=== PATIENT | male | born 1955 | race Caucasian/White ===

== ENCOUNTER → 2016-07-05 | Outpatient (CLI) | payer OTHER ==
[~2016-07-05] MED LIST: CHOL100010 PO; ESCI10TA17 PO; FIBER; FRS/40 PO; HYDROMORPHONE PUMP; LEVO-217 PO; LISI5TAB3 PO; MORP15TA PO; MRPSR60 PO; MULT-506 PO; POLY335019 PO; TOPI25TA99 PO; TRAZ50TA35 PO
--- NOTE | 2016-07-05 16:28 | DIAGNOSTIC IMAGING REPORT ---
THORACOLUMBAR SPINE 2 VIEWS CLINICAL HISTORY: Lumbago. Post laminectomy syndrome. Lead placement. FINDINGS: AP and lateral views of the thoracolumbar spine are compared to study dated 05/02/2011. The skeletal structures are osteopenic. There is moderate lumbosacral levocurvature. There are postoperative changes from laminectomy and posterior fusion with interposition bone grafting from L4 to S1. A spinal stimulator device projects over the right lower quadrant. The pain pump catheter appears intact, and enters the central spinal canal posteriorly at the level of L2-L3. This extends superiorly into the thoracic region, and intrathecal leads have been placed. These enter the spinal canal at the level of T11 and terminate at the level of T8-T9. Vertebral body height is grossly intact. Alignment appears preserved. There is a nonobstructed abdominal bowel gas pattern noting moderate colonic fecal retention. It likely terminates at the level of T10. A benign appearing sclerotic lesion in the medial left ilium is unchanged from previous. The bony pelvis is intact as visualized. IMPRESSION: 1. Intrathecal leads and pain pump as above. The leads and pump appear intact. 2. Extensive chronic and postoperative changes as above. Dictated: 07/05/2016 4:10 PM Transcribed: 07/05/2016 4:27 PM [email or web address] Electronically signed by: Davey Trejo M.D. 07/05/2016 4:43 PM Dictated Date/Time: 07/05/2016 4:10 PM
== END | disposition home or self-care (01) ==
LOC: C.RADBC 15:28
PROVIDERS: ATTEND Anesthesiology
DX: M54.5 Low back pain (principal); M96.1 Postlaminectomy syndrome, not elsewhere classified

== ENCOUNTER → 2016-09-13 | Outpatient (CLI) | payer OTHER ==
[~2016-09-13] MED LIST changes: +OPTIRAY 320 IV PRN
--- NOTE | 2016-09-13 15:45 | DIAGNOSTIC IMAGING REPORT ---
THORACIC SPINE CT WITH AND WITHOUT INTRAVENOUS CONTRAST HISTORY: Intrathecal catheter. Evaluate for catheter tip granuloma. TECHNIQUE: Multiaxial CT images of the thoracic spine were performed both before and after the intravenous administration of contrast. COMPARISON STUDY: Thoracic spine CT 03/12/2013. FINDINGS: Severe levoscoliosis of the thoracolumbar spine. Posterior fusion at L4-L5. No acute fracture or subluxation within the thoracic or visualized lumbar spine. There is again noted an intrathecal catheter entering the spinal canal at the L2-L3 level. This extends cephalad T11 level. The catheter appears intact. There are also spinal electrodes which enter the central canal at the T10-T11 level and extends cephalad terminating at the T8-T9 disc space level. There is a 4 mm partially partially calcified and slightly enhancing nodule at the tip of the intrathecal catheter. This is consistent with a granuloma. IMPRESSION: 1. A 4 mm partially calcified and slightly enhancing nodule at the tip of the intrathecal catheter. This is consistent with a granuloma. 2. The intrathecal catheter appears intact. 3. Spinal electrodes are unchanged in position. 4. Levoscoliosis. Electronically signed by: Darian Wiseman M.D. 09/13/2016 3:43 PM Dictated Date/Time: 09/13/2016 3:14 PM
== END | disposition home or self-care (01) ==
LOC: C.CTS 14:25
PROVIDERS: ATTEND Physician Assistant
DX: M54.5 Low back pain (principal)

== ENCOUNTER → 2017-03-23 | Outpatient (CLI) | payer OTHER ==
[~2017-03-23] MED LIST changes: -FIBER; -HYDROMORPHONE PUMP; -TOPI25TA99 PO
--- NOTE | 2017-03-26 08:01 | DIAGNOSTIC IMAGING REPORT ---
THORACIC SPINE CT WITH AND WITHOUT INTRAVENOUS CONTRAST HISTORY: Back pain. Intrathecal catheter. Evaluate for catheter tip granuloma. TECHNIQUE: Multiaxial CT images of the thoracic spine were performed both before and after the intravenous administration of contrast. COMPARISON STUDY: Thoracic spine CT 09/13/2016. FINDINGS: Severe levoscoliosis of the thoracolumbar spine as well as kyphosis. No acute fracture or subluxation within the thoracic spine. There is again noted an intrathecal catheter. The entry level project engineer is not included on this study. This extends cephalad to the T11 level. The visualized catheter appears intact. There are also spinal electrodes which enter the central canal at the T10-T11 level and extends cephalad terminating at the T8-T9 disc space level. There is a 4 mm partially calcified and slightly enhancing nodule at the tip of the intrathecal catheter. This is consistent with a granuloma and is not significantly changed. There are few punctate stones within the left kidney. IMPRESSION: 1. A 4 mm partially calcified and slightly enhancing nodule at the tip of the intrathecal catheter. This is consistent with a granuloma and is not significantly change. 2. The visualized intrathecal catheter appears intact. 3. Spinal electrodes are unchanged in position. 4. Levoscoliosis. Electronically signed by: Darian Wiseman M.D. 03/23/2017 2:26 PM Dictated Date/Time: 03/23/2017 2:17 PM
== END | disposition home or self-care (01) ==
LOC: C.CTS 11:54
PROVIDERS: ATTEND Physician Assistant Medical
DX: M54.9 Dorsalgia, unspecified (principal); Z96.89 Presence of other specified functional implants

== ENCOUNTER → 2017-09-11 | Outpatient (CLI) | payer OTHER ==
--- NOTE | 2017-09-11 12:48 | DIAGNOSTIC IMAGING REPORT ---
CT OF THE THORACIC SPINE WITH AND WITHOUT CONTRAST CLINICAL HISTORY: Intrathecal catheter. Evaluate for catheter tip granuloma. COMPARISON STUDY: CT of the thoracic spine March 23, 2017. TECHNIQUE: Axial images of the thoracic spine were obtained before and after intravenous administration of 121 cc of Optiray 320. Sagittal and coronal reconstructions were viewed. FINDINGS: Severe levoscoliosis of the proximal lumbar spine is noted with exaggerated kyphosis. No acute fracture or subluxation within the thoracic spine is identified. Intrathecal catheter is noted that enters the canal at the L2-L3 level. Visualized portions of the catheter appear intact although the subcutaneous portion of the catheter is not visualized in its entirety. Catheter extends caudally with the tip at the upper T11 level. Note is made of an 8 mm partially calcified and slightly enhancing nodule at the tip of the intrathecal catheter which was shown on previous exam. This suggests a catheter tip granuloma. Note is made of spinal electrodes which enter the canal at the T10-T11 level with tip at the T8-T9 level. No additional intracanalicular masses are present. Visualized portions of the lungs are unremarkable. Biliary ductal dilatation is unchanged and likely related to cholecystectomy. IMPRESSION: 1. 8 mm partially calcified slightly enhancing nodule at the tip of the intrathecal catheter, as shown on prior exam. This suggests a catheter tip granuloma. 2. Visualized portions of the intrathecal catheter appear intact. However, the catheter is not imaged in its entirety on this exam. 3. Spinal intracanalicular electrodes, as described above. 4. Levoscoliosis. Electronically signed by: Salazar Turner M.D. 09/11/2017 12:47 PM Dictated Date/Time: 09/11/2017 9:55 AM
== END | disposition home or self-care (01) ==
LOC: C.CTS 09:07
PROVIDERS: ATTEND Physician Assistant
DX: M41.9 Scoliosis, unspecified (principal); Z97.8 Presence of other specified devices; M53.84 Other specified dorsopathies, thoracic region

== ENCOUNTER 2022-04-01 12:26 | Inpatient (IN) ==
[2022-04-01] MEDS ORDERED: SODIUM CHLORIDE 0.9% 1000ML 1,000 ML IV STA (12:46)
[2022-04-01] MEDS ORDERED: dilTIAZem HCl 5 MG/ML 5 ML VIAL IV ONE (12:49)
[2022-04-01] MEDS ORDERED: AMIODARONE 150MG / 100ML D5W IV ONE (12:51)
[2022-04-01] MEDS ORDERED: AMIODARONE HCL INJ 50 MG/ML 3 ML VIAL IV ONE (12:51)
[2022-04-01] MEDS ORDERED: AMIODARONE IV BOLUS & DRIP IV STA (12:52)
[2022-04-01] MEDS ORDERED: 0.2 MICRON FILTER SET 1 EACH IV STA (12:52)
[2022-04-01] MEDS ORDERED: STAT IV Infusion **Titration per Protocol STA (12:52)
[2022-04-01] MEDS ORDERED: AMIODARONE / D5W 150 MG/100 ML BAG IV STA (12:52)
[2022-04-01] MEDS ORDERED: AMIODARONE / D5W 360 MG/200 ML BAG IV ONE (13:02)
--- NOTE | 2022-04-01 13:02 | Emergency Department Note ---
Impression & Plan Atrial fibrillation with rapid ventricular response Admission ED Provider Note HPI: The patient is a 66-year-old gentleman with history of hypertension, BPH, hypothyroidism, depression, presents the emergency department with a chief complaint of generalized weakness, fatigue, shortness of breath, and chest discomfort. On my initial assessment patient is tachycardic in the 160s, although he is also noted to be hypotensive in the 80s on my initial evaluation he is alert and conversational. He states he does have some mild chest discomfort that has been constant for the past 4 days. Patient states he has not had a sensation of palpitations at all during this time. Patient is alert and oriented otherwise on arrival, he does not display any focal deficits. De nies any recent fevers or cough, states he generally has just felt unwell, short of breath, and states he has not had much energy. ROS: -Cardio: Tachycardia, chest pressure/pain -General: Generalized weakness, fatigue -Pulmonary: Shortness of breath *10 point review systems was conducted and is otherwise negative unless stated above *Outpatient medications and allergy history reviewed PE: General: Alert HEENT: Normocephalic, trachea midline Eyes: Extraocular eye movement is intact, no scleral erythema Pulmonary: Clear to auscultation bilaterally, no wheezing Cardio: Tachycardic rate with irregular rhythm GI: Abdomen is soft, nontender : No suprapubic tenderness MSK: No evidence of trauma or malformation of the extremities, no edema Skin: No evidence of rash Neuro: Alert, no focal deficits Psychiatric: Cooperative hall monitor: - An order was placed for continuous cardiac monitoring - Patient was noted to be in atrial fibrillation with a rate of 170 EKG: Rate: 174 Rhythm: Atrial fibrillation with RVR Intervals: Within normal limits ST changes: No ST elevation Time: 1246 EKG #2: Rate: 120 Rhythm: Atrial fibrillation Intervals: QTC 511 ms, QRS [address] changes: No ST elevation Time: 1349 Interventions provided in ED: -IV amiodarone, IV metoprolol, IV fluid bolus, IV cefepime Medical Decision Making: Patient presented to the emergency department with symptoms of generalized weakness, shortness of breath, mild chest pain. On arrival he is noted to be in atrial fibrillation with RVR with high heart rates into the 170s. Patient was placed on traffic monitor specialist and [place] was applied, patient was initially hypotensive in the 80s systolic therefore fluid bolus was initiated and patient was initiated on amiodarone bolus and drip. Following these interventions, the patient's heart rate did improve into the 130s, blood pressure improved to greater than 100 systolic. Patient states he was symptomatically beginning to feel improved. Initial EKG shows atrial fibrillation with RVR with no obvious ischemic changes. Repeat EKG does not show any evidence of ST elevation and rate is more controlled now 120. Lab work shows an elevated high-sensitivity troponin level of 57, on my reassessment the patient states he is feeling improved. CT angiography of the chest was obtained that does not show any evidence of aortic dissection or PE, is suggestive of right-sided pneumonia. Blood cultures were ordered and patient was ordered a dose of IV cefepime for potential pneumonia, will hold on azithromycin secondary to interaction with amiodarone. Case was discussed with on-call cardiology, Dr. Uriarte, who was in agreement with initiation of amiodarone given the patient's initial hypotension. Patient will be continued on amiodarone drip. He was placed on heparin drip for elevated troponin and new onset atrial fibrillation and is placed for inpatient admission for further discussion on anticoagulation strategy and trending of troponin. No evidence of ST elevation on repeat EKG, no indication for heart alert at this time, patient states he is feeling much improved from his presentation on my reassessment. [facility] was consulted for admission. I discussed the case with the on-call admitting midlevel provider. Patient was admitted in stable condition for further care. * CRITICAL CARE TIME: (55) minutes -Time spent at the bedside and stabilization of tachyarrhythmia/atrial fibrillation with RVR requiring IV medications for rate control, time spent at the bedside, interpretation of diagnostic studies, discussion with other physicians and arrangement of admission. Diagnosis: 1. Atrial fibrillation with RVR, new onset 2. Elevated troponin 3. Community-acquired pneumonia, right-sided 4. Chest pain, acute 5. Generalized weakness 6. Dyspnea Disposition: Admission Jp Tuttle DO Emergency Medicine Past Med/Surg History Medical History Chronic venous stasis dermatitis Depression History of broken collarbone Hypertension Hypothyroidism Kyphoscoliosis Lower extremity venous stasis Lumbar stenosis Osteoporosis Postlaminectomy syndrome of lumbosacral region Sacroiliitis Scoliosis Testicular hernia history of Surgical History Encounter for post-sterilization vasoplasty History of appendectomy Previous back surgery S/P hernia repair Family History Mother Colitis Brother Colitis Hypertension Sister Hypertension Father Hypertension Prostate cancer Myocardial infarction Denies family history of Ovarian cancer Coronary heart disease Breast cancer Colorectal cancer Social History Smoking Status: Never smoker Second Hand Exposure: No; Hx Alcohol Use: No Hx Substance Use: No Preferred Language: Faroese Communication Ability: Effective Visual Impairment: Limited Hearing Ability: Normal Beliefs That Will Affect Care: None marital status: Current Living Situation: Spouse current occupational status: disabled Feels Safe at Home: Yes Childhood Exposure to Second-Hand Smoke: No caffeine: Yes Dental Care, Regularly: Yes Physical Activity Frequency: Daily Seatbelt Use: always Sunscreen Use: Yes Allergies Allergies Allergy/AdvReac Type Severity Reaction Status Date / Time Penicillins Allergy Unknown Rash Verified 04/01/22 15:22 sumatriptan [From Imitrex] Allergy Rash Verified 04/01/22 15:22 Home Meds Home Medications Medication Instructions Recorded Confirmed multivitamin 1 tab PO DAILY 05/17/18 04/01/22 cholecalciferol (vitamin D3) 25 1,000 unit PO DAILY 01/28/19 04/01/22 mcg (1,000 unit) tablet albuterol sulfate 90 mcg/actuation 2 puff inhalation Q6H PRN 09/29/21 04/01/22 aerosol inhaler (ProAir HFA) Shortness Of Breath fluticasone 500 mcg-salmeterol 50 1 inh inhalation BID 09/29/21 04/01/22 mcg/dose blistr powdr for inhalation (Wixela Inhub) escitalopram oxalate 20 mg tablet 20 mg PO DAILY 02/02/22 04/01/22 (Lexapro) Previous Rx's Medication Instructions Recorded polyethylene glycol 3350 8.5 gram 17 gm PO DAILY #72 ea 03/14/19 oral powder packet furosemide 40 mg tablet 40 mg PO DAILY #90 tabs 05/24/21 naloxone 4 mg/actuation nasal 4 mg intranasal Q2M PRN opioid 07/21/21 spray (Narcan) overdose #2 ea baclofen 10 mg tablet 10 mg PO TID #30 tabs 10/27/21 lisinopril 5 mg tablet 5 mg PO DAILY #90 tabs 01/24/22 trazodone 50 mg tablet 100 mg PO HS 90 days #180 tabs 01/26/22 hydrocodone 5 mg-acetaminophen 325 1 tab PO BID PRN break through 02/02/22 mg tablet pain #60 tabs levothyroxine 100 mcg tablet 100 mcg PO QAM #90 tabs 02/20/22 Results & Data (ED) Vital Signs Vital Signs - 24 hr 04/01/22 12:31 04/01/22 12:48 04/01/22 12:49 Temperature 36.9 C Temperature Source Temporal Artery Scan Pulse Rate 105 H Pulse Rate [Right Finger] 168 H Pulse Rhythm [Right Finger] Irregular Pulse Strength [Right Finger] Respiratory Rate 22 40 H Respiratory Effort / Characteristics Non-Labored Respiratory Depth Normal Respiratory Pattern Blood Pressure 99/63 L Blood Pressure [Right Arm] 103/54 L 82/60 L Blood Pressure Mean 75 Blood Pressure Mean [Right Arm] 70 67 Blood Pressure Position [Right Arm] Pulse Oximetry 97 95 Oxygen Delivery Method Room Air Nasal Cannula Oxygen Flow Rate 3 Sepsis New/Unexplained Change in Mental Status No Sepsis Action Taken by Nursing No Action Required Pulse Oximetry Post Tiitration 04/01/22 13:14 04/01/22 13:14 04/01/22 13:16 Temperature Temperature Source Pulse Rate Pulse Rate [Right Finger] 129 H Pulse Rhythm [Right Finger] Pulse Strength [Right Finger] Respiratory Rate Respiratory Effort / Characteristics Respiratory Depth Respiratory Pattern Blood Pressure Blood Pressure [Right Arm] 87/71 L Blood Pressure Mean Blood Pressure Mean [Right Arm] 76 Blood Pressure Position [Right Arm] Pulse Oximetry 98 98 Oxygen Delivery Method Nasal Cannula Nasal Cannula Nasal Cannula Oxygen Flow Rate 3 3 3 Sepsis New/Unexplained Change in Mental Status Sepsis Action Taken by Nursing Pulse Oximetry Post Tiitration 98 04/01/22 13:20 04/01/22 13:30 04/01/22 13:36 Temperature Temperature Source Pulse Rate Pulse Rate [Right Finger] 128 H 144 H 136 H Pulse Rhythm [Right Finger] Pulse Strength [Right Finger] Respiratory Rate Respiratory Effort / Characteristics Respiratory Depth Respiratory Pattern Blood Pressure Blood Pressure [Right Arm] 100/73 124/63 118/70 Blood Pressure Mean Blood Pressure Mean [Right Arm] 82 83 86 Blood Pressure Position [Right Arm] Pulse Oximetry 99 Oxygen Delivery Method Nasal Cannula Oxygen Flow Rate 3 Sepsis New/Unexplained Change in Mental Status Sepsis Action Taken by Nursing Pulse Oximetry Post Tiitration 04/01/22 13:41 04/01/22 13:51 04/01/22 14:06 Temperature Temperature Source Pulse Rate 127 H Pulse Rate [Right Finger] 110 H 115 H Pulse Rhythm [Right Finger] Pulse Strength [Right Finger] Respiratory Rate Respiratory Effort / Characteristics Respiratory Depth Respiratory Pattern Blood Pressure 106/64 Blood Pressure [Right Arm] 117/71 94/69 L Blood Pressure Mean Blood Pressure Mean [Right Arm] 86 77 Blood Pressure Position [Right Arm] Pulse Oximetry Oxygen Delivery Method Oxygen Flow Rate Sepsis New/Unexplained Change in Mental Status Sepsis Action Taken by Nursing Pulse Oximetry Post Tiitration 04/01/22 14:48 04/01/22 15:13 Temperature Temperature Source Pulse Rate Pulse Rate [Right Finger] 123 H 115 H Pulse Rhythm [Right Finger] Irregular Pulse Strength [Right Finger] Normal Respiratory Rate 20 Respiratory Effort / Characteristics Non-Labored Respiratory Depth Normal Respiratory Pattern Regular Blood Pressure Blood Pressure [Right Arm] 106/71 108/70 Blood Pressure Mean Blood Pressure Mean [Right Arm] 82 82 Blood Pressure Position [Right Arm] Lying Pulse Oximetry 99 99 Oxygen Delivery Method Nasal Cannula Room Air Oxygen Flow Rate 3 Sepsis New/Unexplained Change in Mental Status Sepsis Action Taken by Nursing Pulse Oximetry Post Tiitration Laboratory Data Result diagrams: 04/01/22 12:45 04/01/22 12:45 Lab Results 04/01/22 04/01/22 04/01/22 Range/Units 12:45 12:45 12:45 WBC 9.81 (4.8-10.8) K/ul RBC 4.95 (4.63-6.08) M/uL Hgb 15.5 (14.0-18.0) g/dl Hct 44.7 (40.1-51.0) % MCV 90.3 (80.0-100.0) fL MCH 31.3 (25.0-34.0) pg MCHC 34.7 (32.0-36.0) g/dL RDW Std Deviation 46.0 (36.4-46.3) fL RDW Coeff of Kj 13.7 (11.5-14.5) % Plt Count 212 (130-400) K/uL MPV 9.9 (9.4-12.4) fL Immature Gran % (Auto) 0.2 % Neut % (Auto) 81.1 % Lymph % (Auto) 5.7 % [place] % (Auto) 12.7 % Eos % (Auto) 0.0 % Baso % (Auto) 0.3 % Neut # (Auto) 7.95 H (1.4-6.5) K/uL Lymph # (Auto) 0.56 L (1.2-3.4) K/uL [place] # (Auto) 1.25 H (0.24-0.82) K/uL Eos # (Auto) 0.00 (0-0.50) K/uL Baso # (Auto) 0.03 (0-0.2) K/uL Immature Gran # (Auto) 0.02 (0.00-0.02) K/uL PT 11.3 (9.0-12.0) Seconds INR 1.1 (0.9-1.1) APTT 34.4 H (21.0-31.0) Seconds PTT Ratio 1.3 Sodium 141 (136-145) mmol/L Potassium 3.8 (3.5-5.1) mmol/L Chloride 107 (98-107) mmol/L Carbon Dioxide 24 (21-32) mmol/L Anion Gap 10 (3-11) BUN 18 (6-23) mg/dl Creatinine 1.03 (0.6-1.4) mg/dl Est Cr Clr Drug Dosing Not Reportable Est GFR ( Amer) 87.9 ml/min Est GFR (Non-Af Amer) 75.9 ml/min BUN/Creatinine Ratio 17.5 (10-20) Glucose 105 H (70-99(Fasting)) mg/dl Calcium 9.8 (8.5-10.1) mg/dl Magnesium 1.5 L (1.7-2.4) mg/dl Total Bilirubin 1.4 H (0.2-1.0) mg/dl AST 13 (13-39) U/L ALT 9 (7-52) U/L Alkaline Phosphatase 53 (34-104) U/L Troponin I High Sens 57.3 H* (0-20) pg/ml Total Protein 7.0 (6.0-8.3) gm/dl Albumin 3.8 (3.4-5.0) gm/dl Globulin 3.2 (2.5-4.0) gm/dl Albumin/Globulin Ratio 1.2 (0.9-2) Lipase 3 L (11-82) U/L TSH (0.300-4.500) uIu/ml SARS-CoV-2, RNA, NAAT (NEGATIVE) 04/01/22 04/01/22 Range/Units 12:45 13:45 WBC (4.8-10.8) K/ul RBC (4.63-6.08) M/uL Hgb (14.0-18.0) g/dl Hct (40.1-51.0) % MCV (80.0-100.0) fL MCH (25.0-34.0) pg MCHC (32.0-36.0) g/dL RDW Std Deviation (36.4-46.3) fL RDW Coeff of Kj (11.5-14.5) % Plt Count (130-400) K/uL MPV (9.4-12.4) fL Immature Gran % (Auto) % Neut % (Auto) % Lymph % (Auto) % [place] % (Auto) % Eos % (Auto) % Baso % (Auto) % Neut # (Auto) (1.4-6.5) K/uL Lymph # (Auto) (1.2-3.4) K/uL [place] # (Auto) (0.24-0.82) K/uL Eos # (Auto) (0-0.50) K/uL Baso # (Auto) (0-0.2) K/uL Immature Gran # (Auto) (0.00-0.02) K/uL PT (9.0-12.0) Seconds INR (0.9-1.1) APTT (21.0-31.0) Seconds PTT Ratio Sodium (136-145) mmol/L Potassium (3.5-5.1) mmol/L Chloride (98-107) mmol/L Carbon Dioxide (21-32) mmol/L Anion Gap (3-11) BUN (6-23) mg/dl Creatinine (0.6-1.4) mg/dl Est Cr Clr Drug Dosing Est GFR ( Amer) ml/min Est GFR (Non-Af Amer) ml/min BUN/Creatinine Ratio (10-20) Glucose (70-99(Fasting)) mg/dl Calcium (8.5-10.1) mg/dl Magnesium (1.7-2.4) mg/dl Total Bilirubin (0.2-1.0) mg/dl AST (13-39) U/L ALT (7-52) U/L Alkaline Phosphatase (34-104) U/L Troponin I High Sens (0-20) pg/ml Total Protein (6.0-8.3) gm/dl Albumin (3.4-5.0) gm/dl Globulin (2.5-4.0) gm/dl Albumin/Globulin Ratio (0.9-2) Lipase (11-82) U/L TSH 1.899 (0.300-4.500) uIu/ml SARS-CoV-2, RNA, NAAT NEGATIVE (NEGATIVE) Administered Medications Amiodarone HCl/Dextrose (Nexterone / D5w) 360 mg in 200 mls @ 33.333 mls/hr IV ONE ONE Stop: 04/01/22 19:01 Last Admin: 04/01/22 13:08 Dose: 1 mg/min, 33.3 mls/hr Documented By: NGOC Co-signed By: LINA Discontinued Medications Amiodarone HCl/Dextrose (Amiodarone 150mg / 100ml D5w) Confirm Administered Dose 150 mg IV .STTapingo-MED ONE Stop: 04/01/22 12:52 Last Admin: 04/01/22 13:10 Dose: Not Given Documented By: NGOC Amiodarone HCl (Amiodarone Hcl Inj 50 Mg/Ml 3 Ml Vial) Confirm Administered Dose 150 mg IV .STK-MED ONE Stop: 04/01/22 12:52 Last Admin: 04/01/22 13:10 Dose: Not Given Documented By: NGOC Amiodarone HCl (Amiodarone Iv Bolus & Drip) 1 each IV NOW STA; Protocol Stop: 04/01/22 12:53 Last Admin: 04/01/22 13:08 Dose: 1 each Documented By: NGOC Diltiazem HCl (Diltiazem Hcl 5 Mg/Ml 5 Ml Vial) Confirm Administered Dose 25 mg IV .STK-MED ONE Stop: 04/01/22 12:50 Last Admin: 04/01/22 13:09 Dose: Not Given Documented By: NGOC Sodium Chloride (Nss 1000ml) 1,000 mls @ 999 mls/hr IV .Q1H1M STA Stop: 04/01/22 13:46 Last Infusion: 04/01/22 14:09 Dose: 0 mls/hr Documented By: Admin: 04/01/22 13:08 Dose: 999 mls/hr Documented By: NGOC Amiodarone HCl/Dextrose (Nexterone / D5w) 150 mg in 100 mls @ 600 mls/hr IV NOW STA Stop: 04/01/22 13:01 Last Infusion: 04/01/22 13:27 Dose: 0 mls/hr Documented By: NGOC Co-signed By: KAYLA Admin: 04/01/22 13:09 Dose: 600 mls/hr Documented By: NGOC Co-signed By: LINA Magnesium Sulfate/Dextrose (Magnesium Sulfate / D5w) 1 gm in 100 mls @ 100 mls/hr IV NOW STA Stop: 04/01/22 14:39 Last Infusion: 04/01/22 14:57 Dose: 0 mls/hr Documented By: Admin: 04/01/22 13:56 Dose: 100 mls/hr Documented By: NGOC Cefepime HCl (Maxipime) 2,000 mg in 20 mls @ 5 mls/min IV NOW STA; Protocol Stop: 04/01/22 15:01 Last Admin: 04/01/22 15:25 Dose: 5 mls/min Documented By: RSL Ioversol (Optiray 320 500ml) 117 ml IV ONCE ONE Stop: 04/01/22 14:41 Last Admin: 04/01/22 14:40 Dose: 117 ml Documented By: LEXA Metoprolol Tartrate (Metoprolol Tartrate 1 Mg/Ml Vial) 5 mg IV NOW STA Stop: 04/01/22 13:33 Last Admin: 04/01/22 13:41 Dose: 5 mg Documented By: NGOC Miscellaneous (Stat Iv Infusion Titration Per Protocol) 1 each N/A NOW STA Stop: 04/01/22 12:53 Last Admin: 04/01/22 13:32 Dose: Not Given Documented By: [facility] [place] Imaging Data Radiologist's Impression: Chest X-Ray 04/01/22 12:46 XR chest 1V portable HISTORY: 66 years-old Male Chest Pain acute chest pain COMPARISON: Chest radiograph 06/18/2021 TECHNIQUE: AP view of the chest FINDINGS: Cardiac silhouette is enlarged. Subsegmental bibasilar opacities with probable trace pleural effusions. No pneumothorax or overt pulmonary edema. Degenerative changes of the shoulders and spine. Stimulator leads overlie the midthoracic spine. IMPRESSION: 1. Cardiomegaly without overt pulmonary edema. 2. Mild bibasilar opacities favor atelectasis. Pneumonitis could appear similar ly. ACT 112: Negative or not required by law. The above report was generated using voice recognition software. It may contain grammatical, syntax or spelling errors. Electronically signed by: Regulo Shabazz M.D. 04/01/2022 1:49 PM Chest CTA 04/01/22 13:48 CT angio chest PE protocol CT DOSE: 804.01 mGy.cm HISTORY: 66 years-old Male with PE. Acute shortness of breath TECHNIQUE: Multiple CTA images of the chest were obtained after the intravenous administration of 117 ml Optiray. Coronal and sagittal MIPS were obtained from the axial data set and were submitted for review. All measurements were obtained according to NASCET criteria. A dose lowering technique was utilized adhering to the principles of ALARA. COMPARISON: Chest radiograph of same day FINDINGS: Limited exam secondary to positioning and respiratory motion artifact. CTA: Moderate cardiomegaly. Piriform dilation of the ascending thoracic aorta measur es up to 4.5 cm at the level of the main pulmonary artery. No dissection. Dilated pulmonary arteries suggestive of pulmonary arterial hypertension. No pulmonary emboli identified. CT CHEST: No thyroid nodule. Nonspecific mediastinal and hilar lymphadenopathy include subcarinal lymph nodes measuring up to 1.7 cm. No pneumothorax. Trace right ple ural effusion. Subsegmental left basilar atelectasis. No overt pulmonary edema. Dense airspace opacities throughout the right lung are most pronounced in the right lower lobe. Tracheobronchial secretions with mucous plugging. Bronchial wall thickening throughout the right lung. Calculated left kidney measure up to 7 mm. Nonspecific diffuse esophageal wall thickening. Unremarkable soft tissues. No acute fracture. Degenerative changes of the shoulders and spine. Partially imaged catheter is are noted within the central canal of the thoracic spine. No acute fracture identified. IMPRESSION: 1. Cardiomegaly without pulmonary emboli identified. 2. Dense airspace opacities throughout the right lung, most pronounced within the right lower lobe compatible with pneumonia. Follow-up imaging after treatment course is needed to document resolution. 3. Mediastinal and hilar lymphadenopathy, favored to be reactive. 4. Left nephrolithiasis. ACT 112: Negative or not required by law. The above report was generated using voice recognition software. It may contain grammatical, syntax or spelling errors. Electronically signed by: Regulo Shabazz M.D. 04/01/2022 2:52 PM Discharge Plan Visit Data Chief Complaint: Shortness of Breath/Dyspnea Stated Complaint: SOB,CHEST/BACK PAIN,THROAT PAIN ED Provider: Jp Tuttle Discharge Problem: Atrial fibrillation with rapid ventricular response Forms Stand Alone Forms: PrePay Prescriptions Prescriptions: No Action multivitamin tablet 1 tab PO DAILY hydrocodone-acetaminophen 5-325 mg tablet 1 tab PO BID PRN (Reason: break through pain) Qty: 60 0RF Rx Instructions: ONGOING THERAPY escitalopram oxalate [Lexapro] 20 mg tablet 20 mg PO DAILY Narcan 4 mg/actuation spray,non-aerosol 4 mg intranasal Q2M PRN (Reason: opioid overdose) Qty: 2 0RF Rx Instructions: spray 1 dose into ONE nostril; alternate nostrils w each dose until help arrives baclofen 10 mg tablet 10 mg PO TID Qty: 30 0RF polyethylene glycol 3350 8.5 gram powder in packet 17 gm PO DAILY Qty: 72 0RF furosemide 40 mg tablet 40 mg PO DAILY Qty: 90 3RF lisinopril 5 mg tablet 5 mg PO DAILY Qty: 90 3RF trazodone 50 mg tablet 100 mg PO HS 90 Days Qty: 180 1RF levothyroxine 100 mcg tablet 100 mcg PO QAM Qty: 90 3RF fluticasone propion-salmeterol [Wixela Inhub] 500-50 mcg/dose blister with device 1 inh inhalation BID albuterol sulfate [ProAir HFA] 90 mcg/actuation HFA aerosol inhaler 2 puff inhalation Q6H PRN (Reason: Shortness Of Breath) cholecalciferol (vitamin D3) 1,000 unit (25 mcg) tablet 1,000 unit PO DAILY Referrals Referrals: Felix Reyes MD [Primary Care Provider] -
[2022-04-01 13:08] LABS: INR 1.1 (0.9-1.1); Partial Thromboplastin Ratio 1.3; Partial Thromboplastin Time 34.4 Seconds (21.0-31.0); Prothrombin Time 11.3 Seconds (9.0-12.0)
[2022-04-01 13:16] LABS: Alanine Aminotransferase 9 U/L (7-52); Albumin Globulin Ratio 1.2 (0.9-2); Albumin Level 3.8 gm/dl (3.4-5.0); Alkaline Phosphatase 53 U/L (34-104); Anion Gap 10 (3-11); Aspartate Aminotransferase 13 U/L (13-39); BUN Creatinine Ratio 17.5 (10-20); Bilirubin,Total 1.4 mg/dl (0.2-1.0); Blood Urea Nitrogen 18 mg/dl (6-23); Calcium 9.8 mg/dl (8.5-10.1); Carbon Dioxide 24 mmol/L (21-32); Chloride 107 mmol/L (98-107); Est GFR (African American) 87.9 ml/min; Est GFR (Non-African American) 75.9 ml/min; Globulin 3.2 gm/dl (2.5-4.0); Glucose 105 mg/dl (70-99(Fasting)); Lipase 3 U/L (11-82); Magnesium 1.5 mg/dl (1.7-2.4); Potassium 3.8 mmol/L (3.5-5.1); Sodium 141 mmol/L (136-145)
[2022-04-01 13:18] LABS: Basophils # (auto) 0.03 K/uL (0-0.2); Basophils % (auto) 0.3 %; Hematocrit (blood only) 44.7 % (40.1-51.0); Hemoglobin 15.5 g/dl (14.0-18.0); Immature Granulocytes # (auto) 0.02 K/uL (0.00-0.02); Immature Granulocytes % (auto) 0.2 %; Lymphocytes # (auto) 0.56 K/uL (1.2-3.4); Lymphocytes % (auto) 5.7 %; Mean Corpuscular Hemoglobin 31.3 pg (25.0-34.0); Mean Corpuscular Hgb Conc 34.7 g/dL (32.0-36.0); Mean Corpuscular Volume 90.3 fL (80.0-100.0); Mean Platelet Volume 9.9 fL (9.4-12.4); Monocytes # (auto) 1.25 K/uL (0.24-0.82); Monocytes % (auto) 12.7 %; Neutrophils # (auto) 7.95 K/uL (1.4-6.5); Neutrophils % (auto) 81.1 %; Platelet Count 212 K/uL (130-400); RDW Coefficient of Variation 13.7 % (11.5-14.5); Red Blood Count 4.95 M/uL (4.63-6.08); White Blood Count 9.81 K/ul (4.8-10.8)
[2022-04-01 13:32] LABS: Troponin I High Sensitivity 57.3 pg/ml (0-20)
[2022-04-01] MEDS ORDERED: METOPROLOL TARTRATE 1 MG/ML VIAL IV STA (13:32)
[2022-04-01] MEDS ORDERED: MAGNESIUM SULFATE / D5W 1 GM/100 ML BAG IV STA (13:40)
--- NOTE | 2022-04-01 13:51 | XRay Report ---
XR chest 1V portable HISTORY: 66 years-old Male Chest Pain acute chest pain COMPARISON: Chest radiograph 06/18/2021 TECHNIQUE: AP view of the chest FINDINGS: Cardiac silhouette is enlarged. Subsegmental bibasilar opacities with probable trace pleural effusion s. No pneumothorax or overt pulmonary edema. Degenerative changes of the shoulders and spine. Stimula tor leads overlie the midthoracic spine. IMPRESSION: 1. Cardiomegaly without overt pulmonary edema. 2. Mild bibasilar opacities favor atelectasis. Pneumonitis could appear similarly. ACT 112: Negative or not required by law. The above report was generated using voice recognition software. It may contain grammatical, syntax o r spelling errors. Electronically signed by: Regulo Shabazz M.D. 04/01/2022 1:49 PM
[2022-04-01] MEDS ORDERED: OPTIRAY 320 500ml IV ONE (14:40)
--- NOTE | 2022-04-01 14:54 | CT Scan Report ---
CT angio chest PE protocol CT DOSE: 804.01 mGy.cm HISTORY: 66 years-old Male with PE. Acute shortness of breath TECHNIQUE: Multiple CTA images of the chest were obtained after the intravenous administration of 117 ml Optiray. Coronal and sagittal MIPS were obtained from the axial data set and were submitted for review. All measurements were obtained according to NASCET criteria. A dose lowering technique was u tilized adhering to the principles of ALARA. COMPARISON: Chest radiograph of same day FINDINGS: Limited exam secondary to positioning and respiratory motion artifact. CTA: Moderate cardiomegaly. Piriform dilation of the ascending thoracic aorta measures up to 4.5 cm at the level of the main pulmonary artery. No dissection. Dilated pulmonary arteries suggestive of pulmonar y arterial hypertension. No pulmonary emboli identified. CT CHEST: No thyroid nodule. Nonspecific mediastinal and hilar lymphadenopathy include subcarinal lymph nodes m easuring up to 1.7 cm. No pneumothorax. Trace right pleural effusion. Subsegmental left basilar atele ctasis. No overt pulmonary edema. Dense airspace opacities throughout the right lung are most pronoun noe in the right lower lobe. Tracheobronchial secretions with mucous plugging. Bronchial wall thicken ing throughout the right lung. Calculated left kidney measure up to 7 mm. Nonspecific diffuse esophageal wall thickening. Unremarkab le soft tissues. No acute fracture. Degenerative changes of the shoulders and spine. Partially imaged catheter is are noted within the central canal of the thoracic spine. No acute fracture identified. IMPRESSION: 1. Cardiomegaly without pulmonary emboli identified. 2. Dense airspace opacities throughout the right lung, most pronounced within the right lower lobe co mpatible with pneumonia. Follow-up imaging after treatment course is needed to document resolution. 3. Mediastinal and hilar lymphadenopathy, favored to be reactive. 4. Left nephrolithiasis. ACT 112: Negative or not required by law. The above report was generated using voice recognition software. It may contain grammatical, syntax o r spelling errors. Electronically signed by: Regulo Shabazz M.D. 04/01/2022 2:52 PM
[2022-04-01] MEDS ORDERED: Heparin IV Adult Wt-Based Standard WITH Bolus Protocol IV STA (14:56)
[2022-04-01] MEDS ORDERED: CEFEPIME 2,000 MG/20 ML VIAL IV STA (14:58)
[2022-04-01] MEDS ORDERED: HEPARIN SOD (PORCINE) 1000 UNIT/ML IV ONE (15:11)
--- NOTE | 2022-04-01 15:19 | History & Physical Report ---
Date of Service April 01, 2022 Assessment & Plan (1) New onset atrial fibrillation: Plan: - Patient presented with some shortness of breath, weakness, chest pain. He was initially found to be in A. fib RVR with HR in 170s, SBP 80 on presentation. He was given a liter bolus and started on amiodarone drip with bolus. Also received 5 mg of Lopressor, with improvement of BP with latest recorded pressure 108/70. HR in 110s. - We will continue him on amiodarone drip, as well as a heparin drip. - Echo ordered. - Cardiology consulted, appreciate their recommendations and assistance. - Repeating magnesium and potassium with goal of mag >2.0, potassium >4.0. (2) Elevated troponin: Plan: - Likely elevated in the setting of new onset A. fib with HR in 170s, hypotension on arrival, as well as pneumonia. - Did present with chest discomfort, 8/10 and associated shortness of breath fatigue/weakness likely due to A. fib/pneumonia. - He is on heparin drip given new onset A. fib and elevated troponin. - We will trend troponin, obtain an echo. (3) Pneumonia: Plan: - Generalized weakness, fatigue, shortness of breath with chest discomfort x4 days. - No leukocytosis, Pro-Eagle negative. - CXR: Mild bibasilar opacities favor atelectasis. Pneumonitis could appear similarly. - Chest CT: Dense airspace opacities throughout the right lung, most pronounced within the right lower lobe compatible with pneumonia. - Started on cefepime in ED, azithromycin held given potential interaction with amiodarone. - QTC 511. - Start on Rocephin plus doxycycline for community-acquired pneumonia, patient coming from home, no recent hospitalizations. (4) Hypertension: Plan: Holding lisinopril and Lasix for now given hypotension in setting of A. fib RVR. (5) Depression: Plan: - Hold Lexapro for now given prolonged QTC. (6) Hypothyroidism: Plan: - Continue levothyroxine 100 mcg daily. - TSH on admission 1.9. (7) Lumbar stenosis: Plan: - Intrathecal pump, baclofen 10 mg 3 times daily. - Has severe kyphosis/scoliosis, chronic shortness of breath for years. He has home inhalers, using albuterol rescue inhaler 3-5 times a day for months at this point. - Not present previous tobacco use, background without chemical exposures. - May benefit from pulmonology consult on discharge for further work-up of shortness of breath. Plan - Admit to PCU. - SCDs, heparin drip for VTE PPx. - Full code. History of Present Illness Chief Complaint: shortness of breath, chest discomfort, weakness and fatigue x 4 days Primary Care Provider: Felix Reyes MD Thom Choe is a 66-year-old male with past medical history significant for hypertension, prediabetes, BPH, hypothyroidism, depression, insomnia, chronic back pain with intrathecal pump who presents today with shortness of breath for the past 4 days associated with chest tightness, congestion, and cough. He has been feeling well at home and has not been able to eat much and has been sleeping majority of the day. His shortness of breath has been ongoing for years at this point, however has been acutely worse over the past week and he is more winded with activities he is typically able to tolerate. Had chest pain for 4 days, but was associated with full body aches so he did not think much of it until today when his chest discomfort got significantly worse and his shortness of breath was too difficult to deal with at home. He states his chest pain was an 8/10 on presentation, now 5/10. Patient presented with initial HR in the 160s, BP 82/60, but was alert and conversational. >95% on 3 L NC, afebrile. He was in A. fib with HR [id number], and given 5 mg IV metoprolol before being started on an amiodarone drip with bolus. Also repleted magnesium with 1 g IV mag. BP improved 117/71, HR 110s, patient remained stable throughout. He was also found to have an elevated tr oponin at 57.3. The case was discussed with cardiology, who recommended continuing amiodarone given his hypotension, as well as starting on heparin drip given new onset A. fib and elevated troponin with chest pain. Labs notable for magnesium 1.5. TSH is within normal limits. T bili mildly elevated at 1.4. His creatinine is somewhat elevated, 1.03 with a baseline 0.60.7. No leukocytosis or anemia, coag panel within normal limits, no electrolyte disturbances other than magnesium. His CXR shows cardiomegaly without overt pulmonary edema, mild bibasilar opacities favor atelectasis. Chest CTA with cardiomegaly, no pulmonary emboli noted. Large anterior stated masses throughout the right lung most pronounced within the right lower lobe compatible with pneumonia. There is mediastinal and hilar lymphadenopathy likely reactive. Left nephrolithiasis. Diffuse esophageal wall thickening. Allergies Allergy/AdvReac Type Severity Reaction Status Date / Time Penicillins Allergy Unknown Rash Verified 04/01/22 15:22 sumatriptan [From Imitrex] Allergy Rash Verified 04/01/22 15:22 Home Medications Medication Instructions Recorded Confirmed Type multivitamin 1 tab PO DAILY 05/17/18 04/01/22 History cholecalciferol (vitamin D3) 25 1,000 unit PO DAILY 01/28/19 04/01/22 History mcg (1,000 unit) tablet polyethylene glycol 3350 8.5 gram 17 gm PO DAILY #72 ea 03/14/19 04/01/22 Rx oral powder packet furosemide 40 mg tablet 40 mg PO DAILY #90 tabs 05/24/21 04/01/22 Rx naloxone 4 mg/actuation nasal 4 mg intranasal Q2M PRN opioid 07/21/21 04/01/22 Rx spray (Narcan) overdose #2 ea albuterol sulfate 90 mcg/actuation 2 puff inhalation Q6H PRN 09/29/21 04/01/22 History aerosol inhaler (ProAir HFA) Shortness Of Breath fluticasone 500 mcg-salmeterol 50 1 inh inhalation BID 09/29/21 04/01/22 History mcg/dose blistr powdr for inhalation (Wixela Inhub) baclofen 10 mg tablet 10 mg PO TID #30 tabs 10/27/21 04/01/22 Rx lisinopril 5 mg tablet 5 mg PO DAILY #90 tabs 01/24/22 04/01/22 Rx trazodone 50 mg tablet 100 mg PO HS 90 days #180 tabs 01/26/22 04/01/22 Rx escitalopram oxalate 20 mg tablet 20 mg PO DAILY 02/02/22 04/01/22 History (Lexapro) hydrocodone 5 mg-acetaminophen 325 1 tab PO BID PRN break through 02/02/22 04/01/22 Rx mg tablet pain #60 tabs levothyroxine 100 mcg tablet 100 mcg PO QAM #90 tabs 02/20/22 04/01/22 Rx Past Med/Surg History Medical History Chronic venous stasis dermatitis Depression History of broken collarbone Hypertension Hypothyroidism Kyphoscoliosis Lower extremity venous stasis Lumbar stenosis Osteoporosis Postlaminectomy syndrome of lumbosacral region Sacroiliitis Scoliosis Testicular hernia history of Surgical History Encounter for post-sterilization vasoplasty History of appendectomy Previous back surgery S/P hernia repair Family History Mother Colitis Brother Colitis Hypertension Sister Hypertension Father Hypertension Prostate cancer Myocardial infarction Denies family history of Ovarian cancer Coronary heart disease Breast cancer Colorectal cancer Social History Smoking Status: Never smoker Second Hand Exposure: No; Hx Alcohol Use: No Hx Substance Use: No Preferred Language: [place]an Communication Ability: Effective Visual Impairment: Limited Hearing Ability: Normal 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 Beliefs That Will Affect Care: None marital status: Current Living Situation: Spouse current occupational status: disabled Other Information That Helps Us Care for You: No Feels Safe at Home: Yes Safety Concerns: Feels Safe At This Time Childhood Exposure to Second-Hand Smoke: No caffeine: Yes Dental Care, Regularly: Yes Physical Activity Frequency: Daily Seatbelt Use: always Sunscreen Use: Yes Assistive Devices: Cane, Glasses, Scooter/Electric Scooter and Walker Review of Systems Review of Systems: Constitutional: Body aches, weakness, fatigue x4 days; no fever/chills, anorexia, night sweats Eyes: No diplopia, no worsening or blurred vision ENT: normal hearing, no trouble swallowing Respiratory: Cough, sinus congestion x4 days, with worsening dyspnea on exertion Cardiovascular: Central chest discomfort for 4 days, worse today 8/10 on presentation, 5/10 now; no tightness or palpitations Abdomen: No pain, nausea, vomiting, diarrhea or constipation : Denies dysuria, hematuria, increased urgency/frequency, urinary retention Musculoskeletal: No joint pain, calf pain, swelling Neurologic: No weakness, numbness/tingling, or balance problems Psychiatric: No anxiety or depression Skin: No rash or itch Physical Exam Physical Exam: Physical exam: General: awake, alert, no apparent distress, on 3 LNC Head: Normocephalic, atraumatic ENT: PERRL, EOMI, no pharyngeal exudate, mucous membranes moist Chest: Some decreased breath sounds in right lower lobes with expiratory wheezing Cardiac: Tachycardic rate, regular rhythm consistent with A. fib; no murmur, no JVD, normal peripheral pulses, good capillary refill Abdominal: NABS x 4 quadrants, soft, nontender to palpation, no rebound, guarding or tenderness Extremities: Normal inspection, no peripheral edema or erythema, calfs n ontender to palpation Psych: Normal mood and affect Neuro: AAO x 3, strength intact bilaterally and rated 5/5, no motor deficits, speech is clear, no peripheral sensory deficits Skin: no rash or erythema Results & Data Results & Data ([facility]) Vital Signs (Past 12 Hours) Vital Signs Temp Pulse Pulse Resp BP BP Pulse Ox 04/01/22 15:13 115 H 20 108/70 99 04/01/22 14:48 123 H 106/71 99 04/01/22 14:06 115 H 94/69 L 04/01/22 13:51 110 H 117/71 04/01/22 13:41 127 H 106/64 04/01/22 13:36 136 H 118/70 04/01/22 13:30 144 H 124/63 99 04/01/22 13:20 128 H 100/73 04/01/22 13:16 129 H 87/71 L 98 04/01/22 13:14 98 04/01/22 13:14 04/01/22 12:49 82/60 L 04/01/22 12:48 168 H 40 H 103/54 L 95 04/01/22 12:31 36.9 C 105 H 22 99/63 L 97 O2 Del Method O2 Flow Rate 04/01/22 15:13 Room Air 04/01/22 14:48 Nasal Cannula 3 04/01/22 14:06 04/01/22 13:51 04/01/22 13:41 04/01/22 13:36 04/01/22 13:30 Nasal Cannula 3 04/01/22 13:20 04/01/22 13:16 Nasal Cannula 3 04/01/22 13:14 Nasal Cannula 3 04/01/22 13:14 Nasal Cannula 3 04/01/22 12:49 04/01/22 12:48 Nasal Cannula 3 04/01/22 12:31 Room Air Laboratory Results Abnormal lab results 04/01/22 04/01/22 04/01/22 Range/Units 12:45 12:45 12:45 Neut # (Auto) 7.95 H (1.4-6.5) K/uL Lymph # (Auto) 0.56 L (1.2-3.4) K/uL [place] # (Auto) 1.25 H (0.24-0.82) K/uL APTT 34.4 H (21.0-31.0) Seconds Glucose 105 H (70-99(Fasting)) mg/dl Magnesium 1.5 L (1.7-2.4) mg/dl Total Bilirubin 1.4 H (0.2-1.0) mg/dl Troponin I High Sens 57.3 H* (0-20) pg/ml Lipase 3 L (11-82) U/L Diagnostic Findings Chest X-Ray 04/01/22 12:46 XR chest 1V portable HISTORY: 66 years-old Male Chest Pain acute chest pain COMPARISON: Chest radiograph 06/18/2021 TECHNIQUE: AP view of the chest FINDINGS: Cardiac silhouette is enlarged. Subsegmental bibasilar opacities with probable trace pleural effusions. No pneumothorax or overt pulmonary edema. Degenerative changes of the shoulders and spine. Stimulator leads overlie the midthoracic spine. IMPRESSION: 1. Cardiomegaly without overt pulmonary edema. 2. Mild bibasilar opacities favor atelectasis. Pneumonitis could appear similarly. ACT 112: Negative or not required by law. The above report was generated using voice recognition software. It may contain grammatical, syntax or spelling errors. Electronically signed by: Regulo Shabazz M.D. 04/01/2022 1:49 PM Chest CTA 04/01/22 13:48 CT angio chest PE protocol CT DOSE: 804.01 mGy.cm HISTORY: 66 years-old Male with PE. Acute shortness of breath TECHNIQUE: Multiple CTA images of the chest were obtained after the intravenous administration of 117 ml Optiray. Coronal and sagittal MIPS were obtained from the axial data set and were submitted for review. All measurements were obtained according to NASCET criteria. A dose lowering technique was utilized ad peter to the principles of ALARA. COMPARISON: Chest radiograph of same day FINDINGS: Limited exam secondary to positioning and respiratory motion artifact. CTA: Moderate cardiomegaly. Piriform dilation of the ascending thoracic aorta measures up to 4.5 cm at the level of the main pulmonary artery. No dissection. Dilated pulmonary arteries suggestive of pulmonary arterial hypertension. No pulmonary emboli identified. CT CHEST: No thyroid nodule. Nonspecific mediastinal and hilar lymphadenopathy include subcarinal lymph nodes measuring up to 1.7 cm. No pneumothorax. Trace right p leural effusion. Subsegmental left basilar atelectasis. No overt pulmonary edema. Dense airspace opacities throughout the right lung are most pronounced in the right lower lobe. Tracheobronchial secretions with mucous plugging. Bronchial wall thickening throughout the right lung. Calculated left kidney measure up to 7 mm. Nonspecific diffuse esophageal wall thickening. Unremarkable soft tissues. No acute fracture. Degenerative changes of the shoulders and spine. Partially imaged catheter is are noted within the central canal of the thoracic spine. No acute fracture identified. IMPRESSION: 1. Cardiomegaly without pulmonary emboli identified. 2. Dense airspace opacities throughout the right lung, most pronounced within the right lower lobe compatible with pneumonia. Follow-up imaging after treatment course is needed to document resolution. 3. Mediastinal and hilar lymphadenopathy, favored to be reactive. 4. Left nephrolithiasis. ACT 112: Negative or not required by law. The above report was generated using voice recognition software. It may contain grammatical, syntax or spelling errors. Electronically signed by: Regulo Shabazz M.D. 04/01/2022 2:52 PM ECG Additional Comments: 04/01/22 12:46 PM: Poor data quality, interpretation may be adversely affected Atrial fibrillation with rapid ventricular response Incomplete right bundle branch block Possible Right ventricular hypertrophy Marked ST abnormality, possible inferior subendocardial injury Abnormal ECG When compared with ECG of 18-JUN-2021 08:11, Significant changes have occurred 04/01/22 1:09 PM: Atrial fibrillation with rapid ventricular response Right bundle branch block Lateral infarct , age undetermined Abnormal ECG When compared with ECG of 01-APR-2022 12:46, (unconfirmed) ST less depressed in Anterior leads Nonspecific T wave abnormality no longer evident in Lateral leads 04/01/22 1:49 PM: Atrial fibrillation with rapid ventricular response Right bundle branch block Possible Lateral infarct (cited on or before 01-APR-2022) Cannot rule out Inferior infarct , age undetermined Abnormal ECG When compared with ECG of 01-APR-2022 13:09, (unconfirmed) No significant change was found Code Status & VTE Plan Code Status Full code. Supervising Physician Co-Signing Physician Notes Patient seen and examined, chart reviewed, case discussed with Dulce Maria Quintero PA-C and I agree with the assessment and plan as above except as otherwise noted Labs and images reviewed 66-year-old male with history of hypertension, impaired fasting glucose, hypothyroidism, back pain with intrathecal pump who presents with several days of chest tightness, congestion, cough, and shortness of breath. Patient is found to be in new onset A. fib with rate improvement with fluids, 1 dose of IV Lopressor, and amiodarone load plus gtt. Echo pending. Troponin mildly elevated, trended and patient started on heparin drip for new A. fib. Presented with chest pain/shortness of breath, pain is improved at time of bedside assessment. CT shows dense airspace opacities consistent with pneumonia likely precipitating factor for A. fib. Continue antibiotics as above, A. fib rate control as noted, and cardiology consulted. Patient is tachycardic at bedside, has diffuse expiratory wheezing and diminished breath sounds in right without crackles/rales. PG Care Time/CCT Total # of Minutes Spent Total Time Spent with Patient: Total time spent is greater than 50% in coordination of care (as documented) at patient's floor/unit and/or counseling patient: Coding Level of Care Code 73926 Initial Inpt Care Lvl 3 Diagnoses New onset atrial fibrillation I48.91 Elevated troponin R77.8 Pneumonia J18.9 Hypertension I10 Depression F32.9 Hypothyroidism E03.9 Lumbar stenosis M48.061
[2022-04-01] MEDS ORDERED: MAGNESIUM SULFATE / D5W 1 GM/100 ML BAG IV ONE (15:38)
[2022-04-01] MEDS ORDERED: POTASSIUM CHLORIDE CRTAB 20 MEQ TABCR PO STA (15:47)
[2022-04-01] MEDS: HEPARIN SODIUM/DEXTROSE 25,000 UNITS/500 ML BAG IV SCH (16:35)
[2022-04-01] MEDS ORDERED: POLYETHYLENE (MIRALAX) 17 GM PACK PO PRN (17:48)
[2022-04-01] MEDS: AMIODARONE / D5W 360 MG/200 ML BAG IV SCH (18:35)
[2022-04-01] MEDS: LEVALBUTEROL HCL 0.63 MG/3 ML NEB NEB SCH (19:26)
[2022-04-01] MEDS: DOXYCYCLINE HYCLATE 100 MG in DEXTROSE 5% 100 ML IV SCH (19:46)
[2022-04-01] MEDS: POTASSIUM CHLORIDE CRTAB 20 MEQ TABCR PO SCH (19:46)
[2022-04-01] MEDS: BACLOFEN 10 MG TAB PO SCH (19:46)
[2022-04-01] MEDS: MAGNESIUM SULFATE / D5W 1 GM/100 ML BAG IV SCH ×2 (19:55→21:55)
[2022-04-01] MEDS: ACETAMINOPHEN 325 MG TAB PO PRN (19:59)
--- NOTE | 2022-04-01 21:54 | Communication Note ---
Date of Service: April 01, 2022 Notified by RN that patient complaining of left sided chest pressure and she did obtain repeat EKGs. On my evaluation of patient in room, he states that he has some L sided chest pressure radiating to the right side that feels like his hx of heart burn. Patient reports recent hx of heart burn that has been well controlled with Tums OTC at home. He has not monitored for triggers of the heart burn but does note that he ate some chocolate ice cream just prior to current increase in pain. Patient rates that current pain at a 4/10. He notes that it is not nearly as bad as the pain that initially brought him to the ER which was more of a 7/10. Additionally, patient complains of a metallic taste in his mouth. Heart is RRR. No murmur appreciated. Abd is soft and nontender. Lungs CTAB. repeat trop pending -- 57.3 on admission --> 132.8 (peaked) --> 115.1. Suspect demand ischemia secondary to new onset a fib on presentation. Echo ordered and is pending Patient did convert to NSR shortly after 8pm and has remained in sinus with rates in the 70s. Discussed with patient that current symptoms could also be related to GI/GERD. Will trial tums (as patient takes these at home with relief). Can consider initiation of PPI Resident Activity Tracking Resident Involvement: Resident Care Provided Care Provided: Adult Hospital Medicine
[2022-04-01] MEDS ORDERED: CALCIUM CARBONATE 500 MG CHEWABLE TAB PO ONE (22:15)
[2022-04-02] MEDS: LEVALBUTEROL HCL 0.63 MG/3 ML NEB NEB SCH ×4 (00:19→19:49)
[2022-04-02 00:59] LABS: Partial Thromboplastin Ratio 4.5
[2022-04-02] MEDS ORDERED: COUGH DROP (SUGAR FREE) LOZ 24 LOZ/1 BOX BUCCAL PRN (03:07)
[2022-04-02] MEDS ORDERED: COUGH DROP (SUGAR FREE) LOZ 24 LOZ/1 BOX BUCCAL ONE (03:21)
[2022-04-02] MEDS: ALUMINUM/MAGNESIUM SUSP 30 ML UDC PO PRN ×4 (03:31→22:06)
[2022-04-02] MEDS: LEVOTHYROXINE SODIUM 100 MCG TABLET PO SCH (06:28)
[2022-04-02] MEDS: AMIODARONE / D5W 360 MG/200 ML BAG IV SCH ×2 (06:38→17:59)
[2022-04-02 07:51] LABS: Partial Thromboplastin Ratio 2.1
[2022-04-02 08:02] LABS: Partial Thromboplastin Time 58.7 Seconds (21.0-31.0)
[2022-04-02] MEDS: POTASSIUM CHLORIDE CRTAB 20 MEQ TABCR PO SCH ×2 (08:26→20:21)
[2022-04-02] MEDS: FLUTICASONE/VILANTEROL 200/25MCG 14 PUFFS/INHALER INH SCH (08:27)
[2022-04-02] MEDS: BACLOFEN 10 MG TAB PO SCH ×3 (08:27→20:21)
[2022-04-02] MEDS: MULTIVITAMIN TAB PO SCH (08:28)
[2022-04-02] MEDS: CHOLECALCIFEROL 1,000 UNITS 25 MCG TAB PO SCH (08:28)
[2022-04-02] MEDS: DOXYCYCLINE HYCLATE 100 MG in DEXTROSE 5% 100 ML IV SCH ×2 (08:29→20:18)
[2022-04-02] MEDS: POLYETHYLENE (MIRALAX) 17 GM PACK PO SCH (08:29)
[2022-04-02] MEDS: HEPARIN SODIUM/DEXTROSE 25,000 UNITS/500 ML BAG IV SCH ×2 (08:37→20:17)
[2022-04-02] MEDS: cefTRIAXone SODIUM 2,000 MG in DEXTROSE 5% 50 ML IV SCH (08:37)
[2022-04-02 08:45] LABS: Albumin Globulin Ratio 1.2 (0.9-2); Albumin Level 3.1 gm/dl (3.4-5.0); BUN Creatinine Ratio 27.1 (10-20); Bilirubin,Total 0.7 mg/dl (0.2-1.0); Creatinine Clr Calc Pharmacy 126.5 ml/min; Est GFR (African American) 114.8 ml/min; Globulin 2.6 gm/dl (2.5-4.0); Potassium 3.8 mmol/L (3.5-5.1); Total Protein 5.7 gm/dl (6.0-8.3)
[2022-04-02] MEDS ORDERED: PANTOprazole 40 MG in SYRINGE 0 ML IV SCH (12:50)
[2022-04-02] MEDS ORDERED: FAMOTIDINE 20 MG in SYRINGE 3 ML IV STA (12:56)
[2022-04-02] MEDS ORDERED: PANTOPRAZOLE BOLUS/DRIP 1 EACH IV STA (12:58)
[2022-04-02] MEDS ORDERED: PANTOprazole 80 MG in DEXTROSE 5% 100 ML IV ONE (13:00)
[2022-04-02 13:09] LABS: Hematocrit (blood only) 37.4 % (40.1-51.0); Hemoglobin 12.8 g/dl (14.0-18.0); Mean Corpuscular Hemoglobin 31.4 pg (25.0-34.0); Mean Corpuscular Hgb Conc 34.2 g/dL (32.0-36.0); Mean Corpuscular Volume 91.7 fL (80.0-100.0); Mean Platelet Volume 10.1 fL (9.4-12.4); Platelet Count 163 K/uL (130-400); RDW Coefficient of Variation 13.7 % (11.5-14.5); RDW Standard Deviation 46.3 fL (36.4-46.3); Red Blood Count 4.08 M/uL (4.63-6.08); White Blood Count 9.56 K/ul (4.8-10.8)
[2022-04-02 13:38] LABS: Basophils # (auto) 0.02 K/uL (0-0.2); Basophils % (auto) 0.2 %; Dohle Bodies 1+; Echinocytes 1+; Eosinophils # (auto) 0.04 K/uL (0-0.50); Eosinophils % (auto) 0.4 %; Immature Granulocytes # (auto) 0.01 K/uL (0.00-0.02); Immature Granulocytes % (auto) 0.1 %; Lymphocytes # (auto) 1.44 K/uL (1.2-3.4); Lymphocytes % (auto) 15.1 %; Monocytes # (auto) 0.91 K/uL (0.24-0.82); Monocytes % (auto) 9.5 %; Neutrophils # (auto) 7.14 K/uL (1.4-6.5); Neutrophils % (auto) 74.7 %
[2022-04-02] MEDS: PANTOprazole 40 MG in DEXTROSE 5% 100 ML IV SCH ×2 (14:43→17:11)
[2022-04-02] MEDS ORDERED: OPTIRAY 350 100ml IV ONE (15:35)
--- NOTE | 2022-04-02 16:16 | CT Scan Report ---
CT OF THE ABDOMEN AND PELVIS WITH CONTRAST CLINICAL HISTORY: acute abdominal pain, melena ?perforation COMPARISON STUDY: Chest CT April 01, 2022. CT of the abdomen and pelvis August 06, 2007. TECHNIQUE: Following IV administration of 87 mL of Optiray, axial images of the abdomen and pelvis we re obtained from the lung bases to the proximal femurs. Images were reviewed in the axial, sagittal, and coronal planes. IV contrast was administered without complication. Automated exposure control wa s utilized for the study. A dose lowering technique was utilized adhering to the principles of ALARA . Oral contrast was administered. CT DOSE: 1412.07 mGy.cm FINDINGS: Extensive right middle lobe and right lower lobe airspace opacity is again noted. This was shown on prior chest CT and suggests pneumonia/aspiration pneumonitis. There is a trace right pleural effusion. Evaluation of the abdomen and pelvis is compromised given difficulty positioning and artif act from surgical hardware and intracanalicular devices. Intracanalicular catheters are partially carlos ged. No pneumatosis, free air or portal venous gas is present. Liver, spleen, adrenal glands and panc reas are unremarkable. Clustered calculi within lower pole of the left kidney are noted. There are no ureteral calculi. There is no hydronephrosis. A cyst within lower pole of the left kidney is present . There is no evidence for a bowel obstruction. Mild gaseous distention of the sigmoid colon is prese nt. Moderate amount of poorly formed stool within the colon and rectum is present. There is no ascite s or lymphadenopathy. No fluid collection is identified to suggest an abscess. Major vasculature is g rossly patent. IMPRESSION: 1. Technically compromised exam but no acute findings identified within the abdomen or pelvis. 2. Mild gaseous distention of the sigmoid colon without convincing evidence for a bowel obstruction. No bowel wall thickening identified. Moderate amount of poorly formed stool within the colon and rect um. 3. Left-sided nephrolithiasis. No ureteral calculi or hydronephrosis. 4. Pneumonia/aspiration pneumonitis within the visualized right lower lung. Trace right pleural effus ion. ACT 112: Negative or not required by law. Electronically signed by: Salazar Turner M.D. 04/02/2022 4:14 PM
--- NOTE | 2022-04-02 17:18 | Cardiology Consultation ---
Date of Consultation April 02, 2022 Assessment & Plan (1) Paroxysmal atrial fibrillation: (2) Elevated troponin: Plan ASSESSMENT/PLAN: 1. Atrial fibrillation with rapid ventricular response: Was quite symptomatic and unstable with hypotension. Converted while on amiodarone. Onset not clear. May be lone A. fib given significant pneumonia. Given that he was quite hypotensive during the episode, can continue amiodarone drip for today. Continue anticoagulation for stroke risk reduction for at least 4 weeks following cardioversion. 2. Elevated troponin: Likely due to demand ischemia in the setting of A. fib with RVR and hypotension and significant pneumonia. Chest pain was likely due to the A. fib and rapid ventricular response. Echo performed and preliminary review demonstrated normal LV systolic function and wall motion. He otherwise has not had anginal symptoms. No indication for urgent cardiac catheterization. 3. Pneumonia: As per primary hospitalist service. 4. Disposition: Dr. Mckenzie will assume his cardiology care tomorrow. Please call with other questions or concerns. Thank you for allowing me to participate in the care of your patient. Please call for any other questions or concerns. Sincerely, Edson Sebastian M.D. History of Present Illness Reason for Consultation: New onset atrial fibrillation Requesting Physician: Dulce Maria Quintero Attending Physician: Don Le MD History of Present Illness Mr. Choe ('mustapha lambert') is a very pleasant 66-year-old gentleman with a history significant for hypertension, hypothyroidism, kyphoscoliosis, lumbar stenosis, and morphine pump and stimulator implantation. He was admitted on 04/01/2022 after presenting with generalized weakness, fatigue, shortness of breath, and chest pain. For the past week, he has been mostly in bed feeling quite ill. His estimates that he would sleep 23 of 24 hours. He was not eating. There was no documented fever but he states that he felt warm. He denies shaking chills. He has a productive cough with brown sputum. He felt short of breath but denies orthopnea. He has chronic swelling and venous stasis dermatitis. He denies melena, hematochezia, or hematuria. While in the emergency department, he was noted to be in A. fib with RVR with heart rates of 174 on initial ECG. He was hypotensive with systolic blood pressure in the 80s at times. He was given intravenous amiodarone bolus and drip as per emergency department provider. With this, his heart rate slowed and his blood pressure improved. He remained on amiodarone drip and heparin drip and converted to sinus rhythm on 04/01/2022 at 8:23 PM. He had chest pain across his chest, describing it as a "weird" feeling. The chest discomfort resolved when his heart rate improved after initiation of amiodarone. The chest pain had been rather constant. Chest pain has since resolved. Review of systems: As above. Review of systems otherwise negative/unremarkable. Family history: Noncontributory. Social history: No smoking. Lives at home with his . His , Anna Marie, was present at the bedside. Allergies Allergy/AdvReac Type Severity Reaction Status Date / Time Penicillins Allergy Unknown Rash Verified 04/01/22 15:22 sumatriptan [From Imitrex] Allergy Rash Verified 04/01/22 15:22 Home Medications Medication Instructions Recorded Confirmed Type multivitamin 1 tab PO DAILY 05/17/18 04/01/22 History cholecalciferol (vitamin D3) 25 1,000 unit PO DAILY 01/28/19 04/01/22 History mcg (1,000 unit) tablet polyethylene glycol 3350 8.5 gram 17 gm PO DAILY #72 ea 03/14/19 04/01/22 Rx oral powder packet furosemide 40 mg tablet 40 mg PO DAILY #90 tabs 05/24/21 04/01/22 Rx naloxone 4 mg/actuation nasal 4 mg intranasal Q2M PRN opioid 07/21/21 04/01/22 Rx spray (Narcan) overdose #2 ea albuterol sulfate 90 mcg/actuation 2 puff inhalation Q6H PRN 09/29/21 04/01/22 History aerosol inhaler (ProAir HFA) Shortness Of Breath fluticasone 500 mcg-salmeterol 50 1 inh inhalation BID 09/29/21 04/01/22 History mcg/dose blistr powdr for inhalation (Viviela Inhub) baclofen 10 mg tablet 10 mg PO TID #30 tabs 10/27/21 04/01/22 Rx lisinopril 5 mg tablet 5 mg PO DAILY #90 tabs 01/24/22 04/01/22 Rx trazodone 50 mg tablet 100 mg PO HS 90 days #180 tabs 01/26/22 04/01/22 Rx escitalopram oxalate 20 mg tablet 20 mg PO DAILY 02/02/22 04/01/22 History (Lexapro) hydrocodone 5 mg-acetaminophen 325 1 tab PO BID PRN break through 02/02/22 04/01/22 Rx mg tablet pain #60 tabs levothyroxine 100 mcg tablet 100 mcg PO QAM #90 tabs 02/20/22 04/01/22 Rx Patient History Medical History Chronic venous stasis dermatitis Depression History of broken collarbone Hypertension Hypothyroidism Kyphoscoliosis Lower extremity venous stasis Lumbar stenosis Osteoporosis Postlaminectomy syndrome of lumbosacral region Sacroiliitis Scoliosis Testicular hernia history of Surgical History Encounter for post-sterilization vasoplasty History of appendectomy Previous back surgery S/P hernia repair Family History Mother Colitis Brother Colitis Hypertension Sister Hypertension Father Hypertension Prostate cancer Myocardial infarction Denies family history of Ovarian cancer Coronary heart disease Breast cancer Colorectal cancer Social History Smoking Status: Never smoker Second Hand Exposure: No; Hx Alcohol Use: No Hx Substance Use: No Preferred Language: Haitian Communication Ability: Effective Visual Impairment: Limited Hearing Ability: Normal Prefabricated Houses Trimmer Required: No Beliefs That Will Affect Care: None marital status: Current Living Situation: Spouse current occupational status: disabled Other Information That Helps Us Care for You: No Feels Safe at Home: Yes Safety Concerns: Feels Safe At This Time Childhood Exposure to Second-Hand Smoke: No caffeine: Yes Dental Care, Regularly: Yes Physical Activity Frequency: Daily Seatbelt Use: always Sunscreen Use: Yes Assistive Devices: Cane, Glasses, Scooter/Electric Scooter and Walker Physical Exam Physical Exam: Gen.: No acute distress. Alert and oriented. HEENT: Anicteric sclera. Neck: No JVD. No bruits. Normal carotid upstrokes bilaterally. Cardiac: No ventricular heave. Regular. Normal S1-S2. No murmurs, rubs, or gallops. Pulmonary: Coarse breath sounds/rhonchi throughout the right lung field. Extremities: 2+ radial pulses bilaterally. 2+ posterior tibialis pulses bilaterally. Bilateral lower extremity venous stasis changes. Trace bilateral lower extremity edema. No cyanosis. Psychiatric: Affect appears appropriate. Results & Data ([facility]) Vital Signs (Past 12 Hours) Vital Signs Temp Pulse Pulse Resp BP Pulse Ox O2 Del Method 04/02/22 16:23 36.6 C 75 18 129/75 99 Nasal Cannula 04/02/22 11:21 71 20 152/70 H 93 Room Air 04/02/22 09:39 Room Air 04/02/22 07:58 36.6 C 62 18 98/61 L 94 Nasal Cannula 04/02/22 07:28 60 04/02/22 07:12 62 18 94 Nasal Cannula O2 Flow Rate 04/02/22 16:23 1 04/02/22 11:21 04/02/22 09:39 04/02/22 07:58 6 04/02/22 07:28 04/02/22 07:12 6 Intake & Output 03/31/22 04/01/22 04/02/22 04/03/22 06:59 06:59 06:59 06:59 Intake Total 2572.243 / 2572.243 912.8 / 912.8 Output Total 400 / 400 Balance 2572.243 / 2572.243 512.8 / 512.8 Weight 211 lb 13.828 oz 211 lb 13.828 oz Laboratory Results Laboratory Results - last 24 hr 04/01/22 04/01/22 04/01/22 19:41 22:34 22:34 WBC RBC Hgb Hct MCV MCH MCHC RDW Std Deviation RDW Coeff of Kj Plt Count MPV Immature Gran % (Auto) Neut % (Auto) Lymph % (Auto) Price % (Auto) Eos % (Auto) Baso % (Auto) Neut # (Auto) Lymph # (Auto) Price # (Auto) Eos # (Auto) Baso # (Auto) Immature Gran # (Auto) Dohle Bodies Echinocytes APTT Cancelled PTT Ratio Cancelled Sodium Potassium Chloride Carbon Dioxide Anion Gap BUN Creatinine Est Cr Clr Drug Dosing Est GFR ( Amer) Est GFR (Non-Af Amer) BUN/Creatinine Ratio Glucose Calcium Magnesium Total Bilirubin AST ALT Alkaline Phosphatase Troponin I High Sens Cancelled 132.8 H* D Total Protein Albumin Globulin Albumin/Globulin Ratio Hepatitis C Ab (EIA) Hep C Ab Signal/Cutoff Blood Type Antibody Screen 04/02/22 04/02/22 04/02/22 00:24 00:24 07:07 WBC RBC Hgb Hct MCV MCH MCHC RDW Std Deviation RDW Coeff of Kj Plt Count MPV Immature Gran % (Auto) Neut % (Auto) Lymph % (Auto) Price % (Auto) Eos % (Auto) Baso % (Auto) Neut # (Auto) Lymph # (Auto) Price # (Auto) Eos # (Auto) Baso # (Auto) Immature Gran # (Auto) Dohle Bodies Echinocytes APTT 123.0 H* PTT Ratio 4.5 Sodium Potassium Chloride Carbon Dioxide Anion Gap BUN Creatinine Est Cr Clr Drug Dosing Est GFR ( Amer) Est GFR (Non-Af Amer) BUN/Creatinine Ratio Glucose Calcium Magnesium Total Bilirubin AST ALT Alkaline Phosphatase Troponin I High Sens 115.1 H* Total Protein Albumin Globulin Albumin/Globulin Ratio Hepatitis C Ab (EIA) Pending Hep C Ab Signal/Cutoff Pending Blood Type Antibody Screen 04/02/22 04/02/22 04/02/22 07:07 07:07 07:07 WBC RBC Hgb Hct MCV MCH MCHC RDW Std Deviation RDW Coeff of Kj Plt Count MPV Immature Gran % (Auto) Neut % (Auto) Lymph % (Auto) Price % (Auto) Eos % (Auto) Baso % (Auto) Neut # (Auto) Lymph # (Auto) Price # (Auto) Eos # (Auto) Baso # (Auto) Immature Gran # (Auto) Dohle Bodies Echinocytes APTT 58.7 H* PTT Ratio 2.1 Sodium 138 Potassium 3.8 Chloride 107 Carbon Dioxide 25 Anion Gap 6 BUN 19 Creatinine 0.70 D Est Cr Clr Drug Dosing 126.5 Est GFR ( Amer) 114.8 Est GFR (Non-Af Amer) 99.0 BUN/Creatinine Ratio 27.1 H Glucose 121 H Calcium 9.0 Magnesium 2.0 Total Bilirubin 0.7 D AST 12 L ALT 8 Alkaline Phosphatase 41 Troponin I High Sens 67.8 H* D Total Protein 5.7 L Albumin 3.1 L Globulin 2.6 Albumin/Globulin Ratio 1.2 Hepatitis C Ab (EIA) Hep C Ab Signal/Cutoff Blood Type Antibody Screen 04/02/22 04/02/22 04/02/22 12:25 12:57 12:57 WBC 9.56 RBC 4.08 L Hgb 12.8 L Hct 37.4 L MCV 91.7 MCH 31.4 MCHC 34.2 RDW Std Deviation 46.3 RDW Coeff of Kj 13.7 Plt Count 163 MPV 10.1 Immature Gran % (Auto) 0.1 Neut % (Auto) 74.7 Lymph % (Auto) 15.1 Price % (Auto) 9.5 Eos % (Auto) 0.4 Baso % (Auto) 0.2 Neut # (Auto) 7.14 H Lymph # (Auto) 1.44 Price # (Auto) 0.91 H Eos # (Auto) 0.04 Baso # (Auto) 0.02 Immature Gran # (Auto) 0.01 Dohle Bodies 1+ Echinocytes 1+ APTT PTT Ratio Sodium Potassium Chloride Carbon Dioxide Anion Gap BUN Creatinine Est Cr Clr Drug Dosing Est GFR ( Amer) Est GFR (Non-Af Amer) BUN/Creatinine Ratio Glucose Calcium Magnesium Total Bilirubin AST ALT Alkaline Phosphatase Troponin I High Sens 51.7 H* D Total Protein Albumin Globulin Albumin/Globulin Ratio Hepatitis C Ab (EIA) Hep C Ab Signal/Cutoff Blood Type O Positive Antibody Screen NEGATIVE Diagnostic Findings Telemetry personally reviewed: Atrial fibrillation converted to sinus rhythm on 04/01/2022 at 8:[address] abdomen/pelvis 04/02/2022: No acute findings per radiology. Pneumonia/aspiration pneumonitis within visualized right lower lung. CTA chest 04/01/2022: No PE. Dense airspace opacities throughout the right lung, most pronounced within the right lower lobe compatible with pneumonia. ECG personally reviewed 04/01/2022 at 12:46 PM: A. fib RVR 174 bpm. RBBB. ECG 04/01/2022 at 1:09 PM: A. fib 128 bpm. RBBB. ECG 04/01/2022 at 1:49 PM: A. fib 128 bpm. RBBB. ECG 04/01/2022 at 8:57 PM: Sinus rhythm 73 bpm. RBBB. Medications Administered Current Inpatient Medications Acetaminophen (Acetaminophen 325 Mg Tab) 650 mg PO Q4H PRN PRN Reason: Pain or Fever Stop: 05/01/22 17:47 Last Admin: 04/01/22 19:59 Dose: 650 mg Hydrocodone Bitart/Acetaminophen (Hydrocodone/Acetamophen 5/325mg Tab) 1 tab PO BID PRN PRN Reason: break through pain Stop: 04/15/22 17:47 Al Hydrox/Mg Hydrox/Simethicone (Aluminum/Magnesium Susp 30 Ml Udc) 15 ml PO Q4H PRN PRN Reason: Dyspepsia Stop: 05/01/22 17:47 Last Admin: 04/02/22 12:33 Dose: 15 ml Baclofen (Baclofen 10 Mg Tab) 10 mg PO TID SHANKAR Stop: 05/01/22 20:59 Last Admin: 04/02/22 14:15 Dose: 10 mg Escitalopram Oxalate (Escitalopram Oxalate 20 Mg Tab) 20 mg PO DAILY SHANKAR Stop: 05/02/22 08:59 Fluticasone/Vilanterol (Fluticasone/Vilanterol 200/25mcg 14 Puffs/Inhaler) 1 puffs INH DAILY SHANKAR; Protocol Stop: 05/02/22 08:59 Last Admin: 04/02/22 08:27 Dose: 1 puffs Amiodarone HCl/Dextrose (Nexterone / D5w) 360 mg in 200 mls @ 16.667 mls/hr IV .Q12H SHANKAR Stop: 05/01/22 18:59 Last Admin: 04/02/22 06:38 Dose: 0.5 mg/min, 16.7 mls/hr Heparin Sodium/Dextrose (Heparin Sodium/Dextrose) 25,000 units in 500 mls @ 0 mls/hr IV .Q0M SHANKAR; Protocol Stop: 05/01/22 15:14 Last Titration: 04/02/22 12:50 Dose: 0 units/hr, 0 mls/hr Ceftriaxone Sodium 2,000 mg/ (Dextrose) 70 mls @ 100 mls/hr IV DAILY SHANKAR; Protocol Stop: 04/09/22 08:59 Last Infusion: 04/02/22 09:24 Dose: Infused Doxycycline Hyclate 100 mg/ (Dextrose) 110 mls @ 50 mls/hr IV Q12H SHANKAR Stop: 04/08/22 19:59 Last Infusion: 04/02/22 10:48 Dose: Infused Famotidine 20 mg/ Syringe 5 mls @ 2.5 mls/min IV QAM SHANKAR Stop: 05/03/22 08:59 Pantoprazole Sodium 40 mg/ (Dextrose) 100 mls @ 20 mls/hr IV Q5H SHANKAR Stop: 05/02/22 13:14 Last Admin: 04/02/22 17:11 Dose: Not Given Levalbuterol HCl (Levalbuterol Hcl 0.63 Mg/3 Ml Neb) 0.63 mg NEB Q6R SHANKAR; Protocol Stop: 05/01/22 18:59 Last Admin: 04/02/22 13:00 Dose: Not Given Levothyroxine Sodium (Levothyroxine Sodium 100 Mcg Tablet) 100 mcg PO DAILYBB SHANKAR Stop: 05/02/22 06:29 Last Admin: 04/02/22 06:28 Dose: Not Given Menthol (Cough Drop (Sugar Free) Madie 24 Madie/1 Box) 1 madie BUCCAL NOW PRN PRN Reason: Sore Throat Stop: 05/02/22 03:06 Multivitamins (Multivitamin Tab) 1 tab PO QAM SHANKAR Stop: 05/02/22 08:59 Last Admin: 04/02/22 08:28 Dose: 1 tab Ondansetron HCl (Ondansetron Inj 2 Mg/Ml 2 Ml Vial) 4 mg IV Q6H PRN PRN Reason: Nausea Stop: 05/01/22 17:47 Polyethylene Glycol (Polyethylene (Miralax) 17 Gm Pack) 17 gm PO QAM SHANKAR Stop: 05/02/22 08:59 Last Admin: 04/02/22 08:29 Dose: Not Given Potassium Chloride (Potassium Chloride Crtab 20 Meq Tabcr) 20 meq PO BID SHANKAR Stop: 04/03/22 09:01 Last Admin: 04/02/22 08:26 Dose: 20 meq Trazodone HCl (Trazodone Hcl 100 Mg Tab) 100 mg PO HS SHANKAR Stop: 05/01/22 20:59 Vitamin D (Cholecalciferol 1,000 Units 25 Mcg Tab) 1,000 units PO DAILY SHANKAR Stop: 05/02/22 08:59 Last Admin: 04/02/22 08:28 Dose: 1,000 units PG Care Time/CCT Total # of Minutes Spent Total Time Spent with Patient: Total time spent is greater than 50% in coordination of care (as documented) at patient's floor/unit and/or counseling patient: Coding Level of Care Code 43090 Initial Inpt Care Lvl 2 Diagnoses Paroxysmal atrial fibrillation I48.0 Elevated troponin R77.8
--- NOTE | 2022-04-02 19:16 | Hospitalist Progress Note ---
Date of Service April 02, 2022 Assessment & Plan (1) Pneumonia: Plan: - Generalized weakness, fatigue, shortness of breath with chest discomfort x4 days. - No leukocytosis, Pro-Eagle negative. - CXR: Mild bibasilar opacities favor atelectasis. Pneumonitis could appear similarly. - Chest CT: Dense airspace opacities throughout the right lung, most pronounced within the right lower lobe compatible with pneumonia. - Concerning right lower quadrant for aspiration pneumonia. Patient is allergic to penicillins therefore will continue treatment with ceftriaxone and doxycycline. - Speech consult to assess swallowing given concern for aspiration pneumonia. - QTC 511 (2) New onset atrial fibrillation: Plan: - Patient presented with some shortness of breath, weakness, chest pain. He was initially found to be in A. fib RVR with HR in 170s, SBP 80 on presentation. He was given a liter bolus and started on amiodarone drip with bolus. Also received 5 mg of Lopressor, with improvement of BP with latest recorded pressure 108/70. HR in 110s. - We will continue him on amiodarone drip, as well as a heparin drip (temporarily on hold due to concern for GI bleed). - Echo ordered. - Cardiology consulted, appreciate their recommendations and assistance. - Repeating magnesium and potassium with goal of mag >2.0, potassium >4.0. (3) Abdominal pain: Plan: Suspect gastritis/heartburn. Famotidine 20 mg IV now. Initially ordered pantoprazole IV bolus and drip however hemoglobin appears stable therefore switch to pantoprazole 40 mg IV twice daily. Maalox as needed. CT abdomen pelvis with IV and oral contrast showed mild gaseous distention of the sigmoid colon without convincing evidence of bowel obstruction and moderate amounts of poorly formed stool in the colon and rectum. (4) Elevated troponin: Plan: - Appears to be demand related (5) Hypertension: Plan: Holding lisinopril and Lasix for now given hypotension in setting of A. fib RVR. (6) Depression: Plan: - Hold Lexapro for now given prolonged QTC. (7) Hypothyroidism: Plan: - Continue levothyroxine 100 mcg daily. - TSH on admission 1.9. (8) Lumbar stenosis: Plan: - Intrathecal pump, baclofen 10 mg 3 times daily. - Has severe kyphosis/scoliosis, chronic shortness of breath for years. He has home inhalers, using albuterol rescue inhaler 3-5 times a day for months at this point. - Not present previous tobacco use, background without chemical exposures. Plan - Admit to PCU. - SCDs, heparin drip for VTE PPx. - Full code. Admission and Anticipated Discharge Date Admission Date: April 01, 2022 Subjective Main concern today from patient today is abdominal and chest pain. He reports this feels like heartburn. He also reports black stool although this is denied by his nursing staff. Also reporting coughing up blood. No hematemesis. Occurs every time he eats. No rise in troponin following this pain. Review of Systems Review of Systems: All systems reviewed & are unremarkable except as noted in Subjective Physical Exam Constitutional: WD/WN, vitals as above Respiratory: + respiratory distress, + labored breathing, + retractions, + uses accessory muscles and + prolonged expiratory phase; + abnormal respiratory effort Auscultation: + crackles (right base); no diminished lung sounds, no rales, no rhonchi and no wheezes Cardiovascular: Rate/Rhythm: regular rate and regular rhythm Heart Sounds: no murmur Extremities: normal capillary refill; no calf tenderness and no pedal edema Gastrointestinal (Abdomen): Percussion/Palpation: + abdomen tender (generalized but worse in epigastric area) and abdomen soft; no guarding and abdomen not rigid Musculoskeletal: no cyanosis or clubbing, extremities motor strength 5/5 Skin: no rashes, warm and dry Neurologic: moves all extremities and awake; not confused Psychiatric: A+Ox3, euthymic affect Results & Data Results & Data ([facility]) Vital Signs (Past 12 Hours) Vital Signs Temp Pulse Pulse Resp BP Pulse Ox O2 Del Method 04/02/22 18:15 75 04/02/22 16:23 36.6 C 75 18 129/75 99 Nasal Cannula 04/02/22 11:21 71 20 152/70 H 93 Room Air 04/02/22 09:39 Room Air 04/02/22 07:58 36.6 C 62 18 98/61 L 94 Nasal Cannula 04/02/22 07:28 60 O2 Flow Rate 04/02/22 18:15 04/02/22 16:23 1 04/02/22 11:21 04/02/22 09:39 04/02/22 07:58 6 04/02/22 07:28 PG Care Time/CCT Total # of Minutes Spent Total Time Spent with Patient: Total time spent is greater than 50% in coordination of care (as documented) at patient's floor/unit and/or counseling patient: Coding Level of Care Code 93268 Subseq Hosp Care Lvl 3 Diagnoses Pneumonia J18.9 New onset atrial fibrillation I48.91 Abdominal pain R10.9 Elevated troponin R77.8 Hypertension I10 Depression F32.9 Hypothyroidism E03.9 Lumbar stenosis M48.061
[2022-04-02 20:12] LABS: Hematocrit (blood only) 36.6 % (40.1-51.0)
--- NOTE | 2022-04-02 20:47 | Electrocardiogram Report ---
Test Reason : Blood Pressure : / mmHG Vent. Rate : 174 BPM Atrial Rate : 187 BPM P-R Int : 000 ms QRS Dur : 128 ms QT Int : 258 ms P-R-T Axes : 000 060 -16 degrees QTc Int : 439 ms Poor data quality, interpretation may be adversely affected Atrial fibrillation with rapid ventricular response Right bundle branch block Possible Right ventricular hypertrophy Abnormal ECG When compared with ECG of 18-JUN-2021 08:11, Vent. rate has increased by 106 bpm Atrial fibrillation has replaced Sinus rhythm Confirmed by Johnny Sebastian ([id number]) on 04/02/2022 8:47:29 PM Referred By: Confirmed By:Johnny Sebastian
--- NOTE | 2022-04-02 20:52 | Electrocardiogram Report ---
Test Reason : Blood Pressure : / mmHG Vent. Rate : 128 BPM Atrial Rate : 102 BPM P-R Int : 000 ms QRS Dur : 136 ms QT Int : 344 ms P-R-T Axes : 000 047 003 degrees QTc Int : 502 ms Atrial fibrillation with rapid ventricular response Right bundle branch block Possible Lateral infarct , age undetermined Abnormal ECG When compared with ECG of 01-APR-2022 12:46, No significant change Confirmed by Johnny Sebastian ([id number]) on 04/02/2022 8:51:43 PM Referred By: REFERRED SELF Confirmed By:Johnny Sebastian
--- NOTE | 2022-04-02 20:53 | Electrocardiogram Report ---
Test Reason : Blood Pressure : / mmHG Vent. Rate : 120 BPM Atrial Rate : 133 BPM P-R Int : 000 ms QRS Dur : 132 ms QT Int : 362 ms P-R-T Axes : 000 047 008 degrees QTc Int : 511 ms Atrial fibrillation with rapid ventricular response Right bundle branch block Possible Lateral infarct (cited on or before 01-APR-2022) Abnormal ECG When compared with ECG of 01-APR-2022 13:09, No significant change was found Confirmed by Johnny Sebastian ([id number]) on 04/02/2022 8:53:28 PM Referred By: REFERRED SELF Confirmed By:Johnny Sebastian
[2022-04-02] MEDS: PANTOprazole 40 MG in SYRINGE 0 ML IV SCH (21:00)
--- NOTE | 2022-04-02 21:38 | Electrocardiogram Report ---
Test Reason : Blood Pressure : / mmHG Vent. Rate : 073 BPM Atrial Rate : 073 BPM P-R Int : 140 ms QRS Dur : 144 ms QT Int : 416 ms P-R-T Axes : 023 054 001 degrees QTc Int : 458 ms Normal sinus rhythm Right bundle branch block Cannot rule out Lateral infarct (cited on or before 01-APR-2022) Abnormal ECG When compared with ECG of 01-APR-2022 13:49, Sinus rhythm has replaced Atrial fibrillation Vent. rate has decreased BY 47 BPM Confirmed by Johnny Sebastian ([id number]) on 04/02/2022 9:37:50 PM Referred By: REFERRED SELF Confirmed By:Johnny Sebastian
[2022-04-02] MEDS: HYDROCODONE/ACETAMOPHEN 5/325MG TAB PO PRN (22:30)
[2022-04-03] MEDS: LEVALBUTEROL HCL 0.63 MG/3 ML NEB NEB SCH ×4 (01:00→19:11)
[2022-04-03] MEDS ORDERED: HYDROCODONE/ACETAMOPHEN 5/325MG TAB PO ONE (02:25)
--- NOTE | 2022-04-03 05:47 | XCELERA ---
[id number]
[2022-04-03] MEDS: AMIODARONE / D5W 360 MG/200 ML BAG IV SCH ×2 (06:06→18:34)
[2022-04-03] MEDS: LEVOTHYROXINE SODIUM 100 MCG TABLET PO SCH (06:26)
[2022-04-03] MEDS: FLUTICASONE/VILANTEROL 200/25MCG 14 PUFFS/INHALER INH SCH (08:41)
[2022-04-03] MEDS: MULTIVITAMIN TAB PO SCH (08:42)
[2022-04-03] MEDS: CHOLECALCIFEROL 1,000 UNITS 25 MCG TAB PO SCH (08:42)
[2022-04-03] MEDS: PANTOprazole 40 MG in SYRINGE 0 ML IV SCH ×2 (08:43→20:37)
[2022-04-03] MEDS: BACLOFEN 10 MG TAB PO SCH ×3 (08:43→20:37)
[2022-04-03] MEDS: POTASSIUM CHLORIDE CRTAB 20 MEQ TABCR PO SCH (08:43)
[2022-04-03] MEDS: POLYETHYLENE (MIRALAX) 17 GM PACK PO SCH (08:43)
[2022-04-03] MEDS: FAMOTIDINE 20 MG in SYRINGE 3 ML IV SCH (08:49)
[2022-04-03 09:14] LABS: Basophils # (auto) 0.02 K/uL (0-0.2); Basophils % (auto) 0.3 %; Eosinophils # (auto) 0.12 K/uL (0-0.50); Eosinophils % (auto) 1.8 %; Hematocrit (blood only) 40.9 % (40.1-51.0); Hemoglobin 14.1 g/dl (14.0-18.0); Immature Granulocytes # (auto) 0.02 K/uL (0.00-0.02); Immature Granulocytes % (auto) 0.3 %; Lymphocytes # (auto) 1.14 K/uL (1.2-3.4); Lymphocytes % (auto) 16.7 %; Mean Corpuscular Hemoglobin 31.1 pg (25.0-34.0); Mean Corpuscular Hgb Conc 34.5 g/dL (32.0-36.0); Mean Corpuscular Volume 90.3 fL (80.0-100.0); Mean Platelet Volume 10.1 fL (9.4-12.4); Monocytes # (auto) 0.44 K/uL (0.24-0.82); Monocytes % (auto) 6.5 %; Neutrophils # (auto) 5.08 K/uL (1.4-6.5); Neutrophils % (auto) 74.4 %; Platelet Count 180 K/uL (130-400); RDW Coefficient of Variation 13.4 % (11.5-14.5); RDW Standard Deviation 44.9 fL (36.4-46.3); Red Blood Count 4.53 M/uL (4.63-6.08); White Blood Count 6.82 K/ul (4.8-10.8)
[2022-04-03 09:25] LABS: Partial Thromboplastin Ratio 0.9; Partial Thromboplastin Time 25.3 Seconds (21.0-31.0); Prothrombin Time 10.3 Seconds (9.0-12.0)
[2022-04-03 09:41] LABS: Albumin Globulin Ratio 1.2 (0.9-2); Albumin Level 3.6 gm/dl (3.4-5.0); BUN Creatinine Ratio 19.7 (10-20); Bilirubin,Total 0.6 mg/dl (0.2-1.0); Calcium 9.8 mg/dl (8.5-10.1); Creatinine Clr Calc Pharmacy 145.3 ml/min; Est GFR (African American) 121.5 ml/min; Est GFR (Non-African American) 104.8 ml/min; Magnesium 1.7 mg/dl (1.7-2.4); Potassium 3.8 mmol/L (3.5-5.1); Total Protein 6.6 gm/dl (6.0-8.3)
[2022-04-03] MEDS: cefTRIAXone SODIUM 2,000 MG in DEXTROSE 5% 50 ML IV SCH (09:45)
[2022-04-03] MEDS: DOXYCYCLINE HYCLATE 100 MG in DEXTROSE 5% 100 ML IV SCH ×2 (09:45→19:28)
[2022-04-03] MEDS ORDERED: ENOXAPARIN 1 MG/KG SQ SCH (10:00)
[2022-04-03] MEDS: APIXABAN 5 MG TABLET PO SCH ×2 (10:40→20:37)
--- NOTE | 2022-04-03 10:45 | Cardiology Progress Note ---
Date of Service April 03, 2022 Assessment & Plan (1) Paroxysmal atrial fibrillation: (2) Elevated troponin: Plan ASSESSMENT/PLAN: 1. Atrial fibrillation with rapid ventricular response: Likely related to his acute pulmonary process. Certainly places him at risk of additional events subsequently. He apparently had some hemodynamic compromise with rapid ventricular rate yesterday. He did convert to sinus rhythm on amiodarone and infusion has been continued. We will transition to an oral regimen this evening. He will continue on systemic anticoagulation with apixaban. 2. Elevated troponin: Likely due to demand ischemia in the setting of A. fib with RVR and hypotension and significant pneumonia. Chest pain was likely due to the A. fib and rapid ventricular response. Echo performed and preliminary review demonstrated normal LV systolic function and wall motion. He otherwise has not had anginal symptoms. No indication for urgent cardiac catheterization. 3. Pneumonia: There appears to be some debate regarding the etiology of his abnormal imaging. Being treated for bacterial infection. Possibly pneumonitis. Will continue to monitor his rhythm on telemetry. I will transition him to an oral regimen of amiodarone this evening. He will take 400 mg of amiodarone twice daily for 10 days and this can be reduced to 200 mg daily. Will arrange for follow-up in our clinic subsequent to discharge. Admission and Anticipated Discharge Date Admission Date: April 01, 2022 Subjective This morning patient continues to feel poorly. He states that his lungs hurt. This appears to involve just generalized sense of discomfort throughout the thorax. Perhaps worse with deep inspiration. Some mild dyspnea. Coughing. Overall generalized weakness. Review of Systems Review of Systems: Per HPI Physical Exam Physical Exam: The patient is alert and oriented. Mood and affect appeared normal. He answered all questions appropriately. He did appear ill. HEENT: Pupils are equal and reactive to light and accommodation. Extraocular movements are intact. The sclerae are anicteric. Neuro: Cranial nerves intact Lungs: Coarse breath sounds in both bases. Bronchial breath sounds. No expiratory wheezes. Somewhat increased respiratory effort. Cardiac: Heart demonstrates a regular rate and rhythm. Normal S1 and S2. No murmurs on examination. Pulses: The patient has palpable radial pulses bilaterally that are equal in intensity Extremities: There was no evidence of hypoperfusion. There is no cyanosis or clubbing. Mild bilateral lower extremity edema with trophic changes. Skin: I did not appreciate any rashes on examination today. Results & Data ([facility]) Vital Signs (Past 12 Hours) Vital Signs Temp Pulse Pulse Resp BP Pulse Ox O2 Del Method 04/03/22 08:00 Nasal Cannula 04/03/22 07:11 98 H 16 91 Room Air 04/03/22 06:13 36.6 C 56 L 18 115/62 95 Room Air 04/02/22 22:46 80 04/03/22 02:22 36.8 C 66 18 113/59 L 97 Room Air O2 Flow Rate 04/03/22 08:00 1 04/03/22 07:11 04/03/22 06:13 04/02/22 22:46 04/03/22 02:22 Laboratory Results Abnormal Lab Results 04/02/22 04/02/22 04/02/22 12:25 12:57 12:57 WBC 9.56 RBC 4.08 L Hgb 12.8 L Hct 37.4 L MCV 91.7 MCH 31.4 MCHC 34.2 RDW Std Deviation 46.3 RDW Coeff of Kj 13.7 Plt Count 163 MPV 10.1 Immature Gran % (Auto) 0.1 Neut % (Auto) 74.7 Lymph % (Auto) 15.1 Sevier % (Auto) 9.5 Eos % (Auto) 0.4 Baso % (Auto) 0.2 Neut # (Auto) 7.14 H Lymph # (Auto) 1.44 [place]vier # (Auto) 0.91 H Eos # (Auto) 0.04 Baso # (Auto) 0.02 Immature Gran # (Auto) 0.01 Dohle Bodies 1+ Echinocytes 1+ PT INR APTT PTT Ratio Sodium Potassium Chloride Carbon Dioxide Anion Gap BUN Creatinine Est Cr Clr Drug Dosing Est GFR ( Amer) Est GFR (Non-Af Amer) BUN/Creatinine Ratio Glucose Calcium Magnesium Total Bilirubin AST ALT Alkaline Phosphatase Troponin I High Sens 51.7 H* D Total Protein Albumin Globulin Albumin/Globulin Ratio Stool Occult Bld Scrn Blood Type O Positive Antibody Screen NEGATIVE 04/02/22 04/02/22 04/03/22 19:42 23:10 08:56 WBC 6.82 RBC 4.53 L Hgb 13.0 L 14.1 Hct 36.6 L 40.9 MCV 90.3 MCH 31.1 MCHC 34.5 RDW Std Deviation 44.9 RDW Coeff of Kj 13.4 Plt Count 180 MPV 10.1 Immature Gran % (Auto) 0.3 Neut % (Auto) 74.4 Lymph % (Auto) 16.7 Sevier % (Auto) 6.5 Eos % (Auto) 1.8 Baso % (Auto) 0.3 Neut # (Auto) 5.08 Lymph # (Auto) 1.14 L [place] # (Auto) 0.44 Eos # (Auto) 0.12 Baso # (Auto) 0.02 Immature Gran # (Auto) 0.02 Dohle Bodies Echinocytes PT INR APTT PTT Ratio Sodium Potassium Chloride Carbon Dioxide Anion Gap BUN Creatinine Est Cr Clr Drug Dosing Est GFR ( Amer) Est GFR (Non-Af Amer) BUN/Creatinine Ratio Glucose Calcium Magnesium Total Bilirubin AST ALT Alkaline Phosphatase Troponin I High Sens Total Protein Albumin Globulin Albumin/Globulin Ratio Stool Occult Bld Scrn Positive A Blood Type Antibody Screen 04/03/22 04/03/22 08:56 08:56 WBC RBC Hgb Hct MCV MCH MCHC RDW Std Deviation RDW Coeff of Kj Plt Count MPV Immature Gran % (Auto) Neut % (Auto) Lymph % (Auto) Sevier % (Auto) Eos % (Auto) Baso % (Auto) Neut # (Auto) Lymph # (Auto) Sevier # (Auto) Eos # (Auto) Baso # (Auto) Immature Gran # (Auto) Dohle Bodies Echinocytes PT 10.3 INR 1.0 APTT 25.3 PTT Ratio 0.9 Sodium 137 Potassium 3.8 Chloride 105 Carbon Dioxide 24 Anion Gap 8 BUN 12 Creatinine 0.61 Est Cr Clr Drug Dosing 145.3 Est GFR ( Amer) 121.5 Est GFR (Non-Af Amer) 104.8 BUN/Creatinine Ratio 19.7 Glucose 116 H Calcium 9.8 Magnesium 1.7 Total Bilirubin 0.6 AST 14 ALT 10 Alkaline Phosphatase 53 Troponin I High Sens Total Protein 6.6 Albumin 3.6 Globulin 3.0 Albumin/Globulin Ratio 1.2 Stool Occult Bld Scrn Blood Type Antibody Screen Diagnostic Findings Echocardiogram performed today revealed preserved LV systolic function with ejection fraction of 55-60%. No regional wall motion abnormalities. Mild concentric LVH. Mild mitral regurgitation. Moderate left atrial dilation. PG Care Time/CCT Total # of Minutes Spent Total Time Spent with Patient: Total time spent is greater than 50% in coordination of care (as documented) at patient's floor/unit and/or counseling patient: Coding Level of Care Code 81900 Subseq Hosp Care Lvl 2 Diagnoses Paroxysmal atrial fibrillation I48.0 Elevated troponin R77.8
--- NOTE | 2022-04-03 10:59 | Hospitalist Progress Note ---
Date of Service April 03, 2022 Assessment & Plan (1) Pneumonia: Plan: - Generalized weakness, fatigue, shortness of breath with chest discomfort x4 days. - Given generalized muscle aches today will take a bio fire as suspect he has some underlying viral illness in addition to his bacterial pneumonia. - No leukocytosis, Pro-Eagle negative. - CXR: Mild bibasilar opacities favor atelectasis. Pneumonitis could appear similarly. - Chest CT: Dense airspace opacities throughout the right lung, most pronounced within the right lower lobe compatible with pneumonia. - Concerning right lower quadrant for aspiration pneumonia. Patient is allergic to penicillins therefore will continue treatment with ceftriaxone and doxycycline. - Appreciate speech consult. Aspiration precautions ordered. -Chest pain appears to be musculoskeletal in nature. We will continue on [place] ordered overnight for this. (2) New onset atrial fibrillation: Plan: - Patient presented with some shortness of breath, weakness, chest pain. He was initially found to be in A. fib RVR with HR in 170s, SBP 80 on presentation. He was given a liter bolus and started on amiodarone drip with bolus. Also received 5 mg of Lopressor, with improvement of BP with latest recorded pressure 108/70. HR in 110s. - Continue on amiodarone intravenous drip per cardiology recommendations - discussed care with Dr. Mckenzie - Anticoagulation with Eliquis 5 mg p.o. twice daily - We will continue to replete magnesium potassium with a goal of magnesium greater than 2 and potassium greater than 4. (3) Abdominal pain: Plan: Suspect gastritis/heartburn. This appears to be improving and he is currently a poor EGD candidate therefore will defer GI consult at this time. Continue pantoprazole 40 mg IV twice daily and famotidine 20 mg IV daily. Maalox as needed. Will consider adding Carafate if pain continues. Doxycycline possibly making this worse however he does not have of a good choice for atypical coverage given his prolonged QTC. If his QTC improves will consider switching to azithromycin. CT abdomen pelvis with IV and oral contrast showed mild gaseous distention of the sigmoid colon without convincing evidence of bowel obstruction and moderate amounts of poorly formed stool in the colon and rectum. (4) Elevated troponin: Plan: - Appears to be demand related (5) Hypertension: Plan: Continue to hold lisinopril and Lasix with currently normal blood pressure. (6) Depression: Plan: Repeat EKG in a.m. for QTC. We will consider restarting his Lexapro at this time. (7) Hypothyroidism: Plan: - Continue levothyroxine 100 mcg daily. - TSH on admission 1.9. (8) Lumbar stenosis: Plan: - Intrathecal pump, baclofen 10 mg 3 times daily. - Has severe kyphosis/scoliosis, chronic shortness of breath for years. He has home inhalers, using albuterol rescue inhaler 3-5 times a day for months at this point. No wheezing to suggest need for steroids. - Not present previous tobacco use, background without chemical exposures. Plan VTE prophylaxis - Eliquis Diet - heart healthy Disposition - continue on PCU due to amiodarone and intravenous drip. Admission and Anticipated Discharge Date Admission Date: April 01, 2022 Subjective Patient reports waking up this morning feeling pain will of his chest. No physically worse on inspiration or lying down. Appears to be worse on palpation. No radiation. Severity 3 out of 10. He reports his pain when eating has improved but his appetite is also significantly suppressed Tried calling his to update her however no answer on number provided and did not appear to go through to voicemail. Review of Systems Review of Systems: All systems reviewed & are unremarkable except as noted in Subjective Physical Exam Constitutional: WD/WN, vitals as above Respiratory: + respiratory distress, + labored breathing, + retractions, + uses accessory muscles and + prolonged expiratory phase; + abnormal respiratory effort Auscultation: + crackles (right base); no diminished lung sounds, no rales, no rhonchi and no wheezes Cardiovascular: Rate/Rhythm: regular rate and regular rhythm Heart Sounds: no murmur Extremities: normal capillary refill; no calf tenderness and no pedal edema Chest (Breasts): Additional Comments: Reproducible chest pain on exam. Gastrointestinal (Abdomen): Percussion/Palpation: + abdomen tender (generalized but worse in epigastric area, improved from yesterday) and abdomen soft; no guarding and abdomen not rigid Musculoskeletal: no cyanosis or clubbing, extremities motor strength 5/5 Skin: no rashes, warm and dry Neurologic: moves all extremities and awake; not confused Psychiatric: A+Ox3, euthymic affect Results & Data Results & Data ([facility]) Vital Signs (Past 12 Hours) Vital Signs Temp Pulse Resp BP Pulse Ox O2 Del Method O2 Flow Rate 04/03/22 08:00 Nasal Cannula 1 04/03/22 07:11 98 H 16 91 Room Air 04/03/22 06:13 36.6 C 56 L 18 115/62 95 Room Air 04/03/22 02:22 36.8 C 66 18 113/59 L 97 Room Air PG Care Time/CCT Total # of Minutes Spent Total Time Spent with Patient: Total time spent is greater than 50% in coordination of care (as documented) at patient's floor/unit and/or counseling patient: Coding Level of Care Code 14571 Subseq Hosp Care Lvl 3 Diagnoses Pneumonia J18.9 New onset atrial fibrillation I48.91 Abdominal pain R10.9 Elevated troponin R77.8 Hypertension I10 Depression F32.9 Hypothyroidism E03.9 Lumbar stenosis M48.061
[2022-04-03] MEDS ORDERED: PANTOprazole 40 MG in SYRINGE 0 ML IV SCH (11:00)
[2022-04-03] MEDS: HYDROCODONE/ACETAMOPHEN 5/325MG TAB PO PRN ×2 (12:55→19:27)
[2022-04-03 18:37] LABS: Adenovirus PCR Not Detected (NotDetected); Bordetella parapertussis PCR Not Detected (NotDetected); Bordetella pertussis PCR Not Detected (NotDetected); Chlamydia pneumoniae PCR Not Detected (NotDetected); Coronavirus 229E PCR Not Detected (NotDetected); Coronavirus CoV-2 (COVID19)PCR Not Detected (NotDetected); Coronavirus HKU1 PCR Not Detected (NotDetected); Coronavirus NL63 PCR Not Detected (NotDetected); Coronavirus OC43PCR Not Detected (NotDetected); Human Metapneumovirus PCR Not Detected (NotDetected); Influenza A PCR Not Detected (NotDetected); Influenza B PCR Not Detected (NotDetected); Mycoplasma pneumoniae PCR Not Detected (NotDetected); Parainfluenza Virus 1 PCR Not Detected (NotDetected); Parainfluenza Virus 2 PCR Not Detected (NotDetected); Parainfluenza Virus 3 PCR Not Detected (NotDetected); Parainfluenza Virus 4 PCR Not Detected (NotDetected); Rhinovirus/Enterovirus PCR Not Detected (NotDetected)
[2022-04-03 19:28] LABS: Respiratory Syncytial VirusPCR DETECTED (NotDetected)
[2022-04-03] MEDS ORDERED: MAGNESIUM SULFATE / D5W 1 GM/100 ML BAG IV ONE (20:00)
[2022-04-03] MEDS: ALUMINUM/MAGNESIUM SUSP 30 ML UDC PO PRN (22:24)
[2022-04-04] MEDS: LEVOTHYROXINE SODIUM 100 MCG TABLET PO SCH (05:26)
[2022-04-04] MEDS ORDERED: LEVALBUTEROL HCL 0.63 MG/3 ML NEB NEB SCH (07:00)
[2022-04-04] MEDS: AMIODARONE / D5W 360 MG/200 ML BAG IV SCH ×2 (08:28→09:53)
[2022-04-04] MEDS: APIXABAN 5 MG TABLET PO SCH ×2 (08:32→21:06)
[2022-04-04] MEDS: BACLOFEN 10 MG TAB PO SCH ×3 (08:34→21:06)
[2022-04-04] MEDS: CHOLECALCIFEROL 1,000 UNITS 25 MCG TAB PO SCH (08:36)
[2022-04-04] MEDS: FAMOTIDINE 20 MG in SYRINGE 3 ML IV SCH (08:39)
[2022-04-04 08:40] LABS: BUN Creatinine Ratio 15.1 (10-20); Calcium 8.7 mg/dl (8.5-10.1); Creatinine Clr Calc Pharmacy 167.2 ml/min; Est GFR (African American) 128.7 ml/min; Magnesium 1.7 mg/dl (1.7-2.4); Potassium 4.7 mmol/L (3.5-5.1)
[2022-04-04] MEDS: FLUTICASONE/VILANTEROL 200/25MCG 14 PUFFS/INHALER INH SCH (08:40)
[2022-04-04] MEDS: MULTIVITAMIN TAB PO SCH (08:41)
[2022-04-04] MEDS: POLYETHYLENE (MIRALAX) 17 GM PACK PO SCH (08:42)
[2022-04-04 08:48] LABS: Basophils # (auto) 0.03 K/uL (0-0.2); Basophils % (auto) 0.5 %; Eosinophils # (auto) 0.09 K/uL (0-0.50); Eosinophils % (auto) 1.4 %; Hematocrit (blood only) 37.8 % (40.1-51.0); Hemoglobin 12.8 g/dl (14.0-18.0); Immature Granulocytes # (auto) 0.03 K/uL (0.00-0.02); Immature Granulocytes % (auto) 0.5 %; Lymphocytes % (auto) 19.1 %; Mean Corpuscular Hemoglobin 30.5 pg (25.0-34.0); Mean Corpuscular Hgb Conc 33.9 g/dL (32.0-36.0); Mean Corpuscular Volume 90.2 fL (80.0-100.0); Monocytes # (auto) 0.62 K/uL (0.24-0.82); Monocytes % (auto) 9.9 %; Neutrophils # (auto) 4.32 K/uL (1.4-6.5); Neutrophils % (auto) 68.6 %; Platelet Count 167 K/uL (130-400); RDW Coefficient of Variation 13.3 % (11.5-14.5); RDW Standard Deviation 44.2 fL (36.4-46.3); Red Blood Count 4.19 M/uL (4.63-6.08); White Blood Count 6.29 K/ul (4.8-10.8)
[2022-04-04] MEDS: AMIODARONE 200 MG TAB PO SCH ×2 (09:37→17:46)
[2022-04-04] MEDS: cefTRIAXone SODIUM 2,000 MG in DEXTROSE 5% 50 ML IV SCH (09:38)
[2022-04-04] MEDS: DOXYCYCLINE HYCLATE 100 MG in DEXTROSE 5% 100 ML IV SCH ×2 (09:48→21:05)
[2022-04-04] MEDS: PANTOprazole 40 MG in SYRINGE 0 ML IV SCH ×2 (09:56→21:05)
[2022-04-04] MEDS ORDERED: LEVALBUTEROL HCL 0.63 MG/3 ML NEB NEB PRN (10:28)
--- NOTE | 2022-04-04 11:18 | Electrocardiogram Report ---
Test Reason : Blood Pressure : / mmHG Vent. Rate : 067 BPM Atrial Rate : 067 BPM P-R Int : 138 ms QRS Dur : 136 ms QT Int : 440 ms P-R-T Axes : 046 041 020 degrees QTc Int : 464 ms Normal sinus rhythm Right bundle branch block Possible Lateral infarct (cited on or before 01-APR-2022) Abnormal ECG Confirmed by Felix Mckenzie ([id number]) on 04/04/2022 11:17:44 AM Referred By: REFERRED SELF Confirmed By:Dick Mckenzie
--- NOTE | 2022-04-04 21:27 | Hospitalist Progress Note ---
Date of Service April 04, 2022 Assessment & Plan (1) Pneumonia: Plan: RSV, possible aspiration, possible community-acquired pneumonia - CXR: Mild bibasilar opacities favor atelectasis. Pneumonitis could appear similarly. - Chest CT: Dense airspace opacities throughout the right lung, most pronounced within the right lower lobe compatible with pneumonia. - Concerning right lower quadrant for aspiration pneumonia. Patient is allergic to penicillins therefore will continue treatment with ceftriaxone and doxycycline as he appears to be improving on this. - Appreciate speech consult. Aspiration precautions ordered. - Chest pain appears to be musculoskeletal in nature. We will continue on [place] ordered overnight for this. (2) New onset atrial fibrillation: Plan: - Patient presented with some shortness of breath, weakness, chest pain. He was initially found to be in A. fib RVR with HR in 170s, SBP 80 on presentation. He was given a liter bolus and started on amiodarone drip with bolus. Also received 5 mg of Lopressor, with improvement of BP with latest recorded pressure 108/70. HR in 110s. - Continue on amiodarone intravenous drip per cardiology recommendations - discussed care with Dr. Mkcenzie - Anticoagulation with Eliquis 5 mg p.o. twice daily - We will continue to replete magnesium potassium with a goal of magnesium greater than 2 and potassium greater than 4. (3) Abdominal pain: Plan: Suspect gastritis/heartburn, alternatively this may be musculoskeletal This was initially improving but now static. He is currently a poor EGD candidate due to concurrent pneumonia however given persistence of symptoms will consult GI and keep patient NPO after midnight Continue pantoprazole 40 mg IV twice daily and famotidine 20 mg IV daily. Maalox as needed. Will consider adding Carafate if pain continues. Low likelihood doxycycline making this worse given his previous good tolerance to this therefore we will continue. CT abdomen pelvis with IV and oral contrast showed mild gaseous distention of the sigmoid colon without convincing evidence of bowel obstruction and moderate amounts of poorly formed stool in the colon and rectum - he has been having regular bowel movements. (4) Elevated troponin: Plan: - Appears to be demand related (5) Hypertension: Plan: Continue to hold lisinopril and Lasix with currently normal blood pressure. (6) Depression: Plan: Restart Lexapro 20 mg p.o. daily and trazodone 100 mg p.o. at bedtime (7) Hypothyroidism: Plan: - Continue levothyroxine 100 mcg daily. - TSH on admission 1.9. (8) Lumbar stenosis: Plan: - Intrathecal pump, baclofen 10 mg 3 times daily. - Has severe kyphosis/scoliosis, chronic shortness of breath for years. He has home inhalers, using albuterol rescue inhaler 3-5 times a day for months at this point. No wheezing to suggest need for steroids. - Not present previous tobacco use, background without chemical exposures. Plan VTE prophylaxis - Eliquis Diet - heart healthy Disposition -stable for downgrade to [facility] telemetry Admission and Anticipated Discharge Date Admission Date: April 01, 2022 Subjective Patient reports feeling much better in general and no longer having the chest pain. However his epigastric pain after eating is persisting despite pantoprazole and famotidine. No change in his epigastric pain since yesterday and he feels this is severely decreasing his appetite. When discussing doxycy diaz causing GI side effects he reports taking this medication previously without any side effects. Cleared by speech with any mild aspiration precautions -no evidence of aspiration seen and patient declined instrumental testing. Review of Systems Review of Systems: All systems reviewed & are unremarkable except as noted in Subjective Physical Exam Constitutional: WD/WN, vitals as above Respiratory: normal respiratory effort Auscultation: + diminished lung sounds (Right base); no crackles, no rales, no rhonchi and no wheezes Cardiovascular: Rate/Rhythm: regular rate and regular rhythm Heart Sounds: no murmur Extremities: normal capillary refill; no calf tenderness and no p edal edema Gastrointestinal (Abdomen): Percussion/Palpation: + abdomen tender (generalized but worse in epigastric area, improved from yesterday) and abdomen soft; no guarding and abdomen not rigid Musculoskeletal: no cyanosis or clubbing, extremities motor strength 5/5 Skin: no rashes, warm and dry Neurologic: moves all extremities and awake; not confused Psychiatric: A+Ox3, euthymic affect Results & Data Results & Data ([facility]) Vital Signs (Past 12 Hours) Vital Signs Temp Pulse Pulse Resp BP Pulse Ox O2 Del Method 04/04/22 18:54 36.5 C 75 20 120/67 97 Room Air 04/04/22 15:29 36.8 C 78 18 148/71 H 96 Room Air 04/04/22 14:00 62 04/04/22 11:27 36.6 C 80 20 137/74 98 Nasal Cannula O2 Flow Rate 04/04/22 18:54 04/04/22 15:29 04/04/22 14:00 04/04/22 11:27 1 PG Care Time/CCT Total # of Minutes Spent Total Time Spent with Patient: Total time spent is greater than 50% in coordination of care (as documented) at patient's floor/unit and/or counseling patient: Coding Level of Care Code 57305 Subseq Hosp Care Lvl 3 Diagnoses Pneumonia J18.9 New onset atrial fibrillation I48.91 Abdominal pain R10.9 Elevated troponin R77.8 Hypertension I10 Depression F32.9 Hypothyroidism E03.9 Lumbar stenosis M48.061
[2022-04-04] MEDS: traZODone HCL 100 MG TAB PO SCH (21:28)
[2022-04-05] MEDS ORDERED: MAGNESIUM SULFATE / D5W 1 GM/100 ML BAG IV ONE (01:48)
[2022-04-05] MEDS: LEVOTHYROXINE SODIUM 100 MCG TABLET PO SCH (05:46)
[2022-04-05] MEDS: PANTOprazole 40 MG in SYRINGE 0 ML IV SCH ×2 (07:48→21:51)
[2022-04-05] MEDS: AMIODARONE 200 MG TAB PO SCH ×2 (08:35→16:54)
[2022-04-05 08:40] LABS: BUN Creatinine Ratio 17.6 (10-20); Calcium 8.9 mg/dl (8.5-10.1); Creatinine Clr Calc Pharmacy 177.3 ml/min; Est GFR (African American) 130.7 ml/min; Est GFR (Non-African American) 112.8 ml/min; Magnesium 1.9 mg/dl (1.7-2.4); Potassium 4.1 mmol/L (3.5-5.1)
--- NOTE | 2022-04-05 09:34 | Gastrointestinal Consultation ---
Date of Consultation April 05, 2022 Assessment & Plan (1) Abdominal pain: Discussed case with Dr. English who advised on plan. - continue protonix 40mg IV BID, famotidine 20mg IV once daily. - will add carafate 1 gm qid. - would plan for outpatient EGD once recovered from pneumonia. - since pain is coming on with eating, will start patient on clears today to see how he tolerates this. - continue miralax 17gm once daily given moderate amount of stool seen in colon/rectum. History of Present Illness Reason for Consultation: Gastritis/esophagitis Requesting Physician: Dr. Don Le Attending Physician: Don Le MD History of Present Illness Patient is a 66 year old male with past medical history of htn, prediabetes, BPH, hypothyroidism, depression, insomnia, chronic back pain with intrathecal pain pump who presented to ED a few days ago with complaints of shortness of breath, chest tightness, congestion, cough, abdominal pain. He tells me that he had not been feeling well for a period of 2-3 weeks. Since admission he has been diagnosed with pneumonia as well as new A fib with RVR. he tells me that his abdominal pain has been ongoing for a few weeks but has been worse recently. He points to epigastric region. feels sharp. rated 8/10. He tells me that currently he feels fine but notes that his pain only seems to come on after eating. he does admit to frequent heartburn at home but only uses tums. bowel movements regular per patient. Patient denies any current issues with nausea, vomiting, dysphagia, unintentional weight loss, change in bowels, melena, or bright red blood per rectum. He tells me he has never had an egd but does report that he had a colonoscopy a few years ago with the [place] that was unremarkable. Allergies Allergy/AdvReac Type Severity Reaction Status Date / Time Penicillins Allergy Unknown Rash Verified 04/01/22 15:22 sumatriptan [From Imitrex] Allergy Rash Verified 04/01/22 15:22 Home Medications Medication Instructions Recorded Confirmed Type multivitamin 1 tab PO DAILY 05/17/18 04/01/22 History cholecalciferol (vitamin D3) 25 1,000 unit PO DAILY 01/28/19 04/01/22 History mcg (1,000 unit) tablet polyethylene glycol 3350 8.5 gram 17 gm PO DAILY #72 ea 03/14/19 04/01/22 Rx oral powder packet furosemide 40 mg tablet 40 mg PO DAILY #90 tabs 05/24/21 04/01/22 Rx naloxone 4 mg/actuation nasal 4 mg intranasal Q2M PRN opioid 07/21/21 04/01/22 Rx spray (Narcan) overdose #2 ea albuterol sulfate 90 mcg/actuation 2 puff inhalation Q6H PRN 09/29/21 04/01/22 History aerosol inhaler (ProAir HFA) Shortness Of Breath fluticasone 500 mcg-salmeterol 50 1 inh inhalation BID 09/29/21 04/01/22 History mcg/dose blistr powdr for inhalation (Wixela Inhub) baclofen 10 mg tablet 10 mg PO TID #30 tabs 10/27/21 04/01/22 Rx lisinopril 5 mg tablet 5 mg PO DAILY #90 tabs 01/24/22 04/01/22 Rx trazodone 50 mg tablet 100 mg PO HS 90 days #180 tabs 01/26/22 04/01/22 Rx escitalopram oxalate 20 mg tablet 20 mg PO DAILY 02/02/22 04/01/22 History (Lexapro) hydrocodone 5 mg-acetaminophen 325 1 tab PO BID PRN break through 02/02/22 04/01/22 Rx mg tablet pain #60 tabs levothyroxine 100 mcg tablet 100 mcg PO QAM #90 tabs 02/20/22 04/01/22 Rx Patient History Medical History Chronic venous stasis dermatitis Depression History of broken collarbone Hypertension Hypothyroidism Kyphoscoliosis Lower extremity venous stasis Lumbar stenosis Osteoporosis Postlaminectomy syndrome of lumbosacral region Sacroiliitis Scoliosis Testicular hernia history of Surgical History Encounter for post-sterilization vasoplasty History of appendectomy Previous back surgery S/P hernia repair Family History Mother Colitis Brother Colitis Hypertension Sister Hypertension Father Hypertension Prostate cancer Myocardial infarction Denies family history of Ovarian cancer Coronary heart disease Breast cancer Colorectal cancer Social History Smoking Status: Never smoker Second Hand Exposure: No; Hx Alcohol Use: No Hx Substance Use: No Preferred Language: Jamaican Communication Ability: Effective Visual Impairment: Limited Hearing Ability: Normal Hotel Superintendent Required: No Beliefs That Will Affect Care: None marital status: Current Living Situation: Spouse current occupational status: disabled Feels Safe at Home: Yes Childhood Exposure to Second-Hand Smoke: No caffeine: Yes Dental Care, Regularly: Yes Physical Activity Frequency: Daily Seatbelt Use: always Sunscreen Use: Yes Assistive Devices: Cane, Scooter/Electric Scooter and Walker Review of Systems Review of Systems: All systems reviewed & are unremarkable except as noted in HPI & below Physical Exam Constitutional: WD/WN, vitals as above Respiratory: diminished breath sounds, normal respiratory effort. Cardiovascular: RRR, no murmur, no edema Gastrointestinal (Abdomen): epigastric tenderness to palpation, soft, no guarding, normal bowel sounds. Skin: no rashes, warm and dry Psychiatric: Orientation: alert and oriented x 3 Affect: euthymic affect Results & Data ([facility]) Vital Signs (Past 12 Hours) Vital Signs Temp Pulse Pulse Resp BP Pulse Ox O2 Del Method 04/05/22 07:57 36.8 C 71 18 119/79 94 Room Air 04/05/22 06:10 73 04/05/22 02:25 36.8 C 69 20 115/65 96 Room Air 04/04/22 23:01 67 04/04/22 22:29 36.6 C 70 18 133/72 97 Room Air Diagnostic Findings CT OF THE ABDOMEN AND PELVIS WITH CONTRAST CLINICAL HISTORY: acute abdominal pain, melena ?perforation COMPARISON STUDY: Chest CT April 01, 2022. CT of the abdomen and pelvis August 06, 2007. TECHNIQUE: Following IV administration of 87 mL of Optiray, axial images of the abdomen and pelvis were obtained from the lung bases to the proximal femurs. Images were reviewed in the axial, sagittal, and coronal planes. IV contrast was administered without complication. Automated exposure control was utilized for the study. A dose lowering technique was utilized adhering to the principles of ALARA. Oral contrast was administered. CT DOSE: 1412.07 mGy.cm FINDINGS: Extensive right middle lobe and right lower lobe airspace opacity is again noted. This was shown on prior chest CT and suggests pneumonia/aspiration pneumonitis. There is a trace right pleural effusion. Evaluation of the abdomen and pelvis is compromised given difficulty positioning and artifact from benito gical hardware and intracanalicular devices. Intracanalicular catheters are partially imaged. No pneumatosis, free air or portal venous gas is present. Liver, spleen, adrenal glands and pancreas are unremarkable. Clustered calculi within lower pole of the left kidney are noted. There are no ureteral calculi. There is no hydronephrosis. A cyst within lower pole of the left kidney is present. There is no evidence for a bowel obstruction. Mild gaseous distention of the sigmoid colon is present. Moderate amount of poorly formed stool within the colon and rectum is present. There is no ascites or lymphadenopathy. No fluid collection is identified to suggest an abscess. Major vasculature is grossly patent. IMPRESSION: 1. Technically compromised exam but no acute findings identified within the abdomen or pelvis. 2. Mild gaseous distention of the sigmoid colon without convincing evidence for a bowel obstruction. No bowel wall thickening identified. Moderate amount of poorly formed stool within the colon and rectum. 3. Left-sided nephrolithiasis. No ureteral calculi or hydronephrosis. 4. Pneumonia/aspiration pneumonitis within the visualized right lower lung. Trace right pleural effusion. ACT 112: Negative or not required by law. Electronically signed by: Salazar Turner M.D. 04/02/2022 4:14 PM PG Care Time/CCT Total # of Minutes Spent Total Time Spent with Patient: Total time spent is greater than 50% in coordination of care (as documented) at patient's floor/unit and/or counseling patient: Coding Level of Care Code 34788 Initial Inpt Care Lvl 3 Diagnoses Abdominal pain R10.9
[2022-04-05] MEDS: DOXYCYCLINE HYCLATE 100 MG in DEXTROSE 5% 100 ML IV SCH ×2 (10:36→21:00)
[2022-04-05] MEDS: APIXABAN 5 MG TABLET PO SCH ×2 (10:37→21:04)
[2022-04-05] MEDS: BACLOFEN 10 MG TAB PO SCH ×3 (10:37→21:04)
[2022-04-05] MEDS: FLUTICASONE/VILANTEROL 200/25MCG 14 PUFFS/INHALER INH SCH (10:38)
[2022-04-05] MEDS: POLYETHYLENE (MIRALAX) 17 GM PACK PO SCH (10:38)
[2022-04-05] MEDS: MULTIVITAMIN TAB PO SCH (10:38)
[2022-04-05] MEDS: FAMOTIDINE 20 MG in SYRINGE 3 ML IV SCH (11:46)
[2022-04-05] MEDS: ESCITALOPRAM OXALATE 20 MG TAB PO SCH (11:46)
[2022-04-05] MEDS: cefTRIAXone SODIUM 2,000 MG in DEXTROSE 5% 50 ML IV SCH (11:46)
[2022-04-05] MEDS: CHOLECALCIFEROL 1,000 UNITS 25 MCG TAB PO SCH (11:46)
[2022-04-05] MEDS: SUCRALFATE 1 GM/10 ML UDC PO SCH ×3 (11:47→21:04)
[2022-04-05] MEDS: ACETAMINOPHEN 325 MG TAB PO PRN (12:38)
[2022-04-05] MEDS: ONDANSETRON INJ 2 MG/ML 2 ML VIAL IV PRN (12:39)
[2022-04-05] MEDS ORDERED: PROCHLORPERAZINE 10 MG in SYRINGE 8 ML IV ONE (14:00)
--- NOTE | 2022-04-05 19:12 | Hospitalist Progress Note ---
Date of Service April 05, 2022 Assessment & Plan (1) Pneumonia: Plan: RSV, possible aspiration, possible community-acquired pneumonia - CXR: Mild bibasilar opacities favor atelectasis. Pneumonitis could appear similarly. - Chest CT: Dense airspace opacities throughout the right lung, most pronounced within the right lower lobe compatible with pneumonia. - Concerning right lower quadrant for aspiration pneumonia. Patient is allergic to penicillins therefore will continue treatment with ceftriaxone and doxycycline as he appears to be improving on this. - Appreciate speech consult. Aspiration precautions ordered. - Chest pain appears to be musculoskeletal in nature. We will continue on [place] ordered overnight for this. (2) New onset atrial fibrillation: Plan: - Patient presented with some shortness of breath, weakness, chest pain. He was initially found to be in A. fib RVR with HR in 170s, SBP 80 on presentation. He was given a liter bolus and started on amiodarone drip with bolus. Also received 5 mg of Lopressor, with improvement of BP with latest recorded pressure 108/70. HR in 110s. - Continue on amiodarone intravenous drip per cardiology recommendations - discussed care with Dr. Mckenzie - Anticoagulation with Eliquis 5 mg p.o. twice daily - We will continue to replete magnesium potassium with a goal of magnesium greater than 2 and potassium greater than 4. (3) Abdominal pain: Plan: Suspect gastritis/heartburn, alternatively this may be musculoskeletal This was initially improving but now static. He is currently a poor EGD candidate due to concurrent pneumonia however given persistence of symptoms will consult GI and keep patient NPO after midnight Continue pantoprazole 40 mg IV twice daily and famotidine 20 mg IV daily. Maalox as needed. Will consider adding Carafate if pain continues. Low likelihood doxycycline making this worse given his previous good tolerance to this therefore we will continue. CT abdomen pelvis with IV and oral contrast showed mild gaseous distention of the sigmoid colon without convincing evidence of bowel obstruction and moderate amounts of poorly formed stool in the colon and rectum - he has been having regular bowel movements. (4) Elevated troponin: Plan: - Appears to be demand related (5) Hypertension: Plan: Continue to hold lisinopril and Lasix with currently normal blood pressure. (6) Depression: Plan: Restart Lexapro 20 mg p.o. daily and trazodone 100 mg p.o. at bedtime (7) Hypothyroidism: Plan: - Continue levothyroxine 100 mcg daily. - TSH on admission 1.9. (8) Lumbar stenosis: Plan: - Intrathecal pump, baclofen 10 mg 3 times daily. - Has severe kyphosis/scoliosis, chronic shortness of breath for years. He has home inhalers, using albuterol rescue inhaler 3-5 times a day for months at this point. No wheezing to suggest need for steroids. - Not present previous tobacco use, background without chemical exposures. Plan VTE prophylaxis - Eliquis Diet - heart healthy Disposition -stable for downgrade to [facility] telemetry Admission and Anticipated Discharge Date Admission Date: April 01, 2022 Supervising Physician Co-Signing Physician Notes . Subjective Patient reports feeling much better in general and no longer having the chest pain. No change in his epigastric pain since yesterday and he feels this is severely decreasing his appetite. Cleared by speech with any mild aspiration precautions -no evidence of aspiration seen and patient declined instrumental testing. Review of Systems Review of Systems: Constitutional: no fever/chills, anorexia, night sweats Eyes: No diplopia, no worsening or blurred vision Physical Exam Constitutional: WD/WN, vitals as above Respiratory: b/l air entry fair Cardiovascular: RRR, no murmur, no edema Results & Data Results & Data ([facility]) Vital Signs (Past 12 Hours) Vital Signs Temp Pulse Pulse Resp BP Pulse Ox O2 Del Method 04/05/22 10:30 Room Air 04/05/22 16:56 36.5 C 62 18 126/70 99 Room Air 04/05/22 16:20 04/05/22 15:07 65 04/05/22 12:45 36.6 C 67 14 129/77 96 Room Air 04/05/22 11:29 69 04/05/22 10:44 36.7 C 68 14 145/88 H 95 Room Air 04/05/22 07:57 36.8 C 71 18 119/79 94 Room Air O2 Del Method 04/05/22 10:30 04/05/22 16:56 04/05/22 16:20 Room Air 04/05/22 15:07 04/05/22 12:45 04/05/22 11:29 04/05/22 10:44 04/05/22 07:57 PG Care Time/CCT Total # of Minutes Spent Total Time Spent with Patient: Total time spent is greater than 50% in coordination of care (as documented) at patient's floor/unit and/or counseling patient: Coding Level of Care Code 19019 Subseq Hosp Care Lvl 1 Diagnoses Pneumonia J18.9 New onset atrial fibrillation I48.91 Abdominal pain R10.9 Elevated troponin R77.8 Hypertension I10 Depression F32.9 Hypothyroidism E03.9 Lumbar stenosis M48.061
[2022-04-05] MEDS: HYDROCODONE/ACETAMOPHEN 5/325MG TAB PO PRN (19:28)
[2022-04-05] MEDS: traZODone HCL 100 MG TAB PO SCH (21:04)
[2022-04-06] MEDS: LEVOTHYROXINE SODIUM 100 MCG TABLET PO SCH (06:05)
[2022-04-06 07:00] LABS: Hematocrit (blood only) 33.4 % (40.1-51.0); Hemoglobin 11.5 g/dl (14.0-18.0); Mean Corpuscular Hemoglobin 31.3 pg (25.0-34.0); Mean Corpuscular Hgb Conc 34.4 g/dL (32.0-36.0); Mean Corpuscular Volume 90.8 fL (80.0-100.0); Mean Platelet Volume 9.6 fL (9.4-12.4); Platelet Count 160 K/uL (130-400); RDW Coefficient of Variation 13.3 % (11.5-14.5); RDW Standard Deviation 44.3 fL (36.4-46.3); Red Blood Count 3.68 M/uL (4.63-6.08); White Blood Count 3.72 K/ul (4.8-10.8)
[2022-04-06 07:32] LABS: BUN Creatinine Ratio 13.3 (10-20); Calcium 8.9 mg/dl (8.5-10.1); Creatinine Clr Calc Pharmacy 200.9 ml/min; Est GFR (African American) 137.6 ml/min; Est GFR (Non-African American) 118.8 ml/min; Potassium 3.8 mmol/L (3.5-5.1)
[2022-04-06] MEDS: DOXYCYCLINE HYCLATE 100 MG in DEXTROSE 5% 100 ML IV SCH ×2 (07:40→20:24)
[2022-04-06] MEDS: FAMOTIDINE 20 MG in SYRINGE 3 ML IV SCH (07:41)
[2022-04-06] MEDS: PANTOprazole 40 MG in SYRINGE 0 ML IV SCH ×2 (07:41→21:25)
[2022-04-06] MEDS: SUCRALFATE 1 GM/10 ML UDC PO SCH ×4 (07:42→20:24)
[2022-04-06] MEDS: BACLOFEN 10 MG TAB PO SCH ×3 (07:42→20:24)
[2022-04-06] MEDS: APIXABAN 5 MG TABLET PO SCH ×2 (07:42→20:24)
[2022-04-06] MEDS: FLUTICASONE/VILANTEROL 200/25MCG 14 PUFFS/INHALER INH SCH (07:42)
[2022-04-06] MEDS: AMIODARONE 200 MG TAB PO SCH ×2 (07:43→16:50)
[2022-04-06] MEDS: MULTIVITAMIN TAB PO SCH (07:43)
[2022-04-06] MEDS: ESCITALOPRAM OXALATE 20 MG TAB PO SCH (07:43)
[2022-04-06] MEDS: CHOLECALCIFEROL 1,000 UNITS 25 MCG TAB PO SCH (07:44)
[2022-04-06] MEDS: POLYETHYLENE (MIRALAX) 17 GM PACK PO SCH (07:44)
--- NOTE | 2022-04-06 08:15 | Electrocardiogram Report ---
Test Reason : Blood Pressure : / mmHG Vent. Rate : 068 BPM Atrial Rate : 068 BPM P-R Int : 150 ms QRS Dur : 136 ms QT Int : 470 ms P-R-T Axes : 000 151 170 degrees QTc Int : 499 ms Normal sinus rhythm Right bundle branch block T wave abnormality, consider inferior ischemia Abnormal ECG When compared with ECG of 04-APR-2022 04:43, QRS axis Shifted right Borderline criteria for Lateral infarct are no longer Present Minimal criteria for Inferior infarct are no longer Present T wave inversion now evident in Lateral leads Confirmed by Felix Mckenzie ([id number]) on 04/05/2022 2:07:45 PM Also confirmed by Felix Mckenzie ([id number]), script editor Rodrigo Jordan ([id number]) on 04/06/2022 8:15:00 AM Referred By: REFERRED SELF Confirmed By:Dick Mckenzie
--- NOTE | 2022-04-06 09:43 | Gastroenterology Progress Note ---
Date of Service April 06, 2022 Assessment & Plan (1) Abdominal pain: Plan: Discussed with Dr. English who advised on plan. - continue protonix 40mg IV BID, famotidine 20mg IV once daily. - will continue carafate 1 gm qid. Only had one day of this thus far. Can monit or how patient does with continued use. - would plan for outpatient EGD once recovered from pneumonia. - continue clear liquid diet since tolerating this. - continue miralax 17gm once daily given moderate amount of stool seen in colon/rectum and no bowel movements yesterday. Admission and Anticipated Discharge Date Admission Date: April 01, 2022 Subjective Patient tells me he feels no different today in regards to stomach pain. yesterday he started carafate and tells me vomited this up once. no hematemesis. Has not noticed difference in starting. no further emesis. no nausea, heartburn, dysphagia. He was started on clears and tells me he is tolerating this. no pain with doing clears. no bowel movement yesterday. Physical Exam Constitutional: WD/WN, vitals as above Respiratory: coughing, diminished breath sounds. Cardiovascular: RRR, no murmur, no edema Gastrointestinal (Abdomen): normal bowel sounds. mild epigastric tenderness, no guarding. soft Skin: no rashes, warm and dry Psychiatric: Orientation: alert and oriented x 3 Affect: euthymic affect Results & Data Results & Data ([facility]) Vital Signs (Past 12 Hours) Vital Signs Temp Pulse Pulse Resp BP Pulse Ox O2 Del Method 04/06/22 07:37 36.5 C 68 14 136/66 96 Room Air 04/06/22 07:08 62 04/06/22 02:42 55 L 04/06/22 02:26 36.5 C 60 18 129/70 94 Room Air 04/05/22 22:32 36.5 C 63 18 130/78 98 Room Air PG Care Time/CCT Total # of Minutes Spent Total Time Spent with Patient: Total time spent is greater than 50% in coordination of care (as documented) at patient's floor/unit and/or counseling patient: Coding Level of Care Code 32962 Subseq Hosp Care Lvl 2 Diagnoses Abdominal pain R10.9
[2022-04-06] MEDS: cefTRIAXone SODIUM 2,000 MG in DEXTROSE 5% 50 ML IV SCH (09:53)
--- NOTE | 2022-04-06 12:06 | Electrocardiogram Report ---
Test Reason : Blood Pressure : / mmHG Vent. Rate : 069 BPM Atrial Rate : 069 BPM P-R Int : 160 ms QRS Dur : 138 ms QT Int : 458 ms P-R-T Axes : 040 030 018 degrees QTc Int : 490 ms Normal sinus rhythm Right bundle branch block Abnormal ECG When compared with ECG of 05-APR-2022 07:17, QRS axis Shifted left Confirmed by Felix Mckenzie ([id number]) on 04/06/2022 12:06:14 PM Referred By: REFERRED SELF Confirmed By:Dick Mckenzie
[2022-04-06] MEDS: HYDROCODONE/ACETAMOPHEN 5/325MG TAB PO PRN (14:38)
--- NOTE | 2022-04-06 20:21 | Hospitalist Progress Note ---
Date of Service April 06, 2022 Assessment & Plan (1) Pneumonia: Plan: RSV, possible aspiration, possible community-acquired pneumonia - CXR: Mild bibasilar opacities favor atelectasis. Pneumonitis could appear similarly. - Chest CT: Dense airspace opacities throughout the right lung, most pronounced within the right lower lobe compatible with pneumonia. - Concerning right lower quadrant for aspiration pneumonia. Patient is allergic to penicillins therefore will continue treatment with ceftriaxone and doxycycline as he appears to be improving on this. - Appreciate speech consult. Aspiration precautions ordered. - Chest pain appears to be musculoskeletal in nature. We will continue on [place] ordered overnight for this. (2) New onset atrial fibrillation: Plan: - Patient presented with some shortness of breath, weakness, chest pain. He was initially found to be in A. fib RVR with HR in 170s, SBP 80 on presentation. He was given a liter bolus and started on amiodarone drip with bolus. Also received 5 mg of Lopressor, with improvement of BP with latest recorded pressure 108/70. HR in 110s. - Continue on amiodarone intravenous drip per cardiology recommendations - discussed care with Dr. Mckenzie - Anticoagulation with Eliquis 5 mg p.o. twice daily - We will continue to replete magnesium potassium with a goal of magnesium greater than 2 and potassium greater than 4. (3) Abdominal pain: Plan: Suspect gastritis/heartburn, Patient started on Carafate with slight improvement CT abdomen pelvis with IV and oral contrast showed mild gaseous distention of the sigmoid colon without convincing evidence of bowel obstruction and moderate amounts of poorly formed stool in the colon and rectum - he has been having regular bowel movements. (4) Elevated troponin: Plan: - Appears to be demand related (5) Hypertension: Plan: Continue to hold lisinopril and Lasix with currently normal blood pressure. (6) Depression: Plan: Restart Lexapro 20 mg p.o. daily and trazodone 100 mg p.o. at bedtime (7) Hypothyroidism: Plan: - Continue levothyroxine 100 mcg daily. - TSH on admission 1.9. (8) Lumbar stenosis: Plan: - Intrathecal pump, baclofen 10 mg 3 times daily. - Has severe kyphosis/scoliosis, chronic shortness of breath for years. He has home inhalers, using albuterol rescue inhaler 3-5 times a day for months at this point. No wheezing to suggest need for steroids. - Not present previous tobacco use, background without chemical exposures. Plan VTE prophylaxis - Eliquis Diet - heart healthy Disposition -stable for downgrade to [facility] telemetry Admission and Anticipated Discharge Date Admission Date: April 01, 2022 Subjective Patient has slight improvement in his abdominal discomfort with Carafate started Denies chest pain no further emesis noted Started on clears and patient tolerating . Physical Exam Physical Exam: Head and ENT no thyroid enlargement trachea midline Cardiovascular S1-S2 are normal no S3 Lungs bilateral air entry fair no wheezing Abdomen soft nondistended positive bowel sounds no rebound tenderness Extremity shows trace edema Neurologically no focal deficits Skin shows no rash no cyanosis Results & Data Results & Data ([facility]) Vital Signs (Past 12 Hours) Vital Signs Temp Pulse Pulse Resp BP Pulse Ox O2 Del Method 04/06/22 18:39 36.8 C 66 18 128/72 95 Room Air 04/06/22 17:00 04/06/22 16:50 36.5 C 65 18 163/68 H 96 04/06/22 14:48 55 L 04/06/22 11:56 36.3 C L 63 18 135/80 94 Room Air 04/06/22 09:39 Room Air O2 Del Method 04/06/22 18:39 04/06/22 17:00 Room Air 04/06/22 16:50 04/06/22 14:48 04/06/22 11:56 04/06/22 09:39 PG Care Time/CCT Total # of Minutes Spent Total Time Spent with Patient: Coding Level of Care Code 48852 Subseq Hosp Care Lvl 2 Diagnoses Pneumonia J18.9 New onset atrial fibrillation I48.91 Abdominal pain R10.9 Elevated troponin R77.8 Hypertension I10 Depression F32.9 Hypothyroidism E03.9 Lumbar stenosis M48.061
[2022-04-06] MEDS: traZODone HCL 100 MG TAB PO SCH (20:24)
[2022-04-07] MEDS: LEVOTHYROXINE SODIUM 100 MCG TABLET PO SCH (05:26)
[2022-04-07] MEDS: HYDROCODONE/ACETAMOPHEN 5/325MG TAB PO PRN ×2 (06:07→15:41)
[2022-04-07 07:37] LABS: Hematocrit (blood only) 33.2 % (40.1-51.0); Hemoglobin 11.4 g/dl (14.0-18.0); Mean Corpuscular Hemoglobin 31.1 pg (25.0-34.0); Mean Corpuscular Hgb Conc 34.3 g/dL (32.0-36.0); Mean Corpuscular Volume 90.5 fL (80.0-100.0); Mean Platelet Volume 9.5 fL (9.4-12.4); Platelet Count 181 K/uL (130-400); RDW Coefficient of Variation 13.3 % (11.5-14.5); RDW Standard Deviation 44.3 fL (36.4-46.3); Red Blood Count 3.67 M/uL (4.63-6.08); White Blood Count 3.53 K/ul (4.8-10.8)
[2022-04-07 07:56] LABS: BUN Creatinine Ratio 8.5 (10-20); Calcium 8.9 mg/dl (8.5-10.1); Est GFR (African American) 123.1 ml/min; Est GFR (Non-African American) 106.2 ml/min; Potassium 3.8 mmol/L (3.5-5.1)
[2022-04-07] MEDS: ESCITALOPRAM OXALATE 20 MG TAB PO SCH (08:58)
[2022-04-07] MEDS: APIXABAN 5 MG TABLET PO SCH ×2 (08:58→20:10)
[2022-04-07] MEDS: CHOLECALCIFEROL 1,000 UNITS 25 MCG TAB PO SCH (08:59)
[2022-04-07] MEDS: BACLOFEN 10 MG TAB PO SCH ×3 (08:59→20:09)
[2022-04-07] MEDS: MULTIVITAMIN TAB PO SCH (08:59)
[2022-04-07] MEDS: FLUTICASONE/VILANTEROL 200/25MCG 14 PUFFS/INHALER INH SCH (08:59)
[2022-04-07] MEDS: AMIODARONE 200 MG TAB PO SCH ×2 (08:59→16:39)
[2022-04-07] MEDS: PANTOprazole 40 MG in SYRINGE 0 ML IV SCH ×2 (09:00→20:11)
[2022-04-07] MEDS: SUCRALFATE 1 GM/10 ML UDC PO SCH ×4 (09:00→20:09)
[2022-04-07] MEDS: cefTRIAXone SODIUM 2,000 MG in DEXTROSE 5% 50 ML IV SCH (09:15)
[2022-04-07] MEDS: POLYETHYLENE (MIRALAX) 17 GM PACK PO SCH (09:15)
[2022-04-07] MEDS: FAMOTIDINE 20 MG in SYRINGE 3 ML IV SCH (09:15)
[2022-04-07] MEDS: DOXYCYCLINE HYCLATE 100 MG in DEXTROSE 5% 100 ML IV SCH ×2 (09:15→20:05)
--- NOTE | 2022-04-07 10:59 | Electrocardiogram Report ---
Test Reason : Blood Pressure : / mmHG Vent. Rate : 069 BPM Atrial Rate : 069 BPM P-R Int : 160 ms QRS Dur : 140 ms QT Int : 496 ms P-R-T Axes : 044 026 019 degrees QTc Int : 531 ms Normal sinus rhythm Right bundle branch block Lateral infarct (cited on or before 07-APR-2022) Abnormal ECG When compared with ECG of 06-APR-2022 06:01, No significant change was found Confirmed by Felix Mckenzie ([id number] on 04/07/2022 10:59:47 AM Referred By: REFERRED SELF Confirmed By:Dick Mckenzie
[2022-04-07] MEDS: ALUMINUM/MAGNESIUM SUSP 30 ML UDC PO PRN (19:04)
--- NOTE | 2022-04-07 19:59 | Hospitalist Progress Note ---
Date of Service April 07, 2022 Assessment & Plan (1) Pneumonia: Plan: RSV, possible aspiration, possible community-acquired pneumonia - CXR: Mild bibasilar opacities favor atelectasis. Pneumonitis could appear similarly. - Chest CT: Dense airspace opacities throughout the right lung, most pronounced within the right lower lobe compatible with pneumonia. - Concerning right lower quadrant for aspiration pneumonia. Patient is allergic to penicillins therefore will continue treatment with ceftriaxone and doxycycline as he appears to be improving on this. - Appreciate speech consult. Aspiration precautions ordered. - Chest pain appears to be musculoskeletal in nature. We will continue on [place] ordered overnight for this. (2) New onset atrial fibrillation: Plan: - Patient presented with some shortness of breath, weakness, chest pain. He was initially found to be in A. fib RVR with HR in 170s, SBP 80 on presentation. He was given a liter bolus and started on amiodarone drip with bolus. Also received 5 mg of Lopressor, with improvement of BP with latest recorded pressure 108/70. HR in 110s. - Continue on amiodarone intravenous drip per cardiology recommendations - discussed care with Dr. Mckenzie - Anticoagulation with Eliquis 5 mg p.o. twice daily - We will continue to replete magnesium potassium with a goal of magnesium greater than 2 and potassium greater than 4. (3) Abdominal pain: Plan: Suspect gastritis/heartburn, Patient started on Carafate with slight improvement CT abdomen pelvis with IV and oral contrast showed mild gaseous distention of the sigmoid colon without convincing evidence of bowel obstruction and moderate amounts of poorly formed stool in the colon and rectum - he has been having regular bowel movements. (4) Elevated troponin: Plan: - Appears to be demand related (5) Hypertension: Plan: Continue to hold lisinopril and Lasix with currently normal blood pressure. (6) Depression: Plan: Restart Lexapro 20 mg p.o. daily and trazodone 100 mg p.o. at bedtime (7) Hypothyroidism: Plan: - Continue levothyroxine 100 mcg daily. - TSH on admission 1.9. (8) Lumbar stenosis: Plan: - Intrathecal pump, baclofen 10 mg 3 times daily. - Has severe kyphosis/scoliosis, chronic shortness of breath for years. He has home inhalers, using albuterol rescue inhaler 3-5 times a day for months at this point. No wheezing to suggest need for steroids. - Not present previous tobacco use, background without chemical exposures. Plan VTE prophylaxis - Eliquis Diet - heart healthy Disposition -stable for downgrade to [facility] telemetry Admission and Anticipated Discharge Date Admission Date: April 01, 2022 Subjective Patient has slight improvement in his abdominal discomfort with Carafate started Denies chest pain no further emesis noted Started on clears and patient tolerating . Physical Exam Physical Exam: Head and ENT no thyroid enlargement trachea midline Cardiovascular S1-S2 are normal no S3 Lungs bilateral air entry fair no wheezing Abdomen soft nondistended positive bowel sounds no rebound tenderness Extremity shows trace edema Neurologically no focal deficits Skin shows no rash no cyanosis Constitutional: WD/WN, vitals as above Cardiovascular: RRR, no murmur, no edema Results & Data Results & Data ([facility]) Vital Signs (Past 12 Hours) Vital Signs Temp Pulse Pulse Resp BP Pulse Ox O2 Del Method 04/07/22 15:27 36.6 C 61 20 136/75 95 Room Air 04/07/22 14:40 59 L 04/07/22 11:49 36.4 C L 70 18 144/73 H 96 Room Air 04/07/22 11:41 Room Air 04/07/22 11:40 67 PG Care Time/CCT Total # of Minutes Spent Total Time Spent with Patient: Total time spent is greater than 50% in coordination of care (as documented) at patient's floor/unit and/or counseling patient: Coding Level of Care Code 02532 Subseq Hosp Care Lvl 2 Diagnoses Pneumonia J18.9 New onset atrial fibrillation I48.91 Abdominal pain R10.9 Elevated troponin R77.8 Hypertension I10 Depression F32.9 Hypothyroidism E03.9 Lumbar stenosis M48.061
[2022-04-07] MEDS: traZODone HCL 100 MG TAB PO SCH (20:10)
--- NOTE | 2022-04-08 04:02 | Communication Note ---
Date of Service: April 08, 2022 Notified by nursing of firm, reddened, warm to touch area at left AC, prior IV site. Will add order for No BP checks or lab draws in that extremity. Deferring exam to dayshift.
[2022-04-08] MEDS: LEVOTHYROXINE SODIUM 100 MCG TABLET PO SCH (06:00)
[2022-04-08 07:45] LABS: Hemoglobin 12.4 g/dl (14.0-18.0); Mean Corpuscular Hemoglobin 30.6 pg (25.0-34.0); Mean Corpuscular Hgb Conc 34.4 g/dL (32.0-36.0); Mean Corpuscular Volume 88.9 fL (80.0-100.0); Mean Platelet Volume 9.7 fL (9.4-12.4); Platelet Count 215 K/uL (130-400); RDW Coefficient of Variation 13.2 % (11.5-14.5); Red Blood Count 4.05 M/uL (4.63-6.08)
[2022-04-08] MEDS: FAMOTIDINE 20 MG in SYRINGE 3 ML IV SCH (08:04)
[2022-04-08] MEDS: PANTOprazole 40 MG in SYRINGE 0 ML IV SCH ×2 (08:04→20:07)
[2022-04-08] MEDS: AMIODARONE 200 MG TAB PO SCH ×2 (08:05→15:59)
[2022-04-08] MEDS: FLUTICASONE/VILANTEROL 200/25MCG 14 PUFFS/INHALER INH SCH (08:05)
[2022-04-08] MEDS: MULTIVITAMIN TAB PO SCH (08:05)
[2022-04-08] MEDS: APIXABAN 5 MG TABLET PO SCH ×2 (08:06→20:07)
[2022-04-08] MEDS: DOXYCYCLINE HYCLATE 100 MG in DEXTROSE 5% 100 ML IV SCH (08:06)
[2022-04-08] MEDS: cefTRIAXone SODIUM 2,000 MG in DEXTROSE 5% 50 ML IV SCH (08:06)
[2022-04-08] MEDS: ESCITALOPRAM OXALATE 20 MG TAB PO SCH (08:07)
[2022-04-08] MEDS: CHOLECALCIFEROL 1,000 UNITS 25 MCG TAB PO SCH (08:07)
[2022-04-08] MEDS: SUCRALFATE 1 GM/10 ML UDC PO SCH ×4 (08:09→20:06)
[2022-04-08] MEDS: BACLOFEN 10 MG TAB PO SCH ×3 (08:09→20:12)
[2022-04-08] MEDS: POLYETHYLENE (MIRALAX) 17 GM PACK PO SCH (08:09)
[2022-04-08 08:47] LABS: BUN Creatinine Ratio 8.3 (10-20); Calcium 8.8 mg/dl (8.5-10.1); Creatinine Clr Calc Pharmacy 185.8 ml/min; Est GFR (Non-African American) 115.6 ml/min; Potassium 3.8 mmol/L (3.5-5.1)
[2022-04-08] MEDS: HYDROCODONE/ACETAMOPHEN 5/325MG TAB PO PRN (11:44)
--- NOTE | 2022-04-08 15:05 | Hospitalist Progress Note ---
Date of Service April 08, 2022 Assessment & Plan (1) Pneumonia: Plan: RSV, possible aspiration, possible community-acquired pneumonia - CXR: Mild bibasilar opacities favor atelectasis. Pneumonitis could appear similarly. - Chest CT: Dense airspace opacities throughout the right lung, most pronounced within the right lower lobe compatible with pneumonia. - Concerning right lower quadrant for aspiration pneumonia. Patient is allergic to penicillins therefore will continue treatment with ceftriaxone and doxycycline as he appears to be improving on this. - Appreciate speech consult. Aspiration precautions ordered. - Chest pain appears to be musculoskeletal in nature. We will continue on [place] ordered overnight for this. (2) New onset atrial fibrillation: Plan: - Patient presented with some shortness of breath, weakness, chest pain. He was initially found to be in A. fib RVR with HR in 170s, SBP 80 on presentation. He was given a liter bolus and started on amiodarone drip with bolus. Also received 5 mg of Lopressor, with improvement of BP with latest recorded pressure 108/70. HR in 110s. - Continue on amiodarone intravenous drip per cardiology recommendations - discussed care with Dr. Mckenzie - Anticoagulation with Eliquis 5 mg p.o. twice daily - We will continue to replete magnesium potassium with a goal of magnesium greater than 2 and potassium greater than 4. (3) Abdominal pain: Plan: Suspect gastritis/heartburn, Patient started on Carafate with slight improvement CT abdomen pelvis with IV and oral contrast showed mild gaseous distention of the sigmoid colon without convincing evidence of bowel obstruction and moderate amounts of poorly formed stool in the colon and rectum - he has been having regular bowel movements. (4) Elevated troponin: Plan: - Appears to be demand related (5) Hypertension: Plan: Continue to hold lisinopril and Lasix with currently normal blood pressure. (6) Depression: Plan: Restart Lexapro 20 mg p.o. daily and trazodone 100 mg p.o. at bedtime (7) Hypothyroidism: Plan: - Continue levothyroxine 100 mcg daily. - TSH on admission 1.9. (8) Lumbar stenosis: Plan: - Intrathecal pump, baclofen 10 mg 3 times daily. - Has severe kyphosis/scoliosis, chronic shortness of breath for years. He has home inhalers, using albuterol rescue inhaler 3-5 times a day for months at this point. No wheezing to suggest need for steroids. - Not present previous tobacco use, background without chemical exposures. Plan VTE prophylaxis - Eliquis Diet - heart healthy Disposition -stable for downgrade to [facility] telemetry Admission and Anticipated Discharge Date Admission Date: April 01, 2022 Subjective Patient has slight improvement in his abdominal discomfort with Carafate started Denies chest pain no further emesis noted Started on clears and patient tolerating Reports of his shortness of breath slightly improved . Physical Exam Physical Exam: Head and ENT no thyroid enlargement trachea midline Cardiovascular S1-S2 are normal no S3 Lungs bilateral air entry fair no wheezing Abdomen soft nondistended positive bowel sounds no rebound tenderness Extremity shows trace edema Neurologically no focal deficits Skin shows erythema adj to IV site Results & Data Results & Data ([facility]) Vital Signs (Past 12 Hours) Vital Signs Temp Pulse Pulse Resp BP BP Pulse Ox 04/08/22 07:46 36.6 C 60 20 150/85 H 93 04/08/22 07:07 62 04/08/22 03:36 36.7 C 62 20 137/71 94 O2 Del Method 04/08/22 07:46 Room Air 04/08/22 07:07 04/08/22 03:36 Room Air PG Care Time/CCT Total # of Minutes Spent Total Time Spent with Patient: Total time spent is greater than 50% in coordination of care (as documented) at patient's floor/unit and/or counseling patient: Coding Level of Care Code 63234 Subseq Hosp Care Lvl 2 Diagnoses Pneumonia J18.9 New onset atrial fibrillation I48.91 Abdominal pain R10.9 Elevated troponin R77.8 Hypertension I10 Depression F32.9 Hypothyroidism E03.9 Lumbar stenosis M48.061
[2022-04-08] MEDS: traZODone HCL 100 MG TAB PO SCH (20:07)
[2022-04-09] MEDS: LEVOTHYROXINE SODIUM 100 MCG TABLET PO SCH (05:37)
[2022-04-09] MEDS: PANTOprazole 40 MG in SYRINGE 0 ML IV SCH ×2 (08:19→20:25)
[2022-04-09] MEDS: APIXABAN 5 MG TABLET PO SCH ×2 (08:19→20:24)
[2022-04-09] MEDS: AMIODARONE 200 MG TAB PO SCH ×2 (08:19→16:27)
[2022-04-09] MEDS: BACLOFEN 10 MG TAB PO SCH ×3 (08:20→20:24)
[2022-04-09] MEDS: MULTIVITAMIN TAB PO SCH (08:20)
[2022-04-09] MEDS: ESCITALOPRAM OXALATE 20 MG TAB PO SCH (08:21)
[2022-04-09] MEDS: FLUTICASONE/VILANTEROL 200/25MCG 14 PUFFS/INHALER INH SCH (08:21)
[2022-04-09] MEDS: CHOLECALCIFEROL 1,000 UNITS 25 MCG TAB PO SCH (08:21)
[2022-04-09 09:06] LABS: Hematocrit (blood only) 37.1 % (40.1-51.0); Hemoglobin 12.8 g/dl (14.0-18.0); Mean Corpuscular Hemoglobin 31.5 pg (25.0-34.0); Mean Corpuscular Hgb Conc 34.5 g/dL (32.0-36.0); Mean Corpuscular Volume 91.4 fL (80.0-100.0); Mean Platelet Volume 9.3 fL (9.4-12.4); Platelet Count 225 K/uL (130-400); RDW Coefficient of Variation 13.6 % (11.5-14.5); RDW Standard Deviation 45.8 fL (36.4-46.3); Red Blood Count 4.06 M/uL (4.63-6.08)
[2022-04-09 09:32] LABS: BUN Creatinine Ratio 8.3 (10-20); Calcium 9.2 mg/dl (8.5-10.1); Creatinine Clr Calc Pharmacy 148.1 ml/min; Est GFR (African American) 122.3 ml/min; Est GFR (Non-African American) 105.5 ml/min; Potassium 4.1 mmol/L (3.5-5.1)
[2022-04-09] MEDS: HYDROCODONE/ACETAMOPHEN 5/325MG TAB PO PRN (10:20)
[2022-04-09] MEDS: POLYETHYLENE (MIRALAX) 17 GM PACK PO SCH (10:21)
[2022-04-09] MEDS: SUCRALFATE 1 GM/10 ML UDC PO SCH ×4 (10:27→20:24)
[2022-04-09] MEDS ORDERED: Nursing to Pharmacy Communication SCH (10:30)
[2022-04-09] MEDS: FAMOTIDINE 20 MG in SYRINGE 3 ML IV SCH (10:59)
[2022-04-09] MEDS: traZODone HCL 100 MG TAB PO SCH (20:24)
--- NOTE | 2022-04-09 20:24 | Hospitalist Progress Note ---
Date of Service April 09, 2022 Assessment & Plan (1) Pneumonia: Plan: RSV, possible aspiration, possible community-acquired pneumonia - CXR: Mild bibasilar opacities favor atelectasis. Pneumonitis could appear similarly. - Chest CT: Dense airspace opacities throughout the right lung, most pronounced within the right lower lobe compatible with pneumonia. - Concerning right lower quadrant for aspiration pneumonia. Patient is allergic to penicillins therefore will continue treatment with ceftriaxone and doxycycline as he appears to be improving on this. - Appreciate speech consult. Aspiration precautions ordered. Chest pain which appears to be musculoskeletal has improved (2) New onset atrial fibrillation: Plan: - Patient presented with some shortness of breath, weakness, chest pain. He was initially found to be in A. fib RVR with HR in 170s, SBP 80 on presentation. He was given a liter bolus and started on amiodarone drip with bolus. Also received 5 mg of Lopressor, with improvement of BP with latest recorded pressure 108/70 upon admission Heart rate has improved - Anticoagulation with Eliquis 5 mg p.o. twice daily (3) Abdominal pain: Plan: Suspect gastritis/heartburn, Patient started on Carafate with slight improvement CT abdomen pelvis with IV and oral contrast showed mild gaseous distention of th e sigmoid colon without convincing evidence of bowel obstruction and moderate amounts of poorly formed stool in the colon and rectum - he has been having regular bowel movements. Continue Carafate (4) Elevated troponin: Plan: - Appears to be demand related No evidence of ongoing ischemia (5) Hypertension: Plan: Continue to hold lisinopril and Lasix with currently normal blood pressure. (6) Depression: Plan: Restart Lexapro 20 mg p.o. daily and trazodone 100 mg p.o. at bedtime (7) Hypothyroidism: Plan: - Continue levothyroxine 100 mcg daily. - TSH on admission 1.9. (8) Lumbar stenosis: Plan: - Intrathecal pump, baclofen 10 mg 3 times daily. - Has severe kyphosis/scoliosis, chronic shortness of breath for years. He has home inhalers, using albuterol rescue inhaler 3-5 times a day for months at this point. No wheezing to suggest need for steroids. - Not present previous tobacco use, background without chemical exposures. Admission and Anticipated Discharge Date Admission Date: April 01, 2022 Subjective Patient has improvement in his reflux symptoms with Carafate Patient has left upper extremity possible phlebitis improving Denies chest pain no further emesis noted Reports of his shortness of breath improving progressively with antibiotics . Physical Exam Physical Exam: Head and ENT no thyroid enlargement Cardiovascular S1-S2 are normal no S3 Lungs bilateral air entry slightly decreased at bases with scattered rhonchi Abdomen soft nondistended positive bowel sounds no rebound tenderness Extremity shows trace edema Neurologically no focal deficits Skin left upper extremity shows erythema likely phlebitis improving Results & Data Results & Data ([facility]) Vital Signs (Past 12 Hours) Vital Signs Temp Pulse Pulse Resp BP BP Pulse Ox 04/09/22 18:40 36.7 C 66 18 126/76 99 04/09/22 14:10 61 04/09/22 15:40 36.6 C 55 L 18 157/85 H 99 04/09/22 11:27 36.6 C 59 L 18 137/77 96 O2 Del Method 04/09/22 18:40 Room Air 04/09/22 14:10 04/09/22 15:40 Room Air 04/09/22 11:27 Room Air PG Care Time/CCT Total # of Minutes Spent Total Time Spent with Patient: Total time spent is greater than 50% in coordination of care (as documented) at patient's floor/unit and/or counseling patient: Coding Level of Care Code 39486 Subseq Hosp Care Lvl 2 Diagnoses Pneumonia J18.9 New onset atrial fibrillation I48.91 Abdominal pain R10.9 Elevated troponin R77.8 Hypertension I10 Depression F32.9 Hypothyroidism E03.9 Lumbar stenosis M48.061
[2022-04-10] MEDS: LEVOTHYROXINE SODIUM 100 MCG TABLET PO SCH (05:34)
[2022-04-10 08:50] LABS: Hematocrit (blood only) 36.6 % (40.1-51.0); Hemoglobin 12.4 g/dl (14.0-18.0); Mean Corpuscular Hgb Conc 33.9 g/dL (32.0-36.0); Mean Corpuscular Volume 91.5 fL (80.0-100.0); Mean Platelet Volume 9.1 fL (9.4-12.4); Platelet Count 229 K/uL (130-400); RDW Coefficient of Variation 13.5 % (11.5-14.5); RDW Standard Deviation 45.4 fL (36.4-46.3); White Blood Count 2.48 K/ul (4.8-10.8)
[2022-04-10] MEDS: AMIODARONE 200 MG TAB PO SCH ×2 (09:05→16:45)
[2022-04-10] MEDS: PANTOprazole 40 MG in SYRINGE 0 ML IV SCH ×2 (09:05→21:31)
[2022-04-10] MEDS: SUCRALFATE 1 GM/10 ML UDC PO SCH ×2 (09:06→11:19)
[2022-04-10] MEDS: APIXABAN 5 MG TABLET PO SCH ×2 (09:06→21:34)
[2022-04-10] MEDS: ESCITALOPRAM OXALATE 20 MG TAB PO SCH (09:06)
[2022-04-10] MEDS: MULTIVITAMIN TAB PO SCH (09:06)
[2022-04-10] MEDS: CHOLECALCIFEROL 1,000 UNITS 25 MCG TAB PO SCH (09:06)
[2022-04-10] MEDS: FLUTICASONE/VILANTEROL 200/25MCG 14 PUFFS/INHALER INH SCH (09:07)
[2022-04-10 09:11] LABS: BUN Creatinine Ratio 8.5 (10-20); Calcium 8.9 mg/dl (8.5-10.1); Creatinine Clr Calc Pharmacy 150.6 ml/min; Est GFR (African American) 123.1 ml/min; Est GFR (Non-African American) 106.2 ml/min; Potassium 4.1 mmol/L (3.5-5.1)
[2022-04-10] MEDS: BACLOFEN 10 MG TAB PO SCH ×3 (09:12→21:37)
[2022-04-10] MEDS: FAMOTIDINE 20 MG in SYRINGE 3 ML IV SCH (09:12)
[2022-04-10] MEDS: POLYETHYLENE (MIRALAX) 17 GM PACK PO SCH ×3 (09:12→21:32)
[2022-04-10] MEDS: DOCUSATE SODIUM/SENNA 50/8.6MG TAB PO SCH ×2 (11:19→21:32)
[2022-04-10] MEDS: HYDROCODONE/ACETAMOPHEN 5/325MG TAB PO PRN (12:11)
--- NOTE | 2022-04-10 15:36 | Hospitalist Progress Note ---
Date of Service April 10, 2022 Assessment & Plan (1) Pneumonia: Plan: Presented with symptoms of pneumonia and tested positive for RSV CT angiogram chest suggests aspiration pneumonia - CXR: Mild bibasilar opacities favor atelectasis. Pneumonitis could appear similarly. - Chest CT: Dense airspace opacities throughout the right lung, most pronounced within the right lower lobe compatible with pneumonia. -He has now completed a course of ceftriaxone and doxycycline x7 days -Sputum culture and blood cultures no growth - Appreciate speech consult. Aspiration precautions ordered. Greatly improved, on room air, no cough and lungs sound clear Follow chest x-ray in the morning and then in 4 to 6 weeks as an outpatient to ensure resolution of infiltrate (2) New onset atrial fibrillation: Plan: - Patient presented with some shortness of breath, weakness, chest pain. He was initially found to be in A. fib RVR with HR in 170s, SBP 80 on presentation. He was given a liter bolus and started on amiodarone drip with bolus. Also received 5 mg of Lopressor, with improvement of BP with latest recorded pressure 108/70 upon admission He then spontaneously converted to sinus rhythm Appreciate cardiology consultation -Continue amiodarone 400 Mg p.o. twice daily x10-day course and then convert to 200 mg daily on 04/13 -Continue anticoagulation with Eliquis 5 mg p.o. twice daily-asked nurse navigator to infante this out-it needs to be called into pharmacy in advance-we will do this today -No AV kayla blocking agents used as he had significant hypotension in the setting of rapid atrial fibrillation -Follow BMP, magnesium and keep electrolytes replete -Needs follow-up with cardiology as an outpatient (3) Ileus: Plan: Noted to have colonic distention and constipation on CT abdomen/pelvis on admission He then apparently continued to complain of mostly mid and lower abdominal pain off and on throughout his hospitalization He had 1 bowel movement near the beginning of the hospital stay and then only a few small "conchita" of stool on 04/07 noted With development of severe lower abdominal pain on 04/10 after receiving senna/docusate earlier in the day KUB with colonic ileus Almost certainly related to chronic opioid use with hydrocodone as well as his intrathecal pain pump -Gave bisacodyl 10 mg VT x1 stat and had to moderate sized bowel movements and significant relief of his abdominal pain afterwards -Continue senna/docusate 1 tab p.o. twice daily started on 04/10 -Increased MiraLAX to 17 g p.o. 3 times daily -Simethicone as needed for gas pains -Made NPO for second half a day on 04/10, but after having to moderate bowel movements, will advance diet back to clear liquids for 04/11 -Advance diet as tolerated as long as continues to move bowels -Follow KUB again in the morning -Could consider Relistor -Discussed case with GI on 04/10 who will see the patient again in consultation on 04/11, but most likely will not need a colonoscopy during inpatient stay (4) Abdominal pain: Plan: Had indigestion which was suspected to be gastritis Also has lower abdominal pain as above secondary to colonic ileus Patient started on Carafate with slight improvement Now has resolution of indigestion with being on IV Protonix and IV Pepcid as well as Carafate CT abdomen pelvis with IV and oral contrast showed mild gaseous distention of the sigmoid colon without convincing evidence of bowel obstruction and moderate amounts of poorly formed stool in the colon and rectum -DC Carafate -DC IV Pepcid and Protonix and convert to Protonix 40 Mg p.o. once daily only -Give 1 dose of IV morphine for severe abdominal pain on 04/10 (5) Elevated troponin: Plan: - Appears to be demand related No evidence of ongoing ischemia echocardiogram without any wall motion abnormalities and with preserved EF (6) Hypertension: Plan: Continue to hold lisinopril and Lasix with currently normal blood pressure. (7) Depression: Plan: Continue Lexapro 20 mg p.o. daily and trazodone 100 mg p.o. at bedtime (8) Hypothyroidism: Plan: - Continue levothyroxine 100 mcg daily. - TSH on admission 1.89 (9) Lumbar stenosis: Plan: - Intrathecal pump, baclofen 10 mg 3 times daily. - Has severe kyphosis/scoliosis, chronic shortness of breath for years. He has home inhalers, using albuterol rescue inhaler 3-5 times a day for months at this point. No wheezing to suggest need for steroids. - Not present previous tobacco use, background without chemical exposures. (10) Thoracic aortic aneurysm (TAA): Plan: Noted on CT chest to be 4.5 cm Follow-up as an outpatient Needs good blood pressure control Plan DVT prophylaxis-Eliquis. Of note, he has a left AC fossa superficial thrombophlebitis-should use warm compresses on this as discussed with nursing Disposition-continued stay on medical-telemetry, but stable for discharge after colonic ileus resolved and tolerating regular diet PT/OT consults placed Admission and Anticipated Discharge Date Admission Date: April 01, 2022 Subjective Patient started on laxatives this morning due to severe constipation and in the early afternoon, he began having severe lower abdominal pain. He reports this pain is an 8 out of 10 in severity and feels similar to the abdominal pain has been having intermittently throughout his hospital stay but this is the worst. He is passing gas, denies nausea or vomiting. Denies any further indigestion or heartburn. No cough or chest pain, no shortness of breath. He is on room air. Telemetry with normal sinus rhythm and sinus bradycardia with rates in the 50s to 60s Review of Systems Review of Systems: All systems reviewed & are unremarkable except as noted in HPI & below Physical Exam Constitutional: WD/WN, vitals as above Eyes: + anicteric sclerae Neck: trachea midline, no thyromegaly Respiratory: normal respiratory effort, lungs clear to auscultation Cardiovascular: RRR, no murmur, no edema Chest (Breasts): Chest: normal inspection of chest Gastrointestinal (Abdomen): Inspection/Auscultation: abdomen normal to inspection, + abdomen distended (Mild) and normal bowel sounds Percussion/Palpation: + abdomen tender (+TTP lower abdomen L>R without guarding or rebound) and abdomen soft Musculoskeletal: Extremities: + extremities abnormal to inspection (Left AC fossa and biceps with tender erythematous cord palpable), no cyanosis and no clubbing Skin: no rashes, warm and dry Neurologic: moves all extremities and awake; no focal motor deficits Psychiatric: A+Ox3, euthymic affect Lymphatic: no lymphedema Results & Data Results & Data ([facility]) Vital Signs (Past 12 Hours) Vital Signs Temp Pulse Resp BP BP Pulse Ox O2 Del Method 04/10/22 12:00 37 C 65 18 133/80 96 04/10/22 07:31 36.7 C 54 L 18 157/86 H 96 Room Air 04/10/22 03:39 36.5 C 55 L 18 128/70 97 Room Air Laboratory Results 04/10/22 04/10/22 Range/Units 08:08 08:08 WBC 2.48 L (4.8-10.8) K/ul RBC 4.00 L (4.63-6.08) M/uL Hgb 12.4 L (14.0-18.0) g/dl Hct 36.6 L (40.1-51.0) % MCV 91.5 (80.0-100.0) fL MCH 31.0 (25.0-34.0) pg MCHC 33.9 (32.0-36.0) g/dL RDW Std Deviation 45.4 (36.4-46.3) fL RDW Coeff of Kj 13.5 (11.5-14.5) % Plt Count 229 (130-400) K/uL MPV 9.1 L (9.4-12.4) fL Sodium 140 (136-145) mmol/L Potassium 4.1 (3.5-5.1) mmol/L Chloride 106 (98-107) mmol/L Carbon Dioxide 30 (21-32) mmol/L Anion Gap 4 (3-11) BUN 5 L (6-23) mg/dl Creatinine 0.59 L (0.6-1.4) mg/dl Est Cr Clr Drug Dosing 150.6 ml/min Est GFR ( Amer) 123.1 ml/min Est GFR (Non-Af Amer) 106.2 ml/min BUN/Creatinine Ratio 8.5 L (10-20) Glucose 94 (70-99(Fasting)) mg/dl Calcium 8.9 (8.5-10.1) mg/dl Diagnostic Findings KUB image personally reviewed by me and agree with the following report: KUB X-Ray 04/10/22 15:01 KUB CLINICAL HISTORY: Abdominal pain. COMPARISON STUDY: CT of the abdomen and pelvis April 02, 2022. FINDINGS: Intracanalicular catheter is partially imaged. There are postoperative findings within the lumbosacral spine. Levoscoliosis of the lumbar spine is noted. Gaseous distention of the colon is similar to prior CT. There is no convincing evidence for a bowel obstruction. Small bilateral pleural effusions are noted. Sensitivity for detection of free air is diminished on this supine exam but there is no evidence for free air. IMPRESSION: Gaseous distention of the colon, similar to prior exam. This could reflect a colonic ileus. No convincing evidence for a bowel obstruction. ACT 112: Negative or not required by law. Electronically signed by: Salazar Turner M.D. 04/10/2022 4:00 PM PG Care Time/CCT Total # of Minutes Spent Total Time Spent with Patient: Total time spent is greater than 50% in coordination of care (as documented) at patient's floor/unit and/or counseling patient: Coding Level of Care Code 36478 Subseq Hosp Care Lvl 3 Diagnoses Pneumonia J18.9 New onset atrial fibrillation I48.91 Ileus K56.7 Abdominal pain R10.9 Elevated troponin R77.8 Hypertension I10 Depression F32.9 Hypothyroidism E03.9 Lumbar stenosis M48.061 Thoracic aortic aneurysm (TAA) I71.20
--- NOTE | 2022-04-10 16:03 | XRay Report ---
KUB CLINICAL HISTORY: Abdominal pain. COMPARISON STUDY: CT of the abdomen and pelvis April 02, 2022. FINDINGS: Intracanalicular catheter is partially imaged. There are postoperative findings within the lumbosacral spine. Levoscoliosis of the lumbar spine is noted. Gaseous distention of the colon is sim ilar to prior CT. There is no convincing evidence for a bowel obstruction. Small bilateral pleural ef fusions are noted. Sensitivity for detection of free air is diminished on this supine exam but there is no evidence for free air. IMPRESSION: Gaseous distention of the colon, similar to prior exam. This could reflect a colonic ile us. No convincing evidence for a bowel obstruction. ACT 112: Negative or not required by law. Electronically signed by: Salazar Turner M.D. 04/10/2022 4:00 PM
[2022-04-10] MEDS ORDERED: bisacodyL 10 MG SUPP PR STA (16:17)
[2022-04-10] MEDS: MoRPHine SULFATE 2 MG/ML CARP IV PRN (16:44)
[2022-04-10] MEDS ORDERED: SIMETHICONE 80 MG CHEW PO PRN (21:18)
[2022-04-10] MEDS: traZODone HCL 100 MG TAB PO SCH (21:36)
[2022-04-11] MEDS: LEVOTHYROXINE SODIUM 100 MCG TABLET PO SCH (05:59)
[2022-04-11 06:59] LABS: Hematocrit (blood only) 33.7 % (40.1-51.0); Hemoglobin 11.4 g/dl (14.0-18.0); Mean Corpuscular Hemoglobin 30.9 pg (25.0-34.0); Mean Corpuscular Hgb Conc 33.8 g/dL (32.0-36.0); Mean Corpuscular Volume 91.3 fL (80.0-100.0); Mean Platelet Volume 10.3 fL (9.4-12.4); Platelet Count 223 K/uL (130-400); RDW Coefficient of Variation 13.8 % (11.5-14.5); RDW Standard Deviation 44.9 fL (36.4-46.3); Red Blood Count 3.69 M/uL (4.63-6.08)
[2022-04-11] MEDS: DOCUSATE SODIUM/SENNA 50/8.6MG TAB PO SCH ×2 (07:41→20:13)
[2022-04-11] MEDS: MULTIVITAMIN TAB PO SCH (07:41)
[2022-04-11] MEDS: AMIODARONE 200 MG TAB PO SCH ×2 (07:42→16:29)
[2022-04-11] MEDS: PANTOprazole 40 MG TAB PO SCH (07:42)
[2022-04-11] MEDS: CHOLECALCIFEROL 1,000 UNITS 25 MCG TAB PO SCH (07:42)
[2022-04-11] MEDS: POLYETHYLENE (MIRALAX) 17 GM PACK PO SCH ×3 (07:42→20:13)
[2022-04-11] MEDS: FLUTICASONE/VILANTEROL 200/25MCG 14 PUFFS/INHALER INH SCH (07:43)
[2022-04-11] MEDS: APIXABAN 5 MG TABLET PO SCH ×2 (07:43→20:13)
[2022-04-11] MEDS: ESCITALOPRAM OXALATE 20 MG TAB PO SCH (07:43)
[2022-04-11] MEDS: ONDANSETRON INJ 2 MG/ML 2 ML VIAL IV PRN (07:45)
[2022-04-11] MEDS: BACLOFEN 10 MG TAB PO SCH ×3 (07:45→21:50)
[2022-04-11 08:04] LABS: Calcium 8.7 mg/dl (8.5-10.1); Creatinine Clr Calc Pharmacy 132.8 ml/min; Est GFR (African American) 116.9 ml/min; Est GFR (Non-African American) 100.8 ml/min; Magnesium 1.7 mg/dl (1.7-2.4); Phosphorus 3.6 mg/dl (2.5-4.9); Potassium 3.9 mmol/L (3.5-5.1)
--- NOTE | 2022-04-11 12:15 | XRay Report ---
XR chest 2V PA/lateral CLINICAL HISTORY: f/u Pneumonia COMPARISON STUDY: Chest radiograph and chest CT April 01, 2022. FINDINGS: Low lung volumes are again noted. Intracanalicular electrodes are incidentally noted. There is no pneumothorax. Small right pleural effusion is present. Right basilar opacity has improved sinc e prior chest radiograph and chest CT. There is mild left basilar opacity. Cardiomediastinal silhouet te is stable when allowing for patient rotation. There is no evidence for pulmonary edema. IMPRESSION: 1. Significant improvement in right lower lobe pneumonia. Mild residual opacity. 2. Low lung volumes, unchanged. 3. Cardiomegaly. No evidence for pulmonary edema. ACT 112: Negative or not required by law. Electronically signed by: Salazar Turner M.D. 04/11/2022 12:14 PM
[2022-04-11] MEDS: HYDROCODONE/ACETAMOPHEN 5/325MG TAB PO PRN (12:30)
--- NOTE | 2022-04-11 13:40 | Hospitalist Progress Note ---
Date of Service April 11, 2022 Assessment & Plan (1) Pneumonia: Plan: viral (RSV) + bacterial superinfection (suspected). b/l, worst location RLL. s/p ceftriaxone and doxycycline x7 days - completed. Sputum culture and blood cultures no growth Appreciate speech consult. CXR today with nice radiographic improvement. (2) New onset atrial fibrillation: Plan: paroxysmal, resolved. now in NSR. Continue amiodarone 400 Mg p.o. twice daily x10-day course and then convert to 200 mg daily on 04/13/22. Continue anticoagulation with Eliquis 5 mg p.o. twice daily. no AV kayla agents - had significant hypotension with beta blockers earlier this admission. (3) Ileus: Plan: over the last few days he has appeared to have a colonic ileus, thought 2nd to chronic narcotics. he has had incomplete response to multiple constipation agents (has had severe constipation in addition to ileus). despite aggressive Rx of ileus/constipation he has had ongoing LLQ abd pain. this was his largest complaint today. due to the severity of the pain we elected to obtain repeat CT a/p with PO/IV contrast. this did NOT show any acute pathology although they mentioned liquid stool throughout the left colon/rectum. c diff test was obtained -- negative. etiology of his ongoing pain? will ask GI to see in am. keep on clear liquids. resume IV fluids. pain meds prn. (4) Abdominal pain: Plan: LLQ see #3 above (5) Elevated troponin: Plan: 2nd to myocardial demand ischemia in setting of rapid a.fib earlier this admission Echocardiogram without any wall motion abnormalities and with preserved EF (6) Hypertension: Plan: Continue to hold lisinopril and Lasix with currently normal blood pressure (7) Depression: Plan: Continue Lexapro 20 mg p.o. daily and trazodone 100 mg p.o. at bedtime (8) Hypothyroidism: Plan: Continue levothyroxine 100 mcg daily. TSH on admission 1.89 (9) Lumbar stenosis: Plan: Intrathecal pump, baclofen 10 mg 3 times daily. norco prn morphine prn (10) Thoracic aortic aneurysm (TAA): Plan: Noted on CT chest to be 4.5 cm Follow-up as an outpatient with ongoing surveillance Plan DVT prophylaxis-Eliquis. Of note, he has a left AC fossa superficial thrombophlebitis-should use warm compresses prn (patient did not complain of this today) attempted to call pt's today but phone just rang, unable to leave message Admission and Anticipated Discharge Date Admission Date: April 01, 2022 Subjective patient states that his cough is largely resolved scant sputum production no dyspnea very poor appetite main complaint is that of LLQ pain persistent, mod-severe does not radiate no upper abdominal pain denies vomiting passed flatus only 1x today passed a tiny, soft, mildly loose stool this am having the stool did not help his abdominal pain tele overnight - NSR or sinus garo Review of Systems Review of Systems: gen - no fevers, no chills cv - no cp pulm - no dyspnea GI - see HPI Physical Exam Physical Exam: gen - NAD mouth - MMM neck - no JVD heart - RRR, s1 s2, no murmur lungs - minimal rales R base abd - tender LLQ, BS+, soft, ND ext - no edema, pulses 2+ b/l Results & Data Results & Data ([facility]) Vital Signs (Past 12 Hours) Vital Signs Temp Pulse Resp BP Pulse Ox O2 Del Method 04/11/22 11:29 36.8 C 56 L 16 136/75 97 04/11/22 08:02 36.8 C 65 16 127/68 94 Room Air 04/11/22 04:00 36.5 C 57 L 18 125/74 95 Room Air Laboratory Results Laboratory Results - last 24 hr 04/11/22 04/11/22 04/11/22 05:45 05:45 07:19 WBC 2.90 L RBC 3.69 L Hgb 11.4 L Hct 33.7 L MCV 91.3 MCH 30.9 MCHC 33.8 RDW Std Deviation 44.9 RDW Coeff of Kj 13.8 Plt Count 223 MPV 10.3 Sodium Cancelled 140 Potassium Cancelled 3.9 Chloride Cancelled 105 Carbon Dioxide Cancelled 30 Anion Gap Cancelled 5 BUN Cancelled 6 Creatinine Cancelled 0.67 Est Cr Clr Drug Dosing Cancelled 132.8 Est GFR ( Amer) Cancelled 116.9 Est GFR (Non-Af Amer) Cancelled 100.8 BUN/Creatinine Ratio Cancelled 9.0 L Glucose Cancelled 93 Calcium Cancelled 8.7 Phosphorus Cancelled 3.6 Magnesium Cancelled 1.7 Lipase Stl C. diff Tox B Gene 04/11/22 04/11/22 07:19 23:17 WBC RBC Hgb Hct MCV MCH MCHC RDW Std Deviation RDW Coeff of Kj Plt Count MPV Sodium Potassium Chloride Carbon Dioxide Anion Gap BUN Creatinine Est Cr Clr Drug Dosing Est GFR ( Amer) Est GFR (Non-Af Amer) BUN/Creatinine Ratio Glucose Calcium Phosphorus Magnesium Lipase 7 L Stl C. diff Tox B Gene Negative Cdiff Gene PG Care Time/CCT Total # of Minutes Spent Total Time Spent with Patient: Total time spent is greater than 50% in coordination of care (as documented) at patient's floor/unit and/or counseling patient: Coding Level of Care Code 25293 Subseq Hosp Care Lvl 3 Diagnoses Pneumonia J18.9 New onset atrial fibrillation I48.91 Ileus K56.7 Abdominal pain R10.9 Elevated troponin R77.8 Hypertension I10 Depression F32.9 Hypothyroidism E03.9 Lumbar stenosis M48.061 Thoracic aortic aneurysm (TAA) I71.20
[2022-04-11] MEDS: MoRPHine SULFATE 2 MG/ML CARP IV PRN ×2 (14:09→21:07)
[2022-04-11] MEDS: D5W AND LACTATED RINGERS 1,000 ML IV SCH (14:13)
--- NOTE | 2022-04-11 14:35 | XRay Report ---
XR KUB/Abdomen 1 view CLINICAL HISTORY: f/u colonic ileus,abdominal pain TECHNIQUE: 1 view of the abdomen was obtained. Comparison: Comparison is made to abdomen radiograph 04/10/2022 FINDINGS: Fixation hardware is seen in the lower spine. Scoliosis is noted. A pain pump is noted. There is no l onger definite small bowel dilation. Large bowel gas is seen, decreased in conspicuity prior exam, wi th no significant stool burden. IMPRESSION: Interval improvement in previously noted large and small bowel gaseous dilation. ACT 112: Negative or not required by law. Electronically signed by: Bebeto Loya M.D. 04/11/2022 2:33 PM
[2022-04-11] MEDS ORDERED: OPTIRAY 350 100ml IV ONE (16:11)
--- NOTE | 2022-04-11 16:27 | CT Scan Report ---
CT SCAN OF THE ABDOMEN AND PELVIS WITH IV CONTRAST CLINICAL HISTORY: Left lower quadrant abdominal pain. COMPARISON STUDY: Abdominal CT dated 04/02/2022. TECHNIQUE: Following the IV administration of 90 cc of Optiray threaded and 50, CT scan of the abdom en and pelvis is performed from the lung bases to the proximal femora. Images are reviewed in the axi al, sagittal, and coronal planes. IV contrast was administered without complication. Oral contrast wa s utilized. A dose lowering technique was utilized adhering to the principles of ALARA. The examinati on is significantly degraded by motion artifact, as well as by streak artifact from the arms which co uld not be elevated above the abdomen. There is also metallic streak artifact from spinal hardware an d electronic device in the abdominal wall. CT DOSE: 1350.31 mGycm FINDINGS: Lung bases: The heart is normal in size and without pericardial effusion. There are small right and t race left pleural effusions with dependent consolidation. There is a moderate hiatal hernia. Liver: The contrast-enhanced liver is normal in size, contour, and attenuation. There is no intrahepa tic biliary ductal dilatation. The hepatic veins and portal veins are patent. Gallbladder: Unremarkable. Spleen: Normal in size and attenuation. Pancreas: Moderately atrophic and grossly unremarkable. Adrenal glands: Unremarkable. Kidneys: The contrast enhanced kidneys demonstrate mild cortical atrophy and are without hydronephros is. The kidneys enhance symmetrically. There are at least 2 nonobstructing left renal calculi measuri ng up to 13 mm. An indeterminate 16 mm cortical hypodensity in the left lower pole is unchanged. Abdominal vasculature: The abdominal aorta is normal in course and caliber. Bowel: There is moderate fecal retention in the right colon. There is no bowel obstruction. Enteric c ontrast reaches the cecum. Liquid stool is noted in the rectosigmoid. The appendix is not identified and reported surgically absent. Peritoneum: There is no intraperitoneal free air or abdominal ascites. Lymphadenopathy: None. Pelvic viscera: The prostate gland is diminutive and heterogeneous. The bladder is largely decompress ed. The wall appears thickened/trabeculated indicating chronic outlet obstruction. Surgical clips are noted along the spermatic cord. Skeletal structures: The skeletal structures are osteopenic. There is lumbosacral spondylosis and sco liosis. Postoperative changes seen throughout the lumbar spine. Benign-appearing sclerotic change is again seen in the medial left ilium. No lytic or blastic lesions are identified. Chronic deformity of the bony pelvis is similar to previous. A pain pump device is present in the wall of the right ventr al pelvis. The catheter extends into the spinal canal in the lumbar region. A neurostimulator device is present in the left ventral pelvic wall. The leads anterior the central canal in the lower thoraci c region. IMPRESSION: 1. Significantly streak and motion compromised examination. 2. Liquid stool is noted in the left colon. Correlate clinically for evidence of a diarrheal illness. 3. There is no bowel obstruction. 4. Small right and trace left pleural effusions with dependent consolidation. This could represent at electasis and/or pneumonia and clinical correlation will be required. Right basilar consolidation has improved as compared to 04/02/2022. 5. Left-sided nephrolithiasis. 6. Additional findings as above. ACT 112: Negative or not required by law. Electronically signed by: Davey Trejo M.D. 04/11/2022 4:26 PM
[2022-04-11] MEDS: traZODone HCL 100 MG TAB PO SCH (20:14)
[2022-04-12] MEDS: D5W AND LACTATED RINGERS 1,000 ML IV SCH ×2 (01:38→14:31)
[2022-04-12] MEDS: LEVOTHYROXINE SODIUM 100 MCG TABLET PO SCH (05:55)
[2022-04-12] MEDS: MULTIVITAMIN TAB PO SCH (07:48)
[2022-04-12] MEDS: DOCUSATE SODIUM/SENNA 50/8.6MG TAB PO SCH ×2 (07:49→20:39)
[2022-04-12] MEDS: AMIODARONE 200 MG TAB PO SCH ×2 (07:50→17:20)
[2022-04-12] MEDS: PANTOprazole 40 MG TAB PO SCH (07:51)
[2022-04-12] MEDS: CHOLECALCIFEROL 1,000 UNITS 25 MCG TAB PO SCH (07:51)
[2022-04-12] MEDS: APIXABAN 5 MG TABLET PO SCH ×2 (07:51→20:38)
[2022-04-12] MEDS: ESCITALOPRAM OXALATE 20 MG TAB PO SCH (07:52)
[2022-04-12] MEDS: FLUTICASONE/VILANTEROL 200/25MCG 14 PUFFS/INHALER INH SCH (07:52)
[2022-04-12] MEDS: POLYETHYLENE (MIRALAX) 17 GM PACK PO SCH ×3 (07:53→20:39)
[2022-04-12] MEDS: BACLOFEN 10 MG TAB PO SCH ×3 (07:57→20:38)
[2022-04-12] MEDS: HYDROCODONE/ACETAMOPHEN 5/325MG TAB PO PRN (09:17)
[2022-04-12] MEDS ORDERED: METHYLNALTREXONE BROMIDE 12 MG/0.6 ML VIAL SQ ONE (09:46)
--- NOTE | 2022-04-12 09:49 | Gastroenterology Progress Note ---
Date of Service April 12, 2022 Assessment & Plan (1) Abdominal pain: Plan: -Spoke with Dr. Cardenas. -Relistor 12 mg SQ x 1 dose. -Continue supportive care. -Will monitor for clinical response. Admission and Anticipated Discharge Date Admission Date: April 01, 2022 Supervising Physician Co-Signing Physician Notes Agree with SYLVIA Shearer as above Abd: Soft, tender LLQ, slightly distended, +BS Continue current therapy and supportive care Received Relistor this AM, with no significant BM as of this time. Subjective Thom Choe was evaluated today in regard to ongoing LLQ pain. He rates the pain as 6/[address] a/p with po/iv contrast reviewed. Right colon fecal retention noted. No obstruction or inflammatory change. Did have a small bm last evening. Review of Systems Constitutional: no fever and no chills Gastrointestinal: as per Subjective / HPI Physical Exam Constitutional: well developed and well nourished Eyes: EOM intact bilaterally Neck: normal visual inspection Respiratory: normal respiratory effort Gastrointestinal (Abdomen): Inspection/Auscultation: + abdomen distended Percussion/Palpation: + abdomen tender (moderate LLQ) and abdomen soft Skin: normal color Psychiatric: A+Ox3, euthymic affect Results & Data Results & Data ([facility]) Vital Signs (Past 12 Hours) Vital Signs Temp Pulse Pulse Resp BP Pulse Ox O2 Del Method 04/12/22 07:34 36.6 C 55 L 18 129/72 95 Room Air 04/12/22 00:00 Room Air 04/12/22 03:15 36.4 C L 54 L 20 114/55 L 93 Room Air 04/11/22 22:08 50 L 04/11/22 23:05 36.5 C 60 18 120/63 95 Room Air Diagnostic Findings Laboratory Results WBC 2.90 K/ul (4.8-10.8) L 04/11/22 05:45 RBC 3.69 M/uL (4.63-6.08) L 04/11/22 05:45 Hgb 11.4 g/dl (14.0-18.0) L 04/11/22 05:45 Hct 33.7 % (40.1-51.0) L 04/11/22 05:45 MCV 91.3 fL (80.0-100.0) 04/11/22 05:45 MCH 30.9 pg (25.0-34.0) 04/11/22 05:45 MCHC 33.8 g/dL (32.0-36.0) 04/11/22 05:45 RDW Std Deviation 44.9 fL (36.4-46.3) 04/11/22 05:45 RDW Coeff of Kj 13.8 % (11.5-14.5) 04/11/22 05:45 Plt Count 223 K/uL (130-400) 04/11/22 05:45 MPV 10.3 fL (9.4-12.4) 04/11/22 05:45 Immature Gran % (Auto) 0.5 % 04/04/22 08:34 Neut % (Auto) 68.6 % 04/04/22 08:34 Lymph % (Auto) 19.1 % 04/04/22 08:34 [place] % (Auto) 9.9 % 04/04/22 08:34 Eos % (Auto) 1.4 % 04/04/22 08:34 Baso % (Auto) 0.5 % 04/04/22 08:34 Neut # (Auto) 4.32 K/uL (1.4-6.5) 04/04/22 08:34 Lymph # (Auto) 1.20 K/uL (1.2-3.4) 04/04/22 08:34 [place] # (Auto) 0.62 K/uL (0.24-0.82) 04/04/22 08:34 Eos # (Auto) 0.09 K/uL (0-0.50) 04/04/22 08:34 Baso # (Auto) 0.03 K/uL (0-0.2) 04/04/22 08:34 Immature Gran # (Auto) 0.03 K/uL (0.00-0.02) H 04/04/22 08:34 Absolute Nucleated RBC Cancelled 04/04/22 08:08 Nucleated RBC % (auto) Cancelled 04/04/22 08:08 Neutrophils % (Manual) Cancelled 04/04/22 08:08 Band Neutrophils % Cancelled 04/04/22 08:08 Lymphocytes % (Manual) Cancelled 04/04/22 08:08 Prolymphocyte % Cancelled 04/04/22 08:08 Reactive Lymphs % (Man) Cancelled 04/04/22 08:08 Monocytes % (Manual) Cancelled 04/04/22 08:08 Eosinophils % (Manual) Cancelled 04/04/22 08:08 Basophils % (Manual) Cancelled 04/04/22 08:08 Metamyelocytes % (Man) Cancelled 04/04/22 08:08 Myelocytes % (Man) Cancelled 04/04/22 08:08 Promyelocytes % (Man) Cancelled 04/04/22 08:08 Blast Cells % (Manual) Cancelled 04/04/22 08:08 Plasma Cell % (Manual) Cancelled 04/04/22 08:08 Other Cells % Cancelled 04/04/22 08:08 Nucleated RBC % Cancelled 04/04/22 08:08 Neutrophils # (Manual) Cancelled 04/04/22 08:08 Band Neutrophils # Cancelled 04/04/22 08:08 Total Absolute Neuts Cancelled 04/04/22 08:08 Lymphocytes # (Manual) Cancelled 04/04/22 08:08 Prolymphocyte # Cancelled 04/04/22 08:08 Reactive Lymphs # Cancelled 04/04/22 08:08 Total Abs Lymphocytes Cancelled 04/04/22 08:08 Monocytes # (Manual) Cancelled 04/04/22 08:08 Eosinophils # (Manual) Cancelled 04/04/22 08:08 Basophils # (Manual) Cancelled 04/04/22 08:08 Metamyelocytes # (Man) Cancelled 04/04/22 08:08 Myelocytes # (Manual) Cancelled 04/04/22 08:08 Promyelocytes # (Man) Cancelled 04/04/22 08:08 Blast Cells # (Man) Cancelled 04/04/22 08:08 Plasma Cell # (Manual) Cancelled 04/04/22 08:08 Other Cells # Cancelled 04/04/22 08:08 Nucleated RBCs # (Man) Cancelled 04/04/22 08:08 Hypersegmented Neuts Cancelled 04/04/22 08:08 Hyposegmented Neuts Cancelled 04/04/22 08:08 Hypogranular Neuts Cancelled 04/04/22 08:08 Large Granular Lymphs Cancelled 04/04/22 08:08 # Lrg Granular Lymphs Cancelled 04/04/22 08:08 Hairy Cells Cancelled 04/04/22 08:08 Smudge Cells Cancelled 04/04/22 08:08 Toxic Granulation Cancelled 04/04/22 08:08 Toxic Vacuolation Cancelled 04/04/22 08:08 Dohle Bodies Cancelled 04/04/22 08:08 Lee Rods Cancelled 04/04/22 08:08 Platelet Estimate Cancelled 04/04/22 08:08 Hypogranular Platelets Cancelled 04/04/22 08:08 Clumped Platelets Cancelled 04/04/22 08:08 Giant Platelets Cancelled 04/04/22 08:08 Platelet Satelliting Cancelled 04/04/22 08:08 RBC Morphology Cancelled 04/04/22 08:08 Polychromasia Cancelled 04/04/22 08:08 Hypochromasia Cancelled 04/04/22 08:08 Poikilocytosis Cancelled 04/04/22 08:08 Basophilic Stippling Cancelled 04/04/22 08:08 Anisocytosis Cancelled 04/04/22 08:08 Microcytosis Cancelled 04/04/22 08:08 Macrocytosis Cancelled 04/04/22 08:08 Spherocytes Cancelled 04/04/22 08:08 Pappenheimer Bodies Cancelled 04/04/22 08:08 Sickle Cells Cancelled 04/04/22 08:08 Target Cells Cancelled 04/04/22 08:08 Tear Drop Cells Cancelled 04/04/22 08:08 Ovalocytes Cancelled 04/04/22 08:08 Stomatocytes Cancelled 04/04/22 08:08 Pride-[place] Bodies Cancelled 04/04/22 08:08 Echinocytes Cancelled 04/04/22 08:08 Acanthocytes (Spur) Cancelled 04/04/22 08:08 Rouleaux Cancelled 04/04/22 08:08 RBC Agglutinates Cancelled 04/04/22 08:08 Schistocytes Cancelled 04/04/22 08:08 Sezary Cell Cancelled 04/04/22 08:08 PT 10.3 Seconds (9.0-12.0) 04/03/22 08:56 INR 1.0 (0.9-1.1) 04/03/22 08:56 APTT 25.3 Seconds (21.0-31.0) 04/03/22 08:56 PTT Ratio 0.9 04/03/22 08:56 Sodium 140 mmol/L (136-145) 04/11/22 07:19 Potassium 3.9 mmol/L (3.5-5.1) 04/11/22 07:19 Chloride 105 mmol/L (98-107) 04/11/22 07:19 Carbon Dioxide 30 mmol/L (21-32) 04/11/22 07:19 Anion Gap 5 (3-11) 04/11/22 07:19 BUN 6 mg/dl (6-23) 04/11/22 07:19 Creatinine 0.67 mg/dl (0.6-1.4) 04/11/22 07:19 Est Cr Clr Drug Dosing 132.8 ml/min 04/11/22 07:19 Est GFR ( Amer) 116.9 ml/min 04/11/22 07:19 Est GFR (Non-Af Amer) 100.8 ml/min 04/11/22 07:19 BUN/Creatinine Ratio 9.0 (10-20) L 04/11/22 07:19 Glucose 93 mg/dl (70-99(Fasting)) 04/11/22 07:19 Calcium 8.7 mg/dl (8.5-10.1) 04/11/22 07:19 Phosphorus 3.6 mg/dl (2.5-4.9) 04/11/22 07:19 Magnesium 1.7 mg/dl (1.7-2.4) 04/11/22 07:19 Total Bilirubin 0.6 mg/dl (0.2-1.0) 04/03/22 08:56 AST 14 U/L (13-39) 04/03/22 08:56 ALT 10 U/L (7-52) 04/03/22 08:56 Alkaline Phosphatase 53 U/L (34-104) 04/03/22 08:56 Troponin I High Sens 51.7 pg/ml (0-20) H* D 04/02/22 12:25 Total Protein 6.6 gm/dl (6.0-8.3) 04/03/22 08:56 Albumin 3.6 gm/dl (3.4-5.0) 04/03/22 08:56 Globulin 3.0 gm/dl (2.5-4.0) 04/03/22 08:56 Albumin/Globulin Ratio 1.2 (0.9-2) 04/03/22 08:56 Lipase 7 U/L (11-82) L 04/11/22 07:19 Procalcitonin 4.54 ng/ml (0-0.5) H 04/01/22 12:45 TSH 1.899 uIu/ml (0.300-4.500) 04/01/22 12:45 Stool Occult Bld Scrn Positive (Negative) A 04/02/22 23:10 Stl C. diff Tox B Gene Negative Cdiff Gene (Neg) 04/11/22 23:17 Adenovirus (PCR) Not Detected (NotDetected) 04/03/22 Unknown B. pertussis DNA (PCR) Not Detected (NotDetected) 04/03/22 Unknown B.parapertussis DNA PCR Not Detected (NotDetected) 04/03/22 Unknown C. pneumoniae DNA (PCR) Not Detected (NotDetected) 04/03/22 Unknown Coronavirus OC43 (PCR) Not Detected (NotDetected) 04/03/22 Unknown Coronavirus HKU1 (PCR) Not Detected (NotDetected) 04/03/22 Unknown Coronavirus 229E (PCR) Not Detected (NotDetected) 04/03/22 Unknown SARS-CoV-2 (PCR) Not Detected (NotDetected) 04/03/22 Unknown Coronavirus NL63 (PCR) Not Detected (NotDetected) 04/03/22 Unknown Hepatitis C Ab (EIA) NON-REACTIVE (NON-REACTIVE) 04/02/22 07:07 Hep C Ab Signal/Cutoff 0.03 (<1.00) 04/02/22 07:07 Human Metapneumovir PCR Not Detected (NotDetected) 04/03/22 Unknown Influenza Type A (PCR) Not Detected (NotDetected) 04/03/22 Unknown Influenza Type B (PCR) Not Detected (NotDetected) 04/03/22 Unknown M. pneumoniae (PCR) Not Detected (NotDetected) 04/03/22 Unknown Parainfluenza 1 (PCR) Not Detected (NotDetected) 04/03/22 Unknown Parainfluenza 2 (PCR) Not Detected (NotDetected) 04/03/22 Unknown Parainfluenza 3 (PCR) Not Detected (NotDetected) 04/03/22 Unknown Parainfluenza 4 (PCR) Not Detected (NotDetected) 04/03/22 Unknown RSV (PCR) DETECTED (NotDetected) A* 04/03/22 Unknown Entero/Rhino (PCR) Not Detected (NotDetected) 04/03/22 Unknown SARS-CoV-2, RNA, NAAT NEGATIVE (NEGATIVE) 04/01/22 13:45 Blood Parasites ID Cancelled 04/04/22 08:08 Blood Type O Positive 04/02/22 12:57 Antibody Screen NEGATIVE 04/02/22 12:57 Impressions Chest CTA 04/01/22 13:48 CT angio chest PE protocol CT DOSE: 804.01 mGy.cm HISTORY: 66 years-old Male with PE. Acute shortness of breath TECHNIQUE: Multiple CTA images of the chest were obtained after the intravenous administration of 117 ml Optiray. Coronal and sagittal MIPS were obtained from the axial data set and were submitted for review. All measurements were obtained according to NASCET criteria. A dose lowering technique was utilized adhering to the principles of ALARA. COMPARISON: Chest radiograph of same day FINDINGS: Limited exam secondary to positioning and respiratory motion artifact. CTA: Moderate cardiomegaly. Piriform dilation of the ascending thoracic aorta measures up to 4.5 cm at the level of the main pulmonary artery. No dissection. Dilated pulmonary arteries suggestive of pulmonary arterial hypertension. No pulmonary emboli identified. CT CHEST: No thyroid nodule. Nonspecific mediastinal and hilar lymphadenopathy include subcarinal lymph nodes measuring up to 1.7 cm. No pneumothorax. Trace right pleural effusion. Subsegmental left basilar atelectasis. No overt pulmonary edema. Dense airspace opacities throughout the right lung are most pronounced in the right lower lobe. Tracheobronchial secretions with mucous plugging. Bronchial wall thickening throughout the right lung. Calculated left kidney measure up to 7 mm. Nonspecific diffuse esophageal wall thickening. Unremarkable soft tissues. No acute fracture. Degenerative changes of the shoulders and spine. Partially imaged catheter is are noted within the central canal of the thoracic spine. No acute fracture identified. IMPRESSION: 1. Cardiomegaly without pulmonary emboli identified. 2. Dense airspace opacities throughout the right lung, most pronounced within the right lower lobe compatible with pneumonia. Follow-up imaging after treatment course is needed to document resolution. 3. Mediastinal and hilar lymphadenopathy, favored to be reactive. 4. Left nephrolithiasis. ACT 112: Negative or not required by law. The above report was generated using voice recognition software. It may contain grammatical, syntax or spelling errors. Electronically signed by: Regulo Shabazz M.D. 04/01/2022 2:52 PM Chest X-Ray 04/11/22 07:00 XR chest 2V PA/lateral CLINICAL HISTORY: f/u Pneumonia COMPARISON STUDY: Chest radiograph and chest CT April 01, 2022. FINDINGS: Low lung volumes are again noted. Intracanalicular electrodes are incidentally noted. There is no pneumothorax. Small right pleural effusion is present. Right basilar opacity has improved since prior chest radiograph and chest CT. There is mild left basilar opacity. Cardiomediastinal silhouette is stable when allowing for patient rotation. There is no evidence for pulmonary edema. IMPRESSION: 1. Significant improvement in right lower lobe pneumonia. Mild residual opacity. 2. Low lung volumes, unchanged. 3. Cardiomegaly. No evidence for pulmonary edema. ACT 112: Negative or not required by law. Electronically signed by: Salazar Turner M.D. 04/11/2022 12:14 PM KUB X-Ray 04/11/22 07:00 XR KUB/Abdomen 1 view CLINICAL HISTORY: f/u colonic ileus,abdominal pain TECHNIQUE: 1 view of the abdomen was obtained. Comparison: Comparison is made to abdomen radiograph 04/10/2022 FINDINGS: Fixation hardware is seen in the lower spine. Scoliosis is noted. A pain pump is noted. There is no longer definite small bowel dilation. Large bowel gas is see n, decreased in conspicuity prior exam, with no significant stool burden. IMPRESSION: Interval improvement in previously noted large and small bowel gaseous dilation. ACT 112: Negative or not required by law. Electronically signed by: Bebeto Loya M.D. 04/11/2022 2:33 PM Abdomen/Pelvis CT 04/11/22 13:38 CT SCAN OF THE ABDOMEN AND PELVIS WITH IV CONTRAST CLINICAL HISTORY: Left lower quadrant abdominal pain. COMPARISON STUDY: Abdominal CT dated 04/02/2022. TECHNIQUE: Following the IV administration of 90 cc of Optiray threaded and 50, CT scan of the abdomen and pelvis is performed from the lung bases to the proximal femora. Images are reviewed in the axial, sagittal, and coronal planes. IV contrast was administered without complication. Oral contrast was utilized. A dose lowering technique was utilized adhering to the principles of ALARA. The examination is significantly degraded by motion artifact, as well as by streak artifact from the arms which could not be elevated above the abdomen. There is also metallic streak artifact from spinal hardware and electronic device in the abdominal wall. CT DOSE: 1350.31 mGycm FINDINGS: Lung bases: The heart is normal in size and without pericardial effusion. There are small right and trace left pleural effusions with dependent consolidation. There is a moderate hiatal hernia. Liver: The contrast-enhanced liver is normal in size, contour, and attenuation. There is no intrahepatic biliary ductal dilatation. The hepatic veins and portal veins are patent. Gallbladder: Unremarkable. Spleen: Normal in size and attenuation. Pancreas: Moderately atrophic and grossly unremarkable. Adrenal glands: Unremarkable. Kidneys: The contrast enhanced kidneys demonstrate mild cortical atrophy and are without hydronephrosis. The kidneys enhance symmetrically. There are at least 2 nonobstructing left renal calculi measuring up to 13 mm. An indeterminate 16 mm cortical hypodensity in the left lower pole is unchanged. Abdominal vasculature: The abdominal aorta is normal in course and caliber. Bowel: There is moderate fecal retention in the right colon. There is no bowel obstruction. Enteric contrast reaches the cecum. Liquid stool is noted in the rectosigmoid. The appendix is not identified and reported surgically absent. Peritoneum: There is no intraperitoneal free air or abdominal ascites. Lymphadenopathy: None. Pelvic viscera: The prostate gland is diminutive and heterogeneous. The bladder is largely decompressed. The wall appears thickened/trabeculated indicating chronic outlet obstruction. Surgical clips are noted along the spermatic cord. Skeletal structures: The skeletal structures are osteopenic. There is lumbosacral spondylosis and scoliosis. Postoperative changes seen throughout the lumbar spine. Benign-appearing sclerotic change is again seen in the medial left ilium. No lytic or blastic lesions are identified. Chronic deformity of the bony pelvis is similar to previous. A pain pump device is present in the wall of the right ventral pelvis. The catheter extends into the spinal canal in the lumbar region. A neurostimulator device is present in the left ventral pelvic wall. The leads anterior the central canal in the lower thoracic region. IMPRESSION: 1. Significantly streak and motion compromised examination. 2. Liquid stool is noted in the left colon. Correlate clinically for evidence of a diarrheal illness. 3. There is no bowel obstruction. 4. Small right and trace left pleural effusions with dependent consolidation. This could represent atelectasis and/or pneumonia and clinical correlation will be required. Right basilar consolidation has improved as compared to 04/02/2022. 5. Left-sided nephrolithiasis. 6. Additional findings as above. ACT 112: Negative or not required by law. Electronically signed by: Davey Trejo M.D. 04/11/2022 4:26 PM PG Care Time/CCT Total # of Minutes Spent Total Time Spent with Patient: Total time spent is greater than 50% in coordination of care (as documented) at patient's floor/unit and/or counseling patient: Coding Level of Care Code 29148 Subseq Hosp Care Lvl 3 Diagnoses Abdominal pain R10.9
[2022-04-12 09:53] LABS: Basophils # (auto) 0.02 K/uL (0-0.2); Basophils % (auto) 0.7 %; Eosinophils # (auto) 0.06 K/uL (0-0.50); Hematocrit (blood only) 36.4 % (40.1-51.0); Hemoglobin 12.1 g/dl (14.0-18.0); Immature Granulocytes # (auto) 0.01 K/uL (0.00-0.02); Immature Granulocytes % (auto) 0.3 %; Lymphocytes # (auto) 1.01 K/uL (1.2-3.4); Lymphocytes % (auto) 34.1 %; Mean Corpuscular Hemoglobin 30.6 pg (25.0-34.0); Mean Corpuscular Hgb Conc 33.2 g/dL (32.0-36.0); Mean Corpuscular Volume 92.2 fL (80.0-100.0); Mean Platelet Volume 9.5 fL (9.4-12.4); Monocytes % (auto) 10.1 %; Neutrophils # (auto) 1.56 K/uL (1.4-6.5); Neutrophils % (auto) 52.8 %; Platelet Count 275 K/uL (130-400); RDW Coefficient of Variation 13.9 % (11.5-14.5); RDW Standard Deviation 46.3 fL (36.4-46.3); Red Blood Count 3.95 M/uL (4.63-6.08); White Blood Count 2.96 K/ul (4.8-10.8)
[2022-04-12 10:17] LABS: BUN Creatinine Ratio 4.5 (10-20); Est GFR (African American) 116.9 ml/min; Est GFR (Non-African American) 100.8 ml/min; Potassium 4.1 mmol/L (3.5-5.1)
--- NOTE | 2022-04-12 18:49 | Hospitalist Progress Note ---
Date of Service April 12, 2022 Assessment & Plan (1) Pneumonia: Plan: resolved. viral (RSV) + bacterial superinfection (suspected). b/l, worst location RLL. s/p ceftriaxone and doxycycline x7 days - completed. Sputum culture and blood cultures no growth Appreciate speech consult. most recent CXR with nice radiographic improvement. I corresponded with infection control - ok to remove droplet isolation given his recovery, time course (2+ weeks out from start of respiratory illness), and scant cough. (2) New onset atrial fibrillation: Plan: paroxysmal, resolved. remains in NSR. Continue amiodarone 400 Mg p.o. twice daily but convert to 200 mg daily on 04/13/22. Continue anticoagulation with Eliquis 5 mg p.o. twice daily. no AV kayla agents - had significant hypotension with beta blockers earlier this admission. (3) Ileus: Plan: colonic - 2nd to opiate-induced constipation actual ileus improved/resolved on CT imaging s/p multiple agents to treat his constipation [facility] saw today - recommended relistor x 1 and follow response (4) Abdominal pain: Plan: LLQ ongoing - perhaps slightly improved today s/p CT abd/pelvis 04/11/22 -- no significant pathology seen; no colitis; no diverticulitis; no pancreatitis; no obstructing kidney stones GI saw today - feels constipation may still be playing a role in his pain relistor x 1 today per GI advance diet to full liquids, then low fiber tomorrow serial exams (5) Elevated troponin: Plan: 2nd to myocardial demand ischemia in setting of rapid a.fib earlier this admission Echocardiogram without any wall motion abnormalities and with preserved EF (6) Hypertension: Plan: Continue to hold lisinopril and Lasix with currently normal blood pressure (7) Depression: Plan: Continue Lexapro 20 mg p.o. daily and trazodone 100 mg p.o. at bedtime (8) Hypothyroidism: Plan: Continue levothyroxine 100 mcg daily. TSH on admission 1.89 (9) Lumbar stenosis: Plan: Intrathecal pump, baclofen 10 mg 3 times daily. norco prn morphine prn (10) Thoracic aortic aneurysm (TAA): Plan: Noted on CT chest to be 4.5 cm Follow-up as an outpatient with ongoing surveillance Plan DVT prophylaxis-Eliquis. Of note, he has a left AC fossa superficial thrombophlebitis-should use warm compresses prn (patient did not complain of this today) attempted to call pt's yesterday and again today but phone just rings, unable to leave message Admission and Anticipated Discharge Date Admission Date: April 01, 2022 Subjective patient states that last night following his CT ab/pelvis he did have a small, liquid bowel movement this did not provide much in the way of relief of his abdominal pain he has intermittent, mild nausea at times he is somewhat afraid to eat for fear of making his abdomen feel worse no vomiting, however scant cough only no dyspnea anxious to get home I had a discussion this am with GI regarding plan of care Review of Systems Review of Systems: gen - no fever cv - no chest pain pulm - no dyspnea or [facility] - no blood per rectum; ongoing LLQ abd pain Physical Exam Physical Exam: gen - NAD, sitting in the chair, looks better today mouth - MMM neck - no JVD heart - RRR, s1 s2, no murmur lungs - scant rales R base otherwise CTA B/l abd - tender LLQ but less so than yesterday, BS+, soft, ND, no peritoneal signs; palpable pain pump right side of abdomen ext - no edema, pulses 2+ b/l Results & Data Results & Data ([facility]) Vital Signs (Past 12 Hours) Vital Signs Temp Pulse Pulse Resp BP Pulse Ox O2 Del Method 04/12/22 16:00 Room Air 04/12/22 16:09 36.6 C 54 L 18 125/72 98 Room Air 04/12/22 16:07 57 L 04/12/22 11:02 36.3 C L 54 L 18 125/71 98 Room Air 04/12/22 08:00 53 L 04/12/22 07:34 36.6 C 55 L 18 129/72 95 Room Air Laboratory Results Laboratory Results - last 24 hr 04/11/22 04/12/22 04/12/22 23:17 09:18 09:18 WBC 2.96 L RBC 3.95 L Hgb 12.1 L Hct 36.4 L MCV 92.2 MCH 30.6 MCHC 33.2 RDW Std Deviation 46.3 RDW Coeff of Kj 13.9 Plt Count 275 MPV 9.5 Immature Gran % (Auto) 0.3 Neut % (Auto) 52.8 Lymph % (Auto) 34.1 [place] % (Auto) 10.1 Eos % (Auto) 2.0 Baso % (Auto) 0.7 Neut # (Auto) 1.56 Lymph # (Auto) 1.01 L [place] # (Auto) 0.30 Eos # (Auto) 0.06 Baso # (Auto) 0.02 Immature Gran # (Auto) 0.01 Sodium 140 Potassium 4.1 Chloride 105 Carbon Dioxide 31 Anion Gap 4 BUN 3 L Creatinine 0.67 Est Cr Clr Drug Dosing 133.0 Est GFR ( Amer) 116.9 Est GFR (Non-Af Amer) 100.8 BUN/Creatinine Ratio 4.5 L Glucose 84 Calcium 9.0 Stl C. diff Tox B Gene Negative Cdiff Gene PG Care Time/CCT Total # of Minutes Spent Total Time Spent with Patient: Total time spent is greater than 50% in coordination of care (as documented) at patient's floor/unit and/or counseling patient: Coding Level of Care Code 00375 Subseq Hosp Care Lvl 2 Diagnoses Pneumonia J18.9 New onset atrial fibrillation I48.91 Ileus K56.7 Abdominal pain R10.9 Elevated troponin R77.8 Hypertension I10 Depression F32.9 Hypothyroidism E03.9 Lumbar stenosis M48.061 Thoracic aortic aneurysm (TAA) I71.20
[2022-04-12] MEDS: MoRPHine SULFATE 2 MG/ML CARP IV PRN (19:36)
[2022-04-12] MEDS: traZODone HCL 100 MG TAB PO SCH (20:39)
[2022-04-13] MEDS: LEVOTHYROXINE SODIUM 100 MCG TABLET PO SCH (05:42)
[2022-04-13] MEDS: AMIODARONE 200 MG TAB PO SCH (08:30)
[2022-04-13] MEDS: MULTIVITAMIN TAB PO SCH (08:31)
[2022-04-13] MEDS: CHOLECALCIFEROL 1,000 UNITS 25 MCG TAB PO SCH (08:31)
[2022-04-13] MEDS: POLYETHYLENE (MIRALAX) 17 GM PACK PO SCH ×3 (08:31→19:30)
[2022-04-13] MEDS: APIXABAN 5 MG TABLET PO SCH (08:31)
[2022-04-13] MEDS: ESCITALOPRAM OXALATE 20 MG TAB PO SCH (08:31)
[2022-04-13] MEDS: PANTOprazole 40 MG TAB PO SCH (08:31)
[2022-04-13] MEDS: FLUTICASONE/VILANTEROL 200/25MCG 14 PUFFS/INHALER INH SCH (08:31)
[2022-04-13] MEDS: DOCUSATE SODIUM/SENNA 50/8.6MG TAB PO SCH ×2 (08:31→19:30)
[2022-04-13] MEDS: BACLOFEN 10 MG TAB PO SCH ×3 (08:34→19:30)
[2022-04-13] MEDS: ONDANSETRON INJ 2 MG/ML 2 ML VIAL IV PRN (09:28)
[2022-04-13 10:15] LABS: Basophils # (auto) 0.02 K/uL (0-0.2); Basophils % (auto) 0.5 %; Eosinophils # (auto) 0.09 K/uL (0-0.50); Eosinophils % (auto) 2.4 %; Hematocrit (blood only) 38.5 % (40.1-51.0); Hemoglobin 12.9 g/dl (14.0-18.0); Immature Granulocytes # (auto) 0.01 K/uL (0.00-0.02); Immature Granulocytes % (auto) 0.3 %; Lymphocytes # (auto) 0.95 K/uL (1.2-3.4); Lymphocytes % (auto) 25.1 %; Mean Corpuscular Hemoglobin 31.2 pg (25.0-34.0); Mean Corpuscular Hgb Conc 33.5 g/dL (32.0-36.0); Mean Platelet Volume 9.5 fL (9.4-12.4); Monocytes # (auto) 0.36 K/uL (0.24-0.82); Monocytes % (auto) 9.5 %; Neutrophils # (auto) 2.36 K/uL (1.4-6.5); Neutrophils % (auto) 62.2 %; Platelet Count 296 K/uL (130-400); RDW Coefficient of Variation 13.8 % (11.5-14.5); RDW Standard Deviation 46.2 fL (36.4-46.3); Red Blood Count 4.14 M/uL (4.63-6.08); White Blood Count 3.79 K/ul (4.8-10.8)
[2022-04-13 10:47] LABS: BUN Creatinine Ratio 11.8 (10-20); Calcium 8.9 mg/dl (8.5-10.1); Creatinine Clr Calc Pharmacy 131.1 ml/min; Est GFR (African American) 116.2 ml/min; Est GFR (Non-African American) 100.2 ml/min; Potassium 3.9 mmol/L (3.5-5.1)
--- NOTE | 2022-04-13 11:10 | Gastroenterology Progress Note ---
Date of Service April 13, 2022 Assessment & Plan (1) Abdominal pain: Plan: -Encourage ambulation -Relistor 12 mg SQ tomorrow if no bm today. -Continue MiraLAX 17 g TID. -Will monitor for clinical response. Admission and Anticipated Discharge Date Admission Date: April 01, 2022 Supervising Physician Co-Signing Physician Notes Agree with SYLVIA Shearer as above Abd: Soft, Tender, LLQ, slightly distended, +BS Discussed case with Dr. Cardenas of Hospitalist group Will give bowel prep tonight, NPO after midnight, colonoscopy in the AM Continue current therapy and supportive care. Subjective Patient states he has not moved his bowels since receiving the Relistor yesterday. Abdominal pain is down to 4/10. Feels "rumbling". States he cannot "push" to move his bowels due to back pain. Review of Systems Constitutional: no fever and no chills Gastrointestinal: as per Subjective / HPI Physical Exam Constitutional: WD/WN, vitals as above Respiratory: normal respiratory effort, lungs clear to auscultation Cardiovascular: Rate/Rhythm: regular rate and regular rhythm Gastrointestinal (Abdomen): Inspection/Auscultation: + hyperactive bowel sounds Percussion/Palpation: + abdomen tender (lower abdomen) and abdomen soft Psychiatric: A+Ox3, euthymic affect Results & Data Results & Data ([facility]) Vital Signs (Past 12 Hours) Vital Signs Temp Pulse Pulse Resp BP Pulse Ox O2 Del Method 04/13/22 10:12 49 L 04/13/22 05:52 36.6 C 53 L 18 129/67 95 Room Air 04/13/22 02:55 36.5 C 49 L 18 119/60 97 Room Air 04/13/22 00:00 52 L 04/13/22 00:00 Room Air PG Care Time/CCT Total # of Minutes Spent Total Time Spent with Patient: Total time spent is greater than 50% in coordination of care (as documented) at patient's floor/unit and/or counseling patient: Coding Level of Care Code 86314 Subseq Hosp Care Lvl 3 Diagnoses Abdominal pain R10.9
--- NOTE | 2022-04-13 18:07 | Hospitalist Progress Note ---
Date of Service April 13, 2022 Assessment & Plan (1) Pneumonia: Plan: resolved. viral (RSV) + bacterial superinfection (suspected). b/l, worst location RLL. s/p ceftriaxone and doxycycline x7 days - completed. Sputum culture and blood cultures no growth Appreciate speech consult. most recent CXR with nice radiographic improvement. he is off droplet isolation (2) New onset atrial fibrillation: Plan: paroxysmal, resolved. remains in NSR. no a.fib since. Completed amiodarone 400 Mg BID load. Converted to 200 mg daily on 04/13/22. On eliquis typically but hold for colonoscopy. no AV kayla agents - had significant hypotension with beta blockers earlier this admission. (3) Ileus: Plan: colonic - 2nd to opiate-induced constipation actual ileus improved/resolved on CT imaging s/p multiple agents to treat his constipation [facility] continues to follow - despite numerous doses of miralax, CT contrast, relistor - only 1 stool. Continues with LLQ abd pain despite moving his bowels. etiology?? spoke with Dr Rucker - likely colonoscopy tomorrow to ondina. (4) Abdominal pain: Plan: LLQ ongoing s/p CT abd/pelvis 04/11/22 -- no significant pathology seen; no colitis; no diverticulitis; no pancreatitis; no obstructing kidney stones despite Rx of constipation his pain continues likely colonoscopy tomorrow by Dr Rucker NPO after MN prep tonight hold eliquis (5) Elevated troponin: Plan: 2nd to myocardial demand ischemia in setting of rapid a.fib earlier this admission Echocardiogram without any wall motion abnormalities and with preserved EF (6) Hypertension: Plan: Continue to hold lisinopril and Lasix with currently normal blood pressure (7) Depression: Plan: Continue Lexapro 20 mg p.o. daily and trazodone 100 mg p.o. at bedtime (8) Hypothyroidism: Plan: Continue levothyroxine 100 mcg daily. TSH on admission 1.89 (9) Lumbar stenosis: Plan: Intrathecal pump, baclofen 10 mg 3 times daily. norco prn morphine prn (10) Thoracic aortic aneurysm (TAA): Plan: Noted on CT chest to be 4.5 cm Follow-up as an outpatient with ongoing surveillance Plan left AC fossa superficial thrombophlebitis- cont warm compresses prn did update pt's today - patient called her during my visit Admission and Anticipated Discharge Date Admission Date: April 01, 2022 Subjective had a moderate sized BM this afternoon despite such he continues with LLQ abdominal pain the pain is constant eating makes the pain worse - usually has pain in this location following meals no nausea or vomiting tolerated regular diet at breakfast, lunch no dyspnea or cough tele overnight wnl Review of Systems Review of Systems: gen - no fever cv - no chest pain pulm - no cough, wheezing or dyspnea GI - ongoing LLQ pain; no blood per rectum; no melena Physical Exam Physical Exam: gen - NAD, looks comfortable despite c/o pain in abdomen mouth - MMM neck - no JVD heart - RRR, s1 s2, no murmur lungs - scant rales R base otherwise CTA B/l abd - tender LLQ - ongoing, same as yesterday; BS+, soft, ND, no peritoneal signs; palpable pain pump right side of abdomen ext - no edema, pulses 2+ b/l psych - a/o x 3 vasc - 3-4cm superficial phlebitis of left antecubital region; no warmth, just palpable cord/clot; no redness Results & Data Results & Data ([facility]) Vital Signs (Past 12 Hours) Vital Signs Temp Pulse Pulse Resp BP Pulse Ox O2 Del Method 04/13/22 11:21 36.8 C 53 L 20 124/73 97 Room Air 04/13/22 10:12 49 L Laboratory Results Laboratory Results - last 24 hr 04/13/22 04/13/22 09:41 09:41 WBC 3.79 L RBC 4.14 L Hgb 12.9 L Hct 38.5 L MCV 93.0 MCH 31.2 MCHC 33.5 RDW Std Deviation 46.2 RDW Coeff of Kj 13.8 Plt Count 296 MPV 9.5 Immature Gran % (Auto) 0.3 Neut % (Auto) 62.2 Lymph % (Auto) 25.1 [place] % (Auto) 9.5 Eos % (Auto) 2.4 Baso % (Auto) 0.5 Neut # (Auto) 2.36 Lymph # (Auto) 0.95 L [place] # (Auto) 0.36 Eos # (Auto) 0.09 Baso # (Auto) 0.02 Immature Gran # (Auto) 0.01 Sodium 139 Potassium 3.9 Chloride 103 Carbon Dioxide 35 H Anion Gap 1 L BUN 8 Creatinine 0.68 Est Cr Clr Drug Dosing 131.1 Est GFR ( Amer) 116.2 Est GFR (Non-Af Amer) 100.2 BUN/Creatinine Ratio 11.8 Glucose 87 Calcium 8.9 PG Care Time/CCT Total # of Minutes Spent Total Time Spent with Patient: Total time spent is greater than 50% in coordination of care (as documented) at patient's floor/unit and/or counseling patient: Coding Level of Care Code 48800 Subseq Hosp Care Lvl 2 Diagnoses Pneumonia J18.9 New onset atrial fibrillation I48.91 Ileus K56.7 Abdominal pain R10.9 Elevated troponin R77.8 Hypertension I10 Depression F32.9 Hypothyroidism E03.9 Lumbar stenosis M48.061 Thoracic aortic aneurysm (TAA) I71.20
[2022-04-13] MEDS ORDERED: LAVAGE SOLUTION 4000ML PO SCH (19:00)
[2022-04-13] MEDS: traZODone HCL 100 MG TAB PO SCH (19:30)
[2022-04-14] MEDS: LEVOTHYROXINE SODIUM 100 MCG TABLET PO SCH (00:11)
--- NOTE | 2022-04-14 08:02 | Anesthesiology Consultation ---
Date of Service April 14, 2022 Assessment & Plan (1) Encounter for pre-operative examination: Chart Review Chart Review: Acceptable Risk for Surgery, Patient NOT seen in Pre Admission Testing and order entry administrator initiated Consults Requested none History Surgery Operation Date: 04/14/22 16:30 Proposed Procedures p Colonoscopy Dr. Chaim French Case, DO Height/Weight Height: 6 ft Weight: 97.8 kg Allergies Allergy/AdvReac Type Severity Reaction Status Date / Time Penicillins Allergy Unknown Rash Verified 04/01/22 15:22 sumatriptan [From Imitrex] Allergy Rash Verified 04/01/22 15:22 Medications Home Medications Medication Instructions Recorded Confirmed Last Taken multivitamin 1 tab PO DAILY 05/17/18 04/01/22 03/28/22 cholecalciferol (vitamin D3) 25 1,000 unit PO DAILY 01/28/19 04/01/22 03/28/22 mcg (1,000 unit) tablet polyethylene glycol 3350 8.5 gram 17 gm PO DAILY #72 ea 03/14/19 04/01/22 03/28/22 oral powder packet furosemide 40 mg tablet 40 mg PO DAILY #90 tabs 05/24/21 04/01/22 03/28/22 naloxone 4 mg/actuation nasal 4 mg intranasal Q2M PRN opioid 07/21/21 04/01/22 Unknown spray (Narcan) overdose #2 ea albuterol sulfate 90 mcg/actuation 2 puff inhalation Q6H PRN 09/29/21 04/01/22 Unknown aerosol inhaler (ProAir HFA) Shortness Of Breath fluticasone 500 mcg-salmeterol 50 1 inh inhalation BID 09/29/21 04/01/22 03/28/22 mcg/dose blistr powdr for inhalation (Wixela Inhub) baclofen 10 mg tablet 10 mg PO TID #30 tabs 10/27/21 04/01/22 03/28/22 lisinopril 5 mg tablet 5 mg PO DAILY #90 tabs 01/24/22 04/01/22 03/28/22 trazodone 50 mg tablet 100 mg PO HS 90 days #180 tabs 01/26/22 04/01/22 03/28/22 escitalopram oxalate 20 mg tablet 20 mg PO DAILY 02/02/22 04/01/22 03/28/22 (Lexapro) hydrocodone 5 mg-acetaminophen 325 1 tab PO BID PRN break through 02/02/2203/05 Unknown mg tablet pain #60 tabs levothyroxine 100 mcg tablet 100 mcg PO QAM #90 tabs 02/20/22 04/01/22 03/28/22 Active Medications Generic Name Dose Route Start Last Admin Trade Name Hectorq PRN Reason Stop Dose Admin Acetaminophen 650 mg 04/01/22 17:48 04/05/22 12:38 Acetaminophen 325 Mg Tab PO 05/01/22 17:47 650 mg Q4H PRN Administration Mild Pain or Fever Hydrocodone Bitart/Acetaminophen 1 tab 04/01/22 17:48 04/12/22 09:17 Hydrocodone/Acetamophen 5/325mg Tab PO 04/15/22 17:47 1 tab BID PRN Administration moderate/severe pain Al Hydrox/Mg Hydrox/Simethicone 15 ml 04/01/22 17:48 04/07/22 19:04 Aluminum/Magnesium Susp 30 Ml Udc PO 05/01/22 17:47 15 ml Q4H PRN Administration Dyspepsia Amiodarone HCl 200 mg 04/13/22 09:00 04/13/22 08:30 Amiodarone 200 Mg Tab PO 05/13/22 08:59 200 mg DAILY SHANKAR Administration Apixaban 5 mg 04/03/22 10:00 04/13/22 08:31 Apixaban 5 Mg Tablet PO 05/03/22 09:59 5 mg BID SHANKAR Administration Baclofen 10 mg 04/01/22 21:00 04/13/22 19:30 Baclofen 10 Mg Tab PO 05/01/22 20:59 10 mg TID SHANKAR Administration Escitalopram Oxalate 20 mg 04/02/22 09:00 04/13/22 08:31 Escitalopram Oxalate 20 Mg Tab PO 05/02/22 08:59 20 mg DAILY SHANKAR Administration Fluticasone/Vilanterol 1 puffs 04/02/22 09:00 04/13/22 08:31 Fluticasone/Vilanterol 200/25mcg 14 Puffs/Inhaler INH 05/02/22 08:59 1 puffs DAILY SHANKAR Administration Protocol Levothyroxine Sodium 100 mcg 04/02/22 06:30 04/14/22 00:11 Levothyroxine Sodium 100 Mcg Tablet PO 05/02/22 06:29 Not Given DAILYBB SHANKAR Morphine Sulfate 2 mg 04/10/22 15:32 04/12/22 19:36 Morphine Sulfate 2 Mg/Ml Carp IV 04/24/22 15:31 2 mg Q4H PRN Administration moderate-severe pain Multivitamins 1 tab 04/02/22 09:00 04/13/22 08:31 Multivitamin Tab PO 05/02/22 08:59 1 tab QAM SHANKAR Administration Ondansetron HCl 4 mg 04/01/22 17:48 04/13/22 09:28 Ondansetron Inj 2 Mg/Ml 2 Ml Vial IV 05/01/22 17:47 4 mg Q6H PRN Administration Nausea Pantoprazole Sodium 40 mg 04/11/22 09:00 04/13/22 08:31 Pantoprazole 40 Mg Tab PO 05/11/22 08:59 40 mg QAM SHANKAR Administration Polyethylene Glycol 17 gm 04/10/22 14:00 04/13/22 19:30 Polyethylene (Miralax) 17 Gm Pack PO 05/10/22 13:59 Not Given TID SHANKAR Senna/Docusate Sodium 1 tab 04/10/22 11:00 04/13/22 19:30 Docusate Sodium/Senna 50/8.6mg Tab PO 05/10/22 10:59 Not Given BID SHANKAR Simethicone 80 mg 04/10/22 21:18 04/11/22 07:43 Simethicone 80 Mg Chew PO 05/10/22 21:17 80 mg Q6H PRN Administration abdominal pain Trazodone HCl 100 mg 04/01/22 21:00 04/13/22 19:30 Trazodone Hcl 100 Mg Tab PO 05/01/22 20:59 Not Given HS SHANKAR Vitamin D 1,000 units 04/02/22 09:00 04/13/22 08:31 Cholecalciferol 1,000 Units 25 Mcg Tab PO 05/02/22 08:59 1,000 units DAILY SHANKAR Administration NPO Date Last Intake of Fluids: 04/14/22 Time Last Intake of Fluids: 00:01 Past Medical History Medical History (Updated 04/14/22 @ 08:05 by Zeyad Bettencourt MD) Chronic venous stasis dermatitis Depression Encounter for pre-operative examination History of broken collarbone Hypertension Hypothyroidism Kyphoscoliosis Lower extremity venous stasis Lumbar stenosis Osteoporosis Postlaminectomy syndrome of lumbosacral region Sacroiliitis Scoliosis Testicular hernia history of Thoracic aortic aneurysm (TAA) Past Family History Family History Mother Colitis Brother Colitis Hypertension Sister Hypertension Father Hypertension Prostate cancer Myocardial infarction Denies family history of Ovarian cancer Coronary heart disease Breast cancer Colorectal cancer Past Surgical History Surgical History Encounter for post-sterilization vasoplasty History of appendectomy Previous back surgery S/P hernia repair Social History Smoking Status: Never smoker Hx Alcohol Use: No Hx Substance Use: No Physical Exam Vital Signs Last Vital Signs Temp 36.6 C 04/14/22 03:14 Pulse 55 L 04/14/22 07:58 Resp 18 04/14/22 03:14 BP 125/71 04/14/22 03:14 Pulse Ox 95 04/14/22 03:14 O2 Del Method 04/14/22 03:14 O2 Flow Rate 1 04/04/22 11:27 Testing Laboratory Results 04/13/22 09:41 04/13/22 09:41 PT 10.3 Seconds (9.0-12.0) 04/03/22 08:56 INR 1.0 (0.9-1.1) 04/03/22 08:56 APTT 25.3 Seconds (21.0-31.0) 04/03/22 08:56 Blood Type O Positive 04/02/22 12:57 Antibody Screen NEGATIVE 04/02/22 12:57 04/01/22 15:09 Aerobic Blood Culture - Final Blood No growth in Aerobic bottle after 5 days. Anaerobic Blood Culture - Final 04/01/22 12:45 Aerobic Blood Culture - Final Blood No growth in Aerobic bottle after 5 days. Anaerobic Blood Culture - Final No growth in Anaerobic bottle after 5 days. 04/04/22 09:16 Gram Stain - Final Sputum, Expectorated Sputum Culture - Final Light normal diana. Electrocardiogram Date: 04/07/22 Test Reason : Blood Pressure : / mmHG Vent. Rate : 069 BPM Atrial Rate : 069 BPM P-R Int : 160 ms QRS Dur : 140 ms QT Int : 496 ms P-R-T Axes : 044 026 019 degrees QTc Int : 531 ms Normal sinus rhythm Right bundle branch block Lateral infarct (cited on or before 07-APR-2022) Abnormal ECG When compared with ECG of 06-APR-2022 06:01, No significant change was found Confirmed by Felix Mckenzie ([id number]) on 04/07/2022 10:59:47 AM Chest X-Ray Date: 04/11/22 XR chest 2V PA/lateral CLINICAL HISTORY: f/u Pneumonia COMPARISON STUDY: Chest radiograph and chest CT April 01, 2022. FINDINGS: Low lung volumes are again noted. Intracanalicular electrodes are incidentally noted. There is no pneumothorax. Small right pleural effusion is present. Right basilar opacity has improved since prior chest radiograph and chest CT. There is mild left basilar opacity. Cardiomediastinal silhouette is stable when allowing for patient rotation. There is no evidence for pulmonary edema. IMPRESSION: 1. Significant improvement in right lower lobe pneumonia. Mild residual opacity. 2. Low lung volumes, unchanged. 3. Cardiomegaly. No evidence for pulmonary edema. Echocardiogram Date: 04/03/22 EF: 55-60% LV Function: normal RWMA: + none Other Findings: + atrial enlargement (mod left) Valvular Disease: + MR (mild)
[2022-04-14] MEDS: AMIODARONE 200 MG TAB PO SCH (08:58)
[2022-04-14] MEDS: BACLOFEN 10 MG TAB PO SCH ×3 (08:58→19:45)
[2022-04-14] MEDS: CHOLECALCIFEROL 1,000 UNITS 25 MCG TAB PO SCH (08:58)
[2022-04-14] MEDS: DOCUSATE SODIUM/SENNA 50/8.6MG TAB PO SCH ×2 (08:59→19:46)
[2022-04-14] MEDS: ESCITALOPRAM OXALATE 20 MG TAB PO SCH (08:59)
[2022-04-14] MEDS: POLYETHYLENE (MIRALAX) 17 GM PACK PO SCH ×3 (08:59→19:46)
[2022-04-14] MEDS: MULTIVITAMIN TAB PO SCH (08:59)
[2022-04-14] MEDS: PANTOprazole 40 MG TAB PO SCH (08:59)
[2022-04-14] MEDS: FLUTICASONE/VILANTEROL 200/25MCG 14 PUFFS/INHALER INH SCH (08:59)
--- NOTE | 2022-04-14 09:18 | History & Physical Bridge Note ---
Date of Service April 14, 2022 History & Physical Bridge Note I have examined the patient, reviewed the History & Physical and in the interval since the performance of the History & Physical I have noted the following changes of clinical significance: Patient completed bowel preparation. Reports slightly improved abdominal pain after prep. Rates 3/10. No rectal bleeding. PE:A&Ox3. RRR, Lungs CTA bilaterally. Abdomen soft, tender LLQ. Hyperactive bowel sounds. Plan: Persistent LLQ pain and constipation. -Diagnostic colonoscopy by Dr. Rucker today. -NPO for now. -No need for additional Relistor. -Further recommendations pending results of testing. Supervising Physician Co-Signing Physician Notes Agree with SYLVIA Shearer as above Abd: Soft, Tender LUQ/LLQ, ND, +BS Continue current therapy and supportive care Proceed with colonoscopy now
[2022-04-14 09:45] LABS: BUN Creatinine Ratio 14.5 (10-20); Calcium 8.4 mg/dl (8.5-10.1); Creatinine Clr Calc Pharmacy 117.4 ml/min; Est GFR (Non-African American) 95.7 ml/min; Magnesium 1.6 mg/dl (1.7-2.4); Potassium 4.3 mmol/L (3.5-5.1)
[2022-04-14] MEDS: MAGNESIUM SULFATE / D5W 1 GM/100 ML BAG IV SCH ×2 (11:29→16:06)
[2022-04-14] MEDS ORDERED: PROPOFOL IV EMULSION 10 MG/ML 20 ML VIAL IV ONE (12:58)
[2022-04-14] MEDS ORDERED: LIDOCAINE 2% MPF LOCAL 5 ML VIAL INFIL ONE (12:58)
--- NOTE | 2022-04-14 13:27 | GI REPORT ---
Patient Name: Thom Choe Procedure Date: 04/14/2022 12:45 PM Date of : 1955 Admit Type: Inpatient Age: 66 Gender: Male Attending MD: Garth Rucker DO Procedure: Colonoscopy Providers: Garth Rucker DO Referring MD: Don Cardenas Indications: Abdominal pain in the left lower quadrant Medicines: Monitored Anesthesia Care Complications: No immediate complications. Estimated Blood Loss: Estimated blood loss: none. Procedure: Pre-Anesthesia Assessment: - Prior to the procedure, a History and Physical was performed, and patient medications and allergies were reviewed. The patient's tolerance of previous anesthesia was also reviewed. The risks and benefits of the procedure and the sedation options and risks were discussed with the patient. All questions were answered, and informed consent was obtained. Prior Anticoagulants: The patient has taken Eliquis (apixaban), last dose was 1 day prior to procedure. ASA Grade Assessment: III - A patient with severe systemic disease. After reviewing the risks and benefits, the patient was deemed in satisfactory condition to undergo the procedure. After I obtained informed consent, the scope was passed under direct vision. Throughout the procedure, the patient's blood pressure, pulse, and oxygen saturations were monitored continuously. The Colonoscope was introduced through the anus and advanced to the cecum, identified by appendiceal orifice and ileocecal valve. The colonoscopy was performed without difficulty. The patient tolerated the procedure well. The quality of the bowel preparation was fair. The ileocecal valve, appendiceal orifice, and rectum were photographed. Findings: The perianal and digital rectal examinations were normal. A 3 mm polyp was found in the ascending colon. The polyp was sessile. The polyp was removed with a cold snare. Resection and retrieval were complete. Multiple small-mouthed diverticula were found in the sigmoid colon. Non-bleeding internal hemorrhoids were found during retroflexion. Impression: - Preparation of the colon was fair. - One 3 mm polyp in the ascending colon, removed with a cold snare. Resected and retrieved. - Diverticulosis in the sigmoid colon. - Non-bleeding internal hemorrhoids. Recommendation: - Return patient to [facility] for [facility] care. - Advance diet as tolerated. - Continue present medications. - Await pathology results. Garth Rucker DO 04/14/2022 1:26:42 PM This report has been signed electronically. Note Initiated On: 04/14/2022 12:45 PM Number of Addenda: 0 I attest to the content of the Intraoperative Record and orders documented therein, exceptions below {[id number]}
--- NOTE | 2022-04-14 13:53 | Anesthesiology Progress Note ---
Date of Service April 14, 2022 Anesthesia Post Procedure Vital Signs Vital Signs: Temp Pulse Pulse Resp BP BP Pulse Ox 04/14/22 13:47 51 L 16 138/71 96 04/14/22 13:32 52 L 16 149/75 H 96 04/14/22 13:17 52 L 16 120/64 98 04/14/22 11:53 36.7 C 57 L 16 174/77 H 94 04/14/22 11:20 36.7 C 58 L 18 121/70 96 04/14/22 08:04 36.5 C 60 16 128/76 93 04/14/22 07:58 55 L 04/14/22 03:14 36.6 C 55 L 18 125/71 95 04/13/22 23:01 36.8 C 52 L 18 160/81 H 97 04/13/22 22:20 54 L 04/13/22 19:00 36.8 C 57 L 18 134/75 96 04/13/22 18:13 63 O2 Del Method 04/14/22 13:47 Room Air 04/14/22 13:32 Room Air 04/14/22 13:17 Room Air 04/14/22 11:53 Room Air 04/14/22 11:20 Room Air 04/14/22 08:04 Room Air 04/14/22 07:58 04/14/22 03:14 Room Air 04/13/22 23:01 Room Air 04/13/22 22:20 04/13/22 19:00 Room Air 04/13/22 18:13 Pain Intensity Medial Chest: Pain Intensity: 7 Bilateral Abdomen: Pain Intensity: 5 Transfer of Care Handoff Completed per policy Notes Mental Status: alert / awake / arousable and participated in evaluation Patient Amnestic to Procedure: Yes Nausea / Vomiting: adequately controlled Pain: adequately controlled Airway Patency, RR, SpO2: stable & adequate BP & HR: stable & adequate Hydration State: stable & adequate Anesthetic Complications: no major complications apparent and Pt Satisfied with anesthetic care
--- NOTE | 2022-04-14 19:21 | Communication Note ---
Date of Service: April 14, 2022 Messaged by nursing about Eliquis (for parox afib) that was held prior to colonoscopy. Polyp was removed during colonoscopy; will continue holding Eliquis until tomorrow. 5AM: Messaged by nursing about some SOB and chest pain. Per my review, ecg w/o new ischemic changes when compared to previous. Checking trop and cxr. Per dayshift yesterday, patient also scheduled to have venous duplex RUE to f/o dvt. Follow clinically and order additional workup if needed (e.g. if becomes tachycardic/hypoxic). Symptoms somewhat improved when I arrived at bedside. 2/10 constant chest pressure, no radiation. He states his dyspnea is worst than the chest discomfort. The dyspnea feels similar to when he had pneumonia last week. not pleuritic. lungs: severely diminished. no crackles. Jugular vein 1 finger breadth above R clavicle, but pulsation is easily visible. 1-2+ BLE, wearing compression stockings, has chronic venous stasis. differential: pneumonia, CHF exac, msk. vitals stable. 94% on room air; lower suspicion for PE, though grossly swollen R forearm noted.
[2022-04-14] MEDS: traZODone HCL 100 MG TAB PO SCH (19:46)
--- NOTE | 2022-04-14 20:21 | Hospitalist Progress Note ---
Date of Service April 14, 2022 Assessment & Plan (1) Pneumonia: Plan: resolved. viral (RSV) + bacterial superinfection (suspected). b/l, worst location RLL. s/p ceftriaxone and doxycycline x7 days - completed. Sputum culture and blood cultures no growth most recent CXR with nice radiographic improvement. no symptoms at this time. (2) New onset atrial fibrillation: Plan: paroxysmal, resolved. remains in NSR. no a.fib since. Completed amiodarone 400 Mg BID load. Converted to 200 mg daily on 04/13/22. On eliquis typically but on hold for colonoscopy. no AV kayla agents - had significant hypotension with beta blockers earlier this admission. (3) Ileus: Plan: colonic - 2nd to opiate-induced constipation resolved (4) Abdominal pain: Plan: LLQ etiology was uncertain despite [address] a/p except for constipation most recent CT abd/pelvis 04/11/22 -- no significant pathology seen; no colitis; no diverticulitis; no pancreatitis; no obstructing kidney stones copious stool on that CT however c diff negative s/p colonoscopy today - fair prep (event after relistor x 2 this week, golytely prep, etc) but nothing on scope to explain his pain post-colonoscopy he had NO pain thus, pain was in fact probably constipation related (5) Elevated troponin: Plan: 2nd to myocardial demand ischemia in setting of rapid a.fib earlier this admission Echocardiogram without any wall motion abnormalities and with preserved EF (6) Hypertension: Plan: Continue to hold lisinopril and Lasix with currently normal blood pressure (7) Depression: Plan: Continue Lexapro 20 mg p.o. daily and trazodone 100 mg p.o. at bedtime (8) Hypothyroidism: Plan: Continue levothyroxine 100 mcg daily. TSH on admission 1.89 (9) Lumbar stenosis: Plan: Intrathecal pump, baclofen 10 mg 3 times daily. norco prn morphine prn (10) Thoracic aortic aneurysm (TAA): Plan: Noted on CT chest to be 4.5 cm Follow-up as an outpatient with ongoing surveillance Plan left AC fossa superficial thrombophlebitis- cont warm compresses prn pt's RIGHT arm is grossly swollen; has u/s guided IV in that arm - check Doppler replace low mag; mag level in am hopeful for d/c home tomorrow did update pt's yesterday Admission and Anticipated Discharge Date Admission Date: April 01, 2022 Subjective saw patient post-colonoscopy he was resting comfortably ate dinner without incident no abdominal pain no nausea no vomiting had copious stools with his prep for colonoscopy colonoscopy was normal; mild sigmoid diverticulosis; 1 polyp tele overnight wnl Review of Systems Review of Systems: gen - good energy, walking ok cv - no cp pulm - no dyspnea; no [facility] - abd pain resolved Physical Exam Physical Exam: gen - NAD, looks comfortable; best he has looked all week mouth - MMM neck - no JVD heart - RRR, s1 s2, no murmur lungs - CTA B/l abd - soft, NT, ND, BS+ ext - no edema, pulses 2+ b/l psych - a/o x 3 vasc - 3-4cm superficial phlebitis of left antecubital region; no warmth, just palpable cord/clot; no redness; right arm is grossly swollen above the level of his peripherally inserted u/s-guided IV; mildly warm upper arm Results & Data Results & Data ([facility]) Vital Signs (Past 12 Hours) Vital Signs Temp Pulse Resp BP Pulse Ox O2 Del Method 04/14/22 18:55 36.7 C 61 20 125/73 97 Room Air 04/14/22 16:12 36.6 C 53 L 18 133/76 95 Room Air 04/14/22 13:47 51 L 16 138/71 96 Room Air 04/14/22 13:32 52 L 16 149/75 H 96 Room Air 04/14/22 13:17 52 L 16 120/64 98 Room Air 04/14/22 11:53 36.7 C 57 L 16 174/77 H 94 Room Air 04/14/22 11:20 36.7 C 58 L 18 121/70 96 Room Air Laboratory Results Laboratory Results - last 24 hr 04/14/22 07:37 Sodium 143 Potassium 4.3 Chloride 106 Carbon Dioxide 36 H Anion Gap 1 L BUN 11 Creatinine 0.76 Est Cr Clr Drug Dosing 117.4 Est GFR ( Amer) 111.0 Est GFR (Non-Af Amer) 95.7 BUN/Creatinine Ratio 14.5 Glucose 92 Calcium 8.4 L Magnesium 1.6 L PG Care Time/CCT Total # of Minutes Spent Total Time Spent with Patient: Total time spent is greater than 50% in coordination of care (as documented) at patient's floor/unit and/or counseling patient: Coding Level of Care Code 54797 Subseq Hosp Care Lvl 2 Diagnoses Pneumonia J18.9 New onset atrial fibrillation I48.91 Ileus K56.7 Abdominal pain R10.9 Elevated troponin R77.8 Hypertension I10 Depression F32.9 Hypothyroidism E03.9 Lumbar stenosis M48.061 Thoracic aortic aneurysm (TAA) I71.20
[2022-04-15] MEDS: LEVOTHYROXINE SODIUM 100 MCG TABLET PO SCH (05:21)
[2022-04-15 06:20] LABS: Troponin I High Sensitivity 7.3 pg/ml (0-20)
[2022-04-15 06:25] LABS: BUN Creatinine Ratio 13.8 (10-20); Calcium 8.2 mg/dl (8.5-10.1); Creatinine Clr Calc Pharmacy 155.1 ml/min; Magnesium 1.9 mg/dl (1.7-2.4); Potassium 3.9 mmol/L (3.5-5.1)
--- NOTE | 2022-04-15 07:53 | Electrocardiogram Report ---
Test Reason : Blood Pressure : / mmHG Vent. Rate : 053 BPM Atrial Rate : 053 BPM P-R Int : 166 ms QRS Dur : 136 ms QT Int : 524 ms P-R-T Axes : 035 056 039 degrees QTc Int : 491 ms Sinus bradycardia Right bundle branch block Possible Old Lateral infarct (cited on or before 07-APR-2022) Abnormal ECG When compared with ECG of 07-APR-2022 05:21, No significant change Confirmed by Anthony Campos ([id number]) on 04/15/2022 7:52:40 AM Referred By: REFERRED SELF Confirmed By:Anthony Campos
--- NOTE | 2022-04-15 08:46 | XRay Report ---
XR chest 1V portable HISTORY: Atypical chest pain, sob. recent pneumonia COMPARISON: Chest 04/11/2022. FINDINGS: There are low lung volumes with bibasilar linear densities and small bilateral pleural effu sions. This is similar to the prior study. The heart remains enlarged. No pneumothorax. Old, healed l eft-sided rib fractures. Spinal stimulator leads are in place. IMPRESSION: No change in the small bilateral pleural effusions and bibasilar densities. ACT 112: Negative or not required by law. Electronically signed by: Darian Wiseman M.D. 04/15/2022 8:44 AM
[2022-04-15] MEDS: ONDANSETRON INJ 2 MG/ML 2 ML VIAL IV PRN (09:19)
[2022-04-15] MEDS: AMIODARONE 200 MG TAB PO SCH (10:52)
[2022-04-15] MEDS: CHOLECALCIFEROL 1,000 UNITS 25 MCG TAB PO SCH (10:52)
[2022-04-15] MEDS: ESCITALOPRAM OXALATE 20 MG TAB PO SCH (10:53)
[2022-04-15] MEDS: FLUTICASONE/VILANTEROL 200/25MCG 14 PUFFS/INHALER INH SCH (10:53)
[2022-04-15] MEDS: DOCUSATE SODIUM/SENNA 50/8.6MG TAB PO SCH ×2 (10:53→20:06)
[2022-04-15] MEDS: MULTIVITAMIN TAB PO SCH (10:54)
[2022-04-15] MEDS: PANTOprazole 40 MG TAB PO SCH ×2 (10:54→20:06)
[2022-04-15] MEDS: POLYETHYLENE (MIRALAX) 17 GM PACK PO SCH ×2 (10:54→20:06)
[2022-04-15] MEDS: SUCRALFATE 1 GM/10 ML UDC PO SCH ×4 (10:55→20:06)
[2022-04-15] MEDS: BACLOFEN 10 MG TAB PO SCH ×3 (10:57→20:05)
--- NOTE | 2022-04-15 13:53 | Ultrasound Report ---
RIGHT UPPER EXTREMITY VENOUS DOPPLER HISTORY: Right arm swelling, eval DVT COMPARISON STUDY: None. FINDINGS: The right internal jugular vein is patent. There is normal flow within the right subclavian vein. There is normal flow and compressibility within the right axillary, basilic, brachial, radial, and ulnar veins. Thrombosed right cephalic vein measuring approximately 18 cm in length from the mid upper arm to the proximal forearm. There is thrombus seen surrounding the intravenous line. IMPRESSION: No DVT within the right upper extremity. Thrombosed right cephalic vein as described above which is c onsidered to be a superficial vein. ACT 112: Negative or not required by law. Electronically signed by: Darian Wiseman M.D. 04/15/2022 1:52 PM
--- NOTE | 2022-04-15 19:34 | Hospitalist Progress Note ---
Date of Service April 15, 2022 Assessment & Plan (1) Pneumonia: Plan: resolved. viral (RSV) + bacterial superinfection (suspected). b/l, worst location RLL. s/p ceftriaxone and doxycycline x7 days - completed. Sputum culture and blood cultures no growth o2 sats wnl. no further symptoms. serial cxr's have shown ongoing improvement. droplet isolation stopped. (2) Acute thrombosis of cephalic vein: Plan: Patient has right-sided cephalic vein thrombosis, long segment, due to u/s- guided IV. I asked the IV team to remove this catheter. This is concerning that he developed this because he had been on Eliquis 5mg BID since 04/03. He also has a superficial clot in his left antecubital region. Does he have hypercoagulable state? Reason for such? Is this an Eliquis failure? switch to lovenox? Will d/w hematology in am. (3) GERD (gastroesophageal reflux disease): Plan: daily symptoms at home. CT chest at admission showed diffuse inflammation of his esophagus (see CT chest report). he was NOT on PPI at home - PPI daily was started earlier this admission. CP episode this am was likely GI/GERD. Trops neg x 2. EKG w/o changes. Nothing on tele. will increase PPI to BID dosing; add carafate. will d/w GI in am - EGD while here? could he have upper GI tract malignancy given #2?? (4) New onset atrial fibrillation: Plan: paroxysmal, resolved. remains in NSR. no a.fib since. Completed amiodarone 400 Mg BID load. Converted to 200 mg daily on 04/13/22. On eliquis typically but on hold for recent colonoscopy. no AV kayla agents - had significant hypotension with beta blockers earlier this admission. (5) Ileus: Plan: colonic - 2nd to opiate-induced constipation resolved (6) Abdominal pain: Plan: LLQ etiology was uncertain despite [address] a/p except for constipation most recent CT abd/pelvis 04/11/22 -- no significant pathology seen; no colitis; no diverticulitis; no pancreatitis; no obstructing kidney stones copious stool on that CT however c diff negative s/p colonoscopy 04/14 - fair prep (event after relistor x 2 this week, golytely prep, etc) but nothing on scope to explain his pain post-colonoscopy he had NO pain thus, pain was in fact probably constipation related (7) Elevated troponin: Plan: 2nd to myocardial demand ischemia in setting of rapid a.fib earlier this admission Echocardiogram without any wall motion abnormalities and with preserved EF trop again negative x 2 today despite chest pain episode at 5am this am unlikely to be cardiac had negative nuclear stress test in 2019 (8) Hypertension: Plan: Continue to hold lisinopril and Lasix with currently normal blood pressure (9) Depression: Plan: Continue Lexapro 20 mg p.o. daily and trazodone 100 mg p.o. at bedtime (10) Hypothyroidism: Plan: Continue levothyroxine 100 mcg daily. TSH on admission 1.89 (11) Lumbar stenosis: Plan: Intrathecal pump, baclofen 10 mg 3 times daily. norco prn morphine prn (12) Thoracic aortic aneurysm (TAA): Plan: Noted on CT chest to be 4.5 cm Follow-up as an outpatient with ongoing surveillance Plan attempted to call pt's today - like previous attempts phone just rang; no answer, unable to leave message observe overnight speak with GI and hematology in am Admission and Anticipated Discharge Date Admission Date: April 01, 2022 Subjective patient states that about 5am he was awoken by chest discomfort "dull ache" central chest/substernal felt different than his typical GERD he has frequent GERD at home - takes tums on daily basis was short of breath and had nausea with the pain this am self-resolved after 15 min EKG unchanged from prior CXR unchanged from prior ate breakfast and lunch today w/o issue LLQ abd pain resolved ambulating tele overnight including during his episode wnl no a.fib Review of Systems Review of Systems: gen - no fever pulm - no cough, no wheeze CV - no orthopnea GI - no further abd pain; no vomiting Physical Exam Physical Exam: gen - NAD, looks good, eating stuffed shells for lunch mouth - MMM neck - no JVD heart - RRR, s1 s2, no murmur lungs - CTA B/l chest - no reproducible chest wall pain to palpation abd - soft, NT, ND, BS+ ext - no edema, pulses 2+ b/l psych - a/o x 3 vasc - 3-4cm superficial phlebitis of left antecubital region unchanged; no warmth, just palpable cord/clot; no redness; right arm is grossly swollen above the level of his peripherally inserted u/s-guided IV; mildly warm upper arm -- no change from prior Results & Data Results & Data ([facility]) Vital Signs (Past 12 Hours) Vital Signs Temp Pulse Pulse Resp BP Pulse Ox O2 Del Method 04/15/22 16:00 60 04/15/22 15:06 36.8 C 62 18 112/66 96 Room Air 04/15/22 11:33 36.7 C 58 L 18 128/77 94 Room Air 04/15/22 08:00 51 L 04/15/22 07:36 36.6 C 46 L 18 146/76 H 97 Room Air Laboratory Results Laboratory Results - last 24 hr 04/15/22 04/15/22 05:23 11:50 Sodium 139 Potassium 3.9 Chloride 105 Carbon Dioxide 29 Anion Gap 5 BUN 8 Creatinine 0.58 L Est Cr Clr Drug Dosing 155.1 Est GFR ( Amer) 124.0 Est GFR (Non-Af Amer) 107.0 BUN/Creatinine Ratio 13.8 Glucose 87 Calcium 8.2 L Magnesium 1.9 Troponin I High Sens 7.3 D 7.9 Diagnostic Findings Venous Doppler Study 04/15/22 00:00 RIGHT UPPER EXTREMITY VENOUS DOPPLER HISTORY: Right arm swelling, eval DVT COMPARISON STUDY: None. FINDINGS: The right internal jugular vein is patent. There is normal flow within the right subclavian vein. There is normal flow and compressibility within the right axillary, basilic, brachial, radial, and ulnar veins. Thrombosed right cephalic vein measuring approximately 18 cm in length from the mid upper arm to the proximal forearm. There is thrombus seen surrounding the intravenous line. IMPRESSION: No DVT within the right upper extremity. Thrombosed right cephalic vein as described above which is considered to be a superficial vein. ACT 112: Negative or not required by law. Electronically signed by: Darian Wiseman M.D. 04/15/2022 1:52 PM Chest X-Ray 04/15/22 05:11 XR chest 1V portable HISTORY: Atypical chest pain, sob. recent pneumonia COMPARISON: Chest 04/11/2022. FINDINGS: There are low lung volumes with bibasilar linear densities and small bilateral pleural effusions. This is similar to the prior study. The heart remains enlarged. No pneumothorax. Old, healed left-sided rib fractures. Spinal stimulator leads are in place. IMPRESSION: No change in the small bilateral pleural effusions and bibasilar densities. ACT 112: Negative or not required by law. Electronically signed by: Darian Wiseman M.D. 04/15/2022 8:44 AM PG Care Time/CCT Total # of Minutes Spent Total Time Spent with Patient: Total time spent is greater than 50% in coordination of care (as documented) at patient's floor/unit and/or counseling patient: Coding Level of Care Code 45175 Subseq Hosp Care Lvl 3 Diagnoses Pneumonia J18.9 Acute thrombosis of cephalic vein I82.619 GERD (gastroesophageal reflux disease) K21.9 New onset atrial fibrillation I48.91 Ileus K56.7 Abdominal pain R10.9 Elevated troponin R77.8 Hypertension I10 Depression F32.9 Hypothyroidism E03.9 Lumbar stenosis M48.061 Thoracic aortic aneurysm (TAA) I71.20
[2022-04-15] MEDS: traZODone HCL 100 MG TAB PO SCH (20:10)
[2022-04-16] MEDS: LEVOTHYROXINE SODIUM 100 MCG TABLET PO SCH (05:33)
[2022-04-16 06:11] LABS: Hemoglobin 11.3 g/dl (14.0-18.0); Mean Corpuscular Hemoglobin 30.9 pg (25.0-34.0); Mean Corpuscular Hgb Conc 33.2 g/dL (32.0-36.0); Mean Corpuscular Volume 92.9 fL (80.0-100.0); Mean Platelet Volume 9.6 fL (9.4-12.4); Platelet Count 205 K/uL (130-400); RDW Coefficient of Variation 14.2 % (11.5-14.5); Red Blood Count 3.66 M/uL (4.63-6.08); White Blood Count 2.98 K/ul (4.8-10.8)
[2022-04-16 06:50] LABS: BUN Creatinine Ratio 17.8 (10-20); Calcium 8.2 mg/dl (8.5-10.1); Creatinine Clr Calc Pharmacy 122.3 ml/min; Est GFR (African American) 112.8 ml/min; Est GFR (Non-African American) 97.3 ml/min
[2022-04-16 07:05] LABS: Ferritin 83.8 ng/ml (8-388); Iron 44 mcg/dl (35-175); Total Iron Binding Cap Calc 194 mcg/dl (250-450); Transferrin (FE) Percent Satur 23 % (20-50); Unsaturated Iron Binding Cap 150 mcg/dl (155-355)
[2022-04-16] MEDS: PANTOprazole 40 MG TAB PO SCH ×2 (09:18→20:44)
[2022-04-16] MEDS: CHOLECALCIFEROL 1,000 UNITS 25 MCG TAB PO SCH (09:18)
[2022-04-16] MEDS: AMIODARONE 200 MG TAB PO SCH (09:18)
[2022-04-16] MEDS: POLYETHYLENE (MIRALAX) 17 GM PACK PO SCH ×2 (09:18→20:44)
[2022-04-16] MEDS: MULTIVITAMIN TAB PO SCH (09:22)
[2022-04-16] MEDS: DOCUSATE SODIUM/SENNA 50/8.6MG TAB PO SCH ×2 (09:22→20:44)
[2022-04-16] MEDS: FLUTICASONE/VILANTEROL 200/25MCG 14 PUFFS/INHALER INH SCH (09:23)
[2022-04-16] MEDS: ESCITALOPRAM OXALATE 20 MG TAB PO SCH (09:23)
[2022-04-16] MEDS: CYANOCOBALAMIN (B-12) 500 MCG TABLET PO SCH (09:24)
[2022-04-16] MEDS: SUCRALFATE 1 GM/10 ML UDC PO SCH ×4 (09:31→20:44)
[2022-04-16] MEDS: BACLOFEN 10 MG TAB PO SCH ×3 (09:31→20:44)
[2022-04-16] MEDS ORDERED: Heparin IV Adult Wt-Based Standard *NO* Bolus Protocol IV SCH (09:38)
[2022-04-16] MEDS: HEPARIN SODIUM/DEXTROSE 25,000 UNITS/500 ML BAG IV SCH (11:22)
[2022-04-16 12:23] LABS: INR 1.1 (0.9-1.1); Partial Thromboplastin Ratio 1.2; Partial Thromboplastin Time 32.6 Seconds (21.0-31.0); Prothrombin Time 11.6 Seconds (9.0-12.0)
[2022-04-16 17:51] LABS: Partial Thromboplastin Ratio 4.1
[2022-04-16 17:57] LABS: Partial Thromboplastin Time 113.3 Seconds (21.0-31.0)
[2022-04-16] MEDS: traZODone HCL 100 MG TAB PO SCH (20:47)
[2022-04-17 01:55] LABS: Partial Thromboplastin Ratio 3.6
[2022-04-17 02:30] LABS: Partial Thromboplastin Time 97.7 Seconds (21.0-31.0)
[2022-04-17] MEDS: LEVOTHYROXINE SODIUM 100 MCG TABLET PO SCH (05:35)
--- NOTE | 2022-04-17 06:04 | Hospitalist Progress Note ---
Date of Service April 16, 2022 Assessment & Plan (1) Pneumonia: Plan: resolved. viral (RSV) + bacterial superinfection (suspected). b/l, worst location RLL. s/p ceftriaxone and doxycycline x7 days - completed. Sputum culture and blood cultures no growth o2 sats wnl. no further symptoms. serial cxr's have shown ongoing improvement. droplet isolation stopped. (2) Acute thrombosis of cephalic vein: Plan: Patient has right-sided cephalic vein thrombosis, long segment, due to u/s- guided IV. Catheter has been removed. This is concerning that he developed this because he had been on Eliquis 5mg BID since 04/03. He also has a superficial clot in his left antecubital region. Does he have hypercoagulable state? Reason for such? Is this an Eliquis failure? switch to lovenox? Would consider this Eliquis failure. I spoke with Dr Cleary from hematology today - we both agree that Eliquis should not be resumed. When ready for discharge would send home on therapeutic lovenox. I spoke with GI today about potentially obtaining EGD to r/o esophageal ca or gastric ca - EGD to be performed tomorrow. Will place on heparin infusion today while awaiting EGD 04/17. (3) GERD (gastroesophageal reflux disease): Plan: daily symptoms at home. CT chest at admission showed diffuse inflammation of his esophagus (see CT chest report). he was NOT on PPI at home - PPI daily was started earlier this admission. CP episode 04/15 likely GI/GERD. Trops neg x 2. EKG w/o changes. Nothing on tele. increased PPI to BID dosing; added carafate. discussed care with [facility] [place] [facility] today - EGD to be performed tomorrow in light of above discussion. NPO after MN tonight. (4) New onset atrial fibrillation: Plan: paroxysmal, resolved. remains in NSR. no a.fib since. Completed amiodarone 400 Mg BID load. Converted to 200 mg daily on 04/13/22. Previously on eliquis - now stopped as noted above; heparin drip today; lovenox at d/c. no AV kayla agents - had significant hypotension with beta blockers earlier this admission. (5) Ileus: Plan: colonic - 2nd to opiate-induced constipation resolved (6) Abdominal pain: Plan: LLQ etiology was uncertain despite [address] a/p except for constipation most recent CT abd/pelvis 04/11/22 -- no significant pathology seen; no colitis; no diverticulitis; no pancreatitis; no obstructing kidney stones copious stool on that CT however c diff negative s/p colonoscopy 04/14 - fair prep (event after relistor x 2 this week, golytely prep, etc) but nothing on scope to explain his pain post-colonoscopy he had NO pain thus, pain was in fact probably constipation related (7) Elevated troponin: Plan: 2nd to myocardial demand ischemia in setting of rapid a.fib earlier this admission Echocardiogram without any wall motion abnormalities and with preserved EF trop again negative x 2 despite chest pain episode on 04/15 -- thought to be GI in origin unlikely to be cardiac had negative nuclear stress test in 2019 (8) Hypertension: Plan: Continue to hold lisinopril and Lasix with currently normal blood pressure (9) Depression: Plan: Continue Lexapro 20 mg p.o. daily and trazodone 100 mg p.o. at bedtime (10) Hypothyroidism: Plan: Continue levothyroxine 100 mcg daily. TSH on admission 1.89 (11) Lumbar stenosis: Plan: Intrathecal pump, baclofen 10 mg 3 times daily. norco prn morphine prn (12) Thoracic aortic aneurysm (TAA): Plan: Noted on CT chest to be 4.5 cm Follow-up as an outpatient with ongoing surveillance Plan attempted to call pt's again today - like previous attempts phone just rang; no answer, unable to leave message Admission and Anticipated Discharge Date Admission Date: April 01, 2022 Subjective no issues overnight no GERD symptoms or chest symptoms overnight or today tele wnl overnight he feels good offers no complaints understands need for heparin drip then lovenox due to b/l arm superficial clots eating well no abdominal pain Review of Systems Review of Systems: gen - good appetite, good energy, no fever cv - no cp pulm - mild cough intermittently; no dyspnea or [facility] - no N/V/abd pain Physical Exam Physical Exam: gen - NAD, looks great mouth - MMM neck - no JVD heart - RRR, s1 s2, no murmur lungs - CTA B/l abd - soft, NT, ND, BS+; palpable intrathecal pump right side of abdomen ext - <1+ edema b/l LEs; TEDs hose in place; right upper arm swollen, palpable cord in right arm; palpable cord left AC region improved; pulses 2+ b/l feet psych - a/o x 3 vasc - 3-4cm superficial phlebitis of left antecubital region unchanged; no warmth, just palpable cord/clot; no redness; right arm is grossly swollen mainly upper portion of arm-- no change from prior Results & Data Results & Data ([facility]) Vital Signs (Past 12 Hours) Vital Signs Temp Pulse Pulse Resp BP Pulse Ox O2 Del Method 04/17/22 04:03 36.5 C 54 L 16 126/74 94 Room Air 04/16/22 22:10 53 L 04/16/22 22:00 36.6 C 56 L 16 129/74 95 Room Air 04/16/22 19:45 36.8 C 58 L 18 139/73 96 Room Air Laboratory Results Laboratory Results - last 24 hr 04/16/22 04/16/22 04/16/22 05:56 05:56 05:56 WBC 2.98 L RBC 3.66 L Hgb 11.3 L Hct 34.0 L MCV 92.9 MCH 30.9 MCHC 33.2 RDW Std Deviation 48.0 H RDW Coeff of Kj 14.2 Plt Count 205 MPV 9.6 PT INR APTT PTT Ratio Sodium 138 Potassium 4.0 Chloride 104 Carbon Dioxide 32 Anion Gap 2 L BUN 13 Creatinine 0.73 Est Cr Clr Drug Dosing 122.3 Est GFR ( Amer) 112.8 Est GFR (Non-Af Amer) 97.3 BUN/Creatinine Ratio 17.8 Glucose 93 Calcium 8.2 L Iron TIBC Unsaturated IBC Transferrin % Sat Ferritin 83.8 Vitamin B12 323 Folate 10.99 04/16/22 04/16/22 04/16/22 05:56 11:58 17:19 WBC RBC Hgb Hct MCV MCH MCHC RDW Std Deviation RDW Coeff of Kj Plt Count MPV PT 11.6 INR 1.1 APTT 32.6 H 113.3 H* PTT Ratio 1.2 4.1 Sodium Potassium Chloride Carbon Dioxide Anion Gap BUN Creatinine Est Cr Clr Drug Dosing Est GFR ( Amer) Est GFR (Non-Af Amer) BUN/Creatinine Ratio Glucose Calcium Iron 44 TIBC 194 L Unsaturated IBC 150 L Transferrin % Sat 23 Ferritin Vitamin B12 Folate PG Care Time/CCT Total # of Minutes Spent Total Time Spent with Patient: Total time spent is greater than 50% in coordination of care (as documented) at patient's floor/unit and/or counseling patient: Coding Level of Care Code 76703 Subseq Hosp Care Lvl 3 Diagnoses Pneumonia J18.9 Acute thrombosis of cephalic vein I82.619 GERD (gastroesophageal reflux disease) K21.9 New onset atrial fibrillation I48.91 Ileus K56.7 Abdominal pain R10.9 Elevated troponin R77.8 Hypertension I10 Depression F32.9 Hypothyroidism E03.9 Lumbar stenosis M48.061 Thoracic aortic aneurysm (TAA) I71.20
[2022-04-17] MEDS: ALUMINUM/MAGNESIUM SUSP 30 ML UDC PO PRN (07:10)
[2022-04-17] MEDS ORDERED: Nursing to Pharmacy Communication SCH ×2 (07:15→10:15)
[2022-04-17] MEDS: DOCUSATE SODIUM/SENNA 50/8.6MG TAB PO SCH ×2 (07:35→21:28)
[2022-04-17] MEDS: POLYETHYLENE (MIRALAX) 17 GM PACK PO SCH ×2 (07:35→21:28)
[2022-04-17] MEDS: SUCRALFATE 1 GM/10 ML UDC PO SCH ×4 (07:35→21:28)
[2022-04-17] MEDS: PANTOprazole 40 MG TAB PO SCH ×2 (07:35→21:28)
[2022-04-17] MEDS: ESCITALOPRAM OXALATE 20 MG TAB PO SCH (07:35)
[2022-04-17] MEDS: BACLOFEN 10 MG TAB PO SCH ×3 (07:35→21:28)
[2022-04-17] MEDS: AMIODARONE 200 MG TAB PO SCH (07:35)
[2022-04-17] MEDS: MULTIVITAMIN TAB PO SCH (07:35)
[2022-04-17] MEDS: FLUTICASONE/VILANTEROL 200/25MCG 14 PUFFS/INHALER INH SCH (07:35)
[2022-04-17] MEDS: CHOLECALCIFEROL 1,000 UNITS 25 MCG TAB PO SCH (07:36)
[2022-04-17] MEDS: CYANOCOBALAMIN (B-12) 500 MCG TABLET PO SCH (07:36)
[2022-04-17] MEDS ORDERED: HEPARIN STOP ORDER ONE (07:45)
--- NOTE | 2022-04-17 08:15 | Anesthesiology Consultation ---
Date of Service April 17, 2022 Assessment & Plan (1) Encounter for pre-operative examination: History Surgery Operation Date: 04/14/22 16:30 Proposed Procedures p Colonoscopy Dr. Chaim Rucker, DO Operation Date: 04/17/22 16:30 Proposed Procedures p Esophagogastroduodenoscopy Dr. Amador English MD Height/Weight Height: 6 ft Weight: 97.8 kg Allergies Allergy/AdvReac Type Severity Reaction Status Date / Time Penicillins Allergy Unknown Rash Verified 04/17/22 08:04 sumatriptan [From Imitrex] Allergy Rash Verified 04/17/22 08:04 Medications Home Medications Medication Instructions Recorded Confirmed Last Taken multivitamin 1 tab PO DAILY 05/17/18 04/01/22 03/28/22 cholecalciferol (vitamin D3) 25 1,000 unit PO DAILY 01/28/19 04/01/22 03/28/22 mcg (1,000 unit) tablet polyethylene glycol 3350 8.5 gram 17 gm PO DAILY #72 ea 03/14/19 04/01/22 03/28/22 oral powder packet furosemide 40 mg tablet 40 mg PO DAILY #90 tabs 05/24/21 04/01/22 03/28/22 naloxone 4 mg/actuation nasal 4 mg intranasal Q2M PRN opioid 07/21/21 04/01/22 Unknown spray (Narcan) overdose #2 ea albuterol sulfate 90 mcg/actuation 2 puff inhalation Q6H PRN 09/29/21 04/01/22 Unknown aerosol inhaler (ProAir HFA) Shortness Of Breath fluticasone 500 mcg-salmeterol 50 1 inh inhalation BID 09/29/21 04/01/22 03/28/22 mcg/dose blistr powdr for inhalation (Wixela Inhub) baclofen 10 mg tablet 10 mg PO TID #30 tabs 10/27/21 04/01/22 03/28/22 lisinopril 5 mg tablet 5 mg PO DAILY #90 tabs 01/24/22 04/01/22 03/28/22 trazodone 50 mg tablet 100 mg PO HS 90 days #180 tabs 01/26/22 04/01/22 03/28/22 escitalopram oxalate 20 mg tablet 20 mg PO DAILY 02/02/22 04/01/2222 (Lexapro) hydrocodone 5 mg-acetaminophen 325 1 tab PO BID PRN break through 02/02/22 04/01/22 Unknown mg tablet pain #60 tabs levothyroxine 100 mcg tablet 100 mcg PO QAM #90 tabs 02/20/22 04/01/22 03/28/22 Active Medications Generic Name Dose Route Start Last Admin Trade Name Freq PRN Reason Stop Dose Admin Acetaminophen 650 mg 04/01/22 17:48 04/05/22 12:38 Acetaminophen 325 Mg Tab PO 05/01/22 17:47 650 mg Q4H PRN Administration Mild Pain or Fever Al Hydrox/Mg Hydrox/Simethicone 15 ml 04/01/22 17:48 04/17/22 07:10 Aluminum/Magnesium Susp 30 Ml Udc PO 05/01/22 17:47 15 ml Q4H PRN Administration Dyspepsia Amiodarone HCl 200 mg 04/13/22 09:00 04/17/22 07:35 Amiodarone 200 Mg Tab PO 05/13/22 08:59 200 mg DAILY SHANKAR Administration Apixaban 5 mg 04/03/22 10:00 04/13/22 08:31 Apixaban 5 Mg Tablet PO 05/03/22 09:59 5 mg BID SHANKAR Administration Baclofen 10 mg 04/01/22 21:00 04/17/22 07:35 Baclofen 10 Mg Tab PO 05/01/22 20:59 10 mg TID SHANKAR Administration Cyanocobalamin 1,000 mcg 04/16/22 09:00 04/17/22 07:36 Cyanocobalamin (B-12) 500 Mcg Tablet PO 05/16/22 08:59 1,000 mcg QAM SHANKAR Administration Escitalopram Oxalate 20 mg 04/02/22 09:00 04/17/22 07:35 Escitalopram Oxalate 20 Mg Tab PO 05/02/22 08:59 20 mg DAILY SHANKAR Administration Fluticasone/Vilanterol 1 puffs 04/02/22 09:00 04/17/22 07:35 Fluticasone/Vilanterol 200/25mcg 14 Puffs/Inhaler INH 05/02/22 08:59 1 puffs DAILY SHANKAR Administration Protocol Heparin Sodium/Dextrose 25,000 units in 500 mls @ 23 mls/hr 04/16/22 10:00 04/17/22 07:07 Heparin Sodium/Dextrose IV 05/16/22 09:59 1,150 units/hr .[id number] SHANKAR 23 mls/hr Titration Protocol 1,150 UNITS/HR Levothyroxine Sodium 100 mcg 04/02/22 06:30 04/17/22 05:35 Levothyroxine Sodium 100 Mcg Tablet PO 05/02/22 06:29 100 mcg DAILYBB SHANKAR Administration Multivitamins 1 tab 04/02/22 09:00 04/17/22 07:35 Multivitamin Tab PO 05/02/22 08:59 1 tab QAM SHANKAR Administration Ondansetron HCl 4 mg 04/01/22 17:48 04/15/22 09:19 Ondansetron Inj 2 Mg/Ml 2 Ml Vial IV 05/01/22 17:47 4 mg Q6H PRN Administration Nausea Pantoprazole Sodium 40 mg 04/15/22 09:00 04/17/22 07:35 Pantoprazole 40 Mg Tab PO 05/15/22 08:59 40 mg BID SHANKAR Administration Polyethylene Glycol 17 gm 04/15/22 09:00 04/17/22 07:35 Polyethylene (Miralax) 17 Gm Pack PO 05/15/22 08:59 17 gm BID SHANKAR Administration Senna/Docusate Sodium 1 tab 04/10/22 11:00 04/17/22 07:35 Docusate Sodium/Senna 50/8.6mg Tab PO 05/10/22 10:59 1 tab BID SHANKAR Administration Simethicone 80 mg 04/10/22 21:18 04/11/22 07:43 Simethicone 80 Mg Chew PO 05/10/22 21:17 80 mg Q6H PRN Administration abdominal pain Sucralfate 1 gm 04/15/22 09:00 04/17/22 07:35 Sucralfate 1 Gm/10 Ml Udc PO 05/15/22 08:59 1 gm QID SHANKAR Administration Trazodone HCl 100 mg 04/01/22 21:00 04/16/22 20:47 Trazodone Hcl 100 Mg Tab PO 05/01/22 20:59 Not Given HS SHANKAR Vitamin D 1,000 units 04/02/22 09:00 04/17/22 07:36 Cholecalciferol 1,000 Units 25 Mcg Tab PO 05/02/22 08:59 1,000 units DAILY SHANKAR Administration NPO Date Last Intake of Fluids: 04/17/22 Time Last Intake of Fluids: 06:30 Date Last Intake of Solids: 04/16/22 Time Last Intake of Solids: 17:00 Past Medical History Medical History (Updated 04/17/22 @ 08:14 by Ainsley Junior MD) Acute thrombosis of cephalic vein Chronic venous stasis dermatitis Depression Encounter for pre-operative examination GERD (gastroesophageal reflux disease) History of broken collarbone Hypertension Hypothyroidism Kyphoscoliosis Lower extremity venous stasis Lumbar stenosis New onset atrial fibrillation Osteoporosis Paroxysmal atrial fibrillation Pneumonia Postlaminectomy syndrome of lumbosacral region Presence of intrathecal pump Sacroiliitis Scoliosis Testicular hernia history of Thoracic aortic aneurysm (TAA) Past Family History Family History Mother Colitis Brother Colitis Hypertension Sister Hypertension Father Hypertension Prostate cancer Myocardial infarction Denies family history of Ovarian cancer Coronary heart disease Breast cancer Colorectal cancer Past Surgical History Surgical History Encounter for post-sterilization vasoplasty History of appendectomy Previous back surgery S/P hernia repair Social History Smoking Status: Never smoker Hx Alcohol Use: No Hx Substance Use: No Physical Exam Vital Signs Last Vital Signs Temp 36.5 C 04/17/22 08:05 Pulse 57 L 04/17/22 08:05 Resp 18 04/17/22 08:05 BP 146/80 H 04/17/22 08:05 Pulse Ox 96 04/17/22 08:05 O2 Del Method 04/17/22 08:05 O2 Flow Rate 1 04/04/22 11:27 Testing Laboratory Results 04/16/22 05:56 04/16/22 05:56 PT 11.6 Seconds (9.0-12.0) 04/16/22 11:58 INR 1.1 (0.9-1.1) 04/16/22 11:58 APTT 97.7 Seconds (21.0-31.0) H* 04/17/22 01:13 Blood Type O Positive 04/02/22 12:57 Antibody Screen NEGATIVE 04/02/22 12:57 04/01/22 15:09 Aerobic Blood Culture - Final Blood No growth in Aerobic bottle after 5 days. Anaerobic Blood Culture - Final 04/01/22 12:45 Aerobic Blood Culture - Final Blood No growth in Aerobic bottle after 5 days. Anaerobic Blood Culture - Final No growth in Anaerobic bottle after 5 days. 04/04/22 09:16 Gram Stain - Final Sputum, Expectorated Sputum Culture - Final Light normal diana. Electrocardiogram Date: 04/07/22 Test Reason : Blood Pressure : / mmHG Vent. Rate : 069 BPM Atrial Rate : 069 BPM P-R Int : 160 ms QRS Dur : 140 ms QT Int : 496 ms P-R-T Axes : 044 026 019 degrees QTc Int : 531 ms Normal sinus rhythm Right bundle branch block Lateral infarct (cited on or before 07-APR-2022) Abnormal ECG When compared with ECG of 06-APR-2022 06:01, No significant change was found Confirmed by Felix Mckenzie ([id number]) on 04/07/2022 10:59:47 AM Chest X-Ray Date: 04/11/22 XR chest 2V PA/lateral CLINICAL HISTORY: f/u Pneumonia COMPARISON STUDY: Chest radiograph and chest CT April 01, 2022. FINDINGS: Low lung volumes are again noted. Intracanalicular electrodes are incidentally noted. There is no pneumothorax. Small right pleural effusion is present. Right basilar opacity has improved since prior chest radiograph and chest CT. There is mild left basilar opacity. Cardiomediastinal silhouette is stable when allowing for patient rotation. There is no evidence for pulmonary edema. IMPRESSION: 1. Significant improvement in right lower lobe pneumonia. Mild residual opacity. 2. Low lung volumes, unchanged. 3. Cardiomegaly. No evidence for pulmonary edema. Echocardiogram Date: 04/03/22 EF: 55-60% LV Function: normal RWMA: + none Other Findings: + atrial enlargement (mod left) Valvular Disease: + MR (mild)
--- NOTE | 2022-04-17 08:30 | History & Physical Bridge Note ---
Date of Service April 17, 2022 History & Physical Bridge Note I have examined the patient, reviewed the History & Physical and in the interval since the performance of the History & Physical I have noted the following changes of clinical significance: no changes noted Proceed with EGD. risks/benefits and procedure discussed with patient, who agrees to proceed
--- NOTE | 2022-04-17 09:11 | GI REPORT ---
Patient Name: Thom Choe Procedure Date: 04/17/2022 8:36 AM Date of : 1955 Admit Type: Inpatient Age: 66 Gender: Male Attending MD: Aaron English MD Procedure: Upper GI endoscopy Providers: Aaron English MD Referring MD: Don Cardenas Indications: Dysphagia Medicines: Monitored Anesthesia Care Complications: No immediate complications. Estimated blood loss: None. Estimated Blood Loss: Estimated blood loss: none. Procedure: Pre-Anesthesia Assessment: - Prior Anticoagulants: The patient has taken no previous anticoagulant or antiplatelet agents. - ASA Grade Assessment: II - A patient with mild systemic disease. After obtaining informed consent, the endoscope was passed under direct vision. Throughout the procedure, the patient's blood pressure, pulse, and oxygen saturations were monitored continuously. The Endoscope was introduced through the mouth, and advanced to the second part of duodenum. The upper GI endoscopy was accomplished without difficulty. The patient tolerated the procedure well. Findings: A medium-sized hiatal hernia was present. The Z-line was irregular. Biopsies were taken with a cold forceps for histology. Estimated blood loss: none. Diffuse mild inflammation characterized by erythema was found in the stomach. Biopsies were taken with a cold forceps for Helicobacter pylori testing. Estimated blood loss: none. The duodenal bulb and second portion of the duodenum were normal. Impression: - Medium-sized hiatal hernia. - Z-line irregular. Biopsied. - Gastritis. Biopsied. - Normal duodenal bulb and second portion of the duodenum. Recommendation: - Return patient to [facility] for [facility] care. - Resume previous diet today. - Await pathology results. Aaron English MD 04/17/2022 9:10:44 AM This report has been signed electronically. Note Initiated On: 04/17/2022 8:36 AM Number of Addenda: 0 I attest to the content of the Intraoperative Record and orders documented therein, exceptions below {[id number]}
[2022-04-17] MEDS ORDERED: LIDOCAINE 2% MPF LOCAL 5 ML VIAL INFIL ONE (10:05)
[2022-04-17] MEDS ORDERED: PROPOFOL IV EMULSION 10 MG/ML 20 ML VIAL IV ONE (10:05)
[2022-04-17 10:40] LABS: BUN Creatinine Ratio 18.2 (10-20); Creatinine Clr Calc Pharmacy 115.9 ml/min; Est GFR (African American) 110.4 ml/min; Est GFR (Non-African American) 95.2 ml/min; Potassium 3.8 mmol/L (3.5-5.1)
[2022-04-17 10:52] LABS: Partial Thromboplastin Ratio 1.7
[2022-04-17 10:53] LABS: Partial Thromboplastin Time 46.8 Seconds (21.0-31.0)
[2022-04-17] MEDS: HEPARIN SODIUM/DEXTROSE 25,000 UNITS/500 ML BAG IV SCH (11:13)
[2022-04-17] MEDS: ONDANSETRON INJ 2 MG/ML 2 ML VIAL IV PRN (11:13)
--- NOTE | 2022-04-17 13:07 | Anesthesiology Progress Note ---
Date of Service April 17, 2022 Anesthesia Post Procedure Vital Signs Vital Signs: Temp Pulse Pulse Resp BP Pulse Ox O2 Del Method 04/17/22 11:10 36.4 C L 59 L 16 142/80 H 99 Room Air 04/17/22 09:27 50 L 18 135/78 96 Room Air 04/17/22 08:15 Room Air 04/17/22 09:12 53 L 18 135/86 95 Room Air 04/17/22 08:57 56 L 18 134/79 94 Room Air 04/17/22 08:05 36.5 C 57 L 18 146/80 H 96 Room Air 04/17/22 07:26 36.6 C 57 L 15 148/73 H 95 Room Air 04/17/22 04:03 36.5 C 54 L 16 126/74 94 Room Air 04/16/22 22:10 53 L 04/16/22 22:00 36.6 C 56 L 16 129/74 95 Room Air 04/16/22 19:45 36.8 C 58 L 18 139/73 96 Room Air 04/16/22 15:25 36.7 C 54 L 18 136/77 96 Room Air 04/16/22 15:00 58 L Transfer of Care Handoff Completed per policy Notes Mental Status: alert / awake / arousable Patient Amnestic to Procedure: Yes Nausea / Vomiting: adequately controlled Pain: adequately controlled Airway Patency, RR, SpO2: stable & adequate BP & HR: stable & adequate Hydration State: stable & adequate Anesthetic Complications: no major complications apparent
[2022-04-17] MEDS ORDERED: WARFARIN SOD 7.5 MG TAB PO ONE (16:00)
[2022-04-17] MEDS ORDERED: WARFARIN SOD 5 MG TAB PO SCH (16:00)
[2022-04-17] MEDS: ENOXAPARIN 100 MG/1ML SYR SQ SCH (18:39)
--- NOTE | 2022-04-17 19:49 | Hospitalist Progress Note ---
Date of Service April 17, 2022 Assessment & Plan (1) Pneumonia: Plan: fully resolved. RSV + bacterial superinfection (suspected). b/l, worst location RLL. s/p ceftriaxone and doxycycline x7 days - completed. Sputum culture and blood cultures no growth o2 sats wnl. no further symptoms. serial cxr's have shown ongoing improvement. droplet isolation stopped. (2) Acute thrombosis of cephalic vein: Plan: Patient has right-sided cephalic vein thrombosis, long segment, due to u/s- guided IV. Catheter has been removed. This is concerning that he developed this because he had been on Eliquis 5mg BID since 04/03. He also has a superficial clot in his left antecubital region. b/l cephalic vein clots suggests hypercoagulable state clots occurred while on Eliquis suggesting Eliquis failure I spoke with Dr Cleary from hematology over the weekend - we both agree that Eliquis should not be resumed. He advised checking Lupus anticoagulant, anti-phospholipid ab's. Will also check homocysteine level. I spoke with Dr Noel from anticoagulation clinic - we both agree stopping heparin, changing to lovenox 1mg/kg BID bridge, and initiating coumadin is safest option. Given concomitant amiodarone use will not load with large dose - start coumadin 5mg daily. Nursing staff to teach lovenox injection technique to patient. Start lovenox tonight at 7pm. will need pharmacy check for lovenox cost - [facility] Nurse navigator aware. Of note - CT chest/abd/pelvis without obvious site of malignancy. Colonoscopy with 1 polyp, path pending. EGD today without esophageal tumor or gastric tumor but Z line irregular - biopsy pending. Refer to [facility] anticoagulation clinic at discharge with Dr Noel for coumadin management. Coumadin may be lifelong due to a.fib. (3) GERD (gastroesophageal reflux disease): Plan: daily symptoms at home. CT chest at admission showed diffuse inflammation of his esophagus (see CT chest report). he was NOT on PPI at home - PPI daily was started earlier this admission. CP episode 11/ likely GI/GERD. Trops neg x 2. EKG w/o changes. Nothing on tele. increased PPI to BID dosing; added carafate. s/p EGD today -- no esophagitis seen but Z line irregular - biopsy taken. did have gastritis. send home with PPI - probably once daily - along with a few more days of carafate. f/u with GI as outpatient due to numerous GI issues this admission (severe opiate-induced constipation, GERD/gastritis, etc). (4) New onset atrial fibrillation: Plan: paroxysmal, resolved. remains in NSR. no a.fib since. Completed amiodarone 400 Mg BID load. Converted to 200 mg daily on 04/13/22. Previously on eliquis - now stopped as noted above in #2; heparin drip to stop tonight, transitioning to lovenox bridge w/ coumadin. no AV kayla agents - had significant hypotension with beta blockers earlier this admission. (5) Ileus: Plan: colonic - 2nd to opiate-induced constipation resolved (6) Abdominal pain: Plan: LLQ etiology was uncertain despite [address] a/p except for constipation most recent CT abd/pelvis 04/11/22 -- no significant pathology seen; no colitis; no diverticulitis; no pancreatitis; no obstructing kidney stones copious stool on that CT however c diff negative s/p colonoscopy 04/14 - fair prep (event after relistor x 2 this week, golytely prep, etc) but nothing on scope to explain his pain post-colonoscopy he had NO pain thus, pain was in fact probably constipation related (7) Elevated troponin: Plan: 2nd to myocardial demand ischemia in setting of rapid a.fib earlier this admission Echocardiogram without any wall motion abnormalities and with preserved EF trop again negative x 2 despite chest pain episode on 04/15 -- thought to be GI in origin unlikely to be cardiac had negative nuclear stress test in 2019 (8) Hypertension: Plan: Continue to hold lisinopril and Lasix with currently normal blood pressure (9) Depression: Plan: Continue Lexapro 20 mg p.o. daily and trazodone 100 mg p.o. at bedtime (10) Hypothyroidism: Plan: Continue levothyroxine 100 mcg daily. TSH on admission 1.89 (11) Lumbar stenosis: Plan: Intrathecal pump, baclofen 10 mg 3 times daily. norco prn morphine prn (12) Thoracic aortic aneurysm (TAA): Plan: Noted on CT chest to be 4.5 cm Follow-up as an outpatient with ongoing surveillance (13) Gastritis: Plan: as seen on EGD today PPI daily carafate x 5 more days (14) Irregular Z line of esophagus: Plan: s/p biopsy to exclude Potts's, etc. await path Plan extensively updated at bedside today with plan of care care d/w GI care d/w anticoagulation clinical nursing professor Dr Amber Noel hopeful for d/c home tomorrow 04/18 Admission and Anticipated Discharge Date Admission Date: April 01, 2022 Subjective saw patient post-EGD was present at bedside he was able to eat lunch, but stomach was upset afterwards no vomiting we reviewed his EGD results in detail I reviewed with him recommendations from hematology and anticoagulation physician - stopping IV heparin later tonight, transitioning to lovenox 1mg/kg BID + coumadin we discussed options for INR checks - he is willing to go to coumadin clinic at [facility] with Dr Noel he is agreeable to lovenox injections no new issues tele overnight wnl he reports that his mother recently - she had dementia and lived at [facility] - he was hospitalized when the occurred Review of Systems Review of Systems: gen - energy good, ambulating, eating cv - no cp pulm - no dyspnea; minimal cough GI - no N/V Physical Exam Physical Exam: gen - NAD, looks good, sitting in chair mouth - MMM neck - no JVD heart - RRR, s1 s2, no murmur lungs - CTA B/l, minimally decreased BS right base abd - soft, NT, ND, BS+; palpable intrathecal pump right side of abdomen ext - <1+ edema b/l LEs; TEDs hose in place; right upper arm swollen, palpable cord in right arm - slightly better than previous; palpable cord left AC region improved; pulses 2+ b/l feet psych - a/o x 3 vasc - 3-4cm superficial phlebitis of left antecubital region unchanged; no warmth, just palpable cord/clot; no redness; right arm is grossly swollen mainly upper portion of arm-- modestly improved Results & Data Results & Data ([facility]) Vital Signs (Past 12 Hours) Vital Signs Temp Pulse Pulse Resp BP Pulse Ox O2 Del Method 04/17/22 18:02 57 L 04/17/22 15:17 36.5 C 57 L 18 134/67 96 Room Air 04/17/22 11:10 36.4 C L 59 L 16 142/80 H 99 Room Air 04/17/22 09:27 50 L 18 135/78 96 Room Air 04/17/22 08:15 Room Air 04/17/22 09:12 53 L 18 135/86 95 Room Air 04/17/22 08:57 56 L 18 134/79 94 Room Air 04/17/22 08:05 36.5 C 57 L 18 146/80 H 96 Room Air Laboratory Results Laboratory Results - last 24 hr 04/17/22 04/17/22 04/17/22 01:13 10:01 10:02 APTT 97.7 H* 46.8 H* PTT Ratio 3.6 1.7 Lupus Anticoagulant Lupus Anticoag aPTT Dil Noel Viper Venom Sodium 139 Potassium 3.8 Chloride 101 Carbon Dioxide 32 Anion Gap 6 BUN 14 Creatinine 0.77 Est Cr Clr Drug Dosing 115.9 Est GFR ( Amer) 110.4 Est GFR (Non-Af Amer) 95.2 BUN/Creatinine Ratio 18.2 Glucose 89 Calcium 9.0 Homocysteine Anti-Cardiolipin IgG Ab Anti-Cardiolipin IgA Ab Anti-Cardiolipin IgM Ab 04/17/22 04/17/22 10:02 10:02 APTT PTT Ratio Lupus Anticoagulant Pending Lupus Anticoag aPTT Pending Dil Noel Viper Venom Pending Sodium Potassium Chloride Carbon Dioxide Anion Gap BUN Creatinine Est Cr Clr Drug Dosing Est GFR ( Amer) Est GFR (Non-Af Amer) BUN/Creatinine Ratio Glucose Calcium Homocysteine Pending Anti-Cardiolipin IgG Ab Pending Anti-Cardiolipin IgA Ab Pending Anti-Cardiolipin IgM Ab Pending PG Care Time/CCT Total # of Minutes Spent Total Time Spent with Patient: Total time spent is greater than 50% in coordination of care (as documented) at patient's floor/unit and/or counseling patient: Coding Level of Care Code 11948 Subseq Hosp Care Lvl 3 Diagnoses Pneumonia J18.9 Acute thrombosis of cephalic vein I82.619 GERD (gastroesophageal reflux disease) K21.9 New onset atrial fibrillation I48.91 Ileus K56.7 Abdominal pain R10.9 Elevated troponin R77.8 Hypertension I10 Depression F32.9 Hypothyroidism E03.9 Lumbar stenosis M48.061 Thoracic aortic aneurysm (TAA) I71.20 Gastritis K29.70 Irregular Z line of esophagus K22.9
[2022-04-17] MEDS: traZODone HCL 100 MG TAB PO SCH (21:29)
[2022-04-18] MEDS: LEVOTHYROXINE SODIUM 100 MCG TABLET PO SCH (05:41)
[2022-04-18] MEDS: ENOXAPARIN 100 MG/1ML SYR SQ SCH (06:13)
[2022-04-18 07:18] LABS: Basophils # (auto) 0.03 K/uL (0-0.2); Basophils % (auto) 0.7 %; Eosinophils # (auto) 0.12 K/uL (0-0.50); Eosinophils % (auto) 2.7 %; Hematocrit (blood only) 33.9 % (40.1-51.0); Hemoglobin 11.5 g/dl (14.0-18.0); Immature Granulocytes # (auto) 0.02 K/uL (0.00-0.02); Immature Granulocytes % (auto) 0.4 %; Lymphocytes # (auto) 1.02 K/uL (1.2-3.4); Lymphocytes % (auto) 22.7 %; Mean Corpuscular Hemoglobin 31.1 pg (25.0-34.0); Mean Corpuscular Hgb Conc 33.9 g/dL (32.0-36.0); Mean Corpuscular Volume 91.6 fL (80.0-100.0); Monocytes # (auto) 0.42 K/uL (0.24-0.82); Monocytes % (auto) 9.4 %; Neutrophils # (auto) 2.88 K/uL (1.4-6.5); Neutrophils % (auto) 64.1 %; Platelet Count 202 K/uL (130-400); RDW Coefficient of Variation 14.3 % (11.5-14.5); RDW Standard Deviation 48.2 fL (36.4-46.3); White Blood Count 4.49 K/ul (4.8-10.8)
[2022-04-18 07:59] LABS: INR 1.1 (0.9-1.1); Partial Thromboplastin Ratio 1.6; Prothrombin Time 11.9 Seconds (9.0-12.0)
[2022-04-18 08:03] LABS: Partial Thromboplastin Time 45.3 Seconds (21.0-31.0)
[2022-04-18] MEDS: DOCUSATE SODIUM/SENNA 50/8.6MG TAB PO SCH (08:12)
[2022-04-18] MEDS: PANTOprazole 40 MG TAB PO SCH (08:13)
[2022-04-18] MEDS: ESCITALOPRAM OXALATE 20 MG TAB PO SCH (08:13)
[2022-04-18] MEDS: MULTIVITAMIN TAB PO SCH (08:13)
[2022-04-18] MEDS: CYANOCOBALAMIN (B-12) 500 MCG TABLET PO SCH (08:13)
[2022-04-18] MEDS: CHOLECALCIFEROL 1,000 UNITS 25 MCG TAB PO SCH (08:13)
[2022-04-18] MEDS: AMIODARONE 200 MG TAB PO SCH (08:13)
[2022-04-18] MEDS: SUCRALFATE 1 GM/10 ML UDC PO SCH (08:13)
[2022-04-18] MEDS: FLUTICASONE/VILANTEROL 200/25MCG 14 PUFFS/INHALER INH SCH (08:14)
[2022-04-18] MEDS: POLYETHYLENE (MIRALAX) 17 GM PACK PO SCH (08:14)
[2022-04-18] MEDS: BACLOFEN 10 MG TAB PO SCH (08:20)
--- NOTE | 2022-04-18 11:57 | Discharge Summary ---
Date of Service April 18, 2022 Admission HPI Per Admitting Provider Thom Choe is a 66-year-old male with past medical history significant for hypertension, prediabetes, BPH, hypothyroidism, depression, insomnia, chronic back pain with intrathecal pump who presents today with shortness of breath for the past 4 days associated with chest tightness, congestion, and cough. He has been feeling well at home and has not been able to eat much and has been sleeping majority of the day. His shortness of breath has been ongoing for years at this point, however has been acutely worse over the past week and he is more winded with activities he is typically able to tolerate. Had chest pain for 4 days, but was associated with full body aches so he did not think much of it until today when his chest discomfort got significantly worse and his shortness of breath was too difficult to deal with at home. He states his chest pain was an 8/10 on presentation, now 5/10. Patient presented with initial HR in the 160s, BP 82/60, but was alert and conversational. >95% on 3 L NC, afebrile. He was in A. fib with HR [id number], and given 5 mg IV metoprolol before being started on an amiodarone drip with bolus. Also repleted magnesium with 1 g IV mag. BP improved 117/71, HR 110s, patient remained stable throughout. He was also found to have an elevated troponin at 57.3. The case was discussed with cardiology, who recommended continuing amiodarone given his hypotension, as well as starting on heparin drip given new onset A. fib and elevated troponin with chest pain. Labs notable for magnesium 1.5. TSH is within normal limits. T bili mildly elevated at 1.4. His creatinine is somewhat elevated, 1.03 with a baseline 0.60.7. No leukocytosis or anemia, coag panel within normal limits, no electrolyte disturbances other than magnesium. His CXR shows cardiomegaly without overt pulmonary edema, mild bibasilar opacities favor atelectasis. Chest CTA with cardiomegaly, no pulmonary emboli noted. Large anterior stated masses throughout the right lung most pronounced within the right lower lobe compatible with pneumonia. There is mediastinal and hilar lymphadenopathy likely reactive. Left nephrolithiasis. Diffuse esophageal wall thickening. Principal Diagnosis RSV, Pneumonia, Upper extremity venous thromboses, Severe constipation, gastritis Discharge Exam Constitutional WD/WN, vitals as above Eyes + anicteric sclerae Neck trachea midline, no thyromegaly Respiratory normal respiratory effort, lungs clear to auscultation Cardiovascular RRR, no murmur, no edema Chest (Breasts) Chest: normal inspection of chest Gastrointestinal (Abdomen) normal bowel sounds, soft, nontender, no hepatosplenomegaly Musculoskeletal Extremities: + extremities abnormal to inspection (RUE edema), no cyanosis and no clubbing Skin no rashes, warm and dry (except chronic venous stasis legs bilat) Neurologic moves all extremities and awake; no focal motor deficits Psychiatric A+Ox3, euthymic affect Discharge Data Allergies Allergy/AdvReac Type Severity Reaction Status Date / Time Penicillins Allergy Unknown Rash Verified 04/17/22 08:04 sumatriptan [From Imitrex] Allergy Rash Verified 04/17/22 08:04 Consultations 04/01/22 15:05 ED Decision to Admit Stat 04/01/22 17:48 Consult Cardiology Routine 04/04/22 16:10 Consult Gastroenterology Routine Procedures Performed Operation Date: 04/14/22 16:30 Actual Procedures p Colonoscopy Polypectomy - Garth French Case, DO Operation Date: 04/17/22 16:30 Actual Procedures p EGD Biopsy Cytology - Aaron English MD Ordered Studies 04/01/22 13:48 CT angio chest PE protocol Stat 04/02/22 12:52 CT Abd and Pelvis [CT abd pelvis oral and IV con] Stat 04/11/22 13:38 CT Abd and Pelvis [CT abd pelvis oral and IV con] Stat 04/15/22 US venous doppler UE RT Routine ECHO Hospital Course (1) Pneumonia: fully resolved. RSV + bacterial superinfection (suspected). b/l, worst location RLL. s/p ceftriaxone and doxycycline x7 days - completed. Sputum culture and blood cultures no growth o2 sats wnl. no further symptoms. serial cxr's have shown ongoing improvement. droplet isolation stopped. follow CXR in 4-6 weeks to ensure complete resolution (2) Acute thrombosis of cephalic vein: Patient has right-sided cephalic vein thrombosis, long segment, due to u/s- guided IV. Catheter has been removed. This is concerning that he developed this because he had been on Eliquis 5mg BID since 04/03. He also has a superficial clot in his left antecubital region. b/l cephalic vein clots suggests hypercoagulable state clots occurred while on Eliquis suggesting Eliquis failure Dr. Cardenas spoke with Dr Cleary from hematology-agree that Eliquis should not be resumed. He advised checking Lupus anticoagulant, anti-phospholipid ab's. Will also check homocysteine level. All pending at time of discharge Dr Noel from anticoagulation clinic - recommended stopping heparin, changed to lovenox 1mg/kg BID bridge, and initiating coumadin is safest option. Given concomitant amiodarone use will not load with large dose - start coumadin 5mg daily. Nursing staff to teach lovenox injection technique to patient. -continue coumadin and Lovenox bridge, f/u anticoag clinic arranged Of note - CT chest/abd/pelvis without obvious site of malignancy. Colonoscopy with 1 polyp, path pending. EGD without esophageal tumor or gastric tumor but Z line irregular - biopsy pending. Refer to [facility] anticoagulation clinic at discharge with Dr Noel for coumadin management. Coumadin may be lifelong due to a.fib. (3) GERD (gastroesophageal reflux disease): daily symptoms at home. CT chest at admission showed diffuse inflammation of his esophagus (see CT chest report). he was NOT on PPI at home - PPI daily was started earlier this admission. CP episode 04/15 likely GI/GERD. Trops neg x 2. EKG w/o changes. Nothing on tele. increased PPI to BID dosing, treated with carafate and course complete s/p EGD today -- no esophagitis seen but Z line irregular - biopsy taken. did have gastritis. send home with PPI f/u with GI as outpatient due to numerous GI issues this admission (severe opiate-induced constipation, GERD/gastritis, etc) as desired (4) New onset atrial fibrillation: paroxysmal, resolved. remains in NSR. no a.fib since. Completed amiodarone 400 Mg BID load. Converted to 200 mg daily on 04/13/22. Previously on eliquis - now stopped as noted above in #2; transitioning to lovenox bridge w/ coumadin. no AV kayla agents - had significant hypotension with beta blockers earlier this admission. -dcd lisinopril due to hypotension and will not restart -f/u with Cardiology as outpt (5) Ileus: colonic - 2nd to opiate-induced constipation resolved -continue on Miralax bid, senna/docusate bid on discharge (6) Abdominal pain: LLQ etiology was uncertain despite [address] a/p except for constipation most recent CT abd/pelvis 04/11/22 -- no significant pathology seen; no colitis; no diverticulitis; no pancreatitis; no obstructing kidney stones copious stool on that CT however c diff negative s/p colonoscopy 04/14 - fair prep (event after relistor x 2 this week, golytely prep, etc) but nothing on scope to explain his pain post-colonoscopy he had NO pain thus, pain was in fact probably constipation related (7) Elevated troponin: 2nd to myocardial demand ischemia in setting of rapid a.fib earlier this admission Echocardiogram without any wall motion abnormalities and with preserved EF trop again negative x 2 despite chest pain episode on 04/15 -- thought to be GI in origin unlikely to be cardiac had negative nuclear stress test in 2019 (8) Hypertension: Continue to hold lisinopril but can restart Lasix (9) Depression: Continue Lexapro 20 mg p.o. daily and trazodone 100 mg p.o. at bedtime (10) Hypothyroidism: Continue levothyroxine 100 mcg daily. TSH on admission 1.89 (11) Lumbar stenosis: Intrathecal pump, baclofen 10 mg 3 times daily. norco prn (12) Thoracic aortic aneurysm (TAA): Noted on CT chest to be 4.5 cm Follow-up as an outpatient with ongoing surveillance (13) Gastritis: as seen on EGD PPI bid (14) Irregular Z line of esophagus: s/p biopsy to exclude Potts's, etc. await path Plan Dispo-dc to home today, no services desired Discussed acre with 2 daughters at bedside, currently having a colonoscopy Total Time Total Time Spent Total Time Spent (In Minutes): 40 min Discharge Plan Discharge Items Patient Disposition: Home - Self-Care Reason For Visit: NEW ONSET A. FIB, PNEUMONIA Discharge Diagnosis: New onset atrial fibrillation, Pneumonia, RSV, Abdominal pain from severe constipation, gastritis, upper extremity venous thrombosis Condition on Discharge: Good Activity: As commented below Bathing: No limitations Exercise/Sports: Gradually increase as tolerated Weightbearing: Full weightbearing Non-emergency contact: Primary Care Provider and [employer]visor [employer] Call non-emergency contact if: you have any medication questions and your symptoms worsen Follow-up/Referrals: Felix Reyes MD [Primary Care Provider] - 04/24/22 11:30 am Johnny Sebastian MD [Physician] - (Follow up within 2-3 weeks.) Amber Noel MD, PhD [Pathologist] - (An appointment for the anticoagulation clinic will be made for you. ) Diet: Heart Healthy Addtl Attending Provider Instructions: You were admitted with RSV and pneumonia and completed antibiotics for this with improvement. You also had severe abdominal pains from both gastritis and from constipation. You had an EGD and a colonoscopy and no other significant findings were noted. It is important to keep up with a good bowel regimen to prevent this from happening again. You should also take the antacid Protonix for the gastritis. The biopsies from the EGD and colonoscopy can be followed up on at your PCP follow up appointment. For the rapid irregular heart rhythm, you were started on amiodarone and a blood thinner. Please continue the shots of Lovenox twice a day in addition to the daily Coumadin pill until your coumadin level (PT/INR) gets to the right level. You will have an appointment with the Anticoagulation clinic to check your coumadin levels on a rgular basis. Please follow up with the Supervisor [employer] within 2-3 weeks. Pending Studies at Discharge: Yes Studies:: Homocysteine level, anticardiolipin antibodies, lupus anticoagulant, biopsy results Stand-Alone Forms: [facility], Smoking Cessation Medications and DC Order Prescriptions: New enoxaparin 100 mg/mL Syringe 100 mg subcut Q12H 5 Days Qty: 10 0RF warfarin 5 mg Tablet 5 mg PO DAILY@1600 Qty: 30 0RF amiodarone 200 mg Tablet 200 mg PO DAILY Qty: 30 0RF pantoprazole 40 mg Tablet,Delayed Release (Dr/Ec) 40 mg PO BID Qty: 60 0RF sennosides-docusate sodium [Senokot-S] 8.6-50 mg Tablet 1 tab PO BID Qty: 60 0RF cyanocobalamin (vitamin B-12) 1,000 mcg capsule 1,000 mcg PO DAILY Qty: 30 0RF Rx Instructions: OTC Continued multivitamin tablet 1 tab PO DAILY hydrocodone-acetaminophen 5-325 mg tablet 1 tab PO BID PRN (Reason: break through pain) Qty: 60 0RF Rx Instructions: ONGOING THERAPY escitalopram oxalate [Lexapro] 20 mg tablet 20 mg PO DAILY Narcan 4 mg/actuation spray,non-aerosol 4 mg intranasal Q2M PRN (Reason: opioid overdose) Qty: 2 0RF Rx Instructions: spray 1 dose into ONE nostril; alternate nostrils w each dose until help arrives baclofen 10 mg tablet 10 mg PO TID Qty: 30 0RF furosemide 40 mg tablet 40 mg PO DAILY Qty: 90 3RF trazodone 50 mg tablet 100 mg PO HS 90 Days Qty: 180 1RF levothyroxine 100 mcg tablet 100 mcg PO QAM Qty: 90 3RF fluticasone propion-salmeterol [Wixela Inhub] 500-50 mcg/dose blister with device 1 inh inhalation BID albuterol sulfate [ProAir HFA] 90 mcg/actuation HFA aerosol inhaler 2 puff inhalation Q6H PRN (Reason: Shortness Of Breath) cholecalciferol (vitamin D3) 1,000 unit (25 mcg) tablet 1,000 unit PO DAILY Changed polyethylene glycol 3350 8.5 gram powder in packet 17 gm PO BID Qty: 72 0RF Discontinued lisinopril 5 mg tablet 5 mg PO DAILY Qty: 90 3RF Discharge Orders: Discharge Order (Routine); Ordered 04/18/22 Ordered By: Lilo Snider Admission Data Admit Date/Time: 04/01/22 15:29 Attending Provider: Lilo Snider Admit Provider: Franklin العراقي Primary Care Provider: Felix Reyes Other Providers: Franklin العراقي ; Johnny Sebastian ; Aaron English ; Don Le Other Interventions: Discharge Summary Assessment (RN) Last Done: 04/17/22 08:59 Coding Level of Care Code D/C DAY MANAGEMENT >30 MINS Diagnoses Pneumonia J18.9 Acute thrombosis of cephalic vein I82.619 GERD (gastroesophageal reflux disease) K21.9 New onset atrial fibrillation I48.91 Ileus K56.7 Abdominal pain R10.9 Elevated troponin R77.8 Hypertension I10 Depression F32.9 Hypothyroidism E03.9 Lumbar stenosis M48.061 Thoracic aortic aneurysm (TAA) I71.20 Gastritis K29.70 Irregular Z line of esophagus K22.9
[2022-04-18] MEDS ORDERED: LOVENOX TEACHING KIT ONE (12:30)
[2022-04-22 02:06] LABS: Anti Cardiolipin Ab IgG <2.0 GPL-U/mL; Anti Cardiolipin Ab IgM <2.0 MPL-U/mL; Anti-Cardiolipin Ab IgA <2.0 APL-U/mL
[2022-04-24 09:21] LABS: Lupus Hex Phase (Rflxdonotord) Weak Positive (Negative); Thrombin Time (reflex only) 27 sec (13-19)
== END 2022-04-18 14:40 | disposition home or self-care (01) | DRG 194 ==
LOC: ED 12:26 → SUATTDRO 15:29 → 2S 15:29 → 2W 04-05 09:51

== ENCOUNTER 2022-04-23 14:58 | Inpatient (IN) ==
[2022-04-23 15:32] LABS: Basophils # (auto) 0.02 K/uL (0-0.2); Basophils % (auto) 0.8 %; Eosinophils # (auto) 0.02 K/uL (0-0.50); Eosinophils % (auto) 0.8 %; Hematocrit (blood only) 39.4 % (40.1-51.0); Hemoglobin 13.3 g/dl (14.0-18.0); Immature Granulocytes # (auto) 0.01 K/uL (0.00-0.02); Immature Granulocytes % (auto) 0.4 %; Lymphocytes # (auto) 0.58 K/uL (1.2-3.4); Lymphocytes % (auto) 22.3 %; Mean Corpuscular Hemoglobin 31.3 pg (25.0-34.0); Mean Corpuscular Hgb Conc 33.8 g/dL (32.0-36.0); Mean Corpuscular Volume 92.7 fL (80.0-100.0); Mean Platelet Volume 9.9 fL (9.4-12.4); Monocytes # (auto) 0.63 K/uL (0.24-0.82); Monocytes % (auto) 24.2 %; Neutrophils # (auto) 1.34 K/uL (1.4-6.5); Neutrophils % (auto) 51.5 %; Platelet Count 181 K/uL (130-400); RDW Standard Deviation 51.2 fL (36.4-46.3); Red Blood Count 4.25 M/uL (4.63-6.08)
--- NOTE | 2022-04-23 15:37 | XRay Report ---
XR chest 1V portable HISTORY: Shortness of breath. COMPARISON: Chest 04/15/2022. FINDINGS: No pneumothorax. There are low lung volumes. The heart remains mildly enlarged. There are b ibasilar linear densities consistent with subsegmental atelectasis. This remains unchanged. No new fo morris lung consolidations to suggest a pneumonia. No evidence for pulmonary edema. Spinal stimulator le ads again noted. IMPRESSION: No change in bibasilar linear densities. This favors atelectasis. A pneumonia could also have a simil ar appearance in the appropriate clinical setting. ACT 112: Negative or not required by law. Electronically signed by: Darian Wiseman M.D. 04/23/2022 3:34 PM
--- NOTE | 2022-04-23 15:56 | Emergency Department Note ---
Impression & Plan [place] (dyspnea on exertion), Abdominal pain, Hematuria, Chest pain ED Provider Note NAME: SHRUTHI CUEVA AGE: 66 SEX: M : 1955 ARRIVES VIA: Walk-In INFORMANT: Patient, the patient's family member ED PROVIDER(S): Eduardo Cummins DO CHIEF COMPLAINT: Chest pain HPI: The patient is a 66-year-old male who presented to the emergency department for an evaluation of chest pain. The patient describes chest pain. He also describes a cough. He states the chest pain began last night. He was recently admitted to our facility for atrial fibrillation. He was started on multiple new medications including warfarin. The patient states he has been compliant with his outpatient medications. He also notices abdominal pain. He states the abdominal pain is left-sided. He notices no vomiting. He notices no black or bloody bowel moods. He states he also has congestion. He notices more of a sore throat congestion. The patient was in our facility recently and discharged Sunday. He returns emergency department today because of ongoing symptoms. He has a follow-up appoint with his doctor this week. The patient notices no hemoptysis. ROS: See above HPI for pertinent positives & negatives. A total of 10 systems reviewed and were otherwise negative. PAST MEDICAL HISTORY: See Below PAST SURGICAL HISTORY: See Below FAMILY HISTORY: See Below SOCIAL HISTORY: See Below HOME MEDICATIONS: See Below ALLERGIES: See Below VITALS: See Below PHYSICAL EXAMINATION: GENERAL: Patient is awake alert in no acute distress patient is resting comfortably and showing no signs of anxiety EYES: The conjunctivae are clear. The pupils are round and reactive. EARS, NOSE, MOUTH AND THROAT: The nose is without any evidence of any deformity. NECK: The neck is nontender and supple. RESPIRATORY: Manage breath sounds are noted at both bases. There is no tachypnea or conversational dyspnea. CARDIOVASCULAR: Regular rate and rhythm noted there no murmurs rubs or gallops normal S1 normal S2. GASTROINTESTINAL: The abdomen is soft and nondistended. There is no guarding or rigidity. MUSCULOSKELETAL/EXTREMITIES: There is no evidence of gross deformity full range of motion is noted in the hips and shoulders. SKIN: Venous stasis changes are noted. There is pedal edema bilaterally. Skin is warm and dry. NEUROLOGIC: Patient is awake alert and oriented x3. MEDICAL DECISION MAKING: The patient is a 66-year-old male who presented to the emergency department for an evaluation of shortness of breath chest pain and abdominal pain. The patient was recently discharged from our facility. He was diagnosed this week with atrial fibrillation. He was started on new medications. The patient did not have an acute surgical abdomen on physical exam. I discussed the patient's laboratory and radiographic studies with him. He was able to ambulate but had significant shortness of breath while doing so. The patient may have some degree of decompensation after his admission. He is not comfortable going home. He states has been compliant with his medications and appears to be on all the appropriate medications for his medical conditions. For this reason I will discuss his case with the on-call [facility]. Triage Nursing notes reviewed. Prior medical records reviewed Vital Signs: reviewed and remarkable for tachypnea and tachycardia. Differential diagnosis: Cardiac ischemia, aortic dissection, pulmonary embolism, pneumothorax, pneumonia, pericarditis, myocarditis, esophageal rupture, GERD, cholecystitis, pancreatitis, musculoskeletal, as well as other pathologies. ER treatment provided: See below Diagnostics interpreted by me: ECG: EKG was obtained in the emergency department. My interpretation is normal sinus rhythm at 80 bpm. There were no PVCs noted. Right bundle-branch block pattern was noted. This was compared to a tracing from April 15, 2022. No changes were noted. Cardiac Monitoring: An order was placed for continuous cardiac monitoring. The monitor shows a rate of 92 bpm with sinus rhythm. Laboratory studies: As stated above and show below. Imaging studies: See below Consultation(s): I discussed this case with Dr. Camarena who is on-call for the [facility] group. 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 with INR goal of 2.0-3.0 Lower extremity venous stasis Lumbar stenosis New onset atrial fibrillation Osteoporosis Paroxysmal atrial fibrillation Paroxysmal atrial fibrillation Pneumonia Postlaminectomy syndrome of lumbosacral region Presence of intrathecal pump Sacroiliitis Scoliosis Testicular hernia history of Thoracic aortic aneurysm (TAA) Surgical History Encounter for post-sterilization vasoplasty History of appendectomy Previous back surgery S/P hernia repair Family History Mother Colitis Brother Colitis Hypertension Sister Hypertension Father Hypertension Prostate cancer Myocardial infarction Denies family history of Ovarian cancer Coronary heart disease Breast cancer Colorectal cancer Social History Smoking Status: Never smoker Second Hand Exposure: No; Hx Alcohol Use: No Hx Substance Use: No Preferred Language: Belarusian Communication Ability: Effective Visual Impairment: Limited Hearing Ability: Normal Real Estate Representative Required: No Beliefs That Will Affect Care: Temple marital status: Current Living Situation: Spouse current occupational status: disabled Feels Safe at Home: Yes Childhood Exposure to Second-Hand Smoke: No caffeine: Yes Dental Care, Regularly: Yes Physical Activity Frequency: Daily Seatbelt Use: always Sunscreen Use: Yes Assistive Devices: Cane, Scooter/Electric Scooter and Walker Allergies Allergies Allergy/AdvReac Type Severity Reaction Status Date / Time Penicillins Allergy Unknown Rash Verified 04/23/22 15:38 sumatriptan [From Imitrex] Allergy Rash Verified 04/23/22 15:38 Home Meds Home Medications Medication Instructions Recorded Confirmed multivitamin 1 tab PO DAILY 05/17/18 04/23/22 cholecalciferol (vitamin D3) 25 1,000 unit PO DAILY 01/28/19 04/23/22 mcg (1,000 unit) tablet albuterol sulfate 90 mcg/actuation 2 puff inhalation Q6H PRN 09/29/21 04/23/22 aerosol inhaler (ProAir HFA) Shortness Of Breath fluticasone 500 mcg-salmeterol 50 1 inh inhalation BID 09/29/21 04/23/22 mcg/dose blistr powdr for inhalation (Wixela Inhub) escitalopram oxalate 20 mg tablet 20 mg PO DAILY 02/02/22 04/23/22 (Lexapro) Previous Rx's Medication Instructions Recorded furosemide 40 mg tablet 40 mg PO DAILY #90 tabs 05/24/21 naloxone 4 mg/actuation nasal 4 mg intranasal Q2M PRN opioid 07/21/21 spray (Narcan) overdose #2 ea baclofen 10 mg tablet 10 mg PO TID #30 tabs 10/27/21 trazodone 50 mg tablet 100 mg PO HS 90 days #180 tabs 01/26/22 hydrocodone 5 mg-acetaminophen 325 1 tab PO BID PRN break through 02/02/22 mg tablet pain #60 tabs levothyroxine 100 mcg tablet 100 mcg PO QAM #90 tabs 02/20/22 amiodarone 200 mg tablet 200 mg PO DAILY #30 tabs 04/18/22 cyanocobalamin (vitamin B-12) 1,000 mcg PO DAILY #30 caps 04/18/22 1,000 mcg capsule pantoprazole 40 mg tablet,delayed 40 mg PO BID #60 tabs 04/18/22 release polyethylene glycol 3350 8.5 gram 17 gm PO BID #72 ea 04/18/22 oral powder packet sennosides 8.6 mg-docusate sodium 1 tab PO BID #60 tabs 04/18/22 50 mg tablet (Senokot-S) warfarin 5 mg tablet 5 mg PO DAILY@1600 #30 tabs 04/18/22 Results & Data (ED) Vital Signs Vital Signs - 24 hr 04/23/22 15:02 04/23/22 15:02 04/23/22 15:22 Temperature 37.3 C Temperature Source Oral Pulse Rate 87 Pulse Rate [Exercises] Pulse Rate [Recovery] Pulse Rate [Resting] Pulse Rate from SpO2 Sensor Pulse Rhythm Regular Pulse Strength Normal Respiratory Rate 24 Respiratory Rate [Exercises] Respiratory Rate [Recovery] Respiratory Rate [Resting] Respiratory Effort / Characteristics Labored Labored Respiratory Pattern Regular Blood Pressure 125/76 Blood Pressure Mean 92 Blood Pressure Position Sitting Pulse Oximetry 98 96 Pulse Oximetry [Exercises] Pulse Oximetry [Recovery] Pulse Oximetry [Resting] Oxygen Delivery Method Room Air Room Air Sepsis Recent Fever Within 48 Hours No Sepsis New/Unexplained Change in Mental Status No Sepsis Action Taken by Nursing No Action Required 04/23/22 15:07 04/23/22 15:07 04/23/22 15:32 Temperature Temperature Source Pulse Rate 80 Pulse Rate [Exercises] Pulse Rate [Recovery] Pulse Rate [Resting] Pulse Rate from SpO2 Sensor Pulse Rhythm Pulse Strength Respiratory Rate 18 Respiratory Rate [Exercises] Respiratory Rate [Recovery] Respiratory Rate [Resting] Respiratory Effort / Characteristics Respiratory Pattern Blood Pressure Blood Pressure Mean Blood Pressure Position Pulse Oximetry 97 97 97 Pulse Oximetry [Exercises] Pulse Oximetry [Recovery] Pulse Oximetry [Resting] Oxygen Delivery Method Room Air Room Air Sepsis Recent Fever Within 48 Hours Sepsis New/Unexplained Change in Mental Status Sepsis Action Taken by Nursing 04/23/22 16:00 04/23/22 16:27 04/23/22 16:59 Temperature Temperature Source Pulse Rate 71 75 Pulse Rate [Exercises] Pulse Rate [Recovery] Pulse Rate [Resting] Pulse Rate from SpO2 Sensor Pulse Rhythm Pulse Strength Respiratory Rate Respiratory Rate [Exercises] Respiratory Rate [Recovery] Respiratory Rate [Resting] Respiratory Effort / Characteristics Respiratory Pattern Blood Pressure 138/64 Blood Pressure Mean 88 Blood Pressure Position Pulse Oximetry Pulse Oximetry [Exercises] Pulse Oximetry [Recovery] Pulse Oximetry [Resting] Oxygen Delivery Method Sepsis Recent Fever Within 48 Hours Sepsis New/Unexplained Change in Mental Status Sepsis Action Taken by Nursing 04/23/22 17:00 04/23/22 17:02 04/23/22 17:30 Temperature Temperature Source Pulse Rate Pulse Rate [Exercises] Pulse Rate [Recovery] Pulse Rate [Resting] Pulse Rate from SpO2 Sensor 73 Pulse Rhythm Pulse Strength Respiratory Rate Respiratory Rate [Exercises] Respiratory Rate [Recovery] Respiratory Rate [Resting] Respiratory Effort / Characteristics Respiratory Pattern Blood Pressure 126/79 128/83 Blood Pressure Mean 94 98 Blood Pressure Position Pulse Oximetry 96 Pulse Oximetry [Exercises] Pulse Oximetry [Recovery] Pulse Oximetry [Resting] Oxygen Delivery Method Sepsis Recent Fever Within 48 Hours Sepsis New/Unexplained Change in Mental Status Sepsis Action Taken by Nursing 04/23/22 18:04 04/23/22 18:17 Temperature Temperature Source Pulse Rate Pulse Rate [Exercises] 92 H Pulse Rate [Recovery] 90 Pulse Rate [Resting] 85 Pulse Rate from SpO2 Sensor Pulse Rhythm Pulse Strength Respiratory Rate Respiratory Rate [Exercises] 26 H Respiratory Rate [Recovery] 24 Respiratory Rate [Resting] 20 Respiratory Effort / Characteristics Respiratory Pattern Blood Pressure Blood Pressure Mean Blood Pressure Position Pulse Oximetry 97 Pulse Oximetry [Exercises] 96 Pulse Oximetry [Recovery] 97 Pulse Oximetry [Resting] 97 Oxygen Delivery Method Room Air Sepsis Recent Fever Within 48 Hours Sepsis New/Unexplained Change in Mental Status Sepsis Action Taken by Detention Medications Current Medication List: was personally reviewed by me Laboratory Data Attestation: I reviewed the patient's lab results. Result diagrams: 04/23/22 15:25 04/23/22 15:25 Lab Results 04/23/22 04/23/22 04/23/22 Range/Units 15:25 15:25 15:25 WBC 2.60 L (4.8-10.8) K/ul RBC 4.25 L (4.63-6.08) M/uL Hgb 13.3 L (14.0-18.0) g/dl Hct 39.4 L (40.1-51.0) % MCV 92.7 (80.0-100.0) fL MCH 31.3 (25.0-34.0) pg MCHC 33.8 (32.0-36.0) g/dL RDW Std Deviation 51.2 H (36.4-46.3) fL RDW Coeff of Kj 15.0 H (11.5-14.5) % Plt Count 181 (130-400) K/uL MPV 9.9 (9.4-12.4) fL Immature Gran % (Auto) 0.4 % Neut % (Auto) 51.5 % Lymph % (Auto) 22.3 % [place] % (Auto) 24.2 % Eos % (Auto) 0.8 % Baso % (Auto) 0.8 % Neut # (Auto) 1.34 L (1.4-6.5) K/uL Lymph # (Auto) 0.58 L (1.2-3.4) K/uL [place] # (Auto) 0.63 (0.24-0.82) K/uL Eos # (Auto) 0.02 (0-0.50) K/uL Baso # (Auto) 0.02 (0-0.2) K/uL Immature Gran # (Auto) 0.01 (0.00-0.02) K/uL PT Cancelled INR Cancelled APTT Cancelled PTT Ratio Cancelled Sodium 139 (136-145) mmol/L Potassium 3.4 L (3.5-5.1) mmol/L Chloride 102 (98-107) mmol/L Carbon Dioxide 30 (21-32) mmol/L Anion Gap 7 (3-11) BUN 9 (6-23) mg/dl Creatinine 0.62 (0.6-1.4) mg/dl Est Cr Clr Drug Dosing Not Reportable Est GFR ( Amer) 120.7 ml/min Est GFR (Non-Af Amer) 104.1 ml/min BUN/Creatinine Ratio 14.5 (10-20) Glucose 93 (70-99(Fasting)) mg/dl Calcium 8.9 (8.5-10.1) mg/dl Magnesium 1.6 L (1.7-2.4) mg/dl Total Bilirubin 0.6 (0.2-1.0) mg/dl AST 51 H (13-39) U/L ALT 38 (7-52) U/L Alkaline Phosphatase 61 (34-104) U/L Troponin I High Sens 7.2 (0-20) pg/ml Total Protein 6.7 (6.0-8.3) gm/dl Albumin 3.9 (3.4-5.0) gm/dl Globulin 2.8 (2.5-4.0) gm/dl Albumin/Globulin Ratio 1.4 (0.9-2) Urine Color Urine Appearance (Clear) Urine pH (4.5-7.5) Ur Specific [place] (1.000-1.030) Urine Protein (Negative) Urine Glucose (UA) (Negative) Urine Ketones (Negative) Urine Blood (Negative) Urine Nitrite (Negative) Urine Bilirubin (Negative) Urine Urobilinogen (Negative) Ur Leukocyte Esterase (Negative) Urine WBC (Auto) (0-5) /hpf Urine RBC (Auto) (0-4) /hpf U Hyaline Cast (Auto) (0-5) /lpf U Epithel Cells (Auto) (0-5) /lpf Urine Bacteria (Auto) (Negative) SARS-CoV-2 (PCR) (Negative) Influenza Type A (PCR) (Neg) Influenza Type B (PCR) (Neg) RSV (RT-PCR) (Neg) 04/23/22 04/23/22 04/23/22 Range/Units 15:25 15:45 16:00 WBC (4.8-10.8) K/ul RBC (4.63-6.08) M/uL Hgb (14.0-18.0) g/dl Hct (40.1-51.0) % MCV (80.0-100.0) fL MCH (25.0-34.0) pg MCHC (32.0-36.0) g/dL RDW Std Deviation (36.4-46.3) fL RDW Coeff of Kj (11.5-14.5) % Plt Count (130-400) K/uL MPV (9.4-12.4) fL Immature Gran % (Auto) % Neut % (Auto) % Lymph % (Auto) % [place] % (Auto) % Eos % (Auto) % Baso % (Auto) % Neut # (Auto) (1.4-6.5) K/uL Lymph # (Auto) (1.2-3.4) K/uL [place] # (Auto) (0.24-0.82) K/uL Eos # (Auto) (0-0.50) K/uL Baso # (Auto) (0-0.2) K/uL Immature Gran # (Auto) (0.00-0.02) K/uL PT 16.7 H INR 1.6 H APTT 62.6 H* PTT Ratio 2.3 Sodium (136-145) mmol/L Potassium (3.5-5.1) mmol/L Chloride (98-107) mmol/L Carbon Dioxide (21-32) mmol/L Anion Gap (3-11) BUN (6-23) mg/dl Creatinine (0.6-1.4) mg/dl Est Cr Clr Drug Dosing Est GFR ( Amer) ml/min Est GFR (Non-Af Amer) ml/min BUN/Creatinine Ratio (10-20) Glucose (70-99(Fasting)) mg/dl Calcium (8.5-10.1) mg/dl Magnesium (1.7-2.4) mg/dl Total Bilirubin (0.2-1.0) mg/dl AST (13-39) U/L ALT (7-52) U/L Alkaline Phosphatase (34-104) U/L Troponin I High Sens Cancelled (0-20) pg/ml Total Protein (6.0-8.3) gm/dl Albumin (3.4-5.0) gm/dl Globulin (2.5-4.0) gm/dl Albumin/Globulin Ratio (0.9-2) Urine Color Urine Appearance (Clear) Urine pH (4.5-7.5) Ur Specific [place] (1.000-1.030) Urine Protein (Negative) Urine Glucose (UA) (Negative) Urine Ketones (Negative) Urine Blood (Negative) Urine Nitrite (Negative) Urine Bilirubin (Negative) Urine Urobilinogen (Negative) Ur Leukocyte Esterase (Negative) Urine WBC (Auto) (0-5) /hpf Urine RBC (Auto) (0-4) /hpf U Hyaline Cast (Auto) (0-5) /lpf U Epithel Cells (Auto) (0-5) /lpf Urine Bacteria (Auto) (Negative) SARS-CoV-2 (PCR) NEGATIVE (Negative) Influenza Type A (PCR) Negative (Neg) Influenza Type B (PCR) Negative (Neg) RSV (RT-PCR) Negative (Neg) 04/23/22 Range/Units Unknown WBC (4.8-10.8) K/ul RBC (4.63-6.08) M/uL Hgb (14.0-18.0) g/dl Hct (40.1-51.0) % MCV (80.0-100.0) fL MCH (25.0-34.0) pg MCHC (32.0-36.0) g/dL RDW Std Deviation (36.4-46.3) fL RDW Coeff of Kj (11.5-14.5) % Plt Count (130-400) K/uL MPV (9.4-12.4) fL Immature Gran % (Auto) % Neut % (Auto) % Lymph % (Auto) % [place] % (Auto) % Eos % (Auto) % Baso % (Auto) % Neut # (Auto) (1.4-6.5) K/uL Lymph # (Auto) (1.2-3.4) K/uL [place] # (Auto) (0.24-0.82) K/uL Eos # (Auto) (0-0.50) K/uL Baso # (Auto) (0-0.2) K/uL Immature Gran # (Auto) (0.00-0.02) K/uL PT INR APTT PTT Ratio Sodium (136-145) mmol/L Potassium (3.5-5.1) mmol/L Chloride (98-107) mmol/L Carbon Dioxide (21-32) mmol/L Anion Gap (3-11) BUN (6-23) mg/dl Creatinine (0.6-1.4) mg/dl Est Cr Clr Drug Dosing Est GFR ( Amer) ml/min Est GFR (Non-Af Amer) ml/min BUN/Creatinine Ratio (10-20) Glucose (70-99(Fasting)) mg/dl Calcium (8.5-10.1) mg/dl Magnesium (1.7-2.4) mg/dl Total Bilirubin (0.2-1.0) mg/dl AST (13-39) U/L ALT (7-52) U/L Alkaline Phosphatase (34-104) U/L Troponin I High Sens (0-20) pg/ml Total Protein (6.0-8.3) gm/dl Albumin (3.4-5.0) gm/dl Globulin (2.5-4.0) gm/dl Albumin/Globulin Ratio (0.9-2) Urine Color Yellow Urine Appearance Clear (Clear) Urine pH 6.5 (4.5-7.5) Ur Specific [place] 1.036 H (1.000-1.030) Urine Protein Negative (Negative) Urine Glucose (UA) Negative (Negative) Urine Ketones Trace H (Negative) Urine Blood 2+ H (Negative) Urine Nitrite Negative (Negative) Urine Bilirubin Negative (Negative) Urine Urobilinogen Negative (Negative) Ur Leukocyte Esterase Negative (Negative) Urine WBC (Auto) 1-5 (0-5) /hpf Urine RBC (Auto) >30 H (0-4) /hpf U Hyaline Cast (Auto) 1-5 (0-5) /lpf U Epithel Cells (Auto) 0-5 (0-5) /lpf Urine Bacteria (Auto) Negative (Negative) SARS-CoV-2 (PCR) (Negative) Influenza Type A (PCR) (Neg) Influenza Type B (PCR) (Neg) RSV (RT-PCR) (Neg) Administered Medications Discontinued Medications Magnesium Sulfate/Dextrose (Magnesium Sulfate / D5w) 1 gm in 100 mls @ 100 mls/hr IV NOW STA Stop: 04/23/22 17:26 Last Admin: 04/23/22 16:57 Dose: 100 mls/hr Documented By: RDD Imaging Data Radiologist's Impression: Chest X-Ray 04/23/22 15:07 XR chest 1V portable HISTORY: Shortness of breath. COMPARISON: Chest 04/15/2022. FINDINGS: No pneumothorax. There are low lung volumes. The heart remains mildly enlarged. There are bibasilar linear densities consistent with subsegmental atelectasis. This remains unchanged. No new focal lung consolidations to suggest a pneumonia. No evidence for pulmonary edema. Spinal stimulator leads again noted. IMPRESSION: No change in bibasilar linear densities. This favors atelectasis. A pneumonia could also have a similar appearance in the appropriate clinical setting. ACT 112: Negative or not required by law. Electronically signed by: Darian Wiseman M.D. 04/23/2022 3:34 PM Abdomen/Pelvis CT 04/23/22 16:[address] WITH IV CONTRAST CT DOSE: HISTORY: Left-sided abdominal pain. TECHNIQUE: Multiaxial CT images of the abdomen and pelvis were performed following the use of intravenous contrast. A dose lowering technique was utilized adhering to the principles of ALARA. COMPARISON STUDY: Abdomen and pelvis CT 04/11/2022. FINDINGS: The lung bases are better appreciated on the same day chest CT. No pneumoperitoneum. No pneumatosis. Scoliosis again noted. Postoperative changes within the lumbar spine. Benign-appearing sclerotic change within the left iliac bone again noted. Right lower quadrant subcutaneous pain pump device with an intrathecal catheter remains unchanged. There is also a left lower quadrant spinal stimulator pack again noted. The liver, gallbladder, pancreas, spleen, and adrenal glands unremarkable. The right kidney enhances normally. Stable 1.5 cm hypodense lesion within the left kidney. This favors a cyst. Stable left- sided nephrolithiasis. No ureteral stones. No hydronephrosis. The main portal vein is patent. Normal caliber abdominal aorta. No retroperitoneal lymphadenopathy. The metallic artifact results in suboptimal evaluation of the mid to lower abdomen. The bladder is unremarkable. No pelvic free fluid. No bowel wall thickening or obstruction. IMPRESSION: 1. Suboptimal evaluation of the abdomen and pelvis due to the metallic artifact. 2. No definite bowel wall thickening or obstruction. 3. Left-sided nephrolithiasis, unchanged. No ureteral stones. No hydronephrosis. 4. Additional findings as described above. ACT 112: Negative or not required by law. Electronically signed by: Darian Wiseman M.D. 04/23/2022 5:12 PM Chest CTA 04/23/22 16:01 CHEST CTA for PULMONARY ARTERIES CT DOSE: 2049.95 mGy.cm HISTORY: Shortness of breath. TECHNIQUE: Multiaxial CT images of the chest were performed following the intravenous administration of contrast to evaluate the pulmonary arteries. Maximal intensity projection images were also obtained. A dose lowering technique was utilized adhering to the principles of ALARA. COMPARISON STUDY: Chest CTA 04/01/2022. FINDINGS: Severe scoliosis. Intrathecal catheter and spinal stimulator leads are noted. The heart remains normal in size. Trace right pleural effusion which has improved. No pericardial effusion. Normal thyroid gland. A few prominent mediastinal lymph nodes remain stable. No hilar lymphadenopathy. Normal esophagus. No evidence for an aortic dissection. Nondiagnostic evaluation of the right lower lobe subsegmental pulmonary arteries due to the respiratory motion artifact. Otherwise, the remaining pulmonary arteries show no filling defects to suggest a pulmonary embolus. No acute fractures within the visualized osseous structures. No pneumothorax. The central airways are patent. Mild right bronchial wall thickening has improved. There are few bibasilar linear densities likely representing subsegmental atelectasis. No evidence for pulmonary edema. IMPRESSION: 1. No evidence for a pulmonary embolus with limitations as described above. 2. Low lung volumes with basilar linear densities likely representing subsegmental atelectasis. 3. Prominent mediastinal lymph nodes remain stable. 4. Interval improvement in the trace right pleural effusion. 5. Please refer to the same day abdomen and pelvis CT for further evaluation of the abdominal structures. ACT 112: Negative or not required by law. Electronically signed by: Darian Wiseman M.D. 04/23/2022 5:03 PM Discharge Plan Visit Data Chief Complaint: Shortness of Breath/Dyspnea Stated Complaint: SOB,COUGH,CONGESTION,ABD PAIN ED Provider: Eduardo Cummins Discharge Problem: [place]IL[place] (dyspnea on exertion), Abdominal pain, Hematuria, Chest pain Patient Disposition: Being Evaluated by Hospitalist Forms Stand Alone Forms: My [facility] Prescriptions Prescriptions: No Action multivitamin tablet 1 tab PO DAILY hydrocodone-acetaminophen 5-325 mg tablet 1 tab PO BID PRN (Reason: break through pain) Qty: 60 0RF Rx Instructions: ONGOING THERAPY escitalopram oxalate [Lexapro] 20 mg tablet 20 mg PO DAILY Narcan 4 mg/actuation spray,non-aerosol 4 mg intranasal Q2M PRN (Reason: opioid overdose) Qty: 2 0RF Rx Instructions: spray 1 dose into ONE nostril; alternate nostrils w each dose until help arrives baclofen 10 mg tablet 10 mg PO TID Qty: 30 0RF furosemide 40 mg tablet 40 mg PO DAILY Qty: 90 3RF trazodone 50 mg tablet 100 mg PO HS 90 Days Qty: 180 1RF levothyroxine 100 mcg tablet 100 mcg PO QAM Qty: 90 3RF fluticasone propion-salmeterol [Wixela Inhub] 500-50 mcg/dose blister with device 1 inh inhalation BID albuterol sulfate [ProAir HFA] 90 mcg/actuation HFA aerosol inhaler 2 puff inhalation Q6H PRN (Reason: Shortness Of Breath) cholecalciferol (vitamin D3) 1,000 unit (25 mcg) tablet 1,000 unit PO DAILY warfarin 5 mg Tablet 5 mg PO DAILY@1600 Qty: 30 0RF Protocol: Dose Management Condition: Sunday Dose/Route: 7.5 mg Instruction: 1.5 x 5 mg tablets Condition: Sunday Dose/Route: 7.5 mg Instruction: 1.5 x 5 mg tablets Condition: Sunday Dose/Route: 7.5 mg Instruction: 1.5 x 5 mg tablets Condition: Sunday Dose/Route: 7.5 mg Instruction: 1.5 x 5 mg tablets Condition: Dose/Route: 7.5 mg Instruction: 1.5 x 5 mg tablets Condition: Sunday Dose/Route: 7.5 mg Instruction: 1.5 x 5 mg tablets Condition: Sunday Dose/Route: 7.5 mg Instruction: 1.5 x 5 mg tablets Protocol Text: Adjustment Start Date: Sunday04/21/22 INR Value: 1.2 INR Date: 04/21/22 Recheck Date: 04/24/22 amiodarone 200 mg Tablet 200 mg PO DAILY Qty: 30 0RF pantoprazole 40 mg Tablet,Delayed Release (Dr/Ec) 40 mg PO BID Qty: 60 0RF sennosides-docusate sodium [Senokot-S] 8.6-50 mg Tablet 1 tab PO BID Qty: 60 0RF cyanocobalamin (vitamin B-12) 1,000 mcg capsule 1,000 mcg PO DAILY Qty: 30 0RF Rx Instructions: OTC polyethylene glycol 3350 8.5 gram powder in packet 17 gm PO BID Qty: 72 0RF Referrals Referrals: Felix Reyes MD [Primary Care Provider] - : Abdominal pain Qualifiers: Abdominal location: unspecified location Qualified Code(s): R10.9 - Unspecified abdominal pain Hematuria Qualifiers: Hematuria type: unspecified type Qualified Code(s): R31.9 - Hematuria, unspecified Chest pain Qualifiers: Chest pain type: unspecified Qualified Code(s): R07.9 - Chest pain, unspecified
[2022-04-23 16:11] LABS: Troponin I High Sensitivity 7.2 pg/ml (0-20)
[2022-04-23 16:17] LABS: Alanine Aminotransferase 38 U/L (7-52); Albumin Globulin Ratio 1.4 (0.9-2); Albumin Level 3.9 gm/dl (3.4-5.0); Alkaline Phosphatase 61 U/L (34-104); Anion Gap 7 (3-11); Aspartate Aminotransferase 51 U/L (13-39); BUN Creatinine Ratio 14.5 (10-20); Bilirubin,Total 0.6 mg/dl (0.2-1.0); Blood Urea Nitrogen 9 mg/dl (6-23); Calcium 8.9 mg/dl (8.5-10.1); Carbon Dioxide 30 mmol/L (21-32); Chloride 102 mmol/L (98-107); Est GFR (African American) 120.7 ml/min; Est GFR (Non-African American) 104.1 ml/min; Globulin 2.8 gm/dl (2.5-4.0); Glucose 93 mg/dl (70-99(Fasting)); Magnesium 1.6 mg/dl (1.7-2.4); Potassium 3.4 mmol/L (3.5-5.1); Sodium 139 mmol/L (136-145); Total Protein 6.7 gm/dl (6.0-8.3)
[2022-04-23] MEDS ORDERED: MAGNESIUM SULFATE / D5W 1 GM/100 ML BAG IV STA (16:27)
[2022-04-23 16:35] LABS: INR 1.6 (0.9-1.1); Partial Thromboplastin Ratio 2.3; Prothrombin Time 16.7 Seconds (9.0-12.0)
[2022-04-23 16:43] LABS: Partial Thromboplastin Time 62.6 Seconds (21.0-31.0)
[2022-04-23] MEDS ORDERED: OPTIRAY 320 500ml IV ONE (16:45)
[2022-04-23 16:55] LABS: Influenza A virus by PCR Negative (Neg); Influenza B virus by PCR Negative (Neg); RSV by PCR Negative (Neg); SARS CoV2 RNA(COVID-19)Cepheid NEGATIVE (Negative)
--- NOTE | 2022-04-23 17:06 | CT Scan Report ---
CHEST CTA for PULMONARY ARTERIES CT DOSE: 2049.95 mGy.cm HISTORY: Shortness of breath. TECHNIQUE: Multiaxial CT images of the chest were performed following the intravenous administration of contrast to evaluate the pulmonary arteries. Maximal intensity projection images were also obtaine d. A dose lowering technique was utilized adhering to the principles of ALARA. COMPARISON STUDY: Chest CTA 04/01/2022. FINDINGS: Severe scoliosis. Intrathecal catheter and spinal stimulator leads are noted. The heart rem ains normal in size. Trace right pleural effusion which has improved. No pericardial effusion. Normal thyroid gland. A few prominent mediastinal lymph nodes remain stable. No hilar lymphadenopathy. Norm al esophagus. No evidence for an aortic dissection. Nondiagnostic evaluation of the right lower lobe subsegmental pulmonary arteries due to the respiratory motion artifact. Otherwise, the remaining pulm onary arteries show no filling defects to suggest a pulmonary embolus. No acute fractures within the visualized osseous structures. No pneumothorax. The central airways are patent. Mild right bronchial wall thickening has improved. There are few bibasilar linear densities likely representing subsegment al atelectasis. No evidence for pulmonary edema. IMPRESSION: 1. No evidence for a pulmonary embolus with limitations as described above. 2. Low lung volumes with basilar linear densities likely representing subsegmental atelectasis. 3. Prominent mediastinal lymph nodes remain stable. 4. Interval improvement in the trace right pleural effusion. 5. Please refer to the same day abdomen and pelvis CT for further evaluation of the abdominal structu res. ACT 112: Negative or not required by law. Electronically signed by: Darian Wiseman M.D. 04/23/2022 5:03 PM
--- NOTE | 2022-04-23 17:14 | CT Scan Report ---
ABDOMEN AND PELVIS CT WITH IV CONTRAST CT DOSE: HISTORY: Left-sided abdominal pain. TECHNIQUE: Multiaxial CT images of the abdomen and pelvis were performed following the use of intrave nous contrast. A dose lowering technique was utilized adhering to the principles of ALARA. COMPARISON STUDY: Abdomen and pelvis CT 04/11/2022. FINDINGS: The lung bases are better appreciated on the same day chest CT. No pneumoperitoneum. No pne umatosis. Scoliosis again noted. Postoperative changes within the lumbar spine. Benign-appearing scle rotic change within the left iliac bone again noted. Right lower quadrant subcutaneous pain pump sumaya ce with an intrathecal catheter remains unchanged. There is also a left lower quadrant spinal stimula tor pack again noted. The liver, gallbladder, pancreas, spleen, and adrenal glands unremarkable. The right kidney enhances normally. Stable 1.5 cm hypodense lesion within the left kidney. This favors a cyst. Stable left-sided nephrolithiasis. No ureteral stones. No hydronephrosis. The main portal vein is patent. Normal caliber abdominal aorta. No retroperitoneal lymphadenopathy. The metallic artifact results in suboptimal evaluation of the mid to lower abdomen. The bladder is unremarkable. No pelvic free fluid. No bowel wall thickening or obstruction. IMPRESSION: 1. Suboptimal evaluation of the abdomen and pelvis due to the metallic artifact. 2. No definite bowel wall thickening or obstruction. 3. Left-sided nephrolithiasis, unchanged. No ureteral stones. No hydronephrosis. 4. Additional findings as described above. ACT 112: Negative or not required by law. Electronically signed by: Darian Wiseman M.D. 04/23/2022 5:12 PM
[2022-04-23 17:53] LABS: Appearance Urine Clear (Clear); Bacteria Urine Automated Negative (Negative); Bilirubin Urine Negative (Negative); Blood Urine 2+ (Negative); Color Urine Yellow; Epithelial Cell Urine Auto 0-5 /lpf (0-5); Glucose Urine UA Negative (Negative); Ketones Urine Trace (Negative); Leukocyte Esterase Urine Negative (Negative); Nitrite Urine Negative (Negative); Protein Urine Negative (Negative); RBC Urine Automated >30 /hpf (0-4); Specific Gravity Urine 1.036 (1.000-1.030); Urobilinogen Urine Negative (Negative); pH Urine 6.5 (4.5-7.5)
--- NOTE | 2022-04-23 18:58 | History & Physical Report ---
Date of Service April 23, 2022 Assessment & Plan (1) Fatigue: Plan: Thom is a 66-year-old male with a past medical history of hypertension, prediabetes, hypothyroidism, depression, insomnia, chronic back pain with intrathecal pump, BPH who presents with chest pain Shortness of breath/rib pain suspect deconditioning and costochondritis Recently discharged after treatment for pneumonia 04/18. No evidence of recurrent/worsening pneumonia on CTA. Completed antibiotics. Tachypneic but improved with rest, is not hypoxic on room air Troponin normal, no EKG changes Minimal wheezing on exam Anticoagulated - Low suspicion for amio toxicity at this time We will add lidocaine patches and Voltaren for suspected costochondritis Chronic back pain With postlaminectomy syndrome of lumbosacral region, with spinal cord stimulator in place with Dilaudid pump Follows with pain management Continue pain pump Patient endorses some intermittent numbness/tingling in his saddle, none present at time of exam. No bowel/bladder incontinence, does get some right foot tingling intermittently in the heel. 5/5 strength to ankle dorsiflexion/plantarflexion, 4/5 strength limited by pain to hip flexion bilaterally - Given new/worsened saddle anesthesia Anemia Hemoglobin 13.3 Ferritin 83 on 04/16/2022, transferrin saturation 23% 04/16 Low normal iron stores, recommend iron q. OD Cephalic vein thrombosis Clots occurred while on Eliquis suggesting failure, patient was switched to warfarin after Lovenox bridge on prior discharge due to concern for recurrent clots and suspected hypercoagulable state Subtherapeutic, 1 dose of Lovenox given and warfarin continued GERD Daily symptoms at home Continue PPI twice daily Carafate as needed A. fib Sinus on admission - Continue amiodarone Continue warfarin as noted. Patient's INR subtherapeutic, he did take a dose of Lovenox this morning. We will extend Lovenox bridge until therapeutic. His warfarin was increased this morning to 5 daily No AV kayla agents, history of significant hypotension previously Lisinopril previously discontinued due to hypotension No evidence of RVR/exacerbation or ACS at this time Depression Continue Lexapro, trazodone nightly Hypothyroidism TSH recently normal, continue Synthroid 100 mcg daily Lumbar stenosis With baclofen intrathecal pump, no acute change in management Thoracic aortic aneurysm Continued outpatient surveillance, no acute change DVT prophylaxis: Warfarin Diet: Heart healthy Disposition: Medical/surgical. No acute reversible signs weakness, suspect severe deconditioning. 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 Tachypneic and difficulty ambulating more than 30 feet in room. Recommended for admission for additional eval of weakness and possible rehab. CTA: No evidence of PE. Low lung volumes. Interval improvement of prior right pleural effusion. Stable mediastinal lymph nodes. No acute findings. CTA/P: Suboptimal due to metallic artifact but without acute findings, left- sided nephrolithiasis is appreciated CXR: No change, atelectasis versus pneumonia. CTA as above. Hemoglobin 13.3, potassium 3.4, creatinine with normal baseline and admitting creatinine 0.62 High-sensitivity troponin 7.2, EKG poor quality but sinus with right bundle with comparable morphology to comparison on 04/15, no ST segment changes PCR/flu/RSV negative UA uninfected appearing INR 1.6, patient is on warfarin since discharge Patient seen at the bedside with his present. He reports that he has felt like he is not recovered well, did okay at home for about a day but then progressively continued to be weak, had difficulty ambulating, tired, and achy particularly in his ribs which is worse when he coughs frustrated, reports he has continued to have a cough and when he coughs it hurts his lower rib borders. Reports he just feels generally achy including the chest, ribs, and abdomen. [place] CT does not show any evidence of blood clots, and his troponin is normal patient feels this is also somewhat frustrating as there is not things to immediately fix. Notes that he has felt weaker and just not right. Denies fever/chills/sweats. In the bedside with his present. He notes that he has chronic tingling which is slightly worse in his right foot, and has intermittent tingling in his thigh since having a laminectomy and cage placed for lumbar decompression in the . Notes that this has not changed recently, but the pain in his lower ribs is new. Medical History: Reviewed Medications: Reviewed Surgical History: Reviewed Allergies: Reviewed Social History: Reviewed Code Status: Reviewed Allergies Allergy/AdvReac Type Severity Reaction Status Date / Time Penicillins Allergy Unknown Rash Verified 04/23/22 15:38 sumatriptan [From Imitrex] Allergy Rash Verified 04/23/22 15:38 Home Medications Medication Instructions Recorded Confirmed Type multivitamin 1 tab PO DAILY 05/17/18 04/23/22 History cholecalciferol (vitamin D3) 25 1,000 unit PO DAILY 01/28/19 04/23/22 History mcg (1,000 unit) tablet furosemide 40 mg tablet 40 mg PO DAILY #90 tabs 05/24/21 04/23/22 Rx naloxone 4 mg/actuation nasal 4 mg intranasal Q2M PRN opioid 07/21/21 04/23/22 Rx spray (Narcan) overdose #2 ea albuterol sulfate 90 mcg/actuation 2 puff inhalation Q6H PRN 09/29/21 04/23/22 History aerosol inhaler (ProAir HFA) Shortness Of Breath fluticasone 500 mcg-salmeterol 50 1 inh inhalation BID 09/29/21 04/23/22 History mcg/dose blistr powdr for inhalation (Wixela Inhub) baclofen 10 mg tablet 10 mg PO TID #30 tabs 10/27/21 04/23/22 Rx trazodone 50 mg tablet 100 mg PO HS 90 days #180 tabs 01/26/22 04/23/22 Rx escitalopram oxalate 20 mg tablet 20 mg PO DAILY 02/02/22 04/23/22 History (Lexapro) hydrocodone 5 mg-acetaminophen 325 1 tab PO BID PRN break through 02/02/22 04/23/22 Rx mg tablet pain #60 tabs levothyroxine 100 mcg tablet 100 mcg PO QAM #90 tabs 02/20/22 04/23/22 Rx amiodarone 200 mg tablet 200 mg PO DAILY #30 tabs 04/18/22 04/23/22 Rx cyanocobalamin (vitamin B-12) 1,000 mcg PO DAILY #30 caps 04/18/22 04/23/22 Rx 1,000 mcg capsule pantoprazole 40 mg tablet,delayed 40 mg PO BID #60 tabs 04/18/22 04/23/22 Rx release polyethylene glycol 3350 8.5 gram 17 gm PO BID #72 ea 04/18/22 04/23/22 Rx oral powder packet sennosides 8.6 mg-docusate sodium 1 tab PO BID #60 tabs 04/18/22 04/23/22 Rx 50 mg tablet (Senokot-S) warfarin 5 mg tablet 5 mg PO DAILY@1600 #30 tabs 04/18/22 04/23/22 Rx Past Med/Surg History Medical History Acute thrombosis of cephalic vein Atrial fibrillation Chronic venous stasis dermatitis Depression Encounter for pre-operative examination GERD (gastroesophageal reflux disease) History of broken collarbone Hypertension Hypothyroidism Kyphoscoliosis continuous churn buttermaker current use of anticoagulants with INR goal of 2.0-3.0 Lower extremity venous stasis Lumbar stenosis New onset atrial fibrillation Osteoporosis Paroxysmal atrial fibrillation Paroxysmal atrial fibrillation Pneumonia Postlaminectomy syndrome of lumbosacral region Presence of intrathecal pump Sacroiliitis Scoliosis Testicular hernia history of Thoracic aortic aneurysm (TAA) Surgical History Encounter for post-sterilization vasoplasty History of appendectomy Previous back surgery S/P hernia repair Family History Mother Colitis Brother Colitis Hypertension Sister Hypertension Father Hypertension Prostate cancer Myocardial infarction Denies family history of Ovarian cancer Coronary heart disease Breast cancer Colorectal cancer Social History Smoking Status: Never smoker Second Hand Exposure: No; Hx Alcohol Use: No Hx Substance Use: No Preferred Language: Venezuelan Communication Ability: Effective Visual Impairment: Limited Hearing Ability: Normal Early Morning Required: No Beliefs That Will Affect Care: Syn[employer] marital status: Current Living Situation: Spouse current occupational status: disabled Feels Safe at Home: Yes Childhood Exposure to Second-Hand Smoke: No caffeine: Yes Dental Care, Regularly: Yes Physical Activity Frequency: Daily Seatbelt Use: always Sunscreen Use: Yes Assistive Devices: Cane, Scooter/Electric Scooter and Walker Review of Systems Review of Systems: All systems reviewed & are unremarkable except as noted in HPI & below Physical Exam Physical Exam: General: A&Ox3. NAD. Cooperative. HEENT: Atraumatic, normocephalic. Pulm: CTAB A&P. -wheezes, -rales, -rhonchi. Symmetrical chest rise. No increase in work of breathing. No respiratory distress. Cardiac: RRR, -mrg. Radial pulses intact and symmetrical. Abdominal: Nontender, nondistended, soft. BS present. Extremities: Warm, dry. Sensation soft touch intact in feet bilaterally without asymmetry. Able to hip flex against antigravity with resistance, mildly limited by pain in the back bilaterally with 4+/5 strength overall. Cap refill brisk. Sensation to soft touch in saddle is intact, patient does report some intermittent numbness tingling in this area in the past few years and with a history of chronic back pain. Denies urinary incontinence/overflow, denies bowel incontinence/overflow Results & Data Results & Data ([facility]) Vital Signs (Past 12 Hours) Vital Signs Temp Pulse Pulse Pulse Pulse Resp Resp 04/23/22 18:17 92 H 90 85 26 H 04/23/22 18:04 04/23/22 17:30 04/23/22 17:02 04/23/22 17:00 04/23/22 16:59 04/23/22 16:27 75 04/23/22 16:00 71 04/23/22 15:32 80 18 04/23/22 15:07 04/23/22 15:07 04/23/22 15:22 04/23/22 15:02 37.3 C 87 24 Resp Resp BP Pulse Ox Pulse Ox Pulse Ox Pulse Ox 04/23/22 18:17 24 20 96 97 97 04/23/22 18:04 97 04/23/22 17:30 128/83 04/23/22 17:02 96 04/23/22 17:00 126/79 04/23/22 16:59 138/64 04/23/22 16:27 04/23/22 16:00 04/23/22 15:32 97 04/23/22 15:07 97 04/23/22 15:07 97 04/23/22 15:22 96 04/23/22 15:02 125/76 98 O2 Del Method 04/23/22 18:17 Room Air 04/23/22 18:04 04/23/22 17:30 04/23/22 17:02 04/23/22 17:00 04/23/22 16:59 04/23/22 16:27 04/23/22 16:00 04/23/22 15:32 04/23/22 15:07 Room Air 04/23/22 15:07 Room Air 04/23/22 15:22 Room Air 04/23/22 15:02 Room Air PG Care Time/CCT Total # of Minutes Spent Total Time Spent with Patient: Total time spent is greater than 50% in coordination of care (as documented) at patient's floor/unit and/or counseling patient: Coding Level of Care Code INT OBSERVATION CARE 51M LVL 2 Diagnoses Fatigue R53.83 BPH (benign prostatic hyperplasia) N40.0 Complex sleep apnea syndrome G47.31 Chronic venous insufficiency I87.2 Depression F32.9 Keke's thyroiditis E06.3 Hypertension I10 Hypothyroidism E03.9 retirement current use of anticoagulants with INR goal of 2.0-3.0 Z79.01 Paroxysmal atrial fibrillation I48.0 Sleep apnea G47.30 Thoracic aortic aneurysm (TAA) I71.20
[2022-04-23] MEDS ORDERED: Patient's HEIGHT &/or WEIGHT Needed SCH (21:00)
[2022-04-23] MEDS: LIDOCAINE 5% 1 PATCH TD SCH (21:23)
[2022-04-23] MEDS: POLYETHYLENE (MIRALAX) 17 GM PACK PO SCH (21:25)
[2022-04-23] MEDS: traZODone HCL 100 MG TAB PO SCH (21:27)
[2022-04-23] MEDS: PANTOprazole 40 MG TAB PO SCH (21:28)
[2022-04-23] MEDS: BACLOFEN 10 MG TAB PO SCH (21:28)
[2022-04-23] MEDS: DOCUSATE SODIUM/SENNA 50/8.6MG TAB PO SCH (21:28)
[2022-04-23] MEDS ORDERED: Patient's HEIGHT &/or WEIGHT Needed STA (21:31)
[2022-04-23] MEDS: HYDROCODONE/ACETAMOPHEN 5/325MG TAB PO PRN (22:15)
[2022-04-23] MEDS: ENOXAPARIN 100 MG/1ML SYR SQ SCH (22:15)
[2022-04-24] MEDS: LEVOTHYROXINE SODIUM 100 MCG TABLET PO SCH (06:10)
[2022-04-24] MEDS: AMIODARONE 200 MG TAB PO SCH (07:59)
[2022-04-24] MEDS: CHOLECALCIFEROL 1,000 UNITS 25 MCG TAB PO SCH (07:59)
[2022-04-24] MEDS: BACLOFEN 10 MG TAB PO SCH ×3 (07:59→20:54)
[2022-04-24] MEDS: DOCUSATE SODIUM/SENNA 50/8.6MG TAB PO SCH ×2 (08:00→20:54)
[2022-04-24] MEDS: ESCITALOPRAM OXALATE 20 MG TAB PO SCH (08:00)
[2022-04-24] MEDS: CYANOCOBALAMIN (B-12) 500 MCG TABLET PO SCH (08:00)
[2022-04-24] MEDS: MULTIVITAMIN TAB PO SCH (08:01)
[2022-04-24] MEDS: FUROSEMIDE 40 MG TAB PO SCH (08:01)
[2022-04-24] MEDS: FLUTICASONE/VILANTEROL 200/25MCG 14 PUFFS/INHALER INH SCH (08:01)
[2022-04-24] MEDS: POLYETHYLENE (MIRALAX) 17 GM PACK PO SCH ×2 (08:02→20:54)
[2022-04-24] MEDS: PANTOprazole 40 MG TAB PO SCH ×2 (08:02→20:56)
[2022-04-24] MEDS: LIDOCAINE 5% 1 PATCH TD SCH ×2 (08:02→18:35)
[2022-04-24] MEDS: HYDROCODONE/ACETAMOPHEN 5/325MG TAB PO PRN ×2 (08:11→18:42)
[2022-04-24 08:38] LABS: Hemoglobin 12.1 g/dl (14.0-18.0); Mean Corpuscular Hemoglobin 31.1 pg (25.0-34.0); Mean Corpuscular Hgb Conc 33.6 g/dL (32.0-36.0); Mean Corpuscular Volume 92.5 fL (80.0-100.0); Mean Platelet Volume 9.8 fL (9.4-12.4); Platelet Count 137 K/uL (130-400); RDW Coefficient of Variation 15.2 % (11.5-14.5); RDW Standard Deviation 51.7 fL (36.4-46.3); Red Blood Count 3.89 M/uL (4.63-6.08); White Blood Count 2.64 K/ul (4.8-10.8)
[2022-04-24 08:51] LABS: INR 1.4 (0.9-1.1); Prothrombin Time 15.1 Seconds (9.0-12.0)
[2022-04-24 09:00] LABS: BUN Creatinine Ratio 13.2 (10-20); Calcium 8.5 mg/dl (8.5-10.1); Creatinine Clr Calc Pharmacy 115.1 ml/min; Est GFR (Non-African American) 95.7 ml/min
[2022-04-24 09:29] LABS: Large Granular Lymph # (manua 0.58 K/uL; Large Granular Lymph % (manual) 22 %; Lymphocytes # (manual) 0.74 K/uL (1.2-3.4); Lymphocytes % (manual) 28 %; Monocytes # (manual) 0.34 K/uL (0.24-0.82); Monocytes % (manual) 13 %; Neutrophils # (manual) 0.98 K/uL (1.4-6.5); Neutrophils % (manual) 37 %; Smudge Cells Present
[2022-04-24] MEDS: ENOXAPARIN 100 MG/1ML SYR SQ SCH ×2 (12:01→20:56)
--- NOTE | 2022-04-24 15:14 | Hospitalist Progress Note ---
Date of Service April 24, 2022 Assessment & Plan (1) Chest pain: Plan: Thom is a 66-year-old male with a past medical history of hypertension, prediabetes, hypothyroidism, depression, insomnia, chronic back pain with intrathecal pump, BPH, with a recent prolonged admission for RSV with pneumonia, respiratory failure and colonic ileus,who presents with chest pain and generalized weakness after being home for 5 days. Shortness of breath/rib pain suspect deconditioning and costochondritis TTP over lower ribs no new PNA, no fevers/chills, no hypoxia Troponin normal, no EKG changes therapeutically Anticoagulated - Low suspicion for amio toxicity at this time Definitely costochondritis based on exam continue lidocaine patches and Voltaren gel -increase hydrocodone to 1 tab q4h prn mod-severe pain -w/ diminished BS at bases--> add on ICS (2) Generalized weakness: Plan: 2/2 prolonged (17 day) recent hospital stay. He was ambulating 80 feet during that stay with PT and felt well enough to go home at the time But obviously was not doing as well as he htought he was once he returned home PT/OT recommending rehab here referrals made to [facility] (3) Hematoma: Plan: left arm at site of previous thrombophlebitis now on Lovenox and coumadin (bridging) causing pain but no associated signs or symptoms of infection of hematoma -elevate limb above heart -increase frequency of hydrocodone prn -warm compresses did not help -hgb stable-ok to continue Lovenox/coumadin -follow CBC (4) Constipation: Plan: with severe colonic ileus prior hospitalization, now moving bowels regularly -continue Miralax and senna/docusate bid (5) Chronic venous insufficiency: Plan: noted (6) Depression: Plan: stable Continue Lexapro, trazodone nightly (7) Hypothyroidism: Plan: TSH recently normal, continue Synthroid 100 mcg daily (8) Paroxysmal atrial fibrillation: Plan: last admission had new diagnosis of WESLEY. AV kayla agents caused significant hypotension and was started on amiodarone Sinus on admission and examines in regular rhythm not on tele - Continue amiodarone 200mg daily Continue warfarin/Lovenox bridge (9) Thoracic aortic aneurysm (TAA): Plan: Thoracic aortic aneurysm Continued outpatient surveillance, no acute change (10) Intractable back pain: Plan: Chronic back pain With postlaminectomy syndrome of lumbosacral region, with spinal cord stimulator in place with Dilaudid pump Follows with pain management Continue pain pump Patient endorses some intermittent numbness/tingling in his saddle, none present at time of exam. No bowel/bladder incontinence, does get some right foot tingling intermittently in the heel. 5/5 strength to ankle dorsiflexion/plantarflexion, 4/5 strength limited by pain to hip flexion bilaterally - Given new/worsened saddle anesthesia (11) Anemia: Plan: Hemoglobin 12 down from 13, some blood loss may be from hematoma in arm No obvious bleeding anywhere else and just had EGD/colonoscopy last admission without bleeding Ferritin 83 on 04/16/2022, transferrin saturation 23% 04/16, normal serum iron and low TIBC suggestive of anemia of chronic disease B12 low normal at 323 last admission and folate normal With smudge cells but is leukopenic, no evidence of CLL on peripheral smear peripheral smear here interpreted as anemia of chronic disease (12) Venous thrombosis: Plan: Cephalic vein thrombosis Clots occurred while on Eliquis last admission suggesting failure; patient was switched to warfarin after Lovenox bridge on prior discharge due to concern for recurrent clots and suspected hypercoagulable state remains subtherapeutic at INR 1.4 -continue therapeutic Lovenox dosing bid and coumadin dose increased to 7.5mg po daily -follow INR in AM Lupus anticoagulant weak positive from previous admission--> recommend repeat testing in 12 weeks anti-phospholipid abs negative homocysteine level elevated at 14.4 and had low normal B12 previously -continue to replace B12 for hyperhomocysteinemia -recommend outpt f/u with Hematology -is already set up with anticoagulation clinic from prior admission but first appointment to be cancelled as is admitted to hospital (13) GERD (gastroesophageal reflux disease): Plan: found to have gastritis on EGD last admit Continue PPI twice daily (14) Complex sleep apnea syndrome: Plan Dispo-continued stay on med/surg PT/OT recommending rehab, referral placed to [facility] as per my d/w CM Admission and Anticipated Discharge Date Admission Date: April 23, 2022 Subjective Pt having a lot of pain in left arm from hematoma which developed after discharge last admission at site where he previous superficial thrombophlebitis had been. Denies fevers/chills. Stil having ongoing bilateral lower rib pain, tender to touch. Feels generally weak all over and is agreeable to rehab. Has continued to move his bowels daily at home but none so far today. Review of Systems Review of Systems: All systems reviewed & are unremarkable except as noted in HPI & below Physical Exam Constitutional: WD/WN, vitals as above Eyes: + anicteric sclerae Neck: trachea midline, no thyromegaly Respiratory: normal respiratory effort, lungs clear to auscultation (except diminished BS at bases bilat) Cardiovascular: Rate/Rhythm: regular rate and regular rhythm Heart Sounds: no murmur Extremities: + edema (1+ woody edema legs bilat,left forearm 1+) left AC fossa with 6 cm hematoma, tender to touch, no erythema or warmth, purple discoloration of skin Chest (Breasts): Chest: normal inspection of chest Additional Comments: +TTP over lower ribs bilat Gastrointestinal (Abdomen): normal bowel sounds, soft, nontender, no hepatosplenomegaly Musculoskeletal: Extremities: + extremities abnormal to inspection (LUE as above), no cyanosis and no clubbing Skin: + rash (purplish discoloration legs,chronic venous stasis changes bilat) Neurologic: moves all extremities and awake; no focal motor deficits Psychiatric: A+Ox3, euthymic affect Results & Data Results & Data ([facility]) Vital Signs (Past 12 Hours) Vital Signs Temp Pulse Resp BP Pulse Ox O2 Del Method 04/24/22 07:45 Room Air 04/24/22 07:14 37.1 C 66 16 118/70 94 Room Air Laboratory Results 04/24/22 04/24/22 04/24/22 Range/Units 08:18 08:18 08:18 WBC 2.64 L (4.8-10.8) K/ul RBC 3.89 L (4.63-6.08) M/uL Hgb 12.1 L (14.0-18.0) g/dl Hct 36.0 L (40.1-51.0) % MCV 92.5 (80.0-100.0) fL MCH 31.1 (25.0-34.0) pg MCHC 33.6 (32.0-36.0) g/dL RDW Std Deviation 51.7 H (36.4-46.3) fL RDW Coeff of Kj 15.2 H (11.5-14.5) % Plt Count 137 (130-400) K/uL MPV 9.8 (9.4-12.4) fL Immature Gran % (Auto) % Neut % (Auto) % Lymph % (Auto) % Cedar % (Auto) % Eos % (Auto) % Baso % (Auto) % Neut # (Auto) (1.4-6.5) K/uL Lymph # (Auto) (1.2-3.4) K/uL Cedar # (Auto) (0.24-0.82) K/uL Eos # (Auto) (0-0.50) K/uL Baso # (Auto) (0-0.2) K/uL Immature Gran # (Auto) (0.00-0.02) K/uL Neutrophils % (Manual) 37 % Lymphocytes % (Manual) 28 % Monocytes % (Manual) 13 % Neutrophils # (Manual) 0.98 L (1.4-6.5) K/uL Lymphocytes # (Manual) 0.74 L (1.2-3.4) K/uL Monocytes # (Manual) 0.34 (0.24-0.82) K/uL Large Granular Lymphs 22 % # Lrg Granular Lymphs 0.58 K/uL Smudge Cells Present Blood Smear Review PT 15.1 H INR 1.4 H APTT PTT Ratio Sodium 139 (136-145) mmol/L Potassium 4.0 (3.5-5.1) mmol/L Chloride 105 (98-107) mmol/L Carbon Dioxide 29 (21-32) mmol/L Anion Gap 5 (3-11) BUN 10 (6-23) mg/dl Creatinine 0.76 (0.6-1.4) mg/dl Est Cr Clr Drug Dosing 115.1 Est GFR ( Amer) 111.0 ml/min Est GFR (Non-Af Amer) 95.7 ml/min BUN/Creatinine Ratio 13.2 (10-20) Glucose 103 H (70-99(Fasting)) mg/dl Calcium 8.5 (8.5-10.1) mg/dl Magnesium (1.7-2.4) mg/dl Total Bilirubin (0.2-1.0) mg/dl AST (13-39) U/L ALT (7-52) U/L Alkaline Phosphatase (34-104) U/L Troponin I High Sens (0-20) pg/ml Total Protein (6.0-8.3) gm/dl Albumin (3.4-5.0) gm/dl Globulin (2.5-4.0) gm/dl Albumin/Globulin Ratio (0.9-2) Urine Color Urine Appearance (Clear) Urine pH (4.5-7.5) Ur Specific Achille (1.000-1.030) Urine Protein (Negative) Urine Glucose (UA) (Negative) Urine Ketones (Negative) Urine Blood (Negative) Urine Nitrite (Negative) Urine Bilirubin (Negative) Urine Urobilinogen (Negative) Ur Leukocyte Esterase (Negative) Urine WBC (Auto) (0-5) /hpf Urine RBC (Auto) (0-4) /hpf U Hyaline Cast (Auto) (0-5) /lpf U Epithel Cells (Auto) (0-5) /lpf Urine Bacteria (Auto) (Negative) SARS-CoV-2 (PCR) (Negative) Influenza Type A (PCR) (Neg) Influenza Type B (PCR) (Neg) RSV (RT-PCR) (Neg) 04/23/22 04/23/22 04/23/22 Range/Units Unknown 21:12 16:00 WBC (4.8-10.8) K/ul RBC (4.63-6.08) M/uL Hgb (14.0-18.0) g/dl Hct (40.1-51.0) % MCV (80.0-100.0) fL MCH (25.0-34.0) pg MCHC (32.0-36.0) g/dL RDW Std Deviation (36.4-46.3) fL RDW Coeff of Kj (11.5-14.5) % Plt Count (130-400) K/uL MPV (9.4-12.4) fL Immature Gran % (Auto) % Neut % (Auto) % Lymph % (Auto) % Cedar % (Auto) % Eos % (Auto) % Baso % (Auto) % Neut # (Auto) (1.4-6.5) K/uL Lymph # (Auto) (1.2-3.4) K/uL Cedar # (Auto) (0.24-0.82) K/uL Eos # (Auto) (0-0.50) K/uL Baso # (Auto) (0-0.2) K/uL Immature Gran # (Auto) (0.00-0.02) K/uL Neutrophils % (Manual) % Lymphocytes % (Manual) % Monocytes % (Manual) % Neutrophils # (Manual) (1.4-6.5) K/uL Lymphocytes # (Manual) (1.2-3.4) K/uL Monocytes # (Manual) (0.24-0.82) K/uL Large Granular Lymphs % # Lrg Granular Lymphs K/uL Smudge Cells Blood Smear Review PT INR APTT PTT Ratio Sodium (136-145) mmol/L Potassium (3.5-5.1) mmol/L Chloride (98-107) mmol/L Carbon Dioxide (21-32) mmol/L Anion Gap (3-11) BUN (6-23) mg/dl Creatinine (0.6-1.4) mg/dl Est Cr Clr Drug Dosing Est GFR ( Amer) ml/min Est GFR (Non-Af Amer) ml/min BUN/Creatinine Ratio (10-20) Glucose (70-99(Fasting)) mg/dl Calcium (8.5-10.1) mg/dl Magnesium 1.7 (1.7-2.4) mg/dl Total Bilirubin (0.2-1.0) mg/dl AST (13-39) U/L ALT (7-52) U/L Alkaline Phosphatase (34-104) U/L Troponin I High Sens (0-20) pg/ml Total Protein (6.0-8.3) gm/dl Albumin (3.4-5.0) gm/dl Globulin (2.5-4.0) gm/dl Albumin/Globulin Ratio (0.9-2) Urine Color Yellow Urine Appearance Clear (Clear) Urine pH 6.5 (4.5-7.5) Ur Specific [place]ille 1.036 H (1.000-1.030) Urine Protein Negative (Negative) Urine Glucose (UA) Negative (Negative) Urine Ketones Trace H (Negative) Urine Blood 2+ H (Negative) Urine Nitrite Negative (Negative) Urine Bilirubin Negative (Negative) Urine Urobilinogen Negative (Negative) Ur Leukocyte Esterase Negative (Negative) Urine WBC (Auto) 1-5 (0-5) /hpf Urine RBC (Auto) >30 H (0-4) /hpf U Hyaline Cast (Auto) 1-5 (0-5) /lpf U Epithel Cells (Auto) 0-5 (0-5) /lpf Urine Bacteria (Auto) Negative (Negative) SARS-CoV-2 (PCR) NEGATIVE (Negative) Influenza Type A (PCR) Negative (Neg) Influenza Type B (PCR) Negative (Neg) RSV (RT-PCR) Negative (Neg) 04/23/22 04/23/22 04/23/22 Range/Units 15:45 15:25 15:25 WBC (4.8-10.8) K/ul RBC (4.63-6.08) M/uL Hgb (14.0-18.0) g/dl Hct (40.1-51.0) % MCV (80.0-100.0) fL MCH (25.0-34.0) pg MCHC (32.0-36.0) g/dL RDW Std Deviation (36.4-46.3) fL RDW Coeff of Kj (11.5-14.5) % Plt Count (130-400) K/uL MPV (9.4-12.4) fL Immature Gran % (Auto) % Neut % (Auto) % Lymph % (Auto) % Cedar % (Auto) % Eos % (Auto) % Baso % (Auto) % Neut # (Auto) (1.4-6.5) K/uL Lymph # (Auto) (1.2-3.4) K/uL Cedar # (Auto) (0.24-0.82) K/uL Eos # (Auto) (0-0.50) K/uL Baso # (Auto) (0-0.2) K/uL Immature Gran # (Auto) (0.00-0.02) K/uL Neutrophils % (Manual) % Lymphocytes % (Manual) % Monocytes % (Manual) % Neutrophils # (Manual) (1.4-6.5) K/uL Lymphocytes # (Manual) (1.2-3.4) K/uL Monocytes # (Manual) (0.24-0.82) K/uL Large Granular Lymphs % # Lrg Granular Lymphs K/uL Smudge Cells Blood Smear Review PT 16.7 H INR 1.6 H APTT 62.6 H* PTT Ratio 2.3 Sodium 139 (136-145) mmol/L Potassium 3.4 L (3.5-5.1) mmol/L Chloride 102 (98-107) mmol/L Carbon Dioxide 30 (21-32) mmol/L Anion Gap 7 (3-11) BUN 9 (6-23) mg/dl Creatinine 0.62 (0.6-1.4) mg/dl Est Cr Clr Drug Dosing Not Reportable Est GFR ( Amer) 120.7 ml/min Est GFR (Non-Af Amer) 104.1 ml/min BUN/Creatinine Ratio 14.5 (10-20) Glucose 93 (70-99(Fasting)) mg/dl Calcium 8.9 (8.5-10.1) mg/dl Magnesium 1.6 L (1.7-2.4) mg/dl Total Bilirubin 0.6 (0.2-1.0) mg/dl AST 51 H (13-39) U/L ALT 38 (7-52) U/L Alkaline Phosphatase 61 (34-104) U/L Troponin I High Sens Cancelled 7.2 (0-20) pg/ml Total Protein 6.7 (6.0-8.3) gm/dl Albumin 3.9 (3.4-5.0) gm/dl Globulin 2.8 (2.5-4.0) gm/dl Albumin/Globulin Ratio 1.4 (0.9-2) Urine Color Urine Appearance (Clear) Urine pH (4.5-7.5) Ur Specific Achille (1.000-1.030) Urine Protein (Negative) Urine Glucose (UA) (Negative) Urine Ketones (Negative) Urine Blood (Negative) Urine Nitrite (Negative) Urine Bilirubin (Negative) Urine Urobilinogen (Negative) Ur Leukocyte Esterase (Negative) Urine WBC (Auto) (0-5) /hpf Urine RBC (Auto) (0-4) /hpf U Hyaline Cast (Auto) (0-5) /lpf U Epithel Cells (Auto) (0-5) /lpf Urine Bacteria (Auto) (Negative) SARS-CoV-2 (PCR) (Negative) Influenza Type A (PCR) (Neg) Influenza Type B (PCR) (Neg) RSV (RT-PCR) (Neg) 04/23/22 04/23/22 Range/Units 15:25 15:25 WBC 2.60 L (4.8-10.8) K/ul RBC 4.25 L (4.63-6.08) M/uL Hgb 13.3 L (14.0-18.0) g/dl Hct 39.4 L (40.1-51.0) % MCV 92.7 (80.0-100.0) fL MCH 31.3 (25.0-34.0) pg MCHC 33.8 (32.0-36.0) g/dL RDW Std Deviation 51.2 H (36.4-46.3) fL RDW Coeff of Kj 15.0 H (11.5-14.5) % Plt Count 181 (130-400) K/uL MPV 9.9 (9.4-12.4) fL Immature Gran % (Auto) 0.4 % Neut % (Auto) 51.5 % Lymph % (Auto) 22.3 % Cedar % (Auto) 24.2 % Eos % (Auto) 0.8 % Baso % (Auto) 0.8 % Neut # (Auto) 1.34 L (1.4-6.5) K/uL Lymph # (Auto) 0.58 L (1.2-3.4) K/uL Cedar # (Auto) 0.63 (0.24-0.82) K/uL Eos # (Auto) 0.02 (0-0.50) K/uL Baso # (Auto) 0.02 (0-0.2) K/uL Immature Gran # (Auto) 0.01 (0.00-0.02) K/uL Neutrophils % (Manual) % Lymphocytes % (Manual) % Monocytes % (Manual) % Neutrophils # (Manual) (1.4-6.5) K/uL Lymphocytes # (Manual) (1.2-3.4) K/uL Monocytes # (Manual) (0.24-0.82) K/uL Large Granular Lymphs % # Lrg Granular Lymphs K/uL Smudge Cells Blood Smear Review PT Cancelled INR Cancelled APTT Cancelled PTT Ratio Cancelled Sodium (136-145) mmol/L Potassium (3.5-5.1) mmol/L Chloride (98-107) mmol/L Carbon Dioxide (21-32) mmol/L Anion Gap (3-11) BUN (6-23) mg/dl Creatinine (0.6-1.4) mg/dl Est Cr Clr Drug Dosing Est GFR ( Amer) ml/min Est GFR (Non-Af Amer) ml/min BUN/Creatinine Ratio (10-20) Glucose (70-99(Fasting)) mg/dl Calcium (8.5-10.1) mg/dl Magnesium (1.7-2.4) mg/dl Total Bilirubin (0.2-1.0) mg/dl AST (13-39) U/L ALT (7-52) U/L Alkaline Phosphatase (34-104) U/L Troponin I High Sens (0-20) pg/ml Total Protein (6.0-8.3) gm/dl Albumin (3.4-5.0) gm/dl Globulin (2.5-4.0) gm/dl Albumin/Globulin Ratio (0.9-2) Urine Color Urine Appearance (Clear) Urine pH (4.5-7.5) Ur Specific [place] (1.000-1.030) Urine Protein (Negative) Urine Glucose (UA) (Negative) Urine Ketones (Negative) Urine Blood (Negative) Urine Nitrite (Negative) Urine Bilirubin (Negative) Urine Urobilinogen (Negative) Ur Leukocyte Esterase (Negative) Urine WBC (Auto) (0-5) /hpf Urine RBC (Auto) (0-4) /hpf U Hyaline Cast (Auto) (0-5) /lpf U Epithel Cells (Auto) (0-5) /lpf Urine Bacteria (Auto) (Negative) SARS-CoV-2 (PCR) (Negative) Influenza Type A (PCR) (Neg) Influenza Type B (PCR) (Neg) RSV (RT-PCR) (Neg) PG Care Time/CCT Total # of Minutes Spent Total Time Spent with Patient: Total time spent is greater than 50% in coordination of care (as documented) at patient's floor/unit and/or counseling patient: Coding Level of Care Code 40570 Subseq Obs Care Lvl 3 Diagnoses Chest pain R07.9 Chest pain type: unspecified Generalized weakness R53.1 Hematoma T14.8XXA Constipation K59.00 Chronic venous insufficiency I87.2 Depression F32.9 Hypothyroidism E03.9 Paroxysmal atrial fibrillation I48.0 Thoracic aortic aneurysm (TAA) I71.20 Intractable back pain M54.9 Anemia D64.9 Venous thrombosis I82.90 GERD (gastroesophageal reflux disease) K21.9 Complex sleep apnea syndrome G47.31 (1) Chest pain Chest pain type: unspecified Qualified Code(s): R07.9 - Chest pain, unspecified
[2022-04-24] MEDS: WARFARIN SOD 7.5 MG TAB PO SCH (19:40)
[2022-04-24] MEDS: traZODone HCL 100 MG TAB PO SCH (20:54)
[2022-04-25] MEDS: LEVOTHYROXINE SODIUM 100 MCG TABLET PO SCH (05:43)
--- NOTE | 2022-04-25 06:11 | Electrocardiogram Report ---
Test Reason : Blood Pressure : / mmHG Vent. Rate : 080 BPM Atrial Rate : 080 BPM P-R Int : 142 ms QRS Dur : 134 ms QT Int : 422 ms P-R-T Axes : 090 015 -13 degrees QTc Int : 486 ms Poor data quality, interpretation may be adversely affected Normal sinus rhythm Right bundle branch block Possible Lateral infarct (cited on or before 07-APR-2022) T wave abnormality, consider inferior ischemia Abnormal ECG When compared with ECG of 15-APR-2022 04:58, Vent. rate has increased BY 27 BPM T wave inversion now evident in Inferior leads T wave inversion more evident in Anterior leads Confirmed by Johnny Sebastian ([id number]) on 04/25/2022 6:11:37 AM Referred By: Confirmed By:Johnny Sebastian
[2022-04-25] MEDS: HYDROCODONE/ACETAMOPHEN 5/325MG TAB PO PRN ×3 (07:52→20:06)
[2022-04-25] MEDS: guaiFENesin SUGAR FREE 100 MG/5 ML UDC PO PRN (07:52)
[2022-04-25 07:58] LABS: Eosinophils # (auto) 0.02 K/uL (0-0.50); Eosinophils % (auto) 0.7 %; Hematocrit (blood only) 36.8 % (40.1-51.0); Hemoglobin 12.5 g/dl (14.0-18.0); Lymphocytes # (auto) 1.13 K/uL (1.2-3.4); Lymphocytes % (auto) 41.4 %; Mean Corpuscular Hemoglobin 31.3 pg (25.0-34.0); Mean Platelet Volume 10.7 fL (9.4-12.4); Monocytes # (auto) 0.45 K/uL (0.24-0.82); Monocytes % (auto) 16.5 %; Neutrophils # (auto) 1.13 K/uL (1.4-6.5); Neutrophils % (auto) 41.4 %; Platelet Count 143 K/uL (130-400); RDW Coefficient of Variation 15.1 % (11.5-14.5); RDW Standard Deviation 51.8 fL (36.4-46.3); White Blood Count 2.73 K/ul (4.8-10.8)
[2022-04-25 08:08] LABS: INR 1.4 (0.9-1.1); Prothrombin Time 14.2 Seconds (9.0-12.0)
[2022-04-25 08:25] LABS: BUN Creatinine Ratio 16.9 (10-20); Calcium 8.4 mg/dl (8.5-10.1); Creatinine Clr Calc Pharmacy 148.3 ml/min; Est GFR (African American) 123.1 ml/min; Est GFR (Non-African American) 106.2 ml/min; Magnesium 1.8 mg/dl (1.7-2.4); Potassium 3.9 mmol/L (3.5-5.1)
[2022-04-25] MEDS: AMIODARONE 200 MG TAB PO SCH (09:17)
[2022-04-25] MEDS: BACLOFEN 10 MG TAB PO SCH ×3 (09:17→20:07)
[2022-04-25] MEDS: CHOLECALCIFEROL 1,000 UNITS 25 MCG TAB PO SCH (09:17)
[2022-04-25] MEDS: CYANOCOBALAMIN (B-12) 500 MCG TABLET PO SCH (09:18)
[2022-04-25] MEDS: DOCUSATE SODIUM/SENNA 50/8.6MG TAB PO SCH ×2 (09:18→20:08)
[2022-04-25] MEDS: FLUTICASONE/VILANTEROL 200/25MCG 14 PUFFS/INHALER INH SCH (09:19)
[2022-04-25] MEDS: FUROSEMIDE 40 MG TAB PO SCH (09:19)
[2022-04-25] MEDS: ESCITALOPRAM OXALATE 20 MG TAB PO SCH (09:19)
[2022-04-25] MEDS: MULTIVITAMIN TAB PO SCH (09:20)
[2022-04-25] MEDS: PANTOprazole 40 MG TAB PO SCH ×2 (09:20→20:08)
[2022-04-25] MEDS: POLYETHYLENE (MIRALAX) 17 GM PACK PO SCH ×2 (09:20→20:04)
[2022-04-25] MEDS: LIDOCAINE 5% 1 PATCH TD SCH (09:24)
[2022-04-25] MEDS: ENOXAPARIN 100 MG/1ML SYR SQ SCH ×2 (13:53→21:34)
[2022-04-25] MEDS: WARFARIN SOD 7.5 MG TAB PO SCH (19:01)
[2022-04-25 19:35] LABS: C Reactive Protein 3.18 mg/dl (0-0.5)
[2022-04-25] MEDS: traZODone HCL 100 MG TAB PO SCH (20:08)
--- NOTE | 2022-04-25 21:08 | Orthopedic Consultation ---
Date of Consultation April 25, 2022 Assessment & Plan (1) Hematoma: It is not clear what the cause is but it looks like he has a hematoma involving the medial elbow area. May have been related to prior IV site or blood draw in the setting of anticoagulation. Presently he is neurovascularly intact. While it is painful I do not see any evidence to support a diagnosis of compartment syndrome. A CT scan is pending and will be helpful to evaluate size and location. Elbow x-rays are also ordered. Given the absence of trauma the likelihood of fracture or tendon injury is remote. Elevation has not helped. We can try some gentle compression with a Tubigrip sleeve tomorrow. I think there is likely a lot of inflammation secondary to the hematoma. I do not see any skin compromise. No cellulitis. Surgical decompression potential consideration. Present on Admission?: Yes History of Present Illness Attending Physician: Franklin العراقي MD History of Present Illness Patient is 66 years old. [id number]. He reports being admitted early to mid April. He developed some swelling of the left elbow area at that time. Things seem to worsen in terms of pain and swelling of the left elbow area over the past 2 days. He has been readmitted to the hospital for multiple issues. He is not having any tingling or numbness. He does not report any injury to the elbow or recall having an IV placed in that area. He has been on multiple different forms of anticoagulation. Currently on Coumadin. He reports 10 out of 10 pain at rest worsened with movement. Heat and elevation have not helped. The whole arm hurts but pain is centered on the elbow. Allergies Allergy/AdvReac Type Severity Reaction Status Date / Time Penicillins Allergy Unknown Rash Verified 04/23/22 15:38 sumatriptan [From Imitrex] Allergy Rash Verified 04/23/22 15:38 Home Medications Medication Instructions Recorded Confirmed Type multivitamin 1 tab PO DAILY 05/17/18 04/23/22 History cholecalciferol (vitamin D3) 25 1,000 unit PO DAILY 01/28/19 04/23/22 History mcg (1,000 unit) tablet furosemide 40 mg tablet 40 mg PO DAILY #90 tabs 05/24/21 04/23/22 Rx naloxone 4 mg/actuation nasal 4 mg intranasal Q2M PRN opioid 07/21/21 04/23/22 Rx spray (Narcan) overdose #2 ea albuterol sulfate 90 mcg/actuation 2 puff inhalation Q6H PRN 09/29/21 04/23/22 History aerosol inhaler (ProAir HFA) Shortness Of Breath fluticasone 500 mcg-salmeterol 50 1 inh inhalation BID 09/29/21 04/23/22 History mcg/dose blistr powdr for inhalation (Wixela Inhub) baclofen 10 mg tablet 10 mg PO TID #30 tabs 10/27/21 04/23/22 Rx trazodone 50 mg tablet 100 mg PO HS 90 days #180 tabs 01/26/22 04/23/22 Rx escitalopram oxalate 20 mg tablet 20 mg PO DAILY 02/02/22 04/23/22 History (Lexapro) hydrocodone 5 mg-acetaminophen 325 1 tab PO BID PRN break through 02/02/22 04/23/22 Rx mg tablet pain #60 tabs levothyroxine 100 mcg tablet 100 mcg PO QAM #90 tabs 02/20/22 04/23/22 Rx amiodarone 200 mg tablet 200 mg PO DAILY #30 tabs 04/18/22 04/23/22 Rx cyanocobalamin (vitamin B-12) 1,000 mcg PO DAILY #30 caps 04/18/22 04/23/22 Rx 1,000 mcg capsule pantoprazole 40 mg tablet,delayed 40 mg PO BID #60 tabs 04/18/22 04/23/22 Rx release polyethylene glycol 3350 8.5 gram 17 gm PO BID #72 ea 04/18/22 04/23/22 Rx oral powder packet sennosides 8.6 mg-docusate sodium 1 tab PO BID #60 tabs 04/18/22 04/23/22 Rx 50 mg tablet (Senokot-S) warfarin 5 mg tablet 5 mg PO DAILY@1600 #30 tabs 04/18/22 04/23/22 Rx Patient History Medical History (Updated 04/24/22 @ 15:26 by Lilo Snider MD) Acute thrombosis of cephalic vein Anemia Atrial fibrillation Chronic venous stasis dermatitis Constipation Depression Encounter for pre-operative examination GERD (gastroesophageal reflux disease) History of broken collarbone Hypertension Hypothyroidism 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 with INR goal of 2.0-3.0 Lower extremity venous stasis Lumbar stenosis New onset atrial fibrillation Osteoporosis Paroxysmal atrial fibrillation Paroxysmal atrial fibrillation Pneumonia Postlaminectomy syndrome of lumbosacral region Presence of intrathecal pump Sacroiliitis Scoliosis Testicular hernia history of Thoracic aortic aneurysm (TAA) Venous thrombosis Surgical History Encounter for post-sterilization vasoplasty History of appendectomy Previous back surgery S/P hernia repair Family History Mother Colitis Brother Colitis Hypertension Sister Hypertension Father Hypertension Prostate cancer Myocardial infarction Denies family history of Ovarian cancer Coronary heart disease Breast cancer Colorectal cancer Social History Smoking Status: Never smoker Second Hand Exposure: No; Hx Alcohol Use: No Hx Substance Use: No Preferred Language: Grenadian Communication Ability: Effective Visual Impairment: Limited Hearing Ability: Normal Clinical Assessment Manager Required: No Beliefs That Will Affect Care: None marital status: Current Living Situation: Spouse and Family current occupational status: disabled Other Information That Helps Us Care for You: No Feels Safe at Home: Yes Safety Concerns: Feels Safe At This Time Childhood Exposure to Second-Hand Smoke: No caffeine: Yes Dental Care, Regularly: Yes Physical Activity Frequency: Daily Seatbelt Use: always Sunscreen Use: Yes Assistive Devices: Cane, Scooter/Electric Scooter and Walker Review of Systems Review of Systems: Past history noted and reviewed. Physical Exam Physical Exam: There is moderately substantial swelling mainly around the left medial elbow going up into the arm slightly but more so into the proximal forearm. The area is tender to palpation it is ecchymotic and firm. Elbow flexion and extension 0/45/90 with some pain. Supination 60 pronation full. No pain. He can flex and extend the elbow against resistance 4+ to 5- out of 5 strength. The dorsal forearm compartment and the distal two thirds of the volar forearm compartment are soft. The arm compartments are soft. Median radial and ulnar motor and sensory functions are intact. He has flexion deformity of bilateral little fingers. The hands are warm with capillary refill less than 2 seconds radial pulses 2+. 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 He has full active and passive range of motion of the wrist as well as full active and passive movement of the fingers with minimal increase in discomfort. Results & Data ([facility]) Vital Signs (Past 12 Hours) Vital Signs Temp Pulse Resp BP Pulse Ox O2 Del Method 04/25/22 20:10 36.6 C 86 16 156/88 H 98 Room Air 04/25/22 15:35 36.4 C L 72 16 126/75 95 Room Air Laboratory Results 04/25/22 04/25/22 04/25/22 Range/Units 18:38 18:38 18:38 WBC (4.8-10.8) K/ul RBC (4.63-6.08) M/uL Hgb (14.0-18.0) g/dl Hct (40.1-51.0) % MCV (80.0-100.0) fL MCH (25.0-34.0) pg MCHC (32.0-36.0) g/dL RDW Std Deviation (36.4-46.3) fL RDW Coeff of Kj (11.5-14.5) % Plt Count (130-400) K/uL MPV (9.4-12.4) fL Immature Gran % (Auto) % Neut % (Auto) % Lymph % (Auto) % [place] % (Auto) % Eos % (Auto) % Baso % (Auto) % Neut # (Auto) (1.4-6.5) K/uL Lymph # (Auto) (1.2-3.4) K/uL [place] # (Auto) (0.24-0.82) K/uL Eos # (Auto) (0-0.50) K/uL Baso # (Auto) (0-0.2) K/uL Immature Gran # (Auto) (0.00-0.02) K/uL ESR 20 (0-20) mm/hr PT (9.0-12.0) Seconds INR (0.9-1.1) Sodium (136-145) mmol/L Potassium (3.5-5.1) mmol/L Chloride (98-107) mmol/L Carbon Dioxide (21-32) mmol/L Anion Gap (3-11) BUN (6-23) mg/dl Creatinine (0.6-1.4) mg/dl Est Cr Clr Drug Dosing ml/min Est GFR ( Amer) ml/min Est GFR (Non-Af Amer) ml/min BUN/Creatinine Ratio (10-20) Glucose (70-99(Fasting)) mg/dl Calcium (8.5-10.1) mg/dl Magnesium (1.7-2.4) mg/dl Total Creatine Kinase 68 (30-223) U/L C-Reactive Protein 3.18 H (0-0.5) mg/dl Procalcitonin < 0.05 (0-0.5) ng/ml 04/25/22 04/25/22 04/25/22 Range/Units 07:11 07:11 07:11 WBC 2.73 L (4.8-10.8) K/ul RBC 4.00 L (4.63-6.08) M/uL Hgb 12.5 L (14.0-18.0) g/dl Hct 36.8 L (40.1-51.0) % MCV 92.0 (80.0-100.0) fL MCH 31.3 (25.0-34.0) pg MCHC 34.0 (32.0-36.0) g/dL RDW Std Deviation 51.8 H (36.4-46.3) fL RDW Coeff of Kj 15.1 H (11.5-14.5) % Plt Count 143 (130-400) K/uL MPV 10.7 (9.4-12.4) fL Immature Gran % (Auto) 0.0 % Neut % (Auto) 41.4 % Lymph % (Auto) 41.4 % [place] % (Auto) 16.5 % Eos % (Auto) 0.7 % Baso % (Auto) 0.0 % Neut # (Auto) 1.13 L (1.4-6.5) K/uL Lymph # (Auto) 1.13 L (1.2-3.4) K/uL [place] # (Auto) 0.45 (0.24-0.82) K/uL Eos # (Auto) 0.02 (0-0.50) K/uL Baso # (Auto) 0.00 (0-0.2) K/uL Immature Gran # (Auto) 0.00 (0.00-0.02) K/uL ESR (0-20) mm/hr PT 14.2 H (9.0-12.0) Seconds INR 1.4 H (0.9-1.1) Sodium 138 (136-145) mmol/L Potassium 3.9 (3.5-5.1) mmol/L Chloride 105 (98-107) mmol/L Carbon Dioxide 27 (21-32) mmol/L Anion Gap 6 (3-11) BUN 10 (6-23) mg/dl Creatinine 0.59 L (0.6-1.4) mg/dl Est Cr Clr Drug Dosing 148.3 ml/min Est GFR ( Amer) 123.1 ml/min Est GFR (Non-Af Amer) 106.2 ml/min BUN/Creatinine Ratio 16.9 (10-20) Glucose 87 (70-99(Fasting)) mg/dl Calcium 8.4 L (8.5-10.1) mg/dl Magnesium 1.8 (1.7-2.4) mg/dl Total Creatine Kinase (30-223) U/L C-Reactive Protein (0-0.5) mg/dl Procalcitonin (0-0.5) ng/ml
--- NOTE | 2022-04-25 22:21 | Hospitalist Progress Note ---
Date of Service April 25, 2022 Assessment & Plan (1) Hematoma: Plan: left arm at site of previous thrombophlebitis now on Lovenox and coumadin (bridging) causing pain but no associated signs or symptoms of infection of hematoma -elevate limb above heart -increase frequency of hydrocodone prn -warm compresses did not help -hgb stable-ok to continue Lovenox/coumadin -follow CBC On 04/25 Patient appears to be worseneing. Swelling outside delineatd line. Will obtain a cat scan. No signs of infection, will order culture, inflammatory markers. Concern over compartment syndrom,e will consult ortho, may need surgical decompression if conservative management does not help. Will hold off antibiotics as no fever or signs of infection. Also consulted vascular surgery. (2) Chest pain: Plan: Thom is a 66-year-old male with a past medical history of hypertension, prediabetes, hypothyroidism, depression, insomnia, chronic back pain with intrathecal pump, BPH, with a recent prolonged admission for RSV with pneumonia, respiratory failure and colonic ileus,who presents with chest pain and generalized weakness after being home for 5 days. Shortness of breath/rib pain suspect deconditioning and costochondritis TTP over lower ribs no new PNA, no fevers/chills, no hypoxia Troponin normal, no EKG changes therapeutically Anticoagulated - Low suspicion for amio toxicity at this time Definitely costochondritis based on exam continue lidocaine patches and Voltaren gel -increase hydrocodone to 1 tab q4h prn mod-severe pain -w/ diminished BS at bases--> add on ICS (3) Generalized weakness: Plan: 2/2 prolonged (17 day) recent hospital stay. He was ambulating 80 feet during that stay with PT and felt well enough to go home at the time But obviously was not doing as well as he htought he was once he returned home PT/OT recommending rehab here referrals made to [facility] (4) Constipation: Plan: with severe colonic ileus prior hospitalization, now moving bowels regularly -continue Miralax and senna/docusate bid (5) Chronic venous insufficiency: Plan: noted (6) Depression: Plan: stable Continue Lexapro, trazodone nightly (7) Hypothyroidism: Plan: TSH recently normal, continue Synthroid 100 mcg daily (8) Paroxysmal atrial fibrillation: Plan: last admission had new diagnosis of WESLEY. AV kayla agents caused significant hypotension and was started on amiodarone Sinus on admission and examines in regular rhythm not on tele - Continue amiodarone 200mg daily Continue warfarin/Lovenox bridge (9) Thoracic aortic aneurysm (TAA): Plan: Thoracic aortic aneurysm Continued outpatient surveillance, no acute change (10) Intractable back pain: Plan: Chronic back pain With postlaminectomy syndrome of lumbosacral region, with spinal cord stimulator in place with Dilaudid pump Follows with pain management Continue pain pump Patient endorses some intermittent numbness/tingling in his saddle, none present at time of exam. No bowel/bladder incontinence, does get some right foot tingling intermittently in the heel. 5/5 strength to ankle dorsiflexion/plantarflexion, 4/5 strength limited by pain to hip flexion bilaterally - Given new/worsened saddle anesthesia (11) Anemia: Plan: Hemoglobin 12 down from 13, some blood loss may be from hematoma in arm No obvious bleeding anywhere else and just had EGD/colonoscopy last admission without bleeding Ferritin 83 on 04/16/2022, transferrin saturation 23% 04/16, normal serum iron and low TIBC suggestive of anemia of chronic disease B12 low normal at 323 last admission and folate normal With smudge cells but is leukopenic, no evidence of CLL on peripheral smear peripheral smear here interpreted as anemia of chronic disease (12) Venous thrombosis: Plan: Cephalic vein thrombosis Clots occurred while on Eliquis last admission suggesting failure; patient was switched to warfarin after Lovenox bridge on prior discharge due to concern for recurrent clots and suspected hypercoagulable state remains subtherapeutic at INR 1.4 -continue therapeutic Lovenox dosing bid and coumadin dose increased to 7.5mg po daily -follow INR in AM Lupus anticoagulant weak positive from previous admission--> recommend repeat testing in 12 weeks anti-phospholipid abs negative homocysteine level elevated at 14.4 and had low normal B12 previously -continue to replace B12 for hyperhomocysteinemia -recommend outpt f/u with Hematology -is already set up with anticoagulation clinic from prior admission but first appointment to be cancelled as is admitted to hospital (13) GERD (gastroesophageal reflux disease): Plan: found to have gastritis on EGD last admit Continue PPI twice daily (14) Complex sleep apnea syndrome: Plan Dispo-continued stay on med/surg PT/OT recommending rehab, referral placed to [facility] as per my d/w CM Admission and Anticipated Discharge Date Admission Date: April 25, 2022 Subjective Patient reports severe pain to his left arm. Review of Systems Review of Systems: All systems reviewed & are unremarkable except as noted in HPI & below Physical Exam Constitutional: WD/WN, vitals as above Eyes: + anicteric sclerae Neck: trachea midline, no thyromegaly Respiratory: normal respiratory effort, lungs clear to auscultation (except diminished BS at bases bilat) Cardiovascular: Rate/Rhythm: regular rate and regular rhythm Heart Sounds: no murmur Extremities: + edema (1+ woody edema legs bilat,left forearm 1+) Gastrointestinal (Abdomen): normal bowel sounds, soft, nontender, no hepatosplenomegaly Musculoskeletal: Extremities: + extremities abnormal to inspection (LUE as above), no cyanosis and no clubbing Skin: no rashes, warm and dry + rash (purplish discoloration legs,chronic venous stasis changes bilat) Neurologic: moves all extremities and awake; no focal motor deficits Psychiatric: A+Ox3, euthymic affect Results & Data Results & Data ([facility]) Vital Signs (Past 12 Hours) Vital Signs Temp Pulse Resp BP Pulse Ox O2 Del Method 04/25/22 20:10 36.6 C 86 16 156/88 H 98 Room Air 04/25/22 15:35 36.4 C L 72 16 126/75 95 Room Air PG Care Time/CCT Total # of Minutes Spent Total Time Spent with Patient: Total time spent is greater than 50% in coordination of care (as documented) at patient's floor/unit and/or counseling patient: Coding Level of Care Code 73935 Subseq Hosp Care Lvl 3 Diagnoses Hematoma T14.8XXA Chest pain R07.9 Chest pain type: unspecified Generalized weakness R53.1 Constipation K59.00 Chronic venous insufficiency I87.2 Depression F32.9 Hypothyroidism E03.9 Paroxysmal atrial fibrillation I48.0 Thoracic aortic aneurysm (TAA) I71.20 Intractable back pain M54.9 Anemia D64.9 Venous thrombosis I82.90 GERD (gastroesophageal reflux disease) K21.9 Complex sleep apnea syndrome G47.31 (1) Chest pain Chest pain type: unspecified Qualified Code(s): R07.9 - Chest pain, unspecified
[2022-04-26] MEDS: LEVOTHYROXINE SODIUM 100 MCG TABLET PO SCH (05:49)
[2022-04-26] MEDS: HYDROCODONE/ACETAMOPHEN 5/325MG TAB PO PRN ×5 (05:49→22:24)
[2022-04-26] MEDS: PANTOprazole 40 MG TAB PO SCH ×2 (07:57→20:37)
[2022-04-26] MEDS: MULTIVITAMIN TAB PO SCH (07:58)
[2022-04-26] MEDS: FUROSEMIDE 40 MG TAB PO SCH (07:58)
[2022-04-26] MEDS: ESCITALOPRAM OXALATE 20 MG TAB PO SCH (07:58)
[2022-04-26] MEDS: AMIODARONE 200 MG TAB PO SCH (07:58)
[2022-04-26] MEDS: POLYETHYLENE (MIRALAX) 17 GM PACK PO SCH ×2 (07:58→20:37)
[2022-04-26] MEDS: CYANOCOBALAMIN (B-12) 500 MCG TABLET PO SCH (07:58)
[2022-04-26] MEDS: CHOLECALCIFEROL 1,000 UNITS 25 MCG TAB PO SCH (07:58)
[2022-04-26] MEDS: BACLOFEN 10 MG TAB PO SCH ×3 (07:59→20:37)
[2022-04-26] MEDS: FLUTICASONE/VILANTEROL 200/25MCG 14 PUFFS/INHALER INH SCH (07:59)
[2022-04-26] MEDS: LIDOCAINE 5% 1 PATCH TD SCH (07:59)
[2022-04-26] MEDS: DOCUSATE SODIUM/SENNA 50/8.6MG TAB PO SCH ×2 (07:59→20:37)
--- NOTE | 2022-04-26 09:09 | XRay Report ---
XR elbow LT min 3V routine HISTORY: 66 years-old Male pain acute pain and swelling of the left elbow COMPARISON: Left forearm CT of same day TECHNIQUE: 3 views of the left elbow FINDINGS: Considerable soft tissue swelling of the distal upper arm, elbow and proximal forearm is most pronoun noe medially. Soft tissue collection within the volar and medial tissues measures up to approximately 9.6 cm. No acute fracture or dislocation identified. IMPRESSION: 1. No acute fracture or dislocation identified. 2. Soft tissue swelling with volar medial collection of the elbow. Please refer to the forearm CT of same day for additional details. ACT 112: Negative or not required by law. The above report was generated using voice recognition software. It may contain grammatical, syntax o r spelling errors. Electronically signed by: Regulo Shabazz M.D. 04/26/2022 9:07 AM
--- NOTE | 2022-04-26 09:09 | CT Scan Report ---
CT forearm LT wo con HISTORY: 66 years-old Male left arm swelling acute pain and swelling of the left upper extremity COMPARISON: Left elbow radiographs of same day, CTA chest with CT abdomen and pelvis 04/23/2022 TECHNIQUE: Multiple axial CT images of the left forearm were obtained without the use of IV contrast. A dose lowering technique was used consistent with the principals of TRU. FINDINGS: Limited study secondary to positioning. 10.4 x 4.9 x 10.0 cm collection is noted within the subcutane ous medial tissues of the left upper extremity extending from the distal upper arm into the proximal forearm. This demonstrates layering hematocrit level. Moderate subcutaneous edema of the left elbow a nd forearm. No large joint effusion identified. Ill-defined linear lucency of the radial head. Left nephrolithiasis. Moderate colonic fecal retention. Partially imaged catheter within the central canal. Lumbar spinal fusion hardware. Sclerotic foci of the left iliac bone are likely postsurgical. No displaced acute fracture or dislocation of the forearm identified considering the limitations of t he study. Osteoarthritis of the hand and wrist. IMPRESSION: 1. Limited exam secondary to positioning. There is an ill-defined linear lucency of the radial head w hich may be artifactual or represent a subtle acute nondisplaced fracture. Correlate with point tende rness. 2. 10 cm hematoma of the medial elbow and forearm predominantly appears to be located within the subc utaneous tissues. Moderate adjacent subcutaneous edema/hemorrhage. 3. Additional findings as above. ACT 112: Negative or not required by law. The above report was generated using voice recognition software. It may contain grammatical, syntax o r spelling errors. Electronically signed by: Regulo Shabazz M.D. 04/26/2022 9:07 AM
[2022-04-26] MEDS ORDERED: PHYTONADIONE 5 MG in DEXTROSE 5% 50 ML IV ONE (10:30)
[2022-04-26 10:41] LABS: Basophils # (auto) 0.01 K/uL (0-0.2); Basophils % (auto) 0.3 %; Eosinophils # (auto) 0.04 K/uL (0-0.50); Eosinophils % (auto) 1.4 %; Hematocrit (blood only) 35.1 % (40.1-51.0); Lymphocytes # (auto) 0.97 K/uL (1.2-3.4); Lymphocytes % (auto) 33.1 %; Mean Corpuscular Hemoglobin 31.3 pg (25.0-34.0); Mean Corpuscular Hgb Conc 34.2 g/dL (32.0-36.0); Mean Corpuscular Volume 91.4 fL (80.0-100.0); Mean Platelet Volume 10.1 fL (9.4-12.4); Monocytes # (auto) 0.58 K/uL (0.24-0.82); Monocytes % (auto) 19.8 %; Neutrophils # (auto) 1.33 K/uL (1.4-6.5); Neutrophils % (auto) 45.4 %; Platelet Count 136 K/uL (130-400); RDW Coefficient of Variation 15.2 % (11.5-14.5); RDW Standard Deviation 50.7 fL (36.4-46.3); Red Blood Count 3.84 M/uL (4.63-6.08); White Blood Count 2.93 K/ul (4.8-10.8)
--- NOTE | 2022-04-26 10:50 | Progress Notes ---
DATE OF SERVICE: 04/26/2022 Patient reports increased size, redness and pain with the left elbow. He has also noted some tingling in his fingers. He is afebrile. His vital signs are stable. ESR 20, CRP 3. Elbow x-ray shows no acute bony injury, fracture, or dislocation. No arthritis, but there is soft tissue swelling. Forearm CT shows a subcutaneous 4 x 10 cm hematoma. Reports noted. On exam, arm and forearm compartments remain soft. There has been possibly some increased size of the elbow area with marked tenderness to touch over the medial elbow with bruising. Capillary refill less than 2 seconds. He reports mild numbness and tingling at the tips of all of his fingers. Radial pulses 2+. Median, radial, and ulnar motor and sensory functions are intact. He has supination to neutral, pronation of 60 degrees, elbow flexion to 90, extension to 60. He is able to make a fist, fully straighten and flex his fingers. He is able to flex and extend the wrist. There is no significant increased pain with passive or active movement of the fingers and wrist. The arm and forearm are not swollen. IMPRESSION:leftelbow subcutaneous hematoma. PLAN: I discussed my findings with the patient. This includes observation, stopping blood thinners and possibly considering surgery. I do not see an emergent need for any operative intervention at present. There is no evidence of compartment syndrome. However, because of the size of the lesion and potential increase in size, I would recommend that we stop the blood thinners. In an effort to promote healing and relief pain, I think evacuation would be appropriate. He is eating breakfast today and he received his blood thinners last evening. INR was 1.4 and he declined rechecked today. I think it is reasonable to prepare him for surgery tomorrow. I spoke with Dr. Crowell and he agrees. Vitamin K will be given to reverse the INR. Coumadin and Lovenox will be held. Dr. cesar will be physician web solutions architect for the holiday and I will discuss the case with him. For now, we will try to keep him comfortable with pain medication, elevation, etc. Job ID: [id number] [facility]
[2022-04-26 10:51] LABS: INR 1.7 (0.9-1.1); Prothrombin Time 17.2 Seconds (9.0-12.0)
[2022-04-26 11:05] LABS: C Reactive Protein 3.39 mg/dl (0-0.5); Calcium 8.3 mg/dl (8.5-10.1); Creatinine Clr Calc Pharmacy 143.4 ml/min; Est GFR (African American) 121.5 ml/min; Est GFR (Non-African American) 104.8 ml/min; Potassium 3.3 mmol/L (3.5-5.1)
--- NOTE | 2022-04-26 12:28 | Orthopedic Progress Note ---
Date of Service April 26, 2022 Assessment & Plan (1) Hematoma: Plan: Dr. Holley was consulted last evening on the patient a 66 yo male with left forearm hematoma and severe pain who is on anticoagulation. I saw the patient today ass I will be on-call over the holiday weekend and will be assuming his orthopedic care. Discussed the risks and benefits of conservative treatment vs surgical intervention. As the patient is not reversed at this time he would benefit from conservative treatment and see if the hematoma resolves. Unfortunately, the OR is only open for emergencies on . He did sign the consent form for I&D of the left arm. Will re-evaluate tomorrow and if limb threatening will add-on tomorrow, otherwise will continue to monitor and if not resolved and patient is still in significant pain Sunday and wants to proceed with surgery he has already been placed on the add-on list for Sunday. Will need to be reversed, NPO after midnight with IV fluids. IV site will need to be changed out of left hand to be out of the surgical field. Antibiotics on-call to OR. He was placed in a Cruz compressive dressing. Primary team notified. Present on Admission?: Yes Admission and Anticipated Discharge Date Admission Date: April 25, 2022 Subjective Patient reports severe pain to his left arm. Physical Exam Physical Exam: LLU: Sensation to Light touch intact distally. BCR < 2 sec. Motor median, radial, ulna, AIN, PIN intact. IV dorsum left hand. Diffuse swelling upper and forearm. Bruising medial elbow, firm, and exquisitely tender. Forearm and upper arm otherwise soft. No evidence of compartment syndrome. Results & Data ([facility]) Vital Signs (Past 12 Hours) Vital Signs Temp Pulse Resp BP Pulse Ox O2 Del Method 04/26/22 07:30 36.8 C 65 16 151/70 H 94 Room Air Laboratory Results Laboratory Results WBC 2.93 K/ul (4.8-10.8) L 04/26/22 10:28 RBC 3.84 M/uL (4.63-6.08) L 04/26/22 10:28 Hgb 12.0 g/dl (14.0-18.0) L 04/26/22 10:28 Hct 35.1 % (40.1-51.0) L 04/26/22 10:28 MCV 91.4 fL (80.0-100.0) 04/26/22 10:28 MCH 31.3 pg (25.0-34.0) 04/26/22 10: MCHC 34.2 g/dL (32.0-36.0) 04/26/22 10:28 RDW Std Deviation 50.7 fL (36.4-46.3) H 04/26/22 10: RDW Coeff of Kj 15.2 % (11.5-14.5) H 04/26/22 10:28 Plt Count 136 K/uL (130-400) 04/26/22 10: MPV 10.1 fL (9.4-12.4) 04/26/22 10: Immature Gran % (Auto) 0.0 % 04/26/22 10:28 Neut % (Auto) 45.4 % 04/26/22 10:28 Lymph % (Auto) 33.1 % 04/26/22 10:28 [place] % (Auto) 19.8 % 04/26/22 10:28 Eos % (Auto) 1.4 % 04/26/22 10:28 Baso % (Auto) 0.3 % 04/26/22 10: Neut # (Auto) 1.33 K/uL (1.4-6.5) L 04/26/22 10:28 Lymph # (Auto) 0.97 K/uL (1.2-3.4) L 04/26/22 10:28 [place] # (Auto) 0.58 K/uL (0.24-0.82) 04/26/22 10:28 Eos # (Auto) 0.04 K/uL (0-0.50) 04/26/22 10:28 Baso # (Auto) 0.01 K/uL (0-0.2) 04/26/22 10:28 Immature Gran # (Auto) 0.00 K/uL (0.00-0.02) 04/26/22 10:28 Neutrophils % (Manual) 37 % 04/24/22 08:18 Lymphocytes % (Manual) 28 % 04/24/22 08:18 Monocytes % (Manual) 13 % 04/24/22 08:18 Neutrophils # (Manual) 0.98 K/uL (1.4-6.5) L 04/24/22 08:18 Lymphocytes # (Manual) 0.74 K/uL (1.2-3.4) L 04/24/22 08:18 Monocytes # (Manual) 0.34 K/uL (0.24-0.82) 04/24/22 08:18 Large Granular Lymphs 22 % 04/24/22 08:18 # Lrg Granular Lymphs 0.58 K/uL 04/24/22 08:18 Smudge Cells Present 04/24/22 08:18 Blood Smear Review 04/24/22 08:18 ESR 20 mm/hr (0-20) 04/25/22 18:38 PT 17.2 Seconds (9.0-12.0) H 04/26/22 10:28 INR 1.7 (0.9-1.1) H 04/26/22 10:28 APTT 62.6 Seconds (21.0-31.0) H* 04/23/22 15:45 PTT Ratio 2.3 04/23/22 15:45 Sodium 138 mmol/L (136-145) 04/26/22 10:28 Potassium 3.3 mmol/L (3.5-5.1) L 04/26/22 10:28 Chloride 105 mmol/L (98-107) 04/26/22 10:28 Carbon Dioxide 27 mmol/L (21-32) 04/26/22 10:28 Anion Gap 6 (3-11) 04/26/22 10:28 BUN 11 mg/dl (6-23) 04/26/22 10:28 Creatinine 0.61 mg/dl (0.6-1.4) 04/26/22 10:28 Est Cr Clr Drug Dosing 143.4 ml/min 04/26/22 10:28 Est GFR ( Amer) 121.5 ml/min 04/26/22 10:28 Est GFR (Non-Af Amer) 104.8 ml/min 04/26/22 10:28 BUN/Creatinine Ratio 18.0 (10-20) 04/26/22 10:28 Glucose 114 mg/dl (70-99(Fasting)) H 04/26/22 10:28 Calcium 8.3 mg/dl (8.5-10.1) L 04/26/22 10:28 Magnesium 1.8 mg/dl (1.7-2.4) 04/25/22 07:11 Total Bilirubin 0.6 mg/dl (0.2-1.0) 04/23/22 15:25 AST 51 U/L (13-39) H 04/23/22 15:25 ALT 38 U/L (7-52) 04/23/22 15:25 Alkaline Phosphatase 61 U/L (34-104) 04/23/22 15:25 Total Creatine Kinase 68 U/L (30-223) 04/25/22 18:38 Troponin I High Sens 7.2 pg/ml (0-20) 04/23/22 15:25 Troponin I High Sens Cancelled 04/23/22 15:25 C-Reactive Protein 3.39 mg/dl (0-0.5) H 04/26/22 10:28 Total Protein 6.7 gm/dl (6.0-8.3) 04/23/22 15:25 Albumin 3.9 gm/dl (3.4-5.0) 04/23/22 15:25 Globulin 2.8 gm/dl (2.5-4.0) 04/23/22 15:25 Albumin/Globulin Ratio 1.4 (0.9-2) 04/23/22 15:25 Procalcitonin < 0.05 ng/ml (0-0.5) 04/25/22 18:38 Urine Color Yellow 04/23/22 Unknown Urine Appearance Clear (Clear) 04/23/22 Unknown Urine pH 6.5 (4.5-7.5) 04/23/22 Unknown Ur Specific [place] 1.036 (1.000-1.030) H 04/23/22 Unknown Urine Protein Negative (Negative) 04/23/22 Unknown Urine Glucose (UA) Negative (Negative) 04/23/22 Unknown Urine Ketones Trace (Negative) H 04/23/22 Unknown Urine Blood 2+ (Negative) H 04/23/22 Unknown Urine Nitrite Negative (Negative) 04/23/22 Unknown Urine Bilirubin Negative (Negative) 04/23/22 Unknown Urine Urobilinogen Negative (Negative) 04/23/22 Unknown Ur Leukocyte Esterase Negative (Negative) 04/23/22 Unknown Urine WBC (Auto) 1-5 /hpf (0-5) 04/23/22 Unknown Urine RBC (Auto) >30 /hpf (0-4) H 04/23/22 Unknown U Hyaline Cast (Auto) 1-5 /lpf (0-5) 04/23/22 Unknown U Epithel Cells (Auto) 0-5 /lpf (0-5) 04/23/22 Unknown Urine Bacteria (Auto) Negative (Negative) 04/23/22 Unknown SARS-CoV-2 (PCR) NEGATIVE (Negative) 04/23/22 16:00 Influenza Type A (PCR) Negative (Neg) 04/23/22 16:00 Influenza Type B (PCR) Negative (Neg) 04/23/22 16:00 RSV (RT-PCR) Negative (Neg) 04/23/22 16:00 Impressions Chest X-Ray 04/23/22 15:07 XR chest 1V portable HISTORY: Shortness of breath. COMPARISON: Chest 04/15/2022. FINDINGS: No pneumothorax. There are low lung volumes. The heart remains mildly enlarged. There are bibasilar linear densities consistent with subsegmental atelectasis. This remains unchanged. No new focal lung consolidations to suggest a pneumonia. No evidence for pulmonary edema. Spinal stimulator leads again noted. IMPRESSION: No change in bibasilar linear densities. This favors atelectasis. A pneumonia could also have a similar appearance in the appropriate clinical setting. ACT 112: Negative or not required by law. Electronically signed by: Darian Wiseman M.D. 04/23/2022 3:34 PM Abdomen/Pelvis CT 04/23/22 16:[address] WITH IV CONTRAST CT DOSE: HISTORY: Left-sided abdominal pain. TECHNIQUE: Multiaxial CT images of the abdomen and pelvis were performed following the use of intravenous contrast. A dose lowering technique was utilized adhering to the principles of ALARA. COMPARISON STUDY: Abdomen and pelvis CT 04/11/2022. FINDINGS: The lung bases are better appreciated on the same day chest CT. No pneumoperitoneum. No pneumatosis. Scoliosis again noted. Postoperative changes within the lumbar spine. Benign-appearing sclerotic change within the left iliac bone again noted. Right lower quadrant subcutaneous pain pump device with an intrathecal catheter remains unchanged. There is also a left lower quadrant spinal stimulator pack again noted. The liver, gallbladder, pancreas, spleen, and adrenal glands unremarkable. The right kidney enhances normally. Stable 1.5 cm hypodense lesion within the left kidney. This favors a cyst. Stable left- sided nephrolithiasis. No ureteral stones. No hydronephrosis. The main portal vein is patent. Normal caliber abdominal aorta. No retroperitoneal lymphadenopathy. The metallic artifact results in suboptimal evaluation of the mid to lower abdomen. The bladder is unremarkable. No pelvic free fluid. No bowel wall thickening or obstruction. IMPRESSION: 1. Suboptimal evaluation of the abdomen and pelvis due to the metallic artifact. 2. No definite bowel wall thickening or obstruction. 3. Left-sided nephrolithiasis, unchanged. No ureteral stones. No hydronephrosis. 4. Additional findings as described above. ACT 112: Negative or not required by law. Electronically signed by: Darian Wiseman M.D. 04/23/2022 5:12 PM Chest CTA 04/23/22 16:01 CHEST CTA for PULMONARY ARTERIES CT DOSE: 2049.95 mGy.cm HISTORY: Shortness of breath. TECHNIQUE: Multiaxial CT images of the chest were performed following the intravenous administration of contrast to evaluate the pulmonary arteries. Maximal intensity projection images were also obtained. A dose lowering technique was utilized adhering to the principles of ALARA. COMPARISON STUDY: Chest CTA 04/01/2022. FINDINGS: Severe scoliosis. Intrathecal catheter and spinal stimulator leads are noted. The heart remains normal in size. Trace right pleural effusion which has improved. No pericardial effusion. Normal thyroid gland. A few prominent mediastinal lymph nodes remain stable. No hilar lymphadenopathy. Normal esophagus. No evidence for an aortic dissection. Nondiagnostic evaluation of the right lower lobe subsegmental pulmonary arteries due to the respiratory motion artifact. Otherwise, the remaining pulmonary arteries show no filling defects to suggest a pulmonary embolus. No acute fractures within the visualized osseous structures. No pneumothorax. The central airways are patent. Mild right bronchial wall thickening has improved. There are few bibasilar linear densities likely representing subsegmental atelectasis. No evidence for pulmonary edema. IMPRESSION: 1. No evidence for a pulmonary embolus with limitations as described above. 2. Low lung volumes with basilar linear densities likely representing subsegmental atelectasis. 3. Prominent mediastinal lymph nodes remain stable. 4. Interval improvement in the trace right pleural effusion. 5. Please refer to the same day abdomen and pelvis CT for further evaluation of the abdominal structures. ACT 112: Negative or not required by law. Electronically signed by: Darian Wiseman M.D. 04/23/2022 5:[address] 04/25/22 17:48 CT forearm LT wo con HISTORY: 66 years-old Male left arm swelling acute pain and swelling of the left upper extremity COMPARISON: Left elbow radiographs of same day, CTA chest with CT abdomen and pelvis 04/23/2022 TECHNIQUE: Multiple axial CT images of the left forearm were obtained without the use of IV contrast. A dose lowering technique was used consistent with the principals of TRU. FINDINGS: Limited study secondary to positioning. 10.4 x 4.9 x 10.0 cm collection is noted within the subcutaneous medial tissues of the left upper extremity extending from the distal upper arm into the proximal forearm. This demonstrates layering hematocrit level. Moderate subcutaneous edema of the left elbow and forearm. No large joint effusion identified. Ill-defined linear lucency of the radial head. Left nephrolithiasis. Moderate colonic fecal retention. Partially imaged catheter within the central canal. Lumbar spinal fusion hardware. Sclerotic foci of the left iliac bone are likely postsurgical. No displaced acute fracture or dislocation of the forearm identified considering the limitations of the study. Osteoarthritis of the hand and wrist. IMPRESSION: 1. Limited exam secondary to positioning. There is an ill-defined linear lucency of the radial head which may be artifactual or represent a subtle acute nondisplaced fracture. Correlate with point tenderness. 2. 10 cm hematoma of the medial elbow and forearm predominantly appears to be located within the subcutaneous tissues. Moderate adjacent subcutaneous edema/hemorrhage. 3. Additional findings as above. ACT 112: Negative or not required by law. The above report was generated using voice recognition software. It may contain grammatical, syntax or spelling errors. Electronically signed by: Regulo Shabazz M.D. 04/26/2022 9:07 AM Elbow X-Ray 04/25/22 20:58 XR elbow LT min 3V routine HISTORY: 66 years-old Male pain acute pain and swelling of the left elbow COMPARISON: Left forearm CT of same day TECHNIQUE: 3 views of the left elbow FINDINGS: Considerable soft tissue swelling of the distal upper arm, elbow and proximal forearm is most pronounced medially. Soft tissue collection within the volar and medial tissues measures up to approximately 9.6 cm. No acute fracture or dislocation identified. IMPRESSION: 1. No acute fracture or dislocation identified. 2. Soft tissue swelling with volar medial collection of the elbow. Please refer to the forearm CT of same day for additional details. ACT 112: Negative or not required by law. The above report was generated using voice recognition software. It may contain grammatical, syntax or spelling errors. Electronically signed by: Regulo Shabazz M.D. 04/26/2022 9:07 AM
[2022-04-26] MEDS: traZODone HCL 100 MG TAB PO SCH (20:37)
--- NOTE | 2022-04-26 22:05 | Hospitalist Progress Note ---
Date of Service April 26, 2022 Assessment & Plan (1) Hematoma: Plan: left arm at site of previous thrombophlebitis now on Lovenox and coumadin (bridging) causing pain but no associated signs or symptoms of infection of hematoma -elevate limb above heart -increase frequency of hydrocodone prn -warm compresses did not help -hgb stable-ok to continue Lovenox/coumadin -follow CBC On 04/26 Hematoma appears larger, forearm is tighter. cat scan obtained, No signs of infection Ortho not concerned about compartment syndrome, CK is normal may need surgical decompression if conservative management does not help. Will hold off antibiotics as no fever or signs of infection. ordered vitamin k (2) Chest pain: Plan: Thom is a 66-year-old male with a past medical history of hypertension, prediabetes, hypothyroidism, depression, insomnia, chronic back pain with intrathecal pump, BPH, with a recent prolonged admission for RSV with pneumonia, respiratory failure and colonic ileus,who presents with chest pain and generalized weakness after being home for 5 days. Shortness of breath/rib pain suspect deconditioning and costochondritis TTP over lower ribs no new PNA, no fevers/chills, no hypoxia Troponin normal, no EKG changes therapeutically Anticoagulated - Low suspicion for amio toxicity at this time Definitely costochondritis based on exam continue lidocaine patches and Voltaren gel -increase hydrocodone to 1 tab q4h prn mod-severe pain -w/ diminished BS at bases--> add on ICS (3) Generalized weakness: Plan: 2/2 prolonged (17 day) recent hospital stay. He was ambulating 80 feet during that stay with PT and felt well enough to go home at the time But obviously was not doing as well as he htought he was once he returned home PT/OT recommending rehab here referrals made to [facility] (4) Constipation: Plan: with severe colonic ileus prior hospitalization, now moving bowels regularly -continue Miralax and senna/docusate bid (5) Chronic venous insufficiency: Plan: noted (6) Depression: Plan: stable Continue Lexapro, trazodone nightly (7) Hypothyroidism: Plan: TSH recently normal, continue Synthroid 100 mcg daily (8) Paroxysmal atrial fibrillation: Plan: last admission had new diagnosis of WESLEY. AV kayla agents caused significant hypotension and was started on amiodarone Sinus on admission and examines in regular rhythm not on tele - Continue amiodarone 200mg daily Continue warfarin/Lovenox bridge (9) Thoracic aortic aneurysm (TAA): Plan: Thoracic aortic aneurysm Continued outpatient surveillance, no acute change (10) Intractable back pain: Plan: Chronic back pain With postlaminectomy syndrome of lumbosacral region, with spinal cord stimulator in place with Dilaudid pump Follows with pain management Continue pain pump Patient endorses some intermittent numbness/tingling in his saddle, none present at time of exam. No bowel/bladder incontinence, does get some right foot tingling intermittently in the heel. 5/5 strength to ankle dorsiflexion/plantarflexion, 4/5 strength limited by pain to hip flexion bilaterally - Given new/worsened saddle anesthesia (11) Anemia: Plan: Hemoglobin 12 down from 13, some blood loss may be from hematoma in arm No obvious bleeding anywhere else and just had EGD/colonoscopy last admission without bleeding Ferritin 83 on 04/16/2022, transferrin saturation 23% 04/16, normal serum iron and low TIBC suggestive of anemia of chronic disease B12 low normal at 323 last admission and folate normal With smudge cells but is leukopenic, no evidence of CLL on peripheral smear peripheral smear here interpreted as anemia of chronic disease (12) Venous thrombosis: Plan: Cephalic vein thrombosis Clots occurred while on Eliquis last admission suggesting failure; patient was switched to warfarin after Lovenox bridge on prior discharge due to concern for recurrent clots and suspected hypercoagulable state remains subtherapeutic at INR 1.4 -continue therapeutic Lovenox dosing bid and coumadin dose increased to 7.5mg po daily -follow INR in AM Lupus anticoagulant weak positive from previous admission--> recommend repeat testing in 12 weeks anti-phospholipid abs negative homocysteine level elevated at 14.4 and had low normal B12 previously -continue to replace B12 for hyperhomocysteinemia -recommend outpt f/u with Hematology -is already set up with anticoagulation clinic from prior admission but first appointment to be cancelled as is admitted to hospital (13) GERD (gastroesophageal reflux disease): Plan: found to have gastritis on EGD last admit Continue PPI twice daily (14) Complex sleep apnea syndrome: Plan Dispo-continued stay on med/surg PT/OT recommending rehab, referral placed to [facility] as per my d/w CM Admission and Anticipated Discharge Date Admission Date: April 25, 2022 Subjective Patient reports he continues to have pain in his left forearm.He states it is getting tighter. He is refusing the compressive dressing Review of Systems Review of Systems: All systems reviewed & are unremarkable except as noted in HPI & below Physical Exam Constitutional: WD/WN, vitals as above Eyes: + anicteric sclerae Neck: trachea midline, no thyromegaly Respiratory: normal respiratory effort, lungs clear to auscultation (except diminished BS at bases bilat) Cardiovascular: Rate/Rhythm: regular rate and regular rhythm Heart Sounds: no murmur Extremities: + edema (1+ woody edema legs bilat,left forearm 1+) Gastrointestinal (Abdomen): normal bowel sounds, soft, nontender, no hepatosplenomegaly Musculoskeletal: Extremities: + extremities abnormal to inspection (LUE as above), no cyanosis and no clubbing Skin: no rashes, warm and dry + rash (purplish discoloration legs,chronic venous stasis changes bilat) hematoma noted on left forearm, it is more swollen and painful to touch Neurologic: moves all extremities and awake; no focal motor deficits Psychiatric: A+Ox3, euthymic affect Results & Data Results & Data ([facility]) Vital Signs (Past 12 Hours) Vital Signs Temp Pulse Resp BP Pulse Ox O2 Del Method 04/26/22 20:41 36.5 C 65 16 123/69 93 Room Air 04/26/22 15:11 95 Room Air 04/26/22 14:35 36.7 C 77 16 104/74 93 Room Air PG Care Time/CCT Total # of Minutes Spent Total Time Spent with Patient: Total time spent is greater than 50% in coordination of care (as documented) at patient's floor/unit and/or counseling patient: Coding Level of Care Code 98259 Subseq Hosp Care Lvl 3 Diagnoses Hematoma T14.8XXA Chest pain R07.9 Chest pain type: unspecified Generalized weakness R53.1 Constipation K59.00 Chronic venous insufficiency I87.2 Depression F32.9 Hypothyroidism E03.9 Paroxysmal atrial fibrillation I48.0 Thoracic aortic aneurysm (TAA) I71.20 Intractable back pain M54.9 Anemia D64.9 Venous thrombosis I82.90 GERD (gastroesophageal reflux disease) K21.9 Complex sleep apnea syndrome G47.31 Time Spent (min) 35 (1) Chest pain Chest pain type: unspecified Qualified Code(s): R07.9 - Chest pain, unspecified
[2022-04-27] MEDS: LEVOTHYROXINE SODIUM 100 MCG TABLET PO SCH (05:54)
[2022-04-27] MEDS: HYDROCODONE/ACETAMOPHEN 5/325MG TAB PO PRN ×4 (05:54→20:17)
[2022-04-27] MEDS ORDERED: ceFAZolin 2000MG 2,000 MG/15 ML SYR IV SCH (06:00)
[2022-04-27 06:51] LABS: Prothrombin Time 10.9 Seconds (9.0-12.0)
--- NOTE | 2022-04-27 08:09 | Anesthesiology Consultation ---
Date of Service April 27, 2022 Assessment & Plan Chart Review Chart Review: Acceptable Risk for Surgery Consults Requested none ASA ASA3 Proposed Anesthesia Anesthesia Type: General Risk / Benefits Reviewed With: PT / POA / Parent / Guardian, Accepts Plan and Informed Consent Obtained History Surgery Operation Date: 04/28/22 07:30 Proposed Procedures p Incision and Drainage Left Arm - Juan Diego Ina Woodruff MD Height/Weight Height: 6 ft Weight: 93.6 kg Allergies Allergy/AdvReac Type Severity Reaction Status Date / Time Penicillins Allergy Unknown Rash Verified 04/23/22 15:38 sumatriptan [From Imitrex] Allergy Rash Verified 04/23/22 15:38 Medications Home Medications Medication Instructions Recorded Confirmed Last Taken multivitamin 1 tab PO DAILY 05/17/18 04/23/22 04/23/22 cholecalciferol (vitamin D3) 25 1,000 unit PO DAILY 01/28/19 04/23/22 04/23/22 mcg (1,000 unit) tablet furosemide 40 mg tablet 40 mg PO DAILY #90 tabs 05/24/21 04/23/22 04/23/22 naloxone 4 mg/actuation nasal 4 mg intranasal Q2M PRN opioid 07/21/21 04/23/22 04/23/22 spray (Narcan) overdose #2 ea albuterol sulfate 90 mcg/actuation 2 puff inhalation Q6H PRN 09/29/21 04/23/22 04/23/22 aerosol inhaler (ProAir HFA) Shortness Of Breath fluticasone 500 mcg-salmeterol 50 1 inh inhalation BID 09/29/21 04/23/22 04/23/22 mcg/dose blistr powdr for inhalation (Viviela Inhub) baclofen 10 mg tablet 10 mg PO TID #30 tabs 10/27/21 04/23/22 04/23/22 trazodone 50 mg tablet 100 mg PO HS 90 days #180 tabs 01/26/22 04/23/22 04/22/22 escitalopram oxalate 20 mg tablet 20 mg PO DAILY 02/02/22 04/23/22 04/23/22 (Lexapro) hydrocodone 5 mg-acetaminophen 325 1 tab PO BID PRN break through 02/02/22 04/23/22 04/23/22 mg tablet pain #60 tabs levothyroxine 100 mcg tablet 100 mcg PO QAM #90 tabs 02/20/22 04/23/22 04/23/22 amiodarone 200 mg tablet 200 mg PO DAILY #30 tabs 04/18/22 04/23/22 04/23/22 cyanocobalamin (vitamin B-12) 1,000 mcg PO DAILY #30 caps 04/18/22 04/23/22 04/23/22 1,000 mcg capsule pantoprazole 40 mg tablet,delayed 40 mg PO BID #60 tabs 04/18/22 04/23/22 04/23/22 release polyethylene glycol 3350 8.5 gram 17 gm PO BID #72 ea 04/18/22 04/23/22 04/23/22 oral powder packet sennosides 8.6 mg-docusate sodium 1 tab PO BID #60 tabs 04/18/22 04/23/22 04/23/22 50 mg tablet (Senokot-S) warfarin 5 mg tablet 5 mg PO DAILY@1600 #30 tabs 04/18/22 04/23/22 04/22/22 Active Medications Generic Name Dose Route Start Last Admin Trade Name Freq PRN Reason Stop Dose Admin Hydrocodone Bitart/Acetaminophen 1 tab 04/24/22 15:07 04/27/22 15:58 Hydrocodone/Acetamophen 5/325mg Tab PO 05/07/22 20:30 1 tab Q4H PRN Administration moderate-severe pain Amiodarone HCl 200 mg 04/24/22 09:00 04/27/22 08:33 Amiodarone 200 Mg Tab PO 05/24/22 08:59 200 mg DAILY SHANKAR Administration Baclofen 10 mg 04/23/22 21:00 04/27/22 13:55 Baclofen 10 Mg Tab PO 05/23/22 20:59 10 mg TID SHANKAR Administration Cyanocobalamin 1,000 mcg 04/24/22 09:00 04/27/22 08:33 Cyanocobalamin (B-12) 500 Mcg Tablet PO 05/24/22 08:59 1,000 mcg DAILY SHANKAR Administration Enoxaparin Sodium 90 mg 04/23/22 22:00 04/25/22 21:34 Enoxaparin 100 Mg/1ml Syr SQ 05/23/22 20:59 90 mg Q12H SHANKAR Administration Escitalopram Oxalate 20 mg 04/24/22 09:00 04/27/22 08:31 Escitalopram Oxalate 20 Mg Tab PO 05/24/22 08:59 20 mg DAILY SHANKAR Administration Fluticasone/Vilanterol 1 puffs 04/24/22 09:00 04/27/22 08:36 Fluticasone/Vilanterol 200/25mcg 14 Puffs/Inhaler INH 05/24/22 08:59 1 puffs DAILY SHANKAR Administration Furosemide 40 mg 04/24/22 09:00 04/27/22 08:33 Furosemide 40 Mg Tab PO 05/24/22 08:59 40 mg DAILY SHANKAR Administration Guaifenesin 100 mg 04/23/22 19:32 04/25/22 07:52 Guaifenesin Sugar Free 100 Mg/5 Ml Udc PO 05/23/22 19:31 100 mg Q6H PRN Administration Cough Levothyroxine Sodium 100 mcg 04/24/22 06:30 04/27/22 05:54 Levothyroxine Sodium 100 Mcg Tablet PO 05/24/22 06:29 100 mcg DAILYBB SHANKAR Administration Lidocaine 2 patch 04/24/22 15:15 04/27/22 08:37 Lidocaine 5% 1 Patch TD 05/24/22 15:14 2 patch QAM SHANKAR Administration Miscellaneous 1 each 04/23/22 23:00 04/26/22 20:39 Remove Lidoderm Patch N/A 05/23/22 22:59 1 each DAILY@2100 SHANKAR Administration Multivitamins 1 tab 04/24/22 09:00 04/27/22 08:32 Multivitamin Tab PO 05/24/22 08:59 1 tab QAM SHANKAR Administration Pantoprazole Sodium 40 mg 04/23/22 21:00 04/27/22 08:35 Pantoprazole 40 Mg Tab PO 05/23/22 20:59 40 mg BID SHANKAR Administration Polyethylene Glycol 17 gm 04/23/22 21:00 04/27/22 08:35 Polyethylene (Miralax) 17 Gm Pack PO 05/23/22 20:59 17 gm BID SHANKAR Administration Senna/Docusate Sodium 1 tab 04/23/22 21:00 04/27/22 08:34 Docusate Sodium/Senna 50/8.6mg Tab PO 05/23/22 20:59 1 tab BID SHANKAR Administration Trazodone HCl 100 mg 04/23/22 21:00 04/26/22 20:37 Trazodone Hcl 100 Mg Tab PO 05/23/22 20:59 100 mg HS SHANKAR Administration Vitamin D 1,000 units 04/24/22 09:00 04/27/22 08:32 Cholecalciferol 1,000 Units 25 Mcg Tab PO 05/24/22 08:59 1,000 units DAILY SHANKAR Administration Warfarin Sodium 7.5 mg 04/24/22 16:00 04/25/22 19:01 Warfarin Sod 7.5 Mg Tab PO 05/24/22 15:59 7.5 mg DAILY@1600 SHANKAR Administration NPO Date Last Intake of Fluids: 04/27/22 Time Last Intake of Fluids: 23:59 Last Intake of Fluids Comment: advised Date Last Intake of Solids: 04/27/22 Time Last Intake of Solids: 23:59 Last Intake of Solids Comment: advised Past Medical History Medical History (Updated 04/27/22 @ 08:07 by Esha Chavez DO) Acute thrombosis of cephalic vein Anemia Chronic venous stasis dermatitis Complex sleep apnea syndrome Constipation Depression HILTON (dyspnea on exertion) GERD (gastroesophageal reflux disease) History of broken collarbone Hypertension Hypothyroidism Kyphoscoliosis snf current use of anticoagulants with INR goal of 2.0-3.0 Lower extremity venous stasis Lumbar stenosis Osteoporosis Paroxysmal atrial fibrillation Pneumonia Postlaminectomy syndrome of lumbosacral region Presence of intrathecal pump Sacroiliitis Testicular hernia history of Thoracic aortic aneurysm (TAA) dilation of the ascending thoracic aorta measures up to 4.5 cm at the level of the main pulmonary artery Venous thrombosis Exercise / Class Metabolic Activity III < 4 Walking/Shop/Light housework Past Family History Family History Mother Colitis Brother Colitis Hypertension Sister Hypertension Father Hypertension Prostate cancer Myocardial infarction Denies family history of Ovarian cancer Coronary heart disease Breast cancer Colorectal cancer Past Surgical History Surgical History Encounter for post-sterilization vasoplasty History of appendectomy Previous back surgery S/P hernia repair Past Anesthesia History No Hx of Anesthesia Complications and No Family Hx of Anesthesia Complications History of PONV No Hx of PONV and No Hx of Motion Sickness Social History Smoking Status: Never smoker Hx Alcohol Use: No Hx Substance Use: No substance use type: does not use Physical Exam Vital Signs Last Vital Signs Temp 36.8 C 04/27/22 14:58 Pulse 68 04/27/22 14:58 Resp 16 04/27/22 14:58 BP 134/67 04/27/22 14:58 Pulse Ox 96 04/27/22 14:58 O2 Del Method 04/27/22 14:58 Constitutional WD/WN, vitals as above cooperative; no acute distress ENMT Mouth: + edentulous Thyromental Distance: > or= 3.5 Finger Breadths Mallampati Class: III Neck trachea midline, no thyromegaly Respiratory normal respiratory effort, lungs clear to auscultation Cardiovascular RRR, no murmur, no edema Musculoskeletal Head/Neck/Chest: normocephalic and head atraumatic Spine: normal cervical ROM Neurologic normal touch/pain/proprioception, CN's II-XI intact bilaterally (Grossly intact) and moves all extremities Psychiatric A+Ox3, euthymic affect poor IV access Testing Laboratory Results 04/26/22 10:28 04/26/22 10:28 PT 10.9 Seconds (9.0-12.0) 04/27/22 06:03 INR 1.0 (0.9-1.1) 04/27/22 06:03 APTT 62.6 Seconds (21.0-31.0) H* 04/23/22 15:45 Urine Color Yellow 04/23/22 Unknown Urine Appearance Clear (Clear) 04/23/22 Unknown Urine pH 6.5 (4.5-7.5) 04/23/22 Unknown Ur Specific [place] 1.036 (1.000-1.030) H 04/23/22 Unknown Urine Protein Negative (Negative) 04/23/22 Unknown Urine Glucose (UA) Negative (Negative) 04/23/22 Unknown Urine Ketones Trace (Negative) H 04/23/22 Unknown Urine Nitrite Negative (Negative) 04/23/22 Unknown Ur Leukocyte Esterase Negative (Negative) 04/23/22 Unknown Urine WBC (Auto) 1-5 /hpf (0-5) 04/23/22 Unknown Urine RBC (Auto) >30 /hpf (0-4) H 04/23/22 Unknown U Hyaline Cast (Auto) 1-5 /lpf (0-5) 04/23/22 Unknown U Epithel Cells (Auto) 0-5 /lpf (0-5) 04/23/22 Unknown Urine Bacteria (Auto) Negative (Negative) 04/23/22 Unknown 04/25/22 18:38 Aerobic Blood Culture - Preliminary Blood No growth in Aerobic bottle after 24 hours. Anaerobic Blood Culture - Preliminary No growth in Anaerobic bottle after 24 hours. Electrocardiogram Date: 04/23/22 Vent. Rate : 080 BPM Atrial Rate : 080 BPM P-R Int : 142 ms QRS Dur : 134 ms QT Int : 422 ms P-R-T Axes : 090 015 -13 degrees QTc Int : 486 ms Poor data quality, interpretation may be adversely affected Normal sinus rhythm Right bundle branch block Possible Lateral infarct (cited on or before 07-APR-2022) T wave abnormality, consider inferior ischemia Abnormal ECG When compared with ECG of 15-APR-2022 04:58, Vent. rate has increased BY 27 BPM T wave inversion now evident in Inferior leads T wave inversion more evident in Anterior leads Echocardiogram Date: 04/02/22 EF: 55-60 LV Function: normal RWMA: + none Other Findings: + LVH (mild concentric) Valvular Disease: + MR (mild) mod LAD Other Testing 04/01/22 CT angio chest PE protocol CT DOSE: 804.01 mGy.cm HISTORY: 66 years-old Male with PE. Acute shortness of breath TECHNIQUE: Multiple CTA images of the chest were obtained after the intravenous administration of 117 ml Optiray. Coronal and sagittal MIPS were obtained from the axial data set and were submitted for review. All measurements were obtained according to NASCET criteria. A dose lowering technique was utilized adhering to the principles of ALARA. COMPARISON: Chest radiograph of same day FINDINGS: Limited exam secondary to positioning and respiratory motion artifact. CTA: Moderate cardiomegaly. Piriform dilation of the ascending thoracic aorta measures up to 4.5 cm at the level of the main pulmonary artery. No dissection. Dilated pulmonary arteries suggestive of pulmonary arterial hypertension. No pulmonary emboli identified. CT CHEST: No thyroid nodule. Nonspecific mediastinal and hilar lymphadenopathy include subcarinal lymph nodes measuring up to 1.7 cm. No pneumothorax. Trace right pleural effusion. Subsegmental left basilar atelectasis. No overt pulmonary edema. Dense airspace opacities throughout the right lung are most pronounced in the right lower lobe. Tracheobronchial secretions with mucous plugging. Bronchial wall thickening throughout the right lung. Calculated left kidney measure up to 7 mm. Nonspecific diffuse esophageal wall thickening. Unremarkable soft tissues. No acute fracture. Degenerative changes of the shoulders and spine. Partially imaged catheter is are noted within the central canal of the thoracic spine. No acute fracture identified. IMPRESSION: 1. Cardiomegaly without pulmonary emboli identified. 2. Dense airspace opacities throughout the right lung, most pronounced within the right lower lobe compatible with pneumonia. Follow-up imaging after treatment course is needed to document resolution. 3. Mediastinal and hilar lymphadenopathy, favored to be reactive. 4. Left nephrolithiasis.
[2022-04-27] MEDS: ESCITALOPRAM OXALATE 20 MG TAB PO SCH (08:31)
[2022-04-27] MEDS: MULTIVITAMIN TAB PO SCH (08:32)
[2022-04-27] MEDS: CHOLECALCIFEROL 1,000 UNITS 25 MCG TAB PO SCH (08:32)
[2022-04-27] MEDS: FUROSEMIDE 40 MG TAB PO SCH (08:33)
[2022-04-27] MEDS: CYANOCOBALAMIN (B-12) 500 MCG TABLET PO SCH (08:33)
[2022-04-27] MEDS: AMIODARONE 200 MG TAB PO SCH (08:33)
[2022-04-27] MEDS: DOCUSATE SODIUM/SENNA 50/8.6MG TAB PO SCH ×2 (08:34→21:11)
[2022-04-27] MEDS: BACLOFEN 10 MG TAB PO SCH ×3 (08:34→21:12)
[2022-04-27] MEDS: POLYETHYLENE (MIRALAX) 17 GM PACK PO SCH ×2 (08:35→21:09)
[2022-04-27] MEDS: PANTOprazole 40 MG TAB PO SCH ×2 (08:35→21:13)
[2022-04-27] MEDS: FLUTICASONE/VILANTEROL 200/25MCG 14 PUFFS/INHALER INH SCH (08:36)
[2022-04-27] MEDS: LIDOCAINE 5% 1 PATCH TD SCH (08:37)
--- NOTE | 2022-04-27 08:59 | Orthopedic Progress Note ---
Date of Service April 27, 2022 Assessment & Plan (1) Hematoma: Plan: Discussed exam findings and plan with Dr. Woodruff via cell phone today LUE is NVI and not concerning for compartment syndrome or appear life threatening Continue to manage pain per current protocol, he is pleasant during the interaction despite the 25/10 Pt was advised on monitoring LUE. He would benefit from compression, however he is unable to tolerate this and refuses to try. We discussed elevating the LUE, he is only wanting to elevate the distal UE due to pain over the elbow refused ice to place over the UE He did sign the consent form for I&D of the left arm. Will re-evaluate tomorrow and if not resolved and patient is still in significant pain and wants to proceed with surgery we will proceed with surgery. I did discuss with pt his expectations and risks again today. He was advised he will have post op pain and mostlikely be in a splint/dressing that will have to be in place to prevent reoccurrence post operatively for a period of time. He was receptive to this. We will continue to hold anticoagulation. Advised Sarah Peacock to stop NPO for today. He is NPO after midnight with IV fluids. IV site will need to be changed out of left hand to be out of the surgical field. Spoke with Sarah Peacock in regards to the IV and she was contacting IV team. Antibiotics on-call to OR. Present on Admission?: Yes Admission and Anticipated Discharge Date Admission Date: April 25, 2022 Subjective Pt is a 66 y.o male who is a right hand dominant male. He was seen bedside this am approx 7:45. He was alert and oriented x3 . He is sitting upright in bed watching television with the distal LUE elevated on a pillow. He does not appear to be in any distress. He states he continues to have left UE pain. He states the pain is 25/10 as he sits and talks without grimacing. He states the swelling has been the same since last night. He denies any discoloration of the LUE besides the bruising.He denies any paresthesia or difficulty with moving the wrist/fingers. He states he is not able to tolerate anything touching the elbow including his dressing he had on yesterday and ice. He denies any fever, chills, CP or SOB. Review of Systems Review of Systems: Please refer to H&P Physical Exam Physical Exam: General: pt is alert and oriented x3 sitting upright talking and answering questions appropriately. He is pleasant Musculoskeletal: Pt has edematous area over the LUE Proximal forearm into bicep area.Neg for any edema in the distal forearm or hand. LUE hand has IV present. Proximal area is nonfluctuant and tender to palpate. Pt is able to flex and extend the elbow although this is limited due to pain, able to extend and flex the wrist, digits, close fist. He is limited w/ supination and pronation. Sensation is intact in all digits and UE. Radial pulse is palpable, strong 2+ Integumentary: skin has resolving ecchymosis over the antecubital and surrounding area, otherwise the UE is normal in color and temperature. outline has no erythema outside of this area Results & Data ([facility]) Vital Signs (Past 12 Hours) Vital Signs Temp Pulse Resp BP Pulse Ox O2 Del Method 04/27/22 07:27 36.7 C 69 18 149/67 H 92 Room Air
[2022-04-27] MEDS: traZODone HCL 100 MG TAB PO SCH (21:11)
--- NOTE | 2022-04-27 21:52 | Hospitalist Progress Note ---
Date of Service April 27, 2022 Assessment & Plan (1) Hematoma: Plan: left arm at site of previous thrombophlebitis now on Lovenox and coumadin (bridging) causing pain but no associated signs or symptoms of infection of hematoma -elevate limb above heart -increase frequency of hydrocodone prn -warm compresses did not help -hgb stable-ok to continue Lovenox/coumadin -follow CBC On 04/27 Hematoma appears stable, forearm remains painful to touch. cat scan obtained, No signs of infection Ortho not concerned about compartment syndrome, CK is normal may need surgical decompression if conservative management does not help. Will hold off antibiotics as no fever or signs of infection. ordered vitamin k Organized IV line placement as his current access is in his left hand. Anesthesia will do this in the evening. (2) Chest pain: Plan: Thom is a 66-year-old male with a past medical history of hypertension, prediabetes, hypothyroidism, depression, insomnia, chronic back pain with intrathecal pump, BPH, with a recent prolonged admission for RSV with pneumonia, respiratory failure and colonic ileus,who presents with chest pain and generalized weakness after being home for 5 days. Shortness of breath/rib pain suspect deconditioning and costochondritis TTP over lower ribs no new PNA, no fevers/chills, no hypoxia Troponin normal, no EKG changes therapeutically Anticoagulated - Low suspicion for amio toxicity at this time Definitely costochondritis based on exam continue lidocaine patches and Voltaren gel -increase hydrocodone to 1 tab q4h prn mod-severe pain -w/ diminished BS at bases--> add on ICS (3) Generalized weakness: Plan: 2/2 prolonged (17 day) recent hospital stay. He was ambulating 80 feet during that stay with PT and felt well enough to go home at the time But obviously was not doing as well as he htought he was once he returned home PT/OT recommending rehab here referrals made to [facility] (4) Constipation: Plan: with severe colonic ileus prior hospitalization, now moving bowels regularly -continue Miralax and senna/docusate bid (5) Chronic venous insufficiency: Plan: noted (6) Depression: Plan: stable Continue Lexapro, trazodone nightly (7) Hypothyroidism: Plan: TSH recently normal, continue Synthroid 100 mcg daily (8) Paroxysmal atrial fibrillation: Plan: last admission had new diagnosis of WESLEY. AV kayla agents caused significant hypotension and was started on amiodarone Sinus on admission and examines in regular rhythm not on tele - Continue amiodarone 200mg daily Continue warfarin/Lovenox bridge (9) Thoracic aortic aneurysm (TAA): Plan: Thoracic aortic aneurysm Continued outpatient surveillance, no acute change (10) Intractable back pain: Plan: Chronic back pain With postlaminectomy syndrome of lumbosacral region, with spinal cord stimulator in place with Dilaudid pump Follows with pain management Continue pain pump Patient endorses some intermittent numbness/tingling in his saddle, none present at time of exam. No bowel/bladder incontinence, does get some right foot tingling intermittently in the heel. 5/5 strength to ankle dorsiflexion/plantarflexion, 4/5 strength limited by pain to hip flexion bilaterally - Given new/worsened saddle anesthesia (11) Anemia: Plan: Hemoglobin 12 down from 13, some blood loss may be from hematoma in arm No obvious bleeding anywhere else and just had EGD/colonoscopy last admission without bleeding Ferritin 83 on 04/16/2022, transferrin saturation 23% 04/16, normal serum iron and low TIBC suggestive of anemia of chronic disease B12 low normal at 323 last admission and folate normal With smudge cells but is leukopenic, no evidence of CLL on peripheral smear peripheral smear here interpreted as anemia of chronic disease (12) Venous thrombosis: Plan: Cephalic vein thrombosis Clots occurred while on Eliquis last admission suggesting failure; patient was switched to warfarin after Lovenox bridge on prior discharge due to concern for recurrent clots and suspected hypercoagulable state remains subtherapeutic at INR 1.4 -continue therapeutic Lovenox dosing bid and coumadin dose increased to 7.5mg po daily -follow INR in AM Lupus anticoagulant weak positive from previous admission--> recommend repeat testing in 12 weeks anti-phospholipid abs negative homocysteine level elevated at 14.4 and had low normal B12 previously -continue to replace B12 for hyperhomocysteinemia -recommend outpt f/u with Hematology -is already set up with anticoagulation clinic from prior admission but first appointment to be cancelled as is admitted to hospital (13) GERD (gastroesophageal reflux disease): Plan: found to have gastritis on EGD last admit Continue PPI twice daily (14) Complex sleep apnea syndrome: Plan Dispo-continued stay on med/surg PT/OT recommending rehab, referral placed to [facility] as per my d/w CM Admission and Anticipated Discharge Date Admission Date: April 25, 2022 Subjective Patient reports continuing to have arm pain in his left forearm. Review of Systems Review of Systems: All systems reviewed & are unremarkable except as noted in HPI & below Physical Exam Constitutional: WD/WN, vitals as above Eyes: + anicteric sclerae Neck: trachea midline, no thyromegaly Respiratory: normal respiratory effort, lungs clear to auscultation (except diminished BS at bases bilat) Cardiovascular: Rate/Rhythm: regular rate and regular rhythm Heart Sounds: no murmur Extremities: + edema (1+ woody edema legs bilat,left forearm 1+) Gastrointestinal (Abdomen): normal bowel sounds, soft, nontender, no hepatosplenomegaly Musculoskeletal: Extremities: + extremities abnormal to inspection (LUE as above), no cyanosis and no clubbing Skin: no rashes, warm and dry + rash (purplish discoloration legs,chronic venous stasis changes bilat) Neurologic: moves all extremities and awake; no focal motor deficits Psychiatric: A+Ox3, euthymic affect Results & Data Results & Data ([facility]) Vital Signs (Past 12 Hours) Vital Signs Temp Pulse Resp BP Pulse Ox O2 Del Method 04/27/22 14:58 36.8 C 68 16 134/67 96 Room Air PG Care Time/CCT Total # of Minutes Spent Total Time Spent with Patient: Total time spent is greater than 50% in coordination of care (as documented) at patient's floor/unit and/or counseling patient: Coding Level of Care Code 05467 Subseq Hosp Care Lvl 3 Diagnoses Hematoma T14.8XXA Chest pain R07.9 Chest pain type: unspecified Generalized weakness R53.1 Constipation K59.00 Chronic venous insufficiency I87.2 Depression F32.9 Hypothyroidism E03.9 Paroxysmal atrial fibrillation I48.0 Thoracic aortic aneurysm (TAA) I71.20 Intractable back pain M54.9 Anemia D64.9 Venous thrombosis I82.90 GERD (gastroesophageal reflux disease) K21.9 Complex sleep apnea syndrome G47.31 Time Spent (min) 35 (1) Chest pain Chest pain type: unspecified Qualified Code(s): R07.9 - Chest pain, unspecified
[2022-04-28] MEDS ORDERED: ceFAZolin 2000MG 2,000 MG/15 ML SYR IV SCH (06:00)
[2022-04-28] MEDS: LEVOTHYROXINE SODIUM 100 MCG TABLET PO SCH (06:07)
[2022-04-28] MEDS ORDERED: SUGAMMADEX SODIUM 200 MG/2 ML VIAL IV ONE (06:57)
[2022-04-28] MEDS ORDERED: fentaNYL citrate 100 MCG/2 ML VIAL ONE ×2 (06:58→08:34)
[2022-04-28] MEDS ORDERED: ONDANSETRON INJ 2 MG/ML 2 ML VIAL IV PRN ×2 (07:15→08:39)
[2022-04-28] MEDS ORDERED: MoRPHine SULFATE 10 MG/ML CARP/VIAL IV PRN ×2 (07:15→08:39)
[2022-04-28] MEDS ORDERED: fentaNYL citrate 100 MCG/2 ML VIAL IV PRN ×2 (07:15→08:39)
[2022-04-28] MEDS ORDERED: ATROPINE SULFATE 0.1 MG/ML 10ML SYR IV PRN ×2 (07:15→08:39)
[2022-04-28] MEDS ORDERED: MEPERIDINE HCL 25 MG/ML CARP/VIAL IV PRN ×2 (07:15→08:39)
[2022-04-28] MEDS ORDERED: ePHEDrine sulfate 50 MG/ML AMP IV PRN ×2 (07:15→08:39)
[2022-04-28] MEDS ORDERED: BUPIVACAINE/EPINEPHRINE 0.5% MPF 1:200,000 30 ML VIAL ONE (07:17)
[2022-04-28] MEDS ORDERED: LIDOCAINE 1% LOCAL 20 ML VIAL ONE (07:17)
--- NOTE | 2022-04-28 07:20 | Orthopedic Progress Note ---
Date of Service April 28, 2022 Assessment & Plan (1) Hematoma: Plan: LUE Painful large hematoma. Patient wished to proceed with I&D LUE. LUE intialled. Pt has been NPO since midnight. Abx field service consultant to OR. Informed consent signed. Plan OR today. Admission and Anticipated Discharge Date Admission Date: April 25, 2022 Subjective Ready for surgery Physical Exam Physical Exam: LLU: Sensation to Light touch intact distally. BCR < 2 sec. Motor median, radial, ulna, AIN, PIN intact. IV dorsum left hand. Diffuse swelling upper and forearm. Bruising medial elbow, firm, and exquisitely tender. Forearm and upper arm otherwise soft. No evidence of compartment syndrome. Results & Data ([facility]) Vital Signs (Past 12 Hours) Vital Signs Temp Pulse Pulse Resp BP Pulse Ox O2 Del Method 04/28/22 06:56 36.9 C 84 22 136/78 92 Room Air 04/27/22 22:15 36.6 C 66 16 124/69 93 Room Air Laboratory Results Laboratory Results WBC 2.93 K/ul (4.8-10.8) L 04/26/22 10:28 RBC 3.84 M/uL (4.63-6.08) L 04/26/22 10:28 Hgb 12.0 g/dl (14.0-18.0) L 04/26/22 10:28 Hct 35.1 % (40.1-51.0) L 04/26/22 10:28 MCV 91.4 fL (80.0-100.0) 04/26/22 10:28 MCH 31.3 pg (25.0-34.0) 04/26/22 10:28 MCHC 34.2 g/dL (32.0-36.0) 04/26/22 10:28 RDW Std Deviation 50.7 fL (36.4-46.3) H 04/26/22 10:28 RDW Coeff of Kj 15.2 % (11.5-14.5) H 04/26/22 10:28 Plt Count 136 K/uL (130-400) 04/26/22 10:28 MPV 10.1 fL (9.4-12.4) 04/26/22 10:28 Immature Gran % (Auto) 0.0 % 04/26/22 10:28 Neut % (Auto) 45.4 % 04/26/22 10:28 Lymph % (Auto) 33.1 % 04/26/22 10:28 [place] % (Auto) 19.8 % 04/26/22 10:28 Eos % (Auto) 1.4 % 04/26/22 10:28 Baso % (Auto) 0.3 % 04/26/22 10:28 Neut # (Auto) 1.33 K/uL (1.4-6.5) L 04/26/22 10:28 Lymph # (Auto) 0.97 K/uL (1.2-3.4) L 04/26/22 10:28 [place] # (Auto) 0.58 K/uL (0.24-0.82) 04/26/22 10:28 Eos # (Auto) 0.04 K/uL (0-0.50) 04/26/22 10:28 Baso # (Auto) 0.01 K/uL (0-0.2) 04/26/22 10:28 Immature Gran # (Auto) 0.00 K/uL (0.00-0.02) 04/26/22 10:28 Neutrophils % (Manual) 37 % 04/24/22 08:18 Lymphocytes % (Manual) 28 % 04/24/22 08:18 Monocytes % (Manual) 13 % 04/24/22 08:18 Neutrophils # (Manual) 0.98 K/uL (1.4-6.5) L 04/24/22 08:18 Lymphocytes # (Manual) 0.74 K/uL (1.2-3.4) L 04/24/22 08:18 Monocytes # (Manual) 0.34 K/uL (0.24-0.82) 04/24/22 08:18 Large Granular Lymphs 22 % 04/24/22 08:18 # Lrg Granular Lymphs 0.58 K/uL 04/24/22 08:18 Smudge Cells Present 04/24/22 08:18 Blood Smear Review 04/24/22 08:18 ESR 20 mm/hr (0-20) 04/25/22 18:38 PT Cancelled 04/28/22 06:26 INR Cancelled 04/28/22 06:26 APTT 62.6 Seconds (21.0-31.0) H* 04/23/22 15:45 PTT Ratio 2.3 04/23/22 15:45 Sodium 138 mmol/L (136-145) 04/26/22 10:28 Potassium 3.3 mmol/L (3.5-5.1) L 04/26/22 10:28 Chloride 105 mmol/L (98-107) 04/26/22 10:28 Carbon Dioxide 27 mmol/L (21-32) 04/26/22 10:28 Anion Gap 6 (3-11) 04/26/22 10:28 BUN 11 mg/dl (6-23) 04/26/22 10:28 Creatinine 0.61 mg/dl (0.6-1.4) 04/26/22 10:28 Est Cr Clr Drug Dosing 143.4 ml/min 04/26/22 10:28 Est GFR ( Amer) 121.5 ml/min 04/26/22 10:28 Est GFR (Non-Af Amer) 104.8 ml/min 04/26/22 10:28 BUN/Creatinine Ratio 18.0 (10-20) 04/26/22 10:28 Glucose 114 mg/dl (70-99(Fasting)) H 04/26/22 10:28 Calcium 8.3 mg/dl (8.5-10.1) L 04/26/22 10:28 Magnesium 1.8 mg/dl (1.7-2.4) 04/25/22 07:11 Total Bilirubin 0.6 mg/dl (0.2-1.0) 04/23/22 15:25 AST 51 U/L (13-39) H 04/23/22 15:25 ALT 38 U/L (7-52) 04/23/22 15:25 Alkaline Phosphatase 61 U/L (34-104) 04/23/22 15:25 Total Creatine Kinase 68 U/L (30-223) 04/25/22 18:38 Troponin I High Sens 7.2 pg/ml (0-20) 04/23/22 15:25 Troponin I High Sens Cancelled 04/23/22 15:25 C-Reactive Protein 3.39 mg/dl (0-0.5) H 04/26/22 10:28 Total Protein 6.7 gm/dl (6.0-8.3) 04/23/22 15:25 Albumin 3.9 gm/dl (3.4-5.0) 04/23/22 15:25 Globulin 2.8 gm/dl (2.5-4.0) 04/23/22 15:25 Albumin/Globulin Ratio 1.4 (0.9-2) 04/23/22 15:25 Procalcitonin < 0.05 ng/ml (0-0.5) 04/25/22 18:38 Urine Color Yellow 04/23/22 Unknown Urine Appearance Clear (Clear) 04/23/22 Unknown Urine pH 6.5 (4.5-7.5) 04/23/22 Unknown Ur Specific [place] 1.036 (1.000-1.030) H 04/23/22 Unknown Urine Protein Negative (Negative) 04/23/22 Unknown Urine Glucose (UA) Negative (Negative) 04/23/22 Unknown Urine Ketones Trace (Negative) H 04/23/22 Unknown Urine Blood 2+ (Negative) H 04/23/22 Unknown Urine Nitrite Negative (Negative) 04/23/22 Unknown Urine Bilirubin Negative (Negative) 04/23/22 Unknown Urine Urobilinogen Negative (Negative) 04/23/22 Unknown Ur Leukocyte Esterase Negative (Negative) 04/23/22 Unknown Urine WBC (Auto) 1-5 /hpf (0-5) 04/23/22 Unknown Urine RBC (Auto) >30 /hpf (0-4) H 04/23/22 Unknown U Hyaline Cast (Auto) 1-5 /lpf (0-5) 04/23/22 Unknown U Epithel Cells (Auto) 0-5 /lpf (0-5) 04/23/22 Unknown Urine Bacteria (Auto) Negative (Negative) 04/23/22 Unknown SARS-CoV-2 (PCR) NEGATIVE (Negative) 04/23/22 16:00 Influenza Type A (PCR) Negative (Neg) 04/23/22 16:00 Influenza Type B (PCR) Negative (Neg) 04/23/22 16:00 RSV (RT-PCR) Negative (Neg) 04/23/22 16:00 Impressions Chest X-Ray 04/23/22 15:07 XR chest 1V portable HISTORY: Shortness of breath. COMPARISON: Chest 04/15/2022. FINDINGS: No pneumothorax. There are low lung volumes. The heart remains mildly enlarged. There are bibasilar linear densities consistent with subsegmental atelectasis. This remains unchanged. No new focal lung consolidations to suggest a pneumonia. No evidence for pulmonary edema. Spinal stimulator leads again noted. IMPRESSION: No change in bibasilar linear densities. This favors atelectasis. A pneumonia could also have a similar appearance in the appropriate clinical setting. ACT 112: Negative or not required by law. Electronically signed by: Darian Wiseman M.D. 04/23/2022 3:34 PM Abdomen/Pelvis CT 04/23/22 16:[address] WITH IV CONTRAST CT DOSE: HISTORY: Left-sided abdominal pain. TECHNIQUE: Multiaxial CT images of the abdomen and pelvis were performed following the use of intravenous contrast. A dose lowering technique was utilized adhering to the principles of ALARA. COMPARISON STUDY: Abdomen and pelvis CT 04/11/2022. FINDINGS: The lung bases are better appreciated on the same day chest CT. No pneumoperitoneum. No pneumatosis. Scoliosis again noted. Postoperative changes within the lumbar spine. Benign-appearing sclerotic change within the left iliac bone again noted. Right lower quadrant subcutaneous pain pump device with an intrathecal catheter remains unchanged. There is also a left lower quadrant spinal stimulator pack again noted. The liver, gallbladder, pancreas, spleen, and adrenal glands unremarkable. The right kidney enhances normally. Stable 1.5 cm hypodense lesion within the left kidney. This favors a cyst. Stable left- sided nephrolithiasis. No ureteral stones. No hydronephrosis. The main portal vein is patent. Normal caliber abdominal aorta. No retroperitoneal lymphadenopathy. The metallic artifact results in suboptimal evaluation of the mid to lower abdomen. The bladder is unremarkable. No pelvic free fluid. No bowel wall thickening or obstruction. IMPRESSION: 1. Suboptimal evaluation of the abdomen and pelvis due to the metallic artifact. 2. No definite bowel wall thickening or obstruction. 3. Left-sided nephrolithiasis, unchanged. No ureteral stones. No hydronephrosis. 4. Additional findings as described above. ACT 112: Negative or not required by law. Electronically signed by: Darian Wiseman M.D. 04/23/2022 5:12 PM Chest CTA 04/23/22 16:01 CHEST CTA for PULMONARY ARTERIES CT DOSE: 2049.95 mGy.cm HISTORY: Shortness of breath. TECHNIQUE: Multiaxial CT images of the chest were performed following the intravenous administration of contrast to evaluate the pulmonary arteries. Maximal intensity projection images were also obtained. A dose lowering technique was utilized adhering to the principles of ALARA. COMPARISON STUDY: Chest CTA 04/01/2022. FINDINGS: Severe scoliosis. Intrathecal catheter and spinal stimulator leads are noted. The heart remains normal in size. Trace right pleural effusion which has improved. No pericardial effusion. Normal thyroid gland. A few prominent mediastinal lymph nodes remain stable. No hilar lymphadenopathy. Normal esophagus. No evidence for an aortic dissection. Nondiagnostic evaluation of the right lower lobe subsegmental pulmonary arteries due to the respiratory motion artifact. Otherwise, the remaining pulmonary arteries show no filling defects to suggest a pulmonary embolus. No acute fractures within the visualized osseous structures. No pneumothorax. The central airways are patent. Mild right bronchial wall thickening has improved. There are few bibasilar linear densities likely representing subsegmental atelectasis. No evidence for pulmonary edema. IMPRESSION: 1. No evidence for a pulmonary embolus with limitations as described above. 2. Low lung volumes with basilar linear densities likely representing subsegmental atelectasis. 3. Prominent mediastinal lymph nodes remain stable. 4. Interval improvement in the trace right pleural effusion. 5. Please refer to the same day abdomen and pelvis CT for further evaluation of the abdominal structures. ACT 112: Negative or not required by law. Electronically signed by: Darian Wiseman M.D. 04/23/2022 5:[address] 04/25/22 17:48 CT forearm LT wo con HISTORY: 66 years-old Male left arm swelling acute pain and swelling of the left upper extremity COMPARISON: Left elbow radiographs of same day, CTA chest with CT abdomen and pelvis 04/23/2022 TECHNIQUE: Multiple axial CT images of the left forearm were obtained without the use of IV contrast. A dose lowering technique was used consistent with the principals of ALARA. FINDINGS: Limited study secondary to positioning. 10.4 x 4.9 x 10.0 cm collection is noted within the subcutaneous medial tissues of the left upper extremity extending from the distal upper arm into the proximal forearm. This demonstrates layering hematocrit level. Moderate subcutaneous edema of the left elbow and forearm. No large joint effusion identified. Ill-defined linear lucency of the radial head. Left nephrolithiasis. Moderate colonic fecal retention. Partially imaged catheter within the central canal. Lumbar spinal fusion hardware. Sclerotic foci of the left iliac bone are likely postsurgical. No displaced acute fracture or dislocation of the forearm identified considering the limitations of the study. Osteoarthritis of the hand and wrist. IMPRESSION: 1. Limited exam secondary to positioning. There is an ill-defined linear lucency of the radial head which may be artifactual or represent a subtle acute nondisplaced fracture. Correlate with point tenderness. 2. 10 cm hematoma of the medial elbow and forearm predominantly appears to be located within the subcutaneous tissues. Moderate adjacent subcutaneous edema/hemorrhage. 3. Additional findings as above. ACT 112: Negative or not required by law. The above report was generated using voice recognition software. It may contain grammatical, syntax or spelling errors. Electronically signed by: Regulo Shabazz M.D. 04/26/2022 9:07 AM Elbow X-Ray 04/25/22 20:58 XR elbow LT min 3V routine HISTORY: 66 years-old Male pain acute pain and swelling of the left elbow COMPARISON: Left forearm CT of same day TECHNIQUE: 3 views of the left elbow FINDINGS: Considerable soft tissue swelling of the distal upper arm, elbow and proximal forearm is most pronounced medially. Soft tissue collection within the volar and medial tissues measures up to approximately 9.6 cm. No acute fracture or dislocation identified. IMPRESSION: 1. No acute fracture or dislocation identified. 2. Soft tissue swelling with volar medial collection of the elbow. Please refer to the forearm CT of same day for additional details. ACT 112: Negative or not required by law. The above report was generated using voice recognition software. It may contain grammatical, syntax or spelling errors. Electronically signed by: Regulo Shabazz M.D. 04/26/2022 9:07 AM
[2022-04-28] MEDS ORDERED: MIDAZOLAM HCL 1 MG/ML 2ML VIAL ONE (07:29)
[2022-04-28] MEDS ORDERED: ONDANSETRON INJ 2 MG/ML 2 ML VIAL ONE (07:56)
[2022-04-28] MEDS ORDERED: PHENYLEPHRINE HCL 10 MG/ML VIAL ONE (07:56)
[2022-04-28] MEDS ORDERED: PROPOFOL IV EMULSION 10 MG/ML 20 ML VIAL IV ONE (07:56)
[2022-04-28] MEDS ORDERED: DEXAMETHASONE SOD INJ 4 MG/ML VIAL ONE (07:56)
[2022-04-28] MEDS ORDERED: DEXAMETHASONE SOD INJ 4 MG/ML VIAL IV PRN (08:39)
--- NOTE | 2022-04-28 09:07 | Post Operative Brief Note ---
Immediate Post Op Note v1 Date of Surgery April 28, 2022 Pre & Post Diagnosis Operation Date: 04/28/22 07:30 Pre-Op Diagnosis: Hematoma Left Arm Post-Op Diagnosis: Hematoma Left Arm I identified the patient and participated in the time-out.: Yes Procedure Operation Date: 04/28/22 07:30 Actual Procedures p Incision and Drainage Left Arm, placement of Prevena (Incisional wound vac) (Left) - Juan Diego Woodruff MD Surgeon Juan Diego Woodruff MD Ball Assembler Braydon osorio PA-C (No fellow avail) Estimated Blood Loss 50 Findings Consistent with Post-Op Diagnosis Fluids 800 cc Drains Other (Prevena) Anesthesia Type General Complications none
--- NOTE | 2022-04-28 09:08 | Operative Report ---
Post Operative Report Pre & Post Diagnosis Operation Date: 04/28/22 07:30 Pre-Op Diagnosis: Hematoma Left Arm Post-Op Diagnosis: Hematoma Left Arm I identified the patient and participated in the time-out.: Yes Procedure Operation Date: 04/28/22 07:30 Actual Procedures p Incision and Drainage Left Arm, placement of Prevena (Incisional wound vac) (Left) - Juan Diego Woodruff MD Surgeon Juan Diego Woodruff MD Extractive Metallurgist Braydon osorio PA-C (No fellow avail) Estimated Blood Loss 50 Findings See Below Large hematoma left forearm/elbow with old blood, only to the level of the fascia. Muscle looked red and beefy with good contractility. Fluids 800 cc Specimens n/a Drains Prevena Anesthesia Type General Complications none Indications The patient is a 66 yo male on anti-coagulation who has a large left elbow/forearm painful hematoma. The patient understands the risks of surgery, which include but are not limited to: bleeding, infection, re-operation, damage to nerves and arteries, continued pain and DVT. The patient understands all of these instructions and explanations, all of their questions have been satisfactorily addressed. The patient has elected to proceed with surgery and the informed consent was signed for an I&D of the left arm. Description of Procedure After preforming a time-out identifying the correct patient and left upper extremity as the correct limb, anesthesia preformed general anesthesia and switched his hand IV to jugular access. The planned medial incision 12 cm in length centered over the hematoma and anterior to the medial epicondyle was injected with a 50:50 mixture of 1% lidocaine and 0.5 % Marcaine with epi for a total of 10cc. Using a scalpel the incision was made. Upon entering the fat layer a large amount of old blood vigorously evacuated from the arm. The medial antebrachial nerve was protected throughout. The hematoma was exposed with a combination of sharp dissection with the scalpel and tenotomies. The hematoma was removed with curette, finger dissection, and rongeur. The wound was copiously irrigated with 3L normal saline. The hematoma only went to the level of the fascia. Hemostasis was obtained. Following irrigation and debridement there was healthy viable red beefy tissue with good contractility. The skin were closed with 0 & 2-0 Prolene. The wound was covered with Prevena, sterile cast padding, and an FELIX. The sponge and needle counts were correct. POST-OP: Patient will be re-admitted to hospitalist service. Continue RICE. Will continue to follow while in house. I attest to the content of the Intraoperative Record and any orders documented therein. Any exceptions are noted below.
--- NOTE | 2022-04-28 09:25 | Operative Report ---
Post Operative Report Pre & Post Diagnosis Operation Date: 04/28/22 07:30 Pre-Op Diagnosis: Hematoma Left Arm Post-Op Diagnosis: Hematoma Left Arm I identified the patient and participated in the time-out.: Yes Procedure Operation Date: 04/28/22 07:30 Actual Procedures p Incision and Drainage Left Arm(Left) - Juan Diego Ina Woodruff MD Surgeon D Kacy GIBSON Refuse Laborer C SATNAM osorio (No fellow avail) Estimated Blood Loss 50 Findings Consistent with Post-Op Diagnosis see operative report Specimens none Drains none Complications none Disposition Accompanied Patient To Recovery: Yes Indications This 66 year old male presented through the ED with complaints of severe left arm pain after developing hematoma. He elected to proceed with surgical intervention after being educated about potential risks and outcomes. Preoperative imaging was obtained. Description of Procedure Patient was taken to the operating room where he was given general anesthesia. He was prepped and draped in the usual sterile fashion. Please see Dr. Woodruff's operative report for specifics of the procedure. I was present for the entire case from initial patient positioning through final wound closure. Assistance was provided in tissue retraction, hemostasis, and final wound closure. Patient was taken to the recovery room in satisfactory condition. I attest to the content of the Intraoperative Record and any orders documented therein. Any exceptions are noted below.
[2022-04-28] MEDS ORDERED: NALOXONE HCL 0.4 MG/1 ML VIAL/CARP IV PRN (10:16)
--- NOTE | 2022-04-28 11:17 | Anesthesiology Progress Note ---
Date of Service April 28, 2022 Anesthesia Post Procedure Vital Signs Vital Signs: Temp Pulse Pulse Resp BP BP Pulse Ox 04/28/22 11:01 36.4 C L 68 18 147/69 H 93 04/28/22 10:43 36.5 C 66 18 141/64 H 94 04/28/22 10:00 36.5 C 68 16 142/68 H 91 04/28/22 09:30 72 21 153/67 H 95 04/28/22 09:40 36.6 C 70 16 149/64 H 93 04/28/22 09:20 72 18 159/76 H 96 04/28/22 09:13 36.5 C 81 14 183/84 H 93 04/28/22 06:56 36.9 C 84 22 136/78 92 04/27/22 22:15 36.6 C 66 16 124/69 93 04/27/22 14:58 36.8 C 68 16 134/67 96 O2 Del Method O2 Flow Rate 04/28/22 11:01 Nasal Cannula 2 04/28/22 10:43 Nasal Cannula 2 04/28/22 10:00 Nasal Cannula 2 04/28/22 09:30 Nasal Cannula 2 04/28/22 09:40 Nasal Cannula 2 04/28/22 09:20 Nasal Cannula 2 04/28/22 09:13 Nasal Cannula 2 04/28/22 06:56 Room Air 04/27/22 22:15 Room Air 04/27/22 14:58 Room Air Pain Intensity Abdomen: Pain Intensity: 8 Left Arm: Pain Intensity: 10 Head: Pain Intensity: 10 Transfer of Care Handoff Completed per policy Notes Mental Status: alert / awake / arousable Patient Amnestic to Procedure: Yes Nausea / Vomiting: adequately controlled Pain: adequately controlled Airway Patency, RR, SpO2: stable & adequate BP & HR: stable & adequate Hydration State: stable & adequate Anesthetic Complications: no major complications apparent and Pt Satisfied with anesthetic care
[2022-04-28] MEDS ORDERED: ceFAZolin 2000MG 2,000 MG/15 ML SYR IV ONE (12:00)
[2022-04-28] MEDS: BACLOFEN 10 MG TAB PO SCH ×3 (13:10→21:11)
[2022-04-28] MEDS: PANTOprazole 40 MG TAB PO SCH ×2 (13:27→21:10)
[2022-04-28] MEDS: MULTIVITAMIN TAB PO SCH (13:28)
[2022-04-28] MEDS: FUROSEMIDE 40 MG TAB PO SCH (13:28)
[2022-04-28] MEDS: CHOLECALCIFEROL 1,000 UNITS 25 MCG TAB PO SCH (13:28)
[2022-04-28] MEDS: AMIODARONE 200 MG TAB PO SCH (13:29)
[2022-04-28] MEDS: DOCUSATE SODIUM/SENNA 50/8.6MG TAB PO SCH ×2 (13:29→21:09)
[2022-04-28] MEDS: CYANOCOBALAMIN (B-12) 500 MCG TABLET PO SCH (13:29)
[2022-04-28] MEDS: ESCITALOPRAM OXALATE 20 MG TAB PO SCH (13:30)
[2022-04-28] MEDS: FLUTICASONE/VILANTEROL 200/25MCG 14 PUFFS/INHALER INH SCH (13:31)
[2022-04-28] MEDS: POLYETHYLENE (MIRALAX) 17 GM PACK PO SCH ×2 (13:37→21:06)
[2022-04-28] MEDS: LIDOCAINE 5% 1 PATCH TD SCH (13:39)
[2022-04-28] MEDS: WARFARIN SOD 7.5 MG TAB PO SCH (16:27)
[2022-04-28] MEDS: traZODone HCL 100 MG TAB PO SCH (21:10)
--- NOTE | 2022-04-28 21:43 | Hospitalist Progress Note ---
Date of Service April 28, 2022 Assessment & Plan (1) Hematoma: Plan: left arm at site of previous thrombophlebitis now on Lovenox and coumadin (bridging) causing pain but no associated signs or symptoms of infection of hematoma -elevate limb above heart -increase frequency of hydrocodone prn -warm compresses did not help -hgb stable-ok to continue Lovenox/coumadin -follow CBC On 04/28 S/P. Incision and Drainage Left Arm Patient appears comfortable. will monitor. (2) Chest pain: Plan: Thom is a 66-year-old male with a past medical history of hypertension, prediabetes, hypothyroidism, depression, insomnia, chronic back pain with intrathecal pump, BPH, with a recent prolonged admission for RSV with pneumonia, respiratory failure and colonic ileus,who presents with chest pain and gen eralized weakness after being home for 5 days. Shortness of breath/rib pain suspect deconditioning and costochondritis TTP over lower ribs no new PNA, no fevers/chills, no hypoxia Troponin normal, no EKG changes therapeutically Anticoagulated - Low suspicion for amio toxicity at this time Definitely costochondritis based on exam continue lidocaine patches and Voltaren gel -increase hydrocodone to 1 tab q4h prn mod-severe pain -w/ diminished BS at bases--> add on ICS (3) Generalized weakness: Plan: 2/2 prolonged (17 day) recent hospital stay. He was ambulating 80 feet during that stay with PT and felt well enough to go home at the time But obviously was not doing as well as he htought he was once he returned home PT/OT recommending rehab here referrals made to [facility] (4) Constipation: Plan: with severe colonic ileus prior hospitalization, now moving bowels regularly -continue Miralax and senna/docusate bid (5) Chronic venous insufficiency: Plan: noted (6) Depression: Plan: stable Continue Lexapro, trazodone nightly (7) Hypothyroidism: Plan: TSH recently normal, continue Synthroid 100 mcg daily (8) Paroxysmal atrial fibrillation: Plan: last admission had new diagnosis of WESLEY. AV kayla agents caused significant hypotension and was started on amiodarone Sinus on admission and examines in regular rhythm not on tele - Continue amiodarone 200mg daily Continue warfarin/Lovenox bridge (9) Thoracic aortic aneurysm (TAA): Plan: Thoracic aortic aneurysm Continued outpatient surveillance, no acute change (10) Intractable back pain: Plan: Chronic back pain With postlaminectomy syndrome of lumbosacral region, with spinal cord stimulator in place with Dilaudid pump Follows with pain management Continue pain pump Patient endorses some intermittent numbness/tingling in his saddle, none present at time of exam. No bowel/bladder incontinence, does get some right foot tingling intermittently in the heel. 5/5 strength to ankle dorsiflexion/plantarflexion, 4/5 strength limited by pain to hip flexion b ilaterally - Given new/worsened saddle anesthesia (11) Anemia: Plan: Hemoglobin 12 down from 13, some blood loss may be from hematoma in arm No obvious bleeding anywhere else and just had EGD/colonoscopy last admission without bleeding Ferritin 83 on 04/16/2022, transferrin saturation 23% 04/16, normal serum iron and low TIBC suggestive of anemia of chronic disease B12 low normal at 323 last admission and folate normal With smudge cells but is leukopenic, no evidence of CLL on peripheral smear peripheral smear here interpreted as anemia of chronic disease (12) Venous thrombosis: Plan: Cephalic vein thrombosis Clots occurred while on Eliquis last admission suggesting failure; patient was switched to warfarin after Lovenox bridge on prior discharge due to concern for recurrent clots and suspected hypercoagulable state remains subtherapeutic at INR 1.4 -continue therapeutic Lovenox dosing bid and coumadin dose increased to 7.5mg po daily -follow INR in AM Lupus anticoagulant weak positive from previous admission--> recommend repeat testing in 12 weeks anti-phospholipid abs negative homocysteine level elevated at 14.4 and had low normal B12 previously -continue to replace B12 for hyperhomocysteinemia -recommend outpt f/u with Hematology -is already set up with anticoagulation clinic from prior admission but first appointment to be cancelled as is admitted to hospital (13) GERD (gastroesophageal reflux disease): Plan: found to have gastritis on EGD last admit Continue PPI twice daily (14) Complex sleep apnea syndrome: Plan Dispo-continued stay on med/surg PT/OT recommending rehab, referral placed to [facility] as per my d/w CM Admission and Anticipated Discharge Date Admission Date: April 25, 2022 Subjective 66 yo male reports feeling tired after surgery. He has no new complaints. He states he has no pain in his arm currently. Review of Systems Review of Systems: All systems reviewed & are unremarkable except as noted in HPI & below Physical Exam Constitutional: WD/WN, vitals as above Eyes: + anicteric sclerae Neck: trachea midline, no thyromegaly Respiratory: normal respiratory effort, lungs clear to auscultation (except diminished BS at bases bilat) Cardiovascular: Rate/Rhythm: regular rate and regular rhythm Heart Sounds: no murmur Gastrointestinal (Abdomen): normal bowel sounds, soft, nontender, no hepatosplenomegaly Musculoskeletal: Extremities: + extremities abnormal to inspection (LUE as above, left arm is wrapped), no cyanosis and no clubbing Skin: no rashes, warm and dry + rash (purplish discoloration legs,chronic venous stasis changes bilat) Neurologic: moves all extremities and awake; no focal motor deficits Psychiatric: A+Ox3, euthymic affect Results & Data Results & Data ([facility]) Vital Signs (Past 12 Hours) Vital Signs Temp Pulse Resp BP Pulse Ox O2 Del Method O2 Flow Rate 04/28/22 19:17 36.4 C L 72 18 130/70 95 Room Air 04/28/22 19:35 Room Air 04/28/22 16:43 Nasal Cannula 2 04/28/22 14:40 36.5 C 70 18 148/67 H 94 Room Air 04/28/22 10:00 Nasal Cannula 2 04/28/22 12:00 37.0 C 66 18 137/66 91 Nasal Cannula 2 04/28/22 11:01 36.4 C L 68 18 147/69 H 93 Nasal Cannula 2 04/28/22 10:43 36.5 C 66 18 141/64 H 94 Nasal Cannula 2 04/28/22 10:00 36.5 C 68 16 142/68 H 91 Nasal Cannula 2 PG Care Time/CCT Total # of Minutes Spent Total Time Spent with Patient: Total time spent is greater than 50% in coordination of care (as documented) at patient's floor/unit and/or counseling patient: Coding Level of Care Code 01502 Subseq Hosp Care Lvl 2 Diagnoses Hematoma T14.8XXA Chest pain R07.9 Chest pain type: unspecified Generalized weakness R53.1 Constipation K59.00 Chronic venous insufficiency I87.2 Depression F32.9 Hypothyroidism E03.9 Paroxysmal atrial fibrillation I48.0 Thoracic aortic aneurysm (TAA) I71.20 Intractable back pain M54.9 Anemia D64.9 Venous thrombosis I82.90 GERD (gastroesophageal reflux disease) K21.9 Complex sleep apnea syndrome G47.31 Time Spent (min) 25 (1) Chest pain Chest pain type: unspecified Qualified Code(s): R07.9 - Chest pain, unspecified
[2022-04-29] MEDS: LEVOTHYROXINE SODIUM 100 MCG TABLET PO SCH (05:32)
[2022-04-29 06:28] LABS: INR 1.1 (0.9-1.1); Prothrombin Time 11.4 Seconds (9.0-12.0)
[2022-04-29 06:35] LABS: Creatinine Clr Calc Pharmacy 171.6 ml/min; Est GFR (African American) 130.7 ml/min; Est GFR (Non-African American) 112.8 ml/min
[2022-04-29 07:37] LABS: Hematocrit (blood only) 28.4 % (40.1-51.0); Hemoglobin 9.9 g/dl (14.0-18.0); Mean Platelet Volume 10.6 fL (9.4-12.4); Platelet Count 118 K/uL (130-400); White Blood Count 3.87 K/ul (4.8-10.8)
[2022-04-29 07:42] LABS: Mean Corpuscular Hemoglobin 30.8 pg (25.0-34.0); Mean Corpuscular Hgb Conc 34.9 g/dL (32.0-36.0); Mean Corpuscular Volume 88.5 fL (80.0-100.0); RDW Coefficient of Variation 14.2 % (11.5-14.5); RDW Standard Deviation 46.1 fL (36.4-46.3); Red Blood Count 3.21 M/uL (4.63-6.08)
[2022-04-29] MEDS: FLUTICASONE/VILANTEROL 200/25MCG 14 PUFFS/INHALER INH SCH (08:07)
[2022-04-29] MEDS: LIDOCAINE 5% 1 PATCH TD SCH (08:08)
[2022-04-29] MEDS: POLYETHYLENE (MIRALAX) 17 GM PACK PO SCH ×2 (08:09→21:07)
[2022-04-29] MEDS: FUROSEMIDE 40 MG TAB PO SCH (09:11)
[2022-04-29] MEDS: CHOLECALCIFEROL 1,000 UNITS 25 MCG TAB PO SCH (09:11)
[2022-04-29] MEDS: BACLOFEN 10 MG TAB PO SCH ×3 (09:11→21:06)
[2022-04-29] MEDS: ESCITALOPRAM OXALATE 20 MG TAB PO SCH (09:11)
[2022-04-29] MEDS: CYANOCOBALAMIN (B-12) 500 MCG TABLET PO SCH (09:11)
[2022-04-29] MEDS: PANTOprazole 40 MG TAB PO SCH ×2 (09:11→21:06)
[2022-04-29] MEDS: AMIODARONE 200 MG TAB PO SCH (09:11)
[2022-04-29] MEDS: DOCUSATE SODIUM/SENNA 50/8.6MG TAB PO SCH ×2 (09:11→21:07)
[2022-04-29] MEDS: MULTIVITAMIN TAB PO SCH (09:12)
[2022-04-29] MEDS: ENOXAPARIN INJ 30 MG/0.3 ML SYR SQ SCH ×2 (09:12→21:05)
--- NOTE | 2022-04-29 09:32 | Orthopedic Progress Note ---
Date of Service April 29, 2022 Assessment & Plan (1) Hematoma: Plan: POD #1 s/p I&D LUE, doing as well as expected. Resume diet. WBAT. Continue pain control. DVT prophylaxis: TEDs, SCDs while in hospital, Coumadin per Hospitalist service bridging with Lovenox 30 mg BID. Continue Prevena. PT/OT. D/C planning. Continue care per primary service. Present on Admission?: Yes Admission and Anticipated Discharge Date Admission Date: April 25, 2022 Subjective Feeling much better Physical Exam Physical Exam: LLU: Sensation to Light touch intact distally. BCR < 2 sec. Motor median, radial, ulna, AIN, PIN intact. IV dorsum left hand. Dressing clean, dry, intact. Prevena functioning without drainage. Results & Data ([facility]) Vital Signs (Past 12 Hours) Vital Signs Temp Pulse Resp BP Pulse Ox O2 Del Method 04/29/22 07:50 36.9 C 61 16 163/69 H 93 Room Air 04/29/22 04:13 36.6 C 61 18 117/57 L 93 Room Air 04/28/22 23:20 36.6 C 67 18 118/60 95 Room Air Laboratory Results 04/29/22 04/29/22 04/29/22 Range/Units 07:10 05:51 05:51 WBC 3.87 L RBC 3.21 L Hgb 9.9 L Hct 28.4 L MCV 88.5 MCH 30.8 MCHC 34.9 RDW Std Deviation 46.1 RDW Coeff of Kj 14.2 Plt Count 118 L MPV 10.6 Absolute Nucleated RBC Nucleated RBC % (auto) Platelet Estimate PT 11.4 (9.0-12.0) Seconds INR 1.1 (0.9-1.1) Creatinine 0.51 L (0.6-1.4) mg/dl Est Cr Clr Drug Dosing 171.6 ml/min Est GFR ( Amer) 130.7 ml/min Est GFR (Non-Af Amer) 112.8 ml/min 04/29/22 Range/Units 05:51 WBC Cancelled RBC Cancelled Hgb Cancelled Hct Cancelled MCV Cancelled MCH Cancelled MCHC Cancelled RDW Std Deviation Cancelled RDW Coeff of Kj Cancelled Plt Count Cancelled MPV Cancelled Absolute Nucleated RBC Cancelled Nucleated RBC % (auto) Cancelled Platelet Estimate Cancelled PT (9.0-12.0) Seconds INR (0.9-1.1) Creatinine (0.6-1.4) mg/dl Est Cr Clr Drug Dosing ml/min Est GFR ( Amer) ml/min Est GFR (Non-Af Amer) ml/min
[2022-04-29] MEDS: ALBUTEROL HFA 8 GM INHALER INH PRN (10:44)
--- NOTE | 2022-04-29 12:40 | Hospitalist Progress Note ---
Date of Service April 29, 2022 Assessment & Plan (1) Hematoma: Plan: left arm at site of previous thrombophlebitis now on Lovenox and coumadin (bridging) causing pain but no associated signs or symptoms of infection of hematoma -elevate limb above heart -increase frequency of hydrocodone prn -warm compresses did not help -hgb stable-ok to continue Lovenox/coumadin -follow CBC On 04/29 S/P. Incision and Drainage Left Arm Patient appears comfortable. will monitor. resumed coumadin, chrecking INR q2days. bridging with lovenox monitoring hemoglobin which dropped due to above problem. Held lasix due to orthostasis (2) Orthostatic dizziness: Plan: 04/29 unable to get viable orthostatic vitals as unable to use arms due to thrombosis on right ar, and s/p incision and drainage on left arm.. Patient gets dizzy when standing up. Likely worsened by his blood loss anemia. will hold lasix and monitor his symptoms. (3) Chest pain: Plan: Thom is a 66-year-old male with a past medical history of hypertension, prediabetes, hypothyroidism, depression, insomnia, chronic back pain with intrathecal pump, BPH, with a recent prolonged admission for RSV with pneumonia, respiratory failure and colonic ileus,who presents with chest pain and generalized weakness after being home for 5 days. Shortness of breath/rib pain suspect deconditioning and costochondritis TTP over lower ribs no new PNA, no fevers/chills, no hypoxia Troponin normal, no EKG changes therapeutically Anticoagulated - Low suspicion for amio toxicity at this time Definitely costochondritis based on exam continue lidocaine patches and Voltaren gel -increase hydrocodone to 1 tab q4h prn mod-severe pain -w/ diminished BS at bases--> add on ICS (4) Generalized weakness: Plan: 2/2 prolonged (17 day) recent hospital stay. He was ambulating 80 feet during that stay with PT and felt well enough to go home at the time But obviously was not doing as well as he htought he was once he returned home PT/OT recommending rehab here referrals made to [facility] (5) Constipation: Plan: with severe colonic ileus prior hospitalization, now moving bowels regularly -continue Miralax and senna/docusate bid (6) Chronic venous insufficiency: Plan: noted (7) Depression: Plan: stable Continue Lexapro, trazodone nightly (8) Hypothyroidism: Plan: TSH recently normal, continue Synthroid 100 mcg daily (9) Paroxysmal atrial fibrillation: Plan: last admission had new diagnosis of WESLEY. AV kayla agents caused significant hypotension and was started on amiodarone Sinus on admission and examines in regular rhythm not on tele - Continue amiodarone 200mg daily Continue warfarin/Lovenox bridge (10) Thoracic aortic aneurysm (TAA): Plan: Thoracic aortic aneurysm Continued outpatient surveillance, no acute change (11) Intractable back pain: Plan: Chronic back pain With postlaminectomy syndrome of lumbosacral region, with spinal cord stimulator in place with Dilaudid pump Follows with pain management Continue pain pump Patient endorses some intermittent numbness/tingling in his saddle, none present at time of exam. No bowel/bladder incontinence, does get some right foot tingling intermittently in the heel. 5/5 strength to ankle dorsiflexion/plantarflexion, 4/5 strength limited by pain to hip flexion bilaterally - Given new/worsened saddle anesthesia (12) Anemia: Plan: Hemoglobin 9.9 down from 13, blood loss may be from hematoma in arm should stabilize now hematoma was treated. No obvious bleeding anywhere else and just had EGD/colonoscopy last admission without bleeding Ferritin 83 on 04/16/2022, transferrin saturation 23% 04/16, normal serum iron and low TIBC suggestive of anemia of chronic disease B12 low normal at 323 last admission and folate normal With smudge cells but is leukopenic, no evidence of CLL on peripheral smear peripheral smear here interpreted as anemia of chronic disease (13) Venous thrombosis: Plan: Cephalic vein thrombosis Clots occurred while on Eliquis last admission suggesting failure; patient was switched to warfarin after Lovenox bridge on prior discharge due to concern for recurrent clots and suspected hypercoagulable state remains subtherapeutic at INR 1.4 -continue therapeutic Lovenox dosing bid and coumadin dose increased to 7.5mg po daily -follow INR in AM Lupus anticoagulant weak positive from previous admission--> recommend repeat testing in 12 weeks anti-phospholipid abs negative homocysteine level elevated at 14.4 and had low normal B12 previously -continue to replace B12 for hyperhomocysteinemia -recommend outpt f/u with Hematology -is already set up with anticoagulation clinic from prior admission but first appointment to be cancelled as is admitted to hospital (14) GERD (gastroesophageal reflux disease): Plan: found to have gastritis on EGD last admit Continue PPI twice daily (15) Complex sleep apnea syndrome: Plan Dispo-continued stay on med/surg PT/OT recommending rehab, referral placed to [facility] as per my d/w CM Admission and Anticipated Discharge Date Admission Date: April 25, 2022 Subjective Patient is very dizzy. Seeing stars when he stood up. Patient reports no new pain. Review of Systems Review of Systems: All systems reviewed & are unremarkable except as noted in HPI & below Physical Exam Constitutional: WD/WN, vitals as above Eyes: + anicteric sclerae Neck: trachea midline, no thyromegaly Respiratory: normal respiratory effort, lungs clear to auscultation (except diminished BS at bases bilat) Cardiovascular: Rate/Rhythm: regular rate and regular rhythm Heart Sounds: no murmur Extremities: + edema (1+ woody edema legs bilat,left forearm 1+) Gastrointestinal (Abdomen): normal bowel sounds, soft, nontender, no hepatosplenomegaly Musculoskeletal: Extremities: + extremities abnormal to inspection (LUE as above, left arm is wrapped), no cyanosis and no clubbing Skin: no rashes, warm and dry + rash (purplish discoloration legs,chronic venous stasis changes bilat) Neurologic: moves all extremities and awake; no focal motor deficits Psychiatric: A+Ox3, euthymic affect Results & Data Results & Data ([facility]) Vital Signs (Past 12 Hours) Vital Signs Temp Pulse Resp BP Pulse Ox O2 Del Method 04/29/22 10:44 81 18 94 Room Air 04/29/22 10:31 92 Room Air 04/29/22 10:18 87 151/92 H 92 Room Air 04/29/22 08:00 Room Air 04/29/22 07:50 36.9 C 61 16 163/69 H 93 Room Air 04/29/22 04:13 36.6 C 61 18 117/57 L 93 Room Air PG Care Time/CCT Total # of Minutes Spent Total Time Spent with Patient: Total time spent is greater than 50% in coordination of care (as documented) at patient's floor/unit and/or counseling patient: Coding Level of Care Code 05491 Subseq Hosp Care Lvl 3 Diagnoses Hematoma T14.8XXA Orthostatic dizziness R42 Chest pain R07.9 Chest pain type: unspecified Generalized weakness R53.1 Constipation K59.00 Chronic venous insufficiency I87.2 Depression F32.9 Hypothyroidism E03.9 Paroxysmal atrial fibrillation I48.0 Thoracic aortic aneurysm (TAA) I71.20 Intractable back pain M54.9 Anemia D64.9 Venous thrombosis I82.90 GERD (gastroesophageal reflux disease) K21.9 Complex sleep apnea syndrome G47.31 (1) Chest pain Chest pain type: unspecified Qualified Code(s): R07.9 - Chest pain, unspecified
[2022-04-29] MEDS ORDERED: POTASSIUM CHLORIDE CRTAB 20 MEQ TABCR PO STA (12:41)
[2022-04-29] MEDS: HYDROCODONE/ACETAMOPHEN 5/325MG TAB PO PRN (15:41)
[2022-04-29] MEDS: WARFARIN SOD 7.5 MG TAB PO SCH (15:41)
[2022-04-29] MEDS: traZODone HCL 100 MG TAB PO SCH (21:06)
[2022-04-30] MEDS: LEVOTHYROXINE SODIUM 100 MCG TABLET PO SCH (06:07)
[2022-04-30 06:24] LABS: INR 1.2 (0.9-1.1); Prothrombin Time 12.6 Seconds (9.0-12.0)
[2022-04-30 06:39] LABS: Albumin Globulin Ratio 1.2 (0.9-2); Albumin Level 2.9 gm/dl (3.4-5.0); BUN Creatinine Ratio 22.4 (10-20); Bilirubin,Total 0.5 mg/dl (0.2-1.0); C Reactive Protein 5.49 mg/dl (0-0.5); Calcium 8.5 mg/dl (8.5-10.1); Creatinine Clr Calc Pharmacy 178.6 ml/min; Est GFR (African American) 132.9 ml/min; Est GFR (Non-African American) 114.7 ml/min; Globulin 2.5 gm/dl (2.5-4.0); Magnesium 1.8 mg/dl (1.7-2.4); Phosphorus 2.7 mg/dl (2.5-4.9); Potassium 4.2 mmol/L (3.5-5.1); Total Protein 5.4 gm/dl (6.0-8.3)
[2022-04-30 06:50] LABS: Hematocrit (blood only) 31.3 % (40.1-51.0); Hemoglobin 10.4 g/dl (14.0-18.0); Mean Corpuscular Hemoglobin 31.1 pg (25.0-34.0); Mean Corpuscular Hgb Conc 33.2 g/dL (32.0-36.0); Mean Corpuscular Volume 93.7 fL (80.0-100.0); Mean Platelet Volume 9.9 fL (9.4-12.4); Platelet Count 137 K/uL (130-400); RDW Coefficient of Variation 14.6 % (11.5-14.5); RDW Standard Deviation 50.6 fL (36.4-46.3); Red Blood Count 3.34 M/uL (4.63-6.08); White Blood Count 3.37 K/ul (4.8-10.8)
[2022-04-30] MEDS: LIDOCAINE 5% 1 PATCH TD SCH (07:47)
[2022-04-30] MEDS: FLUTICASONE/VILANTEROL 200/25MCG 14 PUFFS/INHALER INH SCH (07:47)
[2022-04-30] MEDS: POLYETHYLENE (MIRALAX) 17 GM PACK PO SCH ×2 (07:47→20:55)
[2022-04-30] MEDS: AMIODARONE 200 MG TAB PO SCH (07:48)
[2022-04-30] MEDS: ENOXAPARIN INJ 30 MG/0.3 ML SYR SQ SCH ×2 (08:10→20:59)
[2022-04-30] MEDS: ALBUTEROL HFA 8 GM INHALER INH PRN (08:39)
[2022-04-30] MEDS: DOCUSATE SODIUM/SENNA 50/8.6MG TAB PO SCH ×2 (08:58→21:01)
[2022-04-30] MEDS: MULTIVITAMIN TAB PO SCH (08:58)
[2022-04-30] MEDS: CYANOCOBALAMIN (B-12) 500 MCG TABLET PO SCH (08:58)
[2022-04-30] MEDS: PANTOprazole 40 MG TAB PO SCH ×2 (08:58→21:00)
[2022-04-30] MEDS: ESCITALOPRAM OXALATE 20 MG TAB PO SCH (08:58)
[2022-04-30] MEDS: BACLOFEN 10 MG TAB PO SCH ×3 (08:58→21:00)
[2022-04-30] MEDS: CHOLECALCIFEROL 1,000 UNITS 25 MCG TAB PO SCH (08:58)
[2022-04-30] MEDS: HYDROCODONE/ACETAMOPHEN 5/325MG TAB PO PRN (10:26)
--- NOTE | 2022-04-30 10:44 | Orthopedic Progress Note ---
Date of Service April 30, 2022 Assessment & Plan (1) History of elbow surgery: Plan: Patient was educated regarding today's patient was educated regarding today's findings. His dressings were changed. Prevena wound VAC will be left in place until Sunday. He will have it removed here in the hospital if he is still admitted, or follow-up in the office for removal. Continue with ice and elevation. Continue with gentle motion. Dizziness complaint will be addressed by the hospitalist team. Continue with his blood thinners. Continue therapy to improve motion. Sutures out in 12 days. Admission and Anticipated Discharge Date Admission Date: April 25, 2022 Subjective Patient is seen in his room this morning. He is complaining of dizziness which is been present since right after surgery. He is not sure why. He denies any significant discomfort at the left elbow. Pain is improved since before surgery. No other complaints at this point. He denies any numbness or tingling in the left arm. Physical Exam Physical Exam: Left arm has an intact surgical dressing. Upon removal, his arm is significantly decompressed since prior to surgery. Ecchymosis and mild edema remain. Prevena wound VAC is in place. It is functioning well. There is no drainage within the tube or in the chamber. He has mild discomfort with palpation around the elbow medially. No severe pain. Skin is soft and supple. Musculoskeletal: Patient has intact flexion and extension of the elbow. He has full range of motion of his wrist. Full range of motion of his digits. He is able to extend the thumb, index finger, cross the fingers, and pinch. Neurologic: Gross sensation is intact across each of the digits of the left hand as well as across the forearm by soft touch. Peripheral pulses are 2+. Results & Data ([facility]) Vital Signs (Past 12 Hours) Vital Signs Temp Pulse Resp BP BP Pulse Ox O2 Del Method 04/30/22 08:00 Room Air 04/30/22 08:40 61 18 97 04/30/22 07:28 36.6 C 60 16 181/80 H 168/82 H 94 Room Air O2 Flow Rate 04/30/22 08:00 04/30/22 08:40 2 04/30/22 07:28 Laboratory Results H&H obtained today was 10.4 and 31.3. WBCs are stable at 3.37. CRP is unremarkable. C-reactive protein is elevated at 5.49. This is likely due to his surgical intervention.
--- NOTE | 2022-04-30 13:33 | Hospitalist Progress Note ---
Date of Service April 30, 2022 Assessment & Plan (1) Hematoma: Plan: left arm at site of previous thrombophlebitis now on Lovenox and coumadin (bridging) causing pain but no associated signs or symptoms of infection of hematoma -elevate limb above heart -increase frequency of hydrocodone prn -warm compresses did not help -hgb stable-ok to continue Lovenox/coumadin S/p incision and drainage left arm on April [address] Woodruff (2) Orthostatic dizziness: Plan: Sitting blood pressure 154/92, standing blood pressure 135/95 Patient gets dizzy when standing up. Agree with holding Lasix, first held dose this morning. (3) Chest pain: Plan: Resolved (4) Generalized weakness: Plan: 2/2 prolonged (17 day) recent hospital stay. He was ambulating 80 feet during that stay with PT and felt well enough to go home at the time But obviously was not doing as well as he thought he was once he returned home PT/OT recommending rehab here referrals made to [facility] (5) Constipation: Plan: with severe colonic ileus prior hospitalization, now moving bowels regularly -continue Miralax and senna/docusate bid (6) Chronic venous insufficiency: Plan: noted (7) Depression: Plan: stable Continue Lexapro, trazodone nightly (8) Hypothyroidism: Plan: TSH recently normal, continue Synthroid 100 mcg daily (9) Paroxysmal atrial fibrillation: Plan: last admission had new diagnosis of WESLEY. AV kayla agents caused significant hypotension and was started on amiodarone Sinus on admission and remains in regular rhythm on exam - Continue amiodarone 200mg daily Continue warfarin/Lovenox bridge (10) Thoracic aortic aneurysm (TAA): Plan: Thoracic aortic aneurysm Continued outpatient surveillance, no acute change (11) Intractable back pain: Plan: Chronic back pain With postlaminectomy syndrome of lumbosacral region, with spinal cord stimulator in place with Dilaudid pump Follows with pain management Continue pain pump Continue his usual hydrocodone and baclofen (12) Anemia: Plan: Hemoglobin 10.4 down from 13, blood loss suspect from hematoma should stabilize now hematoma was treated. No obvious bleeding anywhere else and just had EGD/colonoscopy last admission without bleeding Ferritin 83 on 04/16/2022, transferrin saturation 23% 04/16, normal serum iron and low TIBC suggestive of anemia of chronic disease B12 low normal at 323 last admission and folate normal With smudge cells but is leukopenic, no evidence of CLL on peripheral smear peripheral smear here interpreted as anemia of chronic disease (13) Venous thrombosis: Plan: Cephalic vein thrombosis Clots occurred while on Eliquis last admission suggesting failure; patient was switched to warfarin after Lovenox bridge on prior discharge due to concern for recurrent clots and suspected hypercoagulable state remains subtherapeutic at INR 1.4 -continue therapeutic Lovenox dosing bid and coumadin dose increased to 7.5mg po daily -follow INR in AM Lupus anticoagulant weak positive from previous admission--> recommend repeat testing in 12 weeks anti-phospholipid abs negative homocysteine level elevated at 14.4 and had low normal B12 previously -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 We discussed vertigo, orthostasis and decreased balance. He feels his symptoms most likely correlated with orthostasis. Furosemide discontinued by previous provider with his first day of this medication today. No significant history of vertigo. Symptoms are always on standing. No fever, chills, numbness or tingling in his left hand distal to hematoma operation site. Shortness of breath much improved since I last saw him for his pneumonia. Review of Systems Review of Systems: All systems reviewed & are unremarkable except as noted in Subjective Physical Exam Constitutional: WD/WN, vitals as above Eyes: + anicteric sclerae Neck: trachea midline, no thyromegaly Respiratory: normal respiratory effort, lungs clear to auscultation Cardiovascular: Rate/Rhythm: regular rate and regular rhythm Heart Sounds: no murmur Extremities: + edema (1+ bilat,left forearm 1+) Gastrointestinal (Abdomen): normal bowel sounds, soft, nontender, no hepatosplenomegaly Musculoskeletal: Extremities: + extremities abnormal to inspection (LUE as above, left arm is wrapped), no cyanosis and no clubbing Skin: + rash (Venous stasis changes of bilateral lower extremities) Neurologic: moves all extremities and awake; no focal motor deficits Psychiatric: A+Ox3, euthymic affect Results & Data Results & Data ([facility]) Vital Signs (Past 12 Hours) Vital Signs Temp Pulse Resp BP BP Pulse Ox O2 Del Method 04/30/22 08:00 Room Air 04/30/22 08:40 61 18 97 04/30/22 07:28 36.6 C 60 16 181/80 H 168/82 H 94 Room Air O2 Flow Rate 04/30/22 08:00 04/30/22 08:40 2 04/30/22 07:28 PG Care Time/CCT Total # of Minutes Spent Total Time Spent with Patient: Total time spent is greater than 50% in coordination of care (as documented) at patient's floor/unit and/or counseling patient: Coding Level of Care Code 88895 Subseq Hosp Care Lvl 2 Diagnoses Hematoma T14.8XXA Orthostatic dizziness R42 Chest pain R07.9 Chest pain type: unspecified Generalized weakness R53.1 Constipation K59.00 Chronic venous insufficiency I87.2 Depression F32.9 Hypothyroidism E03.9 Paroxysmal atrial fibrillation I48.0 Thoracic aortic aneurysm (TAA) I71.20 Intractable back pain M54.9 Anemia D64.9 Venous thrombosis I82.90 GERD (gastroesophageal reflux disease) K21.9 Complex sleep apnea syndrome G47.31 (1) Chest pain Chest pain type: unspecified Qualified Code(s): R07.9 - Chest pain, unspecified
[2022-04-30] MEDS ORDERED: BACLOFEN 10 MG TAB PO SCH (14:00)
[2022-04-30] MEDS: WARFARIN SOD 7.5 MG TAB PO SCH (17:03)
[2022-04-30] MEDS: traZODone HCL 100 MG TAB PO SCH (21:23)
[2022-05-01] MEDS: LEVOTHYROXINE SODIUM 100 MCG TABLET PO SCH (05:43)
[2022-05-01 06:28] LABS: INR 1.3 (0.9-1.1); Prothrombin Time 13.9 Seconds (9.0-12.0)
[2022-05-01] MEDS: FLUTICASONE/VILANTEROL 200/25MCG 14 PUFFS/INHALER INH SCH (07:37)
[2022-05-01] MEDS: HYDROCODONE/ACETAMOPHEN 5/325MG TAB PO PRN ×3 (07:44→20:12)
[2022-05-01] MEDS: ALBUTEROL HFA 8 GM INHALER INH PRN (07:51)
[2022-05-01] MEDS: POLYETHYLENE (MIRALAX) 17 GM PACK PO SCH ×2 (09:11→20:12)
[2022-05-01] MEDS ORDERED: ONDANSETRON INJ 2 MG/ML 2 ML VIAL IV PRN (09:11)
[2022-05-01] MEDS: ESCITALOPRAM OXALATE 20 MG TAB PO SCH (09:11)
[2022-05-01] MEDS: PANTOprazole 40 MG TAB PO SCH ×2 (09:12→20:09)
[2022-05-01] MEDS: ENOXAPARIN INJ 30 MG/0.3 ML SYR SQ SCH ×2 (09:12→20:10)
[2022-05-01] MEDS: MULTIVITAMIN TAB PO SCH (09:12)
[2022-05-01] MEDS: CYANOCOBALAMIN (B-12) 500 MCG TABLET PO SCH (09:13)
[2022-05-01] MEDS: DOCUSATE SODIUM/SENNA 50/8.6MG TAB PO SCH ×2 (09:13→20:09)
[2022-05-01] MEDS: CHOLECALCIFEROL 1,000 UNITS 25 MCG TAB PO SCH (09:13)
[2022-05-01] MEDS: BACLOFEN 10 MG TAB PO SCH ×3 (09:14→20:09)
[2022-05-01] MEDS: AMIODARONE 200 MG TAB PO SCH (09:15)
[2022-05-01] MEDS: LIDOCAINE 5% 1 PATCH TD SCH (09:15)
--- NOTE | 2022-05-01 09:44 | Orthopedic Progress Note ---
Date of Service May 01, 2022 Assessment & Plan (1) Hematoma: Plan: POD #3 s/p I&D LUE, doing as well as expected. Resume diet. WBAT. Continue pain control. DVT prophylaxis: TEDs, SCDs while in hospital, Coumadin per Hospitalist service bridging with Lovenox 30 mg BID. Continue Prevena until 05/05/2022 and then can be changed to DSD and compressive sleeve /[employer]/FELIX. PT/OT. D/C planning. From an ortho standpoint he is fine for discharge; would have him f/u 05/05/22 to remove Prevena and dressing change if not in house at that time. Continue care per primary service. Admission and Anticipated Discharge Date Admission Date: April 25, 2022 Subjective LUE is feeling much better. C/O dizziness Physical Exam Physical Exam: LUE: Sensation to Light touch intact distally. BCR < 2 sec. Motor median, radial, ulna, AIN, PIN intact.Dressing clean, dry, intact. Prevena functioning without drainage. Non-tender to palpation about the elbow and forearm. Results & Data ([facility]) Vital Signs (Past 12 Hours) Vital Signs Temp Pulse Resp BP Pulse Ox O2 Del Method O2 Flow Rate 05/01/22 08:06 36.5 C 66 24 148/75 H 92 Nasal Cannula 2 05/01/22 07:52 65 18 93 Nasal Cannula 2 04/30/22 22:04 36.5 C 69 20 154/87 H 94 Room Air Laboratory Results 05/01/22 Range/Units 05:52 PT 13.9 H (9.0-12.0) Seconds INR 1.3 H (0.9-1.1)
--- NOTE | 2022-05-01 10:56 | Electrocardiogram Report ---
Test Reason : Blood Pressure : / mmHG Vent. Rate : 076 BPM Atrial Rate : 076 BPM P-R Int : 162 ms QRS Dur : 144 ms QT Int : 440 ms P-R-T Axes : 043 021 028 degrees QTc Int : 495 ms Normal sinus rhythm Right bundle branch block Lateral infarct (cited on or before 07-APR-2022) Abnormal ECG When compared with ECG of 23-APR-2022 15:11, T wave inversion no longer evident in Inferior leads T wave inversion no longer evident in Anterior leads Confirmed by Felix Mckenzie ([id number]) on 05/01/2022 10:56:11 AM Referred By: REFERRED SELF Confirmed By:Dick Mckenzie
--- NOTE | 2022-05-01 11:02 | CT Scan Report ---
CT OF THE HEAD WITHOUT CONTRAST CLINICAL HISTORY: dizziness, headache on anticoagulation COMPARISON STUDY: Head CT October 23, 2014. MRI of the brain March 12, 2009. CT DOSE: 1575.59 mGy.cm TECHNIQUE: Helical axial images of the head were obtained without IV contrast. Automated exposure con trol was utilized for the study. A dose lowering technique was utilized adhering to the principles o f ALARA. FINDINGS: This study is mildly compromised given difficulty positioning and motion artifact. No acute intracranial hemorrhage, midline shift or mass effect is present. Ventricular system is stable. Basa l cisterns are patent. There are no extra axial collections. Mild atrophy is noted. Ossification melida g the falx is incidentally noted. There are no findings to suggest acute dural sinus thrombosis or ac deanna territorial infarct. There is no acute calvarial fracture. Left maxillary sinus is diminutive. Th is is chronic. No displaced calvarial fractures are identified. IMPRESSION: 1. No acute intracranial findings. Exam mildly compromised by artifact. 2. No change in appearance of the brain. ACT 112: Negative or not required by law. Electronically signed by: Salazar Turner M.D. 05/01/2022 11:00 AM
[2022-05-01] MEDS: WARFARIN SOD 7.5 MG TAB PO SCH (17:16)
[2022-05-01] MEDS: DICLOFENAC SOD 1% GEL 100 GM TUBE EXT SCH ×2 (18:35→20:10)
--- NOTE | 2022-05-01 18:50 | Hospitalist Progress Note ---
Date of Service May 01, 2022 Assessment & Plan (1) Hematoma: Plan: left arm at site of previous thrombophlebitis now on Lovenox and coumadin (bridging) causing pain but no associated signs or symptoms of infection of hematoma -elevate limb above heart -increase frequency of hydrocodone prn -warm compresses did not help -hgb stable-ok to continue Lovenox/coumadin - would stop Lovenox once INR > 1.5 S/p incision and drainage left arm on April [address] Woodruff (2) Headache: Plan: Consistent with tension type headache likely coming from spasm in his trapezius muscles. Given ongoing since his operation I suspect it was just from a certain position he was in during the operation. No radicular symptoms concerning for need for cervical spine MRI Given associated dizziness and significant anticoagulation CT head obtained to rule out acute intracranial bleed - subsequently negative Use diclofenac gel on trapezius muscles b/l, heating pad Will defer lorazepam given he was relatively sedated when I saw him - but low dose could be used overnight if needed and he is awake Pain consult placed to assess for local trigger point injection (3) Orthostatic dizziness: Plan: Question if dizziness more related to trapezius muscle spasm as above vs. orthostasis [04/29] Sitting blood pressure 154/92, standing blood pressure 135/95 Patient gets dizzy when standing up. Will continue to hold lasix at this time as BP appears well controlled without this (4) Chest pain: Plan: Resolved (5) Generalized weakness: Plan: 2/2 prolonged (17 day) recent hospital stay. He was ambulating 80 feet during that stay with PT and felt well enough to go home at the time But obviously was not doing as well as he thought he was once he returned home PT/OT recommending rehab here referrals made to [facility] (6) Constipation: Plan: with severe colonic ileus prior hospitalization, now moving bowels regularly -continue Miralax and senna/docusate bid (7) Chronic venous insufficiency: Plan: noted (8) Depression: Plan: stable Continue Lexapro, trazodone nightly (9) Hypothyroidism: Plan: TSH recently normal, continue Synthroid 100 mcg daily (10) Paroxysmal atrial fibrillation: Plan: last admission had new diagnosis of WESLEY. AV kayla agents caused significant hypotension and was started on amiodarone Sinus on admission and remains in regular rhythm on exam - Continue amiodarone 200mg daily Continue warfarin/Lovenox bridge, stop Lovenox once INR > 1.5, careful up titration given hematoma (11) Thoracic aortic aneurysm (TAA): Plan: Thoracic aortic aneurysm Continued outpatient surveillance, no acute change (12) Intractable back pain: Plan: Chronic back pain With postlaminectomy syndrome of lumbosacral region, with spinal cord stimulator in place with Dilaudid pump Follows with pain management Continue pain pump Continue his usual hydrocodone and baclofen (13) Anemia: Plan: Hemoglobin 10.4 down from 13, blood loss suspect from hematoma should stabilize now hematoma was treated. No obvious bleeding anywhere else and just had EGD/colonoscopy last admission without bleeding Ferritin 83 on 04/16/2022, transferrin saturation 23% 04/16, normal serum iron and low TIBC suggestive of anemia of chronic disease B12 low normal at 323 last admission and folate normal With smudge cells but is leukopenic, no evidence of CLL on peripheral smear peripheral smear here interpreted as anemia of chronic disease (14) Venous thrombosis: Plan: Cephalic vein thrombosis - superficial venous thrombosis Clots occurred while on Eliquis last admission suggesting failure; patient was switched to warfarin after Lovenox bridge on prior discharge due to concern for recurrent clots and suspected hypercoagulable state remains subtherapeutic at INR 1.3 -continue therapeutic Lovenox dosing bid and coumadin dose increased to 7.5mg po daily -follow INR daily Lupus anticoagulant weak positive from previous admission--> recommend repeat testing in 12 weeks anti-phospholipid abs negative homocysteine level elevated at 14.4 and had low normal B12 previously -continue to replace B12 for hyperhomocysteinemia -recommend outpt f/u with Hematology -is already set up with anticoagulation clinic from prior admission but first appointment to be cancelled as is admitted to hospital (15) GERD (gastroesophageal reflux disease): Plan: found to have gastritis on EGD last admit Continue PPI twice daily (16) Complex sleep apnea syndrome: Plan VTE Prophylaxis - Lovenox/warfarin, stop Lovenox once INR > 1.5 Diet - heart healthy Disposition - continued stay on med/surg, PT/OT recommending rehab, referral placed to [facility] Admission and Anticipated Discharge Date Admission Date: April 25, 2022 Subjective Woke up with a much worse headache this morning. No prior history of migraines. Associated dizziness - similar to what he has been having. Headache all around his head, constant ache, not in front sinuses. Worse with palpation on his trapezius muscles. He reports the headache has always been there with his dizziness since the operation but much worse today. Review of Systems Review of Systems: All systems reviewed & are unremarkable except as noted in Subjective Physical Exam Constitutional: WD/WN, vitals as above Eyes: + anicteric sclerae Neck: trachea midline, no thyromegaly Respiratory: normal respiratory effort, lungs clear to auscultation Cardiovascular: Rate/Rhythm: regular rate and regular rhythm Heart Sounds: no murmur Extremities: + edema (1+ bilat,left forearm 1+) Gastrointestinal (Abdomen): normal bowel sounds, soft, nontender, no hepatosplenomegaly Musculoskeletal: Extremities: + extremities abnormal to inspection (LUE as above, left arm is wrapped), no cyanosis and no clubbing Significant pain and stiffness on trapazius muscles L > R Skin: + rash (Venous stasis changes of bilateral lower extremities) Neurologic: moves all extremities and awake; no focal motor deficits Psychiatric: A+Ox3, euthymic affect Results & Data Results & Data ([facility]) Vital Signs (Past 12 Hours) Vital Signs Temp Pulse Resp BP Pulse Ox O2 Del Method O2 Flow Rate 05/01/22 17:57 36.8 C 63 16 142/73 H 96 Room Air 05/01/22 07:33 Room Air 05/01/22 08:06 36.5 C 66 24 148/75 H 92 Nasal Cannula 2 05/01/22 07:52 65 18 93 Nasal Cannula 2 PG Care Time/CCT Total # of Minutes Spent Total Time Spent with Patient: Total time spent is greater than 50% in coordination of care (as documented) at patient's floor/unit and/or counseling patient: Coding Level of Care Code 78256 Subseq Hosp Care Lvl 2 Diagnoses Hematoma T14.8XXA Headache R51.9 Orthostatic dizziness R42 Chest pain R07.9 Chest pain type: unspecified Generalized weakness R53.1 Constipation K59.00 Chronic venous insufficiency I87.2 Depression F32.9 Hypothyroidism E03.9 Paroxysmal atrial fibrillation I48.0 Thoracic aortic aneurysm (TAA) I71.20 Intractable back pain M54.9 Anemia D64.9 Venous thrombosis I82.90 GERD (gastroesophageal reflux disease) K21.9 Complex sleep apnea syndrome G47.31 (1) Chest pain Chest pain type: unspecified Qualified Code(s): R07.9 - Chest pain, unspecified
[2022-05-01] MEDS: traZODone HCL 100 MG TAB PO SCH (20:09)
[2022-05-02] MEDS: HYDROCODONE/ACETAMOPHEN 5/325MG TAB PO PRN (05:26)
[2022-05-02] MEDS: LEVOTHYROXINE SODIUM 100 MCG TABLET PO SCH (05:26)
[2022-05-02] MEDS: FLUTICASONE/VILANTEROL 200/25MCG 14 PUFFS/INHALER INH SCH (09:42)
[2022-05-02] MEDS: CHOLECALCIFEROL 1,000 UNITS 25 MCG TAB PO SCH (09:44)
[2022-05-02] MEDS: BACLOFEN 10 MG TAB PO SCH ×3 (09:44→20:39)
[2022-05-02] MEDS: ESCITALOPRAM OXALATE 20 MG TAB PO SCH (09:44)
[2022-05-02] MEDS: AMIODARONE 200 MG TAB PO SCH (09:44)
[2022-05-02] MEDS: DOCUSATE SODIUM/SENNA 50/8.6MG TAB PO SCH ×2 (09:44→20:38)
[2022-05-02] MEDS: MULTIVITAMIN TAB PO SCH (09:44)
[2022-05-02] MEDS: PANTOprazole 40 MG TAB PO SCH ×2 (09:44→20:37)
[2022-05-02] MEDS: CYANOCOBALAMIN (B-12) 500 MCG TABLET PO SCH (09:44)
[2022-05-02] MEDS: LIDOCAINE 5% 1 PATCH TD SCH (09:45)
[2022-05-02] MEDS: DICLOFENAC SOD 1% GEL 100 GM TUBE EXT SCH ×4 (09:45→20:35)
[2022-05-02] MEDS: POLYETHYLENE (MIRALAX) 17 GM PACK PO SCH ×2 (09:45→20:40)
[2022-05-02 10:47] LABS: Hemoglobin 11.6 g/dl (14.0-18.0); Mean Corpuscular Hemoglobin 30.7 pg (25.0-34.0); Mean Corpuscular Hgb Conc 33.1 g/dL (32.0-36.0); Mean Corpuscular Volume 92.6 fL (80.0-100.0); Mean Platelet Volume 9.8 fL (9.4-12.4); Platelet Count 240 K/uL (130-400); RDW Coefficient of Variation 14.6 % (11.5-14.5); RDW Standard Deviation 49.8 fL (36.4-46.3); Red Blood Count 3.78 M/uL (4.63-6.08); White Blood Count 4.95 K/ul (4.8-10.8)
--- NOTE | 2022-05-02 11:03 | Orthopedic Progress Note ---
Date of Service May 02, 2022 Assessment & Plan (1) Hematoma: Plan: POD #4 s/p I&D LUE, doing well Resume diet. WBAT. Continue pain control. DVT prophylaxis: TEDs, SCDs while in hospital, Coumadin per Hospitalist service bridging with Lovenox 30 mg BID. Continue Prevena until 05/05/2022 and then can be changed to DSD and compressive sleeve /[employer] operating manager/FELIX. PT/OT. D/C planning. From an ortho standpoint he is fine for discharge; would have him f/u 05/05/22 to remove Prevena and dressing change if not in house at that time. Continue care per primary service. Present on Admission?: Yes Admission and Anticipated Discharge Date Admission Date: April 25, 2022 Supervising Physician Co-Signing Physician Notes I, Dr. Woodruff, saw and examined the patient and discussed the management with my PA. I reviewed my PAs note and agree with the documented findings and the plan of care I developed. Subjective Pt is POD #4, I&D of a hematoma. He was seen bedside this am. He is alert and oriented x 3 He states he is doing well. He denies any pain in the LUE. He states he is still having dizziiness and a headache. He states he has a hx of migraines. He denies this being the "worse headache" of his life or any vision changes. He denies any fever, chills, CP, or SOB Review of Systems Review of Systems: Please refer to H&P Physical Exam Physical Exam: General: pt is alert and oriented x3 sitting upright talking and answering questions appropriately. He is pleasant Musculoskeletal: LUE is in dressing/acewrap. digits are normal in color and temperature. Pt has no edema in the LUE. He is able to move the digits and wrist without any restrictions or c/o pain. Elbow motion is limited due to dressing as anticipated. Radial pulse is palpable, strong 2+ Integumentary: skin exposed is normal in color and temperature. Results & Data ([facility]) Vital Signs (Past 12 Hours) Vital Signs Temp Pulse Resp BP Pulse Ox O2 Del Method O2 Flow Rate 05/02/22 09:41 79 05/02/22 07:40 Room Air 05/02/22 07:30 36.4 C L 55 L 18 152/78 H 96 Room Air 05/02/22 06:31 95 Room Air 05/01/22 23:21 36.4 C L 62 16 135/77 94 Nasal Cannula 2 Laboratory Results 05/02/22 05/02/22 05/02/22 Range/Units 10:06 10:06 10:06 WBC (4.8-10.8) K/ul RBC (4.63-6.08) M/uL Hgb (14.0-18.0) g/dl Hct (40.1-51.0) % MCV (80.0-100.0) fL MCH (25.0-34.0) pg MCHC (32.0-36.0) g/dL RDW Std Deviation (36.4-46.3) fL RDW Coeff of Kj (11.5-14.5) % Plt Count (130-400) K/uL MPV (9.4-12.4) fL ESR 50 H (0-20) mm/hr PT Pending INR Pending Sodium Pending Potassium Pending Chloride Pending Carbon Dioxide Pending Anion Gap Pending BUN Pending Creatinine Pending Est Cr Clr Drug Dosing Pending Est GFR ( Amer) Pending Est GFR (Non-Af Amer) Pending BUN/Creatinine Ratio Pending Glucose Pending Calcium Pending Total Creatine Kinase Pending 05/02/22 Range/Units 10:06 WBC 4.95 (4.8-10.8) K/ul RBC 3.78 L (4.63-6.08) M/uL Hgb 11.6 L (14.0-18.0) g/dl Hct 35.0 L (40.1-51.0) % MCV 92.6 (80.0-100.0) fL MCH 30.7 (25.0-34.0) pg MCHC 33.1 (32.0-36.0) g/dL RDW Std Deviation 49.8 H (36.4-46.3) fL RDW Coeff of Kj 14.6 H (11.5-14.5) % Plt Count 240 (130-400) K/uL MPV 9.8 (9.4-12.4) fL ESR (0-20) mm/hr PT INR Sodium Potassium Chloride Carbon Dioxide Anion Gap BUN Creatinine Est Cr Clr Drug Dosing Est GFR ( Amer) Est GFR (Non-Af Amer) BUN/Creatinine Ratio Glucose Calcium Total Creatine Kinase
[2022-05-02 11:18] LABS: BUN Creatinine Ratio 17.3 (10-20); Creatinine Clr Calc Pharmacy 168.3 ml/min; Est GFR (African American) 129.7 ml/min; Est GFR (Non-African American) 111.9 ml/min; INR 1.6 (0.9-1.1); Potassium 3.8 mmol/L (3.5-5.1); Prothrombin Time 16.2 Seconds (9.0-12.0)
[2022-05-02] MEDS: ENOXAPARIN INJ 30 MG/0.3 ML SYR SQ SCH (11:22)
[2022-05-02] MEDS ORDERED: methylPREDNISolone 4 MG TAB, 6 DAY TAPER PO SCH (11:30)
--- NOTE | 2022-05-02 11:34 | Hospitalist Progress Note ---
Date of Service May 02, 2022 Assessment & Plan (1) Hematoma: Plan: left arm at site of previous thrombophlebitis now on Lovenox and coumadin (bridging) causing pain but no associated signs or symptoms of infection of hematoma -elevate limb above heart -increase frequency of hydrocodone prn -warm compresses did not help -hgb stable-ok to continue Lovenox/coumadin - would stop Lovenox once INR > 1.5 S/p incision and drainage left arm on April [address] Woodruff (2) Headache: Plan: Suspect combination of tension - neck pain on exam and migraine headache. Per prior neurology note triptans not being effective. He reports steroid pack is usually effective. Per previous neurology notes he gets a Medrol Dosepak. We will start this today. (3) Orthostatic dizziness: Plan: Suspect his dizziness is related to his migraine as above. CT head negative for intracranial pathology (4) Chest pain: Plan: Resolved (5) Generalized weakness: Plan: 2/2 prolonged (17 day) recent hospital stay. He was ambulating 80 feet during that stay with PT and felt well enough to go home at the time But obviously was not doing as well as he thought he was once he returned home Patient now wishing to be discharged home. Physical therapy recommending 24/7 care and patient to be on a single-story with home health to be set up. He has no specific medical needs that he requires to be in a intermediate although as we uptitrate his warfarin he would likely be better served at [facility]. (6) Constipation: Plan: with severe colonic ileus prior hospitalization, now moving bowels regularly -continue Miralax and senna/docusate bid (7) Chronic venous insufficiency: Plan: noted (8) Depression: Plan: stable Continue Lexapro, trazodone nightly (9) Hypothyroidism: Plan: TSH recently normal, continue Synthroid 100 mcg daily (10) Paroxysmal atrial fibrillation: Plan: last admission had new diagnosis of WESLEY. AV kayla agents caused significant hypotension and was started on amiodarone Sinus on admission and remains in regular rhythm on exam - Continue amiodarone 200mg daily Continue warfarin bridge, stop Lovenox now INR > 1.5, careful up titration given hematoma (11) Thoracic aortic aneurysm (TAA): Plan: Thoracic aortic aneurysm Continued outpatient surveillance, no acute change (12) Intractable back pain: Plan: Chronic back pain With postlaminectomy syndrome of lumbosacral region, with spinal cord stimulator in place with Dilaudid pump Follows with pain management Continue pain pump Continue his usual hydrocodone and baclofen (13) Anemia: Plan: Hemoglobin 10.4 down from 13, blood loss suspect from hematoma should stabilize now hematoma was treated. No obvious bleeding anywhere else and just had EGD/colonoscopy last admission without bleeding Ferritin 83 on 04/16/2022, transferrin saturation 23% 04/16, normal serum iron and low TIBC suggestive of anemia of chronic disease B12 low normal at 323 last admission and folate normal With smudge cells but is leukopenic, no evidence of CLL on peripheral smear peripheral smear here interpreted as anemia of chronic disease (14) Venous thrombosis: Plan: Cephalic vein thrombosis - superficial venous thrombosis Clots occurred while on Eliquis last admission suggesting failure; patient was switched to warfarin after Lovenox bridge on prior discharge due to concern for recurrent clots and suspected hypercoagulable state remains subtherapeutic at INR 1.3 -continue therapeutic Lovenox dosing bid and coumadin dose increased to 7.5mg po daily -follow INR daily Lupus anticoagulant weak positive from previous admission--> recommend repeat testing in 12 weeks anti-phospholipid abs negative homocysteine level elevated at 14.4 and had low normal B12 previously -continue to replace B12 for hyperhomocysteinemia -recommend outpt f/u with Hematology -is already set up with anticoagulation clinic from prior admission but first appointment to be cancelled as is admitted to hospital (15) GERD (gastroesophageal reflux disease): Plan: found to have gastritis on EGD last admit Continue PPI twice daily (16) Complex sleep apnea syndrome: Plan VTE Prophylaxis -continue warfarin. Stop ceftriaxone ox now INR is greater than 1.5. Diet - heart healthy Disposition - continued stay on med/surg, PT/OT recommending rehab, patient is medically stable for discharge at this time Admission and Anticipated Discharge Date Admission Date: April 25, 2022 Subjective Reports that headache is similar to his previous migraines today. Previously triptans have not been effective for this. He usually gets a steroid pack from his neurologist. Pain management to see today. Apart from his headache and ongoing dizziness no other acute concerns or questions today. Review of Systems Review of Systems: All systems reviewed & are unremarkable except as noted in Subjective Physical Exam Constitutional: WD/WN, vitals as above Eyes: + anicteric sclerae Neck: trachea midline, no thyromegaly Respiratory: normal respiratory effort, lungs clear to auscultation Cardiovascular: Rate/Rhythm: regular rate and regular rhythm Heart Sounds: no murmur Extremities: + edema (1+ bilat,left forearm 1+) Gastrointestinal (Abdomen): normal bowel sounds, soft, nontender, no hepatosplenomegaly Musculoskeletal: Extremities: + extremities abnormal to inspection (LUE as above, left arm is wrapped), no cyanosis and no clubbing Skin: + rash (Venous stasis changes of bilateral lower extremities) Neurologic: moves all extremities and awake; no focal motor deficits Psychiatric: A+Ox3, euthymic affect Results & Data Results & Data ([facility]) Vital Signs (Past 12 Hours) Vital Signs Temp Pulse Resp BP Pulse Ox O2 Del Method 05/02/22 09:41 79 05/02/22 07:40 Room Air 05/02/22 07:30 36.4 C L 55 L 18 152/78 H 96 Room Air 05/02/22 06:31 95 Room Air PG Care Time/CCT Total # of Minutes Spent Total Time Spent with Patient: Total time spent is greater than 50% in coordination of care (as documented) at patient's floor/unit and/or counseling patient: Coding Level of Care Code 39766 Subseq Hosp Care Lvl 2 Diagnoses Hematoma T14.8XXA Headache R51.9 Orthostatic dizziness R42 Chest pain R07.9 Chest pain type: unspecified Generalized weakness R53.1 Constipation K59.00 Chronic venous insufficiency I87.2 Depression F32.9 Hypothyroidism E03.9 Paroxysmal atrial fibrillation I48.0 Thoracic aortic aneurysm (TAA) I71.20 Intractable back pain M54.9 Anemia D64.9 Venous thrombosis I82.90 GERD (gastroesophageal reflux disease) K21.9 Complex sleep apnea syndrome G47.31 (1) Chest pain Chest pain type: unspecified Qualified Code(s): R07.9 - Chest pain, unspecified
[2022-05-02] MEDS: methylPREDNISolone 4 MG TAB PO SCH ×4 (12:39→20:37)
--- NOTE | 2022-05-02 12:51 | Pain Management Consultation ---
Date of Consultation May 02, 2022 Assessment & Plan (1) Headache: (2) Kyphoscoliosis: (3) Intractable back pain: (4) Opioid dependence in controlled environment: Plan 1. Medrol pack already ordered. Patient states that this is typically effective towards diminishing his migraines. 2. Continue Baclofen 10mg three times daily. 3. Continue Voltaren gel onto the neck. 4. I would not recommend trigger point injections given that there is hyperalgesia from neck to low back and is nonfocal. Given his recent surgery, trigger point injections containing Ropivacaine, Toradol, and Kenalog could effect healing time and could increase chance of re-bleed. 5. I have interrogated the patient's intrathecal pump and lowered the low reservoir volume down from 2 mL to 1 mL which increases his pump refill alarm date to 06/07/2022. He will be contacted with the new pump refill date. 6. Continue Hydrocodone 5/325mg x 4 hours PRN pain. Thank you for the consultation. Please contact with any further questions or concerns. History of Present Illness Reason for Consultation: Migraine, neck pain Attending Physician: Don Le MD History of Present Illness This is a 66-year-old male that is well-known to the [facility] pain service with a history of chronic intractable thoracolumbar back pain that has required the implantation of an intrathecal pain pump and catheter delivery system. He did have an I&D performed of a left arm hematoma on 04/28/2022. Patient states that when he woke up after the surgical procedure he has been experiencing neck pain and a migraine headache. He does have a chronic history of migraine headaches which she does see neurology and receives intermittent oral steroids which does alleviate his symptoms. Voltaren gel and [place] has been provided for neck pain which is slightly helpful. Patient rates his pain a 7/10 at its best and 10/10 at its worst. He does also receive baclofen 10 mg 3 times daily. Patient denies any radicular symptoms down the arms. This migraine does feel like its typical. Migraine is diffusely aching. There is some brain fog, photosensitivity, phono sensitivity. No vision changes or extremity weakness. In regards to intrathecal pump he has not used the PTM during admission. He does have a spinal cord stimulator in place and has not used or charged it since admission. Case discussed with Dr. Esha Chavez Allergies Allergy/AdvReac Type Severity Reaction Status Date / Time Penicillins Allergy Unknown Rash Verified 04/23/22 15:38 sumatriptan [From Imitrex] Allergy Rash Verified 04/23/22 15:38 Home Medications Medication Instructions Recorded Confirmed Type multivitamin 1 tab PO DAILY 05/17/18 04/23/22 History cholecalciferol (vitamin D3) 25 1,000 unit PO DAILY 01/28/19 04/23/22 History mcg (1,000 unit) tablet furosemide 40 mg tablet 40 mg PO DAILY #90 tabs 05/24/21 04/23/22 Rx naloxone 4 mg/actuation nasal 4 mg intranasal Q2M PRN opioid 07/21/21 04/23/22 Rx spray (Narcan) overdose #2 ea albuterol sulfate 90 mcg/actuation 2 puff inhalation Q6H PRN 09/29/21 04/23/22 History aerosol inhaler (ProAir HFA) Shortness Of Breath fluticasone 500 mcg-salmeterol 50 1 inh inhalation BID 09/29/21 04/23/22 History mcg/dose blistr powdr for inhalation (Wixela Inhub) baclofen 10 mg tablet 10 mg PO TID #30 tabs 10/27/21 04/23/22 Rx trazodone 50 mg tablet 100 mg PO HS 90 days #180 tabs 01/26/22 04/23/22 Rx escitalopram oxalate 20 mg tablet 20 mg PO DAILY 02/02/22 04/23/22 History (Lexapro) hydrocodone 5 mg-acetaminophen 325 1 tab PO BID PRN break through 02/02/22 04/23/22 Rx mg tablet pain #60 tabs levothyroxine 100 mcg tablet 100 mcg PO QAM #90 tabs 02/20/22 04/23/22 Rx amiodarone 200 mg tablet 200 mg PO DAILY #30 tabs 04/18/22 04/23/22 Rx cyanocobalamin (vitamin B-12) 1,000 mcg PO DAILY #30 caps 04/18/22 04/23/22 Rx 1,000 mcg capsule pantoprazole 40 mg tablet,delayed 40 mg PO BID #60 tabs 04/18/22 04/23/22 Rx release polyethylene glycol 3350 8.5 gram 17 gm PO BID #72 ea 04/18/22 04/23/22 Rx oral powder packet sennosides 8.6 mg-docusate sodium 1 tab PO BID #60 tabs 04/18/22 04/23/22 Rx 50 mg tablet (Senokot-S) warfarin 5 mg tablet 5 mg PO DAILY@1600 #30 tabs 04/18/22 04/23/22 Rx Patient History Medical History Acute thrombosis of cephalic vein Anemia Chronic venous stasis dermatitis Complex sleep apnea syndrome Constipation Depression HILTON (dyspnea on exertion) GERD (gastroesophageal reflux disease) History of broken collarbone Hypertension Hypothyroidism 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 of anticoagulants with INR goal of 2.0-3.0 Lower extremity venous stasis Lumbar stenosis Osteoporosis Paroxysmal atrial fibrillation Pneumonia Postlaminectomy syndrome of lumbosacral region Presence of intrathecal pump Sacroiliitis Testicular hernia history of Thoracic aortic aneurysm (TAA) dilation of the ascending thoracic aorta measures up to 4.5 cm at the level of the main pulmonary artery Venous thrombosis Surgical History Encounter for post-sterilization vasoplasty History of appendectomy Previous back surgery S/P hernia repair Family History Mother Colitis Brother Colitis Hypertension Sister Hypertension Father Hypertension Prostate cancer Myocardial infarction Denies family history of Ovarian cancer Coronary heart disease Breast cancer Colorectal cancer Social History Smoking Status: Never smoker Second Hand Exposure: No; Hx Alcohol Use: No Hx Substance Use: No Preferred Language: Maori Communication Ability: Effective Visual Impairment: Limited Hearing Ability: Normal 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 EYES: No drainage or conjunctival injection. ENT: Nose without bleeding or discharge. Oral mucosa moist. NECK: Diffuse hyperalgesia along the upper cervical region and into the left trapezius muscle. RESPIRATORY: Patient with unlabored breathing. No signs of respiratory distress. CHEST/AXILLA: Chest movement symmetrical. No deformities noted. ABDOMEN/GI: Intrathecal pump is located in the right lower quadrant. BACK: Severe scoliosis. There is hyperalgesia from the mid thoracic to the lower lumbar region. Mild myofascial spasm noted. SKIN: [place], warm and dry. No rash noted. MS/EXTREMITY: No swelling, no deformities. Left arm is bandaged. NEURO: Alert and appears oriented. Speech is fluent. Cranial Nerves are grossly intact. PSYCH: Alert, pleasant, affect is calm
[2022-05-02] MEDS: WARFARIN SOD 7.5 MG TAB PO SCH (16:49)
[2022-05-02] MEDS: traZODone HCL 100 MG TAB PO SCH (20:38)
[2022-05-03] MEDS: methylPREDNISolone 4 MG TAB PO SCH ×3 (06:07→17:25)
[2022-05-03] MEDS: LEVOTHYROXINE SODIUM 100 MCG TABLET PO SCH (06:07)
[2022-05-03] MEDS: LIDOCAINE 5% 1 PATCH TD SCH (10:06)
[2022-05-03] MEDS: FLUTICASONE/VILANTEROL 200/25MCG 14 PUFFS/INHALER INH SCH (10:06)
[2022-05-03] MEDS: POLYETHYLENE (MIRALAX) 17 GM PACK PO SCH ×2 (10:06→21:57)
[2022-05-03] MEDS: CYANOCOBALAMIN (B-12) 500 MCG TABLET PO SCH (10:07)
[2022-05-03] MEDS: DOCUSATE SODIUM/SENNA 50/8.6MG TAB PO SCH ×2 (10:07→21:54)
[2022-05-03] MEDS: BACLOFEN 10 MG TAB PO SCH ×3 (10:07→21:55)
[2022-05-03] MEDS: CHOLECALCIFEROL 1,000 UNITS 25 MCG TAB PO SCH (10:07)
[2022-05-03] MEDS: AMIODARONE 200 MG TAB PO SCH (10:07)
[2022-05-03] MEDS: ESCITALOPRAM OXALATE 20 MG TAB PO SCH (10:07)
[2022-05-03] MEDS: MULTIVITAMIN TAB PO SCH (10:07)
[2022-05-03] MEDS: PANTOprazole 40 MG TAB PO SCH ×2 (10:07→21:58)
[2022-05-03] MEDS: DICLOFENAC SOD 1% GEL 100 GM TUBE EXT SCH ×4 (10:08→21:53)
[2022-05-03] MEDS: ALBUTEROL HFA 8 GM INHALER INH PRN ×2 (10:30→20:02)
[2022-05-03] MEDS: HYDROCODONE/ACETAMOPHEN 5/325MG TAB PO PRN ×2 (10:41→19:39)
[2022-05-03 12:31] LABS: INR 2.2 (0.9-1.1); Prothrombin Time 22.8 Seconds (9.0-12.0)
[2022-05-03] MEDS ORDERED: dexAMETHasone**PF** 10 MG/ML VIAL IM ONE (13:48)
[2022-05-03] MEDS ORDERED: dexAMETHasone 10 MG in SYRINGE 0 ML IV ONE (14:00)
--- NOTE | 2022-05-03 14:02 | Hospitalist Progress Note ---
Date of Service May 03, 2022 Assessment & Plan (1) Hematoma: Plan: left arm at site of previous thrombophlebitis causing pain but no associated signs or symptoms of infection of hematoma -elevate limb above heart -increase frequency of hydrocodone prn -warm compresses did not help -hgb stable-ok to continue warfarin with goal aim 2-3 S/p incision and drainage left arm on April [address] Woodruff, appreciate orthopedics ongoing management of this (2) Headache: Plan: Suspect combination of tension (neck pain on exam) and migraine headache (history of this). Suspect started after his operation due to head positioning during the surgery. Per prior neurology note triptans not being effective. He reports steroid pack is usually effective. Per previous neurology notes he gets a Medrol Dosepak. No significant improvement with medrol dosepak. No longer has IV access. Will give dexamethasone 10mg IM. If ongoing use lorazepam 0.5mg PO for neck spasm as prescribed. If lorazepam not effective will need to obtain IV access for further treatment such as Valproic acid / Compazine (will get EKG for up to date QTC in anticipation of this). Use warm compress / heating pad on left neck (3) Orthostatic dizziness: Plan: Suspect his dizziness is mostly related to his migraine as above. CT head negative for intracranial pathology Will hold off restarting lasix given headache and reasonaly controlled BP given his ongoing pain (4) Chest pain: Plan: Resolved (5) Generalized weakness: Plan: 2/2 prolonged (17 day) recent hospital stay. He was ambulating 80 feet during that stay with PT and felt well enough to go home at the time But obviously was not doing as well as he thought he was once he returned home Patient now wishing to be discharged home. Physical therapy recommending 24/ care and patient to be on a single-story with home health to be set up. He has no specific medical needs that he requires to be in a jail although as we titrate his warfarin he would likely be better served at [facility]. (6) Constipation: Plan: with severe colonic ileus prior hospitalization, now moving bowels regularly -continue Miralax and senna/docusate bid (7) Chronic venous insufficiency: Plan: noted (8) Depression: Plan: stable Continue Lexapro, trazodone nightly (9) Hypothyroidism: Plan: TSH recently normal, continue Synthroid 100 mcg daily (10) Paroxysmal atrial fibrillation: Plan: last admission had new diagnosis of WESLEY. AV kayla agents caused significant hypotension and was started on amiodarone Sinus on admission and remains in regular rhythm on exam - Continue amiodarone 200mg daily Continue warfarin as below (11) Thoracic aortic aneurysm (TAA): Plan: Thoracic aortic aneurysm Continued outpatient surveillance, no acute change (12) Intractable back pain: Plan: Chronic back pain With postlaminectomy syndrome of lumbosacral region, with spinal cord stimulat or in place with Dilaudid pump Follows with pain management - consulted this admission Continue pain pump Continue his usual hydrocodone and baclofen (13) Anemia: Plan: Hemoglobin 10.4 down from 13, blood loss suspect from hematoma should stabilize now hematoma was treated. No obvious bleeding anywhere else and just had EGD/colonoscopy last admission without bleeding Ferritin 83 on 04/16/2022, transferrin saturation 23% 04/16, normal serum iron and low TIBC suggestive of anemia of chronic disease B12 low normal at 323 last admission and folate normal With smudge cells but is leukopenic, no evidence of CLL on peripheral smear peripheral smear here interpreted as anemia of chronic disease (14) Venous thrombosis: Plan: Cephalic vein thrombosis - superficial venous thrombosis Clots occurred while on Eliquis last admission suggesting failure; patient was switched to warfarin after Lovenox bridge on prior discharge due to concern for recurrent clots and suspected hypercoagulable state - follow INR daily Lupus anticoagulant weak positive from previous admission--> recommend repeat testing in 12 weeks anti-phospholipid abs negative homocysteine level elevated at 14.4 and had low normal B12 previously -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 Diet - heart healthy Disposition - continued stay on med/surg, PT/OT recommending rehab Admission and Anticipated Discharge Date Admission Date: April 25, 2022 Subjective No improvement of his headache. No radicular pain. Mainly over the left side of his head. He is unsure if this is like his previous migraine anymore just asks me to help him. Unable to tell me if it is pulsating. Review of Systems Review of Systems: All systems reviewed & are unremarkable except as noted in Subjective Physical Exam Constitutional: WD/WN, vitals as above Neck: trachea midline, no thyromegaly Respiratory: normal respiratory effort, lungs clear to auscultation Cardiovascular: Rate/Rhythm: regular rate and regular rhythm Heart Sounds: no murmur Extremities: + edema (1+ bilat,left forearm 1+) Gastrointestinal (Abdomen): normal bowel sounds, soft, nontender, no hepatosplenomegaly Musculoskeletal: Extremities: + extremities abnormal to inspection (LUE as above, left arm is wrapped) Pain on palpation of left trapezius Skin: + rash (Venous stasis changes of bilateral lower extremities) Neurologic: moves all extremities and awake; no focal motor deficits Psychiatric: A+Ox3, euthymic affect Results & Data Results & Data ([facility]) Vital Signs (Past 12 Hours) Vital Signs Temp Pulse Resp BP Pulse Ox O2 Del Method 05/03/22 10:30 69 20 96 Room Air 05/03/22 07:13 36.7 C 60 19 149/74 H 94 Room Air PG Care Time/CCT Total # of Minutes Spent Total Time Spent with Patient: Total time spent is greater than 50% in coordination of care (as documented) at patient's floor/unit and/or counseling patient: Coding Level of Care Code 68885 Subseq Hosp Care Lvl 2 Diagnoses Hematoma T14.8XXA Headache R51.9 Orthostatic dizziness R42 Chest pain R07.9 Chest pain type: unspecified Generalized weakness R53.1 Constipation K59.00 Chronic venous insufficiency I87.2 Depression F32.9 Hypothyroidism E03.9 Paroxysmal atrial fibrillation I48.0 Thoracic aortic aneurysm (TAA) I71.20 Intractable back pain M54.9 Anemia D64.9 Venous thrombosis I82.90 GERD (gastroesophageal reflux disease) K21.9 Complex sleep apnea syndrome G47.31 (1) Chest pain Chest pain type: unspecified Qualified Code(s): R07.9 - Chest pain, unspecified
[2022-05-03] MEDS: WARFARIN SOD 2.5 MG TAB PO SCH (17:45)
--- NOTE | 2022-05-03 19:43 | Electrocardiogram Report ---
Test Reason : Blood Pressure : / mmHG Vent. Rate : 069 BPM Atrial Rate : 069 BPM P-R Int : 154 ms QRS Dur : 146 ms QT Int : 454 ms P-R-T Axes : 032 023 018 degrees QTc Int : 486 ms Normal sinus rhythm Right bundle branch block Abnormal ECG When compared with ECG of 01-MAY-2022 09:34, T wave inversion now evident in Anterior leads Confirmed by Felix Mckenzie ([id number]) on 05/03/2022 7:42:32 PM Referred By: REFERRED SELF Confirmed By:Dick Mckenzie
[2022-05-03] MEDS ORDERED: methylPREDNISolone 4 MG TAB PO SCH (21:00)
[2022-05-03] MEDS: traZODone HCL 100 MG TAB PO SCH (21:55)
[2022-05-04] MEDS: LEVOTHYROXINE SODIUM 100 MCG TABLET PO SCH (06:04)
[2022-05-04] MEDS: methylPREDNISolone 4 MG TAB PO SCH ×4 (06:04→20:34)
[2022-05-04] MEDS: HYDROCODONE/ACETAMOPHEN 5/325MG TAB PO PRN ×3 (06:45→19:26)
[2022-05-04] MEDS: DICLOFENAC SOD 1% GEL 100 GM TUBE EXT SCH ×4 (08:28→20:32)
[2022-05-04] MEDS: AMIODARONE 200 MG TAB PO SCH (08:28)
[2022-05-04] MEDS: MULTIVITAMIN TAB PO SCH (08:28)
[2022-05-04] MEDS: CYANOCOBALAMIN (B-12) 500 MCG TABLET PO SCH (08:28)
[2022-05-04] MEDS: BACLOFEN 10 MG TAB PO SCH ×3 (08:28→20:33)
[2022-05-04] MEDS: ESCITALOPRAM OXALATE 20 MG TAB PO SCH (08:28)
[2022-05-04] MEDS: CHOLECALCIFEROL 1,000 UNITS 25 MCG TAB PO SCH (08:28)
[2022-05-04] MEDS: DOCUSATE SODIUM/SENNA 50/8.6MG TAB PO SCH ×2 (08:28→20:33)
[2022-05-04] MEDS: PANTOprazole 40 MG TAB PO SCH ×2 (08:28→20:35)
[2022-05-04 08:29] LABS: Hematocrit (blood only) 32.6 % (40.1-51.0); Hemoglobin 10.8 g/dl (14.0-18.0); Mean Corpuscular Hemoglobin 30.5 pg (25.0-34.0); Mean Corpuscular Hgb Conc 33.1 g/dL (32.0-36.0); Mean Corpuscular Volume 92.1 fL (80.0-100.0); Mean Platelet Volume 9.7 fL (9.4-12.4); Platelet Count 258 K/uL (130-400); RDW Coefficient of Variation 14.5 % (11.5-14.5); RDW Standard Deviation 49.3 fL (36.4-46.3); Red Blood Count 3.54 M/uL (4.63-6.08)
[2022-05-04] MEDS: LIDOCAINE 5% 1 PATCH TD SCH (08:29)
[2022-05-04] MEDS: FLUTICASONE/VILANTEROL 200/25MCG 14 PUFFS/INHALER INH SCH (08:29)
[2022-05-04] MEDS: POLYETHYLENE (MIRALAX) 17 GM PACK PO SCH ×2 (08:29→20:34)
[2022-05-04 08:46] LABS: INR 2.7 (0.9-1.1); Prothrombin Time 27.4 Seconds (9.0-12.0)
[2022-05-04 08:55] LABS: BUN Creatinine Ratio 27.5 (10-20); Calcium 8.8 mg/dl (8.5-10.1); Creatinine Clr Calc Pharmacy 171.6 ml/min; Est GFR (African American) 130.7 ml/min; Est GFR (Non-African American) 112.8 ml/min; Potassium 4.6 mmol/L (3.5-5.1)
[2022-05-04] MEDS: ALBUTEROL HFA 8 GM INHALER INH PRN (09:18)
[2022-05-04] MEDS: WARFARIN SOD 2.5 MG TAB PO SCH (16:45)
--- NOTE | 2022-05-04 19:49 | Hospitalist Progress Note ---
Date of Service May 04, 2022 Assessment & Plan (1) Hematoma: Plan: left arm at site of previous thrombophlebitis causing pain but no associated signs or symptoms of infection of hematoma -elevate limb above heart -increase frequency of hydrocodone prn -warm compresses did not help -hgb stable-ok to continue warfarin with goal aim 2-3 S/p incision and drainage left arm on April [address] Woodruff, appreciate orthopedics ongoing management of this (2) Headache: Plan: Suspect combination of tension (neck pain on exam) and migraine headache (history of this). Suspect started after his operation due to head positioning during the surgery. Per prior neurology note triptans not being effective. He reports steroid pack is usually effective. Per previous neurology notes he gets a Medrol Dosepak. No significant improvement with medrol dosepak. No longer has IV access. Will give dexamethasone 10mg IM. If ongoing use lorazepam 0.5mg PO for neck spasm as prescribed. If lorazepam not effective will need to obtain IV access for further treatment such as Valproic acid / Compazine (will get EKG for up to date QTC in anticipation of this). Use warm compress / heating pad on left neck Patient appears to have a low pain threshold. Pateint will have spouse bring in Personal director of operations for therapy so he can use his pain medicine. Patient refusing discharge until his pain is better. LIkely this is related to his positioning. Recommended that he move around and sit in the chair. (3) Orthostatic dizziness: Plan: Suspect his dizziness is mostly related to his migraine as above. CT head negative for intracranial pathology Will hold off restarting lasix given headache and reasonaly controlled BP given his ongoing pain (4) Chest pain: Plan: Resolved (5) Generalized weakness: Plan: 2/2 prolonged (17 day) recent hospital stay. He was ambulating 80 feet during that stay with PT and felt well enough to go home at the time But obviously was not doing as well as he thought he was once he returned home Patient now wishing to be discharged home. Physical therapy recommending 24/ care and patient to be on a single-story with home health to be set up. He has no specific medical needs that he requires to be in a residential although as we titrate his warfarin [facility] (6) Constipation: Plan: with severe colonic ileus prior hospitalization, now moving bowels regularly -continue Miralax and senna/docusate bid (7) Chronic venous insufficiency: Plan: noted (8) Depression: Plan: stable Continue Lexapro, trazodone nightly (9) Hypothyroidism: Plan: TSH recently normal, continue Synthroid 100 mcg daily (10) Paroxysmal atrial fibrillation: Plan: last admission had new diagnosis of WESLEY. AV kayla agents caused significant hypotension and was started on amiodarone Sinus on admission and remains in regular rhythm on exam - Continue amiodarone 200mg daily Continue warfarin as below (11) Thoracic aortic aneurysm (TAA): Plan: Thoracic aortic aneurysm Continued outpatient surveillance, no acute change (12) Intractable back pain: Plan: Chronic back pain With postlaminectomy syndrome of lumbosacral region, with spinal cord stimulator in place with Dilaudid pump Follows with pain management - consulted this admission Continue pain pump Continue his usual hydrocodone and baclofen (13) Anemia: Plan: Hemoglobin 10.4 down from 13, blood loss suspect from hematoma should stabilize now hematoma was treated. No obvious bleeding anywhere else and just had EGD/colonoscopy last admission without bleeding Ferritin 83 on 04/16/2022, transferrin saturation 23% 04/16, normal serum iron and low TIBC suggestive of anemia of chronic disease B12 low normal at 323 last admission and folate normal With smudge cells but is leukopenic, no evidence of CLL on peripheral smear peripheral smear here interpreted as anemia of chronic disease (14) Venous thrombosis: Plan: Cephalic vein thrombosis - superficial venous thrombosis Clots occurred while on Eliquis last admission suggesting failure; patient was switched to warfarin after Lovenox bridge on prior discharge due to concern for recurrent clots and suspected hypercoagulable state - follow INR daily Lupus anticoagulant weak positive from previous admission--> recommend repeat testing in 12 weeks anti-phospholipid abs negative homocysteine level elevated at 14.4 and had low normal B12 previously -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 Diet - heart healthy Disposition - continued stay on med/surg, PT/OT recommending rehab Admission and Anticipated Discharge Date Admission Date: April 25, 2022 Subjective Patient reports that he continues to have pain in his left neck and left shouder. Review of Systems Review of Systems: All systems reviewed & are unremarkable except as noted in HPI & below Physical Exam Constitutional: WD/WN, vitals as above Eyes: + anicteric sclerae Neck: trachea midline, no thyromegaly Respiratory: normal respiratory effort, lungs clear to auscultation (except diminished BS at bases bilat) Cardiovascular: Rate/Rhythm: regular rate and regular rhythm Heart Sounds: no murmur Extremities: + edema (1+ woody edema legs bilat,left forearm 1+) Gastrointestinal (Abdomen): normal bowel sounds, soft, nontender, no hepatosplenomegaly Musculoskeletal: Extremities: + extremities abnormal to inspection (LUE as above, left arm is wrapped), no cyanosis and no clubbing Skin: no rashes, warm and dry + rash (purplish discoloration legs,chronic venous stasis changes bilat) Neurologic: moves all extremities and awake; no focal motor deficits Psychiatric: A+Ox3, euthymic affect Results & Data Results & Data ([facility]) Vital Signs (Past 12 Hours) Vital Signs Temp Pulse Resp BP Pulse Ox O2 Del Method 05/04/22 16:00 36.7 C 75 18 148/73 H 94 Room Air 05/04/22 09:19 20 96 Room Air PG Care Time/CCT Total # of Minutes Spent Total Time Spent with Patient: Total time spent is greater than 50% in coordination of care (as documented) at patient's floor/unit and/or counseling patient: Coding Level of Care Code 44391 Subseq Hosp Care Lvl 3 Diagnoses Hematoma T14.8XXA Headache R51.9 Orthostatic dizziness R42 Chest pain R07.9 Chest pain type: unspecified Generalized weakness R53.1 Constipation K59.00 Chronic venous insufficiency I87.2 Depression F32.9 Hypothyroidism E03.9 Paroxysmal atrial fibrillation I48.0 Thoracic aortic aneurysm (TAA) I71.20 Intractable back pain M54.9 Anemia D64.9 Venous thrombosis I82.90 GERD (gastroesophageal reflux disease) K21.9 Complex sleep apnea syndrome G47.31 Time Spent (min) 35 Comment d/w pain specialist and patient (1) Chest pain Chest pain type: unspecified Qualified Code(s): R07.9 - Chest pain, unspecified
[2022-05-04] MEDS: LORazepam 0.5 MG TAB PO PRN (20:33)
[2022-05-04] MEDS: traZODone HCL 100 MG TAB PO SCH (20:34)
[2022-05-05] MEDS: ONDANSETRON 4 MG OD TAB PO PRN ×2 (05:42→14:48)
[2022-05-05] MEDS: LEVOTHYROXINE SODIUM 100 MCG TABLET PO SCH (06:23)
[2022-05-05] MEDS: methylPREDNISolone 4 MG TAB PO SCH ×3 (06:24→20:02)
--- NOTE | 2022-05-05 08:29 | Orthopedic Progress Note ---
Date of Service May 05, 2022 Assessment & Plan (1) Hematoma: Plan: POD #5 s/p I&D LUE, doing well Resume diet. WBAT. Continue pain control. DVT prophylaxis: TEDs, SCDs while in hospital, Coumadin per Hospitalist service bridging with Lovenox 30 mg BID. D/C Prevena 05/05/2022 and changed to DSD and FELIX may alternatively use a compressive sleeve /Tuba movie extra. PT/OT. D/C planning. From an ortho standpoint he is fine for discharge; f/u in office in 1 week for suture removal. Continue care per primary service. Admission and Anticipated Discharge Date Admission Date: April 25, 2022 Subjective LUE feels good. Still with headache. Physical Exam Physical Exam: LUE: Sensation to Light touch intact distally. BCR < 2 sec. Motor median, radial, ulna, AIN, PIN intact. Incision clean, dry, intact. Non- tender to palpation about the elbow and forearm. + Bruising about the forearm. Results & Data ([facility]) Vital Signs (Past 12 Hours) Vital Signs Temp Pulse Resp BP Pulse Ox O2 Del Method 05/05/22 06:34 36.3 C L 60 18 156/75 H 95 Room Air 05/04/22 21:25 36.5 C 67 18 158/72 H 95 Room Air
[2022-05-05] MEDS: FLUTICASONE/VILANTEROL 200/25MCG 14 PUFFS/INHALER INH SCH (08:57)
[2022-05-05] MEDS: LIDOCAINE 5% 1 PATCH TD SCH (08:58)
[2022-05-05] MEDS: DICLOFENAC SOD 1% GEL 100 GM TUBE EXT SCH ×4 (09:02→20:04)
[2022-05-05] MEDS: BACLOFEN 10 MG TAB PO SCH ×3 (09:02→20:04)
[2022-05-05] MEDS: PANTOprazole 40 MG TAB PO SCH ×2 (09:02→20:04)
[2022-05-05] MEDS: DOCUSATE SODIUM/SENNA 50/8.6MG TAB PO SCH ×2 (09:03→20:02)
[2022-05-05] MEDS: CYANOCOBALAMIN (B-12) 500 MCG TABLET PO SCH (09:03)
[2022-05-05] MEDS: AMIODARONE 200 MG TAB PO SCH (09:04)
[2022-05-05] MEDS: ESCITALOPRAM OXALATE 20 MG TAB PO SCH (09:04)
[2022-05-05] MEDS: MULTIVITAMIN TAB PO SCH (09:04)
[2022-05-05] MEDS: POLYETHYLENE (MIRALAX) 17 GM PACK PO SCH ×2 (09:29→20:03)
[2022-05-05 09:45] LABS: INR 2.3 (0.9-1.1); Prothrombin Time 23.8 Seconds (9.0-12.0)
[2022-05-05 09:48] LABS: Hemoglobin 11.4 g/dl (14.0-18.0); Mean Corpuscular Hemoglobin 30.7 pg (25.0-34.0); Mean Corpuscular Hgb Conc 33.5 g/dL (32.0-36.0); Mean Corpuscular Volume 91.6 fL (80.0-100.0); Mean Platelet Volume 9.5 fL (9.4-12.4); Platelet Count 283 K/uL (130-400); RDW Coefficient of Variation 14.6 % (11.5-14.5); RDW Standard Deviation 49.6 fL (36.4-46.3); Red Blood Count 3.71 M/uL (4.63-6.08); White Blood Count 5.77 K/ul (4.8-10.8)
[2022-05-05 10:02] LABS: BUN Creatinine Ratio 27.9 (10-20); Calcium 8.7 mg/dl (8.5-10.1); Creatinine Clr Calc Pharmacy 143.4 ml/min; Est GFR (African American) 121.5 ml/min; Est GFR (Non-African American) 104.8 ml/min; Potassium 4.1 mmol/L (3.5-5.1)
[2022-05-05] MEDS: ALBUTEROL HFA 8 GM INHALER INH PRN (10:04)
[2022-05-05] MEDS: CHOLECALCIFEROL 1,000 UNITS 25 MCG TAB PO SCH (10:27)
[2022-05-05] MEDS: HYDROCODONE/ACETAMOPHEN 5/325MG TAB PO PRN (11:55)
[2022-05-05] MEDS: WARFARIN SOD 2.5 MG TAB PO SCH (16:43)
[2022-05-05] MEDS ORDERED: PROCHLORPERAZINE MALEATE 10 MG TAB PO ONE (18:00)
[2022-05-05] MEDS ORDERED: diphenhydrAMINE Capsule 25 MG CAP PO ONE (18:00)
[2022-05-05] MEDS: traZODone HCL 100 MG TAB PO SCH (21:08)
--- NOTE | 2022-05-05 21:35 | Hospitalist Progress Note ---
Date of Service May 05, 2022 Assessment & Plan (1) Hematoma: Plan: left arm at site of previous thrombophlebitis causing pain but no associated signs or symptoms of infection of hematoma -elevate limb above heart -increase frequency of hydrocodone prn -warm compresses did not help -hgb stable-ok to continue warfarin with goal aim 2-3 S/p incision and drainage left arm on April [address] Woodruff, appreciate orthopedics ongoing management of this (2) Headache: Plan: Suspect combination of tension (neck pain on exam) and migraine headache (history of this). Suspect started after his operation due to head positioning during the surgery. Per prior neurology note triptans not being effective. He reports steroid pack is usually effective. Per previous neurology notes he gets a Medrol Dosepak. No significant improvement with medrol dosepak. No longer has IV access. Will give dexamethasone 10mg IM. If ongoing use lorazepam 0.5mg PO for neck spasm as prescribed. If lorazepam not effective will need to obtain IV access for further treatment such as Valproic acid / Compazine (will get EKG for up to date QTC in anticipation of this). Use warm compress / heating pad on left neck Patient appears to have a low pain threshold. Pateint will have spouse bring in Personal cert occupational therapy asst so he can use his pain medicine. Patient refusing discharge until his pain is better. LIkely this is related to his positioning. Recommended that he move around and sit in the chair. On 05/05, patient will be placed on compazine and benadryl and will see if this helps. Patient continues to have significant headache. (3) Orthostatic dizziness: Plan: Suspect his dizziness is mostly related to his migraine as above. CT head negative for intracranial pathology Will hold off restarting lasix given headache and reasonaly controlled BP given his ongoing pain (4) Chest pain: Plan: Resolved (5) Generalized weakness: Plan: 2/2 prolonged (17 day) recent hospital stay. He was ambulating 80 feet during that stay with PT and felt well enough to go home at the time But obviously was not doing as well as he thought he was once he returned home Patient now wishing to be discharged home. Physical therapy recommending 24/ care and patient to be on a single-story with home health to be set up. He has no specific medical needs that he requires to be in a usp although as we titrate his warfarin he would likely be better served at [facility]. (6) Constipation: Plan: with severe colonic ileus prior hospitalization, now moving bowels regularly -continue Miralax and senna/docusate bid (7) Chronic venous insufficiency: Plan: noted (8) Depression: Plan: stable Continue Lexapro, trazodone nightly (9) Hypothyroidism: Plan: TSH recently normal, continue Synthroid 100 mcg daily (10) Paroxysmal atrial fibrillation: Plan: last admission had new diagnosis of WESLEY. AV kayla agents caused significant hypotension and was started on amiodarone Sinus on admission and remains in regular rhythm on exam - Continue amiodarone 200mg daily Continue warfarin as below (11) Thoracic aortic aneurysm (TAA): Plan: Thoracic aortic aneurysm Continued outpatient surveillance, no acute change (12) Intractable back pain: Plan: Chronic back pain With postlaminectomy syndrome of lumbosacral region, with spinal cord stimulator in place with Dilaudid pump Follows with pain management - consulted this admission Continue pain pump Continue his usual hydrocodone and baclofen (13) Anemia: Plan: Hemoglobin 10.4 down from 13, blood loss suspect from hematoma should stabilize now hematoma was treated. No obvious bleeding anywhere else and just had EGD/colonoscopy last admission without bleeding Ferritin 83 on 04/16/2022, transferrin saturation 23% 04/16, normal serum iron and low TIBC suggestive of anemia of chronic disease B12 low normal at 323 last admission and folate normal With smudge cells but is leukopenic, no evidence of CLL on peripheral smear peripheral smear here interpreted as anemia of chronic disease (14) Venous thrombosis: Plan: Cephalic vein thrombosis - superficial venous thrombosis Clots occurred while on Eliquis last admission suggesting failure; patient was switched to warfarin after Lovenox bridge on prior discharge due to concern for recurrent clots and suspected hypercoagulable state - follow INR daily Lupus anticoagulant weak positive from previous admission--> recommend repeat testing in 12 weeks anti-phospholipid abs negative homocysteine level elevated at 14.4 and had low normal B12 previously -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 Diet - heart healthy Disposition - continued stay on med/surg, PT/OT recommending rehab Admission and Anticipated Discharge Date Admission Date: April 25, 2022 Subjective 66 yo male reports doing well. He continues to have a headache however. Review of Systems Review of Systems: All systems reviewed & are unremarkable except as noted in HPI & below Physical Exam Constitutional: WD/WN, vitals as above Eyes: + anicteric sclerae Neck: trachea midline, no thyromegaly Respiratory: normal respiratory effort, lungs clear to auscultation (except diminished BS at bases bilat) Cardiovascular: Rate/Rhythm: regular rate and regular rhythm Heart Sounds: no murmur Extremities: + edema (1+ woody edema legs bilat,left forearm 1+) Gastrointestinal (Abdomen): normal bowel sounds, soft, nontender, no hepatosplenomegaly Musculoskeletal: Extremities: + extremities abnormal to inspection (LUE as above, left arm is wrapped), no cyanosis and no clubbing Skin: no rashes, warm and dry + rash (purplish discoloration legs,chronic venous stasis changes bilat) Neurologic: moves all extremities and awake; no focal motor deficits Psychiatric: A+Ox3, euthymic affect Results & Data Results & Data ([facility]) Vital Signs (Past 12 Hours) Vital Signs Temp Pulse Resp BP Pulse Ox O2 Del Method 05/05/22 15:51 36.5 C 68 16 134/73 95 Room Air PG Care Time/CCT Total # of Minutes Spent Total Time Spent with Patient: Total time spent is greater than 50% in coordination of care (as documented) at patient's floor/unit and/or counseling patient: Coding Level of Care Code 81647 Subseq Hosp Care Lvl 2 Diagnoses Hematoma T14.8XXA Headache R51.9 Orthostatic dizziness R42 Chest pain R07.9 Chest pain type: unspecified Generalized weakness R53.1 Constipation K59.00 Chronic venous insufficiency I87.2 Depression F32.9 Hypothyroidism E03.9 Paroxysmal atrial fibrillation I48.0 Thoracic aortic aneurysm (TAA) I71.20 Intractable back pain M54.9 Anemia D64.9 Venous thrombosis I82.90 GERD (gastroesophageal reflux disease) K21.9 Complex sleep apnea syndrome G47.31 Time Spent (min) 25 (1) Chest pain Chest pain type: unspecified Qualified Code(s): R07.9 - Chest pain, unspecified
[2022-05-06] MEDS: ONDANSETRON 4 MG OD TAB PO PRN (04:43)
[2022-05-06] MEDS: LEVOTHYROXINE SODIUM 100 MCG TABLET PO SCH (05:47)
[2022-05-06] MEDS: HYDROCODONE/ACETAMOPHEN 5/325MG TAB PO PRN ×3 (05:52→19:58)
[2022-05-06 06:51] LABS: INR 2.1 (0.9-1.1); Prothrombin Time 21.5 Seconds (9.0-12.0)
[2022-05-06] MEDS: ALBUTEROL HFA 8 GM INHALER INH PRN (07:22)
[2022-05-06] MEDS: LIDOCAINE 5% 1 PATCH TD SCH (08:27)
[2022-05-06] MEDS: DOCUSATE SODIUM/SENNA 50/8.6MG TAB PO SCH ×2 (08:28→20:02)
[2022-05-06] MEDS: PANTOprazole 40 MG TAB PO SCH ×2 (08:28→20:02)
[2022-05-06] MEDS: POLYETHYLENE (MIRALAX) 17 GM PACK PO SCH ×2 (08:28→20:03)
[2022-05-06] MEDS: BACLOFEN 10 MG TAB PO SCH ×3 (08:28→20:02)
[2022-05-06] MEDS: methylPREDNISolone 4 MG TAB PO SCH ×2 (08:28→20:01)
[2022-05-06] MEDS: CHOLECALCIFEROL 1,000 UNITS 25 MCG TAB PO SCH (08:28)
[2022-05-06] MEDS: ESCITALOPRAM OXALATE 20 MG TAB PO SCH (08:29)
[2022-05-06] MEDS: FLUTICASONE/VILANTEROL 200/25MCG 14 PUFFS/INHALER INH SCH (08:29)
[2022-05-06] MEDS: CYANOCOBALAMIN (B-12) 500 MCG TABLET PO SCH (08:29)
[2022-05-06] MEDS: AMIODARONE 200 MG TAB PO SCH (08:29)
[2022-05-06] MEDS: DICLOFENAC SOD 1% GEL 100 GM TUBE EXT SCH ×4 (08:30→20:03)
[2022-05-06] MEDS: MULTIVITAMIN TAB PO SCH (08:30)
[2022-05-06] MEDS: WARFARIN SOD 2.5 MG TAB PO SCH (15:03)
[2022-05-06] MEDS: traZODone HCL 100 MG TAB PO SCH (20:01)
--- NOTE | 2022-05-06 23:27 | Hospitalist Progress Note ---
Date of Service May 06, 2022 Assessment & Plan (1) Hematoma: Plan: left arm at site of previous thrombophlebitis causing pain but no associated signs or symptoms of infection of hematoma -elevate limb above heart -increase frequency of hydrocodone prn -warm compresses did not help -hgb stable-ok to continue warfarin with goal aim 2-3 S/p incision and drainage left arm on April [address] Woodruff, appreciate orthopedics ongoing management of this (2) Headache: Plan: Suspect combination of tension (neck pain on exam) and migraine headache (history of this). Suspect started after his operation due to head positioning during the surgery. Per prior neurology note triptans not being effective. He reports steroid pack is usually effective. Per previous neurology notes he gets a Medrol Dosepak. No significant improvement with medrol dosepak. No longer has IV access. Will give dexamethasone 10mg IM. If ongoing use lorazepam 0.5mg PO for neck spasm as prescribed. If lorazepam not effective will need to obtain IV access for further treatment such as Valproic acid / Compazine (will get EKG for up to date QTC in anticipation of this). Use warm compress / heating pad on left neck Patient appears to have a low pain threshold. Pateint will have spouse bring in Personal manipulative therapy specialist so he can use his pain medicine. Patient refusing discharge until his pain is better. LIkely this is related to his positioning. Recommended that he move around and sit in the chair. On 05/06, compazine and benadryl did not help Patient continues to have significant headache. will consult neurology. due to his thrombosis, and bleeding earlier in hospital stay, patient does not have any IV access. continues to use his personal staff physical therapy assistant. (3) Orthostatic dizziness: Plan: Suspect his dizziness is mostly related to his migraine as above. CT head negative for intracranial pathology Will hold off restarting lasix given headache and reasonaly controlled BP given his ongoing pain (4) Chest pain: Plan: Resolved (5) Generalized weakness: Plan: 2/2 prolonged (17 day) recent hospital stay. He was ambulating 80 feet during that stay with PT and felt well enough to go home at the time But obviously was not doing as well as he thought he was once he returned home Patient now wishing to be discharged home. Physical therapy recommending 25/12 care and patient to be on a single-story with home health to be set up. He has no specific medical needs that he requires to be in a fpc although as we titrate his warfarin he would likely be better served at [facility]. (6) Constipation: Plan: with severe colonic ileus prior hospitalization, now moving bowels regularly -continue Miralax and senna/docusate bid (7) Chronic venous insufficiency: Plan: noted (8) Depression: Plan: stable Continue Lexapro, trazodone nightly (9) Hypothyroidism: Plan: TSH recently normal, continue Synthroid 100 mcg daily (10) Paroxysmal atrial fibrillation: Plan: last admission had new diagnosis of WESLEY. AV kayla agents caused significant hyp otension and was started on amiodarone Sinus on admission and remains in regular rhythm on exam - Continue amiodarone 200mg daily Continue warfarin as below (11) Thoracic aortic aneurysm (TAA): Plan: Thoracic aortic aneurysm Continued outpatient surveillance, no acute change (12) Intractable back pain: Plan: Chronic back pain With postlaminectomy syndrome of lumbosacral region, with spinal cord stimulator in place with Dilaudid pump Follows with pain management - consulted this admission Continue pain pump Continue his usual hydrocodone and baclofen (13) Anemia: Plan: Hemoglobin 10.4 down from 13, blood loss suspect from hematoma should stabilize now hematoma was treated. No obvious bleeding anywhere else and just had EGD/colonoscopy last admission without bleeding Ferritin 83 on 04/16/2022, transferrin saturation 23% 04/16, normal serum iron and low TIBC suggestive of anemia of chronic disease B12 low normal at 323 last admission and folate normal With smudge cells but is leukopenic, no evidence of CLL on peripheral smear peripheral smear here interpreted as anemia of chronic disease (14) Venous thrombosis: Plan: Cephalic vein thrombosis - superficial venous thrombosis Clots occurred while on Eliquis last admission suggesting failure; patient was switched to warfarin after Lovenox bridge on prior discharge due to concern for recurrent clots and suspected hypercoagulable state - follow INR daily Lupus anticoagulant weak positive from previous admission--> recommend repeat testing in 12 weeks anti-phospholipid abs negative homocysteine level elevated at 14.4 and had low normal B12 previously -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 Diet - heart healthy Disposition - continued stay on med/surg, PT/OT recommending rehab Admission and Anticipated Discharge Date Admission Date: April 25, 2022 Subjective 66 yo male continues to be in pain for his headache. Requesting to be seen by his neurologist. Review of Systems Review of Systems: All systems reviewed & are unremarkable except as noted in HPI & below Physical Exam Constitutional: WD/WN, vitals as above Eyes: + anicteric sclerae Neck: trachea midline, no thyromegaly Respiratory: normal respiratory effort, lungs clear to auscultation (except diminished BS at bases bilat) Cardiovascular: Rate/Rhythm: regular rate and regular rhythm Heart Sounds: no murmur Extremities: + edema (1+ woody edema legs bilat,left forearm 1+) Gastrointestinal (Abdomen): normal bowel sounds, soft, nontender, no hepatosplenomegaly Musculoskeletal: Extremities: + extremities abnormal to inspection (LUE as above, left arm is wrapped), no cyanosis and no clubbing Skin: no rashes, warm and dry + rash (purplish discoloration legs,chronic venous stasis changes bilat) Neurologic: moves all extremities and awake; no focal motor deficits Psychiatric: A+Ox3, euthymic affect Results & Data Results & Data ([facility]) Vital Signs (Past 12 Hours) Vital Signs Temp Pulse Resp BP Pulse Ox O2 Del Method 05/06/22 19:56 36.5 C 68 18 147/76 H 95 Room Air 05/06/22 15:36 36.4 C L 75 16 146/72 H 94 Room Air PG Care Time/CCT Total # of Minutes Spent Total Time Spent with Patient: Total time spent is greater than 50% in coordination of care (as documented) at patient's floor/unit and/or counseling patient: Coding Level of Care Code 17146 Subseq Hosp Care Lvl 2 Diagnoses Hematoma T14.8XXA Headache R51.9 Orthostatic dizziness R42 Chest pain R07.9 Chest pain type: unspecified Generalized weakness R53.1 Constipation K59.00 Chronic venous insufficiency I87.2 Depression F32.9 Hypothyroidism E03.9 Paroxysmal atrial fibrillation I48.0 Thoracic aortic aneurysm (TAA) I71.20 Intractable back pain M54.9 Anemia D64.9 Venous thrombosis I82.90 GERD (gastroesophageal reflux disease) K21.9 Complex sleep apnea syndrome G47.31 (1) Chest pain Chest pain type: unspecified Qualified Code(s): R07.9 - Chest pain, unspecified
[2022-05-07] MEDS: ONDANSETRON 4 MG OD TAB PO PRN (02:52)
[2022-05-07] MEDS: HYDROCODONE/ACETAMOPHEN 5/325MG TAB PO PRN ×2 (03:13→11:09)
[2022-05-07] MEDS: LEVOTHYROXINE SODIUM 100 MCG TABLET PO SCH (06:19)
[2022-05-07] MEDS ORDERED: methylPREDNISolone 4 MG TAB PO SCH (07:00)
[2022-05-07] MEDS: ALBUTEROL HFA 8 GM INHALER INH PRN ×2 (07:54→16:16)
[2022-05-07 08:50] LABS: Hematocrit (blood only) 30.5 % (40.1-51.0); Hemoglobin 10.1 g/dl (14.0-18.0); Mean Corpuscular Hgb Conc 33.1 g/dL (32.0-36.0); Mean Corpuscular Volume 93.6 fL (80.0-100.0); Mean Platelet Volume 9.4 fL (9.4-12.4); Platelet Count 247 K/uL (130-400); RDW Coefficient of Variation 14.9 % (11.5-14.5); RDW Standard Deviation 51.3 fL (36.4-46.3); Red Blood Count 3.26 M/uL (4.63-6.08); White Blood Count 4.05 K/ul (4.8-10.8)
[2022-05-07 09:04] LABS: INR 1.8 (0.9-1.1); Prothrombin Time 18.4 Seconds (9.0-12.0)
[2022-05-07] MEDS: DICLOFENAC SOD 1% GEL 100 GM TUBE EXT SCH ×5 (09:06→20:52)
[2022-05-07] MEDS: AMIODARONE 200 MG TAB PO SCH (09:07)
[2022-05-07] MEDS: BACLOFEN 10 MG TAB PO SCH ×3 (09:07→20:45)
[2022-05-07] MEDS: POLYETHYLENE (MIRALAX) 17 GM PACK PO SCH ×2 (09:07→20:45)
[2022-05-07] MEDS: LIDOCAINE 5% 1 PATCH TD SCH (09:07)
[2022-05-07] MEDS: ESCITALOPRAM OXALATE 20 MG TAB PO SCH (09:08)
[2022-05-07] MEDS: CYANOCOBALAMIN (B-12) 500 MCG TABLET PO SCH (09:08)
[2022-05-07] MEDS: MULTIVITAMIN TAB PO SCH (09:08)
[2022-05-07] MEDS: DOCUSATE SODIUM/SENNA 50/8.6MG TAB PO SCH ×2 (09:08→20:45)
[2022-05-07] MEDS: PANTOprazole 40 MG TAB PO SCH ×2 (09:08→20:44)
[2022-05-07] MEDS: CHOLECALCIFEROL 1,000 UNITS 25 MCG TAB PO SCH (09:08)
[2022-05-07] MEDS: FLUTICASONE/VILANTEROL 200/25MCG 14 PUFFS/INHALER INH SCH (09:09)
[2022-05-07 09:31] LABS: BUN Creatinine Ratio 30.8 (10-20); Calcium 8.4 mg/dl (8.5-10.1); Creatinine Clr Calc Pharmacy 168.3 ml/min; Est GFR (African American) 129.7 ml/min; Est GFR (Non-African American) 111.9 ml/min; Potassium 4.5 mmol/L (3.5-5.1)
--- NOTE | 2022-05-07 11:07 | Neurology Consultation ---
Date of Consultation May 07, 2022 Assessment & Plan (1) Headache: Plan Refractory headache following surgical treatment, I&D, for a left elbow hematoma, on April 28. Although patient does have a history of episodic migraine, he does not really endorse significant migrainous features such as nausea or light or sound sensitivity at this time. In fact, he had just eaten a full breakfast. He did endorse some nonphysiologic symptoms including double vision and triple vision that did not improve with closing either eye as well as complete hearing loss that was not evident on examination or in carrying on a casual conversation with him at normal volume. Although I agree that he is more likely than not experiencing some residual headache and associated cervicalgia that may be related to positioning factors in the context of his recent surgical treatment, he does not appear to be in significant distress this morning, and again, did endorse some nonphysiologic symptoms. I see that he has been refusing discharge until his pain is improved. Because this patient does have a history of episodic migraine and he complains of a persistent headache that has been refractory to treatment thus far including a trial of corticosteroids, I think it would be reasonable to try additional headache treatment directed at refractory migraine. I would recommend Depakote IV 750 mg daily and olanzapine 5 mg daily. These medications may be continued for the next 1 to 3 days depending on clinical response. I would not give additional corticosteroids. Would also consider obtaining a repeat, up-to-date, noncontrast CT of the head. He is unable to have MRI due to presence of intrathecal pain pump. If his vision and hearing symptoms persist, I would recommend additional evaluations with ophthalmology and ENT. History of Present Illness Reason for Consultation: headache Requesting Physician: Nicholas Crowell Attending Physician: Nicholas Crowell History of Present Illness The patient is a 66-year-old male who is known to me, I last saw him in the outpatient neurology clinic August 17, 2021 for ongoing management of migraines and insomnia. He typically experiences 1-2 migrainous episodes per month, frontal location, throbbing quality, associated nausea and light sensitivity. Triptans have not been helpful. He has responded previously to corticosteroids for acute migraine treatment. I had also discussed a potential trial of a CGRP felicita such as Ubrelvy or Nurtec ODT. Further, I have been prescribing him trazodone which has been helpful for his insomnia. History also notable for chronic pain/postlaminectomy syndrome, intrathecal pain pump for which he follows at the [facility] pain clinic. He had presented to the emergency department on April 23 for chest pain. He was subsequently admitted for management of several issues, shortness of breath, chest pain, chronic back pain. He was seen by orthopedics for a left elbow hematoma for which he underwent incision and drainage on April 28. The patient reports that ever since undergoing the surgical procedure, he has been suffering from a refractory headache with some associated neck pain. He denies significant migrainous symptoms such as nausea or light or sound sensitivity. He had eaten a full breakfast this morning. He complained of persistent head and neck pain as above. He also had some somewhat nonspecific, vague complaints such as double vision, triple vision, not improving with closing either eye, then indicated that he could not hear at all with 1 or both ears, nonlocalizing, and he was able to carry on a conversation with me with normal volume levels. He reports that his chronic back pain has been stable. He denied any new motor or sensory symptoms for the limbs. No change in speech or swallowing function. He was given a Medrol Dosepak recently for his refractory headache. Unfortunately, this medication was not helpful. It looks like he was then given 10 mg of dexamethasone IV. He is also been seen by pain management in the cont ext of this current hospitalization. Trigger point injections to address his headache were not recommended in light of his recent surgery. Recommendation was to try corticosteroids as above as well as to continue with baclofen and Voltaren gel to the neck. Patient's persistent headache has been felt to be multifactorial, related to cervicogenic factors and occurring in the context of episodic migraine, potentially aggravated or triggered by recent surgical treatment for left upper limb hematoma with associated surgical positioning factors. I did independently review the CT of the head completed May 01, 2022 in the context of patient's current headache. No evidence of hemorrhage or acute process. No hydrocephalus. The study is mildly compromised by motion artifact. There is an incidental frontal falcine calcification. There is no obvious subdural collection/hematoma. Patient is unable to have an MRI due to his intrathecal pain pump. Allergies Allergy/AdvReac Type Severity Reaction Status Date / Time Penicillins Allergy Unknown Rash Verified 04/23/22 15:38 sumatriptan [From Imitrex] Allergy Rash Verified 04/23/22 15:38 Home Medications Medication Instructions Recorded Confirmed Type multivitamin 1 tab PO DAILY 05/17/18 04/23/22 History cholecalciferol (vitamin D3) 25 1,000 unit PO DAILY 01/28/19 04/23/22 History mcg (1,000 unit) tablet furosemide 40 mg tablet 40 mg PO DAILY #90 tabs 05/24/21 04/23/22 Rx naloxone 4 mg/actuation nasal 4 mg intranasal Q2M PRN opioid 07/21/21 04/23/22 Rx spray (Narcan) overdose #2 ea albuterol sulfate 90 mcg/actuation 2 puff inhalation Q6H PRN 09/29/21 04/23/22 History aerosol inhaler (ProAir HFA) Shortness Of Breath fluticasone 500 mcg-salmeterol 50 1 inh inhalation BID 09/29/21 04/23/22 History mcg/dose blistr powdr for inhalation (Wixela Inhub) baclofen 10 mg tablet 10 mg PO TID #30 tabs 10/27/21 04/23/22 Rx trazodone 50 mg tablet 100 mg PO HS 90 days #180 tabs 01/26/22 04/23/22 Rx escitalopram oxalate 20 mg tablet 20 mg PO DAILY 02/02/22 04/23/22 History (Lexapro) hydrocodone 5 mg-acetaminophen 325 1 tab PO BID PRN break through 02/02/22 04/23/22 Rx mg tablet pain #60 tabs levothyroxine 100 mcg tablet 100 mcg PO QAM #90 tabs 02/20/22 04/23/22 Rx amiodarone 200 mg tablet 200 mg PO DAILY #30 tabs 04/18/22 04/23/22 Rx cyanocobalamin (vitamin B-12) 1,000 mcg PO DAILY #30 caps 04/18/22 04/23/22 Rx 1,000 mcg capsule pantoprazole 40 mg tablet,delayed 40 mg PO BID #60 tabs 04/18/22 04/23/22 Rx release polyethylene glycol 3350 8.5 gram 17 gm PO BID #72 ea 04/18/22 04/23/22 Rx oral powder packet sennosides 8.6 mg-docusate sodium 1 tab PO BID #60 tabs 04/18/22 04/23/22 Rx 50 mg tablet (Senokot-S) warfarin 5 mg tablet 5 mg PO DAILY@1600 #30 tabs 04/18/22 04/23/22 Rx Patient History Medical History Acute thrombosis of cephalic vein Anemia Chronic venous stasis dermatitis Complex sleep apnea syndrome Constipation Depression HILTON (dyspnea on exertion) GERD (gastroesophageal reflux disease) History of broken collarbone Hypertension Hypothyroidism Kyphoscoliosis terminologist current use of anticoagulants with INR goal of 2.0-3.0 Lower extremity venous stasis Lumbar stenosis Osteoporosis Paroxysmal atrial fibrillation Pneumonia Postlaminectomy syndrome of lumbosacral region Presence of intrathecal pump Sacroiliitis Testicular hernia history of Thoracic aortic aneurysm (TAA) dilation of the ascending thoracic aorta measures up to 4.5 cm at the level of the main pulmonary artery Venous thrombosis Surgical History Encounter for post-sterilization vasoplasty History of appendectomy Previous back surgery S/P hernia repair Family History Mother Colitis Brother Colitis Hypertension Sister Hypertension Father Hypertension Prostate cancer Myocardial infarction Denies family history of Ovarian cancer Coronary heart disease Breast cancer Colorectal cancer Social History Smoking Status: Never smoker Second Hand Exposure: No; Hx Alcohol Use: No Hx Substance Use: No Preferred Language: Georgian Communication Ability: Effective Visual Impairment: Limited Hearing Ability: Normal Lathe Puller Required: No Beliefs That Will Affect Care: None marital status: Current Living Situation: Spouse and Family current occupational status: disabled Feels Safe at Home: Yes Childhood Exposure to Second-Hand Smoke: No caffeine: Yes Dental Care, Regularly: Yes Physical Activity Frequency: Daily Seatbelt Use: always Sunscreen Use: Yes Assistive Devices: Cane, Scooter/Electric Scooter and Walker Review of Systems Review of Systems: All systems reviewed & are unremarkable except as noted in Subjective Exam (Neuro) Constitutional: well developed; no acute distress Eyes: normal visual agustin by confrontation, PERRL and EOM intact bilaterally; no fundoscopic abnormality and no papilledema ENMT: Ears: no hearing impairment and no TM abnormality Cardiovascular: Vessels: normal carotid upstroke; no carotid bruit Neurologic: Oriented to:: Person, Place and Time Memory: Short Term Intact and Remote Intact Attention: Span Intact and Concentration Intact Language: Naming Objects and Repeating Phrases Speech Fluency: negative Dysarthria or Dysfluency Speech Aphasia: negative Aphasia Fund of Knowledge: Current Events, Past History and Vocabulary Cranial Nerves: Normal II, III, IV, , V, VII, VIII, IX, X, XI and XII Motor Strength: Normal Lower Extremities and Normal Upper Extremities Motor Tone: Normal Lower Extremities and Normal Upper Extremities Muscle Bulk/Involuntary Movements: No Involuntary Movements; negative Muscle Atrophy Sensation: Light Touch Intact, Pain/Temperature Intact, Vibration Intact and Proprioception Intact Coordination: Normal Deep Tendon Reflexes: Rt Triceps: 2+, Lt Triceps: 2+, Rt Biceps: 2+, Lt Biceps: 2+, Rt Brachioradialis: 2+, Lt Brachioradialis: 2+, Rt Patellar: 2+, Lt Patellar: 2+, Rt Ankle: 1+ and Lt Ankle: 1+ Special Tests: negative Babinski Present Details: Gait cannot be tested in the context of patient's current neurological status. Results & Data ([facility]) Vital Signs (Past 12 Hours) Vital Signs Pulse Resp Pulse Ox O2 Del Method 05/07/22 07:55 53 L 18 96 Room Air Laboratory Results WBC 4.05, hemoglobin 10.1, hematocrit 30.5, platelet count 247, sodium 137, potassium 4.5, BUN 16, creatinine 0.52, glucose [address] of the head is as described in the history of present illness, I independently reviewed these images. An electrocardiogram completed May 03, 2022 revealed a normal sinus rhythm, right bundle branch block. Coding Level of Care Code 91784 Initial Inpt Care Lvl 3 Diagnoses Headache R51.9
[2022-05-07] MEDS: DIVALPROEX EXTENDED RELEASE 500 MG TAB PO SCH ×2 (16:53→20:43)
[2022-05-07] MEDS: WARFARIN SOD 2.5 MG TAB PO SCH (16:53)
[2022-05-07] MEDS: OLANZapine 5 MG TABLET PO SCH (20:43)
[2022-05-07] MEDS: traZODone HCL 100 MG TAB PO SCH (20:45)
--- NOTE | 2022-05-07 21:36 | Hospitalist Progress Note ---
Date of Service May 07, 2022 Assessment & Plan (1) Hematoma: Plan: left arm at site of previous thrombophlebitis causing pain but no associated signs or symptoms of infection of hematoma -elevate limb above heart -increase frequency of hydrocodone prn -warm compresses did not help -hgb stable-ok to continue warfarin with goal aim 2-3 S/p incision and drainage left arm on April [address] Woodruff, appreciate orthopedics ongoing management of this (2) Headache: Plan: Suspect combination of tension (neck pain on exam) and migraine headache (history of this). Suspect started after his operation due to head positioning during the surgery. Per prior neurology note triptans not being effective. He reports steroid pack is usually effective. Per previous neurology notes he gets a Medrol Dosepak. No significant improvement with medrol dosepak. No longer has IV access. Will give dexamethasone 10mg IM. If ongoing use lorazepam 0.5mg PO for neck spasm as prescribed. If lorazepam not effective will need to obtain IV access for further treatment such as Valproic acid / Compazine (will get EKG for up to date QTC in anticipation of this). Use warm compress / heating pad on left neck Patient appears to have a low pain threshold. Pateint will have spouse bring in Personal credit card clerk so he can use his pain medicine. Patient refusing discharge until his pain is better. LIkely this is related to his positioning. Recommended that he move around and sit in the chair. On 05/07 compazine and benadryl did not help Patient continues to have significant headache. will consult neurology. due to his thrombosis, and bleeding earlier in hospital stay, patient does not have any IV access. continues to use his personal digital communications manager. placed on divalproex and olanzapine amador monitor improvement (3) Orthostatic dizziness: Plan: Suspect his dizziness is mostly related to his migraine as above. CT head negative for intracranial pathology Will hold off restarting lasix given headache and reasonaly controlled BP given his ongoing pain (4) Chest pain: Plan: Resolved (5) Generalized weakness: Plan: 2/2 prolonged (17 day) recent hospital stay. He was ambulating 80 feet during that stay with PT and felt well enough to go home at the time But obviously was not doing as well as he thought he was once he returned home Patient now wishing to be discharged home. Physical therapy recommending 25/12 care and patient to be on a single-story with home health to be set up. He has no specific medical needs that he requires to be in a usp although as we titrate his warfarin he would likely be better served at [facility]. (6) Constipation: Plan: with severe colonic ileus prior hospitalization, now moving bowels regularly -continue Miralax and senna/docusate bid (7) Chronic venous insufficiency: Plan: noted (8) Depression: Plan: stable Continue Lexapro, trazodone nightly (9) Hypothyroidism: Plan: TSH recently normal, continue Synthroid 100 mcg daily (10) Paroxysmal atrial fibrillation: Plan: last admission had new diagnosis of WESLEY. AV kayla agents caused significant hypotension and was started on amiodarone Sinus on admission and remains in regular rhythm on exam - Continue amiodarone 200mg daily Continue warfarin as below (11) Thoracic aortic aneurysm (TAA): Plan: Thoracic aortic aneurysm Continued outpatient surveillance, no acute change (12) Intractable back pain: Plan: Chronic back pain With postlaminectomy syndrome of lumbosacral region, with spinal cord stimulator in place with Dilaudid pump Follows with pain management - consulted this admission Continue pain pump Continue his usual hydrocodone and baclofen (13) Anemia: Plan: Hemoglobin 10.4 down from 13, blood loss suspect from hematoma should stabilize now hematoma was treated. No obvious bleeding anywhere else and just had EGD/colonoscopy last admission without bleeding Ferritin 83 on 04/16/2022, transferrin saturation 23% 04/16, normal serum iron and low TIBC suggestive of anemia of chronic disease B12 low normal at 323 last admission and folate normal With smudge cells but is leukopenic, no evidence of CLL on peripheral smear peripheral smear here interpreted as anemia of chronic disease (14) Venous thrombosis: Plan: Cephalic vein thrombosis - superficial venous thrombosis Clots occurred while on Eliquis last admission suggesting failure; patient was switched to warfarin after Lovenox bridge on prior discharge due to concern for recurrent clots and suspected hypercoagulable state - follow INR daily Lupus anticoagulant weak positive from previous admission--> recommend repeat testing in 12 weeks anti-phospholipid abs negative homocysteine level elevated at 14.4 and had low normal B12 previously -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 Diet - heart healthy Disposition - continued stay on med/surg, PT/OT recommending rehab Admission and Anticipated Discharge Date Admission Date: April 25, 2022 Subjective Patient reports pain of his headache is still excrutiating. Review of Systems Review of Systems: All systems reviewed & are unremarkable except as noted in HPI & below Physical Exam 2 Constitutional: WD/WN, vitals as above Eyes: + anicteric sclerae Neck: trachea midline, no thyromegaly Respiratory: normal respiratory effort, lungs clear to auscultation (except diminished BS at bases bilat) Cardiovascular: Rate/Rhythm: regular rate and regular rhythm Heart Sounds: no murmur Extremities: + edema (1+ woody edema legs bilat,left forearm 1+) Gastrointestinal (Abdomen): normal bowel sounds, soft, nontender, no hepatosplenomegaly Musculoskeletal: Extremities: + extremities abnormal to inspection (LUE as above, left arm is wrapped), no cyanosis and no clubbing Skin: no rashes, warm and dry + rash (purplish discoloration legs,chronic venous stasis changes bilat) Neurologic: moves all extremities and awake; no focal motor deficits Psychiatric: A+Ox3, euthymic affect Results & Data Results & Data ([facility]) Vital Signs (Past 12 Hours) Vital Signs Temp Pulse Pulse Resp BP Pulse Ox O2 Del Method 05/07/22 16:30 Room Air 05/07/22 16:17 71 26 H 96 Room Air 05/07/22 15:50 24 96 Room Air 05/07/22 15:50 Room Air 05/07/22 15:01 36.6 C 72 16 159/74 H 95 Room Air PG Care Time/CCT Total # of Minutes Spent Total Time Spent with Patient: Total time spent is greater than 50% in coordination of care (as documented) at patient's floor/unit and/or counseling patient: Coding Level of Care Code 58800 Subseq Hosp Care Lvl 2 Diagnoses Hematoma T14.8XXA Headache R51.9 Orthostatic dizziness R42 Chest pain R07.9 Chest pain type: unspecified Generalized weakness R53.1 Constipation K59.00 Chronic venous insufficiency I87.2 Depression F32.9 Hypothyroidism E03.9 Paroxysmal atrial fibrillation I48.0 Thoracic aortic aneurysm (TAA) I71.20 Intractable back pain M54.9 Anemia D64.9 Venous thrombosis I82.90 GERD (gastroesophageal reflux disease) K21.9 Complex sleep apnea syndrome G47.31 (1) Chest pain Chest pain type: unspecified Qualified Code(s): R07.9 - Chest pain, unspecified
[2022-05-08] MEDS: LEVOTHYROXINE SODIUM 100 MCG TABLET PO SCH (06:14)
[2022-05-08] MEDS: ONDANSETRON 4 MG OD TAB PO PRN ×2 (06:48→11:32)
[2022-05-08 08:06] LABS: Creatinine Clr Calc Pharmacy 143.4 ml/min; Est GFR (African American) 121.5 ml/min; Est GFR (Non-African American) 104.8 ml/min
[2022-05-08 08:16] LABS: INR 1.7 (0.9-1.1); Prothrombin Time 17.7 Seconds (9.0-12.0)
[2022-05-08] MEDS: CYANOCOBALAMIN (B-12) 500 MCG TABLET PO SCH (08:45)
[2022-05-08] MEDS: CHOLECALCIFEROL 1,000 UNITS 25 MCG TAB PO SCH (08:45)
[2022-05-08] MEDS: BACLOFEN 10 MG TAB PO SCH ×3 (08:45→20:34)
[2022-05-08] MEDS: DIVALPROEX EXTENDED RELEASE 500 MG TAB PO SCH ×2 (08:46→20:35)
[2022-05-08] MEDS: DICLOFENAC SOD 1% GEL 100 GM TUBE EXT SCH ×4 (08:46→20:45)
[2022-05-08] MEDS: ESCITALOPRAM OXALATE 20 MG TAB PO SCH (08:47)
[2022-05-08] MEDS: AMIODARONE 200 MG TAB PO SCH (08:47)
[2022-05-08] MEDS: DOCUSATE SODIUM/SENNA 50/8.6MG TAB PO SCH ×2 (08:47→20:34)
[2022-05-08] MEDS: PANTOprazole 40 MG TAB PO SCH ×2 (08:48→20:34)
[2022-05-08] MEDS: MULTIVITAMIN TAB PO SCH (08:48)
[2022-05-08] MEDS: FLUTICASONE/VILANTEROL 200/25MCG 14 PUFFS/INHALER INH SCH (08:48)
[2022-05-08] MEDS: POLYETHYLENE (MIRALAX) 17 GM PACK PO SCH ×2 (08:49→20:34)
[2022-05-08] MEDS: LIDOCAINE 5% 1 PATCH TD SCH (08:50)
[2022-05-08] MEDS: ALBUTEROL HFA 8 GM INHALER INH PRN ×2 (09:49→22:24)
--- NOTE | 2022-05-08 10:37 | Neurology Progress Note ---
Date of Service May 08, 2022 Assessment & Plan (1) Headache: Plan This patient has a history of migraine headaches but has a new, acute, severe headache different from his typical migraines. It is very left-sided and he is tender in the neck. I also note the hearing loss on the left with no other focal neurologic deficits on examination. CT scan of the head several days ago was unremarkable. Unfortunately we cannot get an MRI due to his pain pump implantation. I cannot exclude a vertebral artery dissection causing his pain and symptoms.Otherwise, this is a migraine variant which is refractory to steroids which typically helps his headaches. He has tried Triptans in the past which have not been helpful. Recommendations: 1. Repeat CT scan of the head with CT angiography of the head and neck and a CT of the cervical spine. 2. consider stronger pain medicine , such as could tore a lock or even judicious doses of narcotics. 3. I will follow. Overall, I spent a total 35 minutes with this case including review of records, review of CT films, direct evaluation the patient at bedside, and discussion of the case with patient and RN at bedside, and Dr. Crowell, including differential diagnosis and treatment options. Admission and Anticipated Discharge Date Admission Date: April 25, 2022 Subjective the patient continues to have significant headache pain that he grades as "10/10". It is a severe throbbing aching pain along the left side of his face and head and down the left side of his neck. He has nausea without vomiting and he has significant photophobia. Patient has a history of migraine headaches and is followed closely by Dr. Thompson over time, but the patient believes this ped pain is completely different compared to his previous migraines. In addition, the patient has hearing loss on the left which is new over the last day or so. Laboratory studies reveal anemia. The patient cannot get an MRI of the brain due to a pain pump that is implanted. Results & Data ([facility]) Vital Signs (Past 12 Hours) Vital Signs Temp Pulse Resp BP Pulse Ox O2 Del Method 05/08/22 09:49 18 96 Room Air 05/08/22 07:33 36.5 C 59 L 16 143/71 H 95 Room Air Exam (Neuro) Physical Exam: He is awake and alert. Speech is without obvious a facial dysarthria. Mood is reasonable and affect is appropriate. He seems in pain and does not want to move his head her neck and avoids the bright light. Extraocular eye muscles are intact without nystagmus. There is no facial droop or other facial motor asymmetry. Tongue is midline. Neck is supple and he can move in all directions but he is tender in the left side and paraspinal muscles compared to the right. Coordination is normal in the arms without tremor or ataxia. Strength seems 5/5 diffusely in all major muscle groups in the arms and legs both proximally distally with good tone and no atrophy. Reflexes are 1/4 in all 4 limbs. PG Care Time/CCT Total # of Minutes Spent Total Time Spent with Patient: Total time spent is greater than 50% in coordination of care (as documented) at patient's floor/unit and/or counseling patient: Coding Level of Care Code 74397 Subseq Hosp Care Lvl 3 Diagnoses Headache R51.9 Time Spent (min) 35
[2022-05-08] MEDS: WARFARIN SOD 2.5 MG TAB PO SCH (17:32)
--- NOTE | 2022-05-08 17:40 | Ultrasound Report ---
BILATERAL CAROTID DOPPLER STUDY HISTORY: headache/ checking for vertebral artery dissection COMPARISON: None. TECHNIQUE: Real-time, grayscale, and color Doppler sonography of the carotid arteries was performed. Imaging reviewed in the transverse and longitudinal planes. All measurements were calculated based on NASCET criteria. FINDINGS: Antegrade flow is seen in the bilateral vertebral arteries. No significant atherosclerotic plaque within the carotid or vertebral arteries. The right external ju gular vein is completely thrombosed. The peak systolic velocity within the right ICA is 98 cm/s. The right systolic ratio is 0.9. The peak systolic velocity within the left ICA is 83 cm/s. The left systolic ratio is 0.8. IMPRESSION: 1. No hemodynamically significant stenosis or occlusion seen within the carotid arteries or vertebral arteries. 2. The right external jugular vein is thrombosed. ACT 112: Negative or not required by law. Electronically signed by: Darian Wiseman M.D. 05/08/2022 5:39 PM
[2022-05-08] MEDS: OLANZapine 5 MG TABLET PO SCH (20:34)
[2022-05-08] MEDS: traZODone HCL 100 MG TAB PO SCH (20:59)
--- NOTE | 2022-05-08 22:07 | Hospitalist Progress Note ---
Date of Service May 08, 2022 Assessment & Plan (1) Hematoma: Plan: left arm at site of previous thrombophlebitis causing pain but no associated signs or symptoms of infection of hematoma -elevate limb above heart -increase frequency of hydrocodone prn -warm compresses did not help -hgb stable-ok to continue warfarin with goal aim 2-3 S/p incision and drainage left arm on April [address] Woodruff, appreciate orthopedics ongoing management of this (2) Headache: Plan: Suspect combination of tension (neck pain on exam) and migraine headache (history of this). Suspect started after his operation due to head positioning during the surgery. Per prior neurology note triptans not being effective. He reports steroid pack is usually effective. Per previous neurology notes he gets a Medrol Dosepak. No significant improvement with medrol dosepak. No longer has IV access. Will give dexamethasone 10mg IM. If ongoing use lorazepam 0.5mg PO for neck spasm as prescribed. If lorazepam not effective will need to obtain IV access for further treatment such as Valproic acid / Compazine (will get EKG for up to date QTC in anticipation of this). Use warm compress / heating pad on left neck Patient appears to have a low pain threshold. Pateint will have spouse bring in Personal hearing therapy teacher so he can use his pain medicine. Patient refusing discharge until his pain is better. LIkely this is related to his positioning. Recommended that he move around and sit in the chair. On 05/08 compazine and benadryl did not help Patient continues to have significant headache. will consult neurology. due to his thrombosis, and bleeding earlier in hospital stay, patient does not have any IV access. continues to use his personal therapy teacher. placed on divalproex and olanzapine this did not help either. will repeat imaging to rule out vertebral artery dissection, however, patient does not have good venous access. Will obtain carotid dopplers and will obtain ct head and ct cervical spine. will consider NSAID will consider OMT amador monitor improvement (3) Orthostatic dizziness: Plan: Suspect his dizziness is mostly related to his migraine as above. CT head negative for intracranial pathology Will hold off restarting lasix given headache and reasonaly controlled BP given his ongoing pain (4) Chest pain: Plan: Resolved (5) Generalized weakness: Plan: 2/2 prolonged (17 day) recent hospital stay. He was ambulating 80 feet during that stay with PT and felt well enough to go home at the time But obviously was not doing as well as he thought he was once he returned home Patient now wishing to be discharged home. Physical therapy recommending 24/ care and patient to be on a single-story with home health to be set up. He has no specific medical needs that he requires to be in a jail although as we titrate his warfarin he would likely be better served at [facility]. (6) Constipation: Plan: with severe colonic ileus prior hospitalization, now moving bowels regularly -continue Miralax and senna/docusate bid (7) Chronic venous insufficiency: Plan: noted (8) Depression: Plan: stable Continue Lexapro, trazodone nightly (9) Hypothyroidism: Plan: TSH recently normal, continue Synthroid 100 mcg daily (10) Paroxysmal atrial fibrillation: Plan: last admission had new diagnosis of WESLEY. AV kayla agents caused significant hypotension and was started on amiodarone Sinus on admission and remains in regular rhythm on exam - Continue amiodarone 200mg daily Continue warfarin as below (11) Thoracic aortic aneurysm (TAA): Plan: Thoracic aortic aneurysm Continued outpatient surveillance, no acute change (12) Intractable back pain: Plan: Chronic back pain With postlaminectomy syndrome of lumbosacral region, with spinal cord stimulator in place with Dilaudid pump Follows with pain management - consulted this admission Continue pain pump Continue his usual hydrocodone and baclofen (13) Anemia: Plan: Hemoglobin 10.4 down from 13, blood loss suspect from hematoma should stabilize now hematoma was treated. No obvious bleeding anywhere else and just had EGD/colonoscopy last admission without bleeding Ferritin 83 on 04/16/2022, transferrin saturation 23% 04/16, normal serum iron and low TIBC suggestive of anemia of chronic disease B12 low normal at 323 last admission and folate normal With smudge cells but is leukopenic, no evidence of CLL on peripheral smear peripheral smear here interpreted as anemia of chronic disease (14) Venous thrombosis: Plan: Cephalic vein thrombosis - superficial venous thrombosis Clots occurred while on Eliquis last admission suggesting failure; patient was switched to warfarin after Lovenox bridge on prior discharge due to concern for recurrent clots and suspected hypercoagulable state - follow INR daily Lupus anticoagulant weak positive from previous admission--> recommend repeat testing in 12 weeks anti-phospholipid abs negative homocysteine level elevated at 14.4 and had low normal B12 previously -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 Diet - heart healthy Disposition - continued stay on med/surg, PT/OT recommending rehab Admission and Anticipated Discharge Date Admission Date: April 25, 2022 Subjective 66 yo male reports still having headache. Review of Systems Review of Systems: All systems reviewed & are unremarkable except as noted in HPI & below Physical Exam Constitutional: WD/WN, vitals as above Eyes: + anicteric sclerae Neck: trachea midline, no thyromegaly Respiratory: normal respiratory effort, lungs clear to auscultation (except diminished BS at bases bilat) Cardiovascular: Rate/Rhythm: regular rate and regular rhythm Heart Sounds: no murmur Extremities: + edema (1+ woody edema legs bilat,left forearm 1+) Gastrointestinal (Abdomen): normal bowel sounds, soft, nontender, no hepatosplenomegaly Musculoskeletal: Extremities: + extremities abnormal to inspection (LUE as above, left arm is wrapped), no cyanosis and no clubbing Skin: no rashes, warm and dry + rash (purplish discoloration legs,chronic venous stasis changes bilat) Neurologic: moves all extremities and awake; no focal motor deficits Psychiatric: A+Ox3, euthymic affect Results & Data Results & Data ([facility]) Vital Signs (Past 12 Hours) Vital Signs Temp Pulse Resp BP Pulse Ox O2 Del Method 05/08/22 20:51 Room Air 05/08/22 14:14 36.6 C 62 16 140/69 96 Room Air PG Care Time/CCT Total # of Minutes Spent Total Time Spent with Patient: Total time spent is greater than 50% in coordination of care (as documented) at patient's floor/unit and/or counseling patient: Coding Level of Care Code 56064 Subseq Hosp Care Lvl 2 Diagnoses Hematoma T14.8XXA Headache R51.9 Orthostatic dizziness R42 Chest pain R07.9 Chest pain type: unspecified Generalized weakness R53.1 Constipation K59.00 Chronic venous insufficiency I87.2 Depression F32.9 Hypothyroidism E03.9 Paroxysmal atrial fibrillation I48.0 Thoracic aortic aneurysm (TAA) I71.20 Intractable back pain M54.9 Anemia D64.9 Venous thrombosis I82.90 GERD (gastroesophageal reflux disease) K21.9 Complex sleep apnea syndrome G47.31 Time Spent (min) 25 (1) Chest pain Chest pain type: unspecified Qualified Code(s): R07.9 - Chest pain, unspecified
[2022-05-09] MEDS: HYDROCODONE/ACETAMOPHEN 5/325MG TAB PO PRN (05:38)
[2022-05-09] MEDS: ONDANSETRON 4 MG OD TAB PO PRN ×2 (05:39→14:10)
[2022-05-09] MEDS: LEVOTHYROXINE SODIUM 100 MCG TABLET PO SCH (05:39)
--- NOTE | 2022-05-09 07:45 | CT Scan Report ---
CT head/brain wo con CLINICAL HISTORY: headache Technique: Contiguous axial CT images of the head were acquired from the base of the skull to the ludin leeroy without intravenous contrast administration. Images were viewed in brain, subdural and [facility]. Automated dose lowering techniques and/or adjustment according to patient size were utilized for this exam. Comparison: Comparison is made to CT head 05/01/2022 Findings: The ventricles, basal cisterns, and cerebral sulci are normal. There is no acute intracranial hemorrh age or evidence of acute territorial infarction. Neither mass effect, shift of the midline structures , nor abnormal extra-axial fluid collections are shown. Left maxillary sinus disease is seen. Calcification of falx is incidentally noted. The orbits appear normal. There are no acute fractures of the calvaria or scalp swelling. Impression: No acute intracranial hemorrhage, no evidence of acute territorial infarction or other acute intracra nial disease process. ACT 112: Negative or not required by law. Electronically signed by: Bebeto Loya M.D. 05/09/2022 7:44 AM
[2022-05-09] MEDS: DOCUSATE SODIUM/SENNA 50/8.6MG TAB PO SCH ×2 (08:47→20:05)
[2022-05-09] MEDS: LORazepam 0.5 MG TAB PO PRN (08:47)
[2022-05-09] MEDS: PANTOprazole 40 MG TAB PO SCH ×2 (08:47→20:03)
[2022-05-09] MEDS: DIVALPROEX EXTENDED RELEASE 500 MG TAB PO SCH ×2 (08:47→20:01)
[2022-05-09] MEDS: BACLOFEN 10 MG TAB PO SCH ×3 (08:47→20:03)
[2022-05-09] MEDS: AMIODARONE 200 MG TAB PO SCH (08:48)
[2022-05-09] MEDS: CHOLECALCIFEROL 1,000 UNITS 25 MCG TAB PO SCH (08:48)
[2022-05-09] MEDS: DICLOFENAC SOD 1% GEL 100 GM TUBE EXT SCH ×4 (08:48→20:04)
[2022-05-09] MEDS: CYANOCOBALAMIN (B-12) 500 MCG TABLET PO SCH (08:48)
[2022-05-09] MEDS: ESCITALOPRAM OXALATE 20 MG TAB PO SCH (08:48)
[2022-05-09] MEDS: POLYETHYLENE (MIRALAX) 17 GM PACK PO SCH ×2 (08:49→20:03)
[2022-05-09] MEDS: FLUTICASONE/VILANTEROL 200/25MCG 14 PUFFS/INHALER INH SCH (08:49)
[2022-05-09] MEDS: MULTIVITAMIN TAB PO SCH (08:49)
--- NOTE | 2022-05-09 08:49 | Neurology Progress Note ---
Date of Service May 09, 2022 Assessment & Plan (1) Headache: Plan This patient has a history of migraine headaches, but has a new, acute, severe headache different from his typical migraines over the past 3-4 days. It is very left-sided and he is tender in the neck. I also note the hearing loss on the left with no other focal neurologic deficits on examination. His headache is the same today as it was yesterday. He was refractory to steroids and low- dose hydrocodone. CT scan of the head several days ago was unremarkable. Unfortunately we cannot get an MRI due to his pain pump implantation. Repeat CT scan of the head was unremarkable and CT scan of the cervical spine showed degenerative changes of disc in bone which could cause pain but no significant bony fractures or spinal stenosis was noted. Carotid ultrasound was unremarkable. Unfortunately, CT angiography of the head and neck was not obtained. Recommendations: 1. Consider Ketorolac IV for pain if there is no contraindication. 2. Consider stronger narcotic pain medicine (temporarily) to decrease this headache. Overall, I spent a total 35 minutes with this case including review of records, review of CT films, direct evaluation the patient at bedside, and discussion of the case with patient and RN at bedside, Dr. Loya radiology, and Dr. Crowell, including differential diagnosis and treatment options. Admission and Anticipated Discharge Date Admission Date: April 25, 2022 Subjective Patient continues to have significant left-sided headache including the left neck. He is very photophobic. Steroids did not help his headache. hydrocodone 5/325 was of no help this morning. Blood pressure is 167/72. He is afebrile. The patient had CT scan of the head which was unremarkable. Carotid ultrasound was unremarkable without significant stenoses and vertebral artery had good flow without obvious abnormalities. CT scan of the cervical spine showed degenerative changes and disc in bone and foraminal narrowing particularly on the right side, with no significant spinal stenosis or changes that might create myelopathy. I reviewed these films with radiologist, Dr. Loya. Unfortunately, he did not get CT angiography of the head and neck ( as I was concerned about possible left vertebral artery dissection ), as he was a difficult "stick". Results & Data ([facility]) Vital Signs (Past 12 Hours) Vital Signs Temp Pulse Pulse Resp BP Pulse Ox O2 Del Method 05/09/22 07:41 36.3 C L 63 18 167/72 H 92 Room Air 05/09/22 00:21 18 92 Room Air 05/08/22 22:25 36.9 C 72 16 134/69 92 Room Air 05/08/22 22:27 80 22 92 Room Air 05/08/22 20:51 Room Air Exam (Neuro) Physical Exam: He is awake and alert. Speech is without aphasia or dysarthria. Mood seems somewhat down and affect is appropriate. Thought processes are intact. Extraocular eye muscles are intact without nystagmus. There is no facial droop. Coordination is normal. Stance sitting up in is normal. PG Care Time/CCT Total # of Minutes Spent Total Time Spent with Patient: Total time spent is greater than 50% in coordination of care (as documented) at patient's floor/unit and/or counseling patient: Coding Level of Care Code 01502 Subseq Hosp Care Lvl 3 Diagnoses Headache R51.9 Time Spent (min) 35
[2022-05-09] MEDS: LIDOCAINE 5% 1 PATCH TD SCH (08:50)
--- NOTE | 2022-05-09 09:01 | CT Scan Report ---
CT cervical spine wo con CLINICAL HISTORY: headache TECHNIQUE: Multidetector row helical CT of the cervical spine was performed without administration of intravenous contrast. Coronal and sagittal reformations were obtained. Automated dose lowering techn iques and/or adjustment according to patient size were utilized for this exam. Comparison: None available at the time of this dictation. FINDINGS: No acute fractures or subluxations are identified. Degenerative changes are seen in the visualized sp ine. Neuroforaminal stenosis is seen on the right. The alignment is normal. Soft tissues are unremark able. IMPRESSION: Degenerative changes without evidence of acute bony injury. ACT 112: Negative or not required by law. Electronically signed by: Bebeto Loya M.D. 05/09/2022 8:59 AM
[2022-05-09] MEDS ORDERED: KETOROLAC TROMETHAMINE 10 MG TABLET PO STA (10:50)
[2022-05-09 11:07] LABS: INR 1.5 (0.9-1.1); Prothrombin Time 15.6 Seconds (9.0-12.0)
[2022-05-09] MEDS: WARFARIN SOD 2.5 MG TAB PO SCH (16:11)
[2022-05-09] MEDS ORDERED: diazePAM 5 MG TABLET PO ONE (18:28)
[2022-05-09] MEDS ORDERED: MAGNESIUM OXIDE 400 MG TAB PO ONE (18:29)
[2022-05-09] MEDS ORDERED: CALCIUM CARBONATE 500 MG CHEWABLE TAB PO ONE (18:29)
--- NOTE | 2022-05-09 18:30 | Hospitalist Progress Note ---
Date of Service May 09, 2022 Assessment & Plan Admission and Anticipated Discharge Date Admission Date: April 25, 2022 Results & Data Results & Data ([facility]) Vital Signs (Past 12 Hours) Vital Signs Temp Pulse Resp BP Pulse Ox O2 Del Method 05/09/22 14:40 98.1 F 80 16 135/71 93 Room Air 05/09/22 07:41 97.3 F L 63 18 167/72 H 92 Room Air PG Care Time/CCT Total # of Minutes Spent Total Time Spent with Patient: Total time spent is greater than 50% in coordination of care (as documented) at patient's floor/unit and/or counseling patient: Coding Level of Care Code None CPT Codes Musculoskeletal - Musculoskeletal: [address] 1-2 Body regions ([id number])
--- NOTE | 2022-05-09 18:32 | Communication Note ---
Date of Service: May 09, 2022 Asked to see for evaluation for OMT. HPI reviewed, discussed with patientheadache, left-sided neck pain pretty bad for about a week. Vitals noted, in general he is awake and alert pleasant no distress. Laying still. Breathing unlabored no accessory muscle use good effort. Skin shows no rashes no pallor or icterus. Osteopathic structural exam shows left- sided C-spine paraspinals including suboccipitals to be high tone, tender, decreased range of motioncommendation of counterstrain, post isometric relaxation muscle energy, and indirect unwinding done with some improvement in tissue texturepatient tolerated well; while tissue texture improved, currently his symptoms did not Somatic dysfunction cervical regionOMT as above. Given severity of muscle spasmmagnesium/calcium/Valium now, likely will need ongoing OMT for the short- term.
[2022-05-09] MEDS: ALBUTEROL HFA 8 GM INHALER INH PRN (19:58)
[2022-05-09] MEDS: traZODone HCL 100 MG TAB PO SCH (20:03)
[2022-05-09] MEDS: OLANZapine 5 MG TABLET PO SCH (20:03)
--- NOTE | 2022-05-09 22:00 | Hospitalist Progress Note ---
Date of Service May 09, 2022 Assessment & Plan (1) Hematoma: Plan: left arm at site of previous thrombophlebitis causing pain but no associated signs or symptoms of infection of hematoma -elevate limb above heart -increase frequency of hydrocodone prn -warm compresses did not help -hgb stable-ok to continue warfarin with goal aim 2-3 S/p incision and drainage left arm on April [address] Woodruff, appreciate orthopedics ongoing management of this (2) Headache: Plan: Suspect combination of tension (neck pain on exam) and migraine headache (history of this). Suspect started after his operation due to head positioning during the surgery. Per prior neurology note triptans not being effective. He reports steroid pack is usually effective. Per previous neurology notes he gets a Medrol Dosepak. No significant improvement with medrol dosepak. No longer has IV access. Will give dexamethasone 10mg IM. If ongoing use lorazepam 0.5mg PO for neck spasm as prescribed. If lorazepam not effective will need to obtain IV access for further treatment such as Valproic acid / Compazine (will get EKG for up to date QTC in anticipation of this). Use warm compress / heating pad on left neck Patient appears to have a low pain threshold. Pateint will have spouse bring in Personal recreation therapy aide so he can use his pain medicine. Patient refusing discharge until his pain is better. LIkely this is related to his positioning. Recommended that he move around and sit in the chair. On 05/08 compazine and benadryl did not help Patient continues to have significant headache. will consult neurology. due to his thrombosis, and bleeding earlier in hospital stay, patient does not have any IV access. continues to use his personal behavioral therapy coordinator. placed on divalproex and olanzapine this did not help either. will repeat imaging to rule out vertebral artery dissection, however, patient does not have good venous access. Will obtain carotid dopplers and will obtain ct head and ct cervical spine. will consider NSAID will consider OMT discussed with Deuce. Patient will have OMT later today. amador monitor improvement (3) Orthostatic dizziness: Plan: Suspect his dizziness is mostly related to his migraine as above. CT head negative for intracranial pathology Will hold off restarting lasix given headache and reasonaly controlled BP given his ongoing pain (4) Chest pain: Plan: Resolved (5) Generalized weakness: Plan: 2/2 prolonged (17 day) recent hospital stay. He was ambulating 80 feet during that stay with PT and felt well enough to go home at the time But obviously was not doing as well as he thought he was once he returned home Patient now wishing to be discharged home. Physical therapy recommending 24 care and patient to be on a single-story with home health to be set up. He has no specific medical needs that he requires to be in a halfway although as we titrate his warfarin he would likely be better served at [facility]. (6) Constipation: Plan: with severe colonic ileus prior hospitalization, now moving bowels regularly -continue Miralax and senna/docusate bid (7) Chronic venous insufficiency: Plan: noted (8) Depression: Plan: stable Continue Lexapro, trazodone nightly (9) Hypothyroidism: Plan: TSH recently normal, continue Synthroid 100 mcg daily (10) Paroxysmal atrial fibrillation: Plan: last admission had new diagnosis of WESLEY. AV kayla agents caused significant hypotension and was started on amiodarone Sinus on admission and remains in regular rhythm on exam - Continue amiodarone 200mg daily Continue warfarin as below (11) Thoracic aortic aneurysm (TAA): Plan: Thoracic aortic aneurysm Continued outpatient surveillance, no acute change (12) Intractable back pain: Plan: Chronic back pain With postlaminectomy syndrome of lumbosacral region, with spinal cord stimulator in place with Dilaudid pump Follows with pain management - consulted this admission Continue pain pump Continue his usual hydrocodone and baclofen (13) Anemia: Plan: Hemoglobin 10.4 down from 13, blood loss suspect from hematoma should stabilize now hematoma was treated. No obvious bleeding anywhere else and just had EGD/colonoscopy last admission without bleeding Ferritin 83 on 04/16/2022, transferrin saturation 23% 04/16, normal serum iron and low TIBC suggestive of anemia of chronic disease B12 low normal at 323 last admission and folate normal With smudge cells but is leukopenic, no evidence of CLL on peripheral smear peripheral smear here interpreted as anemia of chronic disease (14) Venous thrombosis: Plan: Cephalic vein thrombosis - superficial venous thrombosis Clots occurred while on Eliquis last admission suggesting failure; patient was switched to warfarin after Lovenox bridge on prior discharge due to concern for recurrent clots and suspected hypercoagulable state - follow INR daily Lupus anticoagulant weak positive from previous admission--> recommend repeat testing in 12 weeks anti-phospholipid abs negative homocysteine level elevated at 14.4 and had low normal B12 previously -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 Diet - heart healthy Disposition - continued stay on med/surg, PT/OT recommending rehab Admission and Anticipated Discharge Date Admission Date: April 25, 2022 Subjective 66 yo male reports no improvement. Review of Systems Review of Systems: All systems reviewed & are unremarkable except as noted in HPI & below Physical Exam Constitutional: WD/WN, vitals as above Eyes: + anicteric sclerae Neck: trachea midline, no thyromegaly Respiratory: normal respiratory effort, lungs clear to auscultation (except diminished BS at bases bilat) Cardiovascular: Rate/Rhythm: regular rate and regular rhythm Heart Sounds: no murmur Extremities: + edema (1+ woody edema legs bilat,left forearm 1+) Gastrointestinal (Abdomen): normal bowel sounds, soft, nontender, no hepatos plenomegaly Musculoskeletal: Extremities: + extremities abnormal to inspection (LUE as above, left arm is wrapped), no cyanosis and no clubbing Skin: no rashes, warm and dry + rash (purplish discoloration legs,chronic venous stasis changes bilat) Neurologic: moves all extremities and awake; no focal motor deficits Psychiatric: A+Ox3, euthymic affect Results & Data Results & Data ([facility]) Vital Signs (Past 12 Hours) Vital Signs Temp Pulse Resp BP Pulse Ox O2 Del Method 05/09/22 20:00 Room Air 05/09/22 14:40 36.7 C 80 16 135/71 93 Room Air PG Care Time/CCT Total # of Minutes Spent Total Time Spent with Patient: Total time spent is greater than 50% in coordination of care (as documented) at patient's floor/unit and/or counseling patient: Coding Level of Care Code 75753 Subseq Hosp Care Lvl 2 Diagnoses Hematoma T14.8XXA Headache R51.9 Orthostatic dizziness R42 Chest pain R07.9 Chest pain type: unspecified Generalized weakness R53.1 Constipation K59.00 Chronic venous insufficiency I87.2 Depression F32.9 Hypothyroidism E03.9 Paroxysmal atrial fibrillation I48.0 Thoracic aortic aneurysm (TAA) I71.20 Intractable back pain M54.9 Anemia D64.9 Venous thrombosis I82.90 GERD (gastroesophageal reflux disease) K21.9 Complex sleep apnea syndrome G47.31 Time Spent (min) 25 (1) Chest pain Chest pain type: unspecified Qualified Code(s): R07.9 - Chest pain, uns pecified
[2022-05-10] MEDS: LEVOTHYROXINE SODIUM 100 MCG TABLET PO SCH (05:34)
[2022-05-10] MEDS: HYDROCODONE/ACETAMOPHEN 5/325MG TAB PO PRN ×2 (05:35→19:56)
[2022-05-10] MEDS: DICLOFENAC SOD 1% GEL 100 GM TUBE EXT SCH ×4 (07:44→20:02)
[2022-05-10] MEDS: ONDANSETRON 4 MG OD TAB PO PRN (08:17)
[2022-05-10 08:29] LABS: INR 1.5 (0.9-1.1); Prothrombin Time 15.8 Seconds (9.0-12.0)
[2022-05-10] MEDS: ESCITALOPRAM OXALATE 20 MG TAB PO SCH (09:10)
[2022-05-10] MEDS: FLUTICASONE/VILANTEROL 200/25MCG 14 PUFFS/INHALER INH SCH (09:10)
[2022-05-10] MEDS: CHOLECALCIFEROL 1,000 UNITS 25 MCG TAB PO SCH (09:10)
[2022-05-10] MEDS: CYANOCOBALAMIN (B-12) 500 MCG TABLET PO SCH (09:10)
[2022-05-10] MEDS: POLYETHYLENE (MIRALAX) 17 GM PACK PO SCH ×2 (09:10→20:00)
[2022-05-10] MEDS: AMIODARONE 200 MG TAB PO SCH (09:10)
[2022-05-10] MEDS: MULTIVITAMIN TAB PO SCH (09:10)
[2022-05-10] MEDS: BACLOFEN 10 MG TAB PO SCH ×3 (09:10→20:00)
[2022-05-10] MEDS: PANTOprazole 40 MG TAB PO SCH ×2 (09:11→20:01)
[2022-05-10] MEDS: LIDOCAINE 5% 1 PATCH TD SCH (09:11)
[2022-05-10] MEDS: DOCUSATE SODIUM/SENNA 50/8.6MG TAB PO SCH ×2 (09:11→20:01)
[2022-05-10] MEDS: DIVALPROEX EXTENDED RELEASE 500 MG TAB PO SCH ×2 (09:34→20:01)
--- NOTE | 2022-05-10 11:14 | Orthopedic Progress Note ---
Date of Service May 10, 2022 Assessment & Plan (1) Hematoma: Plan: POD #12 s/p I&D LUE, doing well Resume diet. WBAT. Continue pain control. DVT prophylaxis: TEDs, SCDs while in hospital, Coumadin per Hospitalist service bridging with Lovenox 30 mg BID. Sutures removed today. Steri-Strips applied. Liborio bandage was reapplied. He may put a padded dressing on the area if he feels comfortable. He may use his arm for light daily activities including using a walker. May weight-bear as tolerated through the left arm should avoid any strenuous lifting, pushing or pulling. Reapply Steri-Strips as needed. Okay to shower and get incision wet at this time.. PT/OT. D/C planning per case management. From an ortho standpoint he is fine for discharge; f/u in office in 4 weeks for reassessment. Will sign off, - please call [phone] or tiger text with any questions or concerns. Continue care per primary service. Admission and Anticipated Discharge Date Admission Date: April 25, 2022 Supervising Physician Co-Signing Physician Notes I, Dr. Woodruff, saw and examined the patient with my PA and discussed the management with my PA. I reviewed my PAs note and agree with the documented findings and the plan of care I developed. Subjective States that he continues to have some pain in the elbow, but it feels much better since surgery. States that he has a headache. Physical Exam Musculoskeletal: Incision clean, dry and intact. Sutures are retained. He is now 13 days status post surgery. He is seen and evaluated by Dr. Woodruff. We elected to remove the sutures. Surgical site was cleansed with alcohol and sutures removed. He tolerated this well. Steri-Strips were applied and his Liborio bandage was reapplied. He is full range of motion of his fingers, wrist and forearm. Tolerates gentle range of motion of the left elbow without significant discomfort. Distal pulses are 1+. Distal sensation is normal. No reaccumulation of the hematoma. Some resolving ecchymosis throughout the medial and undersurface of his elbow as expected. Results & Data ([facility]) Vital Signs (Past 12 Hours) Vital Signs Temp Pulse Resp BP Pulse Ox O2 Del Method 05/10/22 07:33 36.9 C 68 17 149/76 H 93 Room Air
[2022-05-10] MEDS: ALBUTEROL HFA 8 GM INHALER INH PRN (14:42)
[2022-05-10] MEDS ORDERED: WARFARIN SOD 4 MG TAB PO ONE (15:19)
[2022-05-10] MEDS ORDERED: diazePAM 5 MG TABLET PO ONE (17:27)
[2022-05-10] MEDS ORDERED: CALCIUM CARBONATE 500 MG CHEWABLE TAB PO ONE (17:27)
[2022-05-10] MEDS ORDERED: MAGNESIUM OXIDE 400 MG TAB PO ONE (17:27)
[2022-05-10] MEDS ORDERED: KETOROLAC TROMETHAMINE 15 MG/ML VIAL IM ONE (17:29)
--- NOTE | 2022-05-10 17:32 | Communication Note ---
Date of Service: May 10, 2022 Pain feels about the same. Headache about the same. Laying still. Breathing unlabored no accessory muscle use good effort. Skin shows no rashes no pallor or icterus. Osteopathic structural exam shows left- sided C-spine paraspinals including suboccipitals to be high tone, tender, decreased range of motionbut tissue did feel a bit softer than yesterday, and I was able to work with more pressure on soft tissue techniques than beforeutilized counterstrain, inhibitory pressure, and a degree of myofascial unwindingpatient tolerated welldefinitely better than yesterday. Somatic dysfunction cervical regionOMT as above. Given severity of muscle spasmmagnesium/calcium/Valium again now along with 1 IM dose of Toradol, likely will need ongoing OMT for the short-term.
--- NOTE | 2022-05-10 17:33 | Hospitalist Progress Note ---
Date of Service May 10, 2022 Assessment & Plan Admission and Anticipated Discharge Date Admission Date: April 25, 2022 Results & Data Results & Data ([facility]) Vital Signs (Past 12 Hours) Vital Signs Temp Pulse Resp BP BP Pulse Ox O2 Del Method 05/10/22 15:44 97.9 F 72 18 129/71 93 Room Air 05/10/22 14:43 76 18 93 Room Air 05/10/22 07:33 98.4 F 68 17 149/76 H 93 Room Air PG Care Time/CCT Total # of Minutes Spent Total Time Spent with Patient: Total time spent is greater than 50% in coordination of care (as documented) at patient's floor/unit and/or counseling patient: Coding Level of Care Code None CPT Codes Musculoskeletal - Musculoskeletal: [address] 1-2 Body regions ([id number])
[2022-05-10] MEDS: traZODone HCL 100 MG TAB PO SCH (20:00)
[2022-05-10] MEDS: OLANZapine 5 MG TABLET PO SCH (20:00)
--- NOTE | 2022-05-10 21:21 | Hospitalist Progress Note ---
Date of Service May 10, 2022 Assessment & Plan (1) Hematoma: Plan: left arm at site of previous thrombophlebitis causing pain but no associated signs or symptoms of infection of hematoma -elevate limb above heart -increase frequency of hydrocodone prn -warm compresses did not help -hgb stable-ok to continue warfarin with goal aim 2-3 S/p incision and drainage left arm on April [address] Woodruff, appreciate orthopedics ongoing management of this (2) Headache: Plan: Suspect combination of tension (neck pain on exam) and migraine headache (history of this). Suspect started after his operation due to head positioning during the surgery. Per prior neurology note triptans not being effective. He reports steroid pack is usually effective. Per previous neurology notes he gets a Medrol Dosepak. No significant improvement with medrol dosepak. No longer has IV access. Will give dexamethasone 10mg IM. If ongoing use lorazepam 0.5mg PO for neck spasm as prescribed. If lorazepam not effective will need to obtain IV access for further treatment such as Valproic acid / Compazine (will get EKG for up to date QTC in anticipation of this). Use warm compress / heating pad on left neck Patient appears to have a low pain threshold. Pateint will have spouse bring in Personal physical therapy manager so he can use his pain medicine. Patient refusing discharge until his pain is better. LIkely this is related to his positioning. Recommended that he move around and sit in the chair. On 05/08 compazine and benadryl did not help Patient continues to have significant headache. will consult neurology. due to his thrombosis, and bleeding earlier in hospital stay, patient does not have any IV access. continues to use his personal physical therapy director. placed on divalproex and olanzapine this did not help either. will repeat imaging to rule out vertebral artery dissection, however, patient does not have good venous access. Will obtain carotid dopplers and will obtain ct head and ct cervical spine. will consider NSAID OMT started on 05/09 and continued on 05/10 mild improvement (3) Orthostatic dizziness: Plan: Suspect his dizziness is mostly related to his migraine as above. CT head negative for intracranial pathology Will hold off restarting lasix given headache and reasonably controlled BP given his ongoing pain This has subsided, however, patient has not been out of bed. (4) Chest pain: Plan: Resolved (5) Generalized weakness: Plan: 2/2 prolonged (17 day) recent hospital stay. He was ambulating 80 feet during that stay with PT and felt well enough to go home at the time But obviously was not doing as well as he thought he was once he returned home Patient now wishing to be discharged home. Physical therapy recommending 24/ care and patient to be on a single-story with home health to be set up. He has no specific medical needs that he requires to be in a halfway although as we titrate his warfarin he would likely be better served at [facility]. (6) Constipation: Plan: with severe colonic ileus prior hospitalization, now moving bowels regularly -continue Miralax and senna/docusate bid (7) Chronic venous insufficiency: Plan: noted (8) Depression: Plan: stable Continue Lexapro, trazodone nightly (9) Hypothyroidism: Plan: TSH recently normal, continue Synthroid 100 mcg daily (10) Paroxysmal atrial fibrillation: Plan: last admission had new diagnosis of WESLEY. AV kayla agents caused significant hypotension and was started on amiodarone Sinus on admission and remains in regular rhythm on exam - Continue amiodarone 200mg daily Continue warfarin as below -Patient has INR of 1.5 with 2.5mg daily dose. Gave 4 mg of warfarin on 05/10 and will continue 3 mg in AM (11) Thoracic aortic aneurysm (TAA): Plan: Thoracic aortic aneurysm Continued outpatient surveillance, no acute change (12) Intractable back pain: Plan: Chronic back pain With postlaminectomy syndrome of lumbosacral region, with spinal cord stimulator in place with Dilaudid pump Follows with pain management - consulted this admission Continue pain pump Continue his usual hydrocodone and baclofen (13) Anemia: Plan: Hemoglobin 10.4 down from 13, blood loss suspect from hematoma should stabilize now hematoma was treated. No obvious bleeding anywhere else and just had EGD/colonoscopy last admission without bleeding Ferritin 83 on 04/16/2022, transferrin saturation 23% 04/16, normal serum iron and low TIBC suggestive of anemia of chronic disease B12 low normal at 323 last admission and folate normal With smudge cells but is leukopenic, no evidence of CLL on peripheral smear peripheral smear here interpreted as anemia of chronic disease (14) Venous thrombosis: Plan: Cephalic vein thrombosis - superficial venous thrombosis Clots occurred while on Eliquis last admission suggesting failure; patient was switched to warfarin after Lovenox bridge on prior discharge due to concern for recurrent clots and suspected hypercoagulable state - follow INR daily Lupus anticoagulant weak positive from previous admission--> recommend repeat testing in 12 weeks anti-phospholipid abs negative homocysteine level elevated at 14.4 and had low normal B12 previously -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 Diet - heart healthy Disposition - continued stay on med/surg, PT/OT recommending rehab/ patient wants to go home Admission and Anticipated Discharge Date Admission Date: April 25, 2022 Subjective 66 yo male reports not having improvement in his pain. Review of Systems Review of Systems: All systems reviewed & are unremarkable except as noted in HPI & below Physical Exam Constitutional: WD/WN, vitals as above Eyes: + anicteric sclerae Neck: trachea midline, no thyromegaly Respiratory: normal respiratory effort, lungs clear to auscultation (except diminished BS at bases bilat) Cardiovascular: Rate/Rhythm: regular rate and regular rhythm Heart Sounds: no murmur Extremities: + edema (1+ woody edema legs bilat,left forearm 1+) Gastrointestinal (Abdomen): normal bowel sounds, soft, nontender, no hepatosplenomegaly Musculoskeletal: Extremities: + extremities abnormal to inspection (LUE as above, left arm is wrapped), no cyanosis and no clubbing Skin: no rashes, warm and dry + rash (purplish discoloration legs,chronic venous stasis changes bilat) Neurologic: moves all extremities and awake; no focal motor deficits Psychiatric: A+Ox3, euthymic affect Results & Data Results & Data ([facility]) Vital Signs (Past 12 Hours) Vital Signs Temp Pulse Resp BP Pulse Ox O2 Del Method 05/10/22 19:45 Room Air 05/10/22 15:44 36.6 C 72 18 129/71 93 Room Air 05/10/22 14:43 76 18 93 Room Air PG Care Time/CCT Total # of Minutes Spent Total Time Spent with Patient: Total time spent is greater than 50% in coordination of care (as documented) at patient's floor/unit and/or counseling patient: Coding Level of Care Code 21953 Subseq Hosp Care Lvl 2 Diagnoses Hematoma T14.8XXA Headache R51.9 Orthostatic dizziness R42 Chest pain R07.9 Chest pain type: unspecified Generalized weakness R53.1 Constipation K59.00 Chronic venous insufficiency I87.2 Depression F32.9 Hypothyroidism E03.9 Paroxysmal atrial fibrillation I48.0 Thoracic aortic aneurysm (TAA) I71.20 Intractable back pain M54.9 Anemia D64.9 Venous thrombosis I82.90 GERD (gastroesophageal reflux disease) K21.9 Complex sleep apnea syndrome G47.31 Time Spent (min) 25 (1) Chest pain Chest pain type: unspecified Qualified Code(s): R07.9 - Chest pain, unspecified
[2022-05-11] MEDS: HYDROCODONE/ACETAMOPHEN 5/325MG TAB PO PRN (06:17)
[2022-05-11] MEDS: ONDANSETRON 4 MG OD TAB PO PRN ×2 (06:18→10:30)
[2022-05-11] MEDS: LEVOTHYROXINE SODIUM 100 MCG TABLET PO SCH (06:18)
[2022-05-11 08:42] LABS: INR 1.4 (0.9-1.1); Prothrombin Time 14.4 Seconds (9.0-12.0)
[2022-05-11] MEDS: MULTIVITAMIN TAB PO SCH (09:03)
[2022-05-11] MEDS: AMIODARONE 200 MG TAB PO SCH (09:03)
[2022-05-11] MEDS: CHOLECALCIFEROL 1,000 UNITS 25 MCG TAB PO SCH (09:04)
[2022-05-11] MEDS: CYANOCOBALAMIN (B-12) 500 MCG TABLET PO SCH (09:04)
[2022-05-11] MEDS: DOCUSATE SODIUM/SENNA 50/8.6MG TAB PO SCH ×2 (09:04→20:45)
[2022-05-11] MEDS: BACLOFEN 10 MG TAB PO SCH ×3 (09:04→20:45)
[2022-05-11] MEDS: ESCITALOPRAM OXALATE 20 MG TAB PO SCH (09:04)
[2022-05-11] MEDS: PANTOprazole 40 MG TAB PO SCH ×2 (09:05→20:44)
[2022-05-11] MEDS: LIDOCAINE 5% 1 PATCH TD SCH (09:05)
[2022-05-11] MEDS: POLYETHYLENE (MIRALAX) 17 GM PACK PO SCH ×2 (09:05→20:45)
[2022-05-11] MEDS: DIVALPROEX EXTENDED RELEASE 500 MG TAB PO SCH ×2 (09:05→20:44)
[2022-05-11] MEDS: FLUTICASONE/VILANTEROL 200/25MCG 14 PUFFS/INHALER INH SCH (09:06)
[2022-05-11 09:07] LABS: Creatinine Clr Calc Pharmacy 141.1 ml/min; Est GFR (African American) 120.7 ml/min; Est GFR (Non-African American) 104.1 ml/min
[2022-05-11] MEDS: DICLOFENAC SOD 1% GEL 100 GM TUBE EXT SCH ×4 (09:07→20:46)
--- NOTE | 2022-05-11 11:59 | Orthopedic Progress Note ---
Date of Service May 11, 2022 Assessment & Plan (1) History of elbow surgery: Plan: Plan: POD #13 s/p I&D LUE, doing well Continue pain control. DVT prophylaxis: TEDs, SCDs while in hospital, Coumadin per Hospitalist service bridging with Lovenox 30 mg BID. He may put a padded dressing on the area if he feels comfortable. He may use his arm for light daily activities including using a walker. May weight-bear as tolerated through the left arm should avoid any strenuous lifting, pushing or pulling. Reapply Steri-Strips as needed. Okay to shower and get incision wet at this time.. D/C planning per case management. From an ortho standpoint he is fine for discharge; f/u in office in 4 weeks for reassessment.Patient was educated regarding today's findings. His wound looks good. Liborio wrap was reapplied. Continue with icing and elevating as needed. Admission and Anticipated Discharge Date Admission Date: April 25, 2022 Subjective Patient is seen in his room this morning. He continues to complain of a headache. He states Tylenol does not touch it. He has very little discomfort in his left elbow. No other complaints at this time. He states he is still awaiting final discharge planning and arrangement of home health. Physical Exam Physical Exam: General: Well-developed, well-nourished, elderly male, in no acute distress. Sitting in bed. Alert and oriented. His left arm is propped on a pillow. Liborio wrap is in place. Skin: Warm and dry with good turgor. Upon removal of his Liborio wrap, he has small amount of edema present over the medial epicondyle. There is also some residual ecchymosis. It is also minor. Steri-Strips are in place. Wound edges remain approximated. There is no active drainage. No warmth. Musculoskeletal: Patient has intact motor function of his shoulder, elbow, and wrist. He has full motion of his elbow for flexion and extension as well as supination and pronation, all without discomfort. Neurologic: Gross sensation is intact across the left arm by soft touch. Results & Data ([facility]) Vital Signs (Past 12 Hours) Vital Signs Temp Pulse Resp BP Pulse Ox O2 Del Method 05/11/22 07:36 36.8 C 58 L 20 144/73 H 92 Room Air
[2022-05-11] MEDS ORDERED: LIDOCAINE 2% LOCAL 50 ML VIAL INFIL ONE (12:43)
[2022-05-11] MEDS ORDERED: LIDOCAINE 2% LOCAL 50 ML VIAL ONE (15:51)
[2022-05-11] MEDS ORDERED: WARFARIN SOD 3 MG TAB PO SCH (16:00)
[2022-05-11] MEDS ORDERED: MAGNESIUM OXIDE 400 MG TAB PO ONE (17:45)
[2022-05-11] MEDS ORDERED: diazePAM 5 MG TABLET PO ONE (17:45)
[2022-05-11] MEDS ORDERED: CALCIUM CARBONATE 500 MG CHEWABLE TAB PO ONE (17:46)
--- NOTE | 2022-05-11 17:52 | Hospitalist Progress Note ---
Date of Service May 11, 2022 Assessment & Plan (1) Hematoma: Plan: left arm at site of previous thrombophlebitis causing pain but no associated signs or symptoms of infection of hematoma -elevate limb above heart -Continue hydrocodone as needed -warm compresses did not help -hgb stable-ok to continue warfarin with goal aim 2-3 (held today given that his INR was 1.4 and trigger point injections done today) S/p incision and drainage left arm on April [address] Woodruff, appreciate orthopedics ongoing management of this (2) Headache: Plan: Suspect combination of tension (neck pain on exam) and migraine headache (history of this). Suspect started after his operation due to head positioning during the surgery. Continue current med management, I do suspect getting his neck muscle spasms to improve will help -Cervical somatic dysfunctionOMT as above -Cervical trigger pointsinjected x5 as above with a total of 5 cc of 2% lidocaine -Once again Valium 5 mg now, calcium/magnesium. (3) Orthostatic dizziness: Plan: Seems to have improved (4) Chest pain: Plan: Resolved (5) Generalized weakness: Plan: 2/2 prolonged (17 day) recent hospital stay. He was ambulating 80 feet during that stay with PT and felt well enough to go home at the time But obviously was not doing as well as he thought he was once he returned home Patient now wishing to be discharged home. Physical therapy recommending 24/ care and patient to be on a single-story with home health to be set up. He has no specific medical needs that he requires to be in a skilled nursing although as we titrate his warfarin he would likely be better served at [facility]. Continue to follow as we get closer to discharge (6) Constipation: Plan: with severe colonic ileus prior hospitalization, now moving bowels regularly -continue Miralax and senna/docusate bid (7) Chronic venous insufficiency: Plan: noted (8) Depression: Plan: stable Continue Lexapro, trazodone nightly (9) Hypothyroidism: Plan: TSH recently normal, continue Synthroid 100 mcg daily (10) Paroxysmal atrial fibrillation: Plan: Rate controlled, anticoagulation resumedINR today 1.4, and given trigger point injections today, Coumadin held for today. Resume tomorrow. (11) Thoracic aortic aneurysm (TAA): Plan: Thoracic aortic aneurysm Continued outpatient surveillance, no acute change (12) Intractable back pain: Plan: Chronic back pain With postlaminectomy syndrome of lumbosacral region, with spinal cord stimulator in place with Dilaudid pump Follows with pain management - consulted this admission Continue pain pump Continue his usual hydrocodone and baclofen (13) Anemia: Plan: Almost certainly due to hematoma that is now stable No obvious bleeding anywhere else and just had EGD/colonoscopy last admission without bleeding Ferritin 83 on 04/16/2022, transferrin saturation 23% 04/16, normal serum iron and low TIBC suggestive of anemia of chronic disease B12 low normal at 323 last admission and folate normal With smudge cells but is leukopenic, no evidence of CLL on peripheral smear peripheral smear here interpreted as anemia of chronic disease (14) Venous thrombosis: Plan: Cephalic vein thrombosis - superficial venous thrombosis Clots occurred while on Eliquis last admission suggesting failure; patient was switched to warfarin after Lovenox bridge on prior discharge due to concern for recurrent clots and suspected hypercoagulable state - follow INR daily Lupus anticoagulant weak positive from previous admission--> recommend repeat testing in 12 weeks anti-phospholipid abs negative homocysteine level elevated at 14.4 and had low normal B12 previously -continue to replace B12 for hyperhomocysteinemia -recommend outpt f/u with Hematology -is already set up with anticoagulation clinic from prior admission but first appointment to be cancelled as is admitted to hospital (15) GERD (gastroesophageal reflux disease): Plan: found to have gastritis on EGD last admit Continue PPI twice daily (16) Complex sleep apnea syndrome: Plan Home versus rehab once his neck spasms and headache have improved Admission and Anticipated Discharge Date Admission Date: April 25, 2022 Subjective Ongoing neck pain. Does not really feel like it is any better. Ongoing headaches. Discussed OMT as well as trigger points. Did OMT as well as trigger point injections. See notes. Review of Systems Review of Systems: All systems reviewed & are unremarkable except as noted in HPI & below Physical Exam Physical Exam: In general he is awake and alert pleasant no distress. HEENT normocephalic atraumatic mucous membranes moist. Breathing unlabored no accessory muscle use good effort. Left arm dressed, bruising does not extend outside of the dressing. Skin shows no rashes no pallor or icterus. Osteopathic/musculoskeletalhis left-sided cervical paraspinals and probably region of levator scapulae muscle are high tone, tender, decreased range of motioninhibitory pressure/counterstrain/indirect unwinding done with some improvement in tissue texturepatient tolerated well. Trigger point injections procedure note: Informed consent obtained, risks (bleeding or infection, possibly worsening of pain before getting better, possible failure to improve) benefits (improvement in spasm, and improvement in pain) discussed, alternativecontinuing current planalso discussed. Patient consented for injections. Area cleansed with alcohol and then Betadine, and then on left side paraspinals as well as periscapular in the region of levator scapulae muscle, 5 separate trigger points were identified and needled, followed by leaving behind a total of 5 cc of 2% lidocaine without epi. Patient tolerated well. He did note specific burning on the 3 more proximal (cervical paraspinal) trigger pointsconsistent with an injection into a more tight/spastic area. At no time did he note paresthesias or shooting sensations down his arm or into his hand. Area cleaned again with alcohol post procedure, and patient helped back into bed. Patient tolerated well. Results & Data Results & Data ([facility]) Vital Signs (Past 12 Hours) Vital Signs Temp Pulse Resp BP Pulse Ox O2 Del Method 05/11/22 16:13 97.9 F 66 20 151/74 H 93 Room Air 05/11/22 07:36 98.2 F 58 L 20 144/73 H 92 Room Air PG Care Time/CCT Total # of Minutes Spent Total Time Spent with Patient: Total time spent is greater than 50% in coordination of care (as documented) at patient's floor/unit and/or counseling patient: Coding Level of Care Code 21047 Subseq Hosp Care Lvl 3 Diagnoses Hematoma T14.8XXA Headache R51.9 Orthostatic dizziness R42 Chest pain R07.9 Chest pain type: unspecified Generalized weakness R53.1 Constipation K59.00 Chronic venous insufficiency I87.2 Depression F32.9 Hypothyroidism E03.9 Paroxysmal atrial fibrillation I48.0 Thoracic aortic aneurysm (TAA) I71.20 Intractable back pain M54.9 Anemia D64.9 Venous thrombosis I82.90 GERD (gastroesophageal reflux disease) K21.9 Complex sleep apnea syndrome G47.31 CPT Codes Musculoskeletal - Musculoskeletal: [address] 1-2 Body regions ([id number]) Comment procedure: trigger point injection x5 sites (1) Chest pain Chest pain type: unspecified Qualified Code(s): R07.9 - Chest pain, unspecified
[2022-05-11] MEDS: ALBUTEROL HFA 8 GM INHALER INH PRN (19:10)
--- NOTE | 2022-05-11 20:27 | Communication Note ---
Date of Service: May 11, 2022 notified by patients RN that he was reporting feeling short of breath RT was by earlier and he went down to 76% on RA so 4L NC was placed with saturations returning to >92% he is on warfarin, INR today at 1.4 seen at bedside, sleeping comfortably; went to listen to him and he did say he felt short of breath he says this happens at home quite frequently so he takes albuterol he is also unsure why he takes Breo - says its to help him with SOB BP 170/72 HR 99 RR 20 T 38.1 SaO2 94% 4L NC general- sleeping comfortably resp - upon waking, mildly tachypneic with coarse and rhonchus expiratory lung sounds R<L base. cardiac - high normal rate, normal rhythm, no m/r/g extremities - chronic venous stasis changes appreciated, no unilateral swelling shortness of breath - -- reviewed chart, cannot identify any chronic h/o lung disease (other than complex BUBBA syndrome) though he is on Breo and has intermittently required breathing treatments. -- he does sound rhoncharus however and has a low-grade temp of 100.5F with tachycardia. possible aspiration/pneumonitis or atelectasis or developing PNA? -- anticoagulated though subtherapeutic INR in setting of hematoma and trigger point injx. given above findings lower suspicion for PE but considered and will pursue further w/u if the below therapies/dx do not reveal anything -- he does not look volume overloaded and has a net negative fluid balance since hes been here, TTE from 03/2022 reviewed. * Check CXR * DuoNebs now * Flutter valve ordered * Incentive spirometry * May wish to consider PFTs as outpatient Plan communicated w/ RN
--- NOTE | 2022-05-11 20:41 | XRay Report ---
XR chest 1V portable CLINICAL HISTORY: Shortness of breath. COMPARISON STUDY: Chest radiograph and chest CT April 23, 2022. FINDINGS: Low lung volumes are unchanged. There is no pneumothorax or pleural effusion. Cardiomediast inal silhouette is stable. There is no evidence for pulmonary edema. Intracanalicular electrodes are incidentally noted. Mild left basilar opacity is unchanged. Right basilar opacity has increased. IMPRESSION: Increase in right basilar opacity which reflect pneumonia or aspiration pneumonitis. Ate lectasis could appear similar. ACT 112: Negative or not required by law. Electronically signed by: Salazar Turner M.D. 05/11/2022 8:40 PM
[2022-05-11] MEDS: traZODone HCL 100 MG TAB PO SCH (20:44)
[2022-05-11] MEDS: OLANZapine 5 MG TABLET PO SCH (20:45)
[2022-05-12] MEDS: LEVOTHYROXINE SODIUM 100 MCG TABLET PO SCH (06:39)
[2022-05-12] MEDS: ONDANSETRON 4 MG OD TAB PO PRN (06:43)
[2022-05-12 06:48] LABS: Basophils # (auto) 0.02 K/uL (0-0.2); Basophils % (auto) 0.2 %; Eosinophils # (auto) 0.11 K/uL (0-0.50); Eosinophils % (auto) 1.3 %; Hematocrit (blood only) 28.7 % (40.1-51.0); Hemoglobin 9.3 g/dl (14.0-18.0); Immature Granulocytes # (auto) 0.03 K/uL (0.00-0.02); Immature Granulocytes % (auto) 0.4 %; Lymphocytes # (auto) 0.95 K/uL (1.2-3.4); Lymphocytes % (auto) 11.4 %; Mean Corpuscular Hemoglobin 30.4 pg (25.0-34.0); Mean Corpuscular Hgb Conc 32.4 g/dL (32.0-36.0); Mean Corpuscular Volume 93.8 fL (80.0-100.0); Mean Platelet Volume 9.1 fL (9.4-12.4); Monocytes # (auto) 0.87 K/uL (0.24-0.82); Monocytes % (auto) 10.5 %; Neutrophils # (auto) 6.34 K/uL (1.4-6.5); Neutrophils % (auto) 76.2 %; Platelet Count 190 K/uL (130-400); RDW Standard Deviation 51.6 fL (36.4-46.3); Red Blood Count 3.06 M/uL (4.63-6.08); White Blood Count 8.32 K/ul (4.8-10.8)
[2022-05-12 07:00] LABS: INR 1.4 (0.9-1.1); Prothrombin Time 14.4 Seconds (9.0-12.0)
[2022-05-12] MEDS: AMIODARONE 200 MG TAB PO SCH (09:18)
[2022-05-12] MEDS: BACLOFEN 10 MG TAB PO SCH ×3 (09:19→20:13)
[2022-05-12] MEDS: CYANOCOBALAMIN (B-12) 500 MCG TABLET PO SCH (09:20)
[2022-05-12] MEDS: CHOLECALCIFEROL 1,000 UNITS 25 MCG TAB PO SCH (09:20)
[2022-05-12] MEDS: DICLOFENAC SOD 1% GEL 100 GM TUBE EXT SCH ×4 (09:21→20:13)
[2022-05-12] MEDS: DOCUSATE SODIUM/SENNA 50/8.6MG TAB PO SCH ×2 (09:21→20:13)
[2022-05-12] MEDS: ESCITALOPRAM OXALATE 20 MG TAB PO SCH (09:21)
[2022-05-12] MEDS: DIVALPROEX EXTENDED RELEASE 500 MG TAB PO SCH ×2 (09:21→20:13)
[2022-05-12] MEDS: FLUTICASONE/VILANTEROL 200/25MCG 14 PUFFS/INHALER INH SCH (09:22)
[2022-05-12] MEDS: LIDOCAINE 5% 1 PATCH TD SCH (09:22)
[2022-05-12] MEDS: PANTOprazole 40 MG TAB PO SCH ×2 (09:23→20:13)
[2022-05-12] MEDS: MULTIVITAMIN TAB PO SCH (09:23)
[2022-05-12] MEDS: POLYETHYLENE (MIRALAX) 17 GM PACK PO SCH ×2 (09:24→20:14)
[2022-05-12] MEDS: ALBUTEROL HFA 8 GM INHALER INH PRN (10:41)
[2022-05-12] MEDS: CEFDINIR 300 MG CAP PO SCH ×2 (11:23→20:13)
[2022-05-12] MEDS: HYDROCODONE/ACETAMOPHEN 5/325MG TAB PO PRN (11:28)
[2022-05-12] MEDS: WARFARIN SOD 3 MG TAB PO SCH (17:22)
--- NOTE | 2022-05-12 19:59 | Hospitalist Progress Note ---
Date of Service May 12, 2022 Assessment & Plan (1) Hematoma: Plan: left arm at site of previous thrombophlebitis causing pain but no associated signs or symptoms of infection of hematoma -elevate limb above heart -Continue hydrocodone as needed -warm compresses did not help -hgb stable-ok to continue warfarin with goal aim 2-3 S/p incision and drainage left arm on April [address] Woodruff, appreciate orthopedics ongoing management of this (2) Headache: Plan: Suspect combination of tension (neck pain on exam) and migraine headache (history of this). Suspect started after his operation due to head positioning during the surgery. Continue current med management, I do suspect getting his neck muscle spasms to improve will help -Cervical somatic dysfunctionOMT done for several days -Cervical trigger pointsinjected x5 as above with a total of 5 cc of 2% lidocaine on 129held off on further OMT or injections today given that we did so much work yesterday. Discussed with patient is very common to feel little bit worse before feeling better after trigger point injections, and therefore given that things feel different/worse in the area where I did the injections I am hopeful for improvement. (3) Pneumonia: Plan: Fortunately not severe sepsis, no septic shock, really no sepsis at all. Fairly low oxygen requirement. Start ceftriaxone and follow. (4) Orthostatic dizziness: Plan: Seems to have improved (5) Chest pain: Plan: Resolved (6) Generalized weakness: Plan: 2/2 prolonged (17 day) recent hospital stay. He was ambulating 80 feet during that stay with PT and felt well enough to go home at the time But obviously was not doing as well as he thought he was once he returned home Patient now wishing to be discharged home. Physical therapy recommending 25/12 care and patient to be on a single-story with home health to be set up. He has no specific medical needs that he requires to be in a long-term although as we titrate his warfarin he would likely be better [facility]. Continue to follow as we get closer to discharge Encourage movement todayshe noted "not today"discussed that my concern is that with his movement being so minimal he is getting weaker, it may have even contributed to him getting his current pneumoniaand implored him to at least get out of bed to chair for several hours a day. (7) Constipation: Plan: with severe colonic ileus prior hospitalization, now moving bowels regularly -continue Miralax and senna/docusate bid (8) Chronic venous insufficiency: Plan: noted (9) Depression: Plan: stable Continue Lexapro, trazodone nightly (10) Hypothyroidism: Plan: TSH recently normal, continue Synthroid 100 mcg daily (11) Paroxysmal atrial fibrillation: Plan: Rate controlled, anticoagulation resumed follow INR (12) Thoracic aortic aneurysm (TAA): Plan: Thoracic aortic aneurysm Continued outpatient surveillance, no acute change (13) Intractable back pain: Plan: Chronic back pain With postlaminectomy syndrome of lumbosacral region, with spinal cord s timulator in place with Dilaudid pump Follows with pain management - consulted this admission Continue pain pump Continue his usual hydrocodone and baclofen (14) Anemia: Plan: Almost certainly due to hematoma that is now stable No obvious bleeding anywhere else and just had EGD/colonoscopy last admission without bleeding Ferritin 83 on 04/16/2022, transferrin saturation 23% 04/16, normal serum iron and low TIBC suggestive of anemia of chronic disease B12 low normal at 323 last admission and folate normal With smudge cells but is leukopenic, no evidence of CLL on peripheral smear peripheral smear here interpreted as anemia of chronic disease (15) Venous thrombosis: Plan: Cephalic vein thrombosis - superficial venous thrombosis Clots occurred while on Eliquis last admission suggesting failure; patient was switched to warfarin after Lovenox bridge on prior discharge due to concern for recurrent clots and suspected hypercoagulable state - follow INR daily Lupus anticoagulant weak positive from previous admission--> recommend repeat testing in 12 weeks anti-phospholipid abs negative homocysteine level elevated at 14.4 and had low normal B12 previously -continue to replace B12 for hyperhomocysteinemia -recommend outpt f/u with Hematology -is already set up with anticoagulation clinic from prior admission but first appointment to be cancelled as is admitted to hospital (16) GERD (gastroesophageal reflux disease): Plan: found to have gastritis on EGD last admit Continue PPI twice daily (17) Complex sleep apnea syndrome: Plan Home versus rehab once his neck spasms and headache have improved Admission and Anticipated Discharge Date Admission Date: April 25, 2022 Subjective Neck feels different, may be a little worse, strictly in the area of trigger point injections. Breathing a bit worse as well. When encouraged to get out of bed he groaned "not today." Review of Systems Review of Systems: All systems reviewed & are unremarkable except as noted in HPI & below Physical Exam Physical Exam: Awake and alert fatigued but no distress. HEENT normocephalic atraumatic mucous membranes moist. Lungs show faint rales base right sounding a bit mucousy. No rhonchi no wheezes no accessory muscle use good effort. Skin shows no rashes no pallor or icterus. Neuro without focal deficits. Results & Data Results & Data ([facility]) Vital Signs (Past 12 Hours) Vital Signs Temp Pulse Pulse Resp BP Pulse Ox O2 Del Method 05/12/22 14:48 97.9 F 75 18 143/65 H 93 Nasal Cannula 05/12/22 10:42 76 20 96 Nasal Cannula 05/12/22 09:10 Nasal Cannula 05/12/22 08:02 97.5 F L 67 18 149/67 H 97 Nasal Cannula O2 Flow Rate 05/12/22 14:48 2 05/12/22 10:42 3 05/12/22 09:10 05/12/22 08:02 2 PG Care Time/CCT Total # of Minutes Spent Total Time Spent with Patient: Total time spent is greater than 50% in coordination of care (as documented) at patient's floor/unit and/or counseling patient: Coding Level of Care Code 05191 Subseq Hosp Care Lvl 3 Diagnoses Hematoma T14.8XXA Headache R51.9 Pneumonia J18.9 Orthostatic dizziness R42 Chest pain R07.9 Chest pain type: unspecified Generalized weakness R53.1 Constipation K59.00 Chronic venous insufficiency I87.2 Depression F32.9 Hypothyroidism E03.9 Paroxysmal atrial fibrillation I48.0 Thoracic aortic aneurysm (TAA) I71.20 Intractable back pain M54.9 Anemia D64.9 Venous thrombosis I82.90 GERD (gastroesophageal reflux disease) K21.9 Complex sleep apnea syndrome G47.31 (1) Chest pain Chest pain type: unspecified Qualified Code(s): R07.9 - Chest pain, u nspecified
[2022-05-12] MEDS: OLANZapine 5 MG TABLET PO SCH (20:13)
[2022-05-12] MEDS: traZODone HCL 100 MG TAB PO SCH (21:10)
[2022-05-13] MEDS: LEVOTHYROXINE SODIUM 100 MCG TABLET PO SCH (06:18)
[2022-05-13] MEDS: HYDROCODONE/ACETAMOPHEN 5/325MG TAB PO PRN (06:33)
[2022-05-13] MEDS: ONDANSETRON 4 MG OD TAB PO PRN (06:33)
[2022-05-13 07:56] LABS: Basophils # (auto) 0.01 K/uL (0-0.2); Basophils % (auto) 0.2 %; Eosinophils # (auto) 0.15 K/uL (0-0.50); Eosinophils % (auto) 3.5 %; Hematocrit (blood only) 27.5 % (40.1-51.0); Hemoglobin 8.8 g/dl (14.0-18.0); Immature Granulocytes # (auto) 0.01 K/uL (0.00-0.02); Immature Granulocytes % (auto) 0.2 %; Lymphocytes # (auto) 0.64 K/uL (1.2-3.4); Lymphocytes % (auto) 14.7 %; Mean Corpuscular Hemoglobin 30.7 pg (25.0-34.0); Mean Corpuscular Volume 95.8 fL (80.0-100.0); Mean Platelet Volume 9.4 fL (9.4-12.4); Monocytes # (auto) 0.66 K/uL (0.24-0.82); Monocytes % (auto) 15.2 %; Neutrophils # (auto) 2.87 K/uL (1.4-6.5); Neutrophils % (auto) 66.2 %; Platelet Count 160 K/uL (130-400); RDW Coefficient of Variation 15.1 % (11.5-14.5); Red Blood Count 2.87 M/uL (4.63-6.08); White Blood Count 4.34 K/ul (4.8-10.8)
[2022-05-13 08:13] LABS: INR 1.2 (0.9-1.1); Prothrombin Time 12.5 Seconds (9.0-12.0)
[2022-05-13 08:26] LABS: Calcium 7.6 mg/dl (8.5-10.1); Creatinine Clr Calc Pharmacy 156.3 ml/min; Est GFR (African American) 125.8 ml/min; Est GFR (Non-African American) 108.5 ml/min; Potassium 4.6 mmol/L (3.5-5.1)
[2022-05-13] MEDS: LIDOCAINE 5% 1 PATCH TD SCH (08:35)
[2022-05-13] MEDS: CEFDINIR 300 MG CAP PO SCH ×2 (08:36→21:32)
[2022-05-13] MEDS: CHOLECALCIFEROL 1,000 UNITS 25 MCG TAB PO SCH (08:36)
[2022-05-13] MEDS: AMIODARONE 200 MG TAB PO SCH (08:36)
[2022-05-13] MEDS: BACLOFEN 10 MG TAB PO SCH ×3 (08:36→21:33)
[2022-05-13] MEDS: MULTIVITAMIN TAB PO SCH (08:36)
[2022-05-13] MEDS: DIVALPROEX EXTENDED RELEASE 500 MG TAB PO SCH ×2 (08:36→21:32)
[2022-05-13] MEDS: FLUTICASONE/VILANTEROL 200/25MCG 14 PUFFS/INHALER INH SCH (08:36)
[2022-05-13] MEDS: CYANOCOBALAMIN (B-12) 500 MCG TABLET PO SCH (08:36)
[2022-05-13] MEDS: DOCUSATE SODIUM/SENNA 50/8.6MG TAB PO SCH ×2 (08:37→21:32)
[2022-05-13] MEDS: PANTOprazole 40 MG TAB PO SCH ×2 (08:37→21:30)
[2022-05-13] MEDS: ESCITALOPRAM OXALATE 20 MG TAB PO SCH (08:37)
[2022-05-13] MEDS: POLYETHYLENE (MIRALAX) 17 GM PACK PO SCH ×2 (08:38→21:35)
[2022-05-13] MEDS: DICLOFENAC SOD 1% GEL 100 GM TUBE EXT SCH ×4 (08:38→21:35)
[2022-05-13] MEDS: ALBUTEROL HFA 8 GM INHALER INH PRN (10:14)
--- NOTE | 2022-05-13 12:21 | XRay Report ---
XR chest 2V PA/lateral CLINICAL HISTORY: Pneumonia. COMPARISON STUDY: Chest CT April 23, 2022 and chest radiograph May 11, 2022. FINDINGS: Intracanalicular electrodes are incidentally noted. There is no pneumothorax or pleural eff usion. Lung volumes are diminished. This is unchanged. Cardiomegaly is unchanged. There is no evidenc e for overt pulmonary edema. Mild left basilar opacity favors atelectasis. Right basilar opacity is n oted. IMPRESSION: 1. Right basilar opacity which reflect pneumonia or atelectasis. Left basilar opacity favors atelecta sis. 2. Cardiomegaly. No evidence for overt pulmonary edema. ACT 112: Negative or not required by law. Electronically signed by: Salazar Turner M.D. 05/13/2022 12:20 PM
--- NOTE | 2022-05-13 13:30 | Hospitalist Progress Note ---
Date of Service May 13, 2022 Assessment & Plan (1) Hematoma: Plan: at left arm at site of previous thrombophlebitis. S/p I&D left arm on April [address] Woodruff. Appreciate orthopedics management. Local care until healed (2) Headache: Plan: Now resolved. Appears to be tension headache related. Cervical trigger points have been injected x5 with a total of 5 cc of 2% lidocaine on 05/12. (3) Pneumonia: Plan: Right lower lobe infiltrate noted on x-ray. He also has bilateral lower lobe atelectasis. Incentive spirometry ordered. He is now on cefdinir orally. Previously on intravenous Rocephin. (4) Orthostatic dizziness: Plan: Resolved (5) Chest pain: Plan: Resolved. No evidence of acute [place] (6) Generalized weakness: Plan: Improving with physical therapy. We will continue with home health at home (7) Constipation: Plan: continue Miralax and senna/docusate bid (8) Chronic venous insufficiency: Plan: Bilateral lower extremities. Supportive care (9) Depression: Plan: stable. Continue Lexapro, trazodone nightly (10) Hypothyroidism: Plan: TSH recently normal. Continue Synthroid 100 mcg daily (11) Paroxysmal atrial fibrillation: Plan: Rate controlled with current medical regiment. Continue Coumadin therapy. (12) Thoracic aortic aneurysm (TAA): Plan: Continued outpatient surveillance. No acute change (13) Intractable back pain: Plan: Chronic back pain with postlaminectomy syndrome of lumbosacral region, with spinal cord stimulator in place with Dilaudid pump. Follows with pain management. Continue usual hydrocodone and baclofen (14) Anemia: Plan: now stable. No sign of GI bleeding. Had EGD/colonoscopy last admission without signs of active bleeding. Lab tests suggestive of anemia of chronic disease. 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 Occurred while on Eliquis. Subsequently switched to warfarin due to concern for recurrent lyric ts and suspected hypercoagulable state. Lupus anticoagulant weak positive from previous admission. Anti-phospholipid abs negative, homocysteine level elevated at 14.4 and had low normal B12 previously. Recommend outpt f/u with Hematology (16) GERD (gastroesophageal reflux disease): Plan: found to have gastritis on EGD last admit. Continue PPI twice daily (17) Complex sleep apnea syndrome: Plan: CPAP at bedtime as needed Plan Anticipate eventual discharge to home with home health services. It appears he will need supplemental oxygen for a while until the atelectasis and mild hypoxemia resolves Admission and Anticipated Discharge Date Admission Date: April 25, 2022 Subjective Alert and oriented. No acute distress. Two-step oxygen evaluation reveals the need for 2 L of oxygen at rest and with ambulation. Repeat chest x-ray today, May 13, reviewed reveals bibasilar atelectasis and he may have right lower lobe infiltrate in addition. Incentive spirometry ordered. He is on cefdinir orally. Review of Systems 2 Review of Systems: Constitutional-no fever or chills ENT-no blurred vision, no double vision, no epistaxis, no sore throat Respiratory-no cough, no wheezing. Shortness of breath with exertion Cardiac-no palpitations, no chest pain, no syncope GI-no nausea, vomiting, diarrhea, melena, hematochezia -no urinary retention, no urinary incontinence, no dysuria, no hematuria Musculoskeletal-no joint pain, no muscle tenderness Skin-chronic venous insufficiency bilateral lower extremities Neuro-no isolated weakness, no paresthesia, no weakness Psych-no depression, no anxiety Physical Exam Physical Exam: General-alert and oriented x3, no fevers, no chills HEENT-head atraumatic and normocephalic, pupils equal and reactive to light, extraocular muscles intact Neck-no lymphadenopathy or thyromegaly, trachea midline Chest-diminished breath sounds bilaterally. No wheezing or rhonchi Cardiac-regular rate and rhythm, normal S1 and S2, no murmurs Abdomen-normal bowel sounds, nontender, no hepatosplenomegaly Extremities-chronic venous stasis changes bilateral lower extremities with brawny induration Neuro-cranial nerves II through XII intact, motor and sensory function within normal limits, strength symmetrical , no focal deficits Psych-normal affect, normal mood Results & Data Results & Data ([facility]) Vital Signs (Past 12 Hours) Vital Signs Temp Pulse Pulse Pulse Pulse Pulse Resp 05/13/22 10:16 92 H 20 05/13/22 10:15 96 H 110 H 94 H 05/13/22 08:00 05/13/22 07:56 36.7 C 69 18 Resp Resp Resp BP Pulse Ox Pulse Ox Pulse Ox 05/13/22 10:16 90 05/13/22 10:15 20 24 20 90 90 05/13/22 08:00 05/13/22 07:56 141/66 H Pulse Ox O2 Del Method O2 Flow Rate O2 Flow Rate O2 Flow Rate 05/13/22 10:16 Nasal Cannula 2 05/13/22 10:15 88 L 2 2 05/13/22 08:00 Nasal Cannula 1.5 05/13/22 07:56 Nasal Cannula 1.5 Laboratory Results 05/13/22 07:26 05/13/22 07:26 PG Care Time/CCT Total # of Minutes Spent Total Time Spent with Patient: Total time spent is greater than 50% in coordination of care (as documented) at patient's floor/unit and/or counseling patient: Coding Level of Care Code 28207 Subseq Hosp Care Lvl 3 Diagnoses Hematoma T14.8XXA Headache R51.9 Pneumonia J18.9 Orthostatic dizziness R42 Chest pain R07.9 Chest pain type: unspecified Generalized weakness R53.1 Constipation K59.00 Chronic venous insufficiency I87.2 Depression F32.9 Hypothyroidism E03.9 Paroxysmal atrial fibrillation I48.0 Thoracic aortic aneurysm (TAA) I71.20 Intractable back pain M54.9 Anemia D64.9 Venous thrombosis I82.90 GERD (gastroesophageal reflux disease) K21.9 Complex sleep apnea syndrome G47.31 (1) Chest pain Chest pain type: unspecified Qualified Code(s): R07.9 - Chest pain, unspecified
[2022-05-13] MEDS: WARFARIN SOD 3 MG TAB PO SCH (16:44)
[2022-05-13] MEDS: traZODone HCL 100 MG TAB PO SCH (21:29)
[2022-05-13] MEDS: OLANZapine 5 MG TABLET PO SCH (21:31)
[2022-05-14] MEDS: LEVOTHYROXINE SODIUM 100 MCG TABLET PO SCH (04:51)
[2022-05-14] MEDS: DICLOFENAC SOD 1% GEL 100 GM TUBE EXT SCH ×4 (08:06→20:07)
[2022-05-14] MEDS: FLUTICASONE/VILANTEROL 200/25MCG 14 PUFFS/INHALER INH SCH (08:09)
[2022-05-14] MEDS: LIDOCAINE 5% 1 PATCH TD SCH (08:09)
[2022-05-14] MEDS: POLYETHYLENE (MIRALAX) 17 GM PACK PO SCH ×2 (08:09→20:08)
[2022-05-14 08:43] LABS: INR 1.2 (0.9-1.1); Prothrombin Time 12.2 Seconds (9.0-12.0)
[2022-05-14 08:53] LABS: Creatinine Clr Calc Pharmacy 208.3 ml/min; Est GFR (African American) 141.6 ml/min; Est GFR (Non-African American) 122.2 ml/min
[2022-05-14] MEDS: AMIODARONE 200 MG TAB PO SCH (09:34)
[2022-05-14] MEDS: ESCITALOPRAM OXALATE 20 MG TAB PO SCH (09:34)
[2022-05-14] MEDS: CYANOCOBALAMIN (B-12) 500 MCG TABLET PO SCH (09:34)
[2022-05-14] MEDS: CEFDINIR 300 MG CAP PO SCH ×2 (09:34→20:10)
[2022-05-14] MEDS: MULTIVITAMIN TAB PO SCH (09:34)
[2022-05-14] MEDS: PANTOprazole 40 MG TAB PO SCH ×2 (09:34→20:09)
[2022-05-14] MEDS: DIVALPROEX EXTENDED RELEASE 500 MG TAB PO SCH ×2 (09:35→20:10)
[2022-05-14] MEDS: BACLOFEN 10 MG TAB PO SCH ×3 (09:35→20:10)
[2022-05-14] MEDS: CHOLECALCIFEROL 1,000 UNITS 25 MCG TAB PO SCH (09:35)
[2022-05-14] MEDS: DOCUSATE SODIUM/SENNA 50/8.6MG TAB PO SCH ×2 (09:35→20:09)
--- NOTE | 2022-05-14 11:58 | Hospitalist Progress Note ---
Date of Service May 14, 2022 Assessment & Plan (1) Hematoma: Plan: at left arm at site of previous thrombophlebitis. S/p I&D left arm on April [address] Woodruff. Appreciate orthopedics management. Local care until healed (2) Headache: Plan: Now resolved. Appears to be tension headache related. Cervical trigger points have been injected x5 with a total of 5 cc of 2% lidocaine on 05/12. (3) Pneumonia: Plan: Right lower lobe infiltrate noted on x-ray. He also has bilateral lower lobe atelectasis. Incentive spirometry has helped. He is now on cefdinir orally. Previously on intravenous Rocephin. (4) Orthostatic dizziness: Plan: Resolved (5) Chest pain: Plan: Resolved. No evidence of acute [place] (6) Generalized weakness: Plan: Improving with physical therapy. We will continue with home health at home (7) Constipation: Plan: continue Miralax and senna/docusate bid (8) Chronic venous insufficiency: Plan: Bilateral lower extremities. Supportive care (9) Depression: Plan: stable. Continue Lexapro, trazodone nightly (10) Hypothyroidism: Plan: TSH recently normal. Continue Synthroid 100 mcg daily (11) Paroxysmal atrial fibrillation: Plan: Rate controlled with current medical regiment. Continue Coumadin therapy. (12) Thoracic aortic aneurysm (TAA): Plan: Continued outpatient surveillance. No acute change (13) Intractable back pain: Plan: Chronic back pain with postlaminectomy syndrome of lumbosacral region, with spinal cord stimulator in place with Dilaudid pump. Follows with pain management. Continue usual hydrocodone and baclofen (14) Anemia: Plan: now stable. No sign of GI bleeding. Had EGD/colonoscopy last admission without signs of active bleeding. Lab tests suggestive of anemia of chronic disease. 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 Occurred while on Eliquis. Subsequently switched to warfarin due to concern for recurrent clots and suspected hypercoagulable state. Lupus anticoagulant weak positive from previous admission. Anti-phospholipid abs negative, homocysteine level elevated at 14.4 and had low normal B12 previously. Recommend outpt f/u with Hematology (16) GERD (gastroesophageal reflux disease): Plan: found to have gastritis on EGD last admit. Continue PPI twice daily (17) Complex sleep apnea syndrome: Plan: CPAP at bedtime as needed (18) Acute respiratory failure with hypoxia: Plan: Due to atelectasis. Much improved with addition of incentive spirometry. We will recheck room air resting pulse ox. He may not need oxygen at the time of discharge Plan Anticipate eventual discharge to home with home health services. Admission and Anticipated Discharge Date Admission Date: April 25, 2022 Subjective Alert and oriented. Chest x-ray revealed bilateral atelectasis and he is doing much better with incentive spirometry. Oxygen saturation is now 99% on 2 L. Room air pulse ox will be checked and he may not need home oxygen at discharge. Review of Systems Review of Systems: Constitutional-no fever or chills ENT-no blurred vision, no double vision, no epistaxis, no sore throat Respiratory-no cough, no wheezing, no shortness of breath Cardiac-no palpitations, no chest pain, no syncope GI-no nausea, vomiting, diarrhea, melena, hematochezia -no urinary retention, no urinary incontinence, no dysuria, no hematuria Musculoskeletal-no joint pain, no muscle tenderness Skin-no bruising, no rashes, no pruritus Neuro-no isolated weakness, no paresthesia, no weakness Psych-no depression, no anxiety Physical Exam Physical Exam: General-alert and oriented x3, no fevers, no chills HEENT-head atraumatic and normocephalic, pupils equal and reactive to light, extraocular muscles intact Neck-no lymphadenopathy or thyromegaly, trachea midline Chest-clear to auscultation percussion. No rales wheezing or rhonchi Cardiac-regular rate and rhythm, normal S1 and S2, no murmurs Abdomen-normal bowel sounds, nontender, no hepatosplenomegaly Extremities-no cyanosis, clubbing, or edema. Left arm remains bandaged with extensive bruising from the underlying hematoma Neuro-cranial nerves II through XII intact, motor and sensory function within normal limits, strength symmetrical , no focal deficits Psych-normal affect, normal mood Results & Data Results & Data ([facility]) Vital Signs (Past 12 Hours) Vital Signs Temp Pulse Resp BP Pulse Ox O2 Del Method O2 Flow Rate 05/14/22 09:33 160/76 H 05/14/22 08:18 Nasal Cannula 2 05/14/22 07:29 36.6 C 65 18 134/55 L 99 Nasal Cannula 2 Laboratory Results 05/13/22 07:26 05/14/22 08:01 PG Care Time/CCT Total # of Minutes Spent Total Time Spent with Patient: Total time spent is greater than 50% in coordination of care (as documented) at patient's floor/unit and/or counseling patient: Coding Level of Care Code 09983 Subseq Hosp Care Lvl 3 Diagnoses Hematoma T14.8XXA Headache R51.9 Pneumonia J18.9 Orthostatic dizziness R42 Chest pain R07.9 Chest pain type: unspecified Generalized weakness R53.1 Constipation K59.00 Chronic venous insufficiency I87.2 Depression F32.9 Hypothyroidism E03.9 Paroxysmal atrial fibrillation I48.0 Thoracic aortic aneurysm (TAA) I71.20 Intractable back pain M54.9 Anemia D64.9 Venous thrombosis I82.90 GERD (gastroesophageal reflux disease) K21.9 Complex sleep apnea syndrome G47.31 Acute respiratory failure with hypoxia J96.01 (1) Chest pain Chest pain type: unspecified Qualified Code(s): R07.9 - Chest pain, unspecified
[2022-05-14] MEDS: WARFARIN SOD 3 MG TAB PO SCH (17:27)
[2022-05-14] MEDS: traZODone HCL 100 MG TAB PO SCH (20:08)
[2022-05-14] MEDS: OLANZapine 5 MG TABLET PO SCH (20:11)
[2022-05-15] MEDS: HYDROCODONE/ACETAMOPHEN 5/325MG TAB PO PRN (05:04)
[2022-05-15] MEDS: LEVOTHYROXINE SODIUM 100 MCG TABLET PO SCH (06:12)
[2022-05-15 08:32] LABS: INR 1.3 (0.9-1.1); Prothrombin Time 13.2 Seconds (9.0-12.0)
[2022-05-15] MEDS: BACLOFEN 10 MG TAB PO SCH ×3 (09:12→20:21)
[2022-05-15] MEDS: CYANOCOBALAMIN (B-12) 500 MCG TABLET PO SCH (09:13)
[2022-05-15] MEDS: PANTOprazole 40 MG TAB PO SCH ×2 (09:13→20:22)
[2022-05-15] MEDS: DIVALPROEX EXTENDED RELEASE 500 MG TAB PO SCH ×2 (09:13→20:23)
[2022-05-15] MEDS: AMIODARONE 200 MG TAB PO SCH (09:13)
[2022-05-15] MEDS: DOCUSATE SODIUM/SENNA 50/8.6MG TAB PO SCH ×2 (09:13→20:23)
[2022-05-15] MEDS: ESCITALOPRAM OXALATE 20 MG TAB PO SCH (09:13)
[2022-05-15] MEDS: CEFDINIR 300 MG CAP PO SCH ×2 (09:13→20:22)
[2022-05-15] MEDS: LIDOCAINE 5% 1 PATCH TD SCH (09:14)
[2022-05-15] MEDS: MULTIVITAMIN TAB PO SCH (09:14)
[2022-05-15] MEDS: FLUTICASONE/VILANTEROL 200/25MCG 14 PUFFS/INHALER INH SCH (09:14)
[2022-05-15] MEDS: CHOLECALCIFEROL 1,000 UNITS 25 MCG TAB PO SCH (09:14)
[2022-05-15] MEDS: DICLOFENAC SOD 1% GEL 100 GM TUBE EXT SCH ×4 (09:19→20:22)
[2022-05-15] MEDS: POLYETHYLENE (MIRALAX) 17 GM PACK PO SCH ×2 (10:15→20:21)
[2022-05-15] MEDS: WARFARIN SOD 3 MG TAB PO SCH (16:13)
--- NOTE | 2022-05-15 18:47 | Hospitalist Progress Note ---
Date of Service May 15, 2022 Assessment & Plan (1) Hematoma: Plan: At left arm at site of previous thrombophlebitis. S/p I&D left arm on April [address] Woodruff. Appreciate orthopedics management. Local care until healed (2) Pneumonia: Plan: RLL infiltrate noted on x-ray on 05/13. He also has bilateral lower lobe atelectasis. Incentive spirometry has helped. He is now on cefdinir orally. Previously on intravenous Rocephin. - Get procal and BNP with AM labs to assess other causes. (3) Headache: Plan: Now resolved. Appears to be tension headache related. Cervical trigger points have been injected x5 with a total of 5 cc of 2% lidocaine on 05/12. (4) Orthostatic dizziness: Plan: Resolved (5) Chest pain: Plan: Resolved. No evidence of acute [place] (6) Generalized weakness: Plan: Improving with physical therapy. We will continue with home health at home. (7) Constipation: Plan: continue Miralax and senna/docusate bid (8) Chronic venous insufficiency: Plan: Bilateral lower extremities. Supportive care. (9) Depression: Plan: Stable. - Continue Lexapro, trazodone nightly (10) Hypothyroidism: Plan: TSH recently normal. - Continue Synthroid 100 mcg daily (11) Paroxysmal atrial fibrillation: Plan: Rate controlled with current medical regiment. - Continue Coumadin therapy. (12) Thoracic aortic aneurysm (TAA): Plan: Continued outpatient surveillance. No acute change (13) Intractable back pain: Plan: Chronic back pain with postlaminectomy syndrome of lumbosacral region, with spinal cord stimulator in place with Dilaudid pump. Follows with pain management. Continue usual hydrocodone and baclofen (14) Anemia: Plan: now stable. No sign of GI bleeding. Had EGD/colonoscopy last admission without signs of active bleeding. Lab tests suggestive of anemia of chronic disease. 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 Occurred while on Eliquis. Subsequently switched to warfarin due to concern for recurrent clots and suspected hypercoagulable state. Lupus anticoagulant weak positive from previous admission. Anti-phospholipid abs negative, homocysteine level elevated at 14.4 and had low normal B12 previously. Recommend outpt f/u with Hematology (16) GERD (gastroesophageal reflux disease): Plan: found to have gastritis on EGD last admit. Continue PPI twice daily (17) Complex sleep apnea syndrome: Plan: CPAP at bedtime as needed (18) Acute respiratory failure with hypoxia: Plan: Due to atelectasis. Much improved with addition of incentive spirometry. We will recheck room air resting pulse ox. He may not need oxygen at the time of d ischarge Admission and Anticipated Discharge Date Admission Date: April 25, 2022 Subjective Still feels short of breath today. No major change there though from over the last week. Physical Exam Constitutional: WD/WN, vitals as above Eyes: EOM intact bilaterally; no conjunctival abnormality ENMT: external ear and nose normal, oropharynx normal Neck: trachea midline, no thyromegaly normal visual inspection Respiratory: normal respiratory effort, lungs clear to auscultation no respiratory distress Cardiovascular: RRR, no murmur, no edema Gastrointestinal (Abdomen): Inspection/Auscultation: abdomen normal to inspection; abdomen not distended Musculoskeletal: no cyanosis or clubbing, extremities motor strength 5/5 Skin: no rashes, warm and dry Neurologic: moves all extremities and awake Psychiatric: Orientation: alert, oriented to person and cooperative Results & Data Results & Data ([facility]) Vital Signs (Past 12 Hours) Vital Signs Temp Pulse Resp BP Pulse Ox O2 Del Method O2 Flow Rate 05/15/22 10:00 Nasal Cannula 2 05/15/22 15:36 36.8 C 76 18 178/65 H 95 Nasal Cannula 2 05/15/22 07:57 36.6 C 60 18 142/74 H 95 Nasal Cannula 2 PG Care Time/CCT Total # of Minutes Spent Total Time Spent with Patient: Total time spent is greater than 50% in coordination of care (as documented) at patient's floor/unit and/or counseling patient: Coding Level of Care Code 92105 Subseq Hosp Care Lvl 2 Diagnoses Hematoma T14.8XXA Pneumonia J18.9 Headache R51.9 Orthostatic dizziness R42 Chest pain R07.9 Chest pain type: unspecified Generalized weakness R53.1 Constipation K59.00 Chronic venous insufficiency I87.2 Depression F32.9 Hypothyroidism E03.9 Paroxysmal atrial fibrillation I48.0 Thoracic aortic aneurysm (TAA) I71.20 Intractable back pain M54.9 Anemia D64.9 Venous thrombosis I82.90 GERD (gastroesophageal reflux disease) K21.9 Complex sleep apnea syndrome G47.31 Acute respiratory failure with hypoxia J96.01 (1) Chest pain Chest pain type: unspecified Qualified Code(s): R07.9 - Chest pain, unspecified
[2022-05-15] MEDS: traZODone HCL 100 MG TAB PO SCH (20:21)
[2022-05-15] MEDS: OLANZapine 5 MG TABLET PO SCH (20:22)
[2022-05-16] MEDS: ALBUT/IPRATROP 3MG/0.5MG NEB 3 ML VIAL NEB PRN (04:28)
[2022-05-16] MEDS: LEVOTHYROXINE SODIUM 100 MCG TABLET PO SCH (06:17)
[2022-05-16] MEDS: AMIODARONE 200 MG TAB PO SCH (08:59)
[2022-05-16] MEDS: MULTIVITAMIN TAB PO SCH (08:59)
[2022-05-16] MEDS: DIVALPROEX EXTENDED RELEASE 500 MG TAB PO SCH ×2 (08:59→21:21)
[2022-05-16] MEDS: CHOLECALCIFEROL 1,000 UNITS 25 MCG TAB PO SCH (08:59)
[2022-05-16] MEDS: DOCUSATE SODIUM/SENNA 50/8.6MG TAB PO SCH ×2 (08:59→21:22)
[2022-05-16] MEDS: CYANOCOBALAMIN (B-12) 500 MCG TABLET PO SCH (08:59)
[2022-05-16] MEDS: POLYETHYLENE (MIRALAX) 17 GM PACK PO SCH ×2 (08:59→21:21)
[2022-05-16] MEDS: FLUTICASONE/VILANTEROL 200/25MCG 14 PUFFS/INHALER INH SCH (09:00)
[2022-05-16] MEDS: LIDOCAINE 5% 1 PATCH TD SCH (09:00)
[2022-05-16] MEDS: CEFDINIR 300 MG CAP PO SCH ×2 (09:00→21:21)
[2022-05-16] MEDS: ESCITALOPRAM OXALATE 20 MG TAB PO SCH (09:00)
[2022-05-16] MEDS: PANTOprazole 40 MG TAB PO SCH ×2 (09:00→21:22)
[2022-05-16] MEDS: BACLOFEN 10 MG TAB PO SCH ×3 (09:00→21:21)
[2022-05-16] MEDS: DICLOFENAC SOD 1% GEL 100 GM TUBE EXT SCH ×4 (09:01→21:23)
[2022-05-16 09:04] LABS: Hematocrit (blood only) 32.8 % (40.1-51.0); Hemoglobin 10.6 g/dl (14.0-18.0); Mean Corpuscular Hemoglobin 30.6 pg (25.0-34.0); Mean Corpuscular Hgb Conc 32.3 g/dL (32.0-36.0); Mean Corpuscular Volume 94.8 fL (80.0-100.0); Mean Platelet Volume 9.2 fL (9.4-12.4); Platelet Count 166 K/uL (130-400); RDW Coefficient of Variation 14.6 % (11.5-14.5); RDW Standard Deviation 50.9 fL (36.4-46.3); Red Blood Count 3.46 M/uL (4.63-6.08); White Blood Count 4.24 K/ul (4.8-10.8)
[2022-05-16 09:21] LABS: INR 1.2 (0.9-1.1); Prothrombin Time 13.1 Seconds (9.0-12.0)
[2022-05-16 10:02] LABS: BUN Creatinine Ratio 15.8 (10-20); Calcium 8.5 mg/dl (8.5-10.1); Creatinine Clr Calc Pharmacy 153.5 ml/min; Est GFR (African American) 124.9 ml/min; Est GFR (Non-African American) 107.8 ml/min; Magnesium 1.8 mg/dl (1.7-2.4); Potassium 3.8 mmol/L (3.5-5.1)
[2022-05-16] MEDS ORDERED: OPTIRAY 320 500ml IV ONE (11:25)
--- NOTE | 2022-05-16 11:59 | CT Scan Report ---
CT ANGIOGRAM OF THE CHEST CLINICAL HISTORY: Dyspnea. Atypical chest pain. COMPARISON STUDY: Chest x-ray dated 05/13/2022. Chest CT dated 04/23/2022. TECHNIQUE: Following the IV administration of 120 cc of Optiray 320, CT angiogram of the chest was pe rformed from the upper abdomen to the thoracic inlet utilizing the pulmonary embolus protocol. Images are reviewed in the axial, sagittal, and coronal planes. 3-D MIPS images are created and assessed. I V contrast was administered without complication. A dose lowering technique was utilized adhering to the principles of ALARA. The examination is significantly degraded by streak artifact from the arms which could not be elevated above the chest as well as motion artifact. CT DOSE: 922.82 mGy.cm FINDINGS: Thyroid: Imaged portions of the thyroid gland are normal in size and attenuation. Thoracic aorta: The thoracic aorta is normal in caliber and demonstrates standard 3-vessel arch anato my. No dissection is seen. Pulmonary vasculature: The main pulmonary arteries are dilated suggesting pulmonary artery hypertensi on. There is suboptimal contrast opacification of the pulmonary arteries. There are no filling defect s identified in main or lobar pulmonary branches to suggest central pulmonary embolus. The segmental and subsegmental vessels could not be assessed due to lack of contrast opacification and severe artif act. Heart: The heart is enlarged and without pericardial effusion. Lungs and pleural spaces: Evaluation of the lung parenchyma is significantly degraded by motion artif act. There are small pleural effusions with dependent consolidation. Patchy airspace consolidation is seen in the right upper and right middle lobes. The trachea and central airways appear clear. Mediastinum: There is no mediastinal lymphadenopathy. Daria: Clear. Axillae: There is no axillary lymphadenopathy. Upper abdomen: Left renal calculi are partially visualized and measure up to 13 mm. A small hiatal he rnia is noted. Skeletal structures: The skeletal structures are osteopenic. Degenerative change and scoliosis is not ed in the thoracic spine. Intrathecal lesions and a pain pump catheter are present within the spinal canal. No lytic or blastic bony lesions are seen. IMPRESSION: 1. Significantly streak and motion compromised examination. 2. There is no evidence of central pulmonary embolus in the main or lobar pulmonary arteries. The seg mental and subsegmental vessels could not be assessed. 3. Cardiomegaly. 4. Small pleural effusions with dependent consolidation. This has significantly increased from 2021. Milder patchy consolidation is seen in the right upper and middle lobes. Correlate clinically f or evidence of an infectious/inflammatory pneumonitis and/or mild pulmonary edema. Radiographic follo w-up to resolution is recommended. 5. Left-sided nephrolithiasis. 6. Additional findings as above. ACT 112: Negative or not required by law. Electronically signed by: Davey Trejo M.D. 05/16/2022 11:57 AM
[2022-05-16] MEDS ORDERED: FUROSEMIDE 40 MG/4 ML VIAL IV ONE (12:21)
--- NOTE | 2022-05-16 14:22 | Hospitalist Progress Note ---
Date of Service May 16, 2022 Assessment & Plan (1) Pneumonia: Plan: RLL infiltrate noted on x-ray on 05/13. He also has bilateral lower lobe atelectasis. Incentive spirometry has helped. He is now on cefdinir orally. Previously on intravenous Rocephin. - Procal negatve on 05/16. BNP mildly elevated at 120. CTA chest done on 05/16 for concern for PE as patient had become more hypoxemic: Negative for PE, but noted to have diffuse infiltrates. - Will get RVP to help determine cause of diffuse infiltrates. (2) Hematoma: Plan: At left arm at site of previous thrombophlebitis. S/p I&D left arm on April [address] Woodruff. Appreciate orthopedics management. - Local care until healed. (3) Headache: Plan: Appears to be tension-headache related. Cervical trigger points have been injected x5 with a total of 5 cc of 2% lidocaine on 05/12. - Will trial Voltaren gel which he only tried for about 1 day. (4) Orthostatic dizziness: Plan: Resolved (5) Chest pain: Plan: Resolved. No evidence of acute ND. (6) Generalized weakness: Plan: Improving with physical therapy. We will continue with home health at home. (7) Constipation: Plan: - Continue Miralax and senna/docusate bid (8) Chronic venous insufficiency: Plan: Bilateral lower extremities. - Supportive care. (9) Depression: Plan: Stable. - Continue Lexapro, trazodone nightly (10) Hypothyroidism: Plan: TSH recently normal. - Continue Synthroid 100 mcg daily (11) Paroxysmal atrial fibrillation: Plan: Rate controlled with current medical regiment. - Continue Coumadin therapy. (12) Thoracic aortic aneurysm (TAA): Plan: Continued outpatient surveillance. No acute change (13) Intractable back pain: Plan: Chronic back pain with postlaminectomy syndrome of lumbosacral region, with spinal cord stimulator in place with Dilaudid pump. Follows with pain manageme nt. Continue usual hydrocodone and baclofen (14) Anemia: Plan: now stable. No sign of GI bleeding. Had EGD/colonoscopy last admission without signs of active bleeding. Lab tests suggestive of anemia of chronic disease. 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 Occurred while on Eliquis. Subsequently switched to warfarin due to concern for recurrent clots and suspected hypercoagulable state. Lupus anticoagulant weak positive from previous admission. Anti-phospholipid abs negative, homocysteine level elevated at 14.4 and had low normal B12 previously. Recommend outpt f/u with Hematology (16) GERD (gastroesophageal reflux disease): Plan: found to have gastritis on EGD last admit. Continue PPI twice daily (17) Complex sleep apnea syndrome: Plan: CPAP at bedtime as needed (18) Acute respiratory failure with hypoxia: Plan: Due to atelectasis. Much improved with addition of incentive spirometry. We will recheck room air resting pulse ox. He may not need oxygen at the time of discharge Admission and Anticipated Discharge Date Admission Date: April 25, 2022 Subjective Feels more shortness of breath today. Needed higher dose of O2 as well overnight. Reports no fevers/chills, chest pain, shortness of breath, abdominal pain, nausea, or vomiting. Physical Exam Constitutional: WD/WN, vitals as above Eyes: EOM intact bilaterally; no conjunctival abnormality ENMT: external ear and nose normal, oropharynx normal Neck: trachea midline, no thyromegaly normal visual inspection Respiratory: + tachypneic; no respiratory distress Auscultation: lungs clear to auscultation bilaterally Cardiovascular: RRR, no murmur, no edema Gastrointestinal (Abdomen): Inspection/Auscultation: abdomen normal to inspection; abdomen not distended Musculoskeletal: no cyanosis or clubbing, extremities motor strength 5/5 Skin: no rashes, warm and dry Neurologic: moves all extremities and awake Psychiatric: Orientation: alert, oriented to person and cooperative Results & Data Results & Data ([facility]) Vital Signs (Past 12 Hours) Vital Signs Temp Pulse Resp BP BP Pulse Ox O2 Del Method 05/16/22 12:42 78 20 95 Nasal Cannula 05/16/22 08:45 72 20 94 Nasal Cannula 05/16/22 07:45 36.7 C 69 20 185/71 H 90 Nasal Cannula 05/16/22 06:43 88 L Nasal Cannula 05/16/22 04:28 66 18 91 Nasal Cannula 05/16/22 03:52 179/67 H O2 Flow Rate 05/16/22 12:42 4 05/16/22 08:45 4 05/16/22 07:45 4 05/16/22 06:43 2 05/16/22 04:28 2 05/16/22 03:52 PG Care Time/CCT Total # of Minutes Spent Total Time Spent with Patient: Total time spent is greater than 50% in coordination of care (as documented) at patient's floor/unit and/or counseling patient: Coding Level of Care Code 51624 Subseq Hosp Care Lvl 2 Diagnoses Pneumonia J18.9 Hematoma T14.8XXA Headache R51.9 Orthostatic dizziness R42 Chest pain R07.9 Chest pain type: unspecified Generalized weakness R53.1 Constipation K59.00 Chronic venous insufficiency I87.2 Depression F32.9 Hypothyroidism E03.9 Paroxysmal atrial fibrillation I48.0 Thoracic aortic aneurysm (TAA) I71.20 Intractable back pain M54.9 Anemia D64.9 Venous thrombosis I82.90 GERD (gastroesophageal reflux disease) K21.9 Complex sleep apnea syndrome G47.31 Acute respiratory failure with hypoxia J96.01 (1) Chest pain Chest pain type: unspecified Qualified Code(s): R07.9 - Chest pain, unspecified
[2022-05-16] MEDS ORDERED: WARFARIN SOD 3 MG TAB PO STA (14:30)
[2022-05-16] MEDS: WARFARIN SOD 6 MG TAB PO SCH (15:41)
[2022-05-16 16:26] LABS: Adenovirus PCR Not Detected (NotDetected); Bordetella parapertussis PCR Not Detected (NotDetected); Bordetella pertussis PCR Not Detected (NotDetected); Chlamydia pneumoniae PCR Not Detected (NotDetected); Coronavirus 229E PCR Not Detected (NotDetected); Coronavirus CoV-2 (COVID19)PCR Not Detected (NotDetected); Coronavirus HKU1 PCR Not Detected (NotDetected); Coronavirus NL63 PCR Not Detected (NotDetected); Coronavirus OC43PCR Not Detected (NotDetected); Human Metapneumovirus PCR Not Detected (NotDetected); Influenza A PCR Not Detected (NotDetected); Influenza B PCR Not Detected (NotDetected); Mycoplasma pneumoniae PCR Not Detected (NotDetected); Parainfluenza Virus 1 PCR Not Detected (NotDetected); Parainfluenza Virus 2 PCR Not Detected (NotDetected); Parainfluenza Virus 3 PCR Not Detected (NotDetected); Parainfluenza Virus 4 PCR Not Detected (NotDetected); Respiratory Syncytial VirusPCR Not Detected (NotDetected); Rhinovirus/Enterovirus PCR Not Detected (NotDetected)
[2022-05-16] MEDS: traZODone HCL 100 MG TAB PO SCH (21:22)
[2022-05-16] MEDS: OLANZapine 5 MG TABLET PO SCH (21:22)
[2022-05-16] MEDS: ENOXAPARIN 80 MG/0.8 ML SYR SQ SCH (21:23)
[2022-05-16] MEDS: HYDROCODONE/ACETAMOPHEN 5/325MG TAB PO PRN (21:27)
[2022-05-17] MEDS: HYDROCODONE/ACETAMOPHEN 5/325MG TAB PO PRN ×2 (05:32→20:56)
[2022-05-17] MEDS: LEVOTHYROXINE SODIUM 100 MCG TABLET PO SCH (05:32)
[2022-05-17 07:21] LABS: Hematocrit (blood only) 28.6 % (40.1-51.0); Hemoglobin 9.3 g/dl (14.0-18.0); Mean Corpuscular Hemoglobin 30.5 pg (25.0-34.0); Mean Corpuscular Hgb Conc 32.5 g/dL (32.0-36.0); Mean Corpuscular Volume 93.8 fL (80.0-100.0); Mean Platelet Volume 9.5 fL (9.4-12.4); Platelet Count 141 K/uL (130-400); RDW Standard Deviation 51.8 fL (36.4-46.3); Red Blood Count 3.05 M/uL (4.63-6.08); White Blood Count 3.24 K/ul (4.8-10.8)
[2022-05-17 07:42] LABS: Albumin Globulin Ratio 1.1 (0.9-2); Albumin Level 2.6 gm/dl (3.4-5.0); BUN Creatinine Ratio 20.7 (10-20); Bilirubin,Total 0.3 mg/dl (0.2-1.0); Calcium 7.9 mg/dl (8.5-10.1); Creatinine Clr Calc Pharmacy 150.9 ml/min; Globulin 2.3 gm/dl (2.5-4.0); Magnesium 1.8 mg/dl (1.7-2.4); Potassium 3.7 mmol/L (3.5-5.1); Total Protein 4.9 gm/dl (6.0-8.3)
[2022-05-17] MEDS: DICLOFENAC SOD 1% GEL 100 GM TUBE EXT SCH ×4 (07:55→20:58)
[2022-05-17 07:59] LABS: INR 1.3 (0.9-1.1); Prothrombin Time 13.7 Seconds (9.0-12.0)
[2022-05-17] MEDS: AMIODARONE 200 MG TAB PO SCH (07:59)
[2022-05-17] MEDS: CEFDINIR 300 MG CAP PO SCH (08:00)
[2022-05-17] MEDS: BACLOFEN 10 MG TAB PO SCH ×3 (08:00→20:56)
[2022-05-17] MEDS: CHOLECALCIFEROL 1,000 UNITS 25 MCG TAB PO SCH (08:01)
[2022-05-17] MEDS: DIVALPROEX EXTENDED RELEASE 500 MG TAB PO SCH ×2 (08:01→20:57)
[2022-05-17] MEDS: CYANOCOBALAMIN (B-12) 500 MCG TABLET PO SCH (08:01)
[2022-05-17] MEDS: ESCITALOPRAM OXALATE 20 MG TAB PO SCH (08:02)
[2022-05-17] MEDS: FLUTICASONE/VILANTEROL 200/25MCG 14 PUFFS/INHALER INH SCH (08:02)
[2022-05-17] MEDS: DOCUSATE SODIUM/SENNA 50/8.6MG TAB PO SCH ×2 (08:02→20:58)
[2022-05-17] MEDS: PANTOprazole 40 MG TAB PO SCH ×2 (08:03→20:59)
[2022-05-17] MEDS: MULTIVITAMIN TAB PO SCH (08:03)
[2022-05-17] MEDS: ENOXAPARIN 80 MG/0.8 ML SYR SQ SCH ×2 (08:07→20:58)
[2022-05-17] MEDS: POLYETHYLENE (MIRALAX) 17 GM PACK PO SCH ×2 (08:07→20:57)
[2022-05-17] MEDS: LIDOCAINE 5% 1 PATCH TD SCH (08:10)
[2022-05-17] MEDS: WARFARIN SOD 6 MG TAB PO SCH (16:46)
--- NOTE | 2022-05-17 17:54 | Hospitalist Progress Note ---
Date of Service May 17, 2022 Assessment & Plan (1) Pneumonia: Plan: RLL infiltrate noted on x-ray on 05/13. He also has bilateral lower lobe atelectasis. Incentive spirometry has helped. He is now on cefdinir orally. Previously on intravenous Rocephin. - Procal negatve on 05/16. BNP mildly elevated at 120. CTA chest done on 05/16 for concern for PE as patient had become more hypoxemic: Negative for PE, but noted to have diffuse infiltrates. - Respiratory viral panel on 05/16 was negative. - Feel pneumonia is now fully treated. Will finish abx today. (2) Hematoma: Plan: At left arm at site of previous thrombophlebitis. S/p I&D left arm on April [address] Woodruff. Appreciate orthopedics management. - Local care until healed. (3) Headache: Plan: Appears to be tension-headache related. Cervical trigger points have been injected x5 with a total of 5 cc of 2% lidocaine on 05/12. - Will trial Voltaren gel which he only tried for about 1 day. (4) Orthostatic dizziness: Plan: Resolved (5) Chest pain: Plan: Resolved. No evidence of acute DE. (6) Generalized weakness: Plan: Improving with physical therapy. We will continue with home health at home. (7) Constipation: Plan: - Continue Miralax and senna/docusate bid (8) Chronic venous insufficiency: Plan: Bilateral lower extremities. - Supportive care. (9) Depression: Plan: Stable. - Continue Lexapro, trazodone nightly (10) Hypothyroidism: Plan: TSH recently normal. - Continue Synthroid 100 mcg daily (11) Paroxysmal atrial fibrillation: Plan: Rate controlled with current medical regiment. - Continue Coumadin therapy. (12) Thoracic aortic aneurysm (TAA): Plan: No acute change. - Continued outpatient surveillance. (13) Intractable back pain: Plan: Chronic back pain with postlaminectomy syndrome of lumbosacral region, with spinal cord stimulator in place with Dilaudid pump. Follows with pain management. - Continue usual hydrocodone and baclofen (14) Anemia: Plan: Now stable at ~9.5. No sign of GI bleeding. Had EGD/colonoscopy last admission without signs of active bleeding. Lab tests suggestive of anemia of chronic disease. Peripheral smear interpreted as anemia of chronic disease. - Monitor (15) Venous thrombosis: Plan: Cephalic vein thrombosis which is superficial venous thrombosis. Occurred while on Eliquis. Subsequently switched to warfarin due to concern for recurrent clots and suspected hypercoagulable state. Lupus anticoagulant weak positive from previous admission. Anti-phospholipid abs negative, homocysteine level elevated at 14.4 and had low normal B12 previously. Recommend outpt f/u with Hematology (16) GERD (gastroesophageal reflux disease): Plan: Found to have gastritis on EGD last admit. - Continue PPI twice daily (17) Complex sleep apnea syndrome: Plan: CPAP at bedtime as needed (18) Acute respiratory failure with hypoxia: Plan: Due to atelectasis. Much improved with addition of incentive spirometry. We will recheck room air resting pulse ox. He may not need oxygen at the time of discharge. Admission and Anticipated Discharge Date Admission Date: April 25, 2022 Subjective Doing well today. Breathing well today. Feeling ok. Neck reports as not being too bad. Physical Exam Constitutional: WD/WN, vitals as above Eyes: EOM intact bilaterally; no conjunctival abnormality ENMT: external ear and nose normal, oropharynx normal Neck: trachea midline, no thyromegaly normal visual inspection Respiratory: normal respiratory effort, lungs clear to auscultation + tachypneic; no respiratory distress Auscultation: lungs clear to auscultation bilaterally Cardiovascular: RRR, no murmur, no edema Gastrointestinal (Abdomen): Inspection/Auscultation: abdomen normal to inspection; abdomen not distended Musculoskeletal: no cyanosis or clubbing, extremities motor strength 5/5 Skin: no rashes, warm and dry Neurologic: moves all extremities and awake Psychiatric: Orientation: alert, oriented to person and cooperative Results & Data Results & Data ([facility]) Vital Signs (Past 12 Hours) Vital Signs Temp Pulse Resp BP Pulse Ox O2 Del Method O2 Flow Rate 05/17/22 14:47 36.7 C 76 18 133/72 95 Nasal Cannula 3 05/17/22 07:44 Nasal Cannula 05/17/22 07:29 36.3 C L 60 18 157/81 H 97 Nasal Cannula 4 PG Care Time/CCT Total # of Minutes Spent Total Time Spent with Patient: Total time spent is greater than 50% in coordination of care (as documented) at patient's floor/unit and/or counseling patient: Coding Level of Care Code 74089 Subseq Hosp Care Lvl 2 Diagnoses Pneumonia J18.9 Hematoma T14.8XXA Headache R51.9 Orthostatic dizziness R42 Chest pain R07.9 Chest pain type: unspecified Generalized weakness R53.1 Constipation K59.00 Chronic venous insufficiency I87.2 Depression F32.9 Hypothyroidism E03.9 Paroxysmal atrial fibrillation I48.0 Thoracic aortic aneurysm (TAA) I71.20 Intractable back pain M54.9 Anemia D64.9 Venous thrombosis I82.90 GERD (gastroesophageal reflux disease) K21.9 Complex sleep apnea syndrome G47.31 Acute respiratory failure with hypoxia J96.01 (1) Chest pain Chest pain type: unspecified Qualified Code(s): R07.9 - Chest pain, unspecified
[2022-05-17] MEDS: ALBUT/IPRATROP 3MG/0.5MG NEB 3 ML VIAL NEB PRN (20:06)
[2022-05-17] MEDS: guaiFENesin SUGAR FREE 100 MG/5 ML UDC PO PRN (20:55)
[2022-05-17] MEDS: OLANZapine 5 MG TABLET PO SCH (20:57)
[2022-05-17] MEDS: traZODone HCL 100 MG TAB PO SCH (20:59)
[2022-05-18] MEDS: HYDROCODONE/ACETAMOPHEN 5/325MG TAB PO PRN ×2 (05:23→18:22)
[2022-05-18] MEDS: LEVOTHYROXINE SODIUM 100 MCG TABLET PO SCH (06:06)
[2022-05-18 07:21] LABS: Hematocrit (blood only) 27.3 % (40.1-51.0); Mean Corpuscular Hemoglobin 30.4 pg (25.0-34.0); Mean Corpuscular Volume 92.2 fL (80.0-100.0); Mean Platelet Volume 9.2 fL (9.4-12.4); Platelet Count 136 K/uL (130-400); RDW Coefficient of Variation 14.9 % (11.5-14.5); RDW Standard Deviation 50.3 fL (36.4-46.3); Red Blood Count 2.96 M/uL (4.63-6.08); White Blood Count 3.22 K/ul (4.8-10.8)
[2022-05-18 07:31] LABS: INR 1.5 (0.9-1.1); Prothrombin Time 16.1 Seconds (9.0-12.0)
[2022-05-18 07:43] LABS: Est GFR (African American) 131.8 ml/min; Est GFR (Non-African American) 113.7 ml/min; Magnesium 1.8 mg/dl (1.7-2.4); Potassium 3.6 mmol/L (3.5-5.1)
[2022-05-18] MEDS: ENOXAPARIN 80 MG/0.8 ML SYR SQ SCH ×2 (09:02→20:51)
[2022-05-18] MEDS: LIDOCAINE 5% 1 PATCH TD SCH (09:02)
[2022-05-18] MEDS: ESCITALOPRAM OXALATE 20 MG TAB PO SCH (09:03)
[2022-05-18] MEDS: AMIODARONE 200 MG TAB PO SCH (09:03)
[2022-05-18] MEDS: PANTOprazole 40 MG TAB PO SCH ×2 (09:03→20:58)
[2022-05-18] MEDS: MULTIVITAMIN TAB PO SCH (09:03)
[2022-05-18] MEDS: CHOLECALCIFEROL 1,000 UNITS 25 MCG TAB PO SCH (09:03)
[2022-05-18] MEDS: CYANOCOBALAMIN (B-12) 500 MCG TABLET PO SCH (09:03)
[2022-05-18] MEDS: DOCUSATE SODIUM/SENNA 50/8.6MG TAB PO SCH ×2 (09:03→20:58)
[2022-05-18] MEDS: DICLOFENAC SOD 1% GEL 100 GM TUBE EXT SCH ×4 (09:04→21:01)
[2022-05-18] MEDS: DIVALPROEX EXTENDED RELEASE 500 MG TAB PO SCH ×2 (09:04→20:59)
[2022-05-18] MEDS: POLYETHYLENE (MIRALAX) 17 GM PACK PO SCH ×2 (09:04→20:54)
[2022-05-18] MEDS: BACLOFEN 10 MG TAB PO SCH ×3 (09:04→21:00)
[2022-05-18] MEDS: FLUTICASONE/VILANTEROL 200/25MCG 14 PUFFS/INHALER INH SCH (09:05)
--- NOTE | 2022-05-18 11:17 | Hospitalist Progress Note ---
Date of Service May 18, 2022 Assessment & Plan (1) Acute respiratory failure with hypoxia: Plan: Due to atelectasis and pulmonary edema. Improved on 05/18 after Lasix 40 mg IV x 1 on 05/16. - Resumed home Lasix on 05/18 (2) Headache: Plan: Has elements of migraine & tension headache. reports he has a severe hx of headaches that were bad enough that he would be in bed for at least a week at home. Have tried copious strategies here: * Cervical trigger points have been injected x5 with a total of 5 cc of 2% lidocaine on 05/12. * Voltaren gel * Baclofen * Toradol - Will try magnesium today. Discussed with neurology today and will also double olanzapine & valproic acid doses. (3) Generalized weakness: Plan: Dispo for patient is not clear at this time. He does not work with PT often, mostly citing his headache. He is adamant he will go home. Family hasn't said no, but isn't willing to take him at this time. No clear time frame for discharge. CM has put out referrals, but it's not clear he will go. - Will work with patient, family, and CM as best as I can to get appropriate dispo. (4) Pneumonia: Plan: RLL infiltrate noted on x-ray on 05/13. He also has bilateral lower lobe atelectasis. Incentive spirometry has helped. He is now on cefdinir orally. Previously on intravenous Rocephin. - Procal negatve on 05/16. BNP mildly elevated at 120. CTA chest done on 05/16 for concern for PE as patient had become more hypoxemic: Negative for PE, but no verónica to have diffuse infiltrates. - Respiratory viral panel on 05/16 was negative. - Finished abx on 05/17. Will monitor for fever. (5) Paroxysmal atrial fibrillation: Plan: Rate controlled with current medical regiment. - Continue Coumadin therapy. Warfarin raised from 3 mg to 6 mg on 05/16 as his INR had been sitting at 1.3 for weeks. Today (05/18), INR is 1.5. Will give bolus dose again today, then increase dose tomorrow. (6) Anemia: Plan: Now stable at ~9.5. No sign of GI bleeding. Had EGD/colonoscopy last admission without signs of active bleeding. Lab tests suggestive of anemia of chronic disease. Peripheral smear interpreted as anemia of chronic disease. 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 Occurred while on Eliquis. Subsequently switched to warfarin due to concern for recurrent clots and suspected hypercoagulable state. Lupus anticoagulant weak positive from previous admission. Anti-phospholipid abs negative, homocysteine level elevated at 14.4 and had low normal B12 previously. - Recommend outpt f/u with hematology - As noted in afib, now on increased warfarin and using Lovenox to bridge due to VTE (8) Hematoma: Plan: At left arm at site of previous thrombophlebitis. S/p I&D left arm on April [address] Woodruff. Appreciate orthopedics management. - Local care until healed. Examined on 05/18. Incision site healing well. About half of the Steri-Strips are off. (9) Intractable back pain: Plan: Chronic back pain with post-laminectomy syndrome of lumbosacral region, with spinal cord stimulator in place with Dilaudid pump. Follows with pain manag ement. - Continue usual hydrocodone and baclofen (10) Chronic venous insufficiency: Plan: Bilateral lower extremities. - Supportive care. (11) Depression: Plan: Stable. - Continue Lexapro, trazodone nightly (12) Hypothyroidism: Plan: TSH recently normal. - Continue Synthroid 100 mcg daily (13) Thoracic aortic aneurysm (TAA): Plan: No acute change. - Continued outpatient surveillance. (14) GERD (gastroesophageal reflux disease): Plan: Found to have gastritis on EGD last admit. - Continue PPI twice daily (15) Complex sleep apnea syndrome: Plan: CPAP at bedtime as needed Admission and Anticipated Discharge Date Admission Date: April 25, 2022 Subjective Doing well today. Headache is the same. Not bad in the morning, but worse as the day goes on. Breathing is "about the same." Reports no fevers/chills, chest pain, abdominal pain, nausea, or vomiting. Physical Exam Constitutional: WD/WN, vitals as above Eyes: EOM intact bilaterally; no conjunctival abnormality ENMT: external ear and nose normal, oropharynx normal Neck: trachea midline, no thyromegaly normal visual inspection Respiratory: normal respiratory effort, lungs clear to auscultation + tachypneic; no respiratory distress Auscultation: lungs clear to auscultation bilaterally Cardiovascular: RRR, no murmur, no edema Gastrointestinal (Abdomen): Inspection/Auscultation: abdomen normal to inspection; abdomen not distended Musculoskeletal: no cyanosis or clubbing, extremities motor strength 5/5 Skin: no rashes, warm and dry Neurologic: moves all extremities and awake Psychiatric: Orientation: alert, oriented to person and cooperative Results & Data Results & Data ([facility]) Vital Signs (Past 12 Hours) Vital Signs Temp Pulse Pulse Resp BP Pulse Ox O2 Del Method 05/18/22 07:15 Nasal Cannula 05/18/22 08:23 36.7 C 62 18 165/70 H 95 Nasal Cannula 05/18/22 02:26 36.6 C 72 18 145/85 H 96 Nasal Cannula O2 Flow Rate 05/18/22 07:15 3 05/18/22 08:23 3 05/18/22 02:26 3 PG Care Time/CCT Total # of Minutes Spent Total Time Spent with Patient: Total time spent is greater than 50% in coordination of care (as documented) at patient's floor/unit and/or counseling patient: Coding Level of Care Code 10795 Subseq Hosp Care Lvl 3 Diagnoses Acute respiratory failure with hypoxia J96.01 Headache R51.9 Generalized weakness R53.1 Pneumonia J18.9 Paroxysmal atrial fibrillation I48.0 Anemia D64.9 Venous thrombosis I82.90 Hematoma T14.8XXA Intractable back pain M54.9 Chronic venous insufficiency I87.2 Depression F32.9 Hypothyroidism E03.9 Thoracic aortic aneurysm (TAA) I71.20 GERD (gastroesophageal reflux disease) K21.9 Complex sleep apnea syndrome G47.31
[2022-05-18] MEDS ORDERED: FUROSEMIDE 40 MG/4 ML VIAL IV ONE (11:39)
[2022-05-18] MEDS: MAGNESIUM SULFATE / D5W 1 GM/100 ML BAG IV SCH ×2 (12:25→14:43)
[2022-05-18] MEDS ORDERED: WARFARIN SOD 4 MG TAB PO ONE (16:00)
[2022-05-18] MEDS: WARFARIN SOD 6 MG TAB PO SCH (17:10)
[2022-05-18] MEDS: ALBUT/IPRATROP 3MG/0.5MG NEB 3 ML VIAL NEB PRN (19:23)
[2022-05-18] MEDS: traZODone HCL 100 MG TAB PO SCH (20:56)
[2022-05-18] MEDS: OLANZapine 10 MG TAB PO SCH (20:57)
[2022-05-19] MEDS: LEVOTHYROXINE SODIUM 100 MCG TABLET PO SCH (05:29)
[2022-05-19] MEDS: HYDROCODONE/ACETAMOPHEN 5/325MG TAB PO PRN (05:32)
[2022-05-19] MEDS: AMIODARONE 200 MG TAB PO SCH (08:17)
[2022-05-19] MEDS: FUROSEMIDE 40 MG TAB PO SCH (08:17)
[2022-05-19] MEDS: ESCITALOPRAM OXALATE 20 MG TAB PO SCH (08:18)
[2022-05-19] MEDS: CYANOCOBALAMIN (B-12) 500 MCG TABLET PO SCH (08:18)
[2022-05-19] MEDS: BACLOFEN 10 MG TAB PO SCH ×3 (08:18→21:06)
[2022-05-19] MEDS: MULTIVITAMIN TAB PO SCH (08:18)
[2022-05-19] MEDS: PANTOprazole 40 MG TAB PO SCH ×2 (08:18→21:05)
[2022-05-19] MEDS: DIVALPROEX EXTENDED RELEASE 500 MG TAB PO SCH ×2 (08:19→21:07)
[2022-05-19] MEDS: FLUTICASONE/VILANTEROL 200/25MCG 14 PUFFS/INHALER INH SCH (08:19)
[2022-05-19] MEDS: DOCUSATE SODIUM/SENNA 50/8.6MG TAB PO SCH ×2 (08:19→21:06)
[2022-05-19] MEDS: CHOLECALCIFEROL 1,000 UNITS 25 MCG TAB PO SCH (08:19)
[2022-05-19] MEDS: POLYETHYLENE (MIRALAX) 17 GM PACK PO SCH ×2 (08:20→21:10)
[2022-05-19] MEDS: LIDOCAINE 5% 1 PATCH TD SCH (08:20)
[2022-05-19] MEDS: ENOXAPARIN 80 MG/0.8 ML SYR SQ SCH (08:21)
[2022-05-19] MEDS: DICLOFENAC SOD 1% GEL 100 GM TUBE EXT SCH ×3 (08:21→16:02)
[2022-05-19 09:10] LABS: Hematocrit (blood only) 26.7 % (40.1-51.0); Hemoglobin 8.6 g/dl (14.0-18.0); Mean Corpuscular Hemoglobin 30.1 pg (25.0-34.0); Mean Corpuscular Hgb Conc 32.2 g/dL (32.0-36.0); Mean Corpuscular Volume 93.4 fL (80.0-100.0); Mean Platelet Volume 9.6 fL (9.4-12.4); Platelet Count 133 K/uL (130-400); RDW Coefficient of Variation 14.9 % (11.5-14.5); RDW Standard Deviation 51.2 fL (36.4-46.3); Red Blood Count 2.86 M/uL (4.63-6.08); White Blood Count 2.97 K/ul (4.8-10.8)
[2022-05-19 09:11] LABS: BUN Creatinine Ratio 23.9 (10-20); Calcium 7.7 mg/dl (8.5-10.1); Creatinine Clr Calc Pharmacy 190.2 ml/min; Est GFR (African American) 136.4 ml/min; Est GFR (Non-African American) 117.7 ml/min; INR 2.2 (0.9-1.1); Magnesium 1.9 mg/dl (1.7-2.4); Potassium 3.5 mmol/L (3.5-5.1); Prothrombin Time 22.1 Seconds (9.0-12.0)
[2022-05-19] MEDS: ALBUT/IPRATROP 3MG/0.5MG NEB 3 ML VIAL NEB PRN (12:23)
[2022-05-19] MEDS: WARFARIN SOD 6 MG TAB PO SCH (15:44)
--- NOTE | 2022-05-19 16:52 | Hospitalist Progress Note ---
Date of Service May 19, 2022 Assessment & Plan (1) Acute respiratory failure with hypoxia: Plan: Due to atelectasis and pulmonary edema. Improved on 05/18 after Lasix 40 mg IV x 1 on 05/16. - Resumed home Lasix on 05/18 - Improved shortness of breath without exertion, but then reports he was very short of breath after working with PT. (2) Headache: Plan: Has elements of migraine & tension headache. reports he has a severe hx of headaches that were bad enough that he would be in bed for at least a week at home. Have tried copious strategies here: * Cervical trigger points have been injected x5 with a total of 5 cc of 2% lidocaine on 05/12. * Voltaren gel * Baclofen * Toradol * Magnesium sulfate on 05/18 - No help. - Discussed with neurology on 05/18 and doubled olanzapine & valproic acid doses. He didn't report any pain to the RN, but when I asked, reported he had no change in headache. (3) Generalized weakness: Plan: Dispo for patient is not clear at this time. He does not work with PT often, mostly citing his headache. He is adamant he will go home. Family hasn't said no, but isn't willing to take him at this time. No clear time frame for discharge. CM has put out referrals, but it's not clear he will go. - Will work with patient, family, and CM as best as I can to get appropriate dispo. (4) Pneumonia: Plan: RLL infiltrate noted on x-ray on 05/13. He also has bilateral lower lobe atelectasis. Incentive spirometry has helped. He is now on cefdinir orally. Previously on intravenous Rocephin. - Procal negatve on 05/16. BNP mildly elevated at 120. CTA chest done on 05/16 for concern for PE as patient had become more hypoxemic: Negative for PE, but noted to have diffuse infiltrates. - Respiratory viral panel on 05/16 was negative. - Finished abx on 05/17. Will monitor for fever. (5) Paroxysmal atrial fibrillation: Plan: Rate controlled with current medical regiment. - Continue Coumadin therapy. Warfarin raised from 3 mg to 6 mg on 05/16 as his INR had been sitting at 1.3 for weeks. Today (05/18), INR is 1.5. Will give bolus dose again today, then increase dose tomorrow. (6) Anemia: Plan: Now stable at ~9. No sign of GI bleeding. Had EGD/colonoscopy last admission without signs of active bleeding. Lab tests suggestive of anemia of chronic disease. Peripheral smear interpreted as anemia of chronic disease. 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 Occurred while on Eliquis. Subsequently switched to warfarin due to concern for recurrent clots and suspected hypercoagulable state. Lupus anticoagulant weak positive from previous admission. Anti-phospholipid abs negative, homocysteine level elevated at 14.4 and had low normal B12 previously. - Recommend outpt f/u with hematology - As noted in afib, now on increased warfarin. INR was 2.2 on 05/19. (8) Hematoma: Plan: At left arm at site of previous thrombophlebitis. S/p I&D left arm on April [address] Woodruff. Appreciate orthopedics management. - Local care until healed. Examined on 05/18. Incision site healing well. About half of the Steri-Strips are off. (9) Intractable back pain: Plan: Chronic back pain with post-laminectomy syndrome of lumbosacral region, with spinal cord stimulator in place with Dilaudid pump. Follows with pain manag ement. - Continue usual hydrocodone and baclofen (10) Chronic venous insufficiency: Plan: Bilateral lower extremities. - Supportive care. (11) Depression: Plan: Stable. - Continue Lexapro, trazodone nightly (12) Hypothyroidism: Plan: TSH recently normal. - Continue Synthroid 100 mcg daily (13) Thoracic aortic aneurysm (TAA): Plan: No acute change. - Continued outpatient surveillance. (14) GERD (gastroesophageal reflux disease): Plan: Found to have gastritis on EGD last admit. - Continue PPI twice daily (15) Complex sleep apnea syndrome: Plan: CPAP at bedtime as needed Admission and Anticipated Discharge Date Admission Date: April 25, 2022 Subjective Still with headache. Reports no change. With shortness of breath since working with PT. Physical Exam Constitutional: WD/WN, vitals as above Eyes: EOM intact bilaterally; no conjunctival abnormality ENMT: external ear and nose normal, oropharynx normal Neck: trachea midline, no thyromegaly normal visual inspection Respiratory: normal respiratory effort, lungs clear to auscultation + tachypneic; no respiratory distress Auscultation: lungs clear to auscultation bilaterally Cardiovascular: RRR, no murmur, no edema Gastrointestinal (Abdomen): Inspection/Auscultation: abdomen normal to inspection; abdomen not distended Musculoskeletal: no cyanosis or clubbing, extremities motor strength 5/5 Skin: no rashes, warm and dry Neurologic: moves all extremities and awake Psychiatric: Orientation: alert, oriented to person and cooperative Results & Data Results & Data ([facility]) Vital Signs (Past 12 Hours) Vital Signs Temp Pulse Pulse Resp BP Pulse Ox O2 Del Method 05/19/22 12:24 70 18 96 Room Air 05/19/22 09:37 Nasal Cannula 05/19/22 07:52 36.4 C L 56 L 18 98/56 L 99 Nasal Cannula O2 Flow Rate 05/19/22 12:24 05/19/22 09:37 5 05/19/22 07:52 3 PG Care Time/CCT Total # of Minutes Spent Total Time Spent with Patient: Total time spent is greater than 50% in coordination of care (as documented) at patient's floor/unit and/or counseling patient: Coding Level of Care Code 87216 Subseq Hosp Care Lvl 2 Diagnoses Acute respiratory failure with hypoxia J96.01 Headache R51.9 Generalized weakness R53.1 Pneumonia J18.9 Paroxysmal atrial fibrillation I48.0 Anemia D64.9 Venous thrombosis I82.90 Hematoma T14.8XXA Intractable back pain M54.9 Chronic venous insufficiency I87.2 Depression F32.9 Hypothyroidism E03.9 Thoracic aortic aneurysm (TAA) I71.20 GERD (gastroesophageal reflux disease) K21.9 Complex sleep apnea syndrome G47.31
[2022-05-19] MEDS: OLANZapine 10 MG TAB PO SCH (21:06)
[2022-05-19] MEDS: traZODone HCL 100 MG TAB PO SCH (21:07)
[2022-05-19] MEDS: CAPSAICIN CR 0.075% 60 GM TUBE EXT SCH (21:09)
[2022-05-20] MEDS: LEVOTHYROXINE SODIUM 100 MCG TABLET PO SCH (06:06)
[2022-05-20] MEDS: HYDROCODONE/ACETAMOPHEN 5/325MG TAB PO PRN (06:10)
[2022-05-20 08:59] LABS: Hemoglobin 9.2 g/dl (14.0-18.0); Mean Corpuscular Hemoglobin 30.5 pg (25.0-34.0); Mean Corpuscular Hgb Conc 32.9 g/dL (32.0-36.0); Mean Corpuscular Volume 92.7 fL (80.0-100.0); Mean Platelet Volume 9.7 fL (9.4-12.4); Platelet Count 152 K/uL (130-400); RDW Standard Deviation 51.1 fL (36.4-46.3); Red Blood Count 3.02 M/uL (4.63-6.08); White Blood Count 3.15 K/ul (4.8-10.8)
[2022-05-20 09:11] LABS: INR 2.8 (0.9-1.1); Prothrombin Time 28.2 Seconds (9.0-12.0)
[2022-05-20 09:27] LABS: BUN Creatinine Ratio 24.5 (10-20); Calcium 7.9 mg/dl (8.5-10.1); Creatinine Clr Calc Pharmacy 178.6 ml/min; Est GFR (African American) 132.9 ml/min; Est GFR (Non-African American) 114.7 ml/min; Magnesium 1.7 mg/dl (1.7-2.4); Potassium 3.9 mmol/L (3.5-5.1)
[2022-05-20] MEDS: MULTIVITAMIN TAB PO SCH (09:44)
[2022-05-20] MEDS: BACLOFEN 10 MG TAB PO SCH ×3 (09:44→19:20)
[2022-05-20] MEDS: PANTOprazole 40 MG TAB PO SCH ×2 (09:45→19:21)
[2022-05-20] MEDS: FUROSEMIDE 40 MG TAB PO SCH (09:45)
[2022-05-20] MEDS: CHOLECALCIFEROL 1,000 UNITS 25 MCG TAB PO SCH (09:46)
[2022-05-20] MEDS: AMIODARONE 200 MG TAB PO SCH (09:46)
[2022-05-20] MEDS: CYANOCOBALAMIN (B-12) 500 MCG TABLET PO SCH (09:46)
[2022-05-20] MEDS: DOCUSATE SODIUM/SENNA 50/8.6MG TAB PO SCH ×2 (09:47→19:22)
[2022-05-20] MEDS: ESCITALOPRAM OXALATE 20 MG TAB PO SCH (09:47)
[2022-05-20] MEDS: FLUTICASONE/VILANTEROL 200/25MCG 14 PUFFS/INHALER INH SCH (09:47)
[2022-05-20] MEDS: POLYETHYLENE (MIRALAX) 17 GM PACK PO SCH ×2 (09:49→19:20)
[2022-05-20] MEDS: LIDOCAINE 5% 1 PATCH TD SCH (09:49)
[2022-05-20] MEDS: CAPSAICIN CR 0.075% 60 GM TUBE EXT SCH (09:50)
[2022-05-20] MEDS: DIVALPROEX EXTENDED RELEASE 500 MG TAB PO SCH ×2 (09:51→19:21)
--- NOTE | 2022-05-20 14:35 | Hospitalist Progress Note ---
Date of Service May 20, 2022 Assessment & Plan (1) Acute respiratory failure with hypoxia: Plan: Due to atelectasis and pulmonary edema. Improved on 05/18 after Lasix 40 mg IV x 1 on 05/16. - Resumed home Lasix on 05/18 - Improved shortness of breath without exertion, but then reports he was very short of breath after working with PT. However, this passed, and he is doing well. Will likely need 2L NC on discharge. (2) Headache: Plan: Has elements of migraine & tension headache. reports he has a severe hx of headaches that were bad enough that he would be in bed for at least a week at home. Have tried copious strategies here: * Cervical trigger points have been injected x5 with a total of 5 cc of 2% lidocaine on 05/12. * Voltaren gel * Baclofen * Toradol * Magnesium sulfate on 05/18 - No help. * Capsaicin cream on 05/20. Patient did not tolerate. - Discussed with neurology on 05/18 and doubled olanzapine & valproic acid doses. Seems to be improved at this point. Has not spontaneously mentioned headache to me for 2 days. Does not seem to be limiting him functionally. (3) Generalized weakness: Plan: Patient reports he wants to go home next weekend. I discussed with him extensively how this is not a rehab facility, and he is medically stable to go. He continues to refuse placement and just wants to stay in the hospital until an unspecified time when he's "better." At this point, will discuss with case management as I see no viable discharge options. - Will work with patient, family, and CM as best as I can to get appropriate dispo. (4) Paroxysmal atrial fibrillation: Plan: Rate controlled with current medical regiment. - Continue Coumadin therapy. Warfarin raised from 3 mg to 6 mg on 05/16 as his INR had been sitting at 1.3 for weeks. Today (05/20), INR is 2.8. Given quick jump, dropped dose back to 5 mg PO daily. (5) Pneumonia: Plan: RLL infiltrate noted on x-ray on 05/13. He also has bilateral lower lobe atelectasis. Incentive spirometry has helped. He is now on cefdinir orally. Previously on intravenous Rocephin. - Procal negatve on 05/16. BNP mildly elevated at 120. CTA chest done on 05/16 for concern for PE as patient had become more hypoxemic: Negative for PE, but noted to have diffuse infiltrates. - Respiratory viral panel on 05/16 was negative. - Finished abx on 05/17. Will monitor for fever. (6) Anemia: Plan: Now stable at ~9. No sign of GI bleeding. Had EGD/colonoscopy last admission without signs of active bleeding. Lab tests suggestive of anemia of chronic disease. Peripheral smear interpreted as anemia of chronic disease. 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 Occurred while on Eliquis. Subsequently switched to warfarin due to concern for recurrent clots and suspected hypercoagulable state. Lupus anticoagulant weak positive from previous admission. Anti-phospholipid abs negative, homocysteine level elevated at 14.4 and had low normal B12 previously. - Recommend outpt f/u with hematology - As noted in afib, now on increased warfarin. INR was 2.8 on 05/20. (8) Hematoma: Plan: At left arm at site of previous thrombophlebitis. S/p I&D left arm on April [address] Woodruff. Appreciate orthopedics management. - Local care until healed. Examined on 05/20. Incision site healed. No concerns. (9) Intractable back pain: Plan: Chronic back pain with post-laminectomy syndrome of lumbosacral region, with spinal cord stimulator in place with Dilaudid pump. Follows with pain management. - Continue usual hydrocodone and baclofen (10) Chronic venous insufficiency: Plan: Bilateral lower extremities. - Supportive care. (11) Depression: Plan: Stable. - Continue Lexapro, trazodone nightly (12) Hypothyroidism: Plan: TSH recently normal. - Continue Synthroid 100 mcg daily (13) Thoracic aortic aneurysm (TAA): Plan: No acute change. - Continued outpatient surveillance. (14) GERD (gastroesophageal reflux disease): Plan: Found to have gastritis on EGD last admit. - Continue PPI twice daily (15) Complex sleep apnea syndrome: Plan: CPAP at bedtime as needed Admission and Anticipated Discharge Date Admission Date: April 25, 2022 Subjective Doing well today. Sitting up in a chair. Walked some with physical therapy. Notes that the capsaicin cream was very hot. Physical Exam Constitutional: WD/WN, vitals as above Eyes: EOM intact bilaterally; no conjunctival abnormality ENMT: external ear and nose normal, oropharynx normal Neck: trachea midline, no thyromegaly normal visual inspection Respiratory: normal respiratory effort, lungs clear to auscultation normal respiratory effort; no respiratory distress Auscultation: lungs clear to auscultation bilaterally Cardiovascular: RRR, no murmur, no edema Gastrointestinal (Abdomen): Inspection/Auscultation: abdomen normal to inspection; abdomen not distended Musculoskeletal: no cyanosis or clubbing, extremities motor strength 5/5 Skin: no rashes, warm and dry Neurologic: moves all extremities and awake Psychiatric: Orientation: alert, oriented to person and cooperative Results & Data Results & Data ([facility]) Vital Signs (Past 12 Hours) Vital Signs Temp Pulse Resp BP Pulse Ox O2 Del Method O2 Flow Rate 05/20/22 07:35 36.5 C 60 18 134/75 96 Room Air 05/20/22 08:24 Nasal Cannula 2 PG Care Time/CCT Total # of Minutes Spent Total Time Spent with Patient: Total time spent is greater than 50% in coordination of care (as documented) at patient's floor/unit and/or counseling patient: Coding Level of Care Code 10430 Subseq Hosp Care Lvl 3 Diagnoses Acute respiratory failure with hypoxia J96.01 Headache R51.9 Generalized weakness R53.1 Paroxysmal atrial fibrillation I48.0 Pneumonia J18.9 Anemia D64.9 Venous thrombosis I82.90 Hematoma T14.8XXA Intractable back pain M54.9 Chronic venous insufficiency I87.2 Depression F32.9 Hypothyroidism E03.9 Thoracic aortic aneurysm (TAA) I71.20 GERD (gastroesophageal reflux disease) K21.9 Complex sleep apnea syndrome G47.31
[2022-05-20] MEDS: WARFARIN SOD 5 MG TAB PO SCH (15:56)
[2022-05-20] MEDS: traZODone HCL 100 MG TAB PO SCH (19:21)
[2022-05-20] MEDS: OLANZapine 10 MG TAB PO SCH (19:22)
[2022-05-20] MEDS: NYSTATIN CR 15 GM TUBE EXT SCH (19:23)
[2022-05-21] MEDS: HYDROCODONE/ACETAMOPHEN 5/325MG TAB PO PRN ×3 (06:11→22:48)
[2022-05-21] MEDS: LEVOTHYROXINE SODIUM 100 MCG TABLET PO SCH (06:12)
[2022-05-21 07:46] LABS: Hematocrit (blood only) 30.2 % (40.1-51.0); Hemoglobin 9.7 g/dl (14.0-18.0); Mean Corpuscular Hemoglobin 29.9 pg (25.0-34.0); Mean Corpuscular Hgb Conc 32.1 g/dL (32.0-36.0); Mean Corpuscular Volume 93.2 fL (80.0-100.0); Mean Platelet Volume 9.3 fL (9.4-12.4); Platelet Count 143 K/uL (130-400); RDW Coefficient of Variation 14.9 % (11.5-14.5); RDW Standard Deviation 51.5 fL (36.4-46.3); Red Blood Count 3.24 M/uL (4.63-6.08); White Blood Count 2.84 K/ul (4.8-10.8)
[2022-05-21 07:56] LABS: INR 2.9 (0.9-1.1); Prothrombin Time 28.7 Seconds (9.0-12.0)
[2022-05-21] MEDS: CAPSAICIN CR 0.075% 60 GM TUBE EXT SCH (07:59)
[2022-05-21 08:36] LABS: BUN Creatinine Ratio 20.8 (10-20); Calcium 8.1 mg/dl (8.5-10.1); Creatinine Clr Calc Pharmacy 182.3 ml/min; Est GFR (Non-African American) 115.6 ml/min; Magnesium 1.7 mg/dl (1.7-2.4); Potassium 3.8 mmol/L (3.5-5.1)
[2022-05-21] MEDS: DOCUSATE SODIUM/SENNA 50/8.6MG TAB PO SCH ×2 (10:19→20:05)
[2022-05-21] MEDS: CYANOCOBALAMIN (B-12) 500 MCG TABLET PO SCH (10:19)
[2022-05-21] MEDS: MULTIVITAMIN TAB PO SCH (10:20)
[2022-05-21] MEDS: CHOLECALCIFEROL 1,000 UNITS 25 MCG TAB PO SCH (10:20)
[2022-05-21] MEDS: DIVALPROEX EXTENDED RELEASE 500 MG TAB PO SCH ×2 (10:20→20:04)
[2022-05-21] MEDS: PANTOprazole 40 MG TAB PO SCH ×2 (10:20→20:05)
[2022-05-21] MEDS: AMIODARONE 200 MG TAB PO SCH (10:20)
[2022-05-21] MEDS: BACLOFEN 10 MG TAB PO SCH ×3 (10:21→20:05)
[2022-05-21] MEDS: FLUTICASONE/VILANTEROL 200/25MCG 14 PUFFS/INHALER INH SCH (10:21)
[2022-05-21] MEDS: FUROSEMIDE 40 MG TAB PO SCH (10:21)
[2022-05-21] MEDS: ESCITALOPRAM OXALATE 20 MG TAB PO SCH (10:22)
[2022-05-21] MEDS: LIDOCAINE 5% 1 PATCH TD SCH (10:23)
[2022-05-21] MEDS: POLYETHYLENE (MIRALAX) 17 GM PACK PO SCH ×2 (10:24→20:03)
[2022-05-21] MEDS: NYSTATIN CR 15 GM TUBE EXT SCH ×3 (10:27→20:06)
[2022-05-21] MEDS: WARFARIN SOD 5 MG TAB PO SCH (17:22)
--- NOTE | 2022-05-21 17:36 | Hospitalist Progress Note ---
Date of Service May 21, 2022 Assessment & Plan (1) Acute respiratory failure with hypoxia: Plan: Due to atelectasis and pulmonary edema. Improved on 05/18 after Lasix 40 mg IV x 1 on 05/16. - Resumed home Lasix on 05/18 - Improved shortness of breath without exertion, but then reports he was very short of breath after working with PT. However, this passed, and he is doing well. Will likely need 2L NC on discharge. (2) Headache: Plan: Has elements of migraine & tension headache. reports he has a severe hx of headaches that were bad enough that he would be in bed for at least a week at home. Have tried copious strategies here: * Cervical trigger points have been injected x5 with a total of 5 cc of 2% lidocaine on 05/12. * Voltaren gel * Baclofen * Toradol * Magnesium sulfate on 05/18 - No help. * Capsaicin cream on 05/20. Patient did not tolerate. - Discussed with neurology on 05/18 and doubled olanzapine & valproic acid doses. Seems to be improved at this point. Has not spontaneously mentioned headache to me for 2 days. Does not seem to be limiting him functionally. Can offer short course of steroids if he presents this as a barrier to going home. (3) Generalized weakness: Plan: Patient reports he wants to go home next weekend. I discussed with him extensively how this is not a rehab facility, and he is medically stable to go. He continues to refuse placement and just wants to stay in the hospital until an unspecified time when he's "better." At this point, will discuss with case management as I see no viable discharge options. - Will work with patient, family, and CM as best as I can to get appropriate dispo. (4) Paroxysmal atrial fibrillation: Plan: Rate controlled with current medical regiment. - Continue Coumadin therapy. Warfarin raised from 3 mg to 6 mg on 05/16 as his INR had been sitting at 1.3 for weeks. Today (05/21), INR is 2.9. (5) Pneumonia: Plan: RLL infiltrate noted on x-ray on 05/13. He also has bilateral lower lobe atelectasis. Incentive spirometry has helped. He is now on cefdinir orally. Previously on intravenous Rocephin. - Procal negatve on 05/16. BNP mildly elevated at 120. CTA chest done on 05/16 for concern for PE as patient had become more hypoxemic: Negative for PE, but noted to have diffuse infiltrates. - Respiratory viral panel on 05/16 was negative. - Finished abx on 05/17. Will monitor for fever. (6) Anemia: Plan: Now stable at ~9. No sign of GI bleeding. Had EGD/colonoscopy last admission without signs of active bleeding. Lab tests suggestive of anemia of chronic disease. Peripheral smear interpreted as anemia of chronic disease. 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 Occurred while on Eliquis. Subsequently switched to warfarin due to concern for recurrent clots and suspected hypercoagulable state. Lupus anticoagulant weak positive from previous admission. Anti-phospholipid abs negative, homocysteine level elevated at 14.4 and had low normal B12 previously. - Recommend outpt f/u with hematology - As noted in afib, now on increased warfarin. INR was 2.9 on 05/21. (8) Hematoma: Plan: At left arm at site of previous thrombophlebitis. S/p I&D left arm on April [address] Woodruff. Appreciate orthopedics management. - Local care until healed. Examined on 05/20. Incision site healed. No concerns. (9) Intractable back pain: Plan: Chronic back pain with post-laminectomy syndrome of lumbosacral region, with spinal cord stimulator in place with Dilaudid pump. Follows with pain management. - Continue usual hydrocodone and baclofen (10) Chronic venous insufficiency: Plan: Bilateral lower extremities. - Supportive care. (11) Depression: Plan: Stable. - Continue Lexapro, trazodone nightly (12) Hypothyroidism: Plan: TSH recently normal. - Continue Synthroid 100 mcg daily (13) Thoracic aortic aneurysm (TAA): Plan: No acute change. - Continued outpatient surveillance. (14) GERD (gastroesophageal reflux disease): Plan: Found to have gastritis on EGD last admit. - Continue PPI twice daily (15) Complex sleep apnea syndrome: Plan: CPAP at bedtime as needed Admission and Anticipated Discharge Date Admission Date: April 25, 2022 Subjective Stable today. Still with headache, but doing better. Had a brief episode of panic or shortness of breath this morning when waking up, but otherwise resolved without intervention. Physical Exam Constitutional: WD/WN, vitals as above Eyes: EOM intact bilaterally; no conjunctival abnormality ENMT: external ear and nose normal, oropharynx normal Neck: trachea midline, no thyromegaly normal visual inspection Respiratory: normal respiratory effort, lungs clear to auscultation normal respiratory effort and + tachypneic; no respiratory distress Auscultation: lungs clear to auscultation bilaterally Cardiovascular: RRR, no murmur, no edema Gastrointestinal (Abdomen): Inspection/Auscultation: abdomen normal to inspection; abdomen not distended Musculoskeletal: no cyanosis or clubbing, extremities motor strength 5/5 Skin: no rashes, warm and dry Neurologic: moves all extremities and awake Psychiatric: Orientation: alert, oriented to person and cooperative Results & Data Results & Data ([facility]) Vital Signs (Past 12 Hours) Vital Signs Temp Pulse Resp BP Pulse Ox O2 Del Method O2 Flow Rate 05/21/22 15:45 36.5 C 79 16 146/73 H 96 Nasal Cannula 3 05/21/22 07:23 36.4 C L 63 17 137/73 95 Nasal Cannula 3 05/21/22 07:35 Nasal Cannula PG Care Time/CCT Total # of Minutes Spent Total Time Spent with Patient: Total time spent is greater than 50% in coordination of care (as documented) at patient's floor/unit and/or counseling patient: Coding Level of Care Code 77292 Subseq Hosp Care Lvl 2 Diagnoses Acute respiratory failure with hypoxia J96.01 Headache R51.9 Generalized weakness R53.1 Paroxysmal atrial fibrillation I48.0 Pneumonia J18.9 Anemia D64.9 Venous thrombosis I82.90 Hematoma T14.8XXA Intractable back pain M54.9 Chronic venous insufficiency I87.2 Depression F32.9 Hypothyroidism E03.9 Thoracic aortic aneurysm (TAA) I71.20 GERD (gastroesophageal reflux disease) K21.9 Complex sleep apnea syndrome G47.31
[2022-05-21] MEDS: traZODone HCL 100 MG TAB PO SCH (20:04)
[2022-05-21] MEDS: OLANZapine 10 MG TAB PO SCH (20:04)
[2022-05-21] MEDS ORDERED: OPTIRAY 320 500ml IV ONE (22:42)
[2022-05-22] MEDS: LEVOTHYROXINE SODIUM 100 MCG TABLET PO SCH (06:18)
--- NOTE | 2022-05-22 07:12 | CT Scan Report ---
HEAD CT NONCONTRAST CT DOSE: 1952.70 mGy.cm HISTORY: Chronic headache. weakness TECHNIQUE: Multiaxial CT images of the head were performed without the use of intravenous contrast. A utomated exposure control was utilized for this study. A dose lowering technique was utilized adheri ng to the principles of ALARA. Comparison: None. Findings: Suboptimal positioning and motion artifact. The paranasal sinuses and mastoid air cells are clear. The calvarium and skull base are intact. The ventricles and sulci are within normal limits. T here is no mass, hematoma, midline shift, or acute infarct. Impression: Motion artifact. No definite acute intracranial abnormality. ACT 112: Negative or not required by law. Electronically signed by: Darian Wiseman M.D. 05/22/2022 7:11 AM
--- NOTE | 2022-05-22 07:39 | CT Scan Report ---
HEAD CTA HISTORY: Chronic headache TECHNIQUE: Multiaxial CT images of the head were performed following the intravenous administration o f contrast to evaluate the major cerebral vessels. Maximum intensity projection images were also obta ined. A dose lowering technique was utilized adhering to the principles of ALARA. COMPARISON: Head CT 05/21/2022 FINDINGS: There is no mass, hematoma, midline shift, or acute infarct. Visualized intracranial mba intern al carotid arteries, distal vertebral arteries, and basilar artery are widely patent. There is no sig nificant stenosis, occlusion, or aneurysm seen within the bilateral ACAs, MCAs, or panel beater. There is a s everely hypoplastic distal left vertebral artery which is not well visualized. The basilar artery is hypoplastic and there are bilateral posterior circulations noted. These are considered to be no rmal variants. The major dural venous sinuses are patent. Mild calcified plaque within the bilateral carotid siphons. IMPRESSION: No significant stenosis, occlusion, or aneurysm within the [place] of [place]. ACT 112: Negative or not required by law. Electronically signed by: Darian Wiseman M.D. 05/22/2022 7:38 AM
[2022-05-22 07:58] LABS: INR 3.1 (0.9-1.1); Prothrombin Time 31.5 Seconds (9.0-12.0)
[2022-05-22] MEDS: HYDROCODONE/ACETAMOPHEN 5/325MG TAB PO PRN (08:36)
[2022-05-22] MEDS: FLUTICASONE/VILANTEROL 200/25MCG 14 PUFFS/INHALER INH SCH (08:37)
[2022-05-22] MEDS: FUROSEMIDE 40 MG TAB PO SCH (08:38)
[2022-05-22] MEDS: ESCITALOPRAM OXALATE 20 MG TAB PO SCH (08:38)
[2022-05-22] MEDS: MULTIVITAMIN TAB PO SCH (08:38)
[2022-05-22] MEDS: DOCUSATE SODIUM/SENNA 50/8.6MG TAB PO SCH (08:39)
[2022-05-22] MEDS: CYANOCOBALAMIN (B-12) 500 MCG TABLET PO SCH (08:39)
[2022-05-22] MEDS: CHOLECALCIFEROL 1,000 UNITS 25 MCG TAB PO SCH (08:39)
[2022-05-22] MEDS: BACLOFEN 10 MG TAB PO SCH ×2 (08:40→13:42)
[2022-05-22] MEDS: PANTOprazole 40 MG TAB PO SCH (08:40)
[2022-05-22] MEDS: DIVALPROEX EXTENDED RELEASE 500 MG TAB PO SCH (08:41)
[2022-05-22] MEDS: AMIODARONE 200 MG TAB PO SCH (08:41)
[2022-05-22] MEDS: LIDOCAINE 5% 1 PATCH TD SCH (08:42)
[2022-05-22] MEDS: NYSTATIN CR 15 GM TUBE EXT SCH ×2 (08:42→13:42)
[2022-05-22] MEDS: POLYETHYLENE (MIRALAX) 17 GM PACK PO SCH (10:01)
[2022-05-22] MEDS: WARFARIN SOD 5 MG TAB PO SCH (17:01)
--- NOTE | 2022-05-22 20:33 | Discharge Summary ---
Date of Service May 22, 2022 Admission HPI Per Admitting Provider Thom is a 66-year-old male with a past medical history of hypertension, prediabetes, hypothyroidism, depression, insomnia, chronic back pain with intrathecal pump, BPH who presents with chest pain Recently discharged 04/18/2022 Feels weak, short of breath, chest pain, and deconditioned since dc 5 days ago. Tachypneic and difficulty ambulating more than 30 feet in room. Recommended for admission for additional eval of weakness and possible rehab. CTA: No evidence of PE. Low lung volumes. Interval improvement of prior right pleural effusion. Stable mediastinal lymph nodes. No acute findings. CTA/P: Suboptimal due to metallic artifact but without acute findings, left- sided nephrolithiasis is appreciated CXR: No change, atelectasis versus pneumonia. CTA as above. Hemoglobin 13.3, potassium 3.4, creatinine with normal baseline and admitting creatinine 0.62 High-sensitivity troponin 7.2, EKG poor quality but sinus with right bundle with comparable morphology to comparison on 04/15, no ST segment changes PCR/flu/RSV negative UA uninfected appearing INR 1.6, patient is on warfarin since discharge Patient seen at the bedside with his present. He reports that he has felt like he is not recovered well, did okay at home for about a day but then progressively continued to be weak, had difficulty ambulating, tired, and achy particularly in his ribs which is worse when he coughs frustrated, reports he has continued to have a cough and when he coughs it hurts his lower rib borders. Reports he just feels generally achy including the chest, ribs, and abdomen. [place] CT does not show any evidence of blood clots, and his troponin is normal patient feels this is also somewhat frustrating as there is not things to immediately fix. Notes that he has felt weaker and just not right. Denies fever/chills/sweats. In the bedside with his present. He notes that he has chronic tingling which is slightly worse in his right foot, and has intermittent tingling in his thigh since having a laminectomy and cage placed for lumbar decompression in the . Notes that this has not changed recently, but the pain in his lower ribs is new. Medical History: Reviewed Medications: Reviewed Surgical History: Reviewed Allergies: Reviewed Social History: Reviewed Code Status: Reviewed Principal Diagnosis hematoma, headache Discharge Exam General he is awake and alert pleasant no distress. HEENT normocephalic atraumatic mucous membranes moist. Breathing unlabored no accessory muscle use good effort. Skin shows no rashes no pallor or icterus. Neuro without focal deficits. Left arm with much less bruising and edema than when I last saw him. Skin otherwise without rashes pallor or icterus Discharge Data Allergies Allergy/AdvReac Type Severity Reaction Status Date / Time Penicillins Allergy Unknown Rash Verified 04/23/22 15:38 sumatriptan [From Imitrex] Allergy Rash Verified 04/23/22 15:38 Consultations 04/23/22 18:48 ED Decision to Admit Stat 04/25/22 17:53 Consult Orthopedic Surgery Routine 04/27/22 12:53 Consult Anesthesiology Routine 05/01/22 18:59 Consult Pain Management Routine 05/06/22 16:43 Consult Neurology Routine Procedures Performed Operation Date: 04/28/22 07:30 Actual Procedures p Incision and Drainage Left Arm(Left) - Juan Diego Woodruff MD Ordered Studies 04/23/22 16:01 CT abd pelvis IV con only Stat CT angio chest PE protocol Stat 04/25/22 17:48 CT arm [CT forearm LT wo con] Routine 05/01/22 09:13 CT head/brain wo con Urgent 05/08/22 13:18 US carotid doppler BI Routine 05/08/22 17:30 CT cervical spine wo con Routine CT head/brain wo con Routine 05/16/22 09:07 CT angio chest PE protocol Urgent 05/21/22 17:56 CT angio head w con Routine 05/21/22 21:53 CT head/brain wo con Urgent Hospital Course (1) Acute respiratory failure with hypoxia: (1) Acute respiratory failure with hypoxia: Plan: Due to atelectasis and pulmonary edema. Improved on 05/18 after Lasix 40 mg IV x 1 on 05/16. - Resumed home Lasix on 05/18 - Improved shortness of breath without exertion, but then reports he was very short of breath after working with PT. However, this passed, and he is doing well. Will need 2 L with exertionset up. (2) Headache: Plan: Has elements of migraine & tension headache. reports he has a severe hx of headaches that were bad enough that he would be in bed for at least a week at home. Have tried copious strategies here: * Cervical trigger points have been injected x5 with a total of 5 cc of 2% lidocaine on 05/12. OMT for several days prior to the trigger point injections * Voltaren gel * Baclofen * Toradol * Magnesium sulfate on 05/18 - No help. * Capsaicin cream on 05/20. Patient did not tolerate. * Discussed with patient that more movement at home likely to be beneficial at this point (3) Generalized weakness: Plan: Does not want placement, would like to go home, is reticent about going home at the same time. Safe/stable for home. (4) Paroxysmal atrial fibrillation: Plan: Rate controlled, anticoagulated. Continue Coumadin. INR today 3.1Next INR in 2-3 days (5) Pneumonia: Plan: RLL infiltrate noted on x-ray on 05/13. He also has bilateral lower lobe atelectasis. Incentive spirometry has helped. He is now on cefdinir orally. Previously on intravenous Rocephin. - Procal negatve on 05/16. BNP mildly elevated at 120. CTA chest done on 05/16 for concern for PE as patient had become more hypoxemic: Negative for PE, but noted to have diffuse infiltrates. - Respiratory viral panel on 05/16 was negative. - Finished abx on 05/17. (6) Anemia: Plan: Now stable. No sign of GI bleeding. Had EGD/colonoscopy last admission without signs of active bleeding. Lab tests suggestive of anemia of chronic disease. Peripheral smear interpreted as anemia of chronic disease. 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 Occurred while on Eliquis. Subsequently switched to warfarin due to concern for recurrent clots and suspected hypercoagulable state. Lupus anticoagulant weak positive from previous admission. Anti-phospholipid abs negative, homocysteine level elevated at 14.4 and had low normal B12 previously. - Recommend outpt f/u with hematology - As noted in afib, therapeutic again on warfarin (8) Hematoma: Plan: At left arm at site of previous thrombophlebitis. S/p I&D left arm on April [address] Woodruff. Appreciate orthopedics management. - Local care until healed. Examined on 12/17. Incision site healed. No concerns. (9) Intractable back pain: Plan: Chronic back pain with post-laminectomy syndrome of lumbosacral region, with spinal cord stimulator in place with Dilaudid pump. Follows with pain management. - Continue usual hydrocodone and baclofen (10) Chronic venous insufficiency: Plan: Bilateral lower extremities. - Supportive care. (11) Depression: Plan: Stable. - Continue Lexapro, trazodone nightly (12) Hypothyroidism: Plan: TSH recently normal. - Continue Synthroid 100 mcg daily (13) Thoracic aortic aneurysm (TAA): Plan: No acute change. - Continued outpatient surveillance. (14) GERD (gastroesophageal reflux disease): Plan: Found to have gastritis on EGD last admit. - Continue PPI twice daily (15) Complex sleep apnea syndrome: Plan: CPAP at bedtime as needed Total Time Total Time Spent Total Time Spent (In Minutes): <30 Discharge Plan Discharge Items Patient Disposition: Home - Self-Care Reason For Visit: FATIGUE, SHORTNESS OF BREATH Discharge Diagnosis: Shortness of breath Activity: Resume your previous activity Non-emergency contact: Primary Care Provider Call non-emergency contact if: you have any medication questions Follow-up/Referrals: Felix Reyes MD [Primary Care Provider] - Iliana Rome MD [Physician] - (Please follow up with Dr. Rome or Dr. Thompson for your headaches.) Benita Garcia PA-C [Physician Cost Estimating Clerk] - 06/12/22 1:30 pm Diet: Heart Healthy Addtl Attending Provider Instructions: Mr. Choe, You were in the hospital for an extended duration, largely due to your left arm hematoma and shortness of breath. A long-standing headache also caused you lots of problems. You are doing well overall. I know you have concerns about going home, but I think you are doing as well as we can get you, and now you need to get stronger. to clarify with medications - initially dr lockwood had sent an Rx for a medication called olanzapine, but after further discussion, the concern was that the sedation it could cause might be more problematic than the benefit to headaches/anxiety. we changed the order and sent the change to the pharmacy, but in case that message doesn't get received, please do not start the olanzapine. Use oxygen at a setting of 2L with exertion. over time, with strengthening and conditioning, as well as time to clear the pneumonia (often that takes a few weeks even after the antibiotics have killed the bacteria) the goal will be to be able to get rid of the oxygen entirely. your INR today was 3.1; have your next INR checked sunday or and follow directions from there Addtl Manager Technical Services Provider Instructions: Orthopedic Discharge Instructions: WBAT/activities as tolerated with left upper extremity May keep padded dressing on left elbow as needed for comfort. FELIX bandage left arm as needed for compression/swelling. Allowed to use left arm for light daily activities. No strenuous lifting, pushing, pulling with left arm. Full range of motion allowed to left arm/elbow. Follow up as scheduled with [facility], Please call our office with any questions or concerns at [phone]. Pending Studies at Discharge: No Stand-Alone Forms: My [facility] Favor, Smoking Cessation Medications and DC Order Prescriptions: New divalproex 500 mg Tablet Extended Release 24 Hr 1,000 mg PO BID Qty: 120 0RF lidocaine 5 % Adhesive Patch,Medicated 2 patch transdermal QAM Qty: 30 0RF Rx Instructions: Put on ribs or painful spots on back. Continued multivitamin tablet 1 tab PO DAILY hydrocodone-acetaminophen 5-325 mg tablet 1 tab PO BID PRN (Reason: break through pain) Qty: 60 0RF Rx Instructions: ONGOING THERAPY escitalopram oxalate [Lexapro] 20 mg tablet 20 mg PO DAILY Narcan 4 mg/actuation spray,non-aerosol 4 mg intranasal Q2M PRN (Reason: opioid overdose) Qty: 2 0RF Rx Instructions: spray 1 dose into ONE nostril; alternate nostrils w each dose until help arrives baclofen 10 mg tablet 10 mg PO TID Qty: 30 0RF furosemide 40 mg tablet 40 mg PO DAILY Qty: 90 3RF trazodone 50 mg tablet 100 mg PO HS 90 Days Qty: 180 1RF levothyroxine 100 mcg tablet 100 mcg PO QAM Qty: 90 3RF fluticasone propion-salmeterol [Wixela Inhub] 500-50 mcg/dose blister with device 1 inh inhalation BID albuterol sulfate [ProAir HFA] 90 mcg/actuation HFA aerosol inhaler 2 puff inhalation Q6H PRN (Reason: Shortness Of Breath) cholecalciferol (vitamin D3) 1,000 unit (25 mcg) tablet 1,000 unit PO DAILY warfarin 5 mg Tablet 5 mg PO DAILY@1600 Qty: 30 0RF Protocol: Dose Management Condition: Sunday Dose/Route: 7.5 mg Instruction: 1.5 x 5 mg tablets Condition: Sunday Dose/Route: 7.5 mg Instruction: 1.5 x 5 mg tablets Condition: Sunday Dose/Route: 7.5 mg Instruction: 1.5 x 5 mg tablets Condition: Sunday Dose/Route: 7.5 mg Instruction: 1.5 x 5 mg tablets Condition: Dose/Route: 7.5 mg Instruction: 1.5 x 5 mg tablets Condition: Sunday Dose/Route: 7.5 mg Instruction: 1.5 x 5 mg tablets Condition: Sunday Dose/Route: 7.5 mg Instruction: 1.5 x 5 mg tablets Protocol Text: Adjustment Start Date: Sunday04/21/22 INR Value: 1.2 INR Date: 04/21/22 Recheck Date: 04/24/22 amiodarone 200 mg Tablet 200 mg PO DAILY Qty: 30 0RF pantoprazole 40 mg Tablet,Delayed Release (Dr/Ec) 40 mg PO BID Qty: 60 0RF sennosides-docusate sodium [Senokot-S] 8.6-50 mg Tablet 1 tab PO BID Qty: 60 0RF cyanocobalamin (vitamin B-12) 1,000 mcg capsule 1,000 mcg PO DAILY Qty: 30 0RF Rx Instructions: OTC polyethylene glycol 3350 8.5 gram powder in packet 17 gm PO BID Qty: 72 0RF Discharge Orders: Discharge Order (Routine); Ordered 05/22/22 Ordered By: Deuce Eubanks Admission Data Admit Date/Time: 04/25/22 17:31 Attending Provider: Deuce Eubanks Admit Provider: Franklin العراقي Primary Care Provider: Felix Reyes Other Providers: Alex Rivera at [facility] ; Franklin العراقي ; Franklin Holley ; Esha Chavez ; [facility] ; Kaden Thompson Other Interventions: Discharge Summary Assessment (RN) Last Done: 05/22/22 18:55 Coding Level of Care Code D/C DAY MANAGEMENT <30 MINS Diagnoses Acute respiratory failure with hypoxia J96.01
[2022-05-31 07:31] LABS: ALC (manual) 1.32 K/uL (1.2-3.4)
[2022-05-31 07:32] LABS: ANC (manual) 0.98 K/uL (1.4-6.5)
== END 2022-05-22 20:28 | disposition home or self-care (01) | DRG 987 ==
LOC: ED 14:58 → 3N 14:58 → SUATTDRO 19:32 → 3N 20:41 → SUATTDRO 04-25 17:31
DX: I82.612 Acute embolism and thrombosis of superficial veins of left upper extremity; T79.A12A Traumatic compartment syndrome of left upper extremity, initial encounter; E03.9 Hypothyroidism, unspecified; Z96.82 Presence of neurostimulator; J98.11 Atelectasis; M48.061 Spinal stenosis, lumbar region without neurogenic claudication; I71.60 Thoracoabdominal aortic aneurysm, without rupture, unspecified; G43.909 Migraine, unspecified, not intractable, without status migrainosus; D64.9 Anemia, unspecified; M79.81 Nontraumatic hematoma of soft tissue; G47.00 Insomnia, unspecified; M96.1 Postlaminectomy syndrome, not elsewhere classified; G44.89 Other headache syndrome; J18.9 Pneumonia, unspecified organism; Z88.0 Allergy status to penicillin; R53.1 Weakness; G44.209 Tension-type headache, unspecified, not intractable; E72.11 Homocystinuria; Z79.01 Long term (current) use of anticoagulants; R73.03 Prediabetes; G47.39 Other sleep apnea; I10 Essential (primary) hypertension; M41.9 Scoliosis, unspecified; S50.12XA Contusion of left forearm, initial encounter; N40.0 Benign prostatic hyperplasia without lower urinary tract symptoms; F32.A Depression, unspecified; K21.9 Gastro-esophageal reflux disease without esophagitis; I87.2 Venous insufficiency (chronic) (peripheral); J96.01 Acute respiratory failure with hypoxia; R31.9 Hematuria, unspecified; I48.0 Paroxysmal atrial fibrillation; M94.0 Chondrocostal junction syndrome [Tietze]; F11.20 Opioid dependence, uncomplicated

== ENCOUNTER 2025-02-28 12:32 | Inpatient (IN) ==
--- NOTE | 2025-02-28 13:10 | Emergency Department Note ---
Impression & Plan Cellulitis of left lower extremity, Chronic venous stasis dermatitis, Fall, Anticoagulant long-term use, Back pain, Abrasion of forehead ED Provider Note Provider: Suleiman Crockett MD CHIEF COMPLAINT: Fall HISTORY OF PRESENT ILLNESS: Patient is a 69-year-old gentleman past medical history including chronic venous stasis, Potts's esophagus, paroxysmal atrial fibrillation on warfarin, BPH, prior back surgery with implanted pain pump, hypertension, polyneuropathy presenting here today after a fall that occurred on . Evidently fell sometime morning from the van at home. He is unsure exactly how he fell. States he Sunday felt dizzy and then fallen. Has fallen before in the past. States that family was able to assist him inside and he was feeling actually okay yesterday on Sunday. This morning quite sore complaining of some headache as well as some pain of the mid to right lower back as well as some left ankle and calf pain. Denies any further falls. Did have breakfast this morning. Denies significant neck pain or chest pain or breathing difficulty. Difficulty ambulating due to pain. States his left foot and ankle are red which is not typical. Does have chronic scaling and stasis changes to his legs that are unchanged. Denies any nausea. Denies new numbness or tingling. PAST MEDICAL HISTORY: As noted above MEDICATIONS: Reviewed home medications specifically includes warfarin SOCIAL HISTORY: Resides at home PHYSICAL EXAM: GENERAL: alert and oriented in no acute distress on stretcher Head: normocephalic with the 2 x 3 cm area of abrasion over the right forehead. EYES: No injection, discharge or icterus. PERRL, EOMI. NECK: Trachea midline. Supple without midline cervical tenderness ENT: Mucous membranes pink and moist. Pharynx without erythema or exudate. LUNGS: Airway patent. No retractions. Breath sounds clear w HEART: Regular rate and rhythm. No chest wall tenderness ABDOMEN: Soft and non-tender, without guarding or rebound. BACK: Lower thoracic to lumbar midline tenderness with healed prior surgical scar no step-offs noted, right SI joint tenderness and some right flank tenderness SKIN: Acyanotic, warm, dry, scattered skin tags and moles with chronic stasis changes and lower extremity changes below. EXTREMITIES: Without swelling or tenderness of the upper extremities. Some slight tenderness of the right knee calf and ankle but significant tenderness of the left ankle and dorsal foot region. No obvious deformities but bilateral chronic stasis changes. 2+ edema on the left and trace on the right. Redness and erythema around the left ankle without obvious wound but a lot of chronic scaling and stasis changes noted. NEUROLOGICAL: Moves all extremities. No aphasia. No facial droop or slurred speech. Able to transition from wheelchair to bed slowly. Ambulatory with significant assistance EK bpm. Normal sinus rhythm right bundle branch block. No PVC. No acute ST segment elevation with a QTc of 511. CONTINUOUS CARDIAC MONITORING: was ordered and showed a heart rate of 70s to 80s bpm in normal sinus rhythm PDMP was checked without noted issue. Implantable hydromorphone pump. GCS 15. Patient's laboratory studies and imaging reviewed. Differential includes Fracture, dislocation, contusion, intra-abdominal, pneumothorax, intrathoracic, intracranial, neurologic, compartment syndrome, rhabdomyolysis, as well as other pathologies. IMPRESSION/MEDICAL DECISION MAKING: ATLS primary and secondary survey completed. Primary complaints are some head pain as well as pain in the mid to right lower back as well as some left calf to ankle pain and redness. Is on warfarin. Unclear exactly how he fell. EKG obtained without significant arrhythmia. INR checked given his warfarin usage. Chest x-ray, pelvis x-ray, left ankle x-ray obtained. CT scans ordered to look for bleeding or other traumatic injury such as fracture. Given some fentanyl here for pain. Basic blood work is checked. No obvious significant deformities noted or large wounds. Do question if there could be a possibly developing cellulitis left foot and ankle given the redness here. Forehead abrasion was cleaned with chlorhexidine here without signs of infection at this time. Nexus negative doubt cervical spine injury upon initial evaluation at 1248 no cervical collar was placed. Blood work here without significant anemia leukocytosis. No significant electrolyte abnormality or signs of new renal dysfunction. LFTs and lactate reassuring. CK not significantly elevated and doubt rhabdomyolysis. No clinical evidence of compartment syndrome. Chest x- ray, pelvis x-ray, left ankle x-ray per my review interpretation without new acute traumatic injuries. Chronically elevated left hemidiaphragm and right hilar fullness as well as implanted paper (back surgery is noted. Radiology reports reviewed as well. CT of the head per radiology no acute traumatic injury or bleed reported. CT of the cervical spine per radiology no acute traumatic injury reported. CT of the chest abdomen pelvis per radiology no acute traumatic bleeding with a nonobstructive left-sided kidney stone. Does not match with pain and again not obstructing. CT lumbar spine per radiology without definite fracture or injury. Troponin does return mildly with a 29.8 question more demand situation as he he does not have active chest pain. Procalcitonin is elevated 4.45. Blood cultures are sent. Will cover empirically with cefepime and vancomycin for antibiotic coverage. Do believe left lower extremity is the source. Urinalysis not impressive. Discussed the patient staying for antibiotic therapy given the significantly procalcitonin is limited ambulation given the pain he is experiencing. He was in agreement. Hospitalist team was consulted. DIAGNOSIS: Fall, long-term anticoagulation, left lower extremity cellulitis, back pain, forehead abrasion DISPOSITION: Hospitalist will evaluate Patient was agreeable with this plan. Past Med/Surg History Problem List (Updated 02/28/25 @ 14:54 by Suleiman Crockett M.D.) Abrasion of forehead (Acute) Back pain (Acute) Anticoagulant long-term use (Acute) Fall (Acute) Cellulitis of left lower extremity (Acute) Right knee pain Chronic radicular lumbar pain Cervical radiculopathy Bilateral nephrolithiasis Carpal tunnel syndrome of right wrist HILTON (dyspnea on exertion) On amiodarone therapy Idiopathic polyneuropathy Gross hematuria Tremor Subjective memory complaints Vitamin D deficiency Hypogonadism male Hypertension (Chronic) Depression (Chronic) Chronic venous stasis dermatitis (Chronic) Hypothyroidism (Chronic) Lumbar stenosis (Chronic) Kyphoscoliosis (Chronic) Osteoporosis (Chronic) Presence of intrathecal pump Opioid dependence in controlled environment (Chronic) Keke's thyroiditis Low testosterone Low libido Erectile dysfunction Insomnia Sleep apnea Complex sleep apnea syndrome Traumatic open wound of right lower leg with delayed healing Chronic venous insufficiency (Acute) Postlaminectomy syndrome of lumbosacral region Migraine BPH (benign prostatic hyperplasia) Paroxysmal atrial fibrillation Thoracic aortic aneurysm (TAA) dilation of the ascending thoracic aorta measures up to 4.5 cm at the level of the main pulmonary artery Irregular Z line of esophagus shelter current use of anticoagulants with INR goal of 2.0-3.0 Generalized weakness Anemia Pneumonia Barretts esophagus Prediabetes Left nephrolithiasis Microscopic hematuria Fatigue Medical History Bilateral nephrolithiasis Upper respiratory tract infection due to COVID-19 virus Venous stasis ulcer of right ankle Intractable back pain Venous thrombosis Constipation GERD (gastroesophageal reflux disease) Acute thrombosis of cephalic vein Pneumonia New onset atrial fibrillation Sacroiliitis Lower extremity venous stasis Testicular hernia history of History of broken collarbone Surgical History History of elbow surgery Status post hip surgery Status post insertion of spinal cord stimulator Encounter for post-sterilization vasoplasty S/P hernia repair History of appendectomy Previous back surgery Family History Mother Colitis Alzheimer disease Brother Colitis Hypertension Heart disease Sister Hypertension Father Hypertension Prostate cancer Myocardial infarction Denies family history of Ovarian cancer Coronary heart disease Breast cancer Colorectal cancer Social History Smoking Status: Never smoker Second Hand Exposure: Yes; Do You Dip or Chew Tobacco: No; Hx Alcohol Use: No Hx Substance Use: No Preferred Language: Armenian Communication Ability: Effective Visual Impairment: Limited Hearing Ability: Use of Hearing Aid Customer Expert Required: No Beliefs That Will Affect Care: None marital status: Current Living Situation: Spouse and Family current occupational status: employed 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 Feels Safe at Home: Yes Childhood Exposure to Second-Hand Smoke: No Diet: regular caffeine: Yes Dental Care, Regularly: Yes Physical Activity Frequency: Daily Seatbelt Use: always Sunscreen Use: Yes Assistive Devices: Cane, Scooter/Electric Scooter and Walker Allergies Allergies Allergy/AdvReac Type Severity Reaction Status Date / Time acetaminophen [From Vicodin] Allergy Severe Migraine Verified 02/17/25 09:08 Penicillins Allergy Unknown Rash Verified 02/17/25 09:08 sumatriptan [From Imitrex] Allergy Rash Verified 02/17/25 09:08 Home Meds Home Medications Medication Instructions Recorded Confirmed diclofenac sodium 1 % topical gel 2 g topical DAILY PRN Pain 09/20/22 02/28/25 ferrous sulfate 325 mg (65 mg 325 mg PO DAILY 12/22/22 02/28/25 iron) tablet (Feosol) hydromorphone 50 mg/50 mL (1 See Rx Instructions continuous 09/20/24 09/27/25 mg/mL) in 0.9 % sod.chloride IV subcutaneous infusion UD PRN Pain pump resv calcium carb-ergocalciferol (vit 1 tab PO DAILY 05/15/24 02/28/25 D2) 600 mg calcium-200 unit tablet levothyroxine 150 mcg tablet 150 mcg PO 6XWK 12/16/24 02/28/25 warfarin 5 mg tablet 5 mg PO UD 01/16/25 02/28/25 cyanocobalamin (vitamin B-12) 0 mcg PO DAILY 02/28/25 02/28/25 1,000 mcg capsule hydrocodone 5 mg-acetaminophen 325 1 tab PO BID PRN break through pain 02/28/25 02/28/25 mg tablet lidocaine 5 % topical patch 1 patch topical DAILY 02/28/25 02/28/25 miconazole nitrate 2 % topical 1 applic topical BID 02/28/25 02/28/25 powder multivitamin with minerals 1 cap PO DAILY 02/28/25 02/28/25 polyethylene glycol 3350 8.5 gram 17 gm PO DAILY 02/28/25 02/28/25 oral powder packet prednisone 20 mg tablet 20 mg PO .COMPLEX for 10 days 02/28/25 02/28/25 Previous Rx's Medication Instructions Recorded escitalopram oxalate 20 mg tablet 20 mg PO DAILY #90 tabs 06/27/22 (Lexapro) furosemide 40 mg tablet 40 mg PO DAILY #90 tabs 03/20/24 pantoprazole 40 mg tablet,delayed 40 mg PO DAILY #90 tabs 05/23/24 release baclofen 10 mg tablet 10 mg PO TID PRN muscle spasm #30 07/03/24 tabs naloxone 4 mg/actuation nasal 4 mg intranasal Q2M PRN opioid 07/08/24 spray (Narcan) overdose #2 ea amiodarone 200 mg tablet 100 mg (1/2 x 200 mg) PO DAILY #90 07/28/24 tabs lisinopril 5 mg tablet 5 mg PO DAILY #100 tabs 10/06/24 gabapentin 400 mg capsule 400 mg PO TID #90 caps 11/24/24 testosterone 2 pump topical DAILY #75 grams 12/16/24 trazodone 50 mg tablet 100 mg (2 x 50 mg) PO HS 90 days 12/31/24 #180 tabs tadalafil 5 mg tablet 5 mg PO Q3D #10 tabs 01/05/25 Results & Data (ED) Vital Signs Vital Signs - 24 hr 02/28/25 12:34 02/28/25 12:45 02/28/25 12:47 Temperature 36.8 C 36.8 C Temperature Source Temporal Artery Scan Pulse Rate 82 79 81 Pulse Rate [Left Apical] Respiratory Rate 18 22 Respiratory Effort / Characteristics Non-Labored Respiratory Depth Normal Respiratory Pattern Regular Blood Pressure 108/57 L 138/74 Blood Pressure [Left Arm] Blood Pressure [Right Arm] Blood Pressure Mean 74 Blood Pressure Mean [Left Arm] Blood Pressure Mean [Right Arm] Pulse Oximetry 97 96 Oxygen Delivery Method Room Air Room Air Oxygen Flow Rate 0 Sepsis Recent Fever Within 48 Hours No Sepsis New/Unexplained Change in Mental Status N/A Sepsis Action Taken by Nursing No Action Required 02/28/25 13:00 02/28/25 14:03 02/28/25 14:30 Temperature Temperature Source Pulse Rate 78 Pulse Rate [Left Apical] 78 74 Respiratory Rate 22 20 16 Respiratory Effort / Characteristics Non-Labored Spontaneous Non-Labored Spontaneous Respiratory Depth Normal Normal Respiratory Pattern Regular Regular Blood Pressure 130/76 Blood Pressure [Left Arm] 129/75 Blood Pressure [Right Arm] 150/71 H Blood Pressure Mean 94 Blood Pressure Mean [Left Arm] 93 Blood Pressure Mean [Right Arm] 97 Pulse Oximetry 95 96 96 Oxygen Delivery Method Room Air Room Air Room Air Oxygen Flow Rate Sepsis Recent Fever Within 48 Hours Sepsis New/Unexplained Change in Mental Status Sepsis Action Taken by Nursing 02/28/25 15:06 Temperature Temperature Source Pulse Rate 78 Pulse Rate [Left Apical] Respiratory Rate 20 Respiratory Effort / Characteristics Respiratory Depth Respiratory Pattern Blood Pressure 139/77 Blood Pressure [Left Arm] Blood Pressure [Right Arm] Blood Pressure Mean 97 Blood Pressure Mean [Left Arm] Blood Pressure Mean [Right Arm] Pulse Oximetry 95 Oxygen Delivery Method Room Air Oxygen Flow Rate Sepsis Recent Fever Within 48 Hours Sepsis New/Unexplained Change in Mental Status Sepsis Action Taken by Nursing Laboratory Data 02/28/25 13:02 02/28/25 13:02 Lab Results 02/28/25 02/28/25 02/28/25 Range/Units 13:02 13:09 13:52 WBC 6.29 (4.8-10.8) K/ul RBC 4.16 L (4.70-6.10) M/uL Hgb 13.2 L (14.0-18.0) g/dl POC Hgb 14.6 (14.0-18.0) g/dl Hct 39.9 L (42.0-52.0) % POC Hct 43 (42-52) % MCV 95.9 (80.0-100.0) fL MCH 31.7 (25.0-34.0) pg MCHC 33.1 (32.0-36.0) g/dL RDW Std Deviation 57.6 H (36.4-46.3) fL RDW Coeff of Kj 16.3 H (11.5-14.5) % Plt Count 142 (130-400) K/uL MPV 9.6 (9.4-12.4) fL Immature Gran % (Auto) 0.2 % Neut % (Auto) 78.1 % Lymph % (Auto) 10.3 % [place] % (Auto) 9.1 % Eos % (Auto) 2.1 % Baso % (Auto) 0.2 % Neut # (Auto) 4.92 (1.40-6.50) K/uL Lymph # (Auto) 0.65 L (1.20-3.40) K/uL [place] # (Auto) 0.57 (0.11-0.59) K/uL Eos # (Auto) 0.13 (0.00-0.50) K/uL Baso # (Auto) 0.01 (0.00-0.20) K/uL Immature Gran # (Auto) 0.01 (0.01-0.20) K/uL PT 27.2 H (9.0-12.0) Seconds INR 2.7 H (0.9-1.1) APTT 46 H (21-31) Seconds PTT Ratio 1.7 POC Sodium 139 (135-144) mmol/L Sodium 139 (136-145) mmol/L POC Potassium 3.4 (3.3-5.0) mmol/L Potassium 3.5 (3.5-5.1) mmol/L POC Chloride 96 L (101-112) mmol/L Chloride 101 (98-107) mmol/L Carbon Dioxide 35 H (21-32) mmol/L POC Total CO2 29 (24-31) mmol/L Anion Gap 3 (3-11) POC Anion Gap 18.0 (16-25) mmol/L POC BUN 14 (7-18) mg/dl BUN 15 (6-23) mg/dl Creatinine 0.81 (0.6-1.4) mg/dl POC Creatinine 0.9 (0.6-1.3) mg/dl Est Cr Clr Drug Dosing Not Reportable eGFR 96.04 BUN/Creatinine Ratio 18.5 (10-20) Glucose 102 H (70-99(Fasting)) mg/dl POC Glucose (other) 99 (70-99) mg/dl Lactate 2.0 (0.4-2.0) mmol/L Calcium 8.8 (8.6-10.3) mg/dl POC Ioniz Calcium Familia 1.15 (1.12-1.32) mmol/l Total Bilirubin 1.0 (0.2-1.0) mg/dl AST 29 (13-39) U/L ALT 22 (7-52) U/L Alkaline Phosphatase 54 (34-104) U/L Total Creatine Kinase 275 H (30-223) U/L Troponin I High Sens 29.8 H (0-20) pg/ml Total Protein 6.2 (6.0-8.3) gm/dl Albumin 3.6 (3.4-5.0) gm/dl Globulin 2.6 (2.5-4.0) gm/dl Albumin/Globulin Ratio 1.4 (0.9-2) Lipase 6 L (11-82) U/L Procalcitonin 4.45 H (0-0.5) ng/ml Urine Color Yellow Urine Appearance Clear (Clear) Urine pH 8.0 H (4.5-7.5) Ur Specific [place] 1.013 (1.000-1.030) Urine Protein Negative (Negative) Urine Glucose (UA) Negative (Negative) Urine Ketones Negative (Negative) Urine Blood 3+ H (Negative) Urine Nitrite Negative (Negative) Urine Bilirubin Negative (Negative) Urine Urobilinogen Positive H (Negative) Ur Leukocyte Esterase Negative (Negative) Urine WBC (Auto) 0-5 (0-5) /hpf Urine RBC (Auto) >20 H (0-2) /hpf U Hyaline Cast (Auto) 0-2 (0-2) /lpf U Epithel Cells (Auto) 0-2 (0-2) /hpf Urine Bacteria (Auto) None Seen (None Seen) Urine Comment Administered Medications Vancomycin HCl 2,000 mg/ (Sodium Chloride) 540 mls @ 200 mls/hr IV NOW ONE Stop: 02/28/25 16:33 Last Admin: 02/28/25 14:07 Dose: 200 mls/hr Documented By: LUCIANO Discontinued Medications Fentanyl Citrate (Fentanyl Citrate Pf 100 Mcg/2 Ml Vial) 50 mcg IV NOW STA Stop: 02/28/25 12:51 Last Admin: 02/28/25 13:09 Dose: 50 mcg Documented By: LUCIANO Cefepime HCl (Maxipime 2000mg) 2,000 mg in 20 mls @ 5 mls/min IV NOW STA; Protocol Stop: 02/28/25 13:55 Last Admin: 02/28/25 14:07 Dose: 5 mls/min Documented By: LUCIANO Sodium Chloride (Nss) 250 mls @ 999 mls/hr IV .Q16M ONE Stop: 02/28/25 14:07 Last Admin: 02/28/25 14:07 Dose: 999 mls/hr Documented By: LUCIANO Ioversol (Optiray 320 100ml) 94 ml IV ONCE ONE Stop: 02/28/25 13:56 Last Admin: 02/28/25 13:55 Dose: 94 ml Documented By: EDK Imaging Data Radiologist's Impression: Abdomen/Pelvis CT 02/28/25 12:49 EXAM: CT Chest Abdomen and Pelvis With Intravenous Contrast INDICATION: Trauma. TECHNIQUE: Axial computed tomography images of the chest, abdomen and pelvis with intravenous contrast. Sagittal and coronal reformatted images were created and reviewed. This CT exam was performed using one or more of the following dose reduction techniques: automated exposure control, adjustment of the mA and/or kV according to patient size, and/or use of iterative reconstruction technique. CONTRAST: 94 ml of Optiray 320 was administered intravenously. COMPARISON: No relevant prior studies available. FINDINGS: Limitations: None. CHEST: Lungs and pleural spaces: No abnormality noted. No mass. No consolidation. No significant effusion. No pneumothorax. Heart: Enlarged heart. No pericardial effusion. Mediastinum: No abnormality noted. Thyroid: No abnormality noted. ABDOMEN: Liver: No abnormality noted. Gallbladder and bile ducts: No calcified stones or surrounding fluid. No ductal dilation. Pancreas: Homogeneous enhancement. No mass, inflammation or ductal dilation. Spleen: No significant abnormality noted. Adrenals: No significant abnormality noted. Kidneys and ureters: There is an 8 x 11 mm nonobstructing left kidney stone. The right kidney appears normal. Stomach and bowel: No distension or mucosal thickening. No inflammation noted. PELVIS: Appendix: No findings to suggest acute appendicitis. Bladder: No filling defects to suggest mass or large stone. No inflammation. Reproductive: No significant abnormality noted. CHEST, ABDOMEN and PELVIS: Intraperitoneal space: No free air. No significant fluid collection. Retroperitoneal space: No abnormality noted. No fluid collection. Bones/joints: Marked kyphoscoliosis. No fracture noted. Diffuse moderate degenerative changes present. Soft tissues: No significant abnormality noted. Vasculature: No abnormality noted. No aortic aneurysm. Lymph nodes: No enlarged lymph nodes. Tubes, lines and devices: Posterior L4-S1 fusion hardware intact. Dorsal column electrode present. IMPRESSION: 1. Study is limited by severe kyphoscoliosis. No traumatic change in the chest, abdomen or pelvis identified. 2. There is an 8 x 11 mm nonobstructing left kidney stone. ACT 112: N/A Electronically signed by Florecita Bangura 02-28-2025 2:09 PM Ankle X-Ray 02/28/25 12:49 EXAM: Radiographs of the Right Ankle 3 Views INDICATION: Trauma TECHNIQUE: AP, lateral and oblique views obtained. COMPARISON: No relevant prior studies available. FINDINGS: Limitations: None. Bones/joints: The bones are diffusely demineralized. There is calcification of the Achilles tendon toward the insertion. There is mild plantar calcaneal spurring. Minimal spurring at the tip of the fibula and medial malleolus. No definite fracture. Ankle mortise symmetric. Soft tissues: Generalized soft tissue swelling noted. No soft tissue gas collection or radiopaque foreign body. IMPRESSION: Soft tissue swelling. No acute osseous abnormality. ACT 112: N/A Electronically signed by Florecita Bangura 02-28-2025 13:[address] 02/28/25 12:49 EXAM: CT Head and Cervical Spine Without Intravenous Contrast INDICATION: Trauma TECHNIQUE: Axial computed tomography images of the head/brain and cervical spine without intravenous contrast. Sagittal and coronal reformatted images were created and reviewed. This CT exam was performed using one or more of the following dose reduction techniques: automated exposure control, adjustment of the mA and/or kV according to patient size, and/or use of iterative reconstruction technique. COMPARISON: CT head 05/21/2022 FINDINGS: Limitations: None. Brain and extra-axial spaces: There is age appropriate cortical atrophy and chronic ischemic periventricular white matter hypodensity. No acute infarct, hemorrhage or mass noted. Sinuses: No layering fluid in the visualized portions of the paranasal sinuses. Mastoid air cells: No mastoid effusion. Orbits: No significant abnormality noted. Vertebrae: Spinal evaluation limited by scoliosis. The bones are generally demineralized. There is diffuse disc space narrowing and facet arthrosis. No visible fracture. Soft tissues: No significant abnormality noted. Vasculature: No acute abnormality noted. Lung apices: No significant abnormality noted. Pleural space: No visualized pleural effusion or pneumothorax. IMPRESSION: 1. Cerebral atrophy. No acute changes. 2. Limited cervical spine assessment due to his scoliosis. No visible fracture. ACT 112: N/A Electronically signed by Florecita Bangura 02-28-2025 2:[address] 02/28/25 12:49 EXAM: CT Chest Abdomen and Pelvis With Intravenous Contrast INDICATION: Trauma. TECHNIQUE: Axial computed tomography images of the chest, abdomen and pelvis with intravenous contrast. Sagittal and coronal reformatted images were created and reviewed. This CT exam was performed using one or more of the following dose reduction techniques: automated exposure control, adjustment of the mA and/or kV according to patient size, and/or use of iterative reconstruction technique. CONTRAST: 94 ml of Optiray 320 was administered intravenously. COMPARISON: No relevant prior studies available. FINDINGS: Limitations: None. CHEST: Lungs and pleural spaces: No abnormality noted. No mass. No consolidation. No significant effusion. No pneumothorax. Heart: Enlarged heart. No pericardial effusion. Mediastinum: No abnormality noted. Thyroid: No abnormality noted. ABDOMEN: Liver: No abnormality noted. Gallbladder and bile ducts: No calcified stones or surrounding fluid. No ductal dilation. Pancreas: Homogeneous enhancement. No mass, inflammation or ductal dilation. Spleen: No significant abnormality noted. Adrenals: No significant abnormality noted. Kidneys and ureters: There is an 8 x 11 mm nonobstructing left kidney stone. The right kidney appears normal. Stomach and bowel: No distension or mucosal thickening. No inflammation noted. PELVIS: Appendix: No findings to suggest acute appendicitis. Bladder: No filling defects to suggest mass or large stone. No inflammation. Reproductive: No significant abnormality noted. CHEST, ABDOMEN and PELVIS: Intraperitoneal space: No free air. No significant fluid collection. Retroperitoneal space: No abnormality noted. No fluid collection. Bones/joints: Marked kyphoscoliosis. No fracture noted. Diffuse moderate degenerative changes present. Soft tissues: No significant abnormality noted. Vasculature: No abnormality noted. No aortic aneurysm. Lymph nodes: No enlarged lymph nodes. Tubes, lines and devices: Posterior L4-S1 fusion hardware intact. Dorsal column electrode present. IMPRESSION: 1. Study is limited by severe kyphoscoliosis. No traumatic change in the chest, abdomen or pelvis identified. 2. There is an 8 x 11 mm nonobstructing left kidney stone. ACT 112: N/A Electronically signed by Florecita Bangura 02-28-2025 2:09 PM Chest X-Ray 02/28/25 12:49 EXAM: Radiograph of the Chest 1 View INDICATION: Trauma TECHNIQUE: Frontal view of the chest. COMPARISON: 07/17/2022 FINDINGS: Lungs and pleural spaces: Minimal atelectasis in the lung bases. No pleural effusion or pneumothorax. Heart: Stable large cardiac shadow. Mediastinum: Normal contour. Bones/joints: No fracture, erosion or dislocation. Soft tissues: No abnormality noted. No radiopaque foreign body noted. Tubes, lines and devices: Intrathecal catheter terminates in the mid thoracic spine unchanged. Upper abdomen: No abnormality noted. IMPRESSION: Minimal basilar atelectasis. ACT 112: N/A Electronically signed by Florecita Bangura 02-28-2025 13:[address] 02/28/25 12:49 EXAM: CT Head and Cervical Spine Without Intravenous Contrast INDICATION: Trauma TECHNIQUE: Axial computed tomography images of the head/brain and cervical spine without intravenous contrast. Sagittal and coronal reformatted images were created and reviewed. This CT exam was performed using one or more of the following dose reduction techniques: automated exposure control, adjustment of the mA and/or kV according to patient size, and/or use of iterative reconstruction technique. COMPARISON: CT head 05/21/2022 FINDINGS: Limitations: None. Brain and extra-axial spaces: There is age appropriate cortical atrophy and chronic ischemic periventricular white matter hypodensity. No acute infarct, hemorrhage or mass noted. Sinuses: No layering fluid in the visualized portions of the paranasal sinuses. Mastoid air cells: No mastoid effusion. Orbits: No significant abnormality noted. Vertebrae: Spinal evaluation limited by scoliosis. The bones are generally demineralized. There is diffuse disc space narrowing and facet arthrosis. No visible fracture. Soft tissues: No significant abnormality noted. Vasculature: No acute abnormality noted. Lung apices: No significant abnormality noted. Pleural space: No visualized pleural effusion or pneumothorax. IMPRESSION: 1. Cerebral atrophy. No acute changes. 2. Limited cervical spine assessment due to his scoliosis. No visible fracture. ACT 112: N/A Electronically signed by Floreciat Bangura 02-28-2025 2:13 PM Pelvis X-Ray 02/28/25 12:49 EXAM: Radiographs of the Pelvis 1 View INDICATION: Trauma TECHNIQUE: Frontal view of the pelvis. COMPARISON: 06/19/2024 FINDINGS: Limitations: None. Bones/joints: No fracture, erosion or dislocation. Soft tissues: No abnormality noted. No radiopaque foreign body noted. Tubes, lines and devices: Bilateral implanted devices noted in both lower flanks. Posterior L4-S1 fusion hardware grossly intact. IMPRESSION: No acute findings in the pelvis. ACT 112: N/A Electronically signed by Florecita Bangura 02-28-2025 13:[address] 02/28/25 12:50 EXAM: CT Lumbar Spine Without Intravenous Contrast INDICATION: Trauma TECHNIQUE: Axial computed tomography images of the lumbar spine without intravenous contrast. Sagittal and coronal reformatted images were created and reviewed. This CT exam was performed using one or more of the following dose reduction techniques: automated exposure control, adjustment of the mA and/or kV according to patient size, and/or use of iterative reconstruction technique. CONTRAST: 94 ml of Optiray 320 was administered intravenously. COMPARISON: No relevant prior studies available. FINDINGS: Limitations: None. Vertebrae: Limited by severe scoliosis and osteoporosis. Posterior L4-S1 fusion hardware noted with intact lateral bony fusion masses. No fracture or traumatic subluxation. Sacrum/coccyx: No significant abnormality noted. No acute change noted. Discs/spinal canal/neural foramina: Diffuse moderate to severe disc space narrowing. There is no definite stenosis although the canal is limited at the fusion levels by metallic artifact. Soft tissues: No significant abnormality noted. Kidneys and ureters: There is an approximate 1.0 x 0.5 cm stone in the left kidney. Tubes, lines and devices: Electrodes identified in the canal. IMPRESSION: 1. Limited study due to osteoporosis, scoliosis and artifact from fusion hardware. No definite acute abnormality. 2. There is an approximate 1.0 x 0.5 cm stone in the left kidney. ACT 112: N/A Electronically signed by Florecita Bangura 02-28-2025 2:30 PM Discharge Plan Visit Data Chief Complaint: Trauma Stated Complaint: FALL, L SIDE PAIN, WOUND ON HEAD ED Provider: Suleiman Crockett Discharge Problem: Cellulitis of left lower extremity, Chronic venous stasis dermatitis, Fall, Anticoagulant long-term use, Back pain, Abrasion of forehead Prescriptions Prescriptions: No Action diclofenac sodium 1 % gel 2 g topical DAILY PRN (Reason: Pain) ferrous sulfate [Feosol] 325 mg (65 mg iron) tablet 325 mg PO DAILY calcium carbonate-vitamin D2 600 mg calcium- 200 unit tablet 1 tab PO DAILY Rx Instructions: reported hydromorphone in 0.9 % NaCl 50 mg/50 mL (1 mg/mL) prefilled pump reservoir See Rx Instructions continuous subcutaneous infusion UD PRN (Reason: Pain) Rx Instructions: intrathecal pain pump, use as directed PRN; managed by pain clinic baclofen 10 mg tablet 10 mg PO TID PRN (Reason: muscle spasm) Qty: 30 0RF levothyroxine 150 mcg tablet 150 mcg PO [id number] Patient Comments: HOLD ON SUNDAYS Rx Instructions: HOLD ON SUNDAYS warfarin 5 mg tablet 5 mg PO UD Patient Comments: 02/28- [facility] 1 tab po daily at 6pm. Prescribed by [facility] provider. Rx Instructions: 10mg q Sunday; 7.5mg x 6 days per [facility] orally use as directed furosemide 40 mg tablet 40 mg PO DAILY Qty: 90 3RF pantoprazole 40 mg tablet,delayed release (DR/EC) 40 mg PO DAILY Qty: 90 3RF Narcan 4 mg/actuation spray,non-aerosol 4 mg intranasal Q2M PRN (Reason: opioid overdose) Qty: 2 0RF Rx Instructions: spray 1 dose into ONE nostril; alternate nostrils w each dose until help arrives lisinopril 5 mg tablet 5 mg PO DAILY Qty: 100 3RF gabapentin 400 mg capsule 400 mg PO TID Qty: 90 2RF testosterone 20.25 mg/1.25 gram (1.62 %) gel in metered-dose pump 2 pump topical DAILY Qty: 75 3RF Rx Instructions: apply 1 pump amount over each area of both sides trazodone 50 mg tablet 100 mg PO HS 90 Days Qty: 180 1RF tadalafil 5 mg tablet 5 mg PO Q3D Qty: 10 5RF escitalopram oxalate [Lexapro] 20 mg tablet 20 mg PO DAILY Qty: 90 3RF amiodarone 200 mg tablet 100 mg PO DAILY Qty: 90 3RF hydrocodone-acetaminophen 5-325 mg tablet 1 tab PO BID PRN (Reason: break through pain) miconazole nitrate 2 % Powder 1 applic TOPICAL BID lidocaine 5 % Adhesive Patch,Medicated 1 patch TOPICAL DAILY Rx Instructions: leave on most painful area for up to 12 hrs Multi-Vitamin W/Minerals Capsule 1 cap PO DAILY prednisone 20 mg tablet 20 mg PO .COMPLEX Patient Comments: 02/28-filled 02/17 10 day supply #15 Rx Instructions: 20 mg orally 2 PO daily x5 days, then 1 PO daily x5 days; polyethylene glycol 3350 8.5 gram powder in packet 17 gm PO DAILY cyanocobalamin (vitamin B-12) 1,000 mcg capsule 0 mcg PO DAILY Patient Comments: 02/28- Not [facility] unable to verify. Original:1000mcg po daily Rx Instructions: OTC Discharge Problem: Fall Qualifiers: Encounter type: initial encounter Qualified Code(s): W19.XXXA - Unspecified fall, initial encounter Back pain Qualifiers: Back pain location: low back pain Chronicity: acute Back pain laterality: right Sciatica presence: without sciatica Qualified Code(s): M54.50 - Low back pain, unspecified Abrasion of forehead Qualifiers: Encounter type: initial encounter Qualified Code(s): S00.81XA - Abrasion of other part of head, initial encounter
[2025-02-28 13:21] LABS: Hematocrit (blood only) 39.9 % (42.0-52.0); Hemoglobin 13.2 g/dl (14.0-18.0); Immature Granulocytes # (auto) 0.01 K/uL (0.01-0.20); Immature Granulocytes % (auto) 0.2 %; Mean Corpuscular Hemoglobin 31.7 pg (25.0-34.0); Mean Corpuscular Volume 95.9 fL (80.0-100.0); Platelet Count 142 K/uL (130-400); RDW Standard Deviation 57.6 fL (36.4-46.3); Red Blood Count 4.16 M/uL (4.70-6.10); White Blood Count 6.29 K/ul (4.8-10.8)
--- NOTE | 2025-02-28 13:25 | XRay Report ---
EXAM: Radiograph of the Chest 1 View INDICATION: Trauma TECHNIQUE: Frontal view of the chest. COMPARISON: 07/17/2022 FINDINGS: Lungs and pleural spaces: Minimal atelectasis in the lung bases. No pleural effusion or pneumothorax. Heart: Stable large cardiac shadow. Mediastinum: Normal contour. Bones/joints: No fracture, erosion or dislocation. Soft tissues: No abnormality noted. No radiopaque foreign body noted. Tubes, lines and devices: Intrathecal catheter terminates in the mid thoracic spine unchanged. Upper abdomen: No abnormality noted. IMPRESSION: Minimal basilar atelectasis. ACT 112: N/A Electronically signed by Florecita Bangura 02-28-2025 13:25 PM
--- NOTE | 2025-02-28 13:25 | XRay Report ---
EXAM: Radiographs of the Right Ankle 3 Views INDICATION: Trauma TECHNIQUE: AP, lateral and oblique views obtained. COMPARISON: No relevant prior studies available. FINDINGS: Limitations: None. Bones/joints: The bones are diffusely demineralized. There is calcification of the Achilles tendon toward the insertion. There is mild plantar calcaneal spurring. Minimal spurring at the tip of the fibula and medial malleolus. No definite fracture. Ankle mortise symmetric. Soft tissues: Generalized soft tissue swelling noted. No soft tissue gas collection or radiopaque foreign body. IMPRESSION: Soft tissue swelling. No acute osseous abnormality. ACT 112: N/A Electronically signed by Florecita Bangura 02-28-2025 13:24 PM
--- NOTE | 2025-02-28 13:27 | XRay Report ---
EXAM: Radiographs of the Pelvis 1 View INDICATION: Trauma TECHNIQUE: Frontal view of the pelvis. COMPARISON: 06/19/2024 FINDINGS: Limitations: None. Bones/joints: No fracture, erosion or dislocation. Soft tissues: No abnormality noted. No radiopaque foreign body noted. Tubes, lines and devices: Bilateral implanted devices noted in both lower flanks. Posterior L4-S1 fusion hardware grossly intact. IMPRESSION: No acute findings in the pelvis. ACT 112: N/A Electronically signed by Florecita Bangura 02-28-2025 13:27 PM
[2025-02-28 13:35] LABS: Alanine Aminotransferase 22 U/L (7-52); Albumin Globulin Ratio 1.4 (0.9-2); Albumin Level 3.6 gm/dl (3.4-5.0); Alkaline Phosphatase 54 U/L (34-104); Anion Gap 3 (3-11); Bilirubin,Total 1.0 mg/dl (0.2-1.0); Blood Urea Nitrogen 15 mg/dl (6-23); Calcium 8.8 mg/dl (8.6-10.3); Carbon Dioxide 35 mmol/L (21-32); Chloride 101 mmol/L (98-107); Creatine Kinase 275 U/L (30-223); Globulin 2.6 gm/dl (2.5-4.0); Glucose 102 mg/dl (70-99(Fasting)); Lipase 6 U/L (11-82); Potassium 3.5 mmol/L (3.5-5.1); Sodium 139 mmol/L (136-145); Total Protein 6.2 gm/dl (6.0-8.3)
[2025-02-28] MEDS ORDERED: VANCOMYCIN CONSULT ACTIVE PRN (13:52)
[2025-02-28] MEDS: OPTIRAY 320 100ml IV ONE (13:55)
[2025-02-28] MEDS: VANCOMYCIN HCL 2,000 MG in SODIUM CHLORIDE 0.9% 500 ML IV ONE (14:07)
[2025-02-28] MEDS: SODIUM CHLORIDE 0.9% 250 ML IV ONE (14:07)
[2025-02-28] MEDS: CEFEPIME 2000MG 2,000 MG/20 ML SYR IV STA (14:07)
[2025-02-28 14:09] LABS: Appearance Urine Clear (Clear); Bacteria Urine Automated None Seen (None Seen); Cast Urine Automated 0-2 /lpf (0-2); Epithelial Cell Urine Auto 0-2 /hpf (0-2); Glucose Urine UA Negative (Negative); RBC Urine Automated >20 /hpf (0-2); WBC Urine Automated 0-5 /hpf (0-5)
--- NOTE | 2025-02-28 14:09 | CT Scan Report ---
EXAM: CT Chest Abdomen and Pelvis With Intravenous Contrast INDICATION: Trauma. TECHNIQUE: Axial computed tomography images of the chest, abdomen and pelvis with intravenous contrast. Sagittal and coronal reformatted images were created and reviewed. This CT exam was performed using one or more of the following dose reduction techniques: automated exposure control, adjustment of the mA and/or kV according to patient size, and/or use of iterative reconstruction technique. CONTRAST: 94 ml of Optiray 320 was administered intravenously. COMPARISON: No relevant prior studies available. FINDINGS: Limitations: None. CHEST: Lungs and pleural spaces: No abnormality noted. No mass. No consolidation. No significant effusion. No pneumothorax. Heart: Enlarged heart. No pericardial effusion. Mediastinum: No abnormality noted. Thyroid: No abnormality noted. ABDOMEN: Liver: No abnormality noted. Gallbladder and bile ducts: No calcified stones or surrounding fluid. No ductal dilation. Pancreas: Homogeneous enhancement. No mass, inflammation or ductal dilation. Spleen: No significant abnormality noted. Adrenals: No significant abnormality noted. Kidneys and ureters: There is an 8 x 11 mm nonobstructing left kidney stone. The right kidney appears normal. Stomach and bowel: No distension or mucosal thickening. No inflammation noted. PELVIS: Appendix: No findings to suggest acute appendicitis. Bladder: No filling defects to suggest mass or large stone. No inflammation. Reproductive: No significant abnormality noted. CHEST, ABDOMEN and PELVIS: Intraperitoneal space: No free air. No significant fluid collection. Retroperitoneal space: No abnormality noted. No fluid collection. Bones/joints: Marked kyphoscoliosis. No fracture noted. Diffuse moderate degenerative changes present. Soft tissues: No significant abnormality noted. Vasculature: No abnormality noted. No aortic aneurysm. Lymph nodes: No enlarged lymph nodes. Tubes, lines and devices: Posterior L4-S1 fusion hardware intact. Dorsal column electrode present. IMPRESSION: 1. Study is limited by severe kyphoscoliosis. No traumatic change in the chest, abdomen or pelvis identified. 2. There is an 8 x 11 mm nonobstructing left kidney stone. ACT 112: N/A Electronically signed by Florecita Bangura 02-28-2025 2:09 PM
[2025-02-28 14:12] LABS: INR 2.7 (0.9-1.1); Partial Thromboplastin Time 46 Seconds (21-31); Prothrombin Time 27.2 Seconds (9.0-12.0)
--- NOTE | 2025-02-28 14:14 | CT Scan Report ---
EXAM: CT Head and Cervical Spine Without Intravenous Contrast INDICATION: Trauma TECHNIQUE: Axial computed tomography images of the head/brain and cervical spine without intravenous contrast. Sagittal and coronal reformatted images were created and reviewed. This CT exam was performed using one or more of the following dose reduction techniques: automated exposure control, adjustment of the mA and/or kV according to patient size, and/or use of iterative reconstruction technique. COMPARISON: CT head 05/21/2022 FINDINGS: Limitations: None. Brain and extra-axial spaces: There is age appropriate cortical atrophy and chronic ischemic periventricular white matter hypodensity. No acute infarct, hemorrhage or mass noted. Sinuses: No layering fluid in the visualized portions of the paranasal sinuses. Mastoid air cells: No mastoid effusion. Orbits: No significant abnormality noted. Vertebrae: Spinal evaluation limited by scoliosis. The bones are generally demineralized. There is diffuse disc space narrowing and facet arthrosis. No visible fracture. Soft tissues: No significant abnormality noted. Vasculature: No acute abnormality noted. Lung apices: No significant abnormality noted. Pleural space: No visualized pleural effusion or pneumothorax. IMPRESSION: 1. Cerebral atrophy. No acute changes. 2. Limited cervical spine assessment due to his scoliosis. No visible fracture. ACT 112: N/A Electronically signed by Florecita Bangura 02-28-2025 2:13 PM
--- NOTE | 2025-02-28 14:30 | CT Scan Report ---
EXAM: CT Lumbar Spine Without Intravenous Contrast INDICATION: Trauma TECHNIQUE: Axial computed tomography images of the lumbar spine without intravenous contrast. Sagittal and coronal reformatted images were created and reviewed. This CT exam was performed using one or more of the following dose reduction techniques: automated exposure control, adjustment of the mA and/or kV according to patient size, and/or use of iterative reconstruction technique. CONTRAST: 94 ml of Optiray 320 was administered intravenously. COMPARISON: No relevant prior studies available. FINDINGS: Limitations: None. Vertebrae: Limited by severe scoliosis and osteoporosis. Posterior L4-S1 fusion hardware noted with intact lateral bony fusion masses. No fracture or traumatic subluxation. Sacrum/coccyx: No significant abnormality noted. No acute change noted. Discs/spinal canal/neural foramina: Diffuse moderate to severe disc space narrowing. There is no definite stenosis although the canal is limited at the fusion levels by metallic artifact. Soft tissues: No significant abnormality noted. Kidneys and ureters: There is an approximate 1.0 x 0.5 cm stone in the left kidney. Tubes, lines and devices: Electrodes identified in the canal. IMPRESSION: 1. Limited study due to osteoporosis, scoliosis and artifact from fusion hardware. No definite acute abnormality. 2. There is an approximate 1.0 x 0.5 cm stone in the left kidney. ACT 112: N/A Electronically signed by Florecita Bangura 02-28-2025 2:30 PM
--- NOTE | 2025-02-28 15:29 | History & Physical Report ---
Date of Service February 28, 2025 Assessment & Plan (1) Cellulitis of left lower extremity: (2) Chronic venous stasis dermatitis: (3) Chronic radicular lumbar pain: (4) Presence of intrathecal pump: (5) Opioid dependence in controlled environment: (6) Paroxysmal atrial fibrillation: Plan This is a 69-year-old male with a history of paroxysmal A-fib on warfarin, chronic lymphedema, chronic pain with pain pump, who presents to the hospital today following a fall. Found to have lower extremity cellulitis and also mild rhabdo. 1. Left lower extremity cellulitis: Patient fell at his house a couple of days prior to presentation, however over the past couple of days noticed that the left lower extremity has become red and a little swollen. Examination appears to show an area of cellulitis. Cultures have been obtained. Start empiric IV vancomycin 2. Paroxysmal A-fib: Rate is under good control Continue warfarin Follows with Coumadin clinic 3. Chronic cervical radiculopathy back pain: Chronic opioid dependence, also has a pain pump 4. Chronic venous stasis 5. Mild rhabdo: Gentle hydration Recheck Ck Admit to [facility] Full code History of Present Illness Chief Complaint: cellulitis Primary Care Provider: Sp Vega, FIELD ADJUSTER-C This is a 69-year-old male with a history of paroxysmal atrial fibrillation on warfarin, chronic pain with pain pump, polyneuropathy, hypertension, chronic venous stasis who came to the hospital today following worsening lower extremity pain. According to the patient, he fell on outside of his apartment. He did not think anything of it however over the past couple of days he noticed that his lower extremity has become more painful and red. He still does not understand how he fell whether he slipped however that he lost his balance but he said he felt dizzy slightly before falling. Here in the emergency department trauma alert was activated and the hoff imaging study was done CT lumbar pelvis head chest cervical spine ankle abdomen all within normal limits however examination of his lower extremities showed evidence of cellulitis, total CK2 75 and procalcitonin was 4.45. Cultures were obtained and patient was empirically started on IV antibiotics and will be admitted to the hospital for the management. Allergies Allergy/AdvReac Type Severity Reaction Status Date / Time acetaminophen [From Vicodin] Allergy Severe Migraine Verified 02/17/25 09:08 Penicillins Allergy Unknown Rash Verified 02/17/25 09:08 sumatriptan [From Imitrex] Allergy Rash Verified 02/17/25 09:08 Home Medications Medication Instructions Recorded Confirmed Type escitalopram oxalate 20 mg tablet 20 mg PO DAILY #90 tabs 06/27/22 02/28/25 Rx (Lexapro) diclofenac sodium 1 % topical gel 2 g topical DAILY PRN Pain 09/20/22 02/28/25 History ferrous sulfate 325 mg (65 mg 325 mg PO DAILY 12/22/22 02/28/25 History iron) tablet (Feosol) hydromorphone 50 mg/50 mL (1 See Rx Instructions continuous 02/22/24 02/28/25 History mg/mL) in 0.9 % sod.chloride IV subcutaneous infusion UD PRN Pain pump resv furosemide 40 mg tablet 40 mg PO DAILY #90 tabs 03/20/24 02/28/25 Rx calcium carb-ergocalciferol (vit 1 tab PO DAILY 05/15/24 02/28/25 History D2) 600 mg calcium-200 unit tablet pantoprazole 40 mg tablet,delayed 40 mg PO DAILY #90 tabs 05/23/24 02/28/25 Rx release baclofen 10 mg tablet 10 mg PO TID PRN muscle spasm #30 07/03/24 02/28/25 Rx tabs naloxone 4 mg/actuation nasal 4 mg intranasal Q2M PRN opioid 07/08/24 02/28/25 Rx spray (Narcan) overdose #2 ea amiodarone 200 mg tablet 100 mg (1/2 x 200 mg) PO DAILY #90 07/28/24 02/28/25 Rx tabs lisinopril 5 mg tablet 5 mg PO DAILY #100 tabs 10/06/24 02/28/25 Rx gabapentin 400 mg capsule 400 mg PO TID #90 caps 11/24/24 02/28/25 Rx levothyroxine 150 mcg tablet 150 mcg PO 6XWK 12/16/24 02/28/25 History testosterone 2 pump topical DAILY #75 grams 12/16/24 02/28/25 Rx trazodone 50 mg tablet 100 mg (2 x 50 mg) PO HS 90 days 12/31/24 02/28/25 Rx #180 tabs tadalafil 5 mg tablet 5 mg PO Q3D #10 tabs 01/05/25 02/28/25 Rx warfarin 5 mg tablet 5 mg PO UD 01/16/25 02/28/25 History cyanocobalamin (vitamin B-12) 0 mcg PO DAILY 02/28/25 02/28/25 History 1,000 mcg capsule hydrocodone 5 mg-acetaminophen 325 1 tab PO BID PRN break through pain 02/28/25 02/28/25 History mg tablet lidocaine 5 % topical patch 1 patch topical DAILY 02/28/25 02/28/25 History miconazole nitrate 2 % topical 1 applic topical BID 02/28/25 02/28/25 History powder multivitamin with minerals 1 cap PO DAILY 02/28/25 02/28/25 History polyethylene glycol 3350 8.5 gram 17 gm PO DAILY 02/28/25 02/28/25 History oral powder packet prednisone 20 mg tablet 20 mg PO .COMPLEX for 10 days 02/28/25 02/28/25 History Past Med/Surg History Problem List (Updated 02/28/25 @ 14:54 by Suleiman Crockett M.D.) Abrasion of forehead (Acute) Back pain (Acute) Anticoagulant long-term use (Acute) Fall (Acute) Cellulitis of left lower extremity (Acute) Right knee pain Chronic radicular lumbar pain Cervical radiculopathy Bilateral nephrolithiasis Carpal tunnel syndrome of right wrist HILTON (dyspnea on exertion) On amiodarone therapy Idiopathic polyneuropathy Gross hematuria Tremor Subjective memory complaints Vitamin D deficiency Hypogonadism male Hypertension (Chronic) Depression (Chronic) Chronic venous stasis dermatitis (Chronic) Hypothyroidism (Chronic) Lumbar stenosis (Chronic) Kyphoscoliosis (Chronic) Osteoporosis (Chronic) Presence of intrathecal pump Opioid dependence in controlled environment (Chronic) Keke's thyroiditis Low testosterone Low libido Erectile dysfunction Insomnia Sleep apnea Complex sleep apnea syndrome Traumatic open wound of right lower leg with delayed healing Chronic venous insufficiency (Acute) Postlaminectomy syndrome of lumbosacral region Migraine BPH (benign prostatic hyperplasia) Paroxysmal atrial fibrillation Thoracic aortic aneurysm (TAA) dilation of the ascending thoracic aorta measures up to 4.5 cm at the level of the main pulmonary artery Irregular Z line of esophagus jail current use of anticoagulants with INR goal of 2.0-3.0 Generalized weakness Anemia Pneumonia Barretts esophagus Prediabetes Left nephrolithiasis Microscopic hematuria Fatigue Medical History Bilateral nephrolithiasis Upper respiratory tract infection due to COVID-19 virus Venous stasis ulcer of right ankle Intractable back pain Venous thrombosis Constipation GERD (gastroesophageal reflux disease) Acute thrombosis of cephalic vein Pneumonia New onset atrial fibrillation Sacroiliitis Lower extremity venous stasis Testicular hernia history of History of broken collarbone Surgical History History of elbow surgery Status post hip surgery Status post insertion of spinal cord stimulator Encounter for post-sterilization vasoplasty S/P hernia repair History of appendectomy Previous back surgery Family History Mother Colitis Alzheimer disease Brother Colitis Hypertension Heart disease Sister Hypertension Father Hypertension Prostate cancer Myocardial infarction Denies family history of Ovarian cancer Coronary heart disease Breast cancer Colorectal cancer Social History Smoking Status: Never smoker Second Hand Exposure: Yes; Do You Dip or Chew Tobacco: No; Hx Alcohol Use: No Hx Substance Use: No Preferred Language: Georgian Communication Ability: Effective Visual Impairment: Limited Hearing Ability: Use of Hearing Aid Process Cheese Cooker Required: No Beliefs That Will Affect Care: None marital status: Current Living Situation: Spouse and Family current occupational status: employed 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 Physical Exam Physical Exam: The patient is awake, alert and oriented 3, well developed and well nourished, normocephalic and atraumatic, lying in bed and in no acute distress. HEENT--PERRL, EOMI, mucous membranes and oropharynx mildly dry Neck--supple. No JVD. No bruits. Thyroid normal, trachea midline, no adenopathy. Heart--normal S1 and S2. No murmurs, rubs or gallops. Lungs--clear bilaterally, no respiratory distress, no accessory muscle use. Abdomen--normal bowel sounds and soft. Extremities--no cyanosis or clubbing. edema, chronic venous stasis Dermatologic--lymphedema Neurologic--cranial nerves II through XII grossly intact. Rheumatologic--normal range of motion. Psychiatric--normal affect. Results & Data Results & Data Vital Signs (Past 12 Hours) Vital Signs Temp Pulse Pulse Resp BP BP BP 02/28/25 14:30 78 16 130/76 02/28/25 14:03 74 20 150/71 H 02/28/25 13:00 78 22 129/75 02/28/25 12:47 81 02/28/25 12:45 98.2 F 79 22 138/74 02/28/25 12:34 98.2 F 82 18 108/57 L Pulse Ox O2 Del Method O2 Flow Rate 02/28/25 14:30 96 Room Air 02/28/25 14:03 96 Room Air 02/28/25 13:00 95 Room Air 02/28/25 12:47 02/28/25 12:45 96 Room Air 0 02/28/25 12:34 97 Room Air PG Care Time/CCT Total # of Minutes Spent Total Time Spent with Patient: Total time spent is greater than 50% in coordination of care (as documented) at patient's floor/unit and/or counseling patient: Coding Level of Care Code 33015 INT INP/OBS CARE 2/55MIN Diagnoses Cellulitis of left lower extremity L03.116 Chronic venous stasis dermatitis I87.2 Chronic radicular lumbar pain M54.16; G89.29 Presence of intrathecal pump Z96.89 Opioid dependence in controlled environment F11.20 Paroxysmal atrial fibrillation I48.0 Time Spent (min) 55
[2025-02-28] MEDS ORDERED: LEVOTHYROXINE SODIUM 150 MCG TABLET PO SCH (16:51)
[2025-02-28] MEDS ORDERED: predniSONE 20 MG TAB PO SCH (16:51)
[2025-02-28] MEDS ORDERED: WARFARIN SOD 5 MG TAB PO SCH (16:51)
[2025-02-28] MEDS: WARFARIN SOD 7.5 MG TAB PO SCH (20:45)
[2025-02-28] MEDS: GABAPENTIN 400 MG CAP PO SCH (20:46)
[2025-02-28] MEDS: HYDROCODONE/ACETAMOPHEN 5/325MG TAB PO PRN (22:10)
--- NOTE | 2025-03-01 06:53 | Electrocardiogram Report ---
Test Reason : Blood Pressure : */* mmHG Vent. Rate : 81 BPM Atrial Rate : 81 BPM P-R Int : 158 ms QRS Dur : 150 ms QT Int : 440 ms P-R-T Axes : 40 27 14 degrees QTcB Int : 511 ms Normal sinus rhythm Right bundle branch block Possible Lateral infarct (cited on or before 06-Apr-2022) Abnormal ECG When compared with ECG of 03-May-2022 14:25, No significant change Confirmed by Johnny Sebastian ([id number]) on 03/01/2025 6:53:00 AM Referred By: Confirmed By: Johnny Sebastian
[2025-03-01 07:05] LABS: Hematocrit (blood only) 36.4 % (42.0-52.0); Hemoglobin 12.5 g/dl (14.0-18.0); Mean Corpuscular Hemoglobin 32.8 pg (25.0-34.0); Mean Corpuscular Volume 95.5 fL (80.0-100.0); Platelet Count 106 K/uL (130-400); RDW Standard Deviation 56.8 fL (36.4-46.3); Red Blood Count 3.81 M/uL (4.70-6.10); White Blood Count 4.08 K/ul (4.8-10.8)
[2025-03-01 07:22] LABS: Anion Gap 4.0 (3-11); Blood Urea Nitrogen 11.0 mg/dl (6-23); Calcium 8.3 mg/dl (8.6-10.3); Carbon Dioxide 33.0 mmol/L (21-32); Chloride 104.0 mmol/L (98-107); Creatinine Clr Calc Pharmacy 106.8 ml/min; Glucose 103.0 mg/dl (70-99(Fasting)); Potassium 4.0 mmol/L (3.5-5.1); Sodium 141.0 mmol/L (136-145)
[2025-03-01] MEDS: ACETAMINOPHEN 325 MG TAB PO PRN (08:52)
[2025-03-01] MEDS: AMIODARONE 200 MG TAB PO SCH (08:54)
[2025-03-01] MEDS: ESCITALOPRAM OXALATE 20 MG TAB PO SCH (08:55)
[2025-03-01] MEDS: CALCIUM 600MG + VIT D 400 IU TAB PO SCH (08:55)
[2025-03-01] MEDS: FERROUS SULFATE 325 MG TAB PO SCH (08:56)
[2025-03-01] MEDS: POLYETHYLENE (MIRALAX) 17 GM PACK PO SCH (08:57)
--- NOTE | 2025-03-01 09:50 | XRay Report ---
EXAM: Radiographs of the Right Foot 2 Views INDICATION: Posttraumatic pain. TECHNIQUE: Frontal and lateral views of the right foot. COMPARISON: No relevant prior studies available. FINDINGS: Bones/joints: The bones are demineralized. There is mild to moderate calcaneal spurring at the Achilles and plantar surfaces. Mallet toes 2 through 5 with diffuse mild joint space narrowing. No definite acute abnormality. Soft tissues: There is calcification of the Achilles tendon. No radiopaque foreign body. IMPRESSION: No acute osseous abnormality. Chronic findings as above. ACT 112: N/A Electronically signed by Florecita Bangura 03-01-2025 09:50 AM
[2025-03-01] MEDS: METOCLOPRAMIDE HCL INJ 5 MG/ML 2 ML VIAL IV STA (10:26)
[2025-03-01] MEDS: KETOROLAC TROMETHAMINE 15 MG/ML VIAL IV STA (10:26)
--- NOTE | 2025-03-01 10:45 | Hospitalist Progress Note ---
Date of Service March 01, 2025 Assessment & Plan (1) Cellulitis of left lower extremity: (2) Chronic venous stasis dermatitis: (3) Chronic radicular lumbar pain: (4) Presence of intrathecal pump: (5) Opioid dependence in controlled environment: (6) Paroxysmal atrial fibrillation: Plan This is a 69-year-old male with a history of paroxysmal A-fib on warfarin, chronic lymphedema, chronic pain with pain pump, who presents to the hospital today following a fall. Found to have lower extremity cellulitis and also mild rhabdo. 1. Left lower extremity cellulitis: Patient fell at his house a couple of days prior to presentation, however over the past couple of days noticed that the left lower extremity has become red and a little swollen. Examination appears to show an area of cellulitis. Cultures have been obtained. Start empiric IV vancomycin Area off cellulitis has improved Transition to PO antibiotics upon discharge 2. Paroxysmal A-fib: Rate is under good control Continue warfarin Follows with Coumadin clinic 3. Chronic cervical radiculopathy back pain: Chronic opioid dependence, also has a pain pump 4. Chronic venous stasis 5. Mild rhabdo: Gentle hydration Recheck Ck 6 Migraine Given Toradol and Reglan Admit to [facility] Full code Admission and Anticipated Discharge Date Admission Date: February 28, 2025 Subjective patient seen and examined, said his migraine is bothering him Review of Systems Review of Systems: All systems reviewed are negative, apart from the ones contained in the history. Physical Exam Physical Exam: The patient is awake, alert and oriented 3, well developed and well nourished, normocephalic and atraumatic, lying in bed and in no acute distress. HEENT--PERRL, EOMI, mucous membranes and oropharynx mildly dry Neck--supple. No JVD. No bruits. Thyroid normal, trachea midline, no adenopathy. Heart--normal S1 and S2. No murmurs, rubs or gallops. Lungs--clear bilaterally, no respiratory distress, no accessory muscle use. Abdomen--normal bowel sounds and soft. Extremities--no cyanosis or clubbing. edema, chronic venous stasis Dermatologic--lymphedema Neurologic--cranial nerves II through XII grossly intact. Rheumatologic--normal range of motion. Psychiatric--normal affect. Results & Data Results & Data Vital Signs (Past 12 Hours) Vital Signs Temp Pulse Resp BP Pulse Ox O2 Del Method 03/01/25 06:58 97.5 F L 62 16 145/76 H 94 Room Air PG Care Time/CCT Total # of Minutes Spent Total Time Spent with Patient: Total time spent is greater than 50% in coordination of care (as documented) at patient's floor/unit and/or counseling patient: Coding Level of Care Code 54743 SUB INP/OBS CARE 2/35MIN Diagnoses Cellulitis of left lower extremity L03.116 Chronic venous stasis dermatitis I87.2 Chronic radicular lumbar pain M54.16; G89.29 Presence of intrathecal pump Z96.89 Opioid dependence in controlled environment F11.20 Paroxysmal atrial fibrillation I48.0 Time Spent (min) 35
[2025-03-01] MEDS: DAPTOmycin 500 MG in SYRINGE 0 ML IV SCH (16:57)
[2025-03-02] MEDS: LEVOTHYROXINE SODIUM 150 MCG TABLET PO SCH (06:00)
[2025-03-02 06:43] LABS: Hematocrit (blood only) 37.0 % (42.0-52.0); Hemoglobin 12.8 g/dl (14.0-18.0); Mean Corpuscular Hemoglobin 32.6 pg (25.0-34.0); Mean Corpuscular Volume 94.1 fL (80.0-100.0); Platelet Count 114 K/uL (130-400); RDW Standard Deviation 53.9 fL (36.4-46.3); Red Blood Count 3.93 M/uL (4.70-6.10); White Blood Count 3.74 K/ul (4.8-10.8)
[2025-03-02 07:28] LABS: Anion Gap 3.0 (3-11); Blood Urea Nitrogen 13.0 mg/dl (6-23); Calcium 8.5 mg/dl (8.6-10.3); Carbon Dioxide 33.0 mmol/L (21-32); Chloride 104.0 mmol/L (98-107); Creatinine Clr Calc Pharmacy 103.1 ml/min; Glucose 98.0 mg/dl (70-99(Fasting)); Potassium 4.0 mmol/L (3.5-5.1); Sodium 140.0 mmol/L (136-145)
--- NOTE | 2025-03-02 10:10 | Hospitalist Progress Note ---
"Date of Service March 02, 2025 Assessment & Plan (1) Cellulitis of left lower extremity: (2) Chronic venous stasis dermatitis: (3) Chronic radicular lumbar pain: (4) Presence of intrathecal pump: (5) Opioid dependence in controlled environment: (6) Paroxysmal atrial fibrillation: Plan This is a 69-year-old male with a history of paroxysmal A-fib on warfarin, chronic lymphedema, chronic pain with pain pump, who presented to the hospital following a fall. Patient unsure regarding mechanism of fall as he had dizziness prior to fall. CT hoff scan done in ED with negative right foot/ankle x-rays, negative pelvis x-ray, CT of lumbar spine with limited study due to osteoporos is, scoliosis, and artifact from fusion hardware/no definite acute abnormality, approximate 1.0 x 0.5cm stone to left kidney, CT of chest with limitation due to kyphoscoliosis, no traumatic changes in chest, abd or pelvis and 8 x 11 mm nonobstructing kidney stone, CT of head with cerebral atrophy, no acute changes and limited cervical spine assessment due to scoliosis, no visible fracture, Chest x-ray with minimal basilar atelectasis, CT of cervical spine with cerebral atrophy and no acute changes, CTAP with study limitation secondary to severe kyphoscolisosi, no traumatic change in the chest, abdomen, pelvis and 8 x11mm non-obstruction left kidney stone. Upon examination in ED there were concerns for possibly developing cellulitis to left foot and ankle given the redness on exam. ##Left lower extremity cellulitis-with fall prior to arrival for admission, sudden onset over 48 hour period without recent report of bites, puncture wounds, water/soil exposure or pressure injury -afebrile today, +reports of intermittent chills -preliminary BCs without growth -coverage with IV Daptomycin -left foot x-ray ##Paroxysmal A-fib-hx of in setting of pneumonia-HR trending in 60s/70s with vital signs review -regular rate/rhythm on exam today -follows with Dr. Lake outpatient -no hx of heart failure, most recent JOVANY 09/30/24 with EF 55-60%, moderate concentric left ventricular hypertrophy -on oral Amiodarone -on home AC regimen with Warfarin, INR 2.7 on 02/28/25, will check tomorrow am ##Chronic back pain secondary to lumbar spine fusion with hx of multiple prior procedures and polyneuropathy |chronic pain syndrome -managed outpatient with [facility] -on gabapentin, prn baclofen -hydromorphone intrathecal pump (next refill due mid-March), order for PRN hydrocodone for breakthrough pain ##Chronic venous stasis -on Lasix at home, held for now -has followed with vascular in the past -hx of nonhealing ulceration in past and treatment with Varithena -currently without ulcerations -supportive care, compression stocking once cellulitis resolves ##Mild rhabdomyolysis -CK on arrival at 275 -with reports of tea-colored urine per nursing this am -LR at 125ml/hr x 1 bag -recheck CK in am ##Microscopic hematuria -3+ blood in urine -follows with [facility] for left nephrolithiasis and microscopic hematuria, hematuria workup negative with monitoring of stone per urology notes from 07/21/24, to f/u in 1 year with UA and KUB -CTAP with 8 x11 mm non-obstruction left kidney stone -will recheck urine in am ##Leukopenia|thrombocytopenia -followed by heme in past -hx of low trends without reports of bleeding, bruising or new constitutional symptoms -trend -ensure f/u with discharge DVT proph: on Warfarin Disposition: Continued admission on med/surg, d/c in 1-2 days on home antibiotics with possible home health services Full code Admission and Anticipated Discharge Date Admission Date: February 28, 2025 Subjective Patient seen in room this a.m. Awake, alert and oriented with conversation. States that he is still experiencing some left lower extremity discomfort. Has not taken any as needed medication for pain. He does endorse that he has some intermittent chills. Appetite has been good. Has been emptying bladder, move bow els yesterday. Has no dizziness. Agrees with plan for discharge with home health. Reports he does have a positive support system at home with his . He does have issues with limited mobility secondary to history of spine surgery. Adjuncts for ambulation he uses at home includes cane and wheeled walker. Did participate with physical therapy yesterday and is agreeable to home health services. Review of Systems Constitutional: +chills Physical Exam Physical Exam: GENERAL APPEARANCE: A&O. Sitting comfortably in bed. NAD. SKIN: Normal color without rashes or lesions. Normal turgor. HEENT: Head AT/NC. Buccal mucosa is moist and pink. 2 x 2 cm area of abrasion over the right forehead. NECK: No jugular venous distention. No thyroid enlargement. There is no lymphadenopathy. HEART: RRR without m/g/r LUNGS: Normal inspiratory effort. CTA without w/r/r ABDOMEN: No guarding or rigidity. Normoactive BS in all four quadrants. Abdomen soft and NT. MSK: No bony gross/deformities throughout. ROM intact. EXTREMITIES: No edema, No peripheral cyanosis. bilateral lower extremities with hyperpigmentation present and scaling. Noted serosanguineous drainage on pillow case of where LLE is resting. Left dorsal aspect of foot with erythema and warmth to palpation. Positive dorsalis pedis, posterior tibialis pulses at +2. Results & Data Results & Data Vital Signs (Past 12 Hours) Vital Signs Temp Pulse Resp BP Pulse Ox O2 Del Method 03/02/25 07:56 36.6 C 73 18 158/75 H 96 Room Air PG Care Time/CCT Total # of Minutes Spent Total Time Spent with Patient: Total time spent is greater than 50% in coordination of care (as documented) at patient's floor/unit and/or counseling patient: Coding Level of Care Code 68061 SUB INP/OBS CARE 3/50MIN Diagnoses Cellulitis of left lower extremity L03.116 Chronic venous stasis dermatitis I87.2 Chronic radicular lumbar pain M54.16; G89.29 Presence of intrathecal pump Z96.89 Opioid dependence in controlled environment F11.20 Paroxysmal atrial fibrillation I48.0"
[2025-03-02] MEDS: LACTATED RINGER'S 1,000 ML IV SCH (12:53)
--- NOTE | 2025-03-02 16:00 | XRay Report ---
XR foot LT min 3V routine CLINICAL HISTORY: Left foot cellulitis, pain COMPARISON: None FINDINGS: No fracture or dislocation. No erosion or significant degenerative change. No osteomyeliti s seen. There is a chronic calcification near the Achilles insertion on the calcaneus consistent with calcific tendinitis or old Achilles injury. IMPRESSION: No osteomyelitis seen. ACT 112: Negative or not required by law. Electronically signed by: Zoltan Guevara M.D. 03/02/2025 3:58 PM
[2025-03-03 08:14] LABS: Appearance Urine Clear (Clear); Bacteria Urine Automated None Seen (None Seen); Cast Urine Automated 0-2 /lpf (0-2); Epithelial Cell Urine Auto 0-2 /hpf (0-2); Glucose Urine UA Negative (Negative); RBC Urine Automated >20 /hpf (0-2); WBC Urine Automated 0-5 /hpf (0-5)
[2025-03-03 09:29] LABS: Hematocrit (blood only) 38.9 % (42.0-52.0); Hemoglobin 13.1 g/dl (14.0-18.0); Immature Granulocytes # (auto) 0.02 K/uL (0.01-0.20); Immature Granulocytes % (auto) 0.4 %; Mean Corpuscular Hemoglobin 32.4 pg (25.0-34.0); Mean Corpuscular Volume 96.3 fL (80.0-100.0); Platelet Count 134 K/uL (130-400); RDW Standard Deviation 56.3 fL (36.4-46.3); Red Blood Count 4.04 M/uL (4.70-6.10); White Blood Count 4.99 K/ul (4.8-10.8)
[2025-03-03 09:45] LABS: Anion Gap 2.0 (3-11); Blood Urea Nitrogen 12.0 mg/dl (6-23); Calcium 8.6 mg/dl (8.6-10.3); Carbon Dioxide 31.0 mmol/L (21-32); Chloride 107.0 mmol/L (98-107); Creatine Kinase 116.0 U/L (30-223); Creatinine Clr Calc Pharmacy 121.7 ml/min; Glucose 93.0 mg/dl (70-99(Fasting)); Potassium 4.2 mmol/L (3.5-5.1); Sodium 140.0 mmol/L (136-145)
[2025-03-03] MEDS: BACLOFEN 10 MG TAB PO PRN (10:01)
[2025-03-03 10:07] LABS: INR 3.7 (0.9-1.1); Prothrombin Time 36.1 Seconds (9.0-12.0)
--- NOTE | 2025-03-03 11:08 | Hospitalist Progress Note ---
"Date of Service March 03, 2025 Assessment & Plan (1) Cellulitis of left lower extremity: (2) Chronic venous stasis dermatitis: (3) Chronic radicular lumbar pain: (4) Presence of intrathecal pump: (5) Opioid dependence in controlled environment: (6) Paroxysmal atrial fibrillation: Plan This is a 69-year-old male with a history of paroxysmal A-fib on warfarin, chronic lymphedema, chronic pain with pain pump, who presented to the hospital following a fall. Patient unsure regarding mechanism of fall as he had dizziness prior to fall. CT hoff scan done in ED with negative right foot/ankle x-rays, negative pelvis x-ray, CT of lumbar spine with limited study due to osteoporos is, scoliosis, and artifact from fusion hardware/no definite acute abnormality, approximate 1.0 x 0.5cm stone to left kidney, CT of chest with limitation due to kyphoscoliosis, no traumatic changes in chest, abd or pelvis and 8 x 11 mm nonobstructing kidney stone, CT of head with cerebral atrophy, no acute changes and limited cervical spine assessment due to scoliosis, no visible fracture, Chest x-ray with minimal basilar atelectasis, CT of cervical spine with cerebral atrophy and no acute changes, CTAP with study limitation secondary to severe kyphoscolisosi, no traumatic change in the chest, abdomen, pelvis and 8 x11mm non-obstruction left kidney stone. Upon examination in ED there were concerns for possibly developing cellulitis to left foot and ankle given the redness on exam. ##Left lower extremity cellulitis|Chronic venous stasis-with fall prior to arrival for admission, sudden onset over 48 hour period without recent report of bites, puncture wounds, water/soil exposure or pressure injury -afebrile, no chills -preliminary BCs without growth -coverage with IV Daptomycin -left foot x-ray without osteo -WC to tailor ABX coverage ##Paroxysmal A-fib-hx of in setting of pneumonia-HR trending in 60s/70s with vital signs review -regular rate/rhythm on exam today -follows with Dr. Lake outpatient -no hx of heart failure, most recent JOVANY 09/30/24 with EF 55-60%, moderate concentric left ventricular hypertrophy -on oral Amiodarone -on home AC regimen with Warfarin -INR 3.7, HOLD warfarin -INR in am ##Chronic back pain secondary to lumbar spine fusion with hx of multiple prior procedures and polyneuropathy |chronic pain syndrome -managed outpatient with [facility] -on gabapentin, prn baclofen -hydromorphone intrathecal pump (next refill due mid-March), PRN hydrocodone for breakthrough pain ##Mild rhabdomyolysis -CK on arrival at 275 -LR at 125ml/hr x 1 bag -CK normalized: 116 ##Microscopic hematuria -asymptomatic, denies visible blood in urine -3+ blood in urine -follows with [facility] for left nephrolithiasis and microscopic hematuria, hematuria workup negative with monitoring of stone per urology notes from 07/21/24, to f/u in 1 year with UA and KUB -CTAP with 8 x11 mm non-obstructing left kidney stone ##Leukopenia|thrombocytopenia -followed by heme in past -hx of low trends without reports of bleeding, bruising or new constitutional symptoms -WBCs 4.99, platelets 134 -ensure f/u with discharge DVT proph: on Warfarin Disposition: Continued admission on med/surg, d/c in 1-2 days on home antibiotics with possible home health services Full code Admission and Anticipated Discharge Date Admission Date: February 28, 2025 Subjective Patient sitting up in bed this am. Reports bilateral lower legs with some discomfort and repositioning self to place of comfort while in bed. States he would like his as needed hydrocodone. Reports discomfort in bilateral lower extremities as numbness and tingling correlating with symptoms he experience related to neuropathy. Appetite good, hydrating well. Denies fever, chills, worsening right lower ext pain, redness or discomfort. Review of Systems Review of Systems: All systems reviewed & are unremarkable except as noted in Subjective Physical Exam Physical Exam: Exam: GENERAL APPEARANC E: A&O. Sitting co mfortably in bed. NAD. SKIN: Normal color without rash es or lesions. No rmal turgor. HEENT : Head AT/NC. Bucc al mucosa is moist and pink. 2 x 2 c m area of abrasion over the right fo rehead. NECK: No j ugular venous dist ention. No thyroid enlargement. Ther e is no lymphadeno milagros. HEART: RRR without m/g/r LUNG S: Normal inspirat ory effort. CTA wi thout w/r/r ABDOME N: No guarding or rigidity. Normoact alexx BS in all four quadrants. Abdome n soft and NT. MSK : No bony gross/de formities througho ut. ROM intact. EX TREMITIES: Trace p edal edema to left foot. No peripher al cyanosis. bilat eral lower extremi ties with hyperpig mentation present and scaling. Left lower ext/ankle/le ft dorsal aspect o f foot with erythe ma and warmth to p alpation. Positive dorsalis pedis, p osterior tibialis pulses at +2. Results & Data Results & Data Vital Signs (Past 12 Hours) Vital Signs Temp Pulse Resp BP Pulse Ox O2 Del Method 03/03/25 08:03 36.4 C L 61 18 147/77 H 95 Room Air PG Care Time/CCT Total # of Minutes Spent Total Time Spent with Patient: Total time spent is greater than 50% in coordination of care (as documented) at patient's floor/unit and/or counseling patient: Coding Level of Care Code 24644 SUB INP/OBS CARE 3/50MIN Diagnoses Cellulitis of left lower extremity L03.116 Chronic venous stasis dermatitis I87.2 Chronic radicular lumbar pain M54.16; G89.29 Presence of intrathecal pump Z96.89 Opioid dependence in controlled environment F11.20 Paroxysmal atrial fibrillation I48.0"
[2025-03-04 07:39] LABS: Anion Gap 1.0 (3-11); Blood Urea Nitrogen 13.0 mg/dl (6-23); Calcium 8.3 mg/dl (8.6-10.3); Carbon Dioxide 31.0 mmol/L (21-32); Chloride 108.0 mmol/L (98-107); Creatinine Clr Calc Pharmacy 105.5 ml/min; Glucose 95.0 mg/dl (70-99(Fasting)); Potassium 4.6 mmol/L (3.5-5.1); Sodium 140.0 mmol/L (136-145)
[2025-03-04 07:44] LABS: INR 3.1 (0.9-1.1); Prothrombin Time 30.7 Seconds (9.0-12.0)
--- NOTE | 2025-03-04 10:28 | Hospitalist Progress Note ---
"Date of Service March 04, 2025 Assessment & Plan (1) Cellulitis of left lower extremity: (2) Chronic venous stasis dermatitis: (3) Chronic radicular lumbar pain: (4) Presence of intrathecal pump: (5) Opioid dependence in controlled environment: (6) Paroxysmal atrial fibrillation: Plan This is a 69-year-old male with a history of paroxysmal A-fib on warfarin, chronic lymphedema, chronic pain with pain pump, who presented to the hospital following a fall. Patient unsure regarding mechanism of fall as he had dizziness prior to fall. CT hoff scan done in ED. Upon examination in ED there were concerns for possibly developing cellulitis to left foot and ankle given the redness on exam. ##Left lower extremity cellulitis|Chronic venous stasis-with fall prior to arrival for admission, sudden onset over 48 hour period without recent report of bites, puncture wounds, water/soil exposure or pressure injury, still with persistent erythema and warmth on exam, difficulty bearing weight on left foot due to pain unable to participate with PT yesterday -afebrile, no chills -preliminary BCs without growth -IV Daptomycin -left foot x-ray without osteo -WC to tailor ABX coverage -WC pending -add Ceftriaxone for gram negative coverage ##Paroxysmal A-fib-hx of in setting of pneumonia-HR trending in 60s/70s with vital signs review -regular rate/rhythm on exam today -follows with card outpatient -JOVANY 09/30/24 with EF 55-60%, moderate concentric left ventricular hypertrophy -Amiodarone po -on home AC regimen with Warfarin (failed Eliquis in past due to several peripheral thromboses from 2021) -INR 3.1, administer Warfarin today per AC clinic recommendations, consider dosing down pending INR tomorrow with addition of Ceftriaxone -INR in am ##Chronic back pain secondary to lumbar spine fusion with hx of multiple prior procedures and polyneuropathy |chronic pain syndrome -managed outpatient with [facility] -on gabapentin, prn baclofen -hydromorphone intrathecal pump (next refill due mid-March), PRN hydrocodone for breakthrough pain ##Mild rhabdomyolysis -CK on arrival at 275 -LR at 125ml/hr x 1 bag -CK normalized: 116 ##Microscopic hematuria -asymptomatic, denies visible blood in urine -3+ blood in urine -follows with [facility] for left nephrolithiasis and microscopic hematuria, hematuria workup negative with monitoring of stone per urology notes from 07/21/24, to f/u in 1 year with UA and KUB -CTAP with 8 x 11 mm non-obstructing left kidney stone ##Leukopenia|thrombocytopenia -followed by heme in past -hx of low trends without reports of bleeding, bruising or new constitutional symptoms -WBCs 4.99, platelets 134 -ensure f/u with discharge DVT proph: on Warfarin Disposition: Continued admission on med/surg, pending discharge with symptom improvement and f/u with at home with services Full code Admission and Anticipated Discharge Date Admission Date: February 28, 2025 Subjective Patient sitting up in bed this am. States he is feeling better and his pain has decreased in his left foot. He reports being able to move the toes in his left foot more and less induction of pain with movement of foot. Eating and drinking adequately. Reports his urine color has cleared. Last BM 03/02-receiving Miralax today. States he was more painful in left foot yesterday and declined intervention with PT as he also worked with OT. He is agreeable to home health services post discharge for strengthening and conditioning. Denies fever or chills. Review of Systems Review of Systems: All systems reviewed & are unremarkable except as noted in Subjective Physical Exam Physical Exam: GENERAL APPEARANCE: A&O. Sitting comfortably in bed. NAD. SKIN: Normal color without rashes or lesions. Normal turgor. HEENT: Head AT/NC. Buccal mucosa is moist and pink. NECK: No jugular venous distention. No thyroid enlargement. There is no lymphadenopathy. HEART: RRR without m/g/r LUNGS: Normal inspiratory effort. CTA without w/r/r ABDOMEN: No guarding or rigidity. Normoactive BS in all four quadrants. Abdomen soft and NT. MSK: No bony gross/deformities throughout. ROM intact. EXTREMITIES: Trace pedal edema to left foot. No peripheral cyanosis. Bilateral lower extremities with hyperpigmentation and scaling. Left lower ext/ankle/left dorsal aspect of foot with erythema and warm to palpation. No additional migration of redness. +Pedal pulses present bilaterally. Neuro: CN 2-12 grossly intact. No focal neuro deficits PSYCHIATRIC: Normal affect. Eye contact is good. Speech is normal rate and content. Responses are appropriate. Results & Data Results & Data Vital Signs (Past 12 Hours) Vital Signs Temp Pulse Resp BP Pulse Ox O2 Del Method 03/04/25 08:55 71 93 Room Air 03/04/25 07:54 36.9 C 57 L 18 121/63 94 Room Air 03/03/25 23:00 36.7 C 64 18 152/75 H 94 Room Air Laboratory Results Labs reviewed PG Care Time/CCT Total # of Minutes Spent Total Time Spent with Patient: Total time spent is greater than 50% in coordination of care (as documented) at patient's floor/unit and/or counseling patient: Coding Level of Care Code 21229 SUB INP/OBS CARE 3/50MIN Diagnoses Cellulitis of left lower extremity L03.116 Chronic venous stasis dermatitis I87.2 Chronic radicular lumbar pain M54.16; G89.29 Presence of intrathecal pump Z96.89 Opioid dependence in controlled environment F11.20 Paroxysmal atrial fibrillation I48.0"
[2025-03-04] MEDS: cefTRIAXone SODIUM 2,000 MG/50 ML BAG IV SCH (11:17)
[2025-03-05 06:57] LABS: INR 2.8 (0.9-1.1); Prothrombin Time 28.0 Seconds (9.0-12.0)
[2025-03-05 07:00] LABS: Anion Gap 4.0 (3-11); Blood Urea Nitrogen 14.0 mg/dl (6-23); Calcium 8.3 mg/dl (8.6-10.3); Carbon Dioxide 30.0 mmol/L (21-32); Chloride 108.0 mmol/L (98-107); Creatinine Clr Calc Pharmacy 104.3 ml/min; Glucose 93.0 mg/dl (70-99(Fasting)); Potassium 4.4 mmol/L (3.5-5.1); Sodium 142.0 mmol/L (136-145)
[2025-03-05 10:30] LABS: Uric Acid 4.3 mg/dl (2.6-7.2)
[2025-03-05] MEDS: CEFEPIME 2000MG 2,000 MG/20 ML SYR IV SCH (11:25)
--- NOTE | 2025-03-05 11:27 | Ultrasound Report ---
LEFT LOWER EXTREMITY VENOUS DOPPLER HISTORY: Redness, pain to left foot COMPARISON STUDY: None FINDINGS: No evidence of DVT seen at the left lower extremity. IMPRESSION: No DVT seen. . ACT 112: Negative or not required by law. Electronically signed by: Zoltan Guevara M.D. 03/05/2025 11:26 AM
--- NOTE | 2025-03-05 13:02 | Hospitalist Progress Note ---
"<Statement entered by Angelina Salgado MD - 03/05/25 19:33> LLE pain and redness not improved on daptomycin, ceftriaxone started yesterday. Wound culture pseudomonas. Surface culture not very accurate, however, has not responded to narrow antibiotics and agree with cefepime since he well may have pseudomonal or other gram negative cellulitis Considered alternative diagnoses: DVT - LE duplex was negative Acute gout - wouldn't explain redness going up rudd well past the ankle joint Date of Service March 05, 2025 Assessment & Plan (1) Cellulitis of left lower extremity: (2) Chronic venous stasis dermatitis: (3) Chronic radicular lumbar pain: (4) Presence of intrathecal pump: (5) Opioid dependence in controlled environment: (6) Paroxysmal atrial fibrillation: Plan This is a 69-year-old male with a history of paroxysmal A-fib on warfarin, chronic lymphedema, chronic pain with pain pump, who presented to the hospital following a fall. Patient unsure regarding mechanism of fall as he had dizziness prior to fall. CT hoff scan done in ED. Upon examination in ED there were concerns for possibly developing cellulitis to left foot and ankle given the redness on exam. ##Left lower extremity cellulitis|Chronic venous stasis-with fall prior to arrival for admission, sudden onset over 48 hour period without recent report of bites, puncture wounds, water/soil exposure or pressure injury, still with persistent erythema and warmth on exam -afebrile, no chills, new unilateral swelling to left lower leg/left foot -prelim BCs without growth -prelim WC to left leg with pseudomonas aeruginosa -left foot x-ray without osteo -venous doppler to r/o DVT: No DVT appreciated -uric acid WNL -d/c Dapto, Ceftriaxone -Cefipime 2G IV Q8H ##Paroxysmal A-fib-hx of in setting of pneumonia-HR trending in 60s/70s with vital signs review -regular rate/rhythm on exam -follows with card outpatient -JVOANY 09/30/24 with EF 55-60%, moderate concentric left ventricular hypertrophy -Amiodarone po -on home AC regimen with Warfarin (failed Eliquis in past due to several peripheral thromboses from 2021) -INR 2.8, administer Warfarin today per AC clinic recommendations -INR in am ##Chronic back pain secondary to lumbar spine fusion with hx of multiple prior procedures and polyneuropathy |chronic pain syndrome -managed outpatient with [facility] -on gabapentin, prn baclofen -hydromorphone intrathecal pump (next refill due mid-March), PRN hydrocodone for breakthrough pain ##Mild rhabdomyolysis -CK on arrival at 275 -LR at 125ml/hr x 1 bag -CK normalized: 116 ##Microscopic hematuria -asymptomatic, denies visible blood in urine -3+ blood in urine -follows with [facility] for left nephrolithiasis and microscopic hematuria, hematuria workup negative with monitoring of stone per urology notes from 07/21/24, to f/u in 1 year with UA and KUB -CTAP with 8 x 11 mm non-obstructing left kidney stone ##Leukopenia|thrombocytopenia -followed by heme in past -hx of low trends without reports of bleeding, bruising or new constitutional symptoms -WBCs 4.99, platelets 134 -ensure f/u with discharge DVT proph: on Warfarin Disposition: Continued admission on med/surg, pending discharge with symptom improvement and f/u with HH services vs STR at d/c Full code Admission and Anticipated Discharge Date Admission Date: February 28, 2025 Subjective Still with c/o left foot pain and redness. Eating/drinking well. Reports pain being relieved with oral hydrocodone for left foot pain. Did work with PT yesterday. Eating and drinking adequately. No c/o fever or chills. Review of Systems Review of Systems: All systems reviewed & are unremarkable except as noted in Subjective Physical Exam Physical Exam: GENERAL APPEARANCE: A&O. Sitting comfortably in bed. NAD. SKIN: Normal color without rashes or lesions. Normal turgor. HEENT: Head AT/NC. Buccal mucosa is moist and pink. HEART: RRR without m/g/r. LUNGS: Normal inspiratory effort. CTA without w/r/r. ABDOMEN: No guarding or rigidity. Normoactive BS in all four quadrants. Abdomen soft and NT. MSK: No bony gross/deformities throughout. ROM intact. EXTREMITIES: No peripheral cyanosis. Bilateral lower extremities with hyperpigmentation and scaling. Capillary refill to left toes at 2-3 seconds. Left lower ext/ankle/left dorsal aspect of foot with persistent erythema and warmth to palpation. LLE tender to palpation. No additional migration of redness. Swelling to left lower leg/left foot without pitting edema. No edema of right lower extremity. +Pedal pulses present bilaterally. Right Neuro: CN 2-12 grossly intact. No focal neuro deficits. PSYCHIATRIC: Normal affect. Eye contact is good. Speech is normal rate and content. Responses are appropriate. Results & Data Results & Data Vital Signs (Past 12 Hours) Vital Signs Temp Pulse Resp BP Pulse Ox O2 Del Method 03/05/25 08:15 67 95 Room Air 03/05/25 07:31 36.7 C 116 H 16 126/70 95 Room Air PG Care Time/CCT Total # of Minutes Spent Total Time Spent with Patient: Total time spent is greater than 50% in coordination of care (as documented) at patient's floor/unit and/or counseling patient: Coding Level of Care Code 07194 SUB INP/OBS CARE 3/50MIN Diagnoses Cellulitis of left lower extremity L03.116 Chronic venous stasis dermatitis I87.2 Chronic radicular lumbar pain M54.16; G89.29 Presence of intrathecal pump Z96.89 Opioid dependence in controlled environment F11.20 Paroxysmal atrial fibrillation I48.0"
[2025-03-06 06:47] LABS: Hematocrit (blood only) 37.2 % (42.0-52.0); Hemoglobin 12.0 g/dl (14.0-18.0); Immature Granulocytes # (auto) 0.02 K/uL (0.01-0.20); Immature Granulocytes % (auto) 0.6 %; Mean Corpuscular Hemoglobin 31.3 pg (25.0-34.0); Mean Corpuscular Volume 96.9 fL (80.0-100.0); Platelet Count 146 K/uL (130-400); RDW Standard Deviation 56.0 fL (36.4-46.3); Red Blood Count 3.84 M/uL (4.70-6.10); White Blood Count 3.46 K/ul (4.8-10.8)
[2025-03-06 06:58] LABS: Anion Gap 2.0 (3-11); Blood Urea Nitrogen 16.0 mg/dl (6-23); Calcium 8.4 mg/dl (8.6-10.3); Carbon Dioxide 30.0 mmol/L (21-32); Chloride 108.0 mmol/L (98-107); Creatinine Clr Calc Pharmacy 109.5 ml/min; Glucose 94.0 mg/dl (70-99(Fasting)); INR 2.6 (0.9-1.1); Potassium 4.2 mmol/L (3.5-5.1); Prothrombin Time 26.3 Seconds (9.0-12.0); Sodium 140.0 mmol/L (136-145)
[2025-03-06] MEDS ORDERED: WARFARIN SOD 10 MG TAB PO SCH (16:00)
[2025-03-06] MEDS: WARFARIN SOD 7.5 MG TAB PO SCH (16:01)
[2025-03-06 16:10] VITALS: RESP 17; TEMP 97.5; O2SAT 94
--- NOTE | 2025-03-06 16:10 | Discharge Summary ---
"Discharge Summary Date of Service March 06, 2025 Principal Dx & Hospital Course #1 = Principal Diagnosis (1) Cellulitis of left lower extremity: (2) Chronic venous stasis dermatitis: (3) Chronic radicular lumbar pain: (4) Presence of intrathecal pump: (5) Opioid dependence in controlled environment: (6) Paroxysmal atrial fibrillation: Plan This is a 69-year-old male with a history of paroxysmal A-fib on warfarin, chronic lymphedema, chronic pain with pain pump, who presented to the hospital following a fall. Patient unsure regarding mechanism of fall as he had dizziness prior to fall. CT hoff scan done in ED. Upon examination in ED there were concerns for possibly developing cellulitis to left foot and ankle given the redness on exam. Mr. Choe reports his left foot is significantly better today. States he is razia dy to go home. He has been without fever, chills, nausea/vomiting. He has responded to his course of Cefipime with signicant improvement as his erhythem to his left foot has improved. Opting to decline short term rehab and follow up in home with home health. ##Left lower extremity cellulitis|Chronic venous stasis-with fall prior to arrival for admission, sudden onset over 48 hour period without recent report of bites, puncture wounds, water/soil exposure or pressure injury -afebrile, no chills, no erythema on exam -final BCs without growth -WC to left leg with pseudomonas aeruginosa, sensitivities reported and treated accordingly with quinolone for d/c treatment (Cipro vs Levaquin for less effects/holding while on Warfarin) -left foot x-ray without osteo -venous doppler to r/o DVT: No DVT appreciated -uric acid WNL -d/c Dapto, Ceftriaxone -Cefipime 2G IV Q8H -d/c'ed with prescription for Cipro 500mg BID, consulted [facility] clinic for hold of Warfarin dosing while on antibiotic therapy, INR on 03/09/25 with homehealth ##Paroxysmal A-fib-hx of in setting of pneumonia-HR trending in 60s/70s with vital signs review -regular rate/rhythm on exam -follows with cards outpatient -JOVANY 09/30/24 with EF 55-60%, moderate concentric left ventricular hypertrophy -Amiodarone po -on home AC regimen with Warfarin (failed Eliquis in past due to several peripheral thromboses from 2021) -INR 2.6, Warfarin 7.5mg today -d/c instructions provided to hold doses of Warfarin (to HOLD on 03/07/25 and 03/10/25) as outlined in discharge and f/u INR on 03/09/25 due to Cipro prescription ##Chronic back pain secondary to lumbar spine fusion with hx of multiple prior procedures and polyneuropathy |chronic pain syndrome -managed outpatient with [facility] -on gabapentin, prn baclofen -hydromorphone intrathecal pump (next refill due mid-March), PRN hydrocodone for breakthrough pain ##Mild rhabdomyolysis -CK on arrival at 275 -LR at 125ml/hr x 1 bag -CK normalized: 116 ##Microscopic hematuria -asymptomatic, denies visible blood in urine -3+ blood in urine -follows with [facility] for left nephrolithiasis and microscopic hematuria, hematuria workup negative with monitoring of stone per urology notes from 07/21/24, to f/u in 1 year with UA and KUB -CTAP with 8 x 11 mm non-obstructing left kidney stone ##Leukopenia|thrombocytopenia -followed by heme in past -hx of low trends without reports of bleeding, bruising or new constitutional symptoms -WBCs 4.99, platelets 134 -ensure f/u with discharge DVT proph: on Warfarin Disposition: Discharge home with homehealth Full code Admission HPI Per Admitting Provider This is a 69-year-old male with a history of paroxysmal atrial fibrillation on warfarin, chronic pain with pain pump, polyneuropathy, hypertension, chronic venous stasis who came to the hospital today following worsening lower extremity pain. According to the patient, he fell on outside of his apartment. He did not think anything of it however over the past couple of days he noticed that his lower extremity has become more painful and red. He still does not understand how he fell whether he slipped however that he lost his balance but he said he felt dizzy slightly before falling. Here in the emergency department trauma alert was activated and the hoff imaging study was done CT lumbar pelvis head chest cervical spine ankle abdomen all within normal limits however examination of his lower extremities showed evidence of cellulitis, total CK2 75 and procalcitonin was 4.45. Cultures were obtained and patient was empirically started on IV antibiotics and will be admitted to the hospital for the management. Discharge Exam GENERAL APPEARANCE: A&O. Sitting comfortably in bed. NAD. SKIN: Normal color without rashes or lesions. Normal turgor. HEENT: Head AT/NC. Buccal mucosa is moist and pink. HEART: RRR without m/g/r. LUNGS: Normal inspiratory effort. CTA without w/r/r. ABDOMEN: No guarding or rigidity. Normoactive BS in all four quadrants. Abdomen soft and NT. MSK: No bony gross/deformities throughout. ROM intact. EXTREMITIES: No peripheral cyanosis. Bilateral lower extremities with hyperpigmentation and scaling. Capillary refill to left toes at 2-3 seconds. Left lower ext/ankle/left dorsal aspect of foot with no erythema or warmth to palpation. LLE +Pedal pulses present bilaterally. Neuro: CN 2-12 grossly intact. No focal neuro deficits. PSYCHIATRIC: Normal affect. Eye contact is good. Speech is normal rate and content. Responses are appropriate. Discharge Plan Discharge Items Patient Disposition: Home - Self-Care Reason For Visit: CELLUITIS Discharge Diagnosis: Left lower extremity cellulitis Condition on Discharge: Fair Activity: Resume your previous activity Bathing: No limitations Driving/Machine Use: No limitations Non-emergency contact: Primary Care Provider Call non-emergency contact if: you have any medication questions, your symptoms worsen, your pain is not controlled, your pain is worsening, your pain is unusual for you, your pain is concerning for you, you have a fever, your temperature is above 101, your wound has increased redness, your wound has increased drainage and your wound pain has increased Follow-up/Referrals: Sp Vega, [facility] [employer] [Primary Care Provider] - (Follow up in one week ) Diet: Regular Addtl Attending Provider Instructions: Medications: Your medication list has been reviewed and reconciled upon discharge to ensure accuracy and continuity of care. An updated list of all your medications is included with your hospital discharge paperwork. Please review this list closely, and make note of any changes. A new medication called Ciprofloxacin has been sent to your pharmacy. Take Ciprofloxacin 500mg two times a day for the next seven days. Start this medication this evening when you go home. This is an antibiotic to help the infection in your leg. PLEASE NOTE REGARDING YOUR COUMADIN DOSING: YOU ARE TO TAKE 7.5MG TODAY (03/06/25) WHETHER YOU RECEIVE THIS DOSE PRIOR TO DISCHARGE IN THE HOSPITAL OR IF YOU GO HOME AND TAKE THE DOSE. PLEASE SKIP YOUR COUMADIN DOSES ON THE FOLLOWING DATES: SUNDAY (03/07/25) AND SUNDAY (03/10/25). THE NEW ANTIBIOTIC YOU ARE BEING PRESCRIBED MAY CAUSE YOUR INR TO BE INCREASED THEREFORE IT IS IMPORTANT YOU SKIP THESE DOSES. YOU WILL FOLLOW UP WITH HOME HEALTH ON SUNDAY (03/09/25) AND THEY WILL BE DRAWING YOUR INR SO THE REMAINDER OF YOUR COUMADIN DOSING CAN BE DETERMINED WHILE YOU ARE TAKING THE ANTIBIOTIC. IT IS RECOMMENDED YOU HAVE DAILY INR'S WHILE TAKING YOUR ANTIBIOTIC. PLEASE ENSURE [facility] SENDS YOUR INR RESULTS TO THE ANTICOAGULATION CLINIC FOR REVIEW. YOU CAN REACH OUT TO THEM ANYTIME WITH QUESTIONS AT [phone]. A REMINDER YOUR ROUTINE COUMADIN DOSING REGIMEN IS FOLLOWS PER YOUR LAST VISIT TO THE ANTICOAGULATION CLINIC: COUMADIN 7.5MG SUNDAY, SUNDAY, SUNDAY, SUNDAY, SUNDAY, SUNDAY COUMADIN 10MG SUNDAY Activity: You can do normal everyday activities as your body allows. Take rest breaks if you feel tired. Do not overexert. Stop activity if you have pain, shortness of breath or feel dizzy. Follow-up appointments: Make an appointment with your primary care physician within one week of discharge. A copy of this summary will be sent to them. Every time you see your primary care physician, or any other doctor, bring your medication list, and a list of questions. CONTACT YOUR PRIMARY CARE PROVIDER if you experience any of the following: Shortness of breath or difficulty breathing Fevers or chills Feeling tired with normal activity or experiencing dizziness or fainting Difficulty following your treatment plan, or difficulty taking medications CALL 911 OR GO TO THE EMERGENCY DEPARTMENT if you experience any of the following: Severe abdominal pain or nausea/vomiting Severe chest pain, or chest pain that radiates (moves) to your jaw or arm Sudden, severe shortness of breath or difficulty breathing Thank you for allowing us to participate in your care. Pending Studies at Discharge: No Stand-Alone Forms: [employer], Smoking Cessation Medications and DC Order Prescriptions: New ciprofloxacin HCl 500 mg tablet 500 mg PO BID Qty: 14 0RF Continued diclofenac sodium 1 % gel 2 g topical DAILY PRN (Reason: Pain) ferrous sulfate [Feosol] 325 mg (65 mg iron) tablet 325 mg PO DAILY calcium carbonate-vitamin D2 600 mg calcium- 200 unit tablet 1 tab PO DAILY Rx Instructions: reported hydromorphone in 0.9 % NaCl 50 mg/50 mL (1 mg/mL) prefilled pump reservoir See Rx Instructions continuous subcutaneous infusion UD PRN (Reason: Pain) Rx Instructions: intrathecal pain pump, use as directed PRN; managed by pain clinic baclofen 10 mg tablet 10 mg PO TID PRN (Reason: muscle spasm) Qty: 30 0RF levothyroxine 150 mcg tablet 150 mcg PO [id number] Patient Comments: HOLD ON SUNDAYS Rx Instructions: HOLD ON SUNDAYS warfarin 5 mg tablet 5 mg PO UD Patient Comments: 02/28- [facility] 1 tab po daily at 6pm. Prescribed by [facility] provider. Rx Instructions: 10mg q Sunday; 7.5mg x 6 days per [facility] orally use as directed furosemide 40 mg tablet 40 mg PO DAILY Qty: 90 3RF pantoprazole 40 mg tablet,delayed release (DR/EC) 40 mg PO DAILY Qty: 90 3RF Narcan 4 mg/actuation spray,non-aerosol 4 mg intranasal Q2M PRN (Reason: opioid overdose) Qty: 2 0RF Rx Instructions: spray 1 dose into ONE nostril; alternate nostrils w each dose until help arrives lisinopril 5 mg tablet 5 mg PO DAILY Qty: 100 3RF gabapentin 400 mg capsule 400 mg PO TID Qty: 90 2RF testosterone 20.25 mg/1.25 gram (1.62 %) gel in metered-dose pump 2 pump topical DAILY Qty: 75 3RF Rx Instructions: apply 1 pump amount over each area of both sides trazodone 50 mg tablet 100 mg PO HS 90 Days Qty: 180 1RF tadalafil 5 mg tablet 5 mg PO Q3D Qty: 10 5RF escitalopram oxalate [Lexapro] 20 mg tablet 20 mg PO DAILY Qty: 90 3RF amiodarone 200 mg tablet 100 mg PO DAILY Qty: 90 3RF hydrocodone-acetaminophen 5-325 mg tablet 1 tab PO BID PRN (Reason: break through pain) miconazole nitrate 2 % Powder 1 applic TOPICAL BID lidocaine 5 % Adhesive Patch,Medicated 1 patch TOPICAL DAILY Rx Instructions: leave on most painful area for up to 12 hrs Multi-Vitamin W/Minerals Capsule 1 cap PO DAILY polyethylene glycol 3350 8.5 gram powder in packet 17 gm PO DAILY cyanocobalamin (vitamin B-12) 1,000 mcg capsule 0 mcg PO DAILY Patient Comments: 02/28- [facility] unable to verify. Original:1000mcg po daily Rx Instructions: OTC Discontinued prednisone 20 mg tablet 20 mg PO .COMPLEX Patient Comments: 02/28-filled 02/17 10 day supply #15 Rx Instructions: 20 mg orally 2 PO daily x5 days, then 1 PO daily x5 days; Discharge Orders: Discharge Order (Routine); Ordered 03/06/25 Ordered By: Sarah Montano Admission Data Admit Date/Time: 02/28/25 15:16 Attending Provider: Angelina Salgado Admit Provider: Robb Caruso Primary Care Provider: Sp Vega Other Providers: Robb Caruso; [facility] Fax; [facility]; [place] Stay Data Consultations 02/28/25 14:45 ED Decision to Admit Stat Diagnostic Imagining Performed 02/28/25 12:49 CT abd pelvis IV con only Stat CT cervical spine wo con Stat CT chest diagnostic w con Stat CT head/brain wo con Stat 02/28/25 12:50 CT lumbar spine w con Stat 03/05/25 08:55 US venous doppler LE LT Stat Pending Results Patient Have Any Pending Studies at Discharge: No Discharge Instructions Given to Patient (Per Discharging Provider) Medications: Your medication list has been reviewed and reconciled upon discharge to ensure accuracy and continuity of care. An updated list of all your medications is included with your hospital discharge paperwork. Please review this list closely, and make note of any changes. A new medication called Ciprofloxacin has been sent to your pharmacy. Take Ciprofloxacin 500mg two times a day for the next seven days. Start this medication this evening when you go home. This is an antibiotic to help the infection in your leg. PLEASE NOTE REGARDING YOUR COUMADIN DOSING: YOU ARE TO TAKE 7.5MG TODAY (03/06/25) WHETHER YOU RECEIVE THIS DOSE PRIOR TO DISCHARGE IN THE HOSPITAL OR IF YOU GO HOME AND TAKE THE DOSE. PLEASE SKIP YOUR COUMADIN DOSES ON THE FOLLOWING DATES: SUNDAY (03/07/25) AND SUNDAY (03/10/25). THE NEW ANTIBIOTIC YOU ARE BEING PRESCRIBED MAY CAUSE YOUR INR TO BE INCREASED THEREFORE IT IS IMPORTANT YOU SKIP THESE DOSES. YOU WILL FOLLOW UP WITH HOME HEALTH ON SUNDAY (03/09/25) AND THEY WILL BE DRAWING YOUR INR SO THE REMAINDER OF YOUR COUMADIN DOSING CAN BE DETERMINED WHILE YOU ARE TAKING THE ANTIBIOTIC. IT IS RECOMMENDED YOU HAVE DAILY INR'S WHILE TAKING YOUR ANTIBIOTIC. PLEASE ENSURE [facility] SENDS YOUR INR RESULTS TO THE ANTICOAGULATION CLINIC FOR REVIEW. YOU CAN REACH OUT TO THEM ANYTIME WITH QUESTIONS AT [phone]. A REMINDER YOUR ROUTINE COUMADIN DOSING REGIMEN IS FOLLOWS PER YOUR LAST VISIT TO THE ANTICOAGULATION CLINIC: COUMADIN 7.5MG SUNDAY, SUNDAY, SUNDAY, SUNDAY, SUNDAY, SUNDAY COUMADIN 10MG SUNDAY Activity: You can do normal everyday activities as your body allows. Take rest breaks if y ou feel tired. Do not overexert. Stop activity if you have pain, shortness of breath or feel dizzy. Follow-up appointments: Make an appointment with your primary care physician within one week of dis charge. A copy of this summary will be sent to them. Every time you see your primary care physician, or any other doctor, bring your medication list, and a list of questions. CONTACT YOUR PRIMARY CARE PROVIDER if you experience any of the following: Shortness of breath or difficulty breathing Fevers or chills Feeling tired with normal activity or experiencing dizziness or fainting Difficulty following your treatment plan, or difficulty taking medications CALL 911 OR GO TO THE EMERGENCY DEPARTMENT if you experience any of the following: Severe abdominal pain or nausea/vomiting Severe chest pain, or chest pain that radiates (moves) to your jaw or arm Sudden, severe shortness of breath or difficulty breathing Thank you for allowing us to participate in your care. Total Time Total Time Spent Total Time Spent (In Minutes): 50 minutes total Coding Level of Care Code 28599 INP/OBS DISCH >30 MIN Diagnoses Cellulitis of left lower extremity L03.116 Chronic venous stasis dermatitis I87.2 Chronic radicular lumbar pain M54.16; G89.29 Presence of intrathecal pump Z96.89 Opioid dependence in controlled environment F11.20 Paroxysmal atrial fibrillation I48.0"
[2025-03-06 16:28] VITALS: BP 138/74; PULSE 69
== END 2025-03-06 18:17 | disposition home health service (06) | DRG 603 ==
LOC: ED 12:32 → SUATTDRO 15:16 → 3E 15:16